=== PATIENT | female | born 1945 | race Caucasian/White ===

== ENCOUNTER 2018-01-25 19:02 | Emergency (ER) | payer MEDICARE, BC, SELFPAY ==
[2018-01-25 19:06] VITALS: BP 154/81; PULSE 98; RESP 15; TEMP 37.1; O2SAT 93; BMI 30.8
--- NOTE | 2018-01-25 19:26 | EKG12_ITS ---
Test Reason : GI BLEED Blood Pressure : / mmHG Vent. Rate : 087 BPM Atrial Rate : 087 BPM P-R Int : 118 ms QRS Dur : 076 ms QT Int : 364 ms P-R-T Axes : 056 054 042 degrees QTc Int : 438 ms Normal sinus rhythm Nonspecific ST abnormality Abnormal ECG Confirmed by BOOGIE GUNTER, DARREN ([id number]), fashion editor TARA SERRANO ([id number]) on 01/29/2018 3:16:23 PM Referred By: LIZETH Confirmed By:DARREN HYMAN MD
[2018-01-25] MEDS: 0.9% Normal Saline 1,000 ML 1000 ML IV (19:36)
--- NOTE | 2018-01-25 19:38 | ED.VISSUMM ---
- ER Visit Summary Date of Service: 01/25/18 Chief Complaint: Diarrhea History of Present Illness: The patient is a 72 F presenting with diarrhea. She states she had multiple bowel movements on . She felt improved throughout the weekend. States that today she began having diarrhea again. She states she has had black tarry stool. Her last stool was blood-tinged mucus. She has had dizziness with no syncope. She denies abdominal pain. Denies recent antibiotics, recent travel. Denies possibility of bad food exposure. She is not on blood thinners. History of previous GI bleed secondary to NSAIDs. Physical Examination: Vitals are stable. Patient is afebrile. Alert no acute distress. HEENT exam is unremarkable. Neck is supple. Lungs are clear and equal bilaterally. Heart is regular rate and rhythm. Abdomen is soft nontender nondistended. No guarding or rebound Extremities are unremarkable. Skin is warm and dry. No focal neurologic deficit. Remainder of exam is unremarkable. Emergency Department Course and Treatment: Patient is given IV fluids. EKG is normal sinus rhythm rate of 87. CBC, chemistries unremarkable. INR is 1.2. Stool is guaiac negative. Orthostatics are negative. Patient had no further diarrhea in the emergency department. She has a normal white count. Her hemoglobin is 15.2. She is comfortable with discharge home and follow-up with her primary care physician. She is advised return to ED for any worsening complaints. Disposition: Discharge home Impression: Diarrhea This note was generated with [employer] dictation software. It may contain incorrect words, spelling, and punctuation that were not noted in review of the chart prior to signing ED Disposition - Plan for ED Patient: Chief Complaint: GI Bleed Instructions: ED Diarrhea Viral Referrals: Nelia Smith DO [Primary Care Provider] -
[2018-01-25 19:39] VITALS: BP 155/71; BP 168/67; BP 170/80; PULSE 87; PULSE 90
[2018-01-25 19:50] LABS: Absolute Lymphocyte Count 1.29 X10^3/ul (0.83-4.51); Absolute Neutrophil Count 5.5 X10^3/uL (2.0-7.7); Basophil# 0.01 X10^3/uL; Basophil% 0.1 % (0-1); Eosinophil# 0.07 X10^3/uL; Hematocrit 45.7 % (37-47); Hemoglobin 15.2 g/dl (12.0-15.0); Lymphocyte # 1.29 X10^3/ul (4.0); Lymphocyte % 17.6 % (19-41); Mean Corp Hgb Conc 33.3 g/gl (32-36); Mean Corpuscular Hgb 31.6 pg (27.0-32.0); Monocyte# 0.44 X10^3/uL; Neutrophil % 75.2 % (47-70); POSITIVE COUNT NO; POSITIVE DIFFERENTIAL NO; POSITIVE MORPHOLOGY NO; Platelet Count 215 K/mm3 (150-450); RBC Distribution Width CV 13.5 % (11.6-14.6); RBC Distribution Width SD 46.9 fl (35.1-43.9); Red Blood Count 4.81 M/mm3 (4.2-5.4); White Blood Count 7.3 K/mm3 (4.4-11.0)
[2018-01-25 19:57] LABS: International Normalized Ratio 1.2; Partial Thromboplast Time 27.6 Seconds (24.1-36.2); Prothrombin Time (Protime)PT. 14.9 SECONDS (11.7-14.9)
[2018-01-25 22:00] LABS: Anion Gap 9 (5-15); BUN 13 mg/dL (7-18); BUN/Creat Ratio 16.9 RATIO (10-20); Calcium,Total 8.5 mg/dL (8.5-10.1); Chloride 107 mmol/L (98-107); Creatinine, Serum 0.77 mg/dL (0.55-1.02); EST Glomerular Filtration Rate 78 mL/min (>60); Est Glom Filt Rate - Afr Amer 94 mL/min (>60); Estimated Creatinine Clearance 44.41 ml/min; Glucose 118 mg/dL (74-106); Potassium 3.6 mmol/L (3.5-5.1); Sodium Level 140 mmol/L (136-145)
--- NOTE | 2018-01-25 22:24 | ED.DEP ---
ED Disposition - Plan for ED Patient: Chief Complaint: GI Bleed Instructions: ED Diarrhea Viral Referrals: Nelia Smith DO [Primary Care Provider] -
[2018-01-25 22:43] VITALS: BP 172/78; PULSE 82; RESP 20
== END 2018-01-25 22:50 | disposition home or self-care (01) ==
PROVIDERS: Emergency Provider Emergency Medicine; Family Provider Internal Medicine; PCP Internal Medicine
DX: R19.7 Diarrhea, unspecified (principal); R11.0 Nausea; I10 Essential (primary) hypertension; R42 Dizziness and giddiness; Z79.82 Long term (current) use of aspirin
CPT/HCPCS: 80048; 82274; 85025; 85610; 85730; 93005; 96360; 99285; J7030; A4216

== ENCOUNTER → 2018-09-10 08:32 | Outpatient (CLI) | payer MEDICARE, BC, SELFPAY ==
[2018-09-10 10:42] LABS: BUN 12 mg/dL (7-18); EST Glomerular Filtration Rate 65 mL/min (>60); Est Glom Filt Rate - Afr Amer 79 mL/min (>60)
--- OUTSIDE RECORDS SUMMARY | 2018-10-26 21:06 | XMS RPT_ITS | Continuity of Care Document ---
:1945 Author Organization [facility] Address [address] [facility] [address] [place] [address] Phone Care Team Providers Name Role Phone Nelia Smith DO Unavailable Andrei GUNTER, Dr. Yas Hurt Unavailable RIYA Sorensen Unavailable Unavailable Jennifer HARRISAlbina Unavailable Unavailable Unavailable Problems Name Dates Details Abnormal EKG (R94.31, 794.31) Status: Active Allergic rhinitis due to other allergen (J30.89, 477.8) Comments: note written forHSA for otc meds Status: Active Annual Medicare Phyiscal WITHOUT abnormal findings (Renamed from Encounter for general adult medical examination without abnormal findings) (Z00.00, V70.9) Status: Active Aortic aneurysm, abdominal (I71.4, 441.4) Comments: stable & repaired - followed by cheo ROCKWE[place], abdominla pain Status: Active Aortic dissection, thoracic (I71.01, 441.01) Comments: s/p repair 2012- stable and good Status: Active Arm DVT (deep venous thromboembolism), acute, bilateral (I82.623, 453.82) Comments: 12/20/15 presented with pain in LUEOn Xarelto since 12/20/15Repeat Dopplers:Acute superficial thromblephitis, no DVTDenies pain or sweeling in arm, deneis CP, SOBdenies bleeding, blood in stool , black st ioolHad colitis of left hemicolon with GI bleed 12/14/15(before xarelto) Status: Active Benign essential HTN (I10, 401.1) Status: Active Bladder mass (N32.89, 596.89) Comments: ? bladder air/bloodMay 24 Dr crwoley Cystoscopy Status: Active BMI 32.0-32.9,adult (Z68.32, V85.32) Status: Active Body mass index 31.0-31.9, adult (Renamed from BMI 31.0-31.9,adult) (Z68.31, V85.31) Status: Active Chronic obstructive asthma with acute exacerbation (Renamed from Chronic obstructive asthma with exacerbation) (J44.1, 493.22) Status: Active Colitis (K52.9, 558.9) Comments: no raw fruit vegatables Status: Active COPD (chronic obstructive pulmonary disease) (J44.9, 496) Comments: alpha 1-antitrypsin defic screen 07/29/16 Status: Active Cough (R05, 786.2) Status: Active Deliveries (Parity) Comments: 2 Status: Active Diastolic dysfunction (I51.9, 429.9) Comments: already on BB Status: Active Diverticulosis of colon (K57.30, 562.10) Comments: stable Status: Active Encounter for annual general medical examination with abnormal findings in adult (Z00.01, V70.0) Status: Active Encounter for annual general medical examination with abnormal findings in adult (Z00.01, V70.0) Status: Active Encounter for screening for malignant neoplasm of colon (Renamed from Special screening for malignant neoplasms, colon) (Z12.11, V76.51) Comments: pt refused stool cards a;nd cologard for this yrscope due next Status: Active Encounter for screening for malignant neoplasm of colon (Renamed from Special screening for malignant neoplasms, colon) (Z12.11, V76.51) Status: Active Encounter for screening mammogram for breast cancer (Renamed from Encounter for screening mammogram for malignant neoplasm of breast) (Z12.31, V76.12) Status: Active Family history of diabetes mellitus (Z83.3, V18.0) Status: Active Family history of malignant neoplasm of breast (Z80.3, V16.3) Status: Active Fibromyalgia (M79.7, 729.1) Comments: stable Status: Active Heart murmur (R01.1, 785.2) Status: Active Hernia, umbilical (K42.9, 553.1) Status: Active History of peptic ulcer (Z87.11, V12.71) Status: Active Insomnia (G47.00, 780.52) Status: Active Irritable bowel syndrome (K58.9, 564.1) Status: Active Need for prophylactic vaccination and inoculation against influenza (Renamed from Need for immunization against influenza) (Z23, V04.81) Status: Active Nonsmoker (Z78.9, V49.89) Status: Active Osteopenia (M85.80, 733.90) Comments: dexa 09/13 Status: Active Pain in joint, upper arm, right (M25.521, 719.42) Comments: new develpment Status: Active PFO (patent foramen ovale) (Q21.1, 745.5) Comments: negative bubble study on echo 2018 Status: Active Post-menopausal (Z78.0, V49.81) Status: Active Pregnancies () Comments: 2 Status: Active PRE-OPERATIVE EXAMINATION, UNSPECIFIED (Z01.818, V72.84) Status: Active Unspecified Diagnosis Status: Active Urine, incontinence, stress female (N39.3, 625.6) Comments: lu rx this but i refill for her Status: Active Vaginal yeast infection (B37.3, 112.1) Comments: will use otc 7 monostat and gave her coupon Status: Active Vitamin D deficiency (E55.9, 268.9) Status: Active Medications Name Dates Details Amitriptyline HCl 10 MG Oral Tablet 1 (one) Tablet daily for 0 days Quantity: 90 {Tablet} Refills: 3 Ordered:29-Jun-2018 Vinita Smith DO, DO, Kathleen Start : 29-Jun-2018 Active Baby Aspirin 81 MG Oral Tablet Chewable (81 MG) Active MELATONIN, 10MG (Oral Tablet) 1 (one) Tablet Tablet qhs for 0 days Quantity: 30 {Tablet} Refills: 0 Ordered:17-Dec-2015 Jaimee Sorensen LPN Start : 14-Dec-2015 Active Metoprolol Tartrate 50 MG Oral Tablet 1 (one) Tablet bid for 90 days Quantity: 180 {Tablet} Refills: 3 Ordered:09-Oct-2017 Vinita Smith DO, DO, Kathleen Start : 09-Oct-2017 Active Vitamin B6 250 MG Oral Tablet 1 (one) Milligram 50mg bid for 0 days Quantity: 100 {Milligram} Refills: 5 Ordered:24-Sep-2017 Vinita Smith DO, DO, Kathleen Start : 24-Sep-2017 Active VITAMIN D3, 2000UNIT (Oral Capsule) 2 (two) Capsule Capsule qd for 0 days Quantity: 60 {Capsule} Refills: 3 Ordered:30-Aug-2015 Vinita Smith DO, DO, Kathleen Start : 21-Aug-2015 Active ADVIL, 200MG (Oral Tablet) 1 QD for 0 days Refills: 0 Ordered:11-Nov-2012 CANDICE Carrillo End : 11-Nov-2012 Inactive Comments:(pt been taking 6-10 daily for neck pain) Albuterol Sulfate (2.5 MG/3ML) 0.083% Inhalation Nebulization Solution 1 (one) Nebulized Soln q 6 hrs prn for 30 days Quantity: 1 {Box} Refills: 0 Ordered:20-Oct-2016 Vinita Smith DO, DO, Kathleen Start : 20-Oct-2016 End : 19-Nov-2016 Inactive ALEVE, 220MG (Oral Capsule) 2 (two) Capsule Capsule qd for 30 days Refills: 0 Ordered:10-Apr-2015 CANDICE Carrillo Start : 05-Feb-2015 End : 10-Apr-2015 Inactive JEANNIE-D ALLERGY & CONGESTION, 60-120MG (Oral Tablet Extended Release 12 Hour) 1 Tablet ER 12HR q12hr for 0 days Quantity: 20 {Tablet_ER_12HR} Refills: 0 Ordered:16-Feb-2012 Rosy Tuttle LPN Start : 08-Jul-2011 End : 16-Feb-2012 Inactive AMBIEN, 5MG (Oral Tablet) 1 (one) Tablet qhs prn for 30 days Quantity: 10 {Tablet} Refills: 0 Ordered:14-Dec-2015 Albina Rodriguez CNP Start : 14-Dec-2015 End : 14-Dec-2015 Inactive AMITRIPTYLINE HCL, 10MG (Oral Tablet) 1 Tablet QD for 0 days Quantity: 90 {Tablet} Refills: 3 Ordered:26-Nov-2015 Jaimee Sorensen LPN Start : 04-Jul-2015 End : 26-Nov-2015 Inactive AMITRIPTYLINE HCL, 10MG (Oral Tablet) 1 Tablet QD for 0 days Quantity: 90 {Tablet} Refills: 3 Ordered:26-Nov-2015 Jaimee Sorensen LPN Start : 04-Jul-2015 End : 26-Nov-2015 Inactive BACTRIM DS, 800-160MG (Oral Tablet) 1 (one) Tablet bid for 0 days Quantity: 20 {Tablet} Refills: 0 Ordered:28-Nov-2014 CANDICE Carrillo Start : 23-Oct-2014 End : 28-Nov-2014 Inactive Biaxin XL Pac 500 MG Oral Tablet Extended Release 24 Hour 2 (two) Tablet ER 24HR daily for 10 days Quantity: 20 {Tablet} Refills: 0 Ordered:14-Oct-2016 Jennifer HARRIS Albina Rudd Start : 14-Oct-2016 End : 24-Oct-2016 Inactive BIAXIN, 500MG (Oral Tablet) 1 Tablet bid for 0 days Quantity: 20 {Tablet} Refills: 0 Ordered:01-Jul-2012 Jaimee Sorensen LPN Start : 27-Feb-2012 End : 01-Jul-2012 Inactive Comments:will call if needvoid after 30 days CALMOSEPTINE, 0.44-20.6% (External Ointment) 1 (one) Ointment bid prn for 30 days Refills: 0 Ordered:15-Jan-2016 Jennifer HARRISAlbina Start : 14-Dec-2015 End : 13-Jan-2016 Inactive CHERATUSSIN AC, 100-10MG/5ML (Oral Syrup) 1 Teaspoon(s) q hs prn cough for 0 days Quantity: 6 {Ounce(s)} Refills: 0 Ordered:01-Jul-2012 Jaimee Sorensen LPN Start : 27-Feb-2012 End : 01-Jul-2012 Inactive CIPRO, 500MG (Oral Tablet) 1 Tablet bid for 10 days Quantity: 20 {Tablet} Refills: 0 Ordered:14-Jun-2010 Vinita Smith DO, DO, Kathleen Start : 14-Jun-2010 End : 24-Jun-2010 Inactive CYCLOBENZAPRINE HCL, 10MG (Oral Tablet) 1 (one) Tablet Tablet bid as needed for 0 days Quantity: 20 {Tablet} Refills: 0 Ordered:19-Apr-2015 CANDICE Carrillo Start : 05-Feb-2015 End : 19-Apr-2015 Inactive Comments:Medication taken as needed. ELAVIL, 10MG/ML (IM Solution) 1 QHS / HS for 0 days Refills: 0 Ordered:21-Jun-2007 Jaimee Sorensen LPN End : 21-Jun-2007 Inactive EVISTA, 60MG (Oral Tablet) 1 Tablet QD for 0 days Quantity: 90 {Tablet} Refills: 3 Ordered:10-Mar-2016 Jaimee Sorensen LPN Start : 04-Jul-2015 End : 10-Mar-2016 Inactive EVISTA, 60MG (Oral Tablet) 1 Tablet QD for 0 days Quantity: 90 {Tablet} Refills: 3 Ordered:10-Mar-2016 Jaimee Sorensen LPN Start : 04-Jul-2015 End : 10-Mar-2016 Inactive FEXOFENADINE HCL, 60MG (Oral Tablet) 1 (one) Tablet Tablet bid for 0 days Quantity: 60 {Tablet} Refills: 0 Ordered:10-Oct-2014 CANDICE Carrillo Start : 03-Mar-2014 End : 10-Oct-2014 Inactive FUROSEMIDE, 20MG (Oral Tablet) 1 (one) Tablet qd for 0 days Quantity: 4 {Tablet} Refills: 0 Ordered:04-Apr-2015 Jaimee Sorensen LPN Start : 28-Mar-2015 End : 04-Apr-2015 Inactive Levaquin 500 MG Oral Tablet 1 Tablet daily for 10 days Quantity: 10 {Tablet} Refills: 0 Ordered:21-Oct-2016 Vinita Smith DO, DO, Kathleen Start : 21-Oct-2016 End : 31-Oct-2016 Inactive LEVAQUIN, 500MG (Oral Tablet) 1 (one) Tablet daily for 10 days Quantity: 10 {Tablet} Refills: 0 Ordered:10-Jul-2014 Albina Rodriguez CNP Start : 10-Jul-2014 End : 20-Jul-2014 Inactive METOPROLOL TARTRATE, 25MG (Oral Tablet) 1 (one) Tablet bid for 30 days Refills: 0 Ordered:14-Dec-2015 Albina Rodriguez CNP Start : 14-Dec-2015 End : 14-Dec-2015 Inactive METOPROLOL TARTRATE, 50MG (Oral Tablet) 1 tab bid (50 MG) Inactive Comments:per [facility] MYCELEX, 10MG (Mouth/Throat Nola) 1 Nola 5 x daily for 10 days Quantity: 50 Refills: 0 Ordered:13-Dec-2010 Rosy Tuttle LPN Start : 13-Dec-2010 End : 23-Dec-2010 Inactive MYRBETRIQ, 25MG (Oral Tablet Extended Release 24 Hour) 1 (one) Tablet ER 24HR daily (25 MG) Start : 16-Jan-2016 Inactive Comments:Dr. Leigh NASACORT AQ, 55MCG/ACT (Nasal Aerosol Solution) 2 (two) Puff(s) daily for 0 days Quantity: 1 {Aerosol_Soln} Refills: 1 Ordered:16-Feb-2012 Rosy Tuttle LPN Start : 08-Jul-2011 End : 16-Feb-2012 Inactive NASONEX, 50MCG/ACT (Nasal Suspension) 2 (two) Suspension daily for 0 days Quantity: 1 {Cartridge} Refills: 0 Ordered:09-Jun-2014 Jaimee Sorensen LPN Start : 13-Feb-2014 End : 09-Jun-2014 Inactive NASONEX, 50MCG/ACT (Nasal Suspension) 2 squirts Suspension qd for 0 days Quantity: 1 {Suspension} Refills: 0 Ordered:03-Jun-2013 Jaimee Sorensen LPN Start : 11-Nov-2012 End : 03-Jun-2013 Inactive Comments:or generic equivalent PredniSONE 20 MG Oral Tablet 1 Tablet bid for one day then qd for 4days for 5 days Quantity: 6 {Tablet} Refills: 0 Ordered:21-Oct-2016 Vinita Smith DO, DO, Kathleen Start : 21-Oct-2016 End : 26-Oct-2016 Inactive PREDNISONE, 10MG (Oral Tablet) 3 (three) Tablet pills for 3 days 2 pills for 3 days 1 pill for 3 days with food in am for 0 days Quantity: 18 {Tablet} Refills: 0 Ordered:09-Jun-2014 Jaimee Sorensen LPN Start : 03-Mar-2014 End : 09-Jun-2014 Inactive ProAir HFA 108 (90 Base) MCG/ACT Inhalation Aerosol Solution 2 (two) Aerosol Soln Aerosol Soln tid, prn for 30 days Quantity: 1 {Inhaler} Refills: 3 Ordered:24-Oct-2016 IsidraStanford proctor Start : 14-Oct-2016 End : 24-Oct-2016 Inactive PROBIOTIC & ACIDOPHILUS EX ST (Oral Capsule) Inactive PYRIDIUM, 100MG (Oral Tablet) 1 Tablet tid for 2 days Quantity: 6 {Tablet} Refills: 0 Ordered:11-Jun-2010 Arinmerced STEVENAlbina Start : 07-Jun-2010 End : 09-Jun-2010 Inactive ROBITUSSIN PEAK COLD MULTI-SYM, 6.25-2.5-160MG/5ML (Oral Liquid) 1 (one) Liquid TAD for 0 days Quantity: 6 {Ounce} Refills: 0 Ordered:09-Jun-2014 Jaimee Sorensen LPN Start : 03-Mar-2014 End : 09-Jun-2014 Inactive Symbicort 80-4.5 MCG/ACT Inhalation Aerosol 1 (one) Aerosol Aerosol bid for 0 days Quantity: 1 {Each} Refills: 0 Ordered:24-Oct-2016 Stanford Paz Start : 14-Oct-2016 End : 24-Oct-2016 Inactive SYMBICORT, 160-4.5MCG/ACT (Inhalation Aerosol) 1 (one) Aerosol Puff bid for 0 days Quantity: 1 {Inhaler} Refills: 0 Ordered:26-Nov-2015 Jaimee Sorensen LPN Start : 01-Jun-2015 End : 26-Nov-2015 Inactive Vitamin B Complex-C Oral Capsule 1 (one) Capsule daily for 30 days Refills: 0 Ordered:24-Sep-2017 Radha Rain LPN Start : 14-Dec-2015 End : 24-Sep-2017 Inactive Xarelto 20 MG Oral Tablet 1 (one) Tablet Tablet qd for 30 days Quantity: 30 {Tablet} Refills: 1 Ordered:29-Jul-2016 Stanford Paz Start : 28-Apr-2016 End : 29-Jul-2016 Inactive Comments:then will need to go to 20mg 1 qd ASPIRIN EC, 81MG (Oral Tablet Delayed Release) 1 (one) Tablet DR Tablet DR qd for 30 days Refills: 0 Ordered:16-Jan-2016 Lorraine Romero LPN Start : 05-Feb-2015 End : 16-Jan-2016 Discontinued AUGMENTIN, 875-125MG (Oral Tablet) 1 Tablet bid for 0 days Quantity: 28 {Tablet} Refills: 0 Ordered:01-Jun-2015 Lorraine Romero LPN Start : 19-Apr-2015 End : 01-Jun-2015 Discontinued CEFTIN, 500MG (Oral Tablet) 1 (one) Tablet bid for 0 days Quantity: 20 {Tablet} Refills: 0 Ordered:01-Jun-2015 Lorraine Romero LPN Start : 19-Apr-2015 End : 01-Jun-2015 Discontinued FLAGYL, 500MG (Oral Tablet) 1 (one) Tablet q 8 hrs for 6 days Quantity: 24 {Tablet} Refills: 0 Ordered:18-Dec-2015 Rosy Tuttle LPN Start : 14-Dec-2015 End : 18-Dec-2015 Discontinued MELOXICAM, 15MG (Oral Tablet) 1 tablet daily (15 MG) End : 14-Dec-2015 Discontinued MIRALAX (Oral Powder) 1 (one) Powder 1 cap full a day Start : 16-Jan-2016 End : 14-Oct-2016 Discontinued Comments:Dr Foster MULTI-DAY PLUS IRON (Oral Tablet) 8 [facility] Tablet QD for 0 days Refills: 0 Ordered:14-Dec-2015 Lorraine Romero LPN Start : 01-Feb-2007 End : 14-Dec-2015 Discontinued PROVENTIL HFA, 108 (90 Base)MCG/ACT (Inhalation Aerosol Solution) 2 (two) Aerosol Soln tid prn for 0 days Quantity: 1 {Inhaler} Refills: 1 Ordered:30-Mar-2014 Eugenia Marie Start : 03-Mar-2014 End : 30-Mar-2014 Discontinued Comments:rylee Zithromax Z-Amanuel 250 MG Oral Tablet 2 (two) Tablet today then 1 qd for 4 days for 0 days Quantity: 1 {Package} Refills: 0 Ordered:14-Oct-2016 Lorraine Romero LPN Start : 09-Sep-2016 End : 14-Oct-2016 Discontinued Allergies and Adverse Reactions Name Dates Details Amoxil (Allergy) Status: Active Comments: Vomiting Augmentin *PENICILLINS* (Allergy) Status: Active Comments: nausea and vomiting Corticosteroids Depletion *DIETARY Status: Active PRODUCTS/DIETARY MANAGEMENT PRODUCTS* (Allergy) Comments: NO STEROIDS ALLOWED egg yolk (Allergy) Status: Active Meloxicam *ANALGESICS - ANTI-INFLAMMATORY* Status: Active (Allergy) kyle (Allergy) Status: Active Percocet *ANALGESICS - OPIOID* (Allergy) Status: Active Comments: GI upset tagamet (Allergy) Status: Active Comments: severe diarhea Past Medical History Name Dates Details Abdominal Pain,LLQ (789.04) Status: Inactive as of 26-Nov-2015 Abnormal lung sounds (R09.89, 786.7) Status: Inactive as of 11-Nov-2012 Abnormal urine odor (R82.90, 791.9) Status: Inactive as of 04-Apr-2015 Acute sinusitis, unspecified (J01.90, 461.9) Status: Inactive as of 19-Apr-2015 Breast screening (Z12.39, V76.10) Status: Inactive as of 19-Apr-2015 Bronchitis (J40, 490) Status: Inactive as of 19-Apr-2015 Bronchitis (J40, 490) Status: Inactive as of 10-Aug-2017 BRONCHITIS, NOS (490.) Status: Inactive as of 11-Nov-2012 Burning Tongue (Glossodynia) (529.6) Comments: stop mouth wash Status: Inactive as of 11-Nov-2012 Calf pain (M79.669, 729.5) Status: Inactive as of 04-Apr-2015 Candidiasis, mouth (B37.0, 112.0) Comments: resolved Status: Inactive as of 11-Nov-2012 Constipation (K59.00, 564.00) Comments: will try miralax otc first if no relief will try rx amitza withknown normal scope and h/o ibs Status: Inactive as of 03-Jun-2013 Constipation, acute (K59.00, 564.00) Comments: yes will do miralax Status: Inactive as of 29-Jul-2016 Cough (R05, 786.2) Status: Inactive as of 10-Aug-2017 Diarrhea (R19.7, 787.91) Comments: stool studiesmetamucilloose stools 5 x /dayno abd pain, NV constipation Status: Inactive as of 20-Oct-2016 Dysuria (R30.0, 788.1) Status: Inactive as of 19-Apr-2015 Elevated blood-pressure reading without diagnosis of hypertension (R03.0, 796.2) Status: Resolved as of 19-Jun-2014 Encounter for Medicare annual wellness exam (Z00.00, V70.0) Status: Inactive as of 19-Apr-2015 Encounter for other screening for malignant neoplasm of breast (Z12.39, V76.19) Status: Inactive as of 19-Apr-2015 Flu-like symptoms (R68.89, 780.99) Status: Inactive as of 20-Oct-2016 Hamstring sprain (S73.199A, 843.8) Status: Inactive as of 19-Apr-2015 Hematuria (R31.9, 599.7) Status: Inactive as of 11-Nov-2012 Ingrown nail of right middle finger (L60.0, 703.0) Status: Resolved as of 24-Sep-2017 Knee pain (M25.569, 719.46) Status: Inactive as of 19-Apr-2015 Knee pain, right (M25.561, 719.46) Status: Inactive as of 04-Apr-2015 Left arm swelling (M79.89, 729.81) Status: Inactive as of 29-Jul-2016 Leg swelling (M79.89, 729.81) Comments: varicose veins wihtsudden humidity in weather ? or is knee and hamstring on that side an etiology?- will refer to orhto for that since no better in PT Status: Inactive as of 04-Apr-2015 Low back pain (M54.5, 724.2) Status: Inactive as of 19-Apr-2015 Low HDL (under 40) (E78.6, 272.5) Status: Resolved as of 03-Jun-2013 Lower GI bleed (K92.2, 578.9) Status: Resolved as of 29-Jul-2016 Neck pain (M54.2, 723.1) Status: Inactive as of 19-Apr-2015 Pain of left upper extremity (M79.602, 729.5) Status: Inactive as of 29-Jul-2016 Peptic Ulcer Status: Inactive as of 29-Jul-2016 Phlebitis of arm (I80.8, 451.84) Status: Inactive as of 29-Jul-2016 Postoperative surgical complication involving circulatory system associated with circulatory procedure, unspecified complication (I97.89, 997.1) Status: Inactive as of 29-Jul-2016 SCREENING FOR OTHER SPECIFIED ENDOCRINE, NUTRITIONAL, METABOLIC, AND IMMUNITY DISORDERS (V77.99) Status: Inactive as of 19-Apr-2015 Sinus congestion (R09.81, 478.19) Comments: hot showers, mucinex, and plenty of water Status: Inactive as of 19-Apr-2015 Sinusitis (J32.9, 473.9) Comments: use mucinex to liquify mucous Status: Inactive as of 26-Nov-2015 Swelling of joint of upper arm, right (M25.421, 719.02) Status: Inactive as of 29-Jul-2016 Unspecified bacterial pneumonia (J15.9, 482.9) Status: Resolved as of 01-Jul-2012 Unspecified Diagnosis Status: Inactive as of 19-Apr-2015 Unspecified Diagnosis Status: Inactive as of 19-Apr-2015 Vision Damage Status: Inactive as of 11-Nov-2012 Visual changes (H53.9, 368.9) Status: Inactive as of 19-Apr-2015 Well woman exam (Z00.00, V70.0) Status: Inactive as of 03-Jun-2013 Wheezing (R06.2, 786.07) Status: Inactive as of 11-Nov-2012 Wheezing (R06.2, 786.07) Status: Inactive as of 19-Apr-2015 Procedures Procedure Dates Details appendectomy 1964 Completed breast biopsy/mastectomy 2001 Completed Colonoscopy Completed Comments: 2000 hysterectomy Completed Comments: 1988 kidney/bladder polyps 1971 Completed Sigmoidoscopy Completed Comments: 1990 Skin Cancer Completed Comments: Removal [facility] tubal ligation 1971 Completed Date Value Details 29-Jan-2018 12 Lead Electrocardiogram Result: Comments: See Note; NOTES: [facility] Cardiovascular Services [address] [place] [address] 12 Lead EKG 01/25/181937 MR#: [id number] Acct: [id number] Name: LEYLA RIOJAS Rep #: [id number] : 1945 72 From: Ceasar Wagner MD Attending Dr: Status: DEP ER Ordering Dr: Laura Alves MD Date: 01/25/18 Location: ED Sex: F C Admitted: Test Reason : GI BLEED Blood Pres sure : / mmHG Vent. Rate : 087 BPM Atrial Rate : 087 BPM P-R Int : 118 ms QRS Dur : 076 ms QT Int : 364 ms P-R-T Axes : 056 054 042 degrees QTc Int : 438 ms Normal sinus rhythm Nonspecific ST abn ormality Abnormal ECG Confirmed by CEASAR WAGNER MD ([id number]), acquisition editor TARA SERRANO ([id number]) on 01/29/2018 3:16:23 PM Referred By: LIZETH Confirmed By:CEASAR WAGNER MD 01/29/18 1516 Date Ceasar Wagner MD CC: Laura Alves MD; Nelia Smith DO Signed 25-Jan-2018 Emergency Department Summary Result: Comments: See Note; NOTES: [facility] Medical Records Department [address] [place] [address] Emergency Department Summary 01/25/18 1938 MR#: [id number] Acct: [id number] Name: LEYLA RIOJAS Rep #: [id number] : 1945 72 From: Laura Alves MD PCP: Nelia Smith DO Status: REG ER - ER Visit Summary Date of Service: 01/25/18 Chief Complaint: Diarrhea History of Present Illness: The patient is a 72 F presenting with diarrhea. She states she had multiple bowel movements on . She felt improved throughout the weekend. States that today she began having diarrhea again. She states she has had black tarry stool. Her last stool was blood-tinged mucus. She has had dizziness with no syncope. She denies abdominal pain. Denies recent antibiotics, recent daryl el. Denies possibility of bad food exposure. She is not on blood thinners. History of previous GI bleed secondary to NSAIDs. Physical Examination: Vitals are stable. Patient is afebrile. Alert no acute distress. HEENT exam is unremarkable. Neck is supple. Lungs are clear and equal bilaterally. Heart is regular rate and rhythm. Abdomen is soft nontender nondistended. No guarding or rebound Extremities are unremarkable. Skin is warm and dry. No focal neurologic deficit. Remainder of exam is unremarkable. Emergency Department Course and Treatment: Patient is given IV fluids. EKG is normal sinus rhy thm rate of 87. CBC, chemistries unremarkable. INR is 1.2. Stool is guaiac negative. Orthostatics are negative. Patient had no further diarrhea in the emergency department. She has a normal white count. Her hemoglobin is 15.2. She is comfortable with discharge home and follow-up with her primary care physician. She is advised return to ED for any worsening complaints. Disposition: Discharge home Im pression: Diarrhea This note was generated with [employer] dictation software. It may contain incorrect words, spelling, and punctuation that were not noted in review of the chart prior to signing ED D isposition - Plan for ED Patient: Chief Complaint: GI Bleed Instructions: ED Diarrhea Viral Referrals: Nelia Smith DO [Primary Care Provider] - What to do if you have Problems For any increase d pain, shortness of breath, bleeding, nausea or vomiting, chest pain, or any unexpected problems, contact your Primary Care Provider. Call [facility] ([phone]) or [facility]. Call 911 if necessary. 01/25/182227 <Electronically signed by Laura Alves MD> Date Laura Alves MD Cosigner Sign ature (If Indicated): Date CC: Nelia Smith DO 25-Jan-2018 Discharge Instruction Result: Comments: See Note; NOTES: [facility] Medical Records Department [address] [address] Discharge Instruction 01/25/182223 MR#: [id number] Acct: [id number] Name: LEYLA THOMPSON Rep #: [id number] : 1945 72 From: Laura Alves MD PCP: Nelia Smith DO Status: REG ER ED Disposition - Plan for ED Patient: Chief Complaint: GI Bleed Instructions: ED Diarr hea Viral Referrals: Luis,Nelia, DO [Primary Care Provider] - What to do if you have Problems For any increased pain, shortness of breath, bleeding, nausea or vomiting, chest pain, or any unexp ected problems, contact your Primary Care Provider. Call [facility] ([phone]) or report to the closest Emergency Room. Call 911 if necessary. 01/25/18 8818 <Electronically signed by Laura Alves MD> Date Laura Alves MD Cosigner Signature (If Indicated): Date CC: Nelia Smith DO 09-Oct-2017 Echocardiogram Complete Result: Comments: See Note; NOTES: [facility] Cardiovascular Services [address] [place] [address] Echo Complete 10/08/17 1244 MR#: [id number] Acct: [id number] Name: LEYLA RIOJAS Rep #: [id number] : 1945 72 From: Zaki Dick MD Attending Dr: Nelia Smith DO Status: REG CLI Ordering Dr: Nelia Smith DO Date: 10/08/17 Location: [facility] Sex: F C Ad[facility] For Study: ABN EKG Procedure This was a 2D Doppler, Color Flow transthoracic echocardiogram. Exam performed in department. Left Ventricle Normal size and thickness. The estimated ejection fraction i s 65 %. Stage 2 diastolic dysfunction. No regional wall motion abnormalities noted. Right Ventricle Normal size and thickness. Normal systolic function. Atria Normal left atrium. Normal right atrium. Normal atrial septum. Bubble contrast study negative for right to left interatrial shunt. Possible small PFO with L to R shunt, but negative bubble study. Mitral Valve The mitral valve is structurally normal. No prolapse or stenosis seen. Tricuspid Valve Normal tricuspid valve. Trivial tricuspid valve insufficiency. Right ventricular systolic pressure estimated to be 32 mmHg. Aortic Valve Normal ao rtic valve. Trisinus/trileaflet aortic valve. Pulmonic Valve Normal pulmonic valve. Great Vessels Normal aortic root. Normal arch. Normal inferior vena cava. Inferior vena cava collapse with sniff. Pe ricardium/Pleural No pericardial effusion. Medication 22 gauge I.V. with prn adaptor inserted into right arm. Performed a rapid injection of agitated mix of 9 cc saline and 1cc air to assess for atrial septal defect. MMode/2D Measurements AND Calculations LVIDd: 4.2 cm IVSd: 1.1 cm Ao root diam: 2.7 cm LVIDs: 2.7 cm LVPWd: 1.2 cm LA dimension: 4.0 cm RVDd: 2.4 cm FS: 36.6 % LAV(MOD-bp): 57.7 ml LA A4 area: 19.9 cm2 RA A4 area: 17.7 cm2 LAV(MOD-bp) Indexed: 30.2 ml/m2 LAV(MOD-sp2): 58.4 ml LAV(MOD-sp4): 56.9 ml Time Measurements MV dec time: 0.24 sec Doppler Measurements AND Calculations MV E max jeremiah: 119.4 cm/sec Lat Peak E' Jeremiah: 9.3 cm/sec Med Peak E' Jeremiah: 8.5 cm/sec MV A max jeremiah: 72.8 cm/sec E/E' lat: 12.9 E/E' med: 14.0 MV E/A: 1.6 Ao V2 max: 129.8 cm/sec LV V1 max: 86.0 cm/sec PA V2 max: 79.3 cm/sec Ao max P.7 mmHg LV V1 m ax P.0 mmHg TR max jeremiah: 259.4 cm/sec TR max P.9 mmHg Interpretation Summary The estimated ejection fraction is 65 %. Stage 2 diastolic dysfunction. Bubble contrast study negative for right to left interatrial shunt. Possible small PFO with L to R shunt, but negative bubble study. Trivial tricuspid valve insuffic iency. Right ventricular systolic pressure estimated to be 32 mmHg. Compared to echo report dated 06/12/2014, no appreciable changes noted. Ordering Physician: Nelia Smith Referring Physician: Nelia Smith Performed By: Marcia Ruiz, GISEL, RVT 10/09/17 1136 Date Zaki Dick MD CC: Nelia Smith DO Date Dictated: 10/08/17 1244 Date Transcribed: 10/09/17 1136 Law Instructor: Signed 30-Sep-2017 Stress Report Result: Comments: See Note; NOTES: [facility] Cardiovascular Services [address] [place] [address] MR#: [id number] Acct: [id number] Name: LEYLA RIOJAS Rep #: [id number] : 1 10/25/1944 72 From: Ceasar Wagner MD Primary Care: Luis Nelia Status: REG CLI Ordering Dr: Sex: F C Stress Test Report Exercise myocardial perfusion stress test. 72-year-old lady with a hist ory of pain and abnormal EKG. Stress protocol: Resting EKG demonstrates normal sinus rhythm with a rate of 75 bpm. Resting blood pressure is 140/82 mmHg. The patient exercised according to the regular Mark protocol for total duration of 4 minutes and 20 seconds. Completing 1 minute and 20 seconds into stage II of the Mark protocol. The maximum heart rate attained was 150 bpm which was 102% of the m aximum predicted heart rate the maximum workload attained was 6.1 metabolic equivalents. The patient maintained sinus rhythm throughout the recording. At rest there were no ST or T-wave changes noted zavaleta ggest ischemia. At peak exercise upsloping ST changes only were noted with no meet the criteria for ischemia. No clinical angina was noted test was terminated due to generalized fatigue and shortness of breath. Resting blood pressure was 140/82 with a peak blood pressure 194/88. Myocardial perfusion protocol: 11.5 mCi of technetium 99m sestamibi was injected at rest. The patient exercised for 4 noel zenobia and 20 seconds. Standard Mark protocol at peak exercise 33.8 mCi of technetium 99m sestamibi was injected. Stress images were obtained. Stress and rest images were reconstructed and compared in the short axis vertical long and horizontal long axis. Gated images were also obtained. Perfusion SPECT analysis: Review of the stress images demonstrate normal uptake of tracer noted in all areas of the myocardium. The resting images similarly demonstrate normal uptake of tracer noted in all areas of the myocardium no areas of reversibility are noted no previous infarct is noted. Gated SPECT analysis: The gated ejection fraction is noted to be hyperdynamic with ejection fraction over 75%. Conclusion: Normal exercise myocardial perfusion stress test at a moderate workload. Mild functional aerobic im pairment. Preserved ejection fraction. 09/30/1744 <Electronically signed by Ceasar Wagner MD> Date Ceasar Wagner MD CC: Nelia Luis Date Dictated: 09/30/17937 Date Transcribed: 09/30/17937 Law Instructor: [place] Signed 22-Sep-2017 Dexa Bone Density Study (HP) Result: Comments: See Note; NOTES: [facility] Imaging Services [address] [place] [address] Dexa Bone Density Study (HP) MR#: [id number] Acct: [id number] Name: LEYLA RIOJAS Rep #: [id number] : 1945 F 72 From: Lazaro Abrams MD PCP: Nelia Smith DO Status: REG CLI Study: Dexa Bone Density Study (HP) Date of Exam: 09/22/17 Exam# [id number] Ordering Dr: Yojana Smith DO STUDY: DUAL ENERGY X-RAY ABSORPTIOMETRY / DXA REASON FOR EXAM: Female, 72 years old. The patient is postmenopausal. Loss of height. TECHNIQUE: Bone Mineral Density (BMD) measurements of anabel mbar spine and bilateral hips were obtained. COMPARISON: Comparison is made with prior study dated August 14, 2015. FINDINGS: Lumbar Spine (L1-L4): g/cm2 (1.171) / T-score (-0.2) / Z-score (1.5) Findings are suggestive of normal bone density with a low fracture risk. Left Femur Total: g/cm2 (1.036) / T-score (0.2) / Z- score (1.9) Left Femoral Neck: g/cm2 (0.95 1) / T-score (-0.6) / Z-score (1.2) Right Femur Total: g/cm2 (1.024) / T-score (0.1) / Z-score (1.8) Right Femoral Neck: g/cm2 (0.907) / T-score (-0.9) / Z- score (0.9) The T-Scores on the most recent p rior examination were: Lumbar Spine (L1-L4): There has been worsening of bone density since the previous examination. Left Femur Total: which represents a worsening of 1.4%. Right Femur Total: which r epresents an improvement of 3.3%. HPBD/Dexa Bone Density Study (HP) IMPRESSION: The patient is considered normal as outlined below according to [place] Organization (WHO) criteria with a low fracture risk. There has been worsening of bone density since the previous examination. Reference Information: The T-score is the number of standard deviations above or below the standard which is normal for young adults at their peak bone mineral density. The World Health Organization (WHO) interprets the T-scores as follows: Above -1 Normal bone density Between -1 and -2.5 Osteopenia Equal to / or below -2.5 Osteoporosis As a practical clinical guideline, osteopenia may be graded as follows: Mild -1 through - 1.5 Moderate -1.6 through -2.0 Severe -2.1 through -2.4 The Z-score is the number of standard deviations above or below age-matched controls. A Z-score of less than -1.5 would be considered abnormal. References: 1. NIH Osteoporosis and Related Bone Diseases http://www.osteo.org 2. International Society for Clinical Densitometry http://www.iscd.org 3. National Osteoporosis Foundation http://www.nof.o rg Electronically Signed: Lazaro Abrams MD at 14:49 EST Tel [phone], Service support , CC: Nelia Smith DO Law Instructor: Signed 22-Sep-2017 SCREENING MAMM (CAD), BILAT Result: Comments: See Note; NOTES: [facility] Imaging Services [address] [place] [address] SCREENING MAMM (CAD), BILAT MR#: [id number] Acct: [id number] Name: LEYLA RIOJAS Rep #: [id number] : 1945 F 72 From: Armen Smith MD PCP: Nelia Smith DO Status: REG CLI Study: SCREENING MAMM (CAD), BILAT Date of Exam: 09/22/17 Exam# [id number] Ordering Dr: Pattie Smith DO MAMMOGRAPHY - BILATERAL SCREENING REASON FOR EXAM: Female, 72 years old. Routine annual screening examination. PERTINENT HISTORY: Mother with breast cancer. Aunt with breast cancer. Status pos t prior bilateral excisional breast biopsies in 1998. TECHNIQUE: Digital bilateral breast tomosynthesis (3-D mammographic acquisition) in the CC and MLO projections. Synthesized 2-D images (C-View parvez nstruction from tomosynthesis acquisition) providing bilateral breast CC and MLO views. CAD: Full Field Digital Mammography with Computer Added Detection was performed. COMPARISON: August 15, 2016. _ FINDINGS: Breast Density: B - Scattered fibroglandular densities. There are no dominant masses or suspicious calcifications. There are scattered, typically benign-a ppearing calcifications. No other significant abnormalities are identified. HPBI/SCREENING MAMM (CAD), BILAT IMPRESSION: Stable bilateral screen ing mammogram. Yearly follow-up mammogram recommended. (A) ASSESSMENT CATEGORY: BIRADS Category 2: Benign. A letter regarding these results will be sent to the marco ent by the facility within 30 days. Approximately 10% of breast cancers are not detected by mammography. A normal mammogram should not delay biopsy of a clinically suspicious abnormality. [id number] Elec tronically Signed: Armen Smith MD at 12:16 EST , Service support , CC: Nelia Smith DO Law Instructor: Signed 22-Sep-2017 SCREENING MAMM (CAD), BILAT Result: Comments: See Note; NOTES: [facility] Imaging Services [address] [place] [address] SCREENING MAMM (CAD), BILAT MR#: [id number] Acct: [id number] Name: LEYLA RIOJAS Rep #: [id number] : 1945 F 72 From: Armen Smith MD PCP: Nelia Smith DO Status: REG CLI Study: SCREENING MAMM (CAD), BILAT Date of Exam: 09/22/17 Exam# [id number] Ordering Dr: Pattie Smith DO MAMMOGRAPHY - BILATERAL SCREENING REASON FOR EXAM: Female, 72 years old. Routine annual screening examination. PERTINENT HISTORY: Mother with breast cancer. Aunt with breast cancer. Status pos t prior bilateral excisional breast biopsies in 1998. TECHNIQUE: Digital bilateral breast tomosynthesis (3-D mammographic acquisition) in the CC and MLO projections. Synthesized 2-D images (C-View parvez nstruction from tomosynthesis acquisition) providing bilateral breast CC and MLO views. CAD: Full Field Digital Mammography with Computer Added Detection was performed. COMPARISON: August 15, 2016. _ FINDINGS: Breast Density: B - Scattered fibroglandular densities. There are no dominant masses or suspicious calcifications. There are scattered, typically benign-a ppearing calcifications. No other significant abnormalities are identified. HPBI/SCREENING MAMM (CAD), BILAT IMPRESSION: Stable bilateral screen ing mammogram. Yearly follow-up mammogram recommended. (A) ASSESSMENT CATEGORY: BIRADS Category 2: Benign. A letter regarding these results will be sent to the marco ent by the facility within 30 days. Approximately 10% of breast cancers are not detected by mammography. A normal mammogram should not delay biopsy of a clinically suspicious abnormality. [id number] Elec tronically Signed: Armen Smith MD at 12:16 EST , Service support , CC: Nelia Smith DO Law Instructor: Signed 24-Aug-2017 CTA Chest W/WO Contrast Result: Comments: See Note; NOTES: [facility] Imaging Services [address] [place] [address] CTA Chest W/WO Contrast MR#: [id number] Acct: [id number] Name: LEYLA RIOJAS Rep #: [id number] : 1945 F 71 From: Mario Ohara MD PCP: Nelia Smith DO Status: REG CLI Study: CTA Chest W/WO Contrast Date of Exam: 08/24/17 Exam# [id number] Ordering Dr: Nelia Smith DO UDY: CTA CHEST REASON FOR EXAM: Female, 71 years old. Thoracic aortic dissection RADIATION DOSAGE (If Supplied By Facility): CTDIvol = ( 12.62 ) mGy, DLP = ( 438.74 ) mGycm TECHNIQUE: The examination was performed with the intravenous administration of 100 ml of Isovue 300 contrast material. Post-processing of the angiographic images was performed, with multiplanar reformation and 3D reconstruction . Individualized dose optimization techniques were used for this CT. COMPARISON: 01/25/2015 FINDINGS: There is a stable calcified granuloma in the right lower lobe . There are no new or suspicious pulmonary nodules. There are no pulmonary infiltrates or pleural effusions. There are no filling defects within the pulmonary arteries to suggest pulmonary embolus. Ag ain noted is a patent stent in the descending thoracic aorta. There is no evidence of endoleak. 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 This is decreased i n size when compared with the prior exam. There are stable mural thrombus within the lumen of the aneurysm. There is no thoracic aortic dissection. The heart and pericardium are within normal limits. There are calcified mediastinal and hilar lymph nodes, consistent with prior granulomatous disease. Images through the upper abdomen demonstrate hepatic and splenic granulomata. There are no destructi ve osseous lesions. 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 No evidence of pulmonary embolus. Evidence of prior granulomatous disease. Electronically Signed: Jus Ohara, at 19:15 EST Tel , Service support , CC: FLAVIA PATEL; Nelia Smith DO Law Instructor: Signed 25-May-2017 OT D/C of Non Returning Pt Result: Comments: See Note; NOTES: [facility] Occupational Therapy [facility] [place] [id number] Fax REHABILITATION SERVICES DIS CHARGE SUMMARY MR#: [id number] Acct: [id number] Name: LEYLA RIOJAS Rep #: [id number] : 1945 71 From: Keysha nAderson Referring DrMarifer: Jb Yepez DO Status: REG RCR Eval Date: har Date: HP - Discharge Summary - Patient Information LEYLA RIOJAS was seen in my office for initial evaluation on 03/17/17. The following Plan of Care was established for this patient: Initial Frequency: 1-2x /Week Initial Duration: 2 week follow up Plan: Pt. is to schedule follow-up appointment ot ensure proper fit of brace and to ensure skin integrity. After next appointment she bandar l be d/c'd. - Anticipated Interventions Anticipated Interventions: A/AAROM/PROM, Orthoses, Joint Protection/Energy Conservation, Ergonomic Education, ADL Training, Caregiver Training, Home Program This patient was last seen in our office 03/30/17. Pertinent comments regarding their Occupational therapy will appear below: Pt. seen 2 times. She was made splint and was to schedule follow-up splint appo intment to ensure proper fit. No appointment was made for follow up and she will be d/c'd at this time. Pt. measurements taken upon last appointment including the following: benefits manager R 37, L 41, lateral R 8 , L 12, 3 jaw R 5, L 6, and tip pinch R 5, L 5. At this point I will be discontinuing this patient from occupational therapy. I would be happy to see this patient again in the future if found appropri ate by the physician. Thank you! Keysha Anderson <Electronically signed by Keysha Anderson > 05/25/17 0829 CC: Nelia Smith DO; Jb Yepez DO KMB Signed 16-Apr-2017 Emergency Department Summary Result: Comments: See Note; NOTES: [facility] Medical Records Department [address] [place] [address] Emergency Department Summary 04/16/17 0216 MR#: [id number] Acct: [id number] Name: LEYLA RIOJAS Rep #: [id number] : 1945 71 From: Eugenia Armstrong MD PCP: Nelia Smith DO Status: DEP ER - ER Visit Summary Date of Service: 04/16/17 Chief Complaint: Fall History of P resent Illness: The patient is a 71 F tripped on a sidewalk this morning and fell. She has abrasions noted to her face, bilateral hands, and left knee. She is complaining of pain along the left lateral ribs. 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 She does not take anticoagulants. She has had significant headache. Physical Examination: Vital signs are significant for a blood pressure of 161/102. Head neck examination reveals some abrasions on the left nondenominational. Pupils are equal and reactive. No C-spine tenderness is noted. Heart is regular rate and rhythm. Lungs are clear with good air movement throughout. She has reproducible tenderness in the left lateral ribs. No crepitus is noted. Abdomen is soft and nontender. Extremity examination was abrasions and ecchym osis to the bilateral hands. There is a small abrasion on the left knee. She has full range of motion throughout. Test Results: Left hand x-ray shows an acute nondisplaced fracture of the left radial s tyloid. Right hand x-ray is unremarkable. CT head shows no acute intracranial abnormalities. CT the chest shows no rib fractures. Stent graft is in good position. Emergency Department Course and Treatm ent: Patient declined pain medication here. She was given a tetanus update. Treatment Plan: Velcro wrist splint is placed on the left wrist. Patient will follow up with primary care physician. Disposi tion: Home Impression: 1. Mechanical fall 2. Nondisplaced left radial styloid fracture 3. Left rib contusion ED Disposition - Plan for ED Patient: Disposition: Home or Assisted Living Chief Complain t: Fall Instructions: ED Mechanical Fall, ED Fx Wrist General, ED Splint Care Velcro Referrals: Nelia Smith DO [Primary Care Provider] - 1 Week What to do if you have Problems For any increased pain, shortness of breath, bleeding, nausea or vomiting, chest pain, or any unexpected problems, contact your Primary Care Provider. Call [facility] ([phone]) or report to the closest Emer[facility] n[facility] Room. Call 911 if necessary. 04/16/17 0218 <Electronically signed by Eugenia Armstrong MD> Date Eugenia Armstrong MD Cosigner Signatu re (If Indicated): Date CC: Nelia Smith DO 15-Apr-2017 Discharge Instruction Result: Comments: See Note; NOTES: [facility] Medical Records Department [address] [place] [address] Discharge Instruction 04/15/172026 MR#: [id number] Acct: [id number] Name: LEYLA THOMPSON Rep #: [id number] : 1945 71 From: Eugenia Armstrong MD PCP: Nelia Smith DO Status: REG ER ED Disposition - Plan for ED Patient: Disposition: Home or Assisted Living Chief Compla int: Fall Instructions: ED Mechanical Fall, ED Fx Wrist General, ED Splint Care Velcro Referrals: Nelia Smith DO [Primary Care Provider] - 1 Week What to do if you have Problems For any increas ed pain, shortness of breath, bleeding, nausea or vomiting, chest pain, or any unexpected problems, contact your Primary Care Provider. Call [facility] ([phone]) or report to the closest [facility] Room. Call 911 if necessary. 04/15/172027 <Electronically signed by Eugenia Armstrong MD> Date Eugenia Powerignmacrina castillo (If Indicated): Date CC: Nelia Smith DO 15-Apr-2017 Brain/Head without Contrast Result: Comments: See Note; NOTES: [facility] Imaging Services [address] [place] [address] [address] 4d Brain/Head without Contrast MR#: [id number] Acct: [id number] Name: Nelly RIOJAS BERNICE Licha Rep #: [id number] : 1945 F 71 From: Eugenia Pabon MD PCP: Nelia Smith DO Status: REG ER Study: Brain/Head without Contrast Date of Exam: 04/15/17 Exam# [id number] Ordering Dr: Eugenia Armstrong MD STUDY: CT BRAIN WITHOUT CONTRAST REASON FOR EXAM: Female, 71 years old. Head injury RADIATION DOSAGE (If Supplied By Facility): CTDIvol = ( 44.99 ) mGy, DLP = ( 779.24 ) mGycm TECHNIQ UE: Transaxial CT imaging of the brain was performed without administration of intravenous contrast material. Individualized dose optimization techniques were used for this CT. COMPARISON: None. FINDINGS: Normal soft tissue structures. Normal calvarium. Normal size ventricles and extra-axial spaces for the patient's age. There are areas of decreased attenuation within the white matter tracts of the supratentorial brain. Normal basal ganglia and thalami. Normal brainstem. Normal cerebellum. There is no intracranial hemorrhage. There are no findings of an acute ischemic infarction. Normal visualized paranasal sinuses. CT/Brain/Head without Contrast IMPRESSION: No acute intracranial abnormalities. Ther e are mild age-related white matter findings. Electronically Signed: Eugenia Pabon MD at 18:55 EDT Tel [phone], Service support , CC: Eugenia darby MD; Nelia Smith DO Law Instructor: Signed 15-Apr-2017 Chest without Contrast Result: Comments: See Note; NOTES: [facility] Imaging Services [address] [place] [address] Verdana 4d Chest without Contrast MR#: [id number] Acct: [id number] Name: LEYLA RIOJAS Rep #: [id number] : 1945 F 71 From: Eugenia Pabon MD PCP: Nelia Smith DO Status: [facility] ER Study: Chest without Contrast Date of Exam: 04/15/17 Exam# [id number] Ordering Dr: Eugenia Armstrong MD STUDY: CT CHEST WITHOUT CONTRAST REASON FOR EXAM: Female, 71 years old. Pain after fall RADIATION DOSAGE (If Supplied By Facility): CTDIvol = ( 17.66 ) mGy, DLP = ( 692.78 ) mGycm TECHNIQUE: Tr ansaxial imaging was performed without the administration of intravenous contrast material. Multiplanar coronal and sagittal images were reformatted. Individualized dose optimization techniques were us ed for this CT. COMPARISON: CTA chest dated January 25, 2015 FINDINGS: There is biapical scarring. There are stable small areas of scarring in the periphery of both lungs. There is a stable calcified granuloma in the periphery of the right lower lobe. There is minimal atelectasis in both lower lobes. There is no demonstrated pleural abnormality. Normal heart and p ericardium. Normal mediastinum. There are calcified lymph nodes in the right hilum. Normal unenhanced pulmonary arteries. There is a stent graft in the distal descending thoracic aorta. There is dilata tion of the aorta above the stent graft measuring up to 3.8 cm in diameter. This previously measured up to 3.1 cm in diameter. There are moderate degenerative changes in the spine. No fractures are see n. There are calcified granulomas scattered in the liver and spleen. 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 There is a 2 mm nonobstructing stone in the lower pole of the right kidney. __ CT/Chest without Contrast IMPRESSION: No acute abnormalities are seen in the chest. There are stable chronic findings throughout the lungs. There is no pleural effusion or significant lymphadenopathy. A stent graft is present in the descending thoracic aorta. There is mild dilatation of the aorta above the stent graft which is minimally increase d from the prior study. Electronically Signed: Eugenia Pabon MD at 19:26 EDT Tel [phone], Service support , CC: Eugenia Armstrong MD; Nelia Smith DO Law Instructor: Signed 15-Apr-2017 Hand Min 3 Views Result: Comments: See Note; NOTES: [facility] Imaging Services [address] [place] [address] Verdana 4d Hand Min 3 Views MR#: [id number] Acct: [id number] Name: LEYLA RIOJAS Rep #: [id number] : 1945 F 71 From: Eugenia Pabon MD PCP: Nelia Smith DO Status: [facility] ER Study: Hand Min 3 Views Date of Exam: 04/15/17 Exam# [id number] Ordering Dr: Eugenia Armstrong MD STUDY: X-RAY - LEFT HAND REASON FOR EXAM: Female, 71 years old. Injury and pain TECHNIQUE: Three view(s) of the hand. COMPARISON: None. FINDINGS: There is a lucency in the radial styloid. Normal distal radioulnar joint. Normal visualized carpal bones. Normal carpal articulations Normal carpometacarpal articulation of the thumb. Normal second through fifth carpometac arpal joints. Normal metacarpi. Normal metacarpophalangeal joint of the thumb. 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 Normal pr oximal and distal phalanges of the thumb. Normal metacarpophalangeal joints of the second through fifth fingers. There is diffuse articular joint space narrowing of the proximal and distal interphalang eal joints of the second through fifth fingers, but without erosive changes or periarticular soft tissue swelling. Normal phalanges of the second through fifth fingers. There is mild soft tissue swelli ng. RAD/Hand Min 3 Views IMPRESSION: Acute nondisplaced fracture in the left radial styloid. Electronically Signed: Eugenia Pabon MD at 19:09 EDT Tel [phone], Service support , CC: Eugenia Armstrong MD; Nelia Smith DO Law Instructor: Signed 15-Apr-2017 Hand Min 3 Views Result: Comments: See Note; NOTES: [facility] Imaging Services [address] [place] [id number] Vershane 4d Hand Min 3 Views MR#: [id number] Acct: [id number] Name: LEYLA RIOJAS Rep #: [id number] : 1945 F 71 From: Eugenia Pabon MD PCP: Nelia Smith DO Status: REG ER Study: Hand Min 3 Views Date of Exam: 04/15/17 Exam# [id number] Ordering Dr: Eugenia Armstrong MD STUDY: X-RAY - RIGHT HAND REASON FOR EXAM: Female, 71 years old. Injury and pain TECHNIQUE: Three view(s) of the hand. COMPARISON: None. FINDINGS: Normal radiocarpal ar ticulation. Normal distal radioulnar joint. Normal visualized carpal bones. Normal carpal articulations There is degenerative arthrosis of the carpometacarpal articulation of the thumb with lateral zavaleta bluxation of the first metacarpus. Normal second through fifth carpometacarpal joints. Normal metacarpi. Normal metacarpophalangeal joint of the thumb. There is degenerative arthrosis of the interphal angeal joint of the thumb with articular joint space narrowing. Normal proximal and distal phalanges of the thumb. Normal metacarpophalangeal joints of the second through fifth fingers. There is diffus e articular joint space narrowing of the proximal and distal interphalangeal joints of the second through fifth fingers, but without erosive changes or periarticular soft tissue swelling. Normal phalang es of the second through fifth fingers. The soft tissue structures are unremarkable. RAD/Hand Min 3 Views IMPRESSION: No acute abnormalities are seen in the right hand. Electronically Signed: Eugenia Pabon MD at 19:14 EDT Tel [phone], Service support , CC: Eugenia Armstrong MD; Nelia Smith DO Law Instructor: Signed 27-Mar-2017 OT General Evaluation Result: Comments: See Note; NOTES: [facility] Occupational Therapy [facility] [address] [place] [address]. 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 Date of Evaluation: 03/17/17 Occupational Therapist: Keysha Anderson - Subjective Subjective: Pt.Leyla, noted that she has increased pain in L thumb although R hand dominant. SHe was recievin g PT at [facility] prior and noted it only aggrevated symptoms. - Pain Left Wrist 6 Pain Intensity Range: 8 - ROM ROM Comments: ROM assessment to be completed at later da te as computer crashed and values were lost. - Strength Lpn Or Medical Assistant: R L Lateral Pinch: R L Tripod Pinch: R L Tip-to-Tip Pinch: R L Strength Comments: Strength assessment to be completed at later date as comp uter crashed and values were lost. - DASH-Disabilities of Arm, Shoulder AND Hand DASH Sum: 45 - Goals Goal:: Pt. to be mod I to understand and implement Jt protection and energy conservation technique s 4/5 [id number]% of the time to increase (I) and decrease pain by time of d/c. Goal:: Pt. to demo understanding and correct don/doff cycle of L thumb spica splint to decrease pain and increase (I) for 80 % of opportunities to promote (I) in ADL/IADLS by time of d/c. - Rehabilitation General Assessment: Pt.Leyla, is s/p OA of L CMC area. Values of ROM and strength were lost secondary to computer crash ing but WFL upon evaluation. She was evalaed for CMC thumb spica and is to return in two weeks for spint check in which measurements will be retaken. Rehabilitation Potential: Good - Anticipated Interv entions Anticipated Interventions: A/AAROM/PROM, Orthoses, Joint Protection/Energy Conservation, Ergonomic Education, ADL Training, Caregiver Training, Home Program - Visit Plan Frequency: 1-2x /Week D uration: 2 week follow up General Plan: Seen for splint fabrication only. She is to return in 1-2 weeks for splint adjustment. TEXT: Thank you for the opportunity to evaluate your patient. For [facility] and Medicare HMO plans, please review the plan of care and approve it. It will need to be FAXED BACK to us at [phone] for Medicare purposes. Please let me know if there are questions or conc erns regarding this plan of care. Physician Signature: Date: <Electronically signed by Keysha Anderson > 03/27/17 1653 CC: Nelia Smith DO; Jb Yepez DO KMB Signed For Medicare only, by signing this I certify the plan of care. Physicians Signature Date 05-Feb-2017 NCS and/or EMG Patient Result: Comments: See Note; NOTES: [facility] Pulmonary Services/Neurology [address] [place] [address] NCS and/or EMG Patient MR#: [id number] Acct: [id number] Name: MADDIELEYLA Licha Rep #: [id number] : 1945 71 From: Anuel Day Referring Dr: Jb Yepez DO Status: REG CLI Ordering Dr: Jb Yepez DO Date: 02/04/17 Location: [facility] Sex: F C DATE OF SERVICE: 02/04 REFERRING BY: Dr. Yepez. HISTORY OF PRESENT ILLNESS: The patient is a 71-year-old female with pain, numbness and tingling in both hands. ELECTRODIAGNOSTIC FINDINGS: Mild slowing of the left mo re than the right ulnar sensory wrist latencies. No ulnar motor slowing or amplitude loss is noted, however. No significant median sensory or motor slowing is noted and normal radial sensory studies tod ay. The EMG did not reveal any membrane irritability or motor unit changes in areas tested, both arms. 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 This is based on th e ulnar sensory slowing at the wrist. However, the patient is not describing any significant clinical symptoms referred to the ulnar territory, so this is more of an electrical incidental finding. No ev idence today of carpal tunnel syndrome, polyneuropathy, cervical root problem or brachial plexus lesion. Consider wrist and hand degenerative changes, tendonitis, and other causes of pain and paresthes ias in the absence of significant carpal tunnel syndrome. Some individuals have early mild carpal tunnel syndrome with negative testing i.e. false negative, which occurs less than 5% of the time with te sting. She will follow up with Dr. Yepez for further review. Thank you for this referral. Anuel Day MD T: NTS JOB: [id number] 02/05/172035 <Electronically signed by Anuel Day > Date Anuel Day CC: Nelia Smith DO; ANUEL DAY; Jb Yepez DO Date Dictated: 02/04/17903 Date Transcribed: 02/04/17903 Law Instructor: Signed 31-Dec-2016 Venous Duplex Upper Extremity Result: Comments: See Note; NOTES: [facility] Cardiovascular Services [address] [place] [address] Venous Duplex US, Unilateral 12/30/16 1328 MR#: [id number] Acct: [id number] Name: Keith CURRANMARY ELLENLEYLA CAMARILLO Rep #: [id number] : 1945 71 From: Jose Pardo MD Attending Dr: Jb Yepez DO Status: REG CLI Ordering Dr: Jb Yepez DO Date: 12/30/16 Location: [facility] Sex: F C Admitte d: Reason For Study: pain Left Proximal Left jugular vein is spontaneous, widely patent, phasic, with no intraluminal echogenicity noted. Left subclavian vein is spontaneous, widely patent, phasic , with no intraluminal echogenicity noted. Left Arm Left axillary vein is spontaneous, patent, phasic, competent, compressible and demonstrates augmentation. Left brachial vein is compressible. Left cep halic vein is compressible. Left basilic vein is compressible. Left Lower Arm Left radial vein is compressible. Left ulnar vein is compressible. Prelim to Dr. Yepez. < Interpretation Summary D eep veins of the left upper extremity are patent and compressible segmentally. There is no evidence of deep vein thrombosis. The superficial veins of the left upper extremity, the basilic and cephalic v eins, are patent and compressible. There is no evidence of left upper extremity superficial thrombophlebitis involving the veins imaged. Ordering Physician: Jb Yepez Performed By: Robb Reina RVT 12/31/16 0634 Date ____ Jose Pardo MD CC: Nelia Smith DO; Jb Yepez DO Date Dictated: 12/30/16 1328 Date Transcribed: 12/31/16 0634 Law Instructor: Signed 20-Oct-2016 Chest PA and Lateral Result: Comments: See Note; NOTES: [facility] Imaging Services [address] [place] [address] Verdana 4d Chest PA and Lateral MR#: [id number] Acct: [id number] Name: LEYLA RIOJAS Rep #: [id number] : 1945 F 71 From: Zander Newell MD PCP: Nelia Smith DO Status: REG CLI Study: Chest PA and Lateral Date of Exam: 10/20/16 Exam# [id number] Ordering Dr: Angle Smith DO STUDY: X-RAY CHEST REASON FOR EXAM: Female, 71 years old. Cough and congestion x2 weeks TECHNIQUE: PA and lateral views of the chest. COMPARISON: 01/25/2015 FINDINGS: Note is made of an apparent endoluminal stent graft traversing the majority of the descending thoracic aorta, unchanged. The lungs are clear and expanded. Stability is seen on a calcified gr anuloma in the peripheral right lower lobe. There is no demonstrated pleural abnormality. Normal size heart. Normal mediastinum and cheli. Normal visualized pulmonary arteries. There is atherosclerotic calcification of the aortic arch . There is demineralization of the osseous structures. The visualized osseous structures are intact. There is no demonstrated abnormality of the visualized soft tissue structures of the upper abdomen. RAD/Chest PA and Lateral IMPRESSION: No acute cardiopulmonary disease is demonstrated, stable appearance of the chest with findings of old granulomatous disease again noted. Electronically Signed: Vazquez Newell MD at 3:52 EST Tel , Service support [phone], CC: Nelia Smith DO Law Instructor: Signed 15-Aug-2016 Bilat Scrn Digital AND CAD Result: Comments: See Note; NOTES: [facility] Imaging Services [address] [place] [address] Verdana 4d Bilat Scrn Digital AND CAD MR#: [id number] Acct: [id number] Name: PRISCA RIOJAS NOELJoselito Licha Rep #: [id number] : 1945 F 70 From: Lazaro Abrams MD PCP: Nelia Smith DO Status: REG CLI Study: Bilat Scrn Digital AND CAD Date of Exam: 08/15/16 Exam# [id number] Ordering Dr: Nelia Hernandez DO MAMMOGRAPHY - BILATERAL SCREENING REASON FOR EXAM: Female, 70 years old. Routine annual screening examination. PERTINENT HISTORY: Mother with breast cancer. Aunt with breast cancer. History of prior bilateral excisional breast biopsies. TECHNIQUE: Digital bilateral breast katelyn (3D mammographic acquisition) in the CC and MLO projections. 2-D mediolateral oblique (MLO) and cranioca udad (CC) views of both breasts were obtained. CAD: Full Field Digital Mammography with Computer Added Detection was performed. COMPARISON: Comparison is made with prior examination dated August 14, 2015 and June 22, 2014. FINDINGS: Breast Composition: There are scattered areas of fibroglandular density. There are no dominant masses or suspicious calcifica tions. No other significant abnormalities are identified. There has been no significant change since the prior study. HPBI/Bilat Scrn Digital AN D CAD IMPRESSION: Stable bilateral screening mammogram. Yearly follow-up mammogram recommended. (A) ASSESSMENT CATEGORY: BIRADS Category 1: Negative. A letter regar ding these results will be sent to the patient by the facility within 30 days. Approximately 10% of breast cancers are not detected by mammography. A normal mammogram should not delay biopsy of a clini isabel suspicious abnormality. [id number] Electronically Signed: Lazaro Abrams MD at 9:44 EST Tel [phone], Service support [phone], CC: Nelia Smith DO Law Instructor: Signed 22-Apr-2016 Venous Duplex Upper Extremity Result: Comments: See Note; NOTES: [facility] Cardiovascular Services [address] [place] [address] Venous Duplex US - Orlin Extrem 04/22/16 1401 MR#: [id number] Acct: [id number] Name: LEYLA RIOJAS Rep #: [id number] : 1945 70 From: Jose Pardo MD Attending Dr: Nelia Smith DO Status: REG CLI Ordering Dr: Nelia Smith DO Date: 04/22/16 Location: [facility] Sex: F C Admitted: Reason For Study: Hx of SVT BUE Right Proximal Left Proximal Right jugular vein is spontaneous, widely Left jugular vein is spontaneous, widely patent, phasic, with n o intraluminal patent, phasic, with no intraluminal echogenicity noted. echogenicity noted. Right subclavian vein is spontaneous, widely Left subclavian vein is spontaneous, widely patent, phasic, w ith no intraluminal patent, phasic, with no intraluminal echogenicity noted. echogenicity noted. Right Lower Arm Left Arm Right radial vein is compressible. Left axillary vein is spontaneous, patent , Right ulnar vein is compressible. phasic, competent, compressible and Right Arm demonstrates augmentation. Right axillary vein is spontaneous, patent, Left brachial vein is compressible. phasic, c ompetent, compressible and Bright intraluminal echoes consistent with demonstrates augmentation. chronic SVT (small area) and chronic vein Right brachial vein is compressible. wall thickening noted in Lt CephV. Right cephalic vein is compressible. Bright intraluminal echoes consistent with Bright intraluminal echoes consistent with chronic SVT (small area) and chronic vein chronic SVT (small area) and chronic vein wall thickening noted in Lt BasilicV. wall thickening noted in Rt BasilicV. Left Lower Arm Left radial vein is compressible. Left ulnar vein is compressible. < Pat ient Safety Prelim sent to Dr. Smith. Interpretation Summary Deep veins of the upper extremities are bilaterally patent and compressible segmentally. There is no evidence of deep vein thrombosis o n either side. Chronic superficial thrombophlebitis is noted in a short segment of the right basilic vein. The right cephalic vein is patent and compressible. Chronic superficial thrombophlebitis an d chronic vein wall thickening are noted in the left basilic and cephalic veins. Ordering Phy sician: eNlia Smith Referring Physician: Nelia Smith Performed By: Lorenza Almonte, RDCS, RVT 04/22/16 1631 Date ___ Jose Pardo MD CC: Nelia Smith DO Date Dictated: 04/22/16 1401 Date Transcribed: 04/22/16 1631 Law Instructor: Signed 10-Jan-2016 Venous Duplex Upper Extremity Result: Comments: See Note; NOTES: [facility] Cardiovascular Services [address] [place] [address] Venous Duplex - Orlin Extrem 01/10/16 1353 MR#: [id number] Acct: [id number] Name: LEYLA RIOJAS Rep #: [id number] : 1945 70 From: Jose Pardo MD Attending Dr: Nelia Smith DO Status: REG CLI Ordering Dr: Nelia Smith DO Date: 01/10/16 Location: [facility] Sex: F C Admitted: Version 2 Reason For Study: F/U BUE SVT Right Proximal Left Proximal Right jugular vein is spontaneous, widely Left jugular vein is spontaneous, widely patent, phas ic, with no intraluminal patent, phasic, with no intraluminal echogenicity noted. echogenicity noted. Right subclavian vein is spontaneous, widely Left subclavian vein is spontaneous, widely patent, phasic, with no intraluminal patent, phasic, with no intraluminal echogenicity noted. echogenicity noted. Right Lower Arm Left Arm Right radial vein is compressible. Left axillary vein is spontaneou s, patent, Right ulnar vein is compressible. phasic, competent, compressible and Right Arm demonstrates augmentation. Right axillary vein is spontaneous, patent, Left brachial vein is compressible. phasic, competent, compressible and Cephalic vein is non-compressible from wrist demonstrates augmentation. to mid upper arm. Right brachial vein is compressible. Basilic vein is non-compressible fr om Right cephalic vein is compressible. axillary/basilic junction to antecubital Basilic vein and median cubital vein are non space. Multiple thrombosed branches noted. -compressible. Does not exten d into deep Thrombus does not extend into deep system. system. Left Lower Arm Left radial vein is compressible. Left ulnar vein is compressible. < Interpretation Summary Deep veins of the upper extremities are bilaterally patent and compressible segmentally. There is no evidence of deep vein thrombosis on either side. Acute superficial thrombophlebitis is noted in the right basili c vein. Acute superficial thrombophlebitis is noted in the right median cubital vein. The right cephalic vein is patent and compressible. Acute superficial thrombophlebitis is noted in the left basi lic vein from the axillary-basilic junction to the left antecubital space. Acute superficial thrombophlebitis is noted involving multiple superficial veins of the left upper extremity. Acute superfi cial thrombophlebitis is noted in the left cephalic vein from the wrist to the mid-upper arm. There has been no significant change from recent prior studies. Ordering Physician: Nelia Smith Performed By: Ethel Calles RVT 09:1 9 PM 01/10/162119 Date Jose Pardo MD CC: Nelia Smith DO Date Dictated: 01/10/16 1353 Date Transcribed: 01/10/162117 Law Instructor: Signed 25-Dec-2015 Venous Duplex Upper Extremity Result: Comments: See Note; NOTES: [facility] Cardiovascular Services [address] [address] Venous Duplex US, Unilateral 12/25/15 0857 MR#: [id number] Acct: [id number] Name: LEYLA RIOJAS Rep #: [id number] : 1945 70 From: Jose Pardo MD Attending Dr: Nelia Smith DO Status: REG CLI Ordering Dr: eNlia Smith DO Date: 12/25/15 Location: [facility] Sex: F C Admitted: Reason For Study: pain, R60.0,I82.622 Left Proximal Left jugular vein is spontaneous, widely patent, phasic, with no intraluminal echogenicity noted. Left subcl rosemary vein is spontaneous, widely patent, phasic, with no intraluminal echogenicity noted. Left Arm Left axillary vein is spontaneous, patent, phasic, competent, compressible and demonstrat es augmentation. Left brachial vein is compressible. Cephalic V is dilated and noncompressible from the wrist to mid upper arm. Basilic V is dilated and noncompressible from the axillary/bas ilic junction to antecubital space. Does not extend into the deep system. Multiple thrombosed superficial branches. No significant change from previous study done 12/20/2015. Left Lower Arm Left radial vein is compressible. Left ulnar vein is compressible. Prelim called to [facility] nurses line voicemail. < Interpretation Summary Deep veins of the left upper extremity are pat ent and compressible segmentally. There is no evidence of deep vein thrombosis. Acute superficial thrombophlebitis is noted in the left cephalic vein from the left wrist to the mid-upper arm. Acute s uperficial thrombophlebitis is noted in the left basilic vein extending from the left antecubital space to the basilic-axillary junction, but not extending into the deep venous system. Acute superfi cial thrombophlebitis is noted in multiple superficial venous branches in the left upper extremity. There has been no significant change since a prior study on 12/20/2015. Ordering Physician: Nelia Smith Performed By: Robb Reina RVT Electronically signed by: Jose Pardo MD on 01:20 PM 12/25/15 1320 Date Jose Pardo MD CC: Nelia Smith DO Date Dictated: 12/25/15 0857 Date Transcribed: 12/25/15 1320 Law Instructor: Signed 20-Dec-2015 Venous Duplex Upper Extremity Result: Comments: See Note; NOTES: [facility] Cardiovascular Services [address] [place] [address] Venous Duplex US, Unilateral 12/20/15 1319 MR#: [id number] Acct: [id number] Name: LEYLA RIOJAS Rep #: [id number] : 1945 70 From: Jose Pardo MD Attending Dr: Nelia Smith DO Status: REG CLI Ordering Dr: Nelia Smith DO Date: 12/20/15 Location: [facility] Sex: F C Admitted: Reason For Study: RUE pain Right Proximal Right jugular vein is spontaneous, widely patent, phasic, with no intraluminal echogenicity noted. Right subclavian vein is spontaneous, widely patent, phasic, with no intraluminal echogenicity noted. Right Lower Arm Right radial vein is compressible. Right ulnar vein is compressible. Right Arm Right axillary vein is spontaneous, patent, phasic, competent, compressible and demonstrates augmentation. Right brachial vein is compressible. Right cephalic vein is compressible. Rt Basilic vein and Median cubital vei n are dilated and non-compressible. Thrombus does not extend into deep system. < Interpretation Summary Deep veins of the right upper extremity are patent and compressible segmentally. The re is no evidence of deep vein thrombosis. Acute superficial thrombophlebitis is noted in the right basilic vein, but does not extend into the deep venous system. Acute superficial thrombophlebitis i s noted in the right median cubital vein. The right cephalic vein is patent and compressible. Ordering Physician: Nelia Smith Performed By: Ethel Calles RVT 12/20/15 2259 Date Jose Pardo MD CC: Nelia Smith DO Date Dictated: 12/20/15 1319 Date Transcribed: 12/20/152258 Law Instructor: Signed 20-Dec-2015 Venous Duplex Upper Extremity Result: Comments: See Note; NOTES: [facility] Cardiovascular Services [address] [place] [address] Venous Duplex US, Unilateral 12/20/15 0901 MR#: [id number] Acct: [id number] Name: LEYLA RIOJAS Rep #: [id number] : 1945 70 From: Jose Pardo MD Attending Dr: Nelia Smith DO Status: REG CLI Ordering Dr: Nelia Smith DO Date: 12/20/15 Location: [facility] Sex: F C Admitted: Reason For Study: F/U LUE SVT Left Proximal Left jugular vein is spontaneous, widely patent, phasic, with no intraluminal echogenicity noted. Left subclavian ve in is spontaneous, widely patent, phasic, with no intraluminal echogenicity noted. Left Arm Left axillary vein is spontaneous, patent, phasic, competent, compressible and demonstrates augme ntation. Left brachial vein is compressible. Cephalic vein dilated and non- compressible from wrist to mid upper arm. Basilic vein dilated and non- compressible from level of axillary/basilic j unction to antecubital space. Does not extend into deep system. Multiple thrombosed superficial branches. Left Lower Arm Left radial vein is compressible. Left ulnar vein is compressible. No change from previous exam. < Interpretation Summary Deep veins of the left upper extremity are patent and compressible segmentally. There is no evidence of deep vein thrombosis. Acute s uperficial thrombophlebitis is noted in the left cephalic vein from the left wrist to the mid-upper arm. Acute superficial thrombophlebitis is noted in the left basilic vein extending from the left antecubital space to the basilic-axillary junction, but not extending into the deep venous system. Acute superficial thrombophlebitis is noted in multiple venous branches in the left upper extremity . There has been no significant change since a prior study on 12/18/2015. Ordering Physician: Nelia Smith Performed By: Ethel Calles RVT 12/20/152247 Date Jose Pardo MD CC: Nelia Smith DO Date Dictated: 12/20/15 0901 Date Transcribed: 12/20/152247 Law Instructor: Signed 18-Dec-2015 Venous Duplex Upper Extremity Result: Comments: See Note; NOTES: [facility] Cardiovascular Services [address] [facility] [place] [address] Venous Duplex US, Unilateral 12/18/15 0719 MR#: [id number] Acct: [id number] Name: LEYLA RIOJAS Rep #: [id number] : 1945 70 From: Jose Pardo MD Attending Dr: Nelia Smith DO Status: REG CLI Ordering Dr: Nelia Smith DO Date: 12/18/15 Location: [facility] Sex: F C Admitted: Reason For Study: LUE pain Left Proximal Left jugular vein is spontaneous, widely patent, phasic, with no intraluminal echogenicity noted. Left subclavian vein is spontaneous, widely patent, phasic, with no intraluminal echogenicity noted. Left Arm Left axillary vein is spontaneous, patent, phasic, competent, compressible and demonstrates augmenta tion. Left brachial vein is compressible. Lt Cephalic vein is dilated and non- compressible from wrist to mid upper arm Median cubital vein is dilated and non- compressible. Lt Basilic vein is dilated and non- compressible at level of but not extending into deep system. Multiple branches are dilated and non- compressible. < Interpretation Summary Deep veins of the left upper extremity are patent and compressible segmentally. There is no evidence of deep vein thrombosis. Acute superficial thrombophlebitis is noted in the left cephalic vein from the left wrist to the mid-upper arm. Acute superficial thrombophlebitis is noted in the left median cubital vein. Acute superficial thrombophlebitis is noted in the left basilic vein extending up to its junction with the deep venous system, but not extending into the deep venous system. Acute superficial thrombophlebitis is also noted in multiple venous branches in the left upper extremity. Ordering Physician: Nelia Smith Performed By: Ethel Calles RVT 12/18/152210 Date Jose Pardo MD CC: Nelia Luis REA Date Dictated: 12/18/15 0719 Date Transcribed: 12/18/152210 Law Instructor: Signed 07-Dec-2015 Abdomen/Pelvis W IV Cont ONLY Result: Comments: See Note; NOTES: [facility] Imaging Services [address] [place] [address] Verdana 4d Abdomen/Pelvis W IV Cont ONLY MR#: [id number] Acct: [id number] [facility] e: MAHOGANY RIOJASTY Licha Rep #: [id number] : 1945 F 70 From: Lazaro Abrams MD PCP: Nelia Smith DO Status: REG ER Study: Abdomen/Pelvis W IV Cont ONLY Date of Exam: 12/07/15 Exam# [id number]: Bart Denise MD STUDY: CT ABDOMEN AND PELVIS WITH CONTRAST REASON FOR EXAM: Female, 70 years old. Rectal bleeding. History of ulcerative colitis. RADIATION DOSAGE (If Supp lied By Facility): CTDIvol = ( 21.24 ) mGy, DLP = ( 1042.74 ) mGycm TECHNIQUE: Transaxial images were obtained from the dome of the diaphragm to the symphysis pubis without oral contrast. 100mL ml o f Isovue 370 contrast was administered. Sagittal and coronal images were reconstructed. COMPARISON: Comparison is made with prior study dated August 30, 2015. FINDINGS: Stable 6.6 mm calcified granuloma in the right lower lobe. Mild scarring in the posterior medial segment of the left lower lobe. The visualized portions of the heart are within normal limit s. There is decreased attenuation of the liver consistent with steatosis. Mild hepatomegaly. Normal gallbladder and extrahepatic biliary system. Normal spleen. Normal pancreas. Normal bilateral ad renal glands. Stable small right renal angiomyolipoma. Normal left kidney. There is a retroaortic left renal vein. Normal visualized stomach. Normal small intestine. There is diffuse edematous julia nges and thickening of the left hemicolon from the splenic flexure down to the rectum with increased markings in the surrounding fat. This is in keeping with colitis. The patient is status post append ectomy. Once again, there is evidence of an endoluminal stent in the distal thoracic and proximal abdominal aorta. Mural thrombus is seen. This is unchanged. Normal inferior vena cava. Normal retrop eritoneum. Small amount of air is seen within the urinary bladder. A colovesical fistula should be ruled out. There is absence of the uterus consistent with a prior hysterectomy. There is a small umbilical hernia containing fat. Normal osseous structures. IMPRESSION: Findings interval colitis of the left hemicolon with increased markings in the surroundi ng fat. Small amount of air is seen along the anterior aspect of the urinary bladder. A colovesical fistula should be ruled out if there was no [place] catheter manipulation. Electronically Signed: Lazaro Abrams MD at 9:28 EST Tel [phone], Service support [phone], CC: Nelia Smith DO; Bart Denise MD Law Instructor: Signed 30-Aug-2015 Abdomen/Pelvis WITH Contrast Result: Comments: See Note; NOTES: [facility] Imaging Services [address] [place] [address] Verdana 4d Abdomen/Pelvis WITH Contrast MR#: [id number] Acct: [id number] Name : LEYLA RIOJAS Licha Rep #: [id number] : 1945 F 70 From: Lazaro Abrams MD PCP: Nelia Smith DO Status: REG CLI Study: Abdomen/Pelvis WITH Contrast Date of Exam: 08/30/15 Exam# [id number]: Nelia Smith DO STUDY: CT ABDOMEN AND PELVIS WITH CONTRAST REASON FOR EXAM: Female, 70 years old. 3 month history of left lower quadrant pain. RADIATION DOSAGE (If Supplie d By Facility): CTDIvol = ( 18.22 ) mGy, DLP = ( 1693.44 ) mGycm TECHNIQUE: Transaxial images were obtained from the dome of the diaphragm to the symphysis pubis with oral contrast. 100ML ml of Isov ue 300 contrast was administered. Sagittal and coronal images were reconstructed. Delayed imaging was obtained as well. COMPARISON: Comparison is made with prior study dated October 09, 2014. FINDINGS: The 7 mm calcified granuloma is seen in the right lower lobe. Focal linear scarring is seen in the anterior aspect of the right pleural. The visualized port ions of the heart are within normal limits. There is decreased attenuation of the liver consistent with steatosis. Normal gallbladder and extrahepatic biliary system. There are multiple benign calci fied granulomata of the spleen. Normal pancreas. Normal bilateral adrenal glands. A 1 cm angiomyolipoma is seen along the posterior midportion of the right kidney. Normal left kidney. Normal visu alized stomach. Normal small intestine. There are multiple colonic diverticula consistent with diverticulosis. The patient is status post appendectomy. Since prior study, a covered aortic stent andrea t is seen in the distal thoracic and proximal abdominal aorta. The patient has a history of prior dissection. Small amount of thrombus is seen along the left lateral wall. Normal inferior vena cava. Normal retroperitoneum. Normal urinary bladder. There is absence of the uterus consistent with a prior hysterectomy. There is a small umbilical hernia containing fat. There are mild degenerative c hanges of the visualized lumbar spine. IMPRESSION: Status post aortic stent grafting of the distal thoracic and proximal abdominal aorta with small amount of mur al thrombus. Fatty infiltration of the liver. Sigmoid diverticulosis. Electronically Signed: Lazaro Abrams MD at 11:28 EST Tel [phone], Service support [phone], Fax CC: Nelia Smith DO Law Instructor: Signed 14-Aug-2015 Bilat Scrn Digital AND CAD Result: Comments: See Note; NOTES: [facility] Imaging Services [address] [place] [address] Verdana 4d Bilat Scrn Digital AND CAD MR#: [id number] Acct: [id number] Name: LEYLA RIOJAS Rep #: [id number] : 1945 F 69 From: Lazaro Abrams MD PCP: Nelia Smith DO Status: REG CLI Study: Bilat Scrn Digital AND CAD Date of Exam: 08/14/15 Exam# [id number] Ordering Dr: Nelia Smith DO MAMMOGRAPHY - BILATERAL SCREENING REASON FOR EXAM: Female, 69 years old. Routine annual screening examination. PERTINENT HISTORY: Mother with breast cancer. Au nt with breast cancer. TECHNIQUE: Digital examination. Mediolateral oblique (MLO) and craniocaudad (CC) views of both breasts were obtained. CAD: CAD was performed on this study. COMPARISON: Akin rison is made with prior study dated June 22, 2014 and August 10, 2013. FINDINGS: Breast Composition: There are scattered areas of fibroglandular density. There are no dominant masses or suspicious calcifications. No other significant abnormalities are identified. There has been no significant change since the prior study. IMPRESSION: Stable bilateral screening mammogram. Yearly follow- up recommended. (A) ASSESSMENT CATEGORY: BIRADS Category 1: Negative. A letter rega rding these results will be sent to the patient by the facility within 30 days. Approximately 10% of breast cancers are not detected by mammography. A normal mammogram should not delay biopsy of a c linically suspicious abnormality. Electronically Signed: Lazaro Abrams MD at 9:38 EST Tel [phone], Service support [phone], CC: Nelia Smith DO Law Instructor: Signed 14-Aug-2015 Dexa Bone Density Study (HP) Result: Comments: See Note; NOTES: [facility] Imaging Services [address] [place] [address] Verdajh 4d Dexa Bone Density Study () MR#: [id number] Acct: [id number] Name : LEYLA RIOJAS Rep #: [id number] : 1945 F 69 From: Lazaro Abrams MD PCP: Nelia Smith DO Status: REG CLI Study: Dexa Bone Density Study () Date of Exam: 08/14/15 Exam# [id number]: Nelia Smith DO STUDY: DUAL ENERGY X-RAY ABSORPTIOMETRY / DXA REASON FOR EXAM: Female, 69 years old. The patient is postmenopausal. Loss of height. TECHNIQUE: Bone Mineral Density (BMD) measurements of lumbar spine and bilateral hips were obtained. COMPARISON: Comparison is made with prior study dated August 10, 2013. FINDINGS: Lumbar Spine (L1-L4): g/cm2 (1.219) / T-score (0.2) / Z-score (1.9) Findings are suggestive of normal bone density with a low fracture risk. Left Femur Total: g/cm2 (1.051) / T-score (0.3) / Z-sco re (1.9) Left Femoral Neck: g/cm2 (0.960) / T-score (0.6) / Z-score (1.2) Right Femur Total: g/cm2 (0.991) / T-score (0.1) / Z-score (1.4) Right Femoral Neck: g/cm2 (0.908) / T-score (0.9) / Z-score (0.8) The T-Scores on the most recent prior examination were: Lumbar Spine (L1-L4): There has been improvement of bone density since the previous examination. Left Femur Total: which represents a worsening of 2.1%. Right Femur Total: which represents a worsening of 4.7%. IMPRESSION: The patient is considered normal as outlined below according to World He ath Organization (WHO) criteria with a low fracture risk. There has been worsening of bone density since the previous examination. Reference Information: The T -score is the number of standard deviations above or below the standard which is normal for young adults at their peak bone mineral density. The World Health Organization (WHO) interprets the T-scores as follows: Above -1 Normal bone density Between -1 and -2.5 Osteopenia Equal to / or below -2.5 Osteoporosis As a practical clinical guideline, osteopenia may be graded as follows: Mild -1 thr ough -1.5 Moderate -1.6 through -2.0 Severe -2.1 through -2.4 The Z-score is the number of standard deviations above or below age-matched controls. A Z- score of less than -1.5 would be considered a bnormal. References: 1. NIH Osteoporosis and Related Bone Diseases http://www.osteo.org 2. International Society for Clinical Densitometry http://www.iscd.org 3. National Osteoporosis Foundation ht tp://www.nof.org Electronically Signed: Lazaro Abrams MD at 15:21 EST Tel [phone], Service support [phone], CC: Nelia Smith DO Law Instructor: Signed 01-Jun-2015 Spirometry (41838) Result: 01-Jun-2015 ELECTROCARDIOGRAM, COMPLETE (ECG) (73101) Result: [MEASUREMENTS ANALYSIS] Date of Test: 06/01/2015 11:38:22; Heart Rate: 69; KS Interval: 126; QRS: 84; QT Interval: 388; Corrected QT Interval (QTc): 403; P Wave [place]: 43; QRS Wave [place]: 48; T Wave [place]: 38; Blood Pressure: 132/86 [ECG DIAGNOSTIC STATEMENTS] Date of Test: 06/01/2015 11:38:22; Summary: Sinus Rhythm WITHIN NORMAL LIMITS 05-Feb-2015 Knee 4 or More Views Result: Comments: See Note; NOTES: [facility] Imaging Services [address] [place] [address] Radiology Report MR#: [id number] Acct: [id number] Name: LEYLA RIOJAS Rep #: [id number] : 1945 F 69 From: Slick Byrd DO PCP: Nelia Smith DO Status: REG CLI Study: Knee 4 or More Views Date of Exam: 02/05/15 Exam# [id number] Ordering Dr: Nelia Smith DO ST UDY: X-RAY - RIGHT KNEE REASON FOR EXAM: Female, 69 years old. Lateral knee pain without trauma. TECHNIQUE: 4 view(s) of the knee. COMPARISON: None. FINDINGS : Normal visualized distal femur. Normal visualized proximal tibia and fibula. Normal proximal tibiofibular articulation. There is no acute fracture, dislocation or destructive osseous pathology. N ormal medial femorotibial compartment. Normal lateral femorotibial compartment. Normal patellofemoral articulation. There is no demonstrated joint effusion. The soft tissue structures are unremarkab le. IMPRESSION: Normal x-ray examination of the knee. Electronically Signed: Slick Byrd DO at 16:07 EDT Tel [phone], Service support [phone], RAD/Knee 4 or More Views IMPRESSION: Normal x-ray examination of the knee. Electronically Signed: Slick Byrd DO at 16:07 EDT Tel [phone], Service support [phone], CC: Nelia Smith DO Law Instructor: Signed 29-Jan-2015 12 Lead Electrocardiogram Result: Comments: See Note; NOTES: [facility] Cardiovascular Services [address] [place] [address] 12 Lead EKG 01/25/15 2309 MR#: [id number] Acct: [id number] Name: LEYLA RIOJAS Rep #: [id number] : 1945 69 From: Ceasar Wagner MD Attending Dr: Status: DEP ER Ordering Dr: Tanmay Michel MD Date: 01/25/15 Location: ED Sex: F C Admitted: Test Reason : CP Blood Pressure : / mmHG Vent. Rate : 088 BPM Atrial Rate : 088 BPM P- R Int : 134 ms QRS Dur : 064 ms QT Int : 346 ms P-R-T Axes : 083 062 056 degrees QTc Int : 418 ms Normal sinus rhythm Septal infarct , age undetermined Abnormal ECG Confirmed by BOOGIE GUNTER, CEASAR ([id number]), acquisition editor TARA SERRANO ([id number]) on 01/29/2015 1: 50:32 PM Referred By: MEHREEN Confirmed By:CEASAR WAGNER MD 01/29/15 1350 Date Ceasar Wagner MD CC: Nelia Smith DO Date Dictated: 01/25/152308 Date Transcribed: 01/25/152308 Law Instructor: Signed 26-Jan-2015 Discharge Instruction Result: Comments: See Note; NOTES: [facility] Medical Records Department [address] [place] [address] Discharge Instruction 01/26/15111 MR#: [id number] Acct: [id number] Name: LEYLA RIOJAS Rep #: [id number] : 1945 69 From: Tanmay Michel MD PCP: Nelia Smith DO Status: DEP ER ED Disposition - Plan for ED Patient: Disposition: Home Chief Complain t: Chest Pain Instructions: ED Chest Wall Strain Prescriptions: Hydrocodone Bitart/Apap 5-325 [[place] 5/325] 1 - 2 tablet PO Q4H PRN PRN #20 tablet PRN Reason: Pain Referrals: Nelia Smith DO [Primary Care Provider] - What to do if you have Problems For any increased pain, shortness of breath, bleeding, nausea or vomiting, chest pain, or any unexpected problems, contact your doctor. [facility] Doctors Registry ) or report to the closest Emergency Room. Call 911 if necessary. 01/26/15 0419 <Electronically signed by Tanmay Michel MD> Date _ Tanmay Michel MD Cosigner Signature (If Indicated): Date CC: Nelia Smith DO 26-Jan-2015 Emergency Department Summary Result: Comments: See Note; NOTES: [facility] Medical Records Department [address] [place] [address] Emergency Department Summary MR#: [id number] Acct: [id number] Name: LEYLA MENDIOLA Rep #: [id number] : 1945 69 From: Tanmay Michel MD PCP: Nelia Smith DO Status: [facility] ER DATE OF SERVICE: 01/25/2015 CHIEF COMPLAINT: Chest pain. MODE OF TRANSPORT: Private vehicle. HISTORY OF PRESENT ILLNESS: A 69-year-old female with right- sided chest wall pain for the last hour. She moved on the couch and she suddenly developed spasm in her right rib cage, is moderate severity, worse with movement of her body and bending and taking a deep breath. She has some mild shortness of breath only with deep breath. She took some Aleve. She has a history of hypertension on metoprolol. The patient has a history of thoracic aortic aneurysm status post mesh graft placed in November. She has been released ____, her followup is _ ___, that was done by Dr. Stacy mallory at [facility]. The aneurysm does extend into the lower abdominal region, but is mild in severity in that region only 3 x 2.8 cm. PHYSICAL EXAMINATION: VITAL SIGNS: Blood pressure 193/ 127, rest of vitals are within normal limits. CHEST: She has some tenderness to palpation in her right ribs laterally with range of motion; it significantly makes her pain worse. LUNGS: Clear. CARD IAC: Otherwise, normal. EMERGENCY DEPARTMENT TESTS: Chest x-ray shows nothing acute. CT of the chest shows nothing acute as well. Her mesh stent is patent. There is minimal intraluminal thrombus ou tside of the stent within the wall. There is no stent leakage. There is mild intraluminal thrombus peripheral to the stent extending for approximately 9 cm distally. No acute disease. EMERGENCY DE PARTMENT COURSE: EKG showed nothing acute. There is Q-waves in V1 and V2, unchanged from previous. CBC, chemistry normal. Troponin negative. The patient was given a dose of aspirin, given intravenou s morphine. She was given a dose of labetalol. On reevaluation, her pain is significantly better. She is resting comfortably. At this time, I think her pain is likely secondary to intercostal rib aleksandra n. I have a low suspicion for acute PE. Her CAT scan is negative. I have a low suspicion for acute coronary syndrome. She will follow up as an outpatient with her vascular surgeon, as well as her [facility] doctor. DISPOSITION: Home. IMPRESSION: Right chest pain, suspect intercostal spasms. Tanmay Michel MD T: NTS JOB: [id number] 01/26/15 0418 <Electronically signed by Anika Michel MD> Date Tanmay Michel MD CC: Nelia Smith DO Date Dictated: 01/26/15116 Date Transcribed: 01/26/15116 Law Instructor: Signed 25-Jan-2015 Chest 1 View (Portable) Result: Comments: See Note; NOTES: [facility] Imaging Services [address] [place] [address] Radiology Report MR#: [id number] Acct: [id number] Name: LEYLA RIOJAS Rep #: [id number] : 1945 F 69 From: Brown Lord PCP: Nelia Smith DO Status: DEP ER Study: Chest 1 View (Portable) Date of Exam: 01/26/15 Exam# [id number] Ordering Dr: Tanmay Michel MD STUDY: X-RAY CHEST REASON FOR EXAM: Female, 69 years old. Sudden onset chest pain. TECHNIQUE: AP portable chest. COMPARISON: October 09, 2014. CTA chest January 25, 2015. FINDINGS: The lungs are clear and expanded. There is no demonstrated pleural abnormality. Calcified right lower lobe lung nodule. No pneumothorax. Normal size heart. Normal mediastinum and cheli. Normal visualized pulmonary arteries. Aorta stent graft involving the descending thoracic aorta at a level beginning slightly inferior to the main pulmonary trunk. Normal visualized thoraci c spine. Normal visualized ribs, clavicles, and shoulders. There is no demonstrated abnormality of the visualized soft tissue structures of the upper abdomen. IMPRESSION: No acute cardiopulmonary disease. Aortic stent graft in its expected location. Old granulomatous disease. Electronically Signed: Brown Lord MD at 7:36 EDT Tel , Service support [phone], CC: Nelia Smith DO; Tanmay Michel MD Law Instructor: Signed 25-Jan-2015 CTA Chest W/WO Contrast Result: Comments: See Note; NOTES: [facility] Imaging Services [address] [place] [address] CAT Scan Report MR#: [id number] Acct: [id number] Name: LEYLA RIOJAS Rep #: [id number] : 1945 F 69 From: Brown Lord PCP: Nelia Smith DO Status: REG ER Study: CTA Chest W/WO Contrast Date of Exam: 01/25/15 Exam# [id number] Ordering Dr: Tanmay Michel MD S TUDY: CTA CHEST REASON FOR EXAM: Female, 69 years old. Sudden onset of chest pain. History of repair of aortic tear 12/01/2014.. RADIATION DOSAGE (If Supplied By Facility): CTDIvol = ( 13.08 ) mGy, D LP = ( 492.48 ) mGycm TECHNIQUE: The examination was performed with the intravenous administration of 75 ml of Isovue 370 contrast material. Post-processing of the angiographic images was performed , with multiplanar reformation and 3D reconstruction. COMPARISON: 10/09/2014. FINDINGS: Normal enhancement of the main pulmonary artery and right and left pul monary arteries. Normal enhancement of the bilateral peripheral pulmonary arteries. There is no demonstrated pulmonary embolism. Aortic stent graft involving an approximately 11 cm segment of the de scending thoracic aorta. The stent continues inferiorly involving the proximal abdominal aorta and the distal stent is only partially visualized on this study tailored for evaluation of the chest. The re is only very minimal intraluminal thrombus within the stent. No evidence of a stent leak. The distal descending thoracic aorta measures 4.6 x 4.8 cm as compared to the prior exam where it measured 4.0 x 3.8 cm. There is extensive intraluminal thrombus peripheral to the stent extending for an approximately 9 cm length within the wilton thoracic aortic aneurysm. There is no demonstrated aortic dissection. Normal heart and pericardium. 1.1 cm pretracheal lymph node unchanged. Calcified hilar lymph nodes. Normal visualized trachea and bronchi. The lungs are well expanded. Focal anterior right lower lobe subsegmental atelectasis or fibrosis. Normal pulmonary parenchyma. 1 cm densely calcified right lower lobe lung nodule. Normal pleura. No pneumothorax. Normal chest wall structu res. Normal osseous structures. Scattered punctate calcifications in the liver and spleen. IMPRESSION: No acute findings in the chest. No pulmonary embolus or thoracic aortic dissection. Stent graft involving the distal thoracic aorta without evidence of a leak. There is intraluminal thrombus within the wilton distal thoracic aortic aneurysm, with the t hrombus peripheral to the stent. The wilton thoracic aortic aneurysm measures 4.8 x 4.6 cm increased as compared to the prior exam where it measured 4.0 cm in greatest transverse dimension. 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 Stable small mediastinal lymph nodes. Electronically Signed: Brown Lord MD at 0:36 EDT , Service support [phone], C C: Nelia Smith DO; Tanmay Michel MD Law Instructor: Signed 11-Oct-2014 12 Lead Electrocardiogram Result: Comments: See Note; NOTES: [facility] Cardiovascular Services [address] [place] [address] 12 Lead EKG 10/09/142127 MR#: [id number] Acct: [id number] Name: LEYLA RIOJAS Rep #: [id number] : 1945 69 From: Benedicto Perla MD Attending Dr: Status: DEP ER Ordering Dr: Eugenia Armstrong MD Date: 10/09/14 Location: ED Sex: F C Admitted: Test Reason : CH EST PAIN Blood Pressure : / mmHG Vent. Rate : 085 BPM Atrial Rate : 085 BPM P-R Int : 132 ms QRS Dur : 074 ms QT Int : 374 ms P-R-T Axes : 075 070 060 degrees QTc Int : 445 ms Normal sin us rhythm Normal ECG Confirmed by YOU GUNTER, BENEDICTO ([id number]), acquisition editor TARA SERRANO ([id number]) on 2014 10:10:38 AM Referred By: DA/HARRY Confirmed By:BENEDICTO PERLA MD 10/11/14 1010 Date _ Benedicto Perla MD CC: Nelia Smith DO Date Dictated: 10/09/142127 Date Transcribed: 10/09/142127 Law Instructor: Signed 10-Oct-2014 Emergency Department Summary Result: Comments: See Note; NOTES: [facility] Medical Records Department [address] [place] [address] Emergency Department Summary MR#: [id number] Acct: [id number] Name: PRICILLAKrissy CAMARILLOLEYLA Hurt Rep #: [id number] : 1945 69 From: Eugenia Armstrong MD PCP: Nelia Smith DO Status: DEP ER DATE OF SERVICE: 10/09/2014 CHIEF COMPLAINT: Chest pain. SMITH HISTORY: The pat elvira is a 69-year-old female who had gradual, but rather quick onset of pain in her back between her shoulder blades as well as more mild pain in the left lower ribs. Pain onset was roughly 2 hours prior to arrival. She states she was not doing anything strenuous at that time. She tried taking an antacid without improvement. She had last eaten roughly 2 hours before symptoms started. She denies significant cardiac history. She denies diabetes, hypertension or high cholesterol. For her last surgery, she states she had an EKG and an echocardiogram that were unremarkable. PHYSICAL EXAMINAT ION: VITAL SIGNS: Blood pressure on arrival was 180/104, temperature 96.6, heart rate is 86, respiratory rate is 17, pulse oximetry is 98% on room air. GENERAL: The patient is sitting upright in bed . She appears uncomfortable. HEART: Regular. LUNGS: Clear. ABDOMEN: Soft with mild epigastric tenderness that does not recreate her pain. She has no reproducible back pain on exam. EXTREMITIES: Sh e has strong equal pulses throughout. HOSPITAL COURSE: Portable chest x-ray shows chronic changes with a tortuous aorta; this is unchanged compared to her prior study. EKG is sinus at 85 with no si gn of acute ischemia. CBC is remarkable only for white count of 11.1. Chemistry studies reveal creatinine of 1.1. Cardiac enzymes are negative. Due to concern for aortic disease, a CTA of the chest w as obtained. There is aneurysmal dilatation of the descending thoracic aorta measuring up to 3.8 x 4.0 cm. There are diffuse aneurysmal findings from the arch to the hiatus. There is no evidence of PE. There is no dissection. After speaking with the radiologist, I did see the patient back for a CT of the abdomen and pelvis without contrast to ensure that this aneurysm did not extend further i nto the abdomen. They comment on similar caliber, almost fusiform appearance of the descending thoracic aorta, which begins to taper the hiatus and then taper toward the bifurcation. The patient was given aspirin on arrival with morphine and Zofran, which did not improve her blood pressure. She was given 20 mg of labetalol and her blood pressure improved to 130-140 range. She also received 0. 5 mg of Dilaudid. At this time, her pain is a 2/10. Due to the concern with her pain being between her shoulder blades and finding of thoracic aneurysm, I do feel she should be evaluated by the vas cular or cardiothoracic. We do not have that capability here. After speaking with the patient, they would prefer to be transferred to [facility]. I spoke with the transfer line as well as the [facility] doctor and the patient will be admitted to medicine for cardiac rule out and will have a consultation to have further evaluation of her aneurysm. DISPOSITION: Transfer to [facility]. IMPRESSION: 1. Chest pain. 2. Thoracic aortic aneurysm. Eugenia Armstrong MD T: [facility] JOB: [id number] 10/10/14 2259 <Electronically signed by Eugenia Armstrong MD> Date Eugenia Armstrong MD CC: Nelia Smith DO Date Dictated: 10/10/1452 Date Transcribed: 10/10/1452 Law Instructor: Signed 09-Oct-2014 Abdomen/Pelvis without Cont Result: Comments: See Note; NOTES: [facility] Imaging Services [address] [place] [address] CAT Scan Report MR#: [id number] Acct: [id number] Name: LEYLA RIOJAS Rep #: [id number] : 1945 F 69 From: Deandra Parsons MD PCP: Nelia Smith DO Status: REG ER Study: Abdomen/Pelvis without Cont Date of Exam: 10/09/14 Exam# [id number] Ordering Dr: Eugenia Armstrong MD STUDY: CT ABDOMEN AND PELVIS WITHOUT CONTRAST REASON FOR EXAM: Female, 69 years old. Aneurysm pain RADIATION DOSAGE (If Supplied By Facility): CTDIvol = ( 14.50 ) mGy, DLP = ( 705.94 ) mGycm FIDELINA HNIQUE: Transaxial images were obtained from the dome of the diaphragm to the symphysis pubis without oral contrast, and without intravenous contrast. Sagittal and coronal images were reconstructed. COMPARISON: CT angiogram chest October 09, 2014 FINDINGS: Nonspecific minimal groundglass appearance of the lungs minimal atelectasis. Calcified granuloma right lung base. There is borderline cardiac enlargement. The liver appears borderline enlarged and fatty infiltrated. There are punctate calcifications in the liver compatible with old granulomatous di sease. Normal gallbladder and extrahepatic biliary system. There are multiple benign calcified granulomata of the spleen. Normal pancreas. Normal bilateral adrenal glands. There is a fatty appearin g mass within the right kidney measuring 3.1 mm suggestive of a lipoma or angiomyolipoma. Normal left kidney. Bilateral nephrograms appear symmetric and normal bilateral kidneys from the recent CTA c hest. There is a minimal hiatal hernia. Normal small intestine. There is abundant stool in the colon. There are a few scattered diverticula present without evidence of diverticulitis. There is non-v isualization of the appendix. There is aneurysmal dilatation of the descending thoracic aorta as it enters the abdomen measuring up to 3.8 x 3.2 cm. At the level of the celiac axis it measures appr oximately 3 x 2.8 cm. At the takeoff of the renal arteries aorta measures 2.5 x 2.6 cm. There is calcification of the takeoff of the renal arteries. The aorta is minimally tortuous. The bifurcation t he aorta measures 2.0 x 2.1 cm. Normal inferior vena cava. Normal retroperitoneum. The bladder is distended and full of IV contrast from the previous procedure. There is absence of the uterus consis tent with a prior hysterectomy. Normal abdominal wall. There are diffuse degenerative changes of the visualized lumbar spine. This is most significant at the level of L4-L5 where there is severe ne ural foramina narrowing and severe central stenosis. There is a central disc bulge at the level of L5-S1. There is moderate central stenosis and mild bilateral neural foramina narrowing. IMPRESSION: There is a similar caliber almost fusiform appearance of the descending thoracic aorta which begins to taper at the hiatus as detailed above measuring 3 x 2.8 cm and then tapers towards the bifurcation. Enlarged fatty infiltrated liver. 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 Degene rative change thoracolumbar spine. Electronically Signed: Deandra Parsons MD at 23:55 EST Tel , Service support [phone], CC: Eugenia Armstrong MD; Yojana Smith DO Law Instructor: Signed 09-Oct-2014 CTA Chest W/WO Contrast Result: Comments: See Note; NOTES: [facility] Imaging Services [address] [address] CAT Scan Report MR#: [id number] Acct: [id number] Name: LEYLA RIOJAS Rep #: [id number] : 1945 F 69 From: Deandra Parsons MD PCP: Nelia Smith DO Status: REG ER Study: CTA Chest W/WO Contrast Date of Exam: 10/09/14 Exam# [id number] Ordering Dr: Eugenia Armstrong MD [facility] DY: CTA CHEST REASON FOR EXAM: Female, 69 years old. Chest pain RADIATION DOSAGE (If Supplied By Facility): CTDIvol = ( 14.65 ) mGy, DLP = ( 711.43 ) mGycm TECHNIQUE: The examination was performe d with the intravenous administration of 75ML ml of Isovue 370 contrast material. Post-processing of the angiographic images was performed, with multiplanar reformation and 3D reconstruction. AKIN RISON: Chest x-ray June 09, 2014 FINDINGS: Normal enhancement of the main pulmonary artery and right and left pulmonary arteries. Normal enhancement of the bilateral peripheral pulmonary arteries. There is no demonstrated pulmonary embolism. There is prominence of the main pulmonary arteries without peripheral pulmonary vascular congestion, suggesting pulmonary hypertension. The ascending thoracic aorta has a normal caliber however after the takeoff of the subclavian there is aneurysmal dilatation of the descending thoracic aorta expands to a max imal diameter of 3.8 x 4.0 cm with some peripheral thrombus. The aorta at the level of the celiac measures 2.9 x 2.9 cm. There is no demonstrated aortic dissection. There is mild cardiomegaly. Th ere is an inhomogeneous appearance of the thyroid gland with a low attenuating lesion in the left thyroid gland measuring 6.3 mm. In the inferior aspect of the right thyroid lobe there is a 7.6 mm cys tic nodule. There are a few nonspecific mediastinal lymph nodes. There is a pretracheal lymph node measuring 1.2 cm. There are a few calcified subcarinal lymph nodes. There are calcified right hilar lymph nodes. Normal visualized trachea and bronchi. The lungs are well expanded. There are a few scattered areas of groundglass opacity demonstrated. There is minimal fibrotic change in the upper f ar apices. There is a calcified granuloma in the right lower lobe measuring 9.3 mm. Normal pleura. Normal chest wall structures. There are degenerative changes of thoracic spine. The liver is e nlarged and fatty infiltrated there are calcified granulomas in the spleen. IMPRESSION: There is aneurysmal dilatation of the descending thoracic aorta measuring up to 3.8 x 4.0 cm. It is diffusely aneurysmal from the arch to the hiatus. There is mild aneurysmal dilatation of the visualized abdominal aorta. Inhomogeneous thyroid gland. Recommend considerat ion for followup thyroid ultrasound when clinically appropriate. Old granulomatous disease Borderline cardiac enlargement No evidence of pulmonary embolism. Electronically Signed: Deandra Parsons MD at 22:59 EST Tel , Service support [phone], CC: Eugenia Armstrong MD; Nelia Smith DO Law Instructor: Signed 09-Oct-2014 Chest 1 View (Portable) Result: Comments: See Note; NOTES: [facility] Imaging Services [address] [place] [address] Radiology Report MR#: [id number] Acct: [id number] Name: LEYLA RIOJAS Rep #: [id number] : 1945 F 69 From: Lazaro Abrams MD PCP: Nelia Smith DO Status: DEP ER Study: Chest 1 View (Portable) Date of Exam: 10/09/14 Exam# [id number] Ordering Dr: Eugenia Armstrong MD STUDY: X-RAY CHEST REASON FOR EXAM: Female, 69 years old. Chest pain. TECHNIQUE: Single AP portable view of the chest. COMPARISON: Comparison is made with prior study dated June 09, 2014 . FINDINGS: EKG electrodes are seen. Calcified old granulomatous disease. Hyperinflation. There is no demonstrated pleural abnormality. Normal size heart. No rmal mediastinum and cheli. Normal visualized pulmonary arteries. There is atherosclerotic tortuosity of the aortic arch and descending thoracic aorta. Normal visualized thoracic spine. Normal visual ized ribs, clavicles, and shoulders. There is no demonstrated abnormality of the visualized soft tissue structures of the upper abdomen. IMPRESSION: Hyperinfl ation. Calcified old granulomatous disease. Electronically Signed: Lazaro Abrams MD at 11:07 EST Tel [phone], Service support [phone], CC: Eugenia Armstrong MD; Nelia Smith DO Law Instructor: Signed 22-Jun-2014 Bilat Scrsebastian Digital & CAD Result: Comments: See Note; NOTES: [facility] Imaging Services [address] [place] [address] Breast Imaging Report MR#: [id number] Acct: [id number] Name: LEYLA RIOJAS Rep #: [id number] : 1945 F 68 From: Lazaro Abrams MD PCP: Nelia Smith DO Status: [facility] Exam# [id number] Ordering Dr: Nelia Smith DO MAMMOGRAPHY - BILATERAL SCREENING REASON FOR EXAM: Female, 68 years old. Routine annual screening examination. PERTINENT HISTORY: Prior bilateral excisional biopsies. TECHNIQUE: Digital examination. Mediolateral oblique (MLO) and cranio caudad (CC) views of both breasts were obtained. CAD: CAD was performed on this study. COMPARISON: Comparison is made with prior study dated August 10, 2013 and August 06, 2012. FINDINGS: Breast Composition: There are scattered areas of fibroglandular density. There are no dominant masses or suspicious calcifications. No other significant abnormalitie s are identified. There has been no significant change since the prior study. IMPRESSION: Stable bilateral screening mammogram. Yearly follow-up recommended. (A) ASSESSMENT CATEGORY: BIRADS Category 2: Benign finding(s). A letter regarding these results will be sent to the patient by the facility within 30 days. Approx imately 10% of breast cancers are not detected by mammography. A normal mammogram should not delay biopsy of a clinically suspicious abnormality. Electronically Signed: Lazaro Abrams MD 2013 at 9:25 EDT Tel [phone], Service support [phone], CC: Nelia Smith DO Law Instructor: Signed 12-Jun-2014 Echocardiogram Complete Result: Comments: See Note; NOTES: [facility] Cardiovascular Services [address] [place] [address] Echo Complete 06/12/14 0956 MR#: [id number] Acct: [id number] Name: LEYLA NEUMANN Rep #: [id number] : 1945 68 From: Ceasar Wagner MD Attending Dr: Nelia Smith DO Status: REG CLI Ordering Dr: Nelia Smith DO Date: 06/12/14 Location: [facility] Sex: F C Admitted: Procedure This was a 2D Doppler, Color Flow transthoracic echocardiogram. Exam performed in department. Left Ventricle Normal LV size. Left ventricular systolic function is normal. The estimat ed ejection fraction is 70 %. No regional wall motion abnormalities noted. Right Ventricle Normal RV size. Normal systolic function. Atria Normal left atrium. Normal right atrium. Mitral Valve Normal mitral valve. Tricuspid Valve Normal tricuspid valve. Mild (1+) tricuspid valve insufficiency. Pulmonary artery systolic pressure is 22 mmHg. Aortic Valve Normal aortic valve. Pulmoni c Valve Normal pulmonic valve. Great Vessels Normal aortic root. The pulmonary artery is normal size. Normal inferior vena cava. Pericardium/Pleural No pericardial effusion. LVIDd: 4.1 cm IVS d: 1.0 cm Ao root diam: 2.5 cm LAV(MOD-bp): 36.4 ml LVIDs: 1.9 cm LVPWd: 0.91 cm Ao root area: 4.8 cm2 LAV(MOD-bp) Indexed: 20.1 ml/m2 RVDd: 2.7 cm FS: 52.2 % LA dimension: 4.0 cm LAV(MOD-sp2): 39.3 ml LAV(MOD-sp4): 34.3 ml LA A4 area: 14.7 cm2 RA A4 area: 12.4 cm2 MV E max jeremiah: 98.5 cm/secLat Peak E' Jeremiah: Me d Peak E' Jeremiah: Ao V2 max: MV A max jeremiah: 9.8 cm/sec 6.6 cm/sec 156.2 cm/sec 114.7 cm/sec Ao max P.8 mmHg MV E/A: 0.86 ___ LV V1 max: 122.3 cm/sec PA V2 max: 75.1 cm/sec TR max jeremiah: 211.1 cm/sec E /E' lat: 10.1 LV V1 max P.0 mmHg PA max P.3 mmHg TR max P.8 mmHg E/E' med: 14.9 Interpretation Summary Normal LV size. Left ventricular systolic function is normal. The estimated ejection fraction is 70 %. Mild (1 +) tricuspid valve insufficiency. Ordering Physician: Nelia Smith Performed By: Chastity Camejo RDCS 06/12/14 1430 Date Ceasar Wagner MD CC: Nelia Smith DO Yasmani e Dictated: 06/12/14 0956 Date Transcribed: 06/12/14 1430 Law Instructor: Signed 09-Jun-2014 Chest PA and Lateral Result: Comments: See Note; NOTES: [facility] Imaging Services [address] [place] [address] Radiology Report MR#: [id number] Acct: [id number] Name: LEYLA RIOJAS Rep #: [id number] : 1945 F 68 From: Zaki Farooq DO PCP: Nelia Smith DO Status: REG CLI Study: Chest PA and Lateral Date of Exam: 06/09/14 Exam# [id number] Ordering Dr: Nelia Smith TUDY: X-RAY CHEST REASON FOR EXAM: Female, 68 years old. Abnormal pulmonary function test results. History of bilateral breast lumpectomies. TECHNIQUE: PA and lateral views of the chest. COMPARIS ON: August 01, 2008 FINDINGS: The lungs are hyperinflated. Interstitial prominence is demonstrated bilaterally. There is no focal pneumonia, large pleural effu flor or pneumothorax demonstrated. Calcification in the right lung base laterally is stable. Normal size heart. There are calcified mediastinal lymph nodes. Normal visualized pulmonary arteries. Th ere is atherosclerotic tortuosity of the aortic arch and descending thoracic aorta. There are mild degenerative changes of the visualized thoracic spine. Normal visualized ribs, clavicles, and shoul ders. There is no demonstrated abnormality of the visualized soft tissue structures of the upper abdomen. IMPRESSION: COPD. No acute airspace opacities are d emonstrated. Calcification right lung base laterally is stable. Electronically Signed: Jasbir Rothman DO at 13:47 EDT , Service support [phone], RAD/Chest PA and Lateral IMPRESSION: COPD. No acute airspace opacities are demonstrated. Calcification right lung base laterally is stable. Electronically Signed: Jasbir witt DO at 13:47 EDT , Service support [phone], CC: Nelia Smith DO Law Instructor: Signed 09-Jun-2014 Spirometry ([id number]) Result: 10-Aug-2013 Bilat Scrn Digital & CAD Result: Comments: See Note; NOTES: [facility] Imaging Services [address] [place] [address] Breast Imaging Report MR#: [id number] Acct: [id number] Name: LEYLA RIOJAS Rep #: [id number] : 1945 F 67 From: Lazaro Abrams MD PCP: Nelia Smith DO Status: REG CLI Exam# [id number] Ordering Dr: Nelia Smith DO MAMMOGRAPHY - BILATERAL SCREENING REASON FOR EXAM: Female, 67 years old. Routine annual screening examination. PERTINENT HISTORY: Mother with breast cancer. Aunt with breast cancer. TECHNIQUE: Digital examination. Mediolateral oblique (M LO) and craniocaudad (CC) views of both breasts were obtained. CAD: CAD was performed on this study. COMPARISON: Comparison is made with prior study dated August 06, 2012 and August 05, 2011. __ FINDINGS: The breast composition is composed of scattered fibroglandular tissues ranging from 25% to 50% of the breast. There are no dominant masses or suspicious calcifications. No other significant abnormalities are identified. There has been no significant change since the prior study. IMPRESSION: Stable bilateral sc reening mammogram. Yearly follow-up recommended. (A) ASSESSMENT CATEGORY: BIRADS Category 2: Benign finding(s). A letter regarding these results will be sent to the patient by the facility within 30 days. Approximately 10% of breast cancers are not detected by mammography. A normal mammogram should not delay biopsy of a clinically suspicious abnormality. Signed: Lazaro Abrams M.D. August 10, 2013 at 9:02:54 AM EST [phone] Electronically Signed GP/GP If you are the referring physician and would like to consult with the radiologist w ho provided this interpretation, please contact Lazaro Abrams M.D. at [phone]. If this radiologist is unavailable, you will be directed to another radiologist to assist. If you are a marco ent with a question regarding this report, please contact your referring physician directly. Professional Interpretation Provided By: [employer], Phone , These docum ents contain legally protected and confidential health information intended only for the use of the individual or entity named above. If you are not the intended recipient, you are hereby notified angela t any disclosure, copying, distribution, or other use of these documents is strictly prohibited. If you have received this information in error, please notify the sender immediately and arrange for t he return or destruction of these documents. CC: Nelia Smith DO Law Instructor: Signed 10-Aug-2013 Dexa Bone Density Study (HP) Result: Comments: See Note; NOTES: [facility] Imaging Services [address] [place] [address] Bone Density Report MR#: [id number] Acct: [id number] Name: LEYLA RIOJAS Rep #: [id number] : 1945 F 67 From: Lazaro Abrams MD PCP: Nelia Smith DO Status: [facility] CLI Study: Dexa Bone Density Study (HP) Date of Exam: 08/10/13 Exam# [id number] Ordering Dr: May Smith DO STUDY: DUAL ENERGY X-RAY ABSORPTIOMETRY / DXA REASON FOR EXAM: Female, 67 years old. The patient is postmenopausal. TECHNIQUE: Bone Mineral Density (BMD) measurements of lumbar spine and bilateral hips were obtained. COMPARISON: Comparison is made with prior examination dated August 05, 2011. FINDINGS: Lumbar Spine (L1-L4): g/cm2 (1.222) / T-score (0.4) / Z-score (2.0) Findings are suggestive of normal bone density with a low fracture risk. Left Femur Total: g/cm2 (1.073) / T-score (0.5) / Z-score (2.0) Left Femoral Neck: g/cm2 (0. 974) / T-score (-0.5) / Z-score (1.2) Right Femur Total: g/cm2 (1.040) / T-score (0.3) / Z-score (1.7) Right Femoral Neck: g/cm2 (0.926) / T-score (-0.8) / Z- score (0.9) The T-Scores on the most rec ent prior examination were: Lumbar Spine (L1-L4): There has been improvement of bone density since the previous examination. Left Femur Total: which represents an improvement of 0.7%. Right Femur Total: which represents a worsening of 0.5%. IMPRESSION: The patient is considered normal as outlined below according to World Kian Organization (WHO) criteria with a low fracture risk. There has been improvement of bone density since the previous examination. Reference Information: The T-score is the number of standar d deviations above or below the standard which is normal for young adults at their peak bone mineral density. The World Health Organization (WHO) interprets the T-scores as follows: Above -1 Normal bone density Between -1 and -2.5 Osteopenia Equal to / or below -2.5 Osteoporosis As a practical clinical guideline, osteopenia may be graded as follows: Mild -1 through -1.5 Moderate -1.6 throug h -2.0 Severe -2.1 through -2.4 The Z-score is the number of standard deviations above or below age-matched controls. A Z-score of less than -1.5 would be considered abnormal. References: 1. NIH Osteoporosis and Related Bone Diseases http://www.osteo.org 2. International Society for Clinical Densitometry http://www.iscd.org 3. National Osteoporosis Foundation http://www.nof.org Signed: Hayder Abrams M.D. August 10, 2013 at 2:57:37 PM EST [phone] Electronically Signed GP/GP If you are the referring physician and would like to consult with the radiologist who provided this interpretation, please contact Lazaro Abrams M.D. at [phone]. If this radiologist is unavailable, you will be directed to another radiologist to assist. If you are a patient with a q uestion regarding this report, please contact your referring physician directly. Professional Interpretation Provided By: [employer], Phone , These documents contain legally protected and confidential health information intended only for the use of the individual or entity named above. If you are not the intended recipient, you are hereby notified that any discl osure, copying, distribution, or other use of these documents is strictly prohibited. If you have received this information in error, please notify the sender immediately and arrange for the return or destruction of these documents. CC: Nelia Smith DO Law Instructor: Signed Family History Unknown Family Member Name Dates Details Alcohol Abuse Status: Active Cancer Status: Active Diabetes Mellitus Status: Active Father Comments: ETOH Status: Active Mother Comments: Cancer Status: Active Sister 1 Comments: Diabetes Status: Active Social History Name Dates Details Alcohol Use Comments: 2 Weekly Status: Active Caffeine Use Comments: 3 glasses coffee,tea,cola Status: Active Housing Status: Active Living Situation Comments: Status: Active Tobacco use: Former smoker. Comments: Quit 2014 Status: Active Tobacco Use Comments: 09/29 38 Status: Inactive Smoking Status Name Dates Details Former smoker Smoker. current status unknown Vital Signs Date Test Result Details [id number] Pulse 62 /min Comments: Pattern: Regular Respiration Rate 18 /min Comments: Pattern: Unlabored O2 SAT 97 % Comments: Room air BP Systolic 142 mm[Hg] Comments: Patient Position: Sitting; Cuff Location: Left Arm; Cuff Size: Large BP Diastolic 80 mm[Hg] Comments: Patient Position: Sitting; Cuff Location: Left Arm; Cuff Size: Large Weight 182.25 lb Height 64 in Body Mass Index Calculated 31.28 kg/m2 Body Surface Area Calculated 1.88 m2 [id number] Comments: after - coltete scale 12 Temperature 97.2 f Pulse 70 /min Comments: Pattern: Regular Respiration Rate 17 /min Comments: Pattern: Unlabored O2 SAT 98 % Comments: Room air BP Systolic 138 mm[Hg] Comments: Patient Position: Sitting; Cuff Location: Left Arm; Cuff Size: Standard BP Diastolic 80 mm[Hg] Comments: Patient Position: Sitting; Cuff Location: Left Arm; Cuff Size: Standard Weight 188.5 lb Height 64 in Body Mass Index Calculated 32.36 kg/m2 Body Surface Area Calculated 1.91 m2 :28 Comments: BEFORE -- 8 on colette scale Temperature 96.9 f Comments: Method: Temporal Pulse 50 /min Comments: Pattern: Regular Respiration Rate 16 /min Comments: Pattern: Unlabored O2 SAT 97 % Comments: Room air BP Systolic 132 mm[Hg] Comments: Patient Position: Sitting; Cuff Location: Left Arm; Cuff Size: Standard BP Diastolic 74 mm[Hg] Comments: Patient Position: Sitting; Cuff Location: Left Arm; Cuff Size: Standard Weight 188.5 lb Height 64 in Body Mass Index Calculated 32.36 kg/m2 Body Surface Area Calculated 1.91 m2 :07 Pulse 64 /min Comments: Pattern: Regular Respiration Rate 18 /min Comments: Pattern: Unlabored O2 SAT 97 % Comments: Room air BP Systolic 138 mm[Hg] Comments: Patient Position: Sitting; Cuff Location: Left Arm; Cuff Size: Large BP Diastolic 78 mm[Hg] Comments: Patient Position: Sitting; Cuff Location: Left Arm; Cuff Size: Large Weight 188.5 lb Height 64 in Body Mass Index Calculated 32.36 kg/m2 Body Surface Area Calculated 1.91 m2 [id number] Comments: 133/79 this am at home Temperature 98.2 f Comments: Method: Temporal Pulse 65 /min Comments: Pattern: Regular Respiration Rate 16 /min Comments: Pattern: Unlabored O2 SAT 95 % Comments: Room air BP Systolic 144 mm[Hg] Comments: Patient Position: Sitting; Cuff Location: Left Arm; Cuff Size: Standard BP Diastolic 78 mm[Hg] Comments: Patient Position: Sitting; Cuff Location: Left Arm; Cuff Size: Standard Weight 186 lb Height 64 in Body Mass Index Calculated 31.93 kg/m2 Body Surface Area Calculated 1.9 m2 :08 Comments: hearing [email or web address] and had a glaucoma test done Pulse 64 /min Comments: Pattern: Regular Respiration Rate 18 /min Comments: Pattern: Unlabored O2 SAT 96 % Comments: Room air BP Systolic 162 mm[Hg] Comments: Patient Position: Sitting; Cuff Location: Left Arm; Cuff Size: Large BP Diastolic 70 mm[Hg] Comments: Patient Position: Sitting; Cuff Location: Left Arm; Cuff Size: Large Weight 186.25 lb Height 64 in Body Mass Index Calculated 31.97 kg/m2 Body Surface Area Calculated 1.9 m2 :29 Pulse 67 /min Comments: Pattern: Regular Respiration Rate 18 /min Comments: Pattern: Unlabored O2 SAT 97 % Comments: Room air BP Systolic 122 mm[Hg] Comments: Patient Position: Sitting; Cuff Location: Left Arm; Cuff Size: Large BP Diastolic 82 mm[Hg] Comments: Patient Position: Sitting; Cuff Location: Left Arm; Cuff Size: Large Weight 186.25 lb Height 64 in Body Mass Index Calculated 31.97 kg/m2 Body Surface Area Calculated 1.9 m2 :26 Temperature 98 f Pulse 66 /min Comments: Pattern: Regular Respiration Rate 16 /min Comments: Pattern: Unlabored O2 SAT 97 % Comments: Room air BP Systolic 118 mm[Hg] Comments: Patient Position: Sitting; Cuff Location: Left Arm; Cuff Size: Standard BP Diastolic 72 mm[Hg] Comments: Patient Position: Sitting; Cuff Location: Left Arm; Cuff Size: Standard Weight 187 lb Height 64 in Body Mass Index Calculated 32.1 kg/m2 Body Surface Area Calculated 1.9 m2 :08 Pulse 76 /min Comments: Pattern: Regular Respiration Rate 18 /min Comments: Pattern: Unlabored O2 SAT 94 % Comments: Room air BP Systolic 152 mm[Hg] Comments: Patient Position: Sitting; Cuff Location: Left Arm; Cuff Size: Large BP Diastolic 82 mm[Hg] Comments: Patient Position: Sitting; Cuff Location: Left Arm; Cuff Size: Large Weight 187 lb Height 64 in Body Mass Index Calculated 32.1 kg/m2 Body Surface Area Calculated 1.9 m2 :09 Temperature 98.7 f Pulse 83 /min Comments: Pattern: Regular Respiration Rate 16 /min Comments: Pattern: Unlabored O2 SAT 93 % Comments: Room air BP Systolic 124 mm[Hg] Comments: Patient Position: Sitting; Cuff Location: Left Arm; Cuff Size: Standard BP Diastolic 82 mm[Hg] Comments: Patient Position: Sitting; Cuff Location: Left Arm; Cuff Size: Standard Weight 187 lb Height 64 in Body Mass Index Calculated 32.1 kg/m2 Body Surface Area Calculated 1.9 m2 :07 Temperature 98 f Pulse 76 /min Comments: Pattern: Regular Respiration Rate 16 /min Comments: Pattern: Unlabored O2 SAT 93 % Comments: Room air BP Systolic 118 mm[Hg] Comments: Patient Position: Sitting; Cuff Location: Left Arm; Cuff Size: Standard BP Diastolic 68 mm[Hg] Comments: Patient Position: Sitting; Cuff Location: Left Arm; Cuff Size: Standard Weight 187.25 lb Height 64 in Body Mass Index Calculated 32.14 kg/m2 Body Surface Area Calculated 1.9 m2 :12 Temperature 98 f Pulse 63 /min Comments: Pattern: Regular Respiration Rate 15 /min Comments: Pattern: Unlabored O2 SAT 96 % Comments: Room air BP Systolic 130 mm[Hg] Comments: Patient Position: Sitting; Cuff Location: Left Arm; Cuff Size: Standard BP Diastolic 68 mm[Hg] Comments: Patient Position: Sitting; Cuff Location: Left Arm; Cuff Size: Standard Weight 187.25 lb Height 64 in Body Mass Index Calculated 32.14 kg/m2 Body Surface Area Calculated 1.9 m2 :59 Temperature 97 f Pulse 81 /min Comments: Pattern: Regular Respiration Rate 16 /min Comments: Pattern: Unlabored O2 SAT 95 % Comments: Room air Weight 178.25 lb Height 64 in Body Mass Index Calculated 30.6 kg/m2 Body Surface Area Calculated 1.86 m2 :14 Pulse 79 /min Comments: Pattern: Regular Respiration Rate 20 /min Comments: Pattern: Unlabored O2 SAT 97 % Comments: Room air Weight 178.125 lb Height 64 in Body Mass Index Calculated 30.57 kg/m2 Body Surface Area Calculated 1.86 m2 :24 Comments: 04/06- with mvt Temperature 98 f Comments: Method: Oral Pulse 72 /min Comments: Pattern: Regular Respiration Rate 17 /min O2 SAT 97 % Comments: Room air BP Systolic 126 mm[Hg] Comments: Patient Position: Sitting; Cuff Location: Left Arm; Cuff Size: Standard BP Diastolic 74 mm[Hg] Comments: Patient Position: Sitting; Cuff Location: Left Arm; Cuff Size: Standard Weight 177.125 lb Height 64 in Body Mass Index Calculated 30.4 kg/m2 Body Surface Area Calculated 1.86 m2 :06 Pulse 94 /min Comments: Pattern: Regular Respiration Rate 18 /min Comments: Pattern: Unlabored O2 SAT 94 % Comments: Room air BP Systolic 118 mm[Hg] Comments: Patient Position: Sitting; Cuff Location: Right Arm; Cuff Size: Standard BP Diastolic 60 mm[Hg] Comments: Patient Position: Sitting; Cuff Location: Right Arm; Cuff Size: Standard Weight 177.25 lb Height 64 in Body Mass Index Calculated 30.42 kg/m2 Body Surface Area Calculated 1.86 m2 :32 Temperature 97.6 f Pulse 68 /min Comments: Pattern: Regular Respiration Rate 16 /min Comments: Pattern: Unlabored O2 SAT 95 % Comments: Room air BP Systolic 112 mm[Hg] Comments: Patient Position: Sitting; Cuff Location: Left Arm; Cuff Size: Standard BP Diastolic 78 mm[Hg] Comments: Patient Position: Sitting; Cuff Location: Left Arm; Cuff Size: Standard :18 Pulse 70 /min Comments: Pattern: Regular Respiration Rate 18 /min Comments: Pattern: Unlabored O2 SAT 98 % Comments: Room air BP Systolic 122 mm[Hg] Comments: Patient Position: Sitting; Cuff Location: Left Arm; Cuff Size: Large BP Diastolic 78 mm[Hg] Comments: Patient Position: Sitting; Cuff Location: Left Arm; Cuff Size: Large Weight 191.125 lb Height 64 in Body Mass Index Calculated 32.81 kg/m2 Body Surface Area Calculated 1.92 m2 :11 Temperature 98.6 f Comments: Method: Temporal Pulse 70 /min Comments: Pattern: Regular Respiration Rate 16 /min Comments: Pattern: Unlabored O2 SAT 97 % Comments: Room air BP Systolic 148 mm[Hg] Comments: Patient Position: Sitting; Cuff Location: Left Arm; Cuff Size: Large BP Diastolic 82 mm[Hg] Comments: Patient Position: Sitting; Cuff Location: Left Arm; Cuff Size: Large Weight 186.3125 lb Height 64 in Body Mass Index Calculated 31.98 kg/m2 Body Surface Area Calculated 1.9 m2 :15 Comments: not [facility] [place] - has had eye exam ijn march 2015 months including glaucoma screen Temperature 97.6 f Comments: Method: Temporal Pulse 65 /min Comments: Pattern: Regular Respiration Rate 16 /min Comments: Pattern: Unlabored O2 SAT 98 % Comments: Room air BP Systolic 130 mm[Hg] Comments: Patient Position: Sitting; Cuff Location: Left Arm; Cuff Size: Standard BP Diastolic 74 mm[Hg] Comments: Patient Position: Sitting; Cuff Location: Left Arm; Cuff Size: Standard Weight 183 lb Height 64 in Body Mass Index Calculated 31.41 kg/m2 Body Surface Area Calculated 1.88 m2 :51 Temperature 97.4 f Pulse 69 /min Comments: Pattern: Regular Respiration Rate 16 /min Comments: Pattern: Unlabored O2 SAT 97 % Comments: Room air BP Systolic 132 mm[Hg] Comments: Patient Position: Sitting; Cuff Location: Left Arm; Cuff Size: Standard BP Diastolic 86 mm[Hg] Comments: Patient Position: Sitting; Cuff Location: Left Arm; Cuff Size: Standard Weight 183.375 lb Height 64 in Body Mass Index Calculated 31.48 kg/m2 Body Surface Area Calculated 1.89 m2 :34 Temperature 98.1 f Comments: Method: Temporal Pulse 76 /min Comments: Pattern: Regular Respiration Rate 18 /min Comments: Pattern: Unlabored O2 SAT 97 % Comments: Room air BP Systolic 120 mm[Hg] Comments: Patient Position: Sitting; Cuff Location: Left Arm; Cuff Size: Standard BP Diastolic 80 mm[Hg] Comments: Patient Position: Sitting; Cuff Location: Left Arm; Cuff Size: Standard Weight 178 lb Height 64 in Body Mass Index Calculated 30.55 kg/m2 Body Surface Area Calculated 1.86 m2 :38 Pulse 68 /min Comments: Pattern: Regular Respiration Rate 18 /min Comments: Pattern: Unlabored O2 SAT 99 % Comments: Room air BP Systolic 118 mm[Hg] Comments: Patient Position: Sitting; Cuff Location: Left Arm; Cuff Size: Large BP Diastolic 64 mm[Hg] Comments: Patient Position: Sitting; Cuff Location: Left Arm; Cuff Size: Large Weight 178.375 lb Height 64 in Body Mass Index Calculated 30.62 kg/m2 Body Surface Area Calculated 1.86 m2 :59 Pulse 80 /min Comments: Pattern: Regular Respiration Rate 20 /min Comments: Pattern: Unlabored O2 SAT 98 % Comments: Room air BP Systolic 162 mm[Hg] Comments: Patient Position: Sitting; Cuff Location: Left Arm; Cuff Size: Standard BP Diastolic 90 mm[Hg] Comments: Patient Position: Sitting; Cuff Location: Left Arm; Cuff Size: Standard Weight 179 lb Height 64 in Body Mass Index Calculated 30.72 kg/m2 Body Surface Area Calculated 1.87 m2 :57 Pulse 75 /min Comments: Pattern: Regular Respiration Rate 18 /min Comments: Pattern: Unlabored O2 SAT 98 % Comments: Room air BP Systolic 122 mm[Hg] Comments: Patient Position: Sitting; Cuff Location: Left Arm; Cuff Size: Large BP Diastolic 82 mm[Hg] Comments: Patient Position: Sitting; Cuff Location: Left Arm; Cuff Size: Large Weight 176.5 lb Height 64 in Body Mass Index Calculated 30.3 kg/m2 Body Surface Area Calculated 1.85 m2 [id number] Pulse 72 /min Comments: Pattern: Regular Respiration Rate 20 /min Comments: Pattern: Unlabored O2 SAT 97 % Comments: Room air BP Systolic 128 mm[Hg] Comments: Patient Position: Sitting; Cuff Location: Left Arm; Cuff Size: Large BP Diastolic 78 mm[Hg] Comments: Patient Position: Sitting; Cuff Location: Left Arm; Cuff Size: Large Weight 172.125 lb Height 64 in Body Mass Index Calculated 29.54 kg/m2 Body Surface Area Calculated 1.84 m2 [id number] Pulse 68 /min Comments: Pattern: Regular Respiration Rate 18 /min Comments: Pattern: Unlabored O2 SAT 98 % Comments: Room air BP Systolic 128 mm[Hg] Comments: Patient Position: Sitting; Cuff Location: Left Arm; Cuff Size: Large BP Diastolic 82 mm[Hg] Comments: Patient Position: Sitting; Cuff Location: Left Arm; Cuff Size: Large Weight 168.3125 lb Height 64 in Body Mass Index Calculated 28.89 kg/m2 Body Surface Area Calculated 1.82 m2 :03 Temperature 98.6 f Comments: Method: Oral Pulse 88 /min Comments: Pattern: Regular Respiration Rate 18 /min O2 SAT 95 % Comments: Room air BP Systolic 130 mm[Hg] Comments: Patient Position: Sitting; Cuff Location: Left Arm; Cuff Size: Standard BP Diastolic 80 mm[Hg] Comments: Patient Position: Sitting; Cuff Location: Left Arm; Cuff Size: Standard Weight 161.375 lb Height 64 in Body Mass Index Calculated 27.7 kg/m2 Body Surface Area Calculated 1.79 m2 :01 Comments: eye doc Dr. Benjie lowery Pulse 96 /min Comments: Pattern: Regular Respiration Rate 18 /min Comments: Pattern: Unlabored O2 SAT 98 % Comments: Room air BP Systolic 118 mm[Hg] Comments: Patient Position: Sitting; Cuff Location: Left Arm; Cuff Size: Standard BP Diastolic 72 mm[Hg] Comments: Patient Position: Sitting; Cuff Location: Left Arm; Cuff Size: Standard Weight 161.375 lb Height 64 in Body Mass Index Calculated 27.7 kg/m2 Body Surface Area Calculated 1.79 m2 :09 BP Systolic 152 mm[Hg] Comments: Patient Position: Sitting; Cuff Location: Right Arm; Cuff Size: Standard BP Diastolic 82 mm[Hg] Comments: Patient Position: Sitting; Cuff Location: Right Arm; Cuff Size: Standard :57 Temperature 97.7 f Comments: Method: Oral Pulse 81 /min Comments: Pattern: Regular Respiration Rate 18 /min Comments: Pattern: Unlabored O2 SAT 97 % Comments: Room air BP Systolic 158 mm[Hg] Comments: Patient Position: Sitting; Cuff Location: Left Arm; Cuff Size: Large BP Diastolic 80 mm[Hg] Comments: Patient Position: Sitting; Cuff Location: Left Arm; Cuff Size: Large Weight 162 lb Height 64 in Body Mass Index Calculated 27.81 kg/m2 Body Surface Area Calculated 1.79 m2 :58 Temperature 98.4 f Comments: Method: Oral Pulse 84 /min Comments: Pattern: Regular Respiration Rate 18 /min O2 SAT 97 % Comments: Room air BP Systolic 126 mm[Hg] Comments: Patient Position: Sitting; Cuff Location: Left Arm; Cuff Size: Standard BP Diastolic 72 mm[Hg] Comments: Patient Position: Sitting; Cuff Location: Left Arm; Cuff Size: Standard Weight 161.375 lb Height 64 in Body Mass Index Calculated 27.7 kg/m2 Body Surface Area Calculated 1.79 m2 :12 Temperature 98.9 f Comments: Method: Oral Pulse 84 /min Comments: Pattern: Regular Respiration Rate 16 /min Comments: Pattern: Unlabored O2 SAT 96 % Comments: Room air BP Systolic 130 mm[Hg] Comments: Patient Position: Sitting; Cuff Location: Left Arm; Cuff Size: Standard BP Diastolic 76 mm[Hg] Comments: Patient Position: Sitting; Cuff Location: Left Arm; Cuff Size: Standard Weight 161.375 lb Height 64 in Body Mass Index Calculated 27.7 kg/m2 Body Surface Area Calculated 1.79 m2 :53 Temperature 97.6 f Comments: Method: Oral Pulse 90 /min Comments: Pattern: Regular Respiration Rate 16 /min Comments: Pattern: Unlabored O2 SAT 96 % Comments: Room air BP Systolic 122 mm[Hg] Comments: Patient Position: Sitting; Cuff Location: Left Arm; Cuff Size: Large BP Diastolic 70 mm[Hg] Comments: Patient Position: Sitting; Cuff Location: Left Arm; Cuff Size: Large Weight 163 lb Height 64 in Body Mass Index Calculated 27.98 kg/m2 Body Surface Area Calculated 1.79 m2 :16 Temperature 97.6 f Comments: Method: Oral Pulse 80 /min Comments: Pattern: Regular Respiration Rate 18 /min Comments: Pattern: Unlabored BP Systolic 142 mm[Hg] Comments: Patient Position: Sitting; Cuff Location: Left Arm; Cuff Size: Standard BP Diastolic 82 mm[Hg] Comments: Patient Position: Sitting; Cuff Location: Left Arm; Cuff Size: Standard Weight 163 lb Height 64 in Body Mass Index Calculated 27.98 kg/m2 Body Surface Area Calculated 1.79 m2 :14 Temperature 98.4 f Comments: Method: Oral Pulse 77 /min Comments: Pattern: Regular Respiration Rate 16 /min Comments: Pattern: Unlabored O2 SAT 98 % Comments: Room air BP Systolic 140 mm[Hg] Comments: Patient Position: Sitting; Cuff Location: Left Arm; Cuff Size: Standard BP Diastolic 80 mm[Hg] Comments: Patient Position: Sitting; Cuff Location: Left Arm; Cuff Size: Standard Weight 162 lb Height 64 in Body Mass Index Calculated 27.81 kg/m2 Body Surface Area Calculated 1.79 m2 :10 Temperature 98.9 f Comments: Method: Oral Pulse 76 /min Comments: Pattern: Regular Respiration Rate 20 /min Comments: Pattern: Unlabored BP Systolic 126 mm[Hg] Comments: Patient Position: Sitting; Cuff Location: Left Arm; Cuff Size: Standard BP Diastolic 84 mm[Hg] Comments: Patient Position: Sitting; Cuff Location: Left Arm; Cuff Size: Standard Weight 162 lb Height 64 in Body Mass Index Calculated 27.81 kg/m2 Body Surface Area Calculated 1.79 m2 :10 Temperature 97.2 f Comments: Method: Oral Pulse 76 /min Comments: Pattern: Regular Respiration Rate 20 /min Comments: Pattern: Unlabored BP Systolic 142 mm[Hg] Comments: Patient Position: Sitting; Cuff Location: Left Arm; Cuff Size: Standard BP Diastolic 80 mm[Hg] Comments: Patient Position: Sitting; Cuff Location: Left Arm; Cuff Size: Standard Weight 162.25 lb Height 64 in Body Mass Index Calculated 27.85 kg/m2 Body Surface Area Calculated 1.79 m2 :44 Temperature 97.2 f Comments: Method: Oral Pulse 84 /min Comments: Pattern: Regular Respiration Rate 20 /min Comments: Pattern: Unlabored BP Systolic 142 mm[Hg] Comments: Patient Position: Sitting; Cuff Location: Right Arm; Cuff Size: Standard BP Diastolic 84 mm[Hg] Comments: Patient Position: Sitting; Cuff Location: Right Arm; Cuff Size: Standard Weight 162.125 lb Height 64 in Body Mass Index Calculated 27.83 kg/m2 Body Surface Area Calculated 1.79 m2 :57 Temperature 98.7 f Comments: Method: Oral Pulse 84 /min Comments: Pattern: Regular Respiration Rate 16 /min Comments: Pattern: Unlabored BP Systolic 130 mm[Hg] Comments: Patient Position: Sitting; Cuff Location: Left Arm; Cuff Size: Large BP Diastolic 82 mm[Hg] Comments: Patient Position: Sitting; Cuff Location: Left Arm; Cuff Size: Large Weight 163 lb Height 64 in Body Mass Index Calculated 27.98 kg/m2 Body Surface Area Calculated 1.79 m2 :02 Temperature 99.2 f Comments: Method: Oral Pulse 84 /min Comments: Pattern: Regular Respiration Rate 18 /min O2 SAT 94 % Comments: Room air BP Systolic 130 mm[Hg] Comments: Patient Position: Sitting; Cuff Location: Left Arm; Cuff Size: Standard BP Diastolic 86 mm[Hg] Comments: Patient Position: Sitting; Cuff Location: Left Arm; Cuff Size: Standard Weight 161 lb Height 64 in Body Mass Index Calculated 27.64 kg/m2 Body Surface Area Calculated 1.78 m2 :21 Temperature 97.8 f Pulse 72 /min Comments: Pattern: Regular Respiration Rate 18 /min BP Systolic 120 mm[Hg] Comments: Patient Position: Supine; Cuff Location: Right Arm; Cuff Size: Large BP Diastolic 84 mm[Hg] Comments: Patient Position: Supine; Cuff Location: Right Arm; Cuff Size: Large Weight 161 lb Height 64 in Body Mass Index Calculated 27.64 kg/m2 Body Surface Area Calculated 1.78 m2 :04 Temperature 98.4 f Comments: Method: Oral Pulse 60 /min Comments: Pattern: Regular Respiration Rate 16 /min Comments: Pattern: Unlabored BP Systolic 122 mm[Hg] Comments: Patient Position: Sitting; Cuff Location: Left Arm; Cuff Size: Standard BP Diastolic 70 mm[Hg] Comments: Patient Position: Sitting; Cuff Location: Left Arm; Cuff Size: Standard Weight 161.375 lb Height 64 in Body Mass Index Calculated 27.7 kg/m2 Body Surface Area Calculated 1.79 m2 :24 Temperature 98.5 f Comments: Method: Oral Pulse 68 /min Comments: Pattern: Regular Respiration Rate 20 /min Comments: Pattern: Unlabored BP Systolic 138 mm[Hg] Comments: Patient Position: Sitting; Cuff Location: Left Arm; Cuff Size: Standard BP Diastolic 82 mm[Hg] Comments: Patient Position: Sitting; Cuff Location: Left Arm; Cuff Size: Standard Weight 159.3125 lb Height 64 in Body Mass Index Calculated 27.35 kg/m2 Body Surface Area Calculated 1.78 m2 :48 Temperature 97.5 f Comments: Method: Oral Pulse 80 /min Comments: Pattern: Regular Respiration Rate 16 /min Comments: Pattern: Unlabored BP Systolic 120 mm[Hg] Comments: Patient Position: Sitting; Cuff Location: Left Arm; Cuff Size: Standard BP Diastolic 78 mm[Hg] Comments: Patient Position: Sitting; Cuff Location: Left Arm; Cuff Size: Standard Weight 162.5 lb Height 64 in Body Mass Index Calculated 27.89 kg/m2 Body Surface Area Calculated 1.79 m2 :41 Temperature 97.3 f Comments: Method: Oral Pulse 82 /min Comments: Pattern: Regular Respiration Rate 17 /min Comments: Pattern: Unlabored O2 SAT 95 % Comments: Room air BP Systolic 130 mm[Hg] Comments: Patient Position: Sitting; Cuff Location: Left Arm; Cuff Size: Standard BP Diastolic 74 mm[Hg] Comments: Patient Position: Sitting; Cuff Location: Left Arm; Cuff Size: Standard Weight 162.5 lb Height 64 in Body Mass Index Calculated 27.89 kg/m2 Body Surface Area Calculated 1.79 m2 :01 O2 SAT 95 % Comments: Room air :58 Temperature 97.3 f Comments: Method: Oral Pulse 64 /min Comments: Pattern: Regular Respiration Rate 16 /min Comments: Pattern: Unlabored BP Systolic 142 mm[Hg] Comments: Patient Position: Sitting; Cuff Location: Left Arm; Cuff Size: Standard BP Diastolic 78 mm[Hg] Comments: Patient Position: Sitting; Cuff Location: Left Arm; Cuff Size: Standard Weight 162.5 lb Height 64 in Body Mass Index Calculated 27.89 kg/m2 Body Surface Area Calculated 1.79 m2 :37 Temperature 98.1 f Comments: Method: Oral Pulse 94 /min Comments: Pattern: Regular Respiration Rate 16 /min Comments: Pattern: Unlabored O2 SAT 95 % Comments: Room air BP Systolic 118 mm[Hg] Comments: Patient Position: Sitting; Cuff Location: Left Arm; Cuff Size: Standard BP Diastolic 84 mm[Hg] Comments: Patient Position: Sitting; Cuff Location: Left Arm; Cuff Size: Standard :14 Pulse 72 /min Comments: Pattern: Regular Respiration Rate 20 /min Comments: Pattern: Unlabored BP Systolic 136 mm[Hg] Comments: Patient Position: Sitting; Cuff Location: Left Arm; Cuff Size: Standard BP Diastolic 80 mm[Hg] Comments: Patient Position: Sitting; Cuff Location: Left Arm; Cuff Size: Standard Weight 164.5 lb Height 64 in Body Mass Index Calculated 28.24 kg/m2 Body Surface Area Calculated 1.8 m2 :59 Pulse 80 /min Comments: Pattern: Regular Respiration Rate 20 /min Comments: Pattern: Unlabored BP Systolic 142 mm[Hg] Comments: Patient Position: Sitting; Cuff Location: Left Arm; Cuff Size: Large BP Diastolic 82 mm[Hg] Comments: Patient Position: Sitting; Cuff Location: Left Arm; Cuff Size: Large Weight 164.4375 lb Height 64 in Body Mass Index Calculated 28.23 kg/m2 Body Surface Area Calculated 1.8 m2 :44 Pulse 60 /min Comments: Pattern: Regular Respiration Rate 20 /min Comments: Pattern: Unlabored BP Systolic 128 mm[Hg] Comments: Patient Position: Sitting; Cuff Location: Left Arm; Cuff Size: Standard BP Diastolic 80 mm[Hg] Comments: Patient Position: Sitting; Cuff Location: Left Arm; Cuff Size: Standard Weight 164.4375 lb Height 64 in Body Mass Index Calculated 28.23 kg/m2 Body Surface Area Calculated 1.8 m2 :57 Temperature 97.1 f Comments: Method: Oral Pulse 80 /min Comments: Pattern: Regular Respiration Rate 20 /min Comments: Pattern: Unlabored BP Systolic 128 mm[Hg] Comments: Patient Position: Sitting; Cuff Location: Left Arm; Cuff Size: Large BP Diastolic 80 mm[Hg] Comments: Patient Position: Sitting; Cuff Location: Left Arm; Cuff Size: Large Weight 159.125 lb Height 64 in Body Mass Index Calculated 27.31 kg/m2 Body Surface Area Calculated 1.78 m2 :59 Pulse 72 /min Comments: Pattern: Regular Respiration Rate 20 /min Comments: Pattern: Unlabored BP Systolic 122 mm[Hg] Comments: Patient Position: Sitting; Cuff Location: Left Arm; Cuff Size: Large BP Diastolic 70 mm[Hg] Comments: Patient Position: Sitting; Cuff Location: Left Arm; Cuff Size: Large Weight 159.125 lb Height 64 in Body Mass Index Calculated 27.31 kg/m2 Body Surface Area Calculated 1.78 m2 Head Circumference 0.00 cm :14 Temperature 98.1 f Comments: Method: Oral Pulse 74 /min Comments: Pattern: Regular Respiration Rate 16 /min Comments: Pattern: Unlabored BP Systolic 122 mm[Hg] Comments: Patient Position: Sitting; Cuff Location: Left Arm; Cuff Size: Standard BP Diastolic 84 mm[Hg] Comments: Patient Position: Sitting; Cuff Location: Left Arm; Cuff Size: Standard Weight 159 lb Height 0 in Head Circumference 0.00 cm :10 Temperature 98.3 f Comments: Method: Oral Pulse 87 /min Comments: Pattern: Regular Respiration Rate 18 /min Comments: Pattern: Unlabored O2 SAT 97 % Comments: Room air BP Systolic 116 mm[Hg] Comments: Patient Position: Sitting; Cuff Location: Left Arm; Cuff Size: Standard BP Diastolic 76 mm[Hg] Comments: Patient Position: Sitting; Cuff Location: Left Arm; Cuff Size: Standard Weight 159.5 lb Height 0 in Head Circumference 0.00 cm :07 Temperature 98.3 f Comments: Method: Oral Pulse 72 /min Comments: Pattern: Regular Respiration Rate 16 /min Comments: Pattern: Unlabored BP Systolic 118 mm[Hg] Comments: Patient Position: Sitting; Cuff Location: Left Arm; Cuff Size: Large BP Diastolic 70 mm[Hg] Comments: Patient Position: Sitting; Cuff Location: Left Arm; Cuff Size: Large Weight 165.0625 lb Height 64 in Body Mass Index Calculated 28.33 kg/m2 Body Surface Area Calculated 1.8 m2 Head Circumference 0.00 cm :59 Pulse 60 /min Comments: Pattern: Regular Respiration Rate 16 /min Comments: Pattern: Unlabored BP Systolic 124 mm[Hg] Comments: Patient Position: Sitting; Cuff Location: Left Arm; Cuff Size: Standard BP Diastolic 68 mm[Hg] Comments: Patient Position: Sitting; Cuff Location: Left Arm; Cuff Size: Standard Weight 165.0625 lb Height 64 in Body Mass Index Calculated 28.33 kg/m2 Body Surface Area Calculated 1.8 m2 Head Circumference 0.00 cm :27 Pulse 88 /min Comments: Pattern: Regular Respiration Rate 16 /min Comments: Pattern: Unlabored BP Systolic 138 mm[Hg] Comments: Patient Position: Sitting; Cuff Location: Right Arm; Cuff Size: Standard BP Diastolic 80 mm[Hg] Comments: Patient Position: Sitting; Cuff Location: Right Arm; Cuff Size: Standard Weight 158.375 lb Height 64 in Body Mass Index Calculated 27.18 kg/m2 Body Surface Area Calculated 1.77 m2 Head Circumference 0.00 cm :18 Pulse 88 /min Comments: Pattern: Regular Respiration Rate 20 /min Comments: Pattern: Unlabored BP Systolic 124 mm[Hg] Comments: Patient Position: Sitting; Cuff Location: Left Arm; Cuff Size: Standard BP Diastolic 82 mm[Hg] Comments: Patient Position: Sitting; Cuff Location: Left Arm; Cuff Size: Standard Weight 160.375 lb Height 64 in Body Mass Index Calculated 27.53 kg/m2 Body Surface Area Calculated 1.78 m2 Head Circumference 0.00 cm :40 Temperature 97.8 f Comments: Method: Oral Pulse 74 /min Comments: Pattern: Regular Respiration Rate 17 /min Comments: Pattern: Unlabored BP Systolic 124 mm[Hg] Comments: Patient Position: Sitting; Cuff Location: Left Arm; Cuff Size: Standard BP Diastolic 62 mm[Hg] Comments: Patient Position: Sitting; Cuff Location: Left Arm; Cuff Size: Standard Weight 164.5625 lb Height 64 in Body Mass Index Calculated 28.25 kg/m2 Body Surface Area Calculated 1.8 m2 Head Circumference 0.00 cm :02 Temperature 98.8 f Comments: Method: Undefined Pulse 72 /min Comments: Pattern: Regular Respiration Rate 16 /min Comments: Pattern: Undefined BP Systolic 128 mm[Hg] Comments: Patient Position: Undefined; Cuff Location: Undefined; Cuff Size: Undefined BP Diastolic 64 mm[Hg] Comments: Patient Position: Undefined; Cuff Location: Undefined; Cuff Size: Undefined Weight 164.5625 lb Height 64 in Body Mass Index Calculated 28.25 kg/m2 Body Surface Area Calculated 1.8 m2 Head Circumference 0.00 cm Results Date Description Value Details [id number]-Hmu-[id number]:11 Microscopic Examination Comments: PATIENT WAS FASTINGPERFORMED BY: Tekmi Oonmwo4222 [facility] [id number] Bacteria Few (Normal) Mucus Threads Present (Normal) Cast Type Hyaline casts (Normal) Casts Present {/lpf} (Abnormal) Epithelial Cells (non renal) 0-10 {/hpf} (Normal) Range: 0 - 10 RBC 3-10 {/hpf} (Abnormal) Range: 0 - 2 WBC 0-5 {/hpf} (Normal) Range: 0 - 5 46-Zmc-292130:11 MICROALBUMIN: CREATININE RATIO Comments: PATIENT WAS FASTINGPERFORMED BY: [facility]miEast Mountain HospitalRkptwv6775 [facility] [id number] (75312) AND (42474) Alb/Creat Ratio 6.7 {mg/g_creat} (Normal) Range: 0.0-30.0 Albumin, Urine 10.2 ug/mL (Normal) Creatinine, Urine 151.2 mg/dL (Normal) 57-Ehx-610556:11 CALCIFEDIOL (02480) Comments: PATIENT WAS FASTINGPERFORMED BY: Tekmi Cdupdt1817 [facility] [id number] Vitamin D, 25-Hydroxy 64.0 ng/mL (Normal) Range: 30.0-100.0 Comments: Vitamin D deficiency has been defined by the [place] [facility] and an Endocrine Society practice guideline as alevel of serum 25-OH vitamin D less than 20 ng/mL (1,2).The Endocrine Society went on to further define vitamin Dinsufficiency as a level between 21 and 29 ng/mL (2).1. IOM ([place] of [employer]). 2010. Dietary reference intakes for calcium and D. [place]: The National Academies Press.2. Maria De Jesus MF, Walter REDDY, Patrick SENIOR, et al. Evaluation, treatment, and prevention of vitamin D deficiency: an Endocrine Society clinical practice guideline. JCEM. 2010; 96(7):1911-30. 29-Qjk-[id number]:11 URINALYSIS (70022) Comments: PATIENT WAS FASTINGPERFORMED BY: dooyooUNM Cancer CenterZtoxyr7280 [facility] [id number] Microscopic Examination See below: (Normal) Comments: Microscopic was indicated and was performed. Nitrite, Urine Negative (Normal) Urobilinogen,Semi-Qn 0.2 mg/dL (Normal) Range: 0.2-1.0 Bilirubin Negative (Normal) Occult Blood Trace (Abnormal) Ketones Negative (Normal) Glucose Negative (Normal) Protein Negative (Normal) WBC Esterase Trace (Abnormal) Appearance Clear (Normal) Urine-Color Yellow (Normal) pH 6.5 (Normal) Range: 5.0-7.5 Specific [place] 1.018 (Normal) Range: 1.005-1.030 21-Jug-[id number]:11 TSH (THYROID STIMULATING Comments: PATIENT WAS FASTINGPERFORMED BY: [employer] [place] [employer] [facility] [id number] HORMONE) (44665) TSH 2.600 {uIU/mL} (Normal) Range: 0.450-4.500 93-Lbz-617629:11 CBC & PLATELETS (AUTO) Comments: PATIENT WAS FASTINGPERFORMED BY: [employer] [place] [employer] [facility] [id number] (42393) Platelets 251 {x10E3/uL} (Normal) Range: 150-379 RDW 14.3 % (Normal) Range: 12.3-15.4 MCHC 34.3 g/dL (Normal) Range: 31.5-35.7 MCH 31.5 pg (Normal) Range: 26.6-33.0 MCV 92 fL (Normal) Range: 79-97 Hematocrit 44.6 % (Normal) Range: 34.0-46.6 Hemoglobin 15.3 g/dL (Normal) Range: 11.1-15.9 RBC 4.85 {x10E6/uL} (Normal) Range: 3.77-5.28 WBC 6.9 {x10E3/uL} (Normal) Range: 3.4-10.8 71-Gwm-524301:11 METABOLIC PANEL, Comments: PATIENT WAS FASTINGPERFORMED BY: [facility]6370 [facility] [id number] Information: [id number] [facility] (41267) ALT (SGPT) 21 [iU]/L (Normal) Range: 0-32 AST (SGOT) 23 [iU]/L (Normal) Range: 0-40 Alkaline Phosphatase 63 [iU]/L (Normal) Range: 39-117 Bilirubin, Total 0.8 mg/dL (Normal) Range: 0.0-1.2 A/G Ratio 1.5 (Normal) Range: 1.2-2.2 Globulin, Total 2.7 g/dL (Normal) Range: 1.5-4.5 Albumin 4.1 g/dL (Normal) Range: 3.5-4.8 Protein, Total 6.8 g/dL (Normal) Range: 6.0-8.5 Calcium 9.5 mg/dL (Normal) Range: 8.7-10.3 Carbon Dioxide, Total 26 mmol/L (Normal) Range: 20-29 Chloride 103 mmol/L (Normal) Range: 96-106 Potassium 4.5 mmol/L (Normal) Range: 3.5-5.2 Sodium 145 mmol/L (Abnormal) Range: 134-144 BUN/Creatinine Ratio 15 (Normal) Range: 12-28 eGFR If Africn Am 76 mL/min/1.73 (Normal) eGFR If NonAfricn Am 66 mL/min/1.73 (Normal) Creatinine 0.87 mg/dL (Normal) Range: 0.57-1.00 BUN 13 mg/dL (Normal) Range: 8-27 Glucose 98 mg/dL (Normal) Range: 65-99 63-Smw-099620:11 LIPID PANEL (54950) Comments: PATIENT WAS FASTINGPERFORMED BY: LabCoEast Mountain HospitalUzysef6309 [facility] [id number] LDL/HDL Ratio 3.2 {ratio} (Normal) Range: 0.0-3.2 Comments: LDL/HDL Ratio Men Women 1/2 Avg.Risk 1.0 1.5 Av g.Risk 3.6 3.2 2X Avg.Risk 6.2 5.0 3X Avg.Risk 8.0 6.1 LDL Cholesterol Calc 129 mg/dL (Abnormal) Range: 0-99 VLDL Cholesterol Juan Manuel 26 mg/dL (Normal) Range: 5-40 HDL Cholesterol 40 mg/dL (Normal) Triglycerides 132 mg/dL (Normal) Range: 0-149 Cholesterol, Total 195 mg/dL (Normal) Range: 100-199 46-Ndh-084300:35 Basic Metabolic Profile (BMP) Comments: [facility] [address] [place], [place], [id number] GAP 9 (Normal) Range: 5-15 CO2 24.0 mmol/L (Normal) Range: 21.0-32.0 CL 107 mmol/L (Normal) Range: 98-107 K 3.6 mmol/L (Normal) Range: 3.5-5.1 NA 140 mmol/L (Normal) Range: 136-145 CA 8.5 mg/dL (Normal) Range: 8.5-10.1 BUN/CRE 16.9 {RATIO} (Normal) Range: 10-20 Estimated CRCL 44.41 ml/min (Normal) EST GFR - AA 94 mL/min (Normal) Comments: GFR Calc EST GFR 78 mL/min (Normal) Comments: Non- GFR Calc CREAT,SERUM 0.77 mg/dL (Normal) Range: 0.55-1.02 Comments: The validity of the calculated GFR AND GFRAA in patients over70 years has not been determined. Clinical correlation isessential. BUN 13 mg/dL (Normal) Range: 7-18 GLU 118 mg/dL (Abnormal) Range: 74-106 Comments: Fasting Glucose result from 100 to 125 mg/dLsuggests IMPAIRED HOMEOSTASIS per A.D.A. criteria.Please note revised GLUCOSE reference range /02/2018. 50-Qzv-901035:35 CBC W/Diff, Automated Comments: [facility] [address] [place], [place], [address] Absolute Lymph 1.29 {X10_3/ul} (Normal) Range: 0.83-4.51 Absolute Neut 5.5 {X10_3/uL} (Normal) Range: 2.0-7.7 IM GRAN % 0.100 % (Normal) Range: 0.0-0.9 Comments: IG% - Immature Granulocytes (promyelocytes, myelocytes andmetamyelocytes) > 1% indicates that a LEFT SHIFT is Present. BASO% 0.1 % (Normal) Range: 0-1 EO% 1.0 % (Normal) Range: 0-5 MONO% 6.0 % (Normal) Range: 0-10 LY% 17.6 % (Abnormal) Range: 19-41 NEUT% 75.2 % (Abnormal) Range: 47-70 MPV 10.0 fL (Normal) Range: 6.2-12.0 PLT 215 K/mm3 (Normal) Range: 150-450 RDW SD 46.9 fL (Abnormal) Range: 35.1-43.9 RDW CV 13.5 % (Normal) Range: 11.6-14.6 MCHC 33.3 {g/gl} (Normal) Range: 32-36 MCH 31.6 pg (Normal) Range: 27.0-32.0 MCV 95.0 fL (Normal) Range: 81-99 HCT 45.7 % (Normal) Range: 37-47 HGB 15.2 g/dL (Abnormal) Range: 12.0-15.0 RBC 4.81 {M/mm3} (Normal) Range: 4.2-5.4 WBC 7.3 K/mm3 (Normal) Range: 4.4-11.0 22-Mor-887663:35 Partial Thromboplast Time Comments: [facility] [address]xef[address] [place], [place], [id number] PTT 27.6 s (Normal) Range: 24.1-36.2 :35 Prothrombin Time w/INR Comments: [facility] [address] [place], [place], [id number] INR 1.2 (Normal) PROTIME 14.9 s (Normal) Range: 11.7-14.9 93-Kpp-880503:40 Microscopic Examination Comments: PATIENT WAS FASTINGPERFORMED BY: MARIA DEL ROSARIO LabCoEast Mountain HospitalBqfiry2361 [facility] [id number] Bacteria Few (Normal) Mucus Threads Present (Normal) Epithelial Cells (non renal) 0-10 {/hpf} (Normal) Range: 0 - 10 RBC 3-10 {/hpf} (Abnormal) Range: 0 - 2 WBC 11-30 {/hpf} (Abnormal) Range: 0 - 5 :40 CALCIFIDIOL (71477) VIT D 25 Comments: PATIENT WAS FASTINGPERFORMED BY: Tekmi Wrqlcd8859 [facility] [id number] Vitamin D, 25-Hydroxy 107.0 ng/mL (Abnormal) Range: 30.0-100.0 Comments: Vitamin D deficiency has been defined by the [facility] and an Endocrine Society practice guideline as alevel of serum 25-OH vitamin D less than 20 ng/mL (1,2).The Endocrine Society went on to further define vitamin Dinsufficiency as a level between 21 and 29 ng/mL (2).1. IOM ([place] of [employer]). 2010. Dietary reference intakes for calcium and D. [place]: The National Academies Press.2. Maria De Jesus MF, Walter [place], Patrick SENIOR, et al. Evaluation, treatment, and prevention of vitamin D deficiency: an Endocrine Society clinical practice guideline. JCEM. 2010; 96(7):1911-30. :40 URINALYSIS, W/ MICRO (57369) Comments: PATIENT WAS FASTINGPERFORMED BY: [employer]6370 [facility] [id number] Microscopic Examination See below: (Normal) Comments: Microscopic was indicated and was performed. Nitrite, Urine Negative (Normal) Urobilinogen,Semi-Qn 0.2 mg/dL (Normal) Range: 0.2-1.0 Bilirubin Negative (Normal) Occult Blood Trace (Abnormal) Ketones Negative (Normal) Glucose Negative (Normal) Protein Negative (Normal) WBC Esterase 2+ (Abnormal) Appearance Clear (Normal) Urine-Color Yellow (Normal) pH 6.5 (Normal) Range: 5.0-7.5 Specific [place] 1.019 (Normal) Range: 1.005-1.030 :40 MICROALBUMIN: CREATININE RATIO Comments: PATIENT WAS FASTINGPERFORMED BY: Tekmi Hmbxdl6037 [facility] [id number] ([id number]) AND (50881) Microalb/Creat Ratio 15.4 {mg/g_creat} (Normal) Range: 0.0-30.0 Microalbumin, Urine 17.1 ug/mL (Normal) Creatinine, Urine 111.4 mg/dL (Normal) 44-Fhr-984227:40 LIPID PANEL (25180) Comments: PATIENT WAS FASTINGPERFORMED BY: [facility] Wwmslj5573 [facility] [id number] LDL/HDL Ratio 2.9 {ratio_units} (Normal) Range: 0.0-3.2 Comments: LDL/HDL Ratio Men Women 1/2 Avg.Risk 1.0 1.5 Av g.Risk 3.6 3.2 2X Avg.Risk 6.2 5.0 3X Avg.Risk 8.0 6.1 LDL Cholesterol Calc 123 mg/dL (Abnormal) Range: 0-99 VLDL Cholesterol Juan Manuel 23 mg/dL (Normal) Range: 5-40 HDL Cholesterol 42 mg/dL (Normal) Triglycerides 115 mg/dL (Normal) Range: 0-149 Cholesterol, Total 188 mg/dL (Normal) Range: 100-199 55-Bxw-781136:43 CBC W/Diff, Automated Comments: [facility] [address] [facility] [place], [place], [id number] Absolute Lymph 2.29 {X10_3/ul} (Normal) Range: 0.83-4.51 Absolute Neut 3.0 {X10_3/uL} (Normal) Range: 2.0-7.7 IM GRAN % 0.200 % (Normal) Range: 0.0-0.9 Comments: IG% - Immature Granulocytes (promyelocytes, myelocytes andmetamyelocytes) > 1% indicates that a LEFT SHIFT is Present. BASO% 0.9 % (Normal) Range: 0-1 EO% 3.9 % (Normal) Range: 0-5 MONO% 11.8 % (Abnormal) Range: 0-10 LY% 36.2 % (Normal) Range: 19-41 NEUT% 47.0 % (Normal) Range: 47-70 MPV 11.0 fL (Normal) Range: 6.2-12.0 PLT 252 K/mm3 (Normal) Range: 150-450 RDW SD 45.7 fL (Abnormal) Range: 35.1-43.9 RDW CV 13.4 % (Normal) Range: 11.6-14.6 MCHC 33.5 {g/gl} (Normal) Range: 32-36 MCH 32.0 pg (Normal) Range: 27.0-32.0 MCV 95.6 fL (Normal) Range: 81-99 HCT 45.7 % (Normal) Range: 37-47 HGB 15.3 g/dL (Abnormal) Range: 12.0-15.0 RBC 4.78 {M/mm3} (Normal) Range: 4.2-5.4 WBC 6.3 K/mm3 (Normal) Range: 4.4-11.0 47-Dfl-016970:43 Comprehensive Metabolic Profil Comments: [facility] [address] [place], [address] GAP 7 (Normal) Range: 5-15 CO2 28.0 mmol/L (Normal) Range: 21.0-32.0 CL 107 mmol/L (Normal) Range: 98-107 K 3.8 mmol/L (Normal) Range: 3.5-5.1 NA 142 mmol/L (Normal) Range: 136-145 T BILI 0.80 mg/dL (Normal) Range: 0.20-1.00 ALT 25 U/L (Normal) Range: 12-78 ALK P 51 U/L (Normal) Range: 45-117 AST 22 U/L (Normal) Range: 15-37 CA 8.8 mg/dL (Normal) Range: 8.5-10.1 A/G 1.0 {RATIO} (Normal) Range: 0.9-2.4 GLOB 3.5 g/dL (Normal) Range: 2.2-4.2 ALB 3.6 g/dL (Normal) Range: 3.4-5.0 Comments: Please note revised Albumin AND Globulin reference rangeeffective 2017. T PROT 7.1 g/dL (Normal) Range: 6.4-8.2 BUN/CRE 20.2 {RATIO} (Abnormal) Range: 10-20 EST GFR - AA 91 mL/min (Normal) Comments: GFR Calc EST GFR 76 mL/min (Normal) Comments: Non- GFR Calc CREAT,SERUM 0.79 mg/dL (Normal) Range: 0.55-1.02 Comments: The validity of the calculated GFR AND GFRAA in patients over70 years has not been determined. Clinical correlation isessential. BUN 16 mg/dL (Normal) Range: 7-18 GLU 87 mg/dL (Normal) Range: 70-110 77-Vna-292559:34 CREATININE FINGERSTICK Comments: [facility] LaboratoryPoint of [address] [place] [address] EGFR WB Test not performed mL/min (Normal) CREATININE WB 1.0 mg/dL (Normal) Range: 0.55-1.02 49-Nvh-57289:28 Rapid Flu (21815 x 2) Comments: neg Influenza A Ag neg a/b (Normal) :32 CBC W/Diff, Automated Comments: [facility] [address] [place], [address] Absolute Lymph 2.39 {X10_3/ul} (Normal) Range: 0.83-4.51 Absolute Neut 3.9 {X10_3/uL} (Normal) Range: 2.0-7.7 IM GRAN % 0.400 % (Normal) Range: 0.0-0.9 Comments: IG% - Immature Granulocytes (promyelocytes, myelocytes andmetamyelocytes) > 1% indicates that a LEFT SHIFT is Present. BASO% 0.7 % (Normal) Range: 0-1 EO% 3.1 % (Normal) Range: 0-5 MONO% 9.9 % (Normal) Range: 0-10 LY% 32.6 % (Normal) Range: 19-41 NEUT% 53.3 % (Normal) Range: 47-70 MPV 10.8 fL (Normal) Range: 6.2-12.0 PLT 219 K/mm3 (Normal) Range: 150-450 RDW SD 46.0 fL (Abnormal) Range: 35.1-43.9 RDW CV 13.8 % (Normal) Range: 11.6-14.6 MCHC 33.1 {g/gl} (Normal) Range: 32-36 MCH 31.3 pg (Normal) Range: 27.0-32.0 MCV 94.5 fL (Normal) Range: 81-99 HCT 44.7 % (Normal) Range: 37-47 HGB 14.8 g/dL (Normal) Range: 12.0-15.0 RBC 4.73 {M/mm3} (Normal) Range: 4.2-5.4 WBC 7.3 K/mm3 (Normal) Range: 4.4-11.0 :32 Comprehensive Metabolic Profil Comments: DR BRITO ONLY ORDERED [facility] [address] [place], [place], [id number] GAP 8 (Normal) Range: 5-15 CO2 27.0 mmol/L (Normal) Range: 21.0-32.0 CL 105 mmol/L (Normal) Range: 98-107 K 3.7 mmol/L (Normal) Range: 3.5-5.1 NA 140 mmol/L (Normal) Range: 136-145 T BILI 1.00 mg/dL (Normal) Range: 0.20-1.00 ALT 25 U/L (Normal) Range: 12-78 ALK P 55 U/L (Normal) Range: 45-117 AST 19 U/L (Normal) Range: 15-37 CA 8.6 mg/dL (Normal) Range: 8.5-10.1 A/G 0.9 {RATIO} (Normal) Range: 0.9-2.4 GLOB 3.6 g/dL (Abnormal) Range: 2.3-3.5 ALB 3.4 g/dL (Normal) Range: 3.4-5.0 T PROT 7.0 g/dL (Normal) Range: 6.4-8.2 BUN/CRE 14.1 {RATIO} (Normal) Range: 10-20 EST GFR - AA 84 mL/min (Normal) Comments: GFR Calc EST GFR 69 mL/min (Normal) Comments: Non- GFR Calc CREAT,SERUM 0.85 mg/dL (Normal) Range: 0.55-1.02 Comments: The validity of the calculated GFR AND GFRAA in patients over70 years has not been determined. Clinical correlation isessential. BUN 12 mg/dL (Normal) Range: 7-18 GLU 91 mg/dL (Normal) Range: 70-110 :32 Lipid Profile Comments: DR ALISHA ANAYA ORDERED [facility] [address] [place], [place], [address] VLDL 17 mg/dL (Normal) Range: 5-40 LDL 111 mg/dL (Normal) Range: 0-130 HDL 44 mg/dL (Normal) Comments: The drugs N-Acetylcysteine and Metamizole may falsely deressthis assay. Reference Range HDL <40 mg/dL Low HDL Cholesterol HDL >or= 60 mg/dL High HDL Cholesterol TRIG 85 mg/dL (Normal) Comments: The drugs N-Acetylcysteine and Metamizole may falsely deressthis assay.Serum Triglycerides Reference Interval Normal <150 mg/dL Borderline high 150 - 199 mg/dL High 200 - 499 mg/dL Very High > or = 500 mg/dL CHOL 172 mg/dL (Normal) Comments: <200 mg/dL Desirable 200-240 mg/dL Borderline >240 mg/dL High Risk :32 Microalb:Creat Ratio,Random UR Comments: [facility] [address] [facility] [address] [place], [place], [id number] MALB:CREAT 8.9 {mg/g_CRE} (Normal) MICROALBUMIN,UR 6.6 mg/L (Normal) UR CREAT 74.00 mg/dL (Normal) :32 Urinalysis, Complete Comments: How was Urine Obtained? CLEAN [facility] [address] [facility] [place], [place], [id number] MUCUS, URINE 0 SEEN {/hpf} (Normal) BACTERIA 0 SEEN {/hpf} (Normal) SQUAM EPI 0-5 SEEN {/hpf} (Normal) Range: 5-10 RBC-UA 0-5 SEEN {/hpf} (Normal) Range: 0-5 WBC 0-5 SEEN {/hpf} (Normal) Range: 0-5 LEUK ESTERASE 25 /ul (Abnormal) OCCULT BLOOD-UR 25 /ul (Abnormal) NITRITE UR Negative (Normal) UROBILI Normal mg/dL (Normal) PROT DIPSTX Negative mg/dL (Normal) pH UR 6.0 (Normal) Range: 5.0 - 8.0 SP.GR. DIPSTX 1.015 (Normal) Range: 1.002-1.030 KETONE UR Negative mg/dL (Normal) BILIRUBIN URINE Negative mg/dL (Normal) GLUCOSE, UR Normal mg/dL (Normal) CLARITY Sl. Cloudy (Normal) COLOR Yellow (Normal) :32 Vitamin D,25 Hydroxy Comments: [facility] [address] [place], [address] Vitamin D 25-OH 51.0 ng/mL (Normal) Comments: Vitamin D 25(OH) Status Range Deficiency <20 ng/mL (50nmol/L) Insuffciency 20 - 30 ng/mL (50 - 75 nmol/L) Sufficiency 30 - 100 ng/mL (75 - 250 nmol/L) Toxicity >100 ng/mL (>250 nmol/L) 0-Rpl-529023:59 Cytology, Body Fluid / CSF Comments: Specimen Source: [facility] [address] [place], [address] CYTOLOGY,BF/CSF SEE PATHOLOGY REPORT Comments: Specimen submitted to Anatomical Pathology Department [facility]. (Normal) 89-Ync-94325:00 CYTOSPIN ON FLUID See Note (Normal) Comments: [facility] [address] [place], [address] Comments: Patient: LEYLA RIOJAS : 1945 (70/F) Acct Num: [id number] Phys: Lu GUNTER,Benedicto Unit Num: [id number] Loc: LAB Specimen: [id number] Received: 02/27/16 - 1202 Spec Type: C YSPIN FL TISSUES TISSUES: COMMENT Clinical correlation and appropriate follow up are necessary. CULTURE RESULTS No results available. CYTOLOGY GROSS Received is 15 ml of bright yellow cloudy fluid labeled with the patient's name and and designated per the requisition as urine. Submitted for cytology preparation. / Jose Antonio 02/27/16 TC:2 CPT: 58021 CYTOLOGY S TUDY Slides are reviewed. The specimen consists of benign squamous cells, squamous metaplastic cells, urothelial cells and neutrophils. DIAGNOSIS CYTOLOGY Urine for cytology (cytospin): Negative for malignant cells. Acute inflammation. JOHANNE:aleshia 02/28/16 HEADER OPERATION: Not noted PRE-OP DIAGNOSIS: Hematuria TISSUE SUBMITTED: Urine cytology Signed Samuel Griffith 02/28/16 <signature on file> 55-Owz-87923:13 Basic Metabolic Profile (BMP) Comments: [facility] [address] [place], [address] GAP 4 (Abnormal) Range: 5-15 CO2 29.0 mmol/L (Normal) Range: 21.0-32.0 CL 110 mmol/L (Abnormal) Range: 98-107 K 3.3 mmol/L (Abnormal) Range: 3.5-5.1 NA 143 mmol/L (Normal) Range: 136-145 CA 8.1 mg/dL (Abnormal) Range: 8.5-10.1 BUN/CRE 12.6 {RATIO} (Normal) Range: 10-20 Estimated CRCL 48.17 ml/min (Normal) EST GFR - AA 74 mL/min (Normal) Comments: GFR Calc EST GFR 61 mL/min (Normal) Comments: Non- GFR Calc CREAT,SERUM 0.95 mg/dL (Normal) Range: 0.55-1.20 Comments: The validity of the calculated GFR AND GFRAA in patients over70 years has not been determined. Clinical correlation isessential. BUN 12 mg/dL (Normal) Range: 7-18 GLU 126 mg/dL (Abnormal) Range: 70-110 Comments: Fasting Glucose result greater than or equal to 126 mg/dLsuggests DIABETES MELLITUS per A.D.A. criteria. :13 CBC W/Diff, Automated Comments: [facility] [address] [place], [place], [phone] Absolute Lymph 1.27 {X10_3/ul} (Normal) Range: 0.83-4.51 Absolute Neut 4.4 {X10_3/uL} (Normal) Range: 2.0-7.7 IM GRAN % 0.200 % (Normal) Range: 0.0-0.9 Comments: IG% - Immature Granulocytes (promyelocytes, myelocytes andmetamyelocytes) > 1% indicates that a LEFT SHIFT is Present. BASO% 0.3 % (Normal) Range: 0-1 EO% 0.3 % (Normal) Range: 0-5 MONO% 9.1 % (Normal) Range: 0-10 LY% 20.0 % (Normal) Range: 19-41 NEUT% 70.1 % (Abnormal) Range: 47-70 MPV 10.5 fL (Normal) Range: 6.2-12.0 PLT 188 K/mm3 (Normal) Range: 150-450 RDW SD 48.4 fL (Abnormal) Range: 35.1-43.9 RDW CV 14.2 % (Normal) Range: 11.6-14.6 MCHC 33.4 {g/gl} (Normal) Range: 32-36 MCH 32.0 pg (Normal) Range: 27.0-32.0 MCV 95.9 fL (Normal) Range: 81-99 HCT 47.0 % (Normal) Range: 37-47 HGB 15.7 g/dL (Abnormal) Range: 12.0-15.0 RBC 4.90 {M/mm3} (Normal) Range: 4.2-5.4 WBC 6.3 K/mm3 (Normal) Range: 4.4-11.0 :36 CBC-Complete Blood Cnt No Diff Comments: [facility] [address] [facility] [place], [place], [id number] MPV 10.9 fL (Normal) Range: 6.2-12.0 PLT 245 K/mm3 (Normal) Range: 150-450 RDW SD 48.4 fL (Abnormal) Range: 35.1-43.9 RDW CV 13.7 % (Normal) Range: 11.6-14.6 MCHC 32.0 {g/gl} (Normal) Range: 32-36 MCH 30.9 pg (Normal) Range: 27.0-32.0 MCV 96.5 fL (Normal) Range: 81-99 HCT 47.2 % (Abnormal) Range: 37-47 HGB 15.1 g/dL (Abnormal) Range: 12.0-15.0 RBC 4.89 {M/mm3} (Normal) Range: 4.2-5.4 WBC 8.6 K/mm3 (Normal) Range: 4.4-11.0 :36 Comprehensive Metabolic Profil Comments: [facility] [address] [facility] [address] [place], [place], [phone]) GAP 5 (Normal) Range: 5-15 CO2 30.0 mmol/L (Normal) Range: 21.0-32.0 CL 109 mmol/L (Abnormal) Range: 98-107 K 3.9 mmol/L (Normal) Range: 3.5-5.1 NA 144 mmol/L (Normal) Range: 136-145 T BILI 0.50 mg/dL (Normal) Range: 0.20-1.00 ALT 26 U/L (Normal) Range: 12-78 ALK P 49 U/L (Abnormal) Range: 50-136 AST 21 U/L (Normal) Range: 15-37 CA 8.6 mg/dL (Normal) Range: 8.5-10.1 A/G 0.9 {RATIO} (Normal) Range: 0.9-2.4 GLOB 3.7 g/dL (Abnormal) Range: 2.3-3.5 ALB 3.5 g/dL (Normal) Range: 3.4-5.0 T PROT 7.2 g/dL (Normal) Range: 6.4-8.2 BUN/CRE 15.3 {RATIO} (Normal) Range: 10-20 EST GFR - AA 84 mL/min (Normal) Comments: GFR Calc EST GFR 70 mL/min (Normal) Comments: Non- GFR Calc CREAT,SERUM 0.85 mg/dL (Normal) Range: 0.55-1.20 Comments: The validity of the calculated GFR AND GFRAA in patients over70 years has not been determined. Clinical correlation isessential. BUN 13 mg/dL (Normal) Range: 7-18 GLU 105 mg/dL (Normal) Range: 70-110 :36 CRP Comments: [facility] [address] [place], [place], [id number] C-REACTIVE PROT 4.00 mg/L (Abnormal) Range: 0.0-3.0 Comments: C-Reactive Protein (CRP) provides useful information for thediagnosis, therapy and monitoring of inflammatory processesand associated diseases. For the evaluation of Relative Riskfor Cardiovascular Dise ase, a High Sensitivity CRP (HSCRP)should be ordered. :36 Erythrocyte Sed Rate Comments: [facility] [id number] [place], [address] SED RATE 4 mm/h (Normal) Range: 0-30 13-Raw-877242:09 CALCIFEDIOL (57388) Comments: PATIENT NOT FASTINGPERFORMED BY: [facility] [facility] [id number] Information: [id number] Vitamin D, 25-Hydroxy 25.9 ng/mL (Abnormal) Range: 30.0-100.0 Comments: Vitamin D deficiency has been defined by the [place] [employer] and an Endocrine Society practice guideline as alevel of serum 25-OH vitamin D less than 20 ng/mL (1,2).The Endocrine Society went on to further define vitamin Dinsufficiency as a level between 21 and 29 ng/mL (2).1. IOM ([place] [employer]). 2010. Dietary reference intakes for calcium and D. [place]: The National Academies Press.2. Maria De Jesus MF, Walter REDDY, Patrick SENIOR, et al. Evaluation, treatment, and prevention of vitamin D deficiency: an Endocrine Society clinical practice guideline. JCEM. 2010; 96(7):1911-30. :04 Microscopic Examination Comments: PATIENT WAS FASTINGPERFORMED BY: [facility] [id number] [facility] [id number] Bacteria Few (Normal) Mucus Threads Present (Normal) Crystal Type Amorphous Sediment (Normal) Comments: Calcium Oxalate Crystals Present (Abnormal) Epithelial Cells (non renal) 0-10 {/hpf} (Normal) Range: 0 - 10 RBC None seen {/hpf} (Normal) Range: 0 - 2 WBC 0-5 {/hpf} (Normal) Range: 0 - 5 :47 Urinalysis, Office ([id number]) UA - LEUKOCYTE ESTERASE Trace (Normal) UA - NITRITE Negative (Normal) URINE UROBILINGN CONCHA TIMED Normal mg/dL (Normal) UA - PROTEIN Negative mg/dL (Normal) UA - PH 6.5 (Normal) UA - BLOOD Hemolyzed Trace (Normal) UA - SPECIFIC GRAVITY 1.005 (Normal) UA - KETONES Negative mg/dL (Normal) UA - BILIRUBIN Negative (Normal) UA - GLUCOSE Negative (Normal) :56 Basic Metabolic Profile (BMP) Comments: Test performed at:[facility] [address] [place] [address] GAP 7 (Normal) Range: 5-15 CO2 26.0 mmol/L (Normal) Range: 21.0-32.0 CL 108 mmol/L (Abnormal) Range: 98-107 K 3.8 mmol/L (Normal) Range: 3.5-5.1 NA 141 mmol/L (Normal) Range: 136-145 CA 8.8 mg/dL (Normal) Range: 8.5-10.1 BUN/CRE 16.3 {RATIO} (Normal) Range: 10-20 CREAT,SERUM 0.86 mg/dL (Normal) Range: 0.55-1.20 Comments: Please note revised CREATININE reference range jqheupmks35/22/2015. BUN 14 mg/dL (Normal) Range: 7-18 GLU 88 mg/dL (Normal) Range: 70-110 :56 CBC-Complete Blood Cnt No Diff Comments: Test performed at:[facility] [address] [place] [address] [id number] MPV 12.1 fL (Abnormal) Range: 6.2-12.0 PLT 190 K/mm3 (Normal) Range: 150-450 RDW SD 49.1 fL (Abnormal) Range: 35.1-43.9 RDW CV 14.2 % (Normal) Range: 11.6-14.6 MCHC 31.6 {g/gl} (Abnormal) Range: 32-36 MCH 30.2 pg (Normal) Range: 27.0-32.0 MCV 95.4 fL (Normal) Range: 81-99 HCT 44.0 % (Normal) Range: 37-47 HGB 13.9 g/dL (Normal) Range: 12.0-15.0 RBC 4.61 {M/mm3} (Normal) Range: 4.2-5.4 WBC 7.6 K/mm3 (Normal) Range: 4.4-11.0 :04 TSH ([id number]) Comments: PATIENT WAS FASTINGPERFORMED BY: [facility] Aeyezc4481 [facility] [id number] TSH 2.500 {uIU/mL} (Normal) Range: 0.450-4.500 :04 URINALYSIS, W/ MICRO ([id number]) Comments: PATIENT WAS FASTINGPERFORMED BY: Wylio70 [facility] [id number] Microscopic Examination See below: (Normal) Comments: Microscopic was indicated and was performed. Microscopic Examination MICRON (Normal) Comments: Microscopic follows if indicated. Nitrite, Urine Negative (Normal) Urobilinogen,Semi-Qn 0.2 mg/dL (Normal) Range: 0.0-1.9 Bilirubin Negative (Normal) Occult Blood Negative (Normal) Ketones Negative (Normal) Glucose Negative (Normal) Protein Negative (Normal) WBC Esterase Negative (Normal) Appearance Cloudy (Abnormal) Urine-Color Yellow (Normal) pH 6.0 (Normal) Range: 5.0-7.5 Specific [place] 1.020 (Normal) Range: 1.005-1.030 :04 MICROALBUMIN: CREATININE RATIO Comments: PATIENT WAS FASTINGPERFORMED BY: Wylio70 [facility] [id number] ([id number]) AND ([id number]) Microalb/Creat Ratio 7.1 {mg/g_creat} (Normal) Range: 0.0-30.0 Microalbumin, Urine 8.7 ug/mL (Normal) Range: 0.0-17.0 Creatinine, Urine 123.2 mg/dL (Normal) Range: 15.0-278.0 :04 METABOLIC PANEL, COMPREHENSIVE Comments: PATIENT WAS FASTINGPERFORMED BY: dooyoo [id number] [facility] [id number] ([id number]) ALT (SGPT) 22 [iU]/L (Normal) Range: 0-32 AST (SGOT) 19 [iU]/L (Normal) Range: 0-40 Alkaline Phosphatase, S 40 [iU]/L (Normal) Range: 39-117 Bilirubin, Total 0.5 mg/dL (Normal) Range: 0.0-1.2 A/G Ratio 1.7 (Normal) Range: 1.1-2.5 Globulin, Total 2.2 g/dL (Normal) Range: 1.5-4.5 Albumin, Serum 3.8 g/dL (Normal) Range: 3.5-4.8 Protein, Total, Serum 6.0 g/dL (Normal) Range: 6.0-8.5 Calcium, Serum 9.2 mg/dL (Normal) Range: 8.7-10.3 Carbon Dioxide, Total 24 mmol/L (Normal) Range: 18-29 Chloride, Serum 106 mmol/L (Normal) Range: 97-108 Potassium, Serum 4.4 mmol/L (Normal) Range: 3.5-5.2 Sodium, Serum 146 mmol/L (Abnormal) Range: 134-144 BUN/Creatinine Ratio 24 (Normal) Range: 11-26 eGFR If Africn Am 86 mL/min/1.73 (Normal) eGFR If NonAfricn Am 74 mL/min/1.73 (Normal) Creatinine, Serum 0.80 mg/dL (Normal) Range: 0.57-1.00 BUN 19 mg/dL (Normal) Range: 8-27 Glucose, Serum 99 mg/dL (Normal) Range: 65-99 :04 LIPID PANEL ([id number]) Comments: PATIENT WAS FASTINGPERFORMED BY: [facility] [id number] LDL/HDL Ratio 2.1 {ratio_units} (Normal) Range: 0.0-3.2 Comments: LDL/HDL Ratio Men Women 1/2 Avg.Risk 1.0 1.5 Av g.Risk 3.6 3.2 2X Avg.Risk 6.2 5.0 3X Avg.Risk 8.0 6.1 LDL Cholesterol Calc 82 mg/dL (Normal) Range: 0-99 VLDL Cholesterol Juan Manuel 23 mg/dL (Normal) Range: 5-40 HDL Cholesterol 40 mg/dL (Normal) Comments: According to ATP-III Guidelines, HDL-C >59 mg/dL is considered anegative risk factor for CHD. Triglycerides 115 mg/dL (Normal) Range: 0-149 Cholesterol, Total 145 mg/dL (Normal) Range: 100-199 :04 CBC W/AUTO DIFF WBC Comments: PATIENT WAS FASTINGPERFORMED BY: Simplee70 [facility] [id number] Information: [id number] ([id number]) Immature Grans (Abs) 0.0 {x10E3/uL} (Normal) Range: 0.0-0.1 Immature Granulocytes 0 % (Normal) Baso (Absolute) 0.1 {x10E3/uL} (Normal) Range: 0.0-0.2 Eos (Absolute) 0.3 {x10E3/uL} (Normal) Range: 0.0-0.4 Monocytes(Absolute) 0.5 {x10E3/uL} (Normal) Range: 0.1-0.9 Lymphs (Absolute) 2.5 {x10E3/uL} (Normal) Range: 0.7-3.1 Neutrophils (Absolute) 3.7 {x10E3/uL} (Normal) Range: 1.4-7.0 Basos 1 % (Normal) Eos 4 % (Normal) Monocytes 7 % (Normal) Lymphs 36 % (Normal) Neutrophils 52 % (Normal) Platelets 279 {x10E3/uL} (Normal) Range: 150-379 RDW 14.8 % (Normal) Range: 12.3-15.4 MCHC 33.3 g/dL (Normal) Range: 31.5-35.7 MCH 30.6 pg (Normal) Range: 26.6-33.0 MCV 92 fL (Normal) Range: 79-97 Hematocrit 40.6 % (Normal) Range: 34.0-46.6 Hemoglobin 13.5 g/dL (Normal) Range: 11.1-15.9 RBC 4.41 {x10E6/uL} (Normal) Range: 3.77-5.28 WBC 7.2 {x10E3/uL} (Normal) Range: 3.4-10.8 31-Gtp-298342:32 Basic Metabolic Profile (BMP) Comments: 'TROP' Serial specimen #1, #2, #3, or #4: 1Test performed at:[facility] [address] [place] [place], [place] [address] GAP 5 (Normal) Range: 5-15 CO2 29.0 mmol/L (Normal) Range: 21.0-32.0 CL 106 mmol/L (Normal) Range: 98-107 K 3.9 mmol/L (Normal) Range: 3.5-5.1 NA 140 mmol/L (Normal) Range: 136-145 CA 8.5 mg/dL (Normal) Range: 8.5-10.1 BUN/CRE 17.5 {RATIO} (Normal) Range: 10-20 Estimated CRCL 60.38 ml/min (Normal) CREAT,SERUM 0.8 mg/dL (Normal) Range: 0.6-1.0 BUN 14 mg/dL (Normal) Range: 7-18 GLU 102 mg/dL (Normal) Range: 70-110 14-Ygp-[id number]:32 CBC W/Diff, Automated Comments: Test performed at:[facility] [address] [place] [address] Absolute Lymph 3.62 {X10_3/ul} (Normal) Range: 0.83-4.51 Absolute Neut 4.9 {X10_3/uL} (Normal) Range: 2.0-7.7 IM GRAN % 0.400 % (Normal) Range: 0.0-0.9 Comments: IG% - Immature Granulocytes (promyelocytes, myelocytes andmetamyelocytes) > 1% indicates that a LEFT SHIFT is Present. BASO% 0.7 % (Normal) Range: 0-1 EO% 4.8 % (Normal) Range: 0-5 MONO% 12.0 % (Abnormal) Range: 0-10 LY% 35.0 % (Normal) Range: 19-41 NEUT% 47.1 % (Normal) Range: 47-70 MPV 9.9 fL (Normal) Range: 6.2-12.0 PLT 248 K/mm3 (Normal) Range: 150-450 RDW SD 49.1 fL (Abnormal) Range: 35.1-43.9 RDW CV 14.1 % (Normal) Range: 11.6-14.6 MCHC 31.9 {g/gl} (Abnormal) Range: 32-36 MCH 30.5 pg (Normal) Range: 27.0-32.0 MCV 95.6 fL (Normal) Range: 81-99 HCT 43.2 % (Normal) Range: 37-47 HGB 13.8 g/dL (Normal) Range: 12.0-15.0 RBC 4.52 {M/mm3} (Normal) Range: 4.2-5.4 WBC 10.3 K/mm3 (Normal) Range: 4.4-11.0 87-Xlz-072927:32 Troponin-I Comments: 'TROP' Serial specimen #1, #2, #3, or #4: 1Test performed at:[facility] [address] [place] [address] TROPONIN-I < 0.02 ng/mL (Normal) Comments: TROPONIN-I EXPECTED VALUES <0.05 NEGATIVE 0.06 - 0.59 AT RISK OF AL > OR = 0.60 SUGGEST AL 97-Ulz-[id number]:49 URINE DIANA CULTURE-CONCHA COL Comments: PATIENT NOT FASTINGPERFORMED BY: [facility] [id number] [facility] [id number] Information: SRC:[facility] [id number] COUNT ([id number]) Result 1 CNSNSS (Abnormal) Comments: Coagulase negative Staphylococcus species, not Staphylococcussaprophyticus.10,000-25,000 colony forming units per mLBased on resistance to oxacillin this isolate would be resistant toall currently avail able beta-lactam antimicrobial agents, with theexception of the newer cephalosporins with anti-MRSA activity, such asCeftaroline S = Susceptible; I = Intermediate; R = Resistant P = Positive; N = Negative MICS are expressed in micrograms per mL Antibiotic RSLT#1 RSLT#2 RSLT#3 RSLT#4Ciprofloxacin RGentamicin SLevofloxacin RNitrofurantoin SOxacillin RPenicillin RRifampin STetracycline STrimethoprim/Sulfa SVancomycin S Urine Final report Culture,Compreh (Abnormal) ensive 84-Pau-[id number]:53 Urinalysis, Office ([id number]) UA - LEUKOCYTE ESTERASE Trace (Normal) UA - NITRITE Negative (Normal) URINE UROBILINGN CONCHA TIMED Normal mg/dL (Normal) UA - PROTEIN Negative mg/dL (Normal) UA - PH 7 (Normal) UA - BLOOD Non Hemolyzed Trace (Normal) UA - SPECIFIC GRAVITY 1.015 (Normal) UA - KETONES Negative mg/dL (Normal) UA - BILIRUBIN Negative (Normal) UA - GLUCOSE Negative (Normal) 35-Gvh-458891:30 Basic Metabolic Profile (BMP) Comments: Serial Specimen #1, #2 or #3? 1'TROP' Serial specimen #1, #2, #3, or #4: 1Test performed at:[facility] [address] [facility] [place], [place] [address] GAP 4 (Abnormal) Range: 5-15 CO2 28.0 mmol/L (Normal) Range: 21.0-32.0 CL 110 mmol/L (Abnormal) Range: 98-107 K 3.5 mmol/L (Normal) Range: 3.5-5.1 NA 142 mmol/L (Normal) Range: 136-145 CA 8.3 mg/dL (Abnormal) Range: 8.5-10.1 BUN/CRE 12.7 {RATIO} (Normal) Range: 10-20 Estimated CRCL 42.21 ml/min (Normal) CREAT,SERUM 1.1 mg/dL (Abnormal) Range: 0.6-1.0 BUN 14 mg/dL (Normal) Range: 7-18 GLU 106 mg/dL (Normal) Range: 70-110 13-Ziz-543340:30 CBC W/Diff, Automated Comments: Test performed at:[facility] [address] [place] [address] Absolute Lymph 4.15 {X10_3/ul} (Normal) Range: 0.83-4.51 Absolute Neut 5.6 {X10_3/uL} (Normal) Range: 2.0-7.7 IM GRAN % 0.200 % (Normal) Range: 0.0-0.9 Comments: IG% - Immature Granulocytes (promyelocytes, myelocytes andmetamyelocytes) > 1% indicates that a LEFT SHIFT is Present. BASO% 0.7 % (Normal) Range: 0-1 EO% 2.7 % (Normal) Range: 0-5 MONO% 8.4 % (Normal) Range: 0-10 LY% 37.4 % (Normal) Range: 19-41 NEUT% 50.6 % (Normal) Range: 47-70 MPV 10.5 fL (Normal) Range: 6.2-12.0 PLT 273 K/mm3 (Normal) Range: 150-450 RDW SD 47.5 fL (Abnormal) Range: 35.1-43.9 RDW CV 13.3 % (Normal) Range: 11.6-14.6 MCHC 33.2 {g/gl} (Normal) Range: 32-36 MCH 32.5 pg (Abnormal) Range: 27.0-32.0 MCV 97.8 fL (Normal) Range: 81-99 HCT 44.9 % (Normal) Range: 37-47 HGB 14.9 g/dL (Normal) Range: 12.0-15.0 RBC 4.59 {M/mm3} (Normal) Range: 4.2-5.4 WBC 11.1 K/mm3 (Abnormal) Range: 4.4-11.0 :30 CK-MB Quantitative and Index Comments: Serial Specimen #1, #2 or #3? 1'TROP' Serial specimen #1, #2, #3, or #4: 1Test performed at:[facility] [address] [place], [place] [address] CPKMB 1.5 ng/mL (Normal) Range: 0.0-5.0 Comments: CK-MB and RI Interpretation MB Relative Index Non-AMI <or= 5 NA Indeterminate > 5 <or= 4 AMI > 5 > 4 CPK TOTAL 119 U/L (Normal) Range: 26-192 31-Yus-930901:30 Troponin-I Comments: Serial Specimen #1, #2 or #3? 1'TROP' Serial specimen #1, #2, #3, or #4: 1Test performed at:[facility] [address] [place] [address] TROPONIN-I < 0.02 ng/mL (Normal) Comments: TROPONIN-I EXPECTED VALUES <0.05 NEGATIVE 0.06 - 0.59 AT RISK OF AL > OR = 0.60 SUGGEST AL :06 BMP GAP 7 (Normal) Range: 5-15 CL 106 mmol/L (Normal) Range: 98-107 CO2 30.0 mmol/L (Normal) Range: 21.0-32.0 K 3.6 mmol/L (Normal) Range: 3.5-5.1 CA 9.2 mg/dL (Normal) Range: 8.5-10.1 NA 143 mmol/L (Normal) Range: 136-145 BC 16.3 {RATIO} (Normal) Range: 10-20 GFRAA 91 mL/min (Normal) CREAT 0.8 mg/dL (Normal) Range: 0.6-1.0 GFR 75 mL/min (Normal) BUN 13 mg/dL (Normal) Range: 7-18 GLU 101 mg/dL (Normal) Range: 70-110 98-Lrl-19781:06 CBCD ALC 2.65 {X10_3/ul} (Normal) Range: 0.83-4.51 ANC 3.7 {X10_3/uL} (Normal) Range: 2.0-7.7 IG% 0.300 % (Normal) Range: 0.0-0.9 Comments: IG% - Immature Granulocytes (promyelocytes, myelocytes andmetamyelocytes) > 1% indicates that a LEFT SHIFT is Present. B% 1.5 % (Abnormal) Range: 0-1 E% 3.6 % (Normal) Range: 0-5 M% 9.2 % (Normal) Range: 0-10 L% 35.8 % (Normal) Range: 19-41 N% 49.6 % (Normal) Range: 47-70 MPV 11.5 fL (Normal) Range: 6.2-12.0 PLT 261 K/mm3 (Normal) Range: 150-450 RDWSD 47.4 fL (Abnormal) Range: 35.1-43.9 RDWCV 13.6 % (Normal) Range: 11.6-14.6 MCHC 34.1 {g/gl} (Normal) Range: 32-36 MCH 33.1 pg (Abnormal) Range: 27.0-32.0 MCV 96.9 fL (Normal) Range: 81-99 HCT 47.2 % (Abnormal) Range: 37-47 HGB 16.1 g/dL (Abnormal) Range: 12.0-15.0 RBC 4.87 {M/mm3} (Normal) Range: 4.2-5.4 WBC 7.4 K/mm3 (Normal) Range: 4.4-11.0 :53 BILAT SCRN DIGITAL & CAD Radiology Report See Note (Normal) Comments: MAMMOGRAPHY - BILATERAL SCREENING REASON FOR EXAM: Female, 66 years old. Routine annual screeningexamination. PERTINENT HISTORY: Mother with breast cancer. Aunt with breast cancer. BAMBI PIRES: Keith igital examination. Mediolateral oblique (MLO) andcraniocaudad (CC) views of both breasts were obtained. CAD: CAD wasperformed on this study. COMPARISON: Comparison is made with prior studies dated N August 02 2010. FINDINGS:The breast composition is heterogeneously dense. There are no dominant masses or suspicious calcifications. No other significant abnormalities are identified. There has been nosignificant change since the prior study. IMPRESSION:Stable bilateral screening mammogram. Yearly follow-up recommended. (A) ASSESSMENT CATEGORY:BIRADS Category 2: Benign finding( s). A letter regarding these resultswill be sent to the patient by the facility within 30 days. Approximately 10% of breast cancers are not detected by mammography. Anormal mammogram should not delay biopsy of a clinically suspiciousabnormality. Signed:Lazaro Abrams M.D.August 06, 2012 at 8:30:02 AM [phone] Signed GP/GP If you are the referring physician and would like t o consult with theradiologist who provided this interpretation, please contact Tg Watkins at [phone]. If this radiologist is unavailable, youwill be directed to another radiologist to assist. If you are a patient with a question regarding this report, pleasecontactyour referring physician directly. Professional Interpretation Provided By: [employer], Phone ,Fax These documents contain legally protected and confidential healthinformation intended only for the use of the individual or entity namedabove. If you are not the intended recipient, you are hereby notifiedthatany disclosure, copying, distribution, or other use of these documents isstrictly prohibited. If you have received this information in error,pleasenotify the sender immediately and arrange for the return or destructionofthese documents. Dictated on 08/06/12 0753 by Iliana Abrams MDribed on 08/06/12 1324 by ITS IMPORTSign by Lazaro Abrams MD on 08/06/12 1325 Sign by: Lazaro Abrams MD 3-Vsp-280677:37 BILAT SCRN DIGITAL & CAD Radiology Report See Note (Normal) Comments: MAMMOGRAPHY - BILATERAL SCREENING REASON FOR EXAM: Female, 65 years old. Routine annual screeningexamination. PERTINENT HISTORY: Mother with breast cancer. TECHNIQUE: Digital examinat ion. Mediol ateral oblique (MLO) andcraniocaudad (CC) views of both breasts were obtained. CAD: CAD wasperformed on this study. COMPARISON: Comparison is made with prior study dated August 02, 2010. FINDINGS:The breast composition is composed of scattered fibroglandular densities. There are no masses or suspicious microcalcifications. No other significant abnormalities are identified. There has been nosignifi cant change since the prior study. IMPRESSION:Normal bilateral screening mammogram. One year follow-up recommended. (A) ASSESSMENT CATEGORY:BIRADS Category 2: Benign finding(s). A letter regarding th urszula resultswill be sent to the patient by the facility within 30 days. Approximately 10% of breast cancers are not detected by mammography. Anormal mammogram should not delay biopsy of a clinically prince piciousabnormality. Dictated on 08/05/11 1611 by Ashlee Abrams MDranscribed on 08/06/11 1207 by ITS IMPORTSign by Lazaro Abrams MD on 08/06/11 1208 Sign by: Lazaro Abrams MD 6-Ygn-412352:37 DEXA BONE DENSITY STUDY (HP) Radiology Report See Note (Normal) Comments: PROCEDURE: DUAL ENERGY X-RAY ABSORPTIOMETRY / DEXA. REASON FOR EXAM: Female, 65 years old. The patient is post menopausal. TECHNIQUE: Bone Mineral Density (BMD) measurements of lumbar spine andbil ateral hips were obtained. COMPARISON: Comparison is made with prior study dated July 04, 2009 FINDINGS: Lumbar Spine (L1-L4): g/cm2 (1.197) / T- score (0.1) / Z-score (1.8)Left Femur Total: g/ cm2 (1.066) / T-score (0.5) / Z-score (1.8)Right Femur Total: g/cm2 (1.045) / T-score (0.3) / Z-score (1.6) Since prior study, there has been a bone loss of 3%. IMPRESSION:The patient is consid ered normal, as outlined below according to WorldHealth Organization (WHO) criteria. Fracture risk is low. Reference Information:The T-score is the number of standard deviations above or below thestand rufina which is normal for young adults at their peak bone mineraldensity. The World Health Organization (WHO) interprets the T-scores asfollows: Above -1 Normal bone densityBetween -1 and -2.5 OsteopeniaEqual to / or below -2.5 Osteoporosis As a practical clinical guideline, osteopenia may be graded as follows:Mild -1 through -1.5Moderate - 1.6 through -2.0Severe -2.1 through -2.4 The Z- score is the number of standard deviations above or below age-matchedcontrols. A Z-score of less than -1.5 would be considered abnormal. References:1. NIH Osteoporosis and Related Bone Diseases http:// www.osteo.org2. International Society for Clinical Densitometry http://www.iscd.org3. National Osteoporosis Foundation http://www.nof.org Dictated on 08/05/11 1541 by Benito Abrams MD, ed on 08/06/11 1117 by ITS IMPORTSign by Lazaro Abrams MD on 08/06/11 1118 Sign by: Lazaro Abrams MD 02-Aug-20109:57 BILAT SCRN DIGITAL & CAD Radiology Report See Note (Normal) Comments: Exam Number: [id number] AMMOGRAPHY - BILATERAL SCREENING INDICATION:Routine annual screening examination. PERTINENT HISTORY:Non-contributory. Mother with breast cancer. TECHNIQUE:Digital examination. M ediolateral oblique (MLO) and craniocaudad (CC) views of both breasts were obtained. CAD was performed on this study. COMPARISON:June 09, 2008 and June 11, 2009 FINDINGS:The breast compositio n is composed of scattered fibroglandular densities. There are no masses or suspicious microcalcifications. There are scattered calcifications present . These are benign in appearance No other signifi cant abnormalities are identified. IMPRESSION:Normal bilateral screening mammogram. Yearly follow-up recommended. ASSESSMENT CATEGORY:Category 2: Benign finding(s) Approximately 10% of breast cancers are not detected by mammography. A normal mammogram should not delay biopsy of a clinically suspicious abnormality. Reported By: MARLON KNOWLES M.D. 03-Jul-20109:15 Urinalysis, Office ([id number]) UA - LEUKOCYTE ESTERASE Negative (Normal) UA - NITRITE Negative (Normal) URINE UROBILINGN CONCHA TIMED Normal mg/dL (Normal) UA - PROTEIN Negative mg/dL (Normal) UA - PH 7.0 (Normal) UA - BLOOD Hemolyzed Small (Normal) UA - SPECIFIC GRAVITY 1.010 (Normal) UA - KETONES Negative mg/dL (Normal) UA - BILIRUBIN Negative (Normal) UA - GLUCOSE Negative (Normal) 16-Heo-711039:21 URINE DIANA CULTURE-IDENTIFICATN Comments: PATIENT NOT FASTINGPERFORMED BY: [facility] [id number] Information: [id number] ([id number]) Result 1 NG36 (Normal) Comments: No growth in 36 - 48 hours. Urine Culture,Comprehensive Final report (Normal) 63-Cff-946189:56 Urinalysis, Office ([id number]) UA - LEUKOCYTE ESTERASE Negative (Normal) UA - NITRITE Negative (Normal) URINE UROBILINGN CONCHA TIMED Normal mg/dL (Normal) UA - PROTEIN Negative mg/dL (Normal) UA - PH 7.0 (Normal) UA - BLOOD Hemolyzed Moderate (Normal) UA - SPECIFIC GRAVITY 1.015 (Normal) UA - KETONES Negative mg/dL (Normal) UA - BILIRUBIN Negative (Normal) UA - GLUCOSE Negative (Normal) 66-Ihu-629221:31 URINE DIANA CULTURE-CONCHA COL Comments: PATIENT NOT FASTINGPERFORMED BY: [employer] [facility] [id number] Information: SRC: [id number] COUNT ([id number]) Antimicrobial MIHEAD (Normal) Comments: S = Susceptible; I = Intermediate; R = Resistant P = Positive; N = NegativeMICS are expressed in micrograms per mLAntibiotic RSLT#1 RSLT#2 RSLT#3 RSLT#4Am oxicillin/Cl Susceptibility avulanic Acid SAmpicillin SCefepime SCeftriaxone SCefuroxime SCephalothin SCiprofloxacin SESBL NGentamicin SImipenem SLevofloxacin SNitrofurantoin SPiperacillin/Tazobactam Jus tracycline STobramycin STrimethoprim/Sulfa S Result 1 Escherichia coli Comments: 4,000 Colonies/mL (Normal) Urine Final report (Normal) Culture,Comprehensive 37-Ryu-57835:41 Urinalysis, Office ([id number]) Comments: done km UA - LEUKOCYTE ESTERASE Large (Normal) UA - NITRITE Negative (Normal) URINE UROBILINGN CONCHA TIMED Normal mg/dL (Normal) UA - PROTEIN Trace mg/dL (Normal) UA - PH 7.0 (Normal) UA - BLOOD Hemolyzed Large (Normal) UA - SPECIFIC GRAVITY 1.020 (Normal) UA - KETONES Negative mg/dL (Normal) UA - BILIRUBIN Negative (Normal) UA - GLUCOSE Negative (Normal) 04-Jul-20098:08 DEXA BONE DENSITY STUDY (HP) Radiology Report See Note (Normal) Comments: Exam Number: [id number] BONE DENSITOMETRY HISTORYPostmenopausal. TECHNIQUE Bone densitometry of the lumbar spine and both hips is now beingperformed. The best criteria for evaluation of osteoporosis is theT-value, which represents the comparison of the patient's bone mass [place] expected peak bone mass. For most patients, the mean T-value of V6jkdqupm L4 is used to evaluate the lumbar spine. To ev aluate the hip,the lower T-value of the femoral neck or total hip is used. FINDINGSIn this patient, the mean T-value of L1 through L4 is 0.5, which iswithin normal limits. Bone mineral density is measu red at 5.5%greater than in 2003 and 6.3% greater than in 2007. Digital lateral view for evaluation of vertebral deformity only demonstrates no compression fractures. T-value of the right femoralneck i s -0.1, which is normal. T-value of the total hip is 0.7, whichis normal. Bone mineral density is measured at 0.3% less than in 2003and 1% more than in 2007.The T-value of the right femoral neck is -0 .5, which is within normallimits.The T-value of the total right hip is 0.5, which is normal. IMPRESSIONBone densitometry of the lumbar spine and both hips is within normallimits. Reported By: MARLON KNOWLES M.D. :51 CA 125 ([id number]) Comments: PATIENT NOT FASTINGClinical Information: ADD [id number] PERFORMED BY: [facility]Epdpod0711 [facility] [id number] Cancer Antigen (CA) 125 6.3 U/mL (Normal) Range: 0.0-35.0 Comments: Pito ICMA methodology .Effective June 18, 2009, CA-125 will be changing to the Desirae ECLIA methodology. The reference inter nancy will be changing to: 0.0 - 34.0 Rebaselining will be offered for 90 days using panel [id number]. Available from 06/11/09 - 09/10/09. The second result, provided by the [employer] methodology will be provided at no charge. 99-Yrl-677533:55 BILAT SCRN DIGITAL & CAD Radiology Report See Note (Normal) Comments: Exam Number: [id number] MAMMOGRAM, BILATERAL SCREENING DIGITAL AND CAD HISTORYRoutine screening. TECHNIQUE Full field digital images were obtained in mediolateral oblique andcraniocaudal proj ections. CA D images were reviewed. The current study is compared to the examinations of May, and June 09, 2008. FINDINGSThere is moderately dense fibroglandular parenchyma present. There isno skin thickening or retraction, architectural distortion, or clusterof suspicious microcalcifications. There are scattered benigncalcifications present. If there is no suspicious palpableabnormality, followup mammogram in 1 year is recommended. IMPRESSIONThere is no radiographic evidence of malignancy identified. FINAL ASSESSMENTBenign findings. BIRADS Category 2. A letter regarding these results has been sent to the patient. This interpretation was rendered by a radiologist certified under theMammography Quality Standards Act of 1992 (MQSA). The mammograms werealso examined with computer-aid ed detection software ([employer], [employer] Reported By: MARLON KNOWLES M.D. :18 CERV SPINE,MIN 4 VIEWS Radiology Report See Note (Normal) Comments: Exam Number: [id number] CLINICAL DATANeck pain on the left side. Lifted something in August. EXAMINATIONCervical spine. 6 views of the cervical spine show normal alignment. There iscervical spond ylosis at C5-6 and C6-7, with associated degenerative orhypertrophic spurs. Prevertebral soft tissue appears unremarkable. There is loss of normal cervical lordosis, probably secondary tomuscle spasm. There is yrxu-xs-laabkejl encroachment on the rightneural foramina at C5- 6. There is mild encroachment on the bilateralneural foramina at C6-7. Odontoid process unremarkable. IMPRESSION Cervical sp ondylosis at C5-6 and C6-7, with bpbe-jh-zukdfqkwkxuwczdhetpm on the right neural foramina at C5-6. Mild encroachmenton the bilateral neural foramina at C6-7. Reported By: DIANA KENNEDY [id number]-Fha-[id number]:43 CHEST, PA AND LATERAL ([place]) Radiology Report See Note (Normal) Comments: Exam Number: [id number] PA AND LATERAL CHEST CLINICAL INFORMATIONAbnormal lung sounds. Frontal and lateral images of the chest were obtained withoutcomparison studies available. Heart size is within nor mal limits asis the pulmonary vasculature. Lungs demonstrate no areas ofconsolidation and no effusions. There appears to be minimal scarringor atelectasis at the left base. There is a calcified gran uloma nearthe right lateral costophrenic sulcus. Interstitium appears minimallyprominent. Hilar structures are not enlarged. IMPRESSIONNo areas of lung consolidation are seen and no effusions are evid ent. Interstitium appears minimally prominent. Reported By: JENARO ESTRADA M.D. :18 GLU 84 mg/dL (Normal) Range: 70-110 :18 LIPID HDL 40 mg/dL (Normal) Comments: Reference Range HDL <40 mg/dL Low HDL Cholesterol HDL >or= 60 mg/dL High HDL Cholesterol LDL 114 mg/dL (Normal) Range: 0-130 TRIG 111 mg/dL (Normal) Comments: Serum Triglycerides Reference Interval Normal <150 mg/dL Borderline high 150 - 199 mg/dL High 200 - 499 mg/dL Very High > or = 500 mg/dL VLDL 22 mg/dL (Normal) Range: 5-40 CHOL 176 mg/dL (Normal) Comments: <200 mg/dL Desirable 200-240 mg/dL Borderline >240 mg/dL High Risk [id number]-Ekv-[id number]:46 BILAT SCRN DIGITAL & CAD Radiology Report See Note (Normal) Comments: Exam Number: [id number] BILATERAL SCREENING DIGITAL MAMMOGRAPHY WITH COMPUTED ASSISTEDDETECTION COMPARISONSept2007 and also June 02, 2006. MLO and CC views were acquired bilaterally. The b reasts are comprisedof heterogeneously dense parenchyma. There are bilateral scatteredbenign calcifications. No clusters of suspicious microcalcifications.No skin thickening, masses, architectural dis tortion. Overallappearance is unchanged from previous studies. IMPRESSION1. No mammographic evidence of malignancy. No change from previous studies.2. BIRADS Category 2. Benign findings. Screenin g study in 1 year. A letter regarding these results has been sent to the patient. This interpretation was rendered by a radiologist certified underthe Mammography Quality Standards Act of 1992 (MQSA). The mammogramswere also examined with computer-aided detection software([employer] Reported By: ANUEL WILSON M.D. :2 GLUP 89 mg/dL (Normal) Comments: GLU,2HPPG 75gm GLUC PPG GLUP from 1024:X54490B. 5 :0 CA125 2303 5.2 U/mL (Normal) Range: 0.0-35.0 9 Comments: [facility] methodologyPerformed At: [facility] [id number] [place], [place] [id number] :09 LIPID CHOL 172 mg/dL (Normal) Comments: <200 mg/dL Desirable 200-240 mg/dL Borderline >240 mg/dL High Risk HDL 39 mg/dL (Normal) Comments: Reference Range HDL <40 mg/dL Low HDL Cholesterol HDL >or= 60 mg/dL High HDL Cholesterol LDL 114 mg/dL (Normal) Range: 0-130 TRIG 93 mg/dL (Normal) Comments: Serum Triglycerides Reference Interval Normal <150 mg/dL Borderline high 150 - 199 mg/dL High 200 - 499 mg/dL Very High > or = 500 mg/dL VLDL 19 mg/dL (Normal) Range: 5-40 30-Mpe-38034:28 BILAT SCRN DIGITAL & CAD Radiology Report See Note (Normal) Comments: Exam Number: [id number] BILATERAL SCREENING MAMMOGRAPHY HISTORYRoutine screening. COMPARISONComparison is made to prior studies of June 02, 2006 and April. TECHNIQUERoutine MLO and CC views w ere acquired. FINDINGSThe breast parenchyma is heterogeneously dense. Scattered benigncalcifications are shown bilaterally. No suspicious cluster ofmicrocalcifications, area of architectural distortio n, orthree-dimensional spiculated masses are shown. There has been nosignificant interval change. IMPRESSION1. No mammographic evidence for malignancy.2. BIRADS code 2, benign findings. 3. Followup in l year. A letter regarding these results has been sent to the patient. This interpretation was rendered by a radiologist certified underthe Mammography Quality Standards Act of 1992 (MQSA). The ma mmogramswere also examined with computer-aided detection software([employer] Reported By: JENARO HERNANDEZ M.D. [id number]-[id number]:27 DEXA BONE DENSITY STUDY () Radiology Report See Note (Normal) Comments: Exam Number: [id number] BONE DENSITOMETRY HISTORYOsteopenia. TECHNIQUE Bone densitometry of the lumbar spine and left hip was performed. Thebest criteria for evaluation of osteoporosis is the T-valu e whichrepresents the comparison of the patient's bone mass to an expectedpeak bone mass. For most patients, the mean T-value of L1 through L4and the T-value of the total left hip are most useful. FI NDINGSIn this patient, the mean T-value of L1 through L4 is -0.1 which isnormal. Bone mineral density is measured at 0.8% less than in 2003. Digital lateral view for evaluation of vertebral deformity o nlydemonstrates no obvious compression fractures. The T-value of theleft femoral neck is -0.2 which is normal. The T-value of the totalleft hip is 0.6 which is normal. Bone mineral density of the to talleft hip is measured at 1.3% less than in 2003. IMPRESSIONBone densitometry of the lumbar spine and total left hip are in thenormal range. Reported By: MARLON KNOWLES M.D. Plan of Care Name Dates Details Instructions Benign essential HTN : Follow up in 6 months Indication: Benign essential HTN Benign essential HTN : Reviewed Lab Indication: Benign essential HTN Benign essential HTN : Diet, Exercise, and Wt loss Indication: Benign essential HTN Benign essential HTN : HTN/CAD Red Flags Indication: Benign essential HTN COPD (chronic obstructive pulmonary disease) : Reviewed Diagnostic Tests Indication: COPD (chronic obstructive pulmonary disease) Diastolic dysfunction : Continue Current Prescription(s) Indication: Diastolic dysfunction Abnormal EKG : Reviewed Diagnostic Tests Indication: Abnormal EKG Benign essential HTN : Follow up in 6 months Indication: Benign essential HTN Aortic dissection, thoracic : Reviewed Diagnostic Tests Indication: Aortic dissection, thoracic Benign essential HTN : Eprescribed prescriptions (G8553) Indication: Benign essential HTN Benign essential HTN : Follow up in 3 weeks Indication: Benign essential HTN Benign essential HTN : BP MONITORING - SELF Indication: Benign essential HTN Encounter for annual general medical examination with abnormal findings in adult : fall reduction handout Indication: Encounter for annual general medical examination with abnormal findings in adult Encounter for annual general medical examination with abnormal findings in adult : elderly packet given Indication: Encounter for annual general medical examination with abnormal findings in adult Encounter for annual general medical examination with abnormal findings in adult : advance planning information Indication: Encounter for annual general medical examination with abnormal findings in adult Encounter for annual general medical examination with abnormal findings in adult : Self breast exam Indication: Encounter for annual general medical examination with abnormal findings in adult Encounter for screening for malignant neoplasm of colon (Renamed from Special screening for malignant neoplasms, colon) : *Colon Cancer Screening Indication: Encounter for screening for malignant neoplasm of colon (Renamed from Special screening for malignant neoplasms, colon) Nonsmoker : Eprescribed prescriptions (G8553) Indication: Nonsmoker Nonsmoker : Eprescribed prescriptions (G8553) Indication: Nonsmoker Bronchitis : *URI Treatment Indication: Bronchitis Bronchitis : *URI Symptoms Indication: Bronchitis Bronchitis : *Antibiotic Usage Education - Female Indication: Bronchitis Flu-like symptoms : Eprescribed prescriptions (G8553) Indication: Flu-like symptoms Nonsmoker : Eprescribed prescriptions (G8553) Indication: Nonsmoker Benign essential HTN : Follow up in 6 months Indication: Benign essential HTN Encounter for annual general medical examination with abnormal findings in adult : *Weight Loss Discussion Indication: Encounter for annual general medical examination with abnormal findings in adult Encounter for annual general medical examination with abnormal findings in adult : fall reduction handout Indication: Encounter for annual general medical examination with abnormal findings in adult Encounter for annual general medical examination with abnormal findings in adult : elderly packet given Indication: Encounter for annual general medical examination with abnormal findings in adult Encounter for annual general medical examination with abnormal findings in adult : advance planning information Indication: Encounter for annual general medical examination with abnormal findings in adult Encounter for screening for malignant neoplasm of colon (Renamed from Special screening for malignant neoplasms, colon) : *Colon Cancer Screening Indication: Encounter for screening for malignant neoplasm of colon (Renamed from Special screening for malignant neoplasms, colon) Benign essential HTN : Eprescribed prescriptions (G8553) Indication: Benign essential HTN Diarrhea : *Abd Pain Red Flags Indication: Diarrhea Diarrhea : Diarrhea instructions Indication: Diarrhea Phlebitis of arm : Superficial Thrombophlebitis *: phlebitis Indication: Phlebitis of arm Pain of left upper extremity : Follow up in 3-4 days- quick jorge l Indication: Pain of left upper extremity Insomnia : Follow up in 1 month KF Indication: Insomnia Lower GI bleed : Eprescribed prescriptions (G8553) Indication: Lower GI bleed Benign essential HTN : Follow up in 3 months-- last week of january Indication: Benign essential HTN Osteopenia : Continue Current Prescription(s) Indication: Osteopenia Benign essential HTN : HTN/CAD Red Flags Indication: Benign essential HTN Benign essential HTN : Diet, Exercise, and Wt loss Indication: Benign essential HTN Benign essential HTN : Continue Current Prescription(s) Indication: Benign essential HTN Benign essential HTN : Reviewed Lab Indication: Benign essential HTN Annual Medicare Phyiscal WITHOUT abnormal findings (Renamed from Encounter for general adult medical examination without abnormal findings) : fall reduction handout Indication: Annual Medicare Phyiscal WITHOUT abnormal findings (Renamed from Encounter for general adult medical examination without abnormal findings) Annual Medicare Phyiscal WITHOUT abnormal findings (Renamed from Encounter for general adult medical examination without abnormal findings) : elderly packet given Indication: Annual Medicare Phyiscal WITHOUT abnormal findings (Renamed from Encounter for general adult medical examination without abnormal findings) Annual Medicare Phyiscal WITHOUT abnormal findings (Renamed from Encounter for general adult medical examination without abnormal findings) : advance planning information Indication: Annual Medicare Phyiscal WITHOUT abnormal findings (Renamed from Encounter for general adult medical examination without abnormal findings) Annual Medicare Phyiscal WITHOUT abnormal findings (Renamed from Encounter for general adult medical examination without abnormal findings) : *Weight Loss Discussion Indication: Annual Medicare Phyiscal WITHOUT abnormal findings (Renamed from Encounter for general adult medical examination without abnormal findings) Annual Medicare Phyiscal WITHOUT abnormal findings (Renamed from Encounter for general adult medical examination without abnormal findings) : Self breast exam Indication: Annual Medicare Phyiscal WITHOUT abnormal findings (Renamed from Encounter for general adult medical examination without abnormal findings) Encounter for screening for malignant neoplasm of colon (Renamed from Special screening for malignant neoplasms, colon) : *Colon Cancer Screening Indication: Encounter for screening for malignant neoplasm of colon (Renamed from Special screening for malignant neoplasms, colon) Annual Medicare Phyiscal WITHOUT abnormal findings (Renamed from Encounter for general adult medical examination without abnormal findings) : Eprescribed prescriptions (G8553) Indication: Annual Medicare Phyiscal WITHOUT abnormal findings (Renamed from Encounter for general adult medical examination without abnormal findings) Sinusitis : Eprescribed prescriptions (G8553) Indication: Sinusitis Benign essential HTN : Follow up in 2 months- medicare physcial Indication: Benign essential HTN Benign essential HTN : Follow up in 6 months- gen med Indication: Benign essential HTN Benign essential HTN : Continue Current Prescription(s) Indication: Benign essential HTN Knee pain : Reviewed Diagnostic Tests Indication: Knee pain Leg swelling : Follow up march for general medical visit Indication: Leg swelling Leg swelling : Eprescribed prescriptions (G8553) Indication: Leg swelling Leg swelling : Eprescribed prescriptions (G8553) Indication: Leg swelling Leg swelling : Lymphedema: edema Indication: Leg swelling Knee pain, right : Eprescribed prescriptions (G8553) Indication: Knee pain, right Abnormal urine odor : Follow up in 2 months-- update on gen med Indication: Abnormal urine odor Aortic aneurysm, abdominal : Continue Current Prescription(s): Beta Slime Indication: Aortic aneurysm, abdominal Benign essential HTN : HTN/CAD Red Flags Indication: Benign essential HTN Aortic aneurysm, abdominal : Reviewed Diagnostic Tests Indication: Aortic aneurysm, abdominal Aortic aneurysm, abdominal : Reviewed Surgical Physician Assistant Letter Indication: Aortic aneurysm, abdominal Cough : Follow up if no improvement or if symptoms worsen Indication: Cough Bronchitis : *URI Treatment Indication: Bronchitis Bronchitis : *URI Symptoms Indication: Bronchitis Bronchitis : *Antibiotic Usage Education - Female Indication: Bronchitis Elevated blood-pressure reading without diagnosis of hypertension : BP MONITORING - SELF Indication: Elevated blood-pressure reading without diagnosis of hypertension Heart murmur : Reviewed Diagnostic Tests Indication: Heart murmur Encounter for Medicare annual wellness exam : *Colon Cancer Screening Indication: Encounter for Medicare annual wellness exam Encounter for Medicare annual wellness exam : fall reduction handout Indication: Encounter for Medicare annual wellness exam Encounter for Medicare annual wellness exam : elderly packet given Indication: Encounter for Medicare annual wellness exam Encounter for Medicare annual wellness exam : advance planning information Indication: Encounter for Medicare annual wellness exam PRE-OPERATIVE EXAMINATION, UNSPECIFIED : Reviewed Lab Indication: PRE-OPERATIVE EXAMINATION, UNSPECIFIED Cough : Follow up if no improvement or if symptoms worsen Indication: Cough Cough : Follow up if no improvement or if symptoms worsen Indication: Cough Acute sinusitis, unspecified : *Antibiotic Usage Education - Female Indication: Acute sinusitis, unspecified Fibromyalgia : Follow up in 1 year Indication: Fibromyalgia Diverticulosis of colon : Diverticulosis Indication: Diverticulosis of colon Fibromyalgia : Fibromyalgia *: fibromyalgia Indication: Fibromyalgia Wheezing : *Antibiotic Usage Education - Female Indication: Wheezing Cough : Allergies: Controlling Your Environment: allergen Indication: Cough Acute sinusitis, unspecified : Sinusitis *: sinus infection Indication: Acute sinusitis, unspecified Well woman exam : Mammogram *: gynecological health Indication: Well woman exam Family history of malignant neoplasm of breast : Self breast exam Indication: Family history of malignant neoplasm of breast Well woman exam : *Colon Cancer Screening: HAD SCOPE SEP 2011 Indication: Well woman exam Well woman exam : *Well Female Maintenance (KF) Indication: Well woman exam Well woman exam : Pelvic/Bimanual/Rectal/Breast Exam Indication: Well woman exam Diverticulosis of colon : Diverticulosis Indication: Diverticulosis of colon Encounter for other screening for malignant neoplasm of breast : Mammogram *: gynecological health Indication: Encounter for other screening for malignant neoplasm of breast Wheezing : Follow up if no improvement or if symptoms worsen Indication: Wheezing Bronchitis : *URI Treatment Indication: Bronchitis Bronchitis : *URI Symptoms Indication: Bronchitis Bronchitis : *Antibiotic Usage Education - Female Indication: Bronchitis Cough : Follow up if no improvement or if symptoms worsen Indication: Cough Cough : Follow up if no improvement or if symptoms worsen Indication: Cough Bronchitis : *URI Treatment Indication: Bronchitis Bronchitis : *URI Symptoms Indication: Bronchitis Bronchitis : *Antibiotic Usage Education - Female Indication: Bronchitis Cough : Follow up as needed Indication: Cough Well woman exam : Self breast exam Indication: Well woman exam Well woman exam : *Colon Cancer Screening Indication: Well woman exam Well woman exam : *Well Female Maintenance (KF) Indication: Well woman exam Well woman exam : Pelvic/Bimanual/Rectal/Breast Exam Indication: Well woman exam Acute sinusitis, unspecified : *URI Treatment Indication: Acute sinusitis, unspecified Acute sinusitis, unspecified : *URI Symptoms Indication: Acute sinusitis, unspecified Acute sinusitis, unspecified : *Antibiotic Usage Education - Female Indication: Acute sinusitis, unspecified Wheezing : FOLLOW UP IN 10 days Indication: Wheezing Acute sinusitis, unspecified : *URI Treatment Indication: Acute sinusitis, unspecified Acute sinusitis, unspecified : *URI Symptoms Indication: Acute sinusitis, unspecified Acute sinusitis, unspecified : *Antibiotic Usage Education - Female Indication: Acute sinusitis, unspecified Well woman exam : Shingles Vaccine Education 2005 Indication: Well woman exam Well woman exam : *Colon Cancer Screening Indication: Well woman exam Well woman exam : SELF BREAST EXAM Indication: Well woman exam Dysuria : follow up for recheck urine 1 week after complete antibiotic Indication: Dysuria Hematuria : follow up for recheck urine 1 week after complete antibiotic Indication: Hematuria Acute sinusitis, unspecified : *URI Treatment Indication: Acute sinusitis, unspecified Acute sinusitis, unspecified : *URI Symptoms Indication: Acute sinusitis, unspecified Acute sinusitis, unspecified : *Antibiotic Usage Education - Female Indication: Acute sinusitis, unspecified Well woman exam : Colon Cancer Screening Indication: Well woman exam Well woman exam : Self Breast Exam Education Indication: Well woman exam Well woman exam : Shingles Vaccine Education 2005 Indication: Well woman exam Allergic rhinitis due to other allergen : ALLERGY CONTROL Indication: Allergic rhinitis due to other allergen Allergic rhinitis due to other allergen : ALLERGY PROOFING Indication: Allergic rhinitis due to other allergen Allergic rhinitis due to other allergen : URI Symptoms Indication: Allergic rhinitis due to other allergen Acute sinusitis, unspecified : *Antibiotic Usage Education - Female Indication: Acute sinusitis, unspecified Acute sinusitis, unspecified : *URI Treatment Indication: Acute sinusitis, unspecified Acute sinusitis, unspecified : URI Symptoms Indication: Acute sinusitis, unspecified Abnormal lung sounds : Solu Medrol Injection/ Education Indication: Abnormal lung sounds Abnormal lung sounds : MDI Education Indication: Abnormal lung sounds Well woman exam : Self Breast Exam Education Indication: Well woman exam Well woman exam : Colon Cancer Screening Indication: Well woman exam Well woman exam : Pelvic/Bimanual/Rectal/Breast Exam Indication: Well woman exam Well woman exam : Well Female Maintenance (KF) Indication: Well woman exam Osteopenia : FOLLOW UP IN 3 MONTHS Indication: Osteopenia Osteopenia : Reviewed Diagnostic Tests Indication: Osteopenia SCREENING FOR OTHER SPECIFIED ENDOCRINE, NUTRITIONAL, METABOLIC, AND IMMUNITY DISORDERS : Reviewed Lab Indication: SCREENING FOR OTHER SPECIFIED ENDOCRINE, NUTRITIONAL, METABOLIC, AND IMMUNITY DISORDERS Osteopenia : Reviewed Lab Indication: Osteopenia Family history of diabetes mellitus : Reviewed Lab Indication: Family history of diabetes mellitus Well woman exam : Self Breast Exam Education Indication: Well woman exam Well woman exam : Colon Cancer Screening Indication: Well woman exam Well woman exam : Well Female Maintenance (KF) Indication: Well woman exam Well woman exam : /Pelvic/Bimanual/Rectal/Breast Exam was done. Indication: Well woman exam Fibromyalgia : Diet and Exercise Indication: Fibromyalgia Fibromyalgia : Continue Current Prescription(s) Indication: Fibromyalgia Planned Observations FECAL OCCULT- Tubes sent home ([id number])Indication: Encounter for screening for malignant neoplasm of colon (Renamed from Special screening for malignant neoplasms, colon) On: :38 Request CALCIFIDIOL (80035) VIT D 25Indication: Vitamin D deficiency On: :32 Request URINALYSIS, W/ MICRO (52758)Indication: Benign essential HTN On: :32 Request MICROALBUMIN: CREATININE RATIO (92720) AND ([id number])Indication: Benign essential HTN On: :32 Request METABOLIC PANEL, COMPREHENSIVE (18075)Indication: Benign essential HTN On: :32 Request LIPID PANEL (73353)Indication: Benign essential HTN On: :32 Request CBC W/AUTO DIFF WBC (30610)Indication: Benign essential HTN On: :32 Request OVA & PARASITE DIR SMEAR (35284)Indication: Diarrhea On: :30 Request OCCULT BLOOD FECES SCREEN (84887)Indication: Diarrhea On: :30 Request LEUKOCYTE COUNT, FECAL (87088)Indication: Diarrhea On: :29 Request C-DIFFICILE, STOOL (76207)Indication: Diarrhea On: :29 Request DIANA CULTURE-STOOL (58913)Indication: Diarrhea On: :29 Request CBC, PLATELETS & MANUAL DIFF (99773)Indication: Phlebitis of arm On: :30 Request MAGNESIUM (20860)Indication: Diarrhea On: :00 Request Renal function Panel ([id number])Indication: Benign essential HTN On: :00 Request CBC, Platelets & Auto Diff ([id number])Indication: Lower GI bleed On: :00 Request CALCIFIDIOL (44291) VIT D 25Indication: Vitamin D deficiency On: 12-Uxx-491713:18 Request METABOLIC PANEL, COMPREHENSIVE (01219)Indication: Hernia, umbilical On: : Request CBC (AUTO) (83847)Indication: Hernia, umbilical On: :01 Request SED RATE ERYTHROCYTE (35581)Indication: Hernia, umbilical On: :01 Request C-REACTIVE PROTEIN (25439)Indication: Hernia, umbilical On: : Request CALCIFEDIOL (17653)Indication: Vitamin D deficiency On: 54-Sgx-479123:16 Request FECAL OCCULT- Tubes sent home (21375)Indication: Encounter for screening for malignant neoplasm of colon (Renamed from Special screening for malignant neoplasms, colon) On: 3-Xsr-281449:44 Request FECAL OCCULT HGB ASSAY- tubes sent home ([id number])Indication: Encounter for Medicare annual wellness exam On: 36-Ldu-80198:30 Request URINE DIANA CULTURE-CONCHA COL COUNT ([id number])Indication: Dysuria On: 03-Jul-20109:49 Request FECAL OCCULT HGB ASSAY- tubes sent home (80801)Indication: Well woman exam On: :49 Request LIPOPROTEIN, BLD, BY NMR ([id number])Indication: Well woman exam On: :30 Request LIPID PANEL (80936)Indication: Well woman exam On: :30 Request FECAL OCCULT HGB ASSAY- tubes sent home ([id number])Indication: Well woman exam On: :24 Request FECAL OCCULT HGB ASSAY- tubes sent home ([id number])Indication: Well woman exam On: :52 Request OCCULT BLOOD FECES SCREEN- card done in office ([id number])Indication: Well woman exam On: [id number] Request Glucose, PP/2 Hour ([id number])Indication: Family history of diabetes mellitus On: 5-Zdw-[id number]:16 Request Planned Procedures SIX MINUTE WALK TEST ([id number])By: On: 19-May-2018 Intent Visit, Nurse Nuclear Stress Test/Stress On: 24-Sep-2017 Intent SPECT/TreadmillBy: Nelia Smith DO, DO, Kathleen Echo CompleteBy: Nelia Smith DO On: 24-Sep-2017 Intent Nelia Smith DO ELECTROCARDIOGRAM, COMPLETE (ECG) On: 24-Sep-2017 Intent ([id number])By: Nelia Smith DO Comments: nsr poor r wave progression there is new , T wave inversionin ant septal precordial leads Nelia Smith DO Spirometry ([id number])By: Luis REA, On: 24-Sep-2017 Intent Nelia Robles DO Comments: restricition but poor curve Flu Vaccine (Quadrivalent) 68156Fv: On: 10-Aug-2017 Intent Nelia Smith DO, DO, Comments: lot: [id number]: 03/15/18ite/route: R lux, IMamt: 0.5mlVIS and ABN signed when applicableChelsMOON medina COMPUTED TOMOGRAPHY ANGIOGRAPHY OF On: 10-Aug-2017 Intent THORACIC AORTA ([id number])By: Luis REA, Comments: CTA thoracic aorta aneurysm with contrast results & images to [facility] surgery fax : [phone] Nelia Robles DO DEXA SCAN AXIAL SKELETON ([id number])By: On: 10-Aug-2017 Intent Nelia Smith DO, DO, Kathleen SCREENING DIGITAL TOMOSYNTHESIS OF On: 10-Aug-2017 Intent BREAST ([id number])By: Nelia Smith DO, DO, Kathleen Radiology - Chest- PA and LatBy: On: 20-Oct-2016 Intent Nelia Smith DO, DO, Kathleen Aerosol Treatment ([id number])By: Luis On: 20-Oct-2016 Nelia Escudero DO, DO, Kathleen Comments: more a/e and softer noise Aerosol Treatment ([id number])By: Jennifer On: 14-Oct-2016 Intent [employer], Josseline Aerosol Treatment ([id number])By: Lorenzo On: 04-Sep-2016 Intent Shane G[facility]TER [id number] BEHAVIORAL COUNSELING On: 29-Jul-2016 Intent FOR OBESITY, 15 MINUTES ([id number])By: Nelia Smith DO, DO, Kathleen MAMMOGRAM, SCREENING, BOTH BREAST On: 29-Jul-2016 Intent ([id number])By: Nelia Smith DO, DO, Kathleen Spirometry ([id number])By: Luis REA, On: 29-Jul-2016 Intent Nelia Robles DO Comments: mild restriciton but i think some techniq related chg ELECTROCARDIOGRAM, COMPLETE (ECG) On: 29-Jul-2016 Intent ([id number])By: Nelia Smith DO Comments: nsr no acute chg Nelia Smith DO Flu Vaccine (Quadrivalent) [id number]: On: 29-Jul-2016 Nelai Diaz DO, DO, Comments: FLUlot: [id number]:02/11site:Lt deltoidroute:IMdose:.5mlDELEVARKRAHEEM Venous Doppler - UpperBy: Arsen REA, On: 16-Apr-2016 Intent Amrita A Comments: bliateral arms VENOUS DUPLEX SCAN OF BILATERAL On: 01-Jan-2016 Intent UPPER EXTREMITIES ([id number])By: Luis Comments: Nelia Jackson DO, DO, Kathleen DOPPLER ULTRASOUND OF RIGHT UPPER On: 20-Dec-2015 Intent EXTREMITY FOR VENOUS THROMBOEMBOLISM ([id number])By: Nelia Smith DO, DO, Kathleen Doppler Ultrasound OtherBy: Luis On: 20-Dec-2015 Nelia Escudero DO, DO, Kathleen Comments: Left upper extremity -- to be sched next week Doppler Ultrasound OtherBy: Luis On: 20-Dec-2015 Nelia Escudero DO, DO, Kathleen Comments: STAT RU extremity-- call [phone] with results Venous Doppler - LeftBy: Luis REA, On: 18-Dec-2015 Intent Nelia Robles DO Comments: Pt needs to have done on either 12/19 or 12/20. Please call [facility] to [phone]. If after hours, please call to DR[facility] DOCTOR Doppler Ultrasound OtherBy: Lius On: 17-Dec-2015 Nelia Escudero DO, DO, Kathleen Comments: left upper extremity -post op redness swelling and pain after IV attempt CT - Abdomen & Pelvis (IV Contrast On: 30-Aug-2015 Intent Needed)By: Nelia Smith DO Comments: GFR 06/12 74 Nelia Smith DO IGEB-MD-[facility] BEHAVIORAL COUNSELING On: 29-Jun-2015 Intent FOR OBESITY, 15 MINUTES ([id number])By: Nelia Smith DO, DO, Kathleen DEXA SCAN AXIAL SKELETON ([id number])By: On: 29-Jun-2015 Intent Nelia Smith DO, DO, Kathleen MAMMOGRAM, SCREENING, BOTH BREAST On: 29-Jun-2015 Intent ([id number])By: Nelia Smith DO, DO, Kathleen ELECTROCARDIOGRAM, COMPLETE (ECG) On: 01-Jun-2015 Intent ([id number])By: Lorraine Romero LPN EKG ([id number])By: Nelia Smith DO On: 04-Apr-2015 Intent Nelia Smith DO Comments: nsr- no acute chg Doppler Ultrasound OtherBy: Luis On: 12-Mar-2015 Intent Nelia REA DO, Kathleen Radiology - Knee - RightBy: Luis On: 05-Feb-2015 Intent Nelia REA DO, Kathleen Aerosol Treatment ([id number])By: Jennifer On: 10-Jul-2014 Intent [employer], Josseline MAMMOGRAM, SCREENING, BOTH BREAST On: 19-Jun-2014 Intent ([id number])By: Nelia Smith DO, DO, Kathleen Echo CompleteBy: Nelia Smith DO On: 09-Jun-2014 Intent Nelia Smith DO Radiology - Chest- PA and LatBy: On: 09-Jun-2014 Intent Nelia Smith DO, DO, Kathleen EKG ([id number])By: Nelia Smith DO On: 09-Jun-2014 Intent Nelia Smith DO Comments: nsr no acute chg Aerosol Treatment ([id number])By: Luis On: 07-Dec-2013 Intent Nelia REA DO, Kathleen Comments: more a/e and more noise in RLL - Spirometry ([id number])By: Luis REA, On: 07-Dec-2013 Intent Nelia Robles DO Comments: mild obstruction Bone Density StudyBy: Luis REA, On: 15-Jun-2013 Intent Nelia Robles DO Breast Screening - BilateralBy: On: 15-Jun-2013 Intent Nelia Smith DO, DO, Kathleen MAMMOGRAM, SCREENING, BOTH BREASTS On: 03-Jun-2013 Intent ([id number])By: Nelia Smith DO Comments: dx screening Nelia Smith DO DXA, BONE DENSITY, AXIAL SKELETON On: 03-Jun-2013 Intent ([id number])By: Nelia Smith DO, DO, Kathleen Eprescribed prescriptions ([id number])By: On: 03-Jun-2013 Intent Jaimee Sorensen LPN Pulse Oximetry ([id number])By: Arsen ERA, On: 23-Mar-2013 Intent Amrita Hernandez Comments: 96 Spirometry ([id number])By: Arsen REA, On: 23-Mar-2013 Intent Amrita A Comments: good attempt but flat curve mod obst Aerosol Treatment ([id number])By: Arsen On: 23-Mar-2013 Intent Amrita REA Eprescribed prescriptions ([id number])By: On: 23-Mar-2013 Intent Micki Curtis PNEUM VAC ADLT/IMUMNOSPR, SBC/INTRM On: 01-Jul-2012 Intent ([id number])By: Nelia Smith DO Comments: 0.5 cc given im lt arm lot [id number] exp 11/28/13 Nelia Smith DO IMMUNIZ ADMNIN, 1 VAC, SNGL/COMBO On: 01-Jul-2012 Intent ([id number])By: Nelia Smith DO, DO, Kathleen MAMMOGRAM, SCREENING, BOTH BREASTS On: 01-Jul-2012 Intent ([id number])By: Jaimee Sorensen LPN Aerosol Treatment ([id number])By: Jennifer On: 16-Feb-2012 Intent Albina HARRIS Aerosol Treatment ([id number])By: Jennifer On: 08-Jul-2011 Intent Albina HARRIS TDAP VACCINE >7 IM ([id number])By: Luis On: 01-Jul-2011 Intent Nelia REA DO, Kathleen Comments: Lot #[id number]-right deltoidgiven by: [place] LPN DXA, BONE DENSITY, AXIAL SKELETON On: 01-Jul-2011 Intent ([id number])By: Jaimee Sorensen LPN MAMMOGRAM, SCREENING, BOTH BREASTS On: 01-Jul-2011 Intent ([id number])By: Jaimee Sorensen LPN Pulse Oximetry ([id number])By: Luis REA, On: 23-Jun-2011 Intent Nelia Robles DO Comments: 97% Aerosol Treatment ([id number])By: Luis On: 23-Jun-2011 Intent Nelia REA DO, Kathleen Comments: more a/e less noise but rhonchious persitns Pulse Oximetry ([id number])By: Jennifer HARRIS, On: 09-Dec-2010 Intent Josseline Aerosol Treatment ([id number])By: Jennifer On: 09-Dec-2010 Intent Albina HARRIS Pulse Oximetry ([id number])By: Jb RN, On: 12-Nov-2010 Intent Deanne MAMMOGRAM, SCREENING, BOTH BREASTS On: 03-Jul-2010 Intent ([id number])By: Jaimee Sorensen LPN Clinical Breast Examination On: 03-Jul-2010 Intent ([id number])By: Jaimee Sorensen LPN DXA, BONE DENSITY, AXIAL SKELETON On: 15-Jun-2009 Intent ([id number])By: Nelia Smith DO, DO, Kathleen Clinical Breast Examination On: 15-Jun-2009 Intent ([id number])By: Nelia Smith DO, DO, Kathleen PHYSICAL THERAPY EVALUATION On: 05-Mar-2009 Intent ([id number])By: Albina Rodriguez CNP Radiology - Cervical SpineBy: Jennifer On: 05-Mar-2009 Intent Albina HARRIS Inhaler Demonstration ([id number])By: On: 05-Mar-2009 Intent Albina Rodriguez CNP Aerosol Treatment ([id number])By: Jennifer On: 05-Mar-2009 Intent Albina HARRIS Pulse Oximetry ([id number])By: Jennifer HARRIS, On: 05-Mar-2009 Intent Albina Rudd Solu- Medrol Injection, 125mg On: 31-Jul-2008 Intent ([id number])By: Nelia Smith DO Comments: Lot #[id number] 2011Site-right [id number]/2mlgiven by Nelia Escamilla LPN, DO Radiology - Chest- PA and LatBy: On: 31-Jul-2008 Intent Nelia Smith DO, DO, Kathleen Spirometry ([id number])By: Luis REA, On: 31-Jul-2008 Intent Nelia Robles DO Comments: done before and after aerosol tx.-AWnot much improvement after inhaler Inhaler Demo ([id number])By: Luis REA, On: 31-Jul-2008 Intent Nelia Robles DO Comments: done-aw Pulse Oximetry ([id number])By: Luis REA, On: 31-Jul-2008 Intent Nelia Robles DO Comments: 96% Aerosol Treatment ([id number])By: Luis On: 31-Jul-2008 Nelia Escudero DO, DO, Kathleen Comments: done-[place] [employer] actually opened up and more noise Instructions Name Dates Details Nonsmoker : How to access health information online Indication: Nonsmoker Nonsmoker : How to access health information online - Detail Indication: Nonsmoker Nonsmoker : Patient Instructions Indication: Nonsmoker Nonsmoker : How to access health information online Indication: Nonsmoker Nonsmoker : How to access health information online - Detail Indication: Nonsmoker Nonsmoker : Patient Instructions Indication: Nonsmoker Benign essential HTN : How to access health information online Indication: Benign essential HTN Benign essential HTN : How to access health information online - Detail Indication: Benign essential HTN Benign essential HTN : Patient Instructions Indication: Benign essential HTN Nonsmoker : How to access health information online Indication: Nonsmoker Nonsmoker : How to access health information online - Detail Indication: Nonsmoker Nonsmoker : Patient Instructions Indication: Nonsmoker Body mass index 31.0-31.9, adult (Renamed from BMI 31.0-31.9,adult) : How to access health information online Indication: Body mass index 31.0-31.9, adult (Renamed from BMI 31.0-31.9,adult) Body mass index 31.0-31.9, adult (Renamed from BMI 31.0-31.9,adult) : How to access health information online - Detail Indication: Body mass index 31.0-31.9, adult (Renamed from BMI 31.0-31.9,adult) Body mass index 31.0-31.9, adult (Renamed from BMI 31.0-31.9,adult) : Patient Instructions Indication: Body mass index 31.0-31.9, adult (Renamed from BMI 31.0-31.9,adult) Nonsmoker : How to access health information online Indication: Nonsmoker Nonsmoker : How to access health information online - Detail Indication: Nonsmoker Nonsmoker : Patient Instructions Indication: Nonsmoker Nonsmoker : How to access health information online Indication: Nonsmoker Nonsmoker : How to access health information online - Detail Indication: Nonsmoker Nonsmoker : Patient Instructions Indication: Nonsmoker Flu-like symptoms : How to access health information online Indication: Flu-like symptoms Flu-like symptoms : How to access health information online - Detail Indication: Flu-like symptoms Flu-like symptoms : Patient Instructions Indication: Flu-like symptoms Nonsmoker : How to access health information online Indication: Nonsmoker Nonsmoker : How to access health information online - Detail Indication: Nonsmoker Nonsmoker : Patient Instructions Indication: Nonsmoker Benign essential HTN : obesity counseling Indication: Benign essential HTN Benign essential HTN : How to access health information online Indication: Benign essential HTN Benign essential HTN : How to access health information online - Detail Indication: Benign essential HTN Benign essential HTN : Patient Instructions Indication: Benign essential HTN Phlebitis of arm : How to access health information online Indication: Phlebitis of arm Phlebitis of arm : How to access health information online - Detail Indication: Phlebitis of arm Phlebitis of arm : Patient Instructions Indication: Phlebitis of arm Left arm swelling : How to access health information online Indication: Left arm swelling Left arm swelling : How to access health information online - Detail Indication: Left arm swelling Left arm swelling : Patient Instructions Indication: Left arm swelling Lower GI bleed : How to access health information online Indication: Lower GI bleed Lower GI bleed : How to access health information online - Detail Indication: Lower GI bleed Lower GI bleed : instruction Indication: Lower GI bleed Vitamin D deficiency : How to access health information online Indication: Vitamin D deficiency Vitamin D deficiency : How to access health information online - Detail Indication: Vitamin D deficiency Vitamin D deficiency : Patient Instructions Indication: Vitamin D deficiency Hernia, umbilical : How to access health information online Indication: Hernia, umbilical Hernia, umbilical : How to access health information online - Detail Indication: Hernia, umbilical Hernia, umbilical : Patient Instructions Indication: Hernia, umbilical Benign essential HTN : obesity counseling Indication: Benign essential HTN Annual Medicare Phyiscal WITHOUT abnormal findings (Renamed from Encounter for general adult medical examination without abnormal findings) : How to access health information online Indication: Annual Medicare Phyiscal WITHOUT abnormal findings (Renamed from Encounter for general adult medical examination without abnormal findings) Annual Medicare Phyiscal WITHOUT abnormal findings (Renamed from Encounter for general adult medical examination without abnormal findings) : How to access health information online - Detail Indication: Annual Medicare Phyiscal WITHOUT abnormal findings (Renamed from Encounter for general adult medical examination without abnormal findings) Annual Medicare Phyiscal WITHOUT abnormal findings (Renamed from Encounter for general adult medical examination without abnormal findings) : Patient Instructions Indication: Annual Medicare Phyiscal WITHOUT abnormal findings (Renamed from Encounter for general adult medical examination without abnormal findings) Sinusitis : How to access health information online - Detail Indication: Sinusitis Sinusitis : Patient Instructions Indication: Sinusitis Benign essential HTN : How to access health information online Indication: Benign essential HTN Benign essential HTN : How to access health information online - Detail Indication: Benign essential HTN Benign essential HTN : Patient Instructions Indication: Benign essential HTN Leg swelling : How to access health information online Indication: Leg swelling Leg swelling : How to access health information online - Detail Indication: Leg swelling Leg swelling : Patient Instructions Indication: Leg swelling Leg swelling : How to access health information online Indication: Leg swelling Leg swelling : How to access health information online - Detail Indication: Leg swelling Leg swelling : Patient Instructions Indication: Leg swelling Knee pain, right : Patient Instructions Indication: Knee pain, right Abnormal urine odor : How to access health information online Indication: Abnormal urine odor Abnormal urine odor : How to access health information online - Detail Indication: Abnormal urine odor Abnormal urine odor : Patient Instructions-- Indication: Abnormal urine odor COPD (chronic obstructive pulmonary disease) : How to access health information online Indication: COPD (chronic obstructive pulmonary disease) COPD (chronic obstructive pulmonary disease) : How to access health information online - Detail Indication: COPD (chronic obstructive pulmonary disease) COPD (chronic obstructive pulmonary disease) : Patient Instructions Indication: COPD (chronic obstructive pulmonary disease) Fibromyalgia : Patient Instructions Indication: Fibromyalgia Cough : Patient Instructions Indication: Cough Acute sinusitis, unspecified : Patient Instructions Indication: Acute sinusitis, unspecified Well woman exam : Patient Instructions Indication: Well woman exam Encounter for other screening for malignant neoplasm of breast : Patient Instructions Indication: Encounter for other screening for malignant neoplasm of breast Encounters Office Visit On: 26-May-2018 10:21 Encounter Reason: Follow up tests - Date: (05/19/18 labs)., [ADDITIONAL REASON] Follow up for chronic medical issues - The patient feels well with minor complai End: 26-May-2018 11:12 nts, has good energy level and is sleeping well. Patient has been compliant with instructions. Current medication use: no side effects. Patient sleeps 7 hours per night. Nutrition: balanced diet and sup plemental vitamins. The medical issues the patient is following up for include All identified problems below, high blood pressure and high cholesterol. blood pressure range :. Encounter Diagnosis: Body mass index 31.0-31.9, adult (Renamed from BMI 31.0-31.9,adult), Nonsmoker, Vitamin D deficiency, Benign essential HTN, Aortic dissection, thoracic, Fibromyalgia (729.1), COPD (chronic obstructive pulmonary disease) [facility] Office Visit On: 19-May-2018 9:27 Encounter Reason: Nurse procedure visit - The symptoms have been associated with other.Encounter Diagnosis: COPD (chronic obstructive pulmonary disease) End: 20-May-2018 14:50 [facility] Lab Order On: 10-May-2018 16:47 Encounter Diagnosis: Benign essential HTN, Vitamin D deficiency, Family history of diabetes mellitus (V18.0) End: 10-May-2018 17:12 [facility] Office Visit On: 15-Oct-2017 8:48 Encounter Reason: Follow up tests - Date: (10/09/17 and 09/30/17 stress and echo).Encounter Diagnosis: BMI 32.0-32.9,adult, Nonsmoker, Abnormal EKG, Diastolic dysfunction, PFO (patent foramen ovale) End: 15-Oct-2017 9:55 [facility] Office Visit On: 24-Sep-2017 9:54 Encounter Reason: Follow up for chronic medical issues - The patient feels well with minor complaints, has good energy level and is sleeping well. Current medication use: no side effects. Patient sleeps 7 hours per night End: 24-Sep-2017 11:58 . The medical issues the patient is following up for include All identified problems below. blood pressure range : (mostly 120-160s/70-80s).Encounter Diagnosis: Benign essential HTN, Body mass index 31.0-31.9, adult (Renamed from BMI 31.0-31.9,adult) , Nonsmoker, Aortic dissection, thoracic, COPD (chronic obstructive pulmonary disease), Vitamin D deficiency, Fibromyalgia (729.1), Osteopenia (733.90), Abnormal EKG [facility] Office Visit On: 10-Aug-2017 9:01 Encounter Reason: Annual Medicare Exam - The patient had reviewed and updated the family history, medication/s, past medical history and social history. Yes the patient did have a mini mental status exam done today. The End: 10-Aug-2017 11:41 activities of daily living the patient needs help with are none. The patient has driven in past 6 months, fallen in the past 6 months and put area rugs through house, but the patient has not had fecal i ncontinence, had urinary incontinence, missed or ran out of medications to soon, gotten lost, has a medalert necklace or bracelet or put handrails in bathroom. The patient has completed the following pr eventative measures: PAP smear (yrs), mammography (08/15/17) and colonoscopy (due in 2018). The patient does have durable power of safety officer and living will. The patient has noticed nothing from the [facility] depression scale. Other providers contributing to the patient's care are surgeon, urologist and other:.Encounter Diagnosis: Body mass index 31.0-31.9, adult (Renamed from BMI 31.0-31.9,adult), Nonsmoker, Encounter for screening mammogram for breast cancer (Renamed from Encounter for screening mammogram for malignant neoplasm of breast), Post-menopausal, Encounter for screening for malignant neoplasm of colon (Renamed from Special screening for malignant neoplasms, colon), Aortic dissection, thoracic, Need for prophylactic vaccination and inoculation against influenza (Renamed from Need for immunization against influenza), Benign essential HTN, Encounter for annual general medical examination with abnormal findings in adult [facility] Office Visit On: 18-May-2017 13:22 Encounter Reason: Nail Problems - No changes in management were made at the last visit.Encounter Diagnosis: Nonsmoker, Body mass index 31.0-31.9, adult (Renamed from BMI 31.0-31.9,adult), Ingrown nail of right middle finger End: 18-May-2017 14:19 [facility] Office Visit On: 24-Oct-2016 9:19 Encounter Reason: Follow up acute care visit - The patient feeling better since last seen. Patient has been compliant with instructions. Current medication use: compliant with dosing regimen. Patient sleeps 6 hours per n End: 24-Oct-2016 10:03 ight. Nutrition: balanced diet.Encounter Diagnosis: BMI 32.0-32.9,adult, Nonsmoker, Chronic obstructive asthma with acute exacerbation (Renamed from Chronic obstructive asthma with exacerbation), Cough, Bronchitis [facility] Office Visit On: 20-Oct-2016 12:59 Encounter Reason: Follow up acute care visit - The patient does not feel well. Patient has been compliant with instructions. Current medication use: no side effects and compliant with dosing regimen. Nutrition: balanced diet.Encounter Diagnosis: End: 20-Oct-2016 14:45 BMI 32.0-32.9,adult, Nonsmoker, Bronchitis, Chronic obstructive asthma with acute exacerbation (Renamed from Chronic obstructive asthma with exacerbation), Cough [facility] Office Visit On: 14-Oct-2016 8:05 Encounter Reason: Cold Symptoms - Symptoms include nasal congestion, runny nose, postnasal drainage, sore throat, productive cough (was green), facial pressure, facial pain and headache. Onset was sudden 1 week(s) ago. T End: 14-Oct-2016 8:38 he patient describes this as worsening. Symptoms are exacerbated by lying down. Associated symptoms include shortness of breath, fatigue and chills. Current treatment includes topical decongestants and cough suppressants. By report there is good compliance with treatment and poor symptom control. Previous presentation included nasal congestion, runny nose, postnasal drainage, sore throat, productive cough and chills.Encounter Diagnosis: BMI 32.0-32.9,adult, Nonsmoker, Flu-like symptoms, Cough (786.2), Bronchitis, Chronic obstructive asthma with acute exacerbation (Renamed from Chronic obstructive asthma with exacerbation) [facility] Office Visit On: 04-Sep-2016 10:00 Encounter Reason: Cough - The last clinic visit was 1 week(s) ago. Symptoms include cough, wheezing, fever (over weekend 100.3 for 2 days), runny nose, stuffy nose and sore throat. The cough is described as christy montero End: 04-Sep-2016 10:34 g, tight, dry and non-productive. Cough onset was sudden. Symptoms are described as severe and worsening. Symptoms are exacerbated by lying down. Associated symptoms include mouth breathing (at nignt) a nd headache. Note for Cough: nasal congestion. deep in chest. hx of pneumonia in past. some COPD. former smoker. taking cordicin HBP no others sick. fever gone.Encounter Diagnosis: BMI 32.0-32.9,adult, Nonsmoker, Chronic obstructive asthma with acute exacerbation (Renamed from Chronic obstructive asthma with exacerbation) [facility] Office Visit On: 29-Jul-2016 8:00 Encounter Reason: Annual Medicare Exam - Yes the patient did have () a mini mental status exam done today. The activities of daily living the patient needs help with are none. The patient has driven in past 6 months End: 29-Jul-2016 10:22 and put area rugs through house, but the patient has not had fecal incontinence, had urinary incontinence, missed or ran out of medications to soon, fallen in the past 6 months, gotten lost, has a michel lert necklace or bracelet or put handrails in bathroom. The patient has completed the following preventative measures: mammography (2014). The patient does have durable power of safety officer and living will . The patient has noticed nothing from the [facility] depression scale. Other providers contributing to the patient's care are plastics design engineer (Dr. Forbes), gastrologist (Dr. Foster) and other: (Dr. Leigh, urologist)., [ADDITIONAL REASON] Follow up for chronic medical issues - The patient feels well with no complaints, has good energy level and is sleeping poorly. Patient has been compliant with instructions. Current medication use: no side effects and compliant with dosing regimen. Patient sleeps 5 hours per night. Nutrition: balanced diet. Encounter Diagnosis: BMI 32.0- 32.9,adult, Nonsmoker, Need for prophylactic vaccination and inoculation against influenza (Renamed from Need for immunization against influenza), Benign essential HTN, Irritable bowel syndrome (564.1), COPD (chronic obstructive pulmonary disease), Vitamin D deficiency, Aortic aneurysm, abdominal, Arm DVT (deep venous thromboembolism), acute, bilateral, Lower GI bleed, History of peptic ulcer, Encounter for annual general medical examination with abnormal findings in adult, Encounter for screening mammogram for breast cancer (Renamed from Encounter for screening mammogram for malignant neoplasm of breast), Encounter for screening for malignant neoplasm of colon (Renamed from Special screening for malignant neoplasms, colon), Urine, incontinence, stress female [facility] Phone Encounter On: 16-Apr-2016 13:32 Encounter Diagnosis: Arm DVT (deep venous thromboembolism), acute, bilateral End: 16-Apr-2016 13:39 [facility] Office Visit On: 16-Jan-2016 8:52 Encounter Reason: Follow up hospital - Reason for ER visit: note: (lower GI bleed). The patient does not feel well (still has soft bm's), has decreased energy level and gradually improving. Patient has been compliant wit End: 16-Jan-2016 17:03 h instructions. Current medication use: no side effects. Nutrition: poor nutrition (on liquid and puree diet). Hospital procedures performed were other (CT abd and pelvis-colitis of left hemicolon).Encounter Diagnosis: Diarrhea, Arm DVT (deep venous thromboembolism), acute, bilateral, Phlebitis of arm, Lower GI bleed, Benign essential HTN, Aortic aneurysm, abdominal, Bladder mass [facility] Historical Summary On: 16-Jan-2016 7:45 [facility] End: 16-Jan-2016 8:52 Lab Order On: 01-Jan-2016 13:44 Encounter Diagnosis: Arm DVT (deep venous thromboembolism), acute, bilateral End: 01-Jan-2016 13:57 [facility] Lab Order On: 24-Dec-2015 9:26 Encounter Diagnosis: Phlebitis of arm End: 24-Dec-2015 9:30 [facility] Phone Encounter On: 20-Dec-2015 14:38 Encounter Diagnosis: Swelling of joint of upper arm, right End: 20-Dec-2015 14:47 [facility] Office Visit On: 20-Dec-2015 13:08 Encounter Reason: Yeast infection, [ADDITIONAL REASON] Arm pain - The onset of the pain has been sudden and has been occurring in a persistent pattern for 2 days. The course has been constant. The pain is described as severe. The pain End: 20-Dec-2015 13:41 is described as being located in the left forearm. The pain is relieved by nothing. , [ADDITIONAL REASON] Follow up tests - Date: (3/24/16 scanned in wet read.). Encounter Diagnosis: Phlebitis of arm, Pain of left upper extremity, Pain in joint, upper arm, right, Vaginal yeast infection, Constipation, acute [facility] Office Visit On: 18-Dec-2015 9:13 Encounter Reason: Follow up tests - Diagnostic tests include other (doppler). Date: (12/18/15).Encounter Diagnosis: Phlebitis of arm, Left arm swelling, Pain of left upper extremity End: 19-Dec-2015 10:11 [facility] Office Visit On: 17-Dec-2015 16:06 Encounter Reason: Arm pain - The onset of the pain has been sudden and has been occurring in a persistent pattern for 2 days. The course has been constant. The pain is described as severe. The pain is described as being End: 17-Dec-2015 16:21 located in the left forearm. The pain is relieved by nothing.Encounter Diagnosis: Pain of left upper extremity, Left arm swelling, Postoperative surgical complication involving circulatory system associated with circulatory procedur e, unspecified complication [facility] Office Visit On: 14-Dec-2015 6:52 Encounter Reason: Transition into care - The patient is transitioning into care from a hospital and a summary of care was reviewed . Note for Transition into care: To [place] [facility] on 12-06diarhea and red blood per rectome End: 14-Dec-2015 9:16 with abd painCT of abd and pelvis showing colitis of left hemicolong splenic flexture to rectum. ??treated with Cipro and flagyl. Kristin took her off of cipro. Also air in bladder. Saw Adria for that . Follow in January 14. Colovesical fistula to be ruled out. To See Kristin December 25 Metoproolol was increased to 75 because of hypertension. Was given potassium for low K. , [ADDITIONAL REASON] Follow up hospital - Reason for ER visit: note: (lower GI bleed). The patient does not feel well (still has soft bm's), has decreased energy level and gradually improving. Patient h as been compliant with instructions. Current medication use: no side effects. Nutrition: poor nutrition (on liquid and puree diet). Hospital procedures performed were other (CT abd and pelvis-colitis of left hemicolon). Encounter Diagnosis: Lower GI bleed, Colitis, Benign essential HTN, Diarrhea, Insomnia [facility] Office Visit On: 26-Nov-2015 10:14 Encounter Reason: Follow up for chronic medical issues - The patient feels well with minor complaints, has decreased energy level and is sleeping poorly. Patient has been compliant with instructions. Current medication u End: 26-Nov-2015 11:29 se: no side effects and compliant with dosing regimen. Patient sleeps 6 (broken) hours per night. Nutrition: balanced diet and supplemental vitamins. The medical issues the patient is following up for i nclude All identified problems below, COPD, fibromyalgia and other (IBS). blood pressure range :.Encounter Diagnosis: COPD (chronic obstructive pulmonary disease), Benign essential HTN, Vitamin D deficiency, Osteopenia (733.90), Fibromyalgia (729.1) , Aortic aneurysm, abdominal [facility] Office Visit On: 30-Aug-2015 7:11 Encounter Reason: Hernia, Umbilical - The last clinic visit was month(s) ago. No changes in management were made at the last visit. Symptoms include bulge at the umbilicus. There is no radiation. There is no known event End: 30-Aug-2015 8:03 that preceded symptom onset. The symptoms occur constantly. The patient describes this as moderate in severity.Encounter Diagnosis: Hernia, umbilical, Abdominal Pain,LLQ (789.04) [facility] Phone Encounter On: 21-Aug-2015 15:14 Encounter Diagnosis: Vitamin D deficiency End: 21-Aug-2015 15:17 [facility] Phone Encounter On: 16-Aug-2015 14:56 Encounter Diagnosis: Osteopenia (733.90) End: 16-Aug-2015 14:57 [facility] Office Visit On: 29-Jun-2015 11:15 Encounter Reason: Annual Medicare Exam - The patient had reviewed and updated the family history, medication/s, past medical history and social history. Yes the patient did have a mini mental status exam done today. The End: 29-Jun-2015 11:53 activities of daily living the patient needs help with are none. The patient has driven in past 6 months and put area rugs through house, but the patient has not had fecal incontinence, had urinary inco ntinence, missed or ran out of medications to soon, fallen in the past 6 months, gotten lost, has a medalert necklace or bracelet or put handrails in bathroom. The patient has completed the following pr eventative measures: mammography (2013) and colonoscopy (due in 2019, done in 2009 - ). The patient does have durable power of safety officer and living will. The patient has noticed nothing from the ge riatic depression scale. Other providers contributing to the patient's care are surgeon (vascular - Angel, Katia Yepez) and other: (eye doc - [facility], [facility] [place] )., [ADDITIONAL REASON] Well Women Exam - The patient feels well with minor complaints, has good energy level and is sleeping well. Pap smear: date of last pap: (2011). Contraceptive history: The patient i s not using any method of contraception at this time. The patient reports that she performs monthly self breast exam. Calcium intake includes 1200 mg daily supplment. The patient denies the use of oral contraceptives or hormone replacement therapy. Encounter Diagnosis: Annual Medicare Phyiscal WITHOUT abnormal findings (Renamed from Encounter for general adult medical examination without abnormal findings), Osteopenia (733.90), Encounter for screening mammogram for breast cancer (Renamed from Encounter for screening mammogram for malignant neoplasm of breast), Encounter for screening for malignant neoplasm of colon (Renamed from Special screening for malignant neoplasms, colon), Body mass index 31.0-31.9, adult (Renamed from BMI 31.0-31.9,adult), Benign essential HTN [facility] Office Visit On: 01-Jun-2015 9:31 Encounter Reason: Pre-Op Visit - The procedure scheduled is a right knee arthroscopy on 06/08/15. The surgeon for the procedure will be Dr. Yepez. Recent symptoms do not include fever, chills, fatigue, chest pain, cough, End: 01-Jun-2015 14:46 dyspnea, dysuria, urinary frequency, nausea, vomiting, diarrhea, abdominal pain, easy bruising, lower extremity swelling or poor exercise tolerance. Pertinent medical history includes prior anesthesia, cardiovascular disease (thoracic abd aorta rip) and frequent aspirin use, while pertinent medical history does not include previous anesthesia reaction, diabetes, pulmonary disease, renal disease, carol rointestinal disease, sleep apnea, thromboembolic problems, clotting disorder, bleeding disorder, transfusion reaction, impaired immunity or corticosteroid use in the last six months. Pertinent family h istory does not include anesthesia reaction, myocardial infarction, stroke, aneurysm, sudden , clotting disorder or bleeding disorder. Pertinent social history includes aspirin use. After surgery the patient plans to recover at home with family. Encounter Diagnosis: PRE-OPERATIVE EXAMINATION, UNSPECIFIED (V72.84), Aortic aneurysm, abdominal, Benign essential HTN, Osteopenia (733.90), COPD (chronic obstructive pulmonary disease) [facility] Refill Request On: 19-Apr-2015 15:59 Encounter Diagnosis: Sinusitis End: 19-Apr-2015 16:01 [facility] Office Visit On: 19-Apr-2015 7:34 Encounter Reason: Sinusitis/ - The duration of the symptoms are 1 week The course has been constant. The sinusitis/ has no relieving factors. Associated features include The symptoms have been associated with cough, ear End: 19-Apr-2015 8:02 pain, nasal discharge/stuffy nose and sinus pain. Note for Sinusitis/: been week now with green drainage and thickEncounter Diagnosis: Sinusitis [facility] Office Visit On: 04-Apr-2015 9:11 Encounter Reason: Follow up for chronic medical issues - The patient feels well with minor complaints, has decreased energy level and is sleeping poorly. Patient has been compliant with instructions. Current medication u End: 04-Apr-2015 12:17 se: no side effects and compliant with dosing regimen. Patient sleeps 5 hours per night. Nutrition: balanced diet and supplemental vitamins. The medical issues the patient is following up for include Al l identified problems below, fibromyalgia, high blood pressure and osteoporosis/osteopenia. blood pressure range : and weight :.Encounter Diagnosis: Benign essential HTN, Aortic aneurysm, abdominal, COPD (chronic obstructive pulmonary disease), Diverticulosis (562.10), Fibromyalgia (729.1), Knee pain [facility] Office Visit On: 28-Mar-2015 13:59 Encounter Reason: Edema - The last clinic visit was 1 month(s) ago. No changes in management were made at the last visit. Symptoms include edema. The edema involves both lower extremities. Onset was sudden. There is no k End: 28-Mar-2015 14:18 nown event that preceded symptom onset. The symptoms occur constantly. The patient describes this as severe and worsening. Current treatment includes elevation of the legs.Encounter Diagnosis: Leg swelling, Knee pain, right, Hamstring sprain, Aortic aneurysm, abdominal [facility] Office Visit On: 12-Mar-2015 15:43 Encounter Reason: Edema - The last clinic visit was 1 month(s) ago. No changes in management were made at the last visit. Symptoms include edema. The edema involves both lower extremities. Onset was sudden. There is no k End: 12-Mar-2015 16:27 nown event that preceded symptom onset. The symptoms occur constantly. The patient describes this as severe and worsening. Current treatment includes elevation of the legs.Encounter Diagnosis: Leg swelling, Calf pain [facility] Office Visit On: 05-Feb-2015 13:06 Encounter Reason: Knee Pain - The injury involved the right knee. This occurred 5 month(s) ago. Symptoms include knee pain.Encounter Diagnosis: Knee pain, right End: 05-Feb-2015 13:53 [facility] Phone Encounter On: 23-Oct-2014 15:50 Encounter Diagnosis: Unspecified Diagnosis End: 23-Oct-2014 15:54 [facility] Office Visit On: 18-Oct-2014 10:39 Encounter Reason: Transition into care - The patient is transitioning into care from a hospital (abdominal aortic aneurysm was in last thu till ) and a summary of care was not provided .Encounter Diagnosis: Aortic aneurysm, abdominal, End: 18-Oct-2014 12:01 Abnormal urine odor, Low back pain, Benign essential HTN [facility] Phone Encounter On: 16-Oct-2014 10:04 [facility] End: 16-Oct-2014 10:09 Office Visit On: 10-Jul-2014 8:58 Encounter Reason: Cough - The onset of the cough has been sudden. The cough is characterized as productive of mucoid sputum. The cough occurs all the time. The symptoms are aggravated by supine posture. The symptoms hav End: 10-Jul-2014 9:17 e been associated with wheezing, while the symptoms have not been associated with fever (broke last night ), headache or hoarseness. the color of the sputum is clear.Encounter Diagnosis: BRONCHITIS, NOT SPECIFIED ACUTE OR CHRONIC (490.), Wheezing (786.07), Cough (786.2) [facility] Office Visit On: 19-Jun-2014 8:59 Encounter Reason: Annual Medicare Exam - The patient had reviewed and updated the family history, medication/s, past medical history and social history. Yes the patient did have a mini mental status exam done today. The End: 19-Jun-2014 9:36 activities of daily living the patient needs help with are none. The patient has missed or ran out of medications to soon, driven in past 6 months and put area rugs through house, but the patient has no t had fecal incontinence, had urinary incontinence, fallen in the past 6 months, gotten lost, has a medalert necklace or bracelet or put handrails in bathroom. The patient has completed the following pr eventative measures: PAP smear (yrs), mammography (due) and colonoscopy (due in 6 yrs). The patient does have durable power of safety officer and living will. The patient has noticed nothing from the geriatic depression scale. Other providers contributing to the patient's care are other: (eye doc DR. Manley foot doc).Encounter Diagnosis: Annual Medicare Physical (V70.0), Breast screening (V76.10), Heart murmur, Elevated Blood Pressure without diagnosis of Hypertension (796.2) [facility] Office Visit On: 09-Jun-2014 9:51 Encounter Reason: Pre-Op Visit - The procedure scheduled is a Rt foot sx on 06/28/14. The surgeon for the procedure will be Dr. Manley.Encounter Diagnosis: PRE- OPERATIVE EXAMINATION, UNSPECIFIED (V72.84), COPD (chronic obstructive pulmonary disease), End: 09-Jun-2014 17:36 Heart murmur [facility] Phone Encounter On: 30-Mar-2014 15:01 Encounter Diagnosis: Unspecified Diagnosis End: 30-Mar-2014 15:03 [facility] Office Visit On: 03-Mar-2014 13:52 Encounter Reason: Follow up acute care visit - The patient feels the same and has decreased energy level. Patient has been compliant with instructions. Current medication use: no side effects, compliant with dosing regim End: 03-Mar-2014 14:11 en and not considered effective by patient. Patient sleeps 4 (broken ) hours per night. The medical issues the patient is following up for include All identified problems below and other (cough, sinusitis ).Encounter Diagnosis: Sinus congestion (478.19), Cough (786.2) [facility] Office Visit On: 13-Feb-2014 9:04 Encounter Reason: Sinusitis/ - The duration of the symptoms are 5 days The course has been worsening. The sinusitis/ has no relieving factors. Associated features include The symptoms have been associated with cough (unp End: 13-Feb-2014 9:23 roductive), ear pain (AD), nasal discharge/stuffy nose, sinus pain and teeth pain. No previous evaluations were reported.Encounter Diagnosis: Allergic rhinitis due to other allergen (477.8), Acute sinusitis, unspecified (461.9), Wheezing (786.07), Cough (786.2) [facility] Office Visit On: 07-Dec-2013 10:50 Encounter Reason: Sinusitis - The last clinic visit was 8 day(s) ago. No changes in management were made at the last visit. Symptoms include nasal congestion, forehead pain, forehead pressure, cough, ear fullness, ear pa End: 07-Dec-2013 12:34 in, ear pressure and headache. Onset was sudden. The patient describes this as severe and worsening. Associated symptoms do not include chills.Encounter Diagnosis: Acute sinusitis, unspecified (461.9), Wheezing (786.07), Cough (786.2) [facility] Phone Encounter On: 15-Jun-2013 11:17 Encounter Diagnosis: Post-menopausal (V49.81), Breast screening (V76.10) End: 15-Jun-2013 11:20 [facility] Office Visit On: 03-Jun-2013 13:06 Encounter Reason: Follow up for chronic medical issues - The patient feels well with minor complaints, has good energy level and is sleeping poorly. Patient has been compliant with instructions. Current medication use: n End: 03-Jun-2013 13:56 o side effects and compliant with dosing regimen. Patient sleeps 5 hours per night. Nutrition: balanced diet and supplemental vitamins. The medical issues the patient is following up for include All freddy ntified problems below, fibromyalgia and osteoporosis/osteopenia.Encounter Diagnosis: Fibromyalgia (729.1), Low HDL (272.5), Diverticulosis (562.10), Allergic rhinitis due to other allergen (477.8), Irritable bowel syndrome (564.1), Osteopenia (733.90), Post-menopausal (V49.81) [facility] Office Visit On: 23-Mar-2013 13:12 Encounter Reason: Cough - Symptoms include cough, wheezing and stuffy nose, while symptoms do not include chills, fever, sore throat or chest pain. The cough is described as non-productive. Cough onset was 2 week(s) ago. End: 24-Mar-2013 11:53 Symptoms are described as worsening. Associated symptoms include postnasal drainage and headache. The patient is not currently being treated for this problem. Note for Cough: she is a smoker- she had dry cough and tight in chest- she is using nasonex- not taking antihistamine- no sneexing or itchy water eyes - wheezing and sob- tight in chest -no feverEncounter Diagnosis: Cough (786.2), Wheezing (786.07) [facility] Office Visit On: 11-Nov-2012 9:10 Encounter Reason: Sinusitis/ - The duration of the symptoms are 1 week The course has been constant. The sinusitis/ has no relieving factors. Associated features include The symptoms have been associated with cough, ear End: 11-Nov-2012 9:48 pain, nasal discharge/stuffy nose and sinus pain. Note for Sinusitis/: so congested not able to get out. tried otc mucinex, jeannie cough syrupEncounter Diagnosis: Acute sinusitis, unspecified (461.9) [facility] Office Visit On: 12-Jul-2012 11:10 Encounter Reason: Well Women Exam - The patient feels well with minor complaints, has good energy level and is sleeping well. Pap smear: date of last pap: (07/08). Contraceptive history: The patient is not using any meth End: 12-Jul-2012 13:57 od of contraception at this time. Patient exercises every other day. The patient reports that she performs monthly self breast exam. Calcium intake includes 1200 mg daily supplment. The patient denies t he use of oral contraceptives or hormone replacement therapy.Encounter Diagnosis: Well Woman Exam (V72.31) (Pap,Mammo,Routine Female) (Renamed from Well Woman V72.31 (p,m)), Family history of malignant neoplasm of breast (V16.3) [facility] Office Visit On: 01-Jul-2012 8:43 Encounter Reason: Follow up for chronic medical issues - The patient feels well with minor complaints, has decreased energy level and is sleeping poorly. Patient has been compliant with instructions. Current medication u End: 01-Jul-2012 10:50 se: no side effects and compliant with dosing regimen. Patient sleeps 5 hours per night. Nutrition: balanced diet and supplemental vitamins. The medical issues the patient is following up for include All identified problems below. Encounter Diagnosis: SCREENING, MLIG NEOP, OTHER BREAST EXM (V76.19), Cough (786.2), BRONCHITIS, NOT SPECIFIED ACUTE OR CHRONIC (490.), Wheezing (786.07), Bacterial pneumonia, unspecified (482.9), Diverticulosis (562.10), Fibromyalgia (729.1), Constipation(564.00), Irritable bowel syndrome (564.1) [facility] Office Visit On: 27-Feb-2012 8:55 Encounter Reason: Follow up acute care visit - The patient feels the same. Patient has been compliant with instructions. Current medication use: no side effects, compliant with dosing regimen and not considered effective End: 27-Feb-2012 9:42 by patient. Patient sleeps 5 hours per night. Impact of disease: emotional impact- mild. Nutrition: balanced diet. The medical issues the patient is following up for include URI.Encounter Diagnosis: Wheezing (786.07), Cough (786.2), BRONCHITIS, NOT SPECIFIED ACUTE OR CHRONIC (490.) [facility] Office Visit On: 16-Feb-2012 13:54 Encounter Reason: Cough - The onset of the cough has been sudden. The cough is characterized as productive of mucoid sputum. The amount of sputum produced is less than a half a cup per day. The cough occurs all the time End: 16-Feb-2012 14:27 . The symptoms are aggravated by supine posture. The symptoms have been associated with hoarseness, runny nose and sore throat, while the symptoms have not been associated with fever, headache or wheezing. the color of the sputum is greenish. Encounter Diagnosis: Cough (786.2), Wheezing (786.07), BRONCHITIS, NOT SPECIFIED ACUTE OR CHRONIC (490.) [facility] Office Visit On: 08-Jul-2011 12:08 Encounter Reason: CoughEncounter Diagnosis: Allergic rhinitis due to other allergen (477.8), Cough (786.2) End: 08-Jul-2011 12:59 [facility] Office Visit On: 01-Jul-2011 9:02 Encounter Reason: Well Women Exam - The patient does not feel well, has decreased energy level and is sleeping poorly. Pap smear: date of last pap:. Contraceptive history: The patient is not using any method of contracep End: 01-Jul-2011 10:35 tion at this time. Patient does not exercise. The patient reports that she performs monthly self breast exam. Previous evaluations: hysterectomy. The patient denies the use of oral contraceptives or hormone replacement therapy.Encounter Diagnosis: Well Woman Exam (V72.31) (Pap,Mammo,Routine Female) (Renamed from Well Woman V72.31 (p,m)) [facility] Office Visit On: 23-Jun-2011 11:10 Encounter Reason: Cough - The last clinic visit was 2 week(s) ago. No changes in management were made at the last visit. Symptoms include cough, wheezing and runny nose, while symptoms do not include fever, stuffy nose, End: 23-Jun-2011 13:06 sore throat or vomiting. The cough is described as hacking, wheezy, moist and productive. Cough onset was sudden week(s) ago. There is no known event that preceded symptom onset. The cough occurs consta ntly. Symptoms are described as severe and worsening. Symptoms are exacerbated by lying down, while symptoms are not exacerbated by smoke exposure, pollen exposure or animal exposure. Symptoms are not r elieved by air conditioning, resting, lying down or sitting up. Associated symptoms include postnasal drainage, mouth breathing, hoarseness and headache, while associated symptoms do not include painful swallowing, eye itching or nose itching. Current treatment includes nonsteroidal anti-inflammatory drugs, antihistamines and decongestants.Encounter Diagnosis: Acute sinusitis, unspecified (461.9), Bacterial pneumonia, unspecified (482.9), Abnormal Lung Sounds/Rales (786.7) [facility] Office Visit On: 18-Dec-2010 13:42 Encounter Reason: Follow up acute care visit - The patient feeling better since last seen and improving. Patient has been compliant with instructions. Current medication use: no side effects, compliant with dosing regime End: 18-Dec-2010 13:55 n and considered effective by patient. Patient sleeps 5 hours per night. The medical issues the patient is following up for include All identified problems below and other (candidiasis, cough).Encounter Diagnosis: Acute sinusitis, unspecified (461.9) , CANDIDIASIS, MOUTH (THRUSH) (112.0) [facility] Office Visit On: 13-Dec-2010 10:35 Encounter Reason: Tongue pain - The onset of the pain has been sudden and has been occurring in a persistent pattern for 1 day. The course has been constant. The pain is described as moderate.Encounter Diagnosis: CANDIDIASIS, MOUTH (THRUSH) (112.0), End: 13-Dec-2010 10:59 Burning Tongue (Glossodynia) (529.6), Cough (786.2) [facility] Office Visit On: 09-Dec-2010 11:52 Encounter Reason: Sinus pain - The pain has been occurring in a persistent pattern for 6 weeks. The course has been constant.Encounter Diagnosis: WHEEZING, NOS (786.09), Acute sinusitis, unspecified (461.9) End: 09-Dec-2010 12:40 [facility] Office Visit On: 12-Nov-2010 14:32 Encounter Reason: Sinus pain - The onset of the pain has been acute and has been occurring in a persistent pattern for 4 days. The course has been constant and increasing in severity. The pain is characterized as tightne End: 12-Nov-2010 15:09 ss and a pressure sensation. The pain is described as being located in the frontal area. The symptoms have been associated with sinusitis in the past, sore throat and tenderness over sinuses.Encounter Diagnosis: Acute sinusitis, unspecified (461.9) [facility] Office Visit On: 03-Jul-2010 10:09 [facility] End: 03-Jul-2010 10:44 Office Visit On: 03-Jul-2010 8:48 Encounter Reason: Well Women Exam - The patient feels well with minor complaints ,has decreased energy level and is sleeping poorly. Pap smear: date of last pap: (?). Contraceptive history: The patient is not using any m End: 03-Jul-2010 9:51 ethod of contraception at this time. Patient does not exercise. The patient reports that she performs monthly self breast exam. Previous evaluations: hysterectomy. The patient denies the use of oral contraceptives. Encounter Diagnosis: Well Woman Exam (V72.31) (Pap,Mammo,Routine Female) (Renamed from Well Woman V72.31 (p,m)), SYMPTOM, DYSURIA (788.1) [facility] Office Visit On: 14-Jun-2010 13:50 Encounter Reason: UTI - The urinary symptoms are described as painful urination ,frequency and burning. The symptoms have been occurring for 1 weeks and have been constant. The urine is described as clear. There has been End: 14-Jun-2010 14:38 no associated abdominal pain or low back pain. There is no medical history of kidney stones or recurrent urinary tract infections. The patient denies the use of oral contraceptives ,antibiotics ,hormone replacement therapy or pyridium/uristat. Encounter Diagnosis: SYMPTOM, DYSURIA (788.1), Hematuria (599.7) [facility] Office Visit On: 07-Jun-2010 9:40 Encounter Reason: UTI - The urinary symptoms are described as painful urination ,frequency ,urgency and burning. The symptoms have been occurring for 1 days and have been constant. The urine is described as clear. There End: 07-Jun-2010 10:12 has been no associated abdominal pain ,nausea or low back pain. There is no medical history of kidney stones or recurrent urinary tract infections. The patient denies the use of oral contraceptives ,ant ibiotics ,hormone replacement therapy or pyridium/uristat. Note for UTI: hx of blood in urine and polyps and had vaginal discharge x 1 moEncounter Diagnosis: SYMPTOM, DYSURIA (788.1), Hematuria (599.7) [facility] Office Visit On: 08-Nov-2009 11:57 Encounter Reason: Sinusitis/ - The duration of the symptoms are 4 days The course has been worsening. The sinusitis/ has no relieving factors. Associated features include The symptoms have been associated with cough ,sebastián End: 08-Nov-2009 12:38 al discharge/stuffy nose ,sinus pain and teeth pain, while the symptoms have not been associated with ear pain. No previous evaluations were reported. Encounter Diagnosis: Acute sinusitis, unspecified (461.9) [facility] Office Visit On: 15-Jun-2009 7:58 Encounter Reason: Well Women Exam - The patient feels well with minor complaints ,has good energy level and is sleeping poorly. Pap smear: date of last pap: (3 yrs). Contraceptive history: The patient is not using any me End: 15-Jun-2009 8:31 thod of contraception at this time. Patient does not exercise. The patient reports that she performs monthly self breast exam. Calcium intake includes 1200 mg daily supplment. Previous evaluations: hyst erectomy. The patient denies the use of oral contraceptives or hormone replacement therapy. Encounter Diagnosis: Well Woman Exam (V72.31) (Pap,Mammo,Routine Female) (Renamed from Well Woman V72.31 (p,m)), Family history of malignant neoplasm of breast (V16.3), Allergic rhinitis due to other allergen (477.8) [facility] Office Visit On: 15-Mar-2009 14:38 Encounter Reason: Follow up acute care visit - The patient feeling better since last seen. Patient has been compliant with instructions. Current medication use: no side effects and compliant with dosing regimen. Patient End: 15-Mar-2009 15:57 sleeps 6 hours per night. Nutrition: balanced diet. The medical issues the patient is following up for include other (neck pain, allergies). Encounter Diagnosis: Neck pain (723.1), Allergic rhinitis due to other allergen (477.8) [facility] Office Visit On: 08-Mar-2009 16:25 Encounter Diagnosis: Unspecified Diagnosis End: 08-Mar-2009 16:26 [facility] Annotation/Addendum On: 06-Mar-2009 11:59 Encounter Diagnosis: Acute sinusitis, unspecified (461.9) End: 06-Mar-2009 12:02 [facility] Office Visit On: 05-Mar-2009 15:04 Encounter Reason: Sinus pain - The onset of the pain has been acute and has been occurring in an intermittent pattern for months. The course has been recurrent (fighting it since August). The pain is characterized as a End: 05-Mar-2009 15:57 pressure sensation. The pain is experienced any time of the day (no diurnal variation). The pain is described as being located in the frontal area. The symptoms have been associated with nasal discharg e/stuffy nose ,neck pain (d/t injury) ,sinusitis in the past and tenderness over sinuses. , [ADDITIONAL REASON] Neck pain - The onset of the neck pain has been sudden following an incident not at work (carrying something heavy, felt a pop) and has been occurring in a persistent pattern for 6 months. The course has been constant. The neck pain is described as a moderate sharp stabbing. The neck pain is described as being located in the below ear (LEFT side). The back pain does not radiate There have been no aggravating factors. The back pain is relieved by medication. Encounter Diagnosis: Acute sinusitis, unspecified (461.9), Allergic rhinitis due to other allergen (477.8), Cough (786.2), Wheezing (786.07), Neck pain (723.1) [facility] Office Visit On: 31-Jul-2008 14:58 Encounter Reason: Cough - The onset of the cough has been sudden and 2 weeks ago. The cough is characterized as productive of mucoid sputum. The amount of sputum produced is scanty. The cough occurs all the time. The sym End: 31-Jul-2008 16:03 ptoms are aggravated by supine posture and particular position, but not by meals. The symptoms have been associated with headache ,hoarseness ,sore throat and wheezing, while the symptoms have not been associated with fever. the color of the sputum is purulent and yellowish. Encounter Diagnosis: BRONCHITIS, NOS (490.), Abnormal Lung Sounds/Rales (786.7) [facility] Office Visit On: 23-Jun-2008 7:51 Encounter Reason: Well Women Exam - The patient feels well with minor complaints ,has good energy level and is sleeping well. Pap smear: date of last pap: (?). Contraceptive history: The patient is not using any method o End: 23-Jun-2008 8:36 f contraception at this time. Patient exercises a weekly. The patient reports that she performs monthly self breast exam. Calcium intake includes 1 serving milk daily. Previous evaluations: hysterectomy . The patient denies the use of oral contraceptives or hormone replacement therapy. Menstruation: Last menstrual period date: (hyster 20 years ago). , [ADDITIONAL REASON] Follow up, Diagnostic Procedure Results - Diagnostic tests include mammography. Date: (06/09/08). Encounter Diagnosis: Well Woman Exam (V72.31) (Pap,Mammo,Routine Female) (Renamed from Well Woman V72.31 (p,m)), Fibromyalgia (729.1), Low HDL (272.5) [facility] Office Visit On: 16-Aug-2007 8:34 Encounter Reason: Follow up, Laboratory Test Results - Date: (07-21-07 on face sheet). Encounter Diagnosis: Osteopenia (733.90), Fibromyalgia (729.1), Family history of diabetes mellitus (V18.0), End: 16-Aug-2007 11:07 SCREENING FOR OTHER SPECIFIED ENDOCRINE, NUTRITIONAL, METABOLIC, AND IMMUNITY DISORDERS (V77.99), Visual Change (443.9) [facility] Office Visit On: 21-Jun-2007 15:19 Encounter Reason: Well Women Exam - The patient feels well with minor complaints ,has decreased energy level and is sleeping poorly. Pap smear: date of last pap: (2 years ago). Contraceptive history: The patient is not u End: 21-Jun-2007 15:47 sing any method of contraception at this time. Patient exercises 3 - 4 times per week. The patient's libido is absent. The patient reports that she performs monthly self breast exam. Previous evaluation s: hysterectomy/bilateral salpingotomy. The patient denies the use of oral contraceptives or hormone replacement therapy. Encounter Diagnosis: Well Woman Exam (V72.31) (Pap,Mammo,Routine Female) (Renamed from Well Woman V72.31 (p,m)) [facility] Office Visit On: 01-Feb-2007 16:35 Encounter Reason: Follow up for chronic medical issues - The patient feels well with no complaints ,has good energy level and is sleeping well. Patient has been compliant with instructions. Current medication use: no maría elena End: 01-Feb-2007 17:22 e effects ,compliant with dosing regimen and considered effective by patient. Patient sleeps 6 (with elavil) hours per night. Impact of disease: no overall impact. Nutrition: balanced diet. The medical issues the patient is following up for include All identified problems below and fibromyalgia. Encounter Diagnosis: Fibromyalgia (729.1), Peptic Ulcer, Osteopenia (733.90), Family history of diabetes mellitus (V18.0) [facility] Historical Summary On: 19-Nov-2006 7:16 [facility] End: 19-Nov-2006 7:21 Office Visit On: 18-Nov-2006 15:02 Encounter Reason: new patient female physical - Last seen less than 1 month ago. General health: feels well with minor complaints (cold and congestion started yesterday am) ,has decreased energy level and is sleeping poo End: 18-Nov-2006 16:15 rly. The patient's appetite is normal. Nutrition: normal/adequate. Exercises 0 (going to be working out on a treadmill they just bought it yesterday) days per week. Normal bowel and bladder habits. There are no current emotional problems. Encounter Diagnosis: Fibromyalgia (729.1), Sinus congestion (478.19) [facility] Payers MedicareAnthem/SupplementLeyla hernandez guarantor
--- OUTSIDE RECORDS SUMMARY | 2018-10-26 21:07 | XMS RPT_ITS | Continuity of Care Document ---
:1945 Author Organization [facility] Address [address] [facility] [address] [place] [address] Phone Care Team Providers Name Role Phone Nelia Smith DO Unavailable Andrei GUNTER, Dr. Yas Hurt Unavailable Dr. Yves Foster Unavailable RIYA Sorensen Unavailable Unavailable Monik Salas Unavailable Unavailable Albina Rodriguez CNP Unavailable Unavailable Unavailable Problems Name Dates Details Abnormal EKG (R94.31, 794.31) Status: Active Allergic rhinitis due to other allergen (J30.89, 477.8) Comments: note written forHSA for otc meds Status: Active Annual Medicare Phyiscal WITHOUT abnormal findings (Renamed from Encounter for general adult medical examination without abnormal findings) (Z00.00, V70.9) Status: Active Aortic aneurysm, abdominal (I71.4, 441.4) Comments: stable & repaired - followed by surgeonrasta CP, abdominla pain Status: Active Aortic dissection, thoracic [...] 24 Dr crwoley Cystoscopy Status: Active BMI 31.0-31.9,adult (Z68.31, V85.31) Status: Active BMI 32.0-32.9,adult (Z68.32, V85.32) Status: Active Body mass index 31.0-31.9, adult (Renamed from BMI 31.0-31.9,adult) (Z68.31, V85.31) Status: Active Carotid occlusion, bilateral (I65.23, 433.10) Status: Active Chronic obstructive asthma with acute [...] for malignant neoplasms, colon) (Z12.11, V76.51) Comments: scope due next -2018 Status: Active Encounter for screening for malignant [...] immunization against influenza) (Z23, V04.81) Status: Active Need for prophylactic vaccination and inoculation against influenza (Renamed from Need for immunization against influenza) (Z23, V04.81) Status: Active Nonsmoker (Z78.9, V49.89) Status: Active Non-smoker (Z78.9, V49.89) Status: Active Osteopenia (M85.80, 733.90) Comments: dexa 09/13 Status: Active Pain in joint, upper arm, right (M25.521, 719.42) Comments: new develpment Status: Active PFO (patent foramen ovale) (Q21.1, 745.5) Comments: negative bubble study on echo 2018 Status: Active Post-menopausal (Z78.0, V49.81) Comments: last dexa 2017 Status: Active Pregnancies () Comments: 2 Status: [...] Start : 05-Feb-2015 End : 10-Apr-2015 Inactive JEANNIE-Ke[facility]ERGY [facility] CONGESTION, 60-120MG (Oral Tablet Extended Release 12 Hour) 1 Tablet ER 12HR q12hr for 0 days Quantity: 20 {Tablet_ER_12HR} Refills: 0 Ordered:16-Feb-2012 Rosy Tuttle LPN Start : 08-Jul-2011 End : 16-Feb-2012 Inactive AMBIEN, 5MG (Oral Tablet) 1 (one) Tablet qhs prn for 30 days Quantity: 10 {Tablet} Refills: 0 Ordered:14-Dec-2015 Jennifer HARRIS Josseline Start : 14-Dec-2015 End : 14-Dec-2015 Inactive [...] days Quantity: 20 {Tablet} Refills: 0 Ordered:14-Oct-2016 Albina Rodriguez CNP Start : 14-Oct-2016 End : 24-Oct-2016 Inactive BIAXIN, 500MG (Oral Tablet) 1 Tablet bid for 0 days Quantity: 20 {Tablet} Refills: 0 Ordered:01-Jul-2012 Jaimee Sorensen LPN Start : 27-Feb-2012 End : 01-Jul-2012 Inactive Comments:will call if needvoid after 30 days CALMOSEPTINE, 0.44-20.6% (External Ointment) 1 (one) Ointment bid prn for 30 days Refills: 0 Ordered:15-Jan-2016 Albina Rodriguez CNP Start : 14-Dec-2015 End : 13-Jan-2016 Inactive CHERATUSSIN AC, 100-10MG/5ML (Oral Syrup) 1 Teaspoon(s) q hs prn cough for 0 days Quantity: 6 {Ounce(s)} Refills: 0 Ordered:01-Jul-2012 Jaimee Sorensen LPN Start : 27-Feb-2012 End : 01-Jul-2012 Inactive CIPRO, 500MG (Oral Tablet) 1 Tablet bid for 10 days Quantity: 20 {Tablet} Refills: 0 Ordered:14-Jun-2010 Luis REA NeliaLuis Nelia Start : 14-Jun-2010 End : 24-Jun-2010 Inactive [...] 1 tab bid (50 MG) Inactive Comments:per [facility] MYCELEX, 10MG (Mouth/Throat Nola) 1 Nola 5 x daily for 10 days Quantity: 50 Refills: 0 Ordered:13-Dec-2010 Rosy Tuttle LPN Start : 13-Dec-2010 End : 23-Dec-2010 Inactive MYRBETRIQ, 25MG (Oral Tablet Extended Release 24 Hour) 1 (one) Tablet ER 24HR daily (25 MG) Start : 16-Jan-2016 Inactive Comments:Dr. Lu BOWENACORT AQ, 55MCG/ACT (Nasal Aerosol Solution) 2 (two) [...] days Quantity: 6 {Tablet} Refills: 0 Ordered:21-Oct-2016 Luis REA NeliaLaurenlilly REA Nelia Start : 21-Oct-2016 End : 26-Oct-2016 Inactive [...] days Quantity: 1 {Inhaler} Refills: 3 Ordered:24-Oct-2016 Stanford Paz Start : 14-Oct-2016 End : 24-Oct-2016 Inactive PROBIOTIC & ACIDOPHILUS EX ST (Oral Capsule) Inactive PYRIDIUM, 100MG (Oral Tablet) 1 Tablet tid for 2 days Quantity: 6 {Tablet} Refills: 0 Ordered:11-Jun-2010 Jennifer HARRISAlbina Start : 07-Jun-2010 End : 09-Jun-2010 Inactive [...] Tablet Delayed Release) 1 (one) Tablet DR Shawn DR qd for 30 days Refills: 0 [...] Foster MULTI-DAY PLUS IRON (Oral Tablet) [facility] Tablet QD for 0 days Refills: [...] of 19-Apr-2015 Procedures Procedure Dates Details appendectomy 1965 Completed breast biopsy/mastectomy 2001 Completed Colonoscopy Completed Comments: 2000 hysterectomy Completed Comments: 1988 kidney/bladder polyps 1971 Completed Sigmoidoscopy Completed Comments: 1990 Skin Cancer Completed Comments: Removal [facility] tubal ligation 1971 Completed Date Value Details 29-Jan-2018 12 Lead Electrocardiogram Result: Comments: See Note; NOTES: [facility] Cardiovascular Services [address] [place] [address] 12 Lead EKG 01/25/181937 MR#: [id number] Acct: [id number] Name: LEYLA RIOJAS Rep #: [id number] : 1945 72 From: Ceasar Wagner MD [...] ECG Confirmed by CEASAR WAGNER MD ([id number]), editorial director TARA SERRANO ([id number]) on 01/29/2018 3:16:23 PM Referred By: LIZETH Confirmed By:CEASAR WAGNER MD 01/29/18 1516 Date Ceasar Wagner MD CC: Laura Alves MD; Nelia Smith DO Signed 25-Jan-2018 Emergency Department Summary Result: Comments: See Note; NOTES: [facility] Medical Records Department [address] [place] [address] Emergency Department Summary 01/25/181937 MR#: [id number] Acct: [id number] Name: LEYLA RIOJAS Rep #: [id number] : 1945 72 From: Laura Alves MD [...] pression: Diarrhea This note was generated with [employer] dictation software. It may contain incorrect words, spelling, and punctuation that were not noted in review of the chart prior to signing ED D isposition - Plan for ED Patient: Chief Complaint: GI Bleed Instructions: ED Diarrhea Viral Referrals: Nelia Smith, [Primary Care Provider] - What to do if you have Problems For any increase d pain, shortness of breath, bleeding, nausea or vomiting, chest pain, or any unexpected problems, contact your Primary Care Provider. Call Doctors Registry ([phone]) or [facility]. Call 911 if necessary. 01/25/188 <Electronically signed by Laura Alves MD> Date Laura Alves MD Cosigner Sign ature (If Indicated): Date CC: Nelia Smith DO 25-Jan-2018 Discharge Instruction Result: Comments: See Note; NOTES: [facility] Medical Records Department [address] [address] Discharge Instruction 01/25/182223 MR#: [id number] Acct: [id number] Name: LEYLA THOMPSON Rep #: [id number] : 1945 72 From: Laura Alves MD PCP: Nelia Smith DO Status: REG ER ED Disposition - Plan for ED Patient: Chief Complaint: GI Bleed Instructions: ED Diarr hea Viral Referrals: Nelia Smith DO [Primary Care Provider] - What to do if you have Problems For any increased pain, shortness of breath, bleeding, nausea or vomiting, chest pain, or any unexp ected problems, contact your Primary Care Provider. Call [employer] [facility] ([phone]) or report to the closest Emergency Room. Call 911 if necessary. 01/25/182224 <Electronically signed by Laura Alves MD> Date Laura Alves MD Cosigner Signature (If Indicated): Date CC: Nelia Smith DO 09-Oct-2017 Echocardiogram Complete Result: Comments: See Note; NOTES: [facility] Cardiovascular Services [address] [place] [address] Echo Complete 10/08/17 1244 MR#: [id number] Acct: [id number] Name: LEYLA RIOJAS Rep #: [id number] : 1945 72 From: Zaki Dick MD Attending Dr: Nelia Smith DO Status: REG CLI Ordering Dr: Nelia Smith DO Date: 10/08/17 Location: [facility] Sex: F C Admitted: [facility] For Study: ABN EKG Procedure This [...] Referring Physician: Nelia Smith Performed By: Marcia Ruiz RDCS, RVT 10/09/17 1136 Date Zaki Dick MD CC: Nelia Smith DO Date Dictated: 10/08/17 1244 Date Transcribed: 10/09/17 1136 Sports Teacher: Signed 30-Sep-2017 Stress Report Result: Comments: See Note; NOTES: [facility] Cardiovascular Services [address] [place] [address] MR#: [id number] Acct: [id number] Name: LEYLA RIOJAS Rep #: [id number] : 1 10/25/1944 72 From: Ceasar Wagner MD Primary Care: Nelia Smith DO Status: REG CLI Ordering Dr: Sex: F [...] functional aerobic im pairment. Preserved ejection fraction. 09/30/17943 <Electronically signed by Ceasar Wagner MD> Date Ceasar Wagner MD CC: Nelia Smith DO Date Dictated: 09/30/17937 Date Transcribed: 09/30/17937 Sports Teacher: [place] Signed 22-Sep-2017 Dexa Bone Density Study (HP) Result: Comments: See Note; NOTES: [facility] Imaging Services [address] [place] [address] Dexa Bone Density Study (HP) MR#: [id number] Acct: [id number] Name: LEYLA RIOJAS Rep #: [id number] : 1945 F 72 From: Lazaro Abrams MD PCP: Nelia Smith DO Status: [facility] CLI Study: Dexa Bone Density Study (HP) Date of Exam: 09/22/17 Exam# [id number] Ordering Dr: Yojana Smith DO STUDY: DUAL [...] Lazaro Abrams MD at 14:49 EST Tel [phone], Service support , CC: Nelia Smith DO Sports Teacher: Signed 22-Sep-2017 SCREENING MAMM (CAD), BILAT Result: Comments: See Note; NOTES: [facility] Imaging Services [address] [place] [address] SCREENING MAMM (CAD), BILAT MR#: [id number] Acct: [id number] Name: LEYLA RIOJAS Rep #: [id number] : 1945 F 72 From: Armen Smith MD PCP: Nelia Smith DO Status: REG CLI Study: SCREENING MAMM (CAD), BILAT Date of Exam: 09/22/17 Exam# [id number] Ordering Dr: Pattie Smith DO MAMMOGRAPHY - [...] delay biopsy of a clinically suspicious abnormality. [id number] Elec tronically Signed: Armen Smith MD at 12:16 EST , Service support , CC: Nelia Smith DO Sports Teacher: Signed 22-Sep-2017 SCREENING MAMM (CAD), BILAT Result: Comments: See Note; NOTES: [facility] Imaging Services [address] [place] [address] SCREENING MAMM (CAD), BILAT MR#: [id number] Acct: [id number] Name: LEYLA RIOJAS Rep #: [id number] : 1945 F 72 From: Armen Smith MD PCP: Nelia Smith DO Status: REG CLI Study: SCREENING MAMM (CAD), BILAT Date of Exam: 09/22/17 Exam# [id number] Ordering Dr: Pattie Smith DO MAMMOGRAPHY - [...] delay biopsy of a clinically suspicious abnormality. [id number] Elec tronically Signed: Armen Smith MD at 12:16 EST , Service support , CC: Nelia Smith DO Sports Teacher: Signed 24-Aug-2017 CTA Chest W/WO Contrast Result: Comments: See Note; NOTES: [facility] Imaging Services [address] [place] [address] CTA Chest W/WO Contrast MR#: [id number] Acct: [id number] Name: LEYLA RIOJAS Rep #: [id number] : 1945 F 71 From: Mario Ohara MD PCP: Nelia Smith DO Status: [facility] CLI Study: CTA Chest W/WO Contrast Date of Exam: 08/24/17 Exam# [id number] Ordering Dr: Nelia Smith DO [facility] CTA CHEST REASON FOR EXAM: Female, 71 [...] Tel , Service support , CC: FLAVIA Smith DO Sports Teacher: Signed 25-May-2017 OT D/C of Non Returning Pt Result: Comments: See Note; NOTES: [facility] Occupational Therapy Health[address] [place] [address] Fax REHABILITATION SERVICES DIS CHARGE SUMMARY MR#: [id number] Acct: [id number] Name: LEYLA RIOJAS Rep #: [id number] : 1945 71 From: Keysha Anderson Referring : Jb Yepez DO Status: REG RCR Eval Date: harge Date: HP - Discharge Summary - Patient [...] taken upon last appointment including the following: environment artist R 37, L 41, lateral R 8 [...] CC: Nelia Smith DO; Jb Yepez DO VERONICA Signed 16-Apr-2017 Emergency Department Summary Result: Comments: See Note; NOTES: [facility] Medical Records Department [address] [place] [address] Emergency Department Summary 04/16/17 0216 MR#: [id number] Acct: [id number] Name: LEYLA RIOJAS Rep #: [id number] : 1945 71 From: Eugenia Armstrong MD [...] examination reveals some abrasions on the left buddhist. Pupils are equal and reactive. No C-spine [...] General, ED Splint Care Velcro Referrals: Nelia Smith, DO [Primary Care Provider] - 1 Week What to do if you have Problems For any increased pain, shortness of breath, bleeding, nausea or vomiting, chest pain, or any unexpected problems, contact your Primary Care Provider. Call [facility] Registry ([phone]) or report to the closest Emerge ncy Room. Call 911 if necessary. 04/16/17 0218 <Electronically signed by Eugenia Armstrong MD> Date Eugenia Armstrong MD Cosigner Signatu re (If Indicated): Date CC: Nelia Husseinon 15-Apr-2017 Discharge Instruction Result: Comments: See Note; NOTES: [facility] Medical Records Department [address] [place] [address] Discharge Instruction 04/15/172026 MR#: [id number] Acct: [id number] Name: LEYLA THOMPSON Rep #: [id number] : 1945 71 From: Eugenia Armstrong MD [...] your Primary Care Provider. Call [facility] Registry ([phone]) or report to the closest [facility] Room. Call 911 if necessary. 04/15/172027 <Electronically signed by Eugenia Armstrong MD> Date Eugenia castillo (If Indicated): Date CC: Nelia Smith DO 15-Apr-2017 Brain/Head without Contrast Result: Comments: See Note; NOTES: [facility] Imaging Services [address] [place] [address] Verdana 4d Brain/Head without Contrast MR#: [id number] Acct: [id number] Name: Nelly RIOJAS Rep #: [id number] : 1945 F 71 From: Eugenia Pabon MD PCP: Nelia Smith DO Status: REG ER Study: Brain/Head without Contrast Date of Exam: 04/15/17 Exam# [id number] Ordering Dr: Eugenia Armstrong MD STUDY: CT [...] Eugenia Pabon MD at 18:55 EDT Tel [phone], Service support , CC: Eugenia darby MD; Nelia Smith DO Sports Teacher: Signed 15-Apr-2017 Chest without Contrast Result: Comments: See Note; NOTES: [facility] Imaging Services [address] [place] [address] Verdana 4d Chest without Contrast MR#: [id number] Acct: [id number] Name: LEYLA RIOJAS Rep #: [id number] : 1945 F 71 From: Eugenia Pabon MD PCP: Nelia Smith DO Status: REG ER Study: Chest without Contrast Date of Exam: 04/15/17 Exam# [id number] Ordering Dr: Eugenia Armstrong MD STUDY: CT [...] Eugenia Pabon MD at 19:26 EDT Tel [phone], Service support , CC: Eugenia Armstrong MD; Nelia Smith DO Sports Teacher: Signed 15-Apr-2017 Hand Min 3 Views Result: Comments: See Note; NOTES: [facility] Imaging Services [address] [place] [address] Verdana 4d Hand Min 3 Views MR#: [id number] Acct: [id number] Name: LEYLA RIOJAS Rep #: [id number] : 1945 F 71 From: Eugenia Pabon MD PCP: Nelia Smith DO Status: REG ER Study: Hand Min 3 Views Date of Exam: 04/15/17 Exam# [id number] Ordering Dr: Eugenia Armstrong MD STUDY: X-RAY [...] Eugenia Pabon MD at 19:09 EDT Tel [phone], Service support , CC: Eugenia Armstrong MD; Nelia Smith DO Sports Teacher: Signed 15-Apr-2017 Hand Min 3 Views Result: Comments: See Note; NOTES: [facility] Imaging Services [address] [place] [address] Rickdajh 4d Hand Min 3 Views MR#: [id number] Acct: [id number] Name: LEYLA RIOJAS Rep #: [id number] : 1945 F 71 From: Eugenia Pabon MD PCP: Nelia Smith DO Status: REG ER Study: Hand Min 3 Views Date of Exam: 04/15/17 Exam# [id number] Ordering Dr: Eugenia Armstrong MD STUDY: X-RAY [...] Eugenia Pabon MD at 19:14 EDT Tel [phone], Service support , CC: Eugenia Armstrong MD; Nelia Smith DO Sports Teacher: Signed 27-Mar-2017 OT General Evaluation Result: Comments: See Note; NOTES: [facility] 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 Date of Evaluation: 03/17/17 Occupational Therapist: Keysha Anderson - Subjective Subjective: Pt., Leyla, noted that she has increased pain in L thumb although R hand dominant. SHe was recievin g PT at [facility] prior and noted it only aggrevated symptoms. - Pain Left Wrist 6 Pain Intensity Range: 8 - ROM ROM Comments: ROM assessment to be completed at later da te as computer crashed and values were lost. - Strength Transportation Technician: R L Lateral Pinch: R L Tripod Pinch: R L Tip-to-Tip Pinch: R L Strength Comments: Strength assessment to be completed at later date as comp uter crashed and values were lost. - DASH-Disabilities of Arm, Shoulder AND Hand DASH Sum: 45 - Goals Goal:: Pt. to be mod I to understand and implement Jt protection and energy conservation technique s 4/5 % of the time to increase (I) and decrease pain by time of d/c. Goal:: Pt. to demo understanding and correct don/doff cycle of L thumb spica splint to decrease pain and increase (I) for 80 % of opportunities to promote (I) in ADL/IADLS by time of d/c. - Rehabilitation General Assessment: Pt., Leyla, is s/p OA of L CMC area. [...] the opportunity to evaluate your patient. For [facility] and Medicare HMO plans, please review the plan of care and approve it. It will need to be FAXED BACK to us at [phone] for Medicare purposes. Please let me know if there are questions or conc erns regarding this plan of care. Physician Signature: Date: <Electronically signed by Keysha Anderson > 03/27/17 1653 CC: Nelia Smith DOBaljinder Yepez DO KMB Signed For Medicare only, by signing this I certify the plan of care. Physicians Signature Date 05-Feb-2017 NCS and/or EMG Patient Result: Comments: See Note; NOTES: [facility] Pulmonary Services/Neurology [address] [place] [address] NCS and/or EMG Patient MR#: [id number] Acct: [id number] Name: LEYLA RIOJAS Rep #: [id number] : 1945 71 From: Anuel Day Referring Dr: Jb Yepez DO Status: REG CLI Ordering Dr: Jb Yepez DO Date: 02/04/17 Location: [facility] Sex: F C DATE OF SERVICE: 02/04 [...] referral. Anuel Day MD T: NTS JOB: [id number] 02/05/176 <Electronically signed by Anuel Day > Date Anuel Day CC: Nelia Smith DO; ANUEL DAY; Jb Yepez DO Date Dictated: 02/04/17903 Date Transcribed: 02/04/17903 Sports Teacher: Signed 31-Dec-2016 Venous Duplex Upper Extremity Result: Comments: See Note; NOTES: [facility] Cardiovascular Services [address] [place] [address] [place] [address] Venous Duplex US, Unilateral 12/30/16 1328 MR#: [id number] Acct: [id number] Name: LEYLA BARRETO Rep #: [id number] : 1945 71 From: Jose Pardo MD Attending Dr: Jb Yepez DO Status: REG CLI Ordering Dr: Jb Yepez DO Date: 12/30/16 Location: [facility] Sex: F C Admitte d: Reason For [...] Dictated: 12/30/16 1328 Date Transcribed: 12/31/16 0634 Sports Teacher: Signed 20-Oct-2016 Chest PA and Lateral Result: Comments: See Note; NOTES: [facility] Imaging Services [address] [place] [address] Rickdana 4d Chest PA and Lateral MR#: [id number] Acct: [id number] Name: LEYLA RIOJAS Rep #: [id number] : 1945 F 71 From: Zander Newell MD PCP: Nelia Smith DO Status: REG CLI Study: Chest PA and Lateral Date of Exam: 10/20/16 Exam# [id number] Ordering Dr: Angle Smith DO STUDY: X-RAY [...] at 3:52 EST Tel , Service support [phone], CC: Nelia Smith DO Sports Teacher: Signed 15-Aug-2016 Bilat Scrn Digital AND CAD Result: Comments: See Note; NOTES: [facility] Imaging Services [address] [place] [address] Verdana 4d Bilat Scrn Digital AND CAD MR#: [id number] Acct: [id number] Name: PRISCA RIOJAS Rep #: [id number] : 1945 F 70 From: Lazaro Abrams MD PCP: Nelia Smith DO Status: REG CLI Study: Bilat Scrn Digital AND CAD Date of Exam: 08/15/16 Exam# [id number] Ordering Dr: Nelia Hernandez DO MAMMOGRAPHY - [...] biopsy of a clini isabel suspicious abnormality. [id number] Electronically Signed: Lazaro Abrams MD at 9:44 EST Tel [phone], Service support [phone], CC: Nelia Smith DO Sports Teacher: Signed 22-Apr-2016 Venous Duplex Upper Extremity Result: Comments: See Note; NOTES: [facility] Cardiovascular Services [address] [place] [address] Venous Duplex US - Orlin Extrem 04/22/16 1401 MR#: [id number] Acct: [id number] Name: LEYLA RIOJAS Rep #: [id number] : 1945 70 From: Jose Pardo MD [...] basilic and cephalic veins. Ordering Phy sician: Nelia Smith Referring Physician: Nelia Smith Performed By: Lorenza Almonte, RDCS, RVT 04/22/16 1631 Date ___ Jose Pardo MD CC: Nelia Smith DO Date Dictated: 04/22/16 1401 Date Transcribed: 04/22/16 1631 Sports Teacher: Signed 10-Jan-2016 Venous Duplex Upper Extremity Result: Comments: See Note; NOTES: [facility] Cardiovascular Services [address] [place] [address] Venous Duplex - Orlin Extrem 01/10/16 1353 MR#: [id number] Acct: [id number] Name: LEYLA RIOJAS Rep #: [id number] : 1945 70 From: Jose Pardo MD [...] Date Dictated: 01/10/16 1353 Date Transcribed: 01/10/162117 Sports Teacher: Signed 25-Dec-2015 Venous Duplex Upper Extremity Result: Comments: See Note; NOTES: [facility] Cardiovascular Services [address] [place] [address] Venous Duplex US, Unilateral 12/25/15 0857 MR#: [id number] Acct: [id number] Name: LEYLA RIOJAS Rep #: [id number] : 1945 70 From: Jose Pardo MD Attending Dr: Nelia Smith DO Status: REG CLI Ordering Dr: Nelia Smith DO Date: 12/25/15 Location: [facility] Sex: [...] ulnar vein is compressible. Prelim called to [facility] nurses line voicemail. < Interpretation Summary [...] Ordering Physician: Nelia Smith Performed By: Robb Reina, RVT Electronically signed by: Jose Pardo MD on 01:20 PM 12/25/15 1320 Date Jose Pardo MD CC: Nelia Smith DO Date Dictated: 12/25/15 0857 Date Transcribed: 12/25/15 1320 Sports Teacher: Signed 20-Dec-2015 Venous Duplex Upper Extremity Result: Comments: See Note; NOTES: [facility] Cardiovascular Services [address] [place] [address] Venous Duplex US, Unilateral 12/20/15 1319 MR#: [id number] Acct: [id number] Name: LEYLA RIOJAS Rep #: [id number] : 1945 70 From: Jose Pardo MD [...] Date Dictated: 12/20/15 1319 Date Transcribed: 12/20/152258 Sports Teacher: Signed 20-Dec-2015 Venous Duplex Upper Extremity Result: Comments: See Note; NOTES: [facility] Cardiovascular Services [address] [facility] [place] [address] Venous Duplex US, Unilateral 12/20/15 0901 MR#: [id number] Acct: [id number] Name: LEYLA RIOJAS Rep #: [id number] : 1945 70 From: Jose Pardo MD [...] Smith Performed By: Ethel Calles RVT 12/20/15 224 Date Jose Pardo MD CC: Nelia Smith DO Date Dictated: 12/20/15900 Date Transcribed: 12/20/152247 Sports Teacher: Signed 18-Dec-2015 Venous Duplex Upper Extremity Result: Comments: See Note; NOTES: [facility] Cardiovascular Services [address] [place] [address] Venous Duplex US, Unilateral 12/18/15 0719 MR#: [id number] Acct: [id number] Name: LEYLA RIOJAS Rep #: [id number] : 1945 70 From: Jose Pardo MD [...] 12/18/152210 Date Jose Pardo MD CC: Nelia Smith DO Date Dictated: 12/18/15 0719 Date Transcribed: 12/18/152210 Sports Teacher: Signed 07-Dec-2015 Abdomen/Pelvis W IV Cont ONLY Result: Comments: See Note; NOTES: [facility] Imaging Services [address] [place] [address] Verdana 4d Abdomen/Pelvis W IV Cont ONLY MR#: [id number] Acct: [id number] Iam e: LEYLA RIOJAS Rep #: [id number] : 1945 F 70 From: Lazaro Abrams MD PCP: Nelia Smith DO Status: [facility] ER Study: Abdomen/Pelvis W IV Cont ONLY Date of Exam: 12/07/15 Exam# [id number]: Bart Denise MD STUDY: CT [...] Lazaro Abrams MD at 9:28 EST Tel [phone], Service support [phone], CC: Nelia Smith DO; Bart Denise MD Sports Teacher: Signed 30-Aug-2015 Abdomen/Pelvis WITH Contrast Result: Comments: See Note; NOTES: [facility] Imaging Services [address] [place] [address] Verdana 4d Abdomen/Pelvis WITH Contrast MR#: [id number] Acct: [id number] Name : LEYLA RIOJAS Rep #: [id number] : 1945 F 70 From: Lazaro Abrams MD PCP: Nelia Smith DO Status: REG CLI Study: Abdomen/Pelvis WITH Contrast Date of Exam: 08/30/15 Exam# [id number]: Nelia Smith DO STUDY: [...] Lazaro Abrams MD at 11:28 EST Tel [phone], Service support [phone], Fax CC: Nelia Smith DO Sports Teacher: Signed 14-Aug-2015 Bilat Scrn Digital AND CAD Result: Comments: See Note; NOTES: [facility] Imaging Services [address] [place] [address] Verdana 4d Bilat Scrn Digital AND CAD MR#: [id number] Acct: [id number] Name: LEYLA RIOJAS Rep #: [id number] : 1945 F 69 From: Lazaro Abrams MD PCP: Nelia Smith DO Status: REG CLI Study: Bilat Scrn Digital AND CAD Date of Exam: 08/14/15 Exam# [id number] Ordering Dr: Nelia Smith DO MAMMOGRAPHY - [...] Lazaro Abrams MD at 9:38 EST Tel [phone], Service support [phone], CC: Nelia Smith DO Sports Teacher: Signed 14-Aug-2015 Dexa Bone Density Study (HP) Result: Comments: See Note; NOTES: [facility] Imaging Services [address] [place] [address] Verdana 4d Dexa Bone Density Study (HP) MR#: [id number] Acct: [id number] Name : LEYLA RIOJAS Rep #: [id number] : 1945 F 69 From: Lazaro Abrams MD PCP: Nelia Smith DO Status: REG CLI Study: Dexa Bone Density Study (HP) Date of Exam: 08/14/15 Exam# [id number]: Nelia Smith DO STUDY: [...] Lazaro Abrams MD at 15:21 EST Tel [phone], Service support [phone], CC: Nelia Smith DO Sports Teacher: Signed 01-Jun-2015 Spirometry (51390) Result: 01-Jun-2015 ELECTROCARDIOGRAM, COMPLETE (ECG) (02620) Result: [MEASUREMENTS ANALYSIS] Date of Test: 06/01/2015 11:38:22; Heart Rate: 69; HI Interval: 126; QRS: 84; QT Interval: 388; Corrected QT Interval (QTc): 403; P Wave [place]: 43; QRS Wave [place]: 48; T Wave [place]: 38; Blood Pressure: 132/86 [ECG DIAGNOSTIC STATEMENTS] Date of Test: 06/01/2015 11:38:22; Summary: Sinus Rhythm WITHIN NORMAL LIMITS 05-Feb-2015 Knee 4 or More Views Result: Comments: See Note; NOTES: [facility] Imaging Services [address] [place] [address] Radiology Report MR#: [id number] Acct: [id number] Name: LEYLA IROJAS Rep #: [id number] : 1945 F 69 From: Slick Byrd DO PCP: Nelia Smith DO Status: REG CLI Study: Knee 4 or More Views Date of Exam: 02/05/15 Exam# [id number] Ordering Dr: Nelia Smith DO UDY: X-RAY - RIGHT KNEE REASON FOR [...] Slick Byrd DO at 16:07 EDT Tel [phone], Service support [phone], RAD/Knee 4 or More Views IMPRESSION: Normal x-ray examination of the knee. Electronically Signed: Slick Byrd DO at 16:07 EDT Tel [phone], Service support [phone], CC: Nelia Smith DO Sports Teacher: Signed 29-Jan-2015 12 Lead Electrocardiogram Result: Comments: See Note; NOTES: [facility] Cardiovascular Services [address] [place] [address] 12 Lead EKG 01/25/152308 MR#: [id number] Acct: [id number] Name: LEYLA RIOJAS Rep #: [id number] : 1945 69 From: Ceasar Wagner MD [...] , age undetermined Abnormal ECG Confirmed by CEASAR WAGNER MD ([id number]), editorial director TARA SERRANO (56) on 01/29/2015 1: 50:32 PM Referred By: MEHREEN Confirmed By:CEASAR WAGNER MD 01/29/15 1350 Date Ceasar Wagner MD CC: Nelia Smith DO Date Dictated: 01/25/152308 Date Transcribed: 01/25/152308 Sports Teacher: Signed 26-Jan-2015 Discharge Instruction Result: Comments: See Note; NOTES: [facility] Medical Records Department [address] [place] [address] Discharge Instruction 01/26/15 0112 MR#: [id number] Acct: [id number] Name: LEYLA RIOJAS Rep #: [id number] : 1945 69 From: Tanmay Michel MD PCP: Nelia Smith DO Status: [facility] ER ED Disposition - Plan for ED Patient: Disposition: Home Chief Complain t: Chest Pain Instructions: ED Chest Wall Strain Prescriptions: Hydrocodone Bitart/Apap 5-325 [[place] 5/325] 1 - 2 tablet PO Q4H PRN PRN #20 tablet PRN Reason: Pain Referrals: Nelia Smith DO [Primary Care Provider] - What to do if you have Problems For any increased pain, shortness of breath, bleeding, nausea or vomiting, chest pain, or any unexpected problems, contact your doctor. [facility] Doctors Registry ) or report to the closest Emergency Room. Call 911 if necessary. 01/26/15 0419 <Electronically signed by Tanmay Michel MD> Date _ Tanmay Michel MD Cosigner Signature (If Indicated): Date CC: Nelia Smith DO 26-Jan-2015 Emergency Department Summary Result: Comments: See Note; NOTES: [facility] Medical Records Department [address] [place] [address] Emergency Department Summary MR#: [id number] Acct: [id number] Name: LEYLA MENDIOLA Rep #: [id number] : 1945 69 From: Tanmay Michel MD PCP: Nelia Smith DO Status: [facility] ER DATE OF SERVICE: 01/25/2015 CHIEF COMPLAINT: [...] was done by Dr. Stacy mallory at [facility]. The aneurysm does extend into the lower [...] her vascular surgeon, as well as her [facility] doctor. DISPOSITION: Home. IMPRESSION: Right chest pain, suspect intercostal spasms. Tanmay Michel MD T: LUCHO JOB: [id number] 01/26/15 0418 <Electronically signed by Anika Michel MD> Date Tanmay Michel MD CC: Nelia Smith DO Date Dictated: 01/26/15116 Date Transcribed: 01/26/15116 Sports Teacher: Signed 25-Jan-2015 Chest 1 View (Portable) Result: Comments: See Note; NOTES: [facility] Imaging Services [address] [place] [address] Radiology Report MR#: [id number] Acct: [id number] Name: LEYLA RIOJAS Rep #: [id number] : 1945 F 69 From: Brown Lord PCP: Nelia Smith DO Status: DEP ER Study: Chest 1 View (Portable) Date of Exam: 01/26/15 Exam# [id number] Ordering Dr: Tanmay Michel MD STUDY: X-RAY [...] at 7:36 EDT Tel , Service support [phone], CC: Nelia Smith DO; Tanmay Mihcel MD Sports Teacher: Signed 25-Jan-2015 CTA Chest W/WO Contrast Result: Comments: See Note; NOTES: [facility] Imaging Services [address] [place] [address] CAT Scan Report MR#: [id number] Acct: [id number] Name: LEYLA RIOJAS Rep #: [id number] : 1945 F 69 From: Brown Lord PCP: Nelia Smith DO Status: REG ER Study: CTA Chest W/WO Contrast Date of Exam: 01/25/15 Exam# [id number] Ordering Dr: Tanmay Michel MDDY: CTA CHEST REASON FOR EXAM: Female, 69 [...] an approximately 9 cm length within the northway thoracic aortic aneurysm. There is no demonstrated [...] leak. There is intraluminal thrombus within the northway distal thoracic aortic aneurysm, with the t hrombus peripheral to the stent. The northway thoracic aortic aneurysm measures 4.8 x 4.6 cm increased as compared to the prior exam where it measured 4.0 cm in greatest transverse dimension. 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 Stable small mediastinal lymph nodes. Electronically Signed: Brown Lord MD at 0:36 EDT , Service support [phone], C C: Nelia Smith DO; Tanmay Michel MD Sports Teacher: Signed 11-Oct-2014 12 Lead Electrocardiogram Result: Comments: See Note; NOTES: [facility] Cardiovascular Services [address] [place] [address] 12 Lead EKG 10/09/142127 MR#: [id number] Acct: [id number] Name: LEYLA RIOJAS Rep #: [id number] : 1945 69 From: Benedicto Perla MD [...] Normal ECG Confirmed by YOU GUNTER, BENEDICTO ([id number]), editorial director TARA SERRANO (56) on 2014 10:10:38 AM Referred By: DA/HARRY Confirmed By:BENEDICTO PERLA MD 10/11/14 1010 Date _ Benedicto Perla MD CC: Nelia Smith DO Date Dictated: 10/09/142127 Date Transcribed: 10/09/142127 Sports Teacher: Signed 10-Oct-2014 Emergency Department Summary Result: Comments: See Note; NOTES: [facility] Medical Records Department [address] [place] [address] Emergency Department Summary MR#: [id number] Acct: [id number] Name: LEYLA MENDIOLA Rep #: [id number] : 1945 69 From: Eugenia Armstrong MD [...] they would prefer to be transferred to [facility]. I spoke with the transfer line as well as the [facility] doctor and the patient will be admitted to medicine for cardiac rule out and will have a consultation to have further evaluation of her aneurysm. DISPOSITION: Transfer to [facility]. IMPRESSION: 1. Chest pain. 2. Thoracic aortic aneurysm. Eugenia Armstrong MD T: NTS JOB: [id number] 10/10/14 2259 <Electronically signed by Eugenia Armstrong MD> Date Eugenia Armstrong MD CC: Nelia Smith DO Date Dictated: 10/10/1452 Date Transcribed: 10/10/1452 Sports Teacher: Signed 09-Oct-2014 Abdomen/Pelvis without Cont Result: Comments: See Note; NOTES: [facility] Imaging Services [address] [place] [address] CAT Scan Report MR#: [id number] Acct: [id number] Name: LEYLA RIOJAS Rep #: [id number] : 1945 F 69 From: Deandra Parsons MD PCP: Nelia Smith DO Status: REG ER Study: Abdomen/Pelvis without Cont Date of Exam: 10/09/14 Exam# [id number] Ordering Dr: Eugenia Armstrong MD STUDY: CT [...] at 23:55 EST Tel , Service support [phone], CC: Eugenia Armstrong MD; Yojana Smith DO Sports Teacher: Signed 09-Oct-2014 CTA Chest W/WO Contrast Result: Comments: See Note; NOTES: [facility] Imaging Services [address] [place] [address] CAT Scan Report MR#: [id number] Acct: [id number] Name: LEYLA RIOJAS Rep #: [id number] : 1945 F 69 From: Deandra Parsons MD PCP: Nelia Smith DO Status: [facility] ER Study: CTA Chest W/WO Contrast Date of Exam: 10/09/14 Exam# [id number] Ordering Dr: Eugenia Armstrong MD RUST DY: CTA CHEST REASON FOR EXAM: Female, [...] at 22:59 EST Tel , Service support [phone], CC: Eugenia Armstrong MD; Nelia Smith DO Sports Teacher: Signed 09-Oct-2014 Chest 1 View (Portable) Result: Comments: See Note; NOTES: [facility] Imaging Services [address] [place] [address] Radiology Report MR#: [id number] Acct: [id number] Name: LEYLA RIOJAS Rep #: [id number] : 1945 F 69 From: Lazaro Abrams MD PCP: Nelia Smith DO Status: DEP ER Study: Chest 1 View (Portable) Date of Exam: 10/09/14 Exam# [id number] Ordering Dr: Eugenia Armstrong MD STUDY: X-RAY [...] Lazaro Abrams MD at 11:07 EST Tel [phone], Service support [phone], CC: Eugenia Armstrong MD; Nelia Smith DO Sports Teacher: Signed 22-Jun-2014 Bilat Scrn Digital & CAD Result: Comments: See Note; NOTES: [facility] Imaging Services [address] [place] [address] Breast Imaging Report MR#: [id number] Acct: [id number] Name: LEYAL RIOJAS Rep #: [id number] : 1945 F 68 From: Lazaro Abrams MD PCP: Nelia Smith DO Status: REG [facility] Exam# [id number] Ordering Dr: Nelia Smith DO MAMMOGRAPHY - [...] Abrams MD 2013 at 9:25 EDT Tel [phone], Service support [phone], CC: Nelia Smith DO Sports Teacher: Signed 12-Jun-2014 Echocardiogram Complete Result: Comments: See Note; NOTES: [facility] Cardiovascular Services [address] [place] [address] Echo Complete 06/12/14 0956 MR#: [id number] Acct: [id number] Name: LEYLA NEUMANN Rep #: [id number] : 1945 68 From: Ceasar Wagner MD Attending Dr: Nelia Smith DO Status: REG CLI Ordering Dr: Nelia Smith DO Date: 06/12/14 Location: [facility] Sex: F C Admitted: Procedure This [...] Dictated: 06/12/14 0956 Date Transcribed: 06/12/14 1430 Sports Teacher: Signed 09-Jun-2014 Chest PA and Lateral Result: Comments: See Note; NOTES: [facility] Imaging Services [address] [place] [address] Radiology Report MR#: [id number] Acct: [id number] Name: LEYLA RIOJAS Rep #: [id number] : 1945 F 68 From: Zaki Farooq DO PCP: Nelia Smith DO Status: REG CLI Study: Chest PA and Lateral Date of Exam: 06/09/14 Exam# [id number] Ordering Dr: Nelia Smith TUDY: X-RAY CHEST [...] DO at 13:47 EDT , Service support [phone], RAD/Chest PA and Lateral IMPRESSION: COPD. No acute airspace opacities are demonstrated. Calcification right lung base laterally is stable. Electronically Signed: Jasbir iwtt DO at 13:47 EDT , Service support [phone], CC: Nelia Smith DO Sports Teacher: Signed 09-Jun-2014 Spirometry (52157) Result: 10-Aug-2013 Bilat Scrn Digital & CAD Result: Comments: See Note; NOTES: [facility] Imaging Services [address] [facility] [place] [address] Breast Imaging Report MR#: [id number] Acct: [id number] Name: LEYLA RIOJAS Rep #: [id number] : 1945 F 67 From: Lazaro Abrams MD PCP: Nelia Smith DO Status: REG CLI Exam# [id number] Ordering Dr: Nelia Smith DO MAMMOGRAPHY - [...] August 10, 2013 at 9:02:54 AM EST [phone] Electronically Signed GP/GP If you are the referring physician and would like to consult with the radiologist w ho provided this interpretation, please contact Lazaro Abrams M.D. at [phone]. If this radiologist is unavailable, you will be directed to another radiologist to assist. If you are a marco ent with a question regarding this report, please contact your referring physician directly. Professional Interpretation Provided By: [employer], Phone , These docum ents contain legally [...] of these documents. CC: Nelia Smith DO Sports Teacher: Signed 10-Aug-2013 Dexa Bone Density Study (HP) Result: Comments: See Note; NOTES: [facility] Imaging Services [address] [place] [address] Bone Density Report MR#: [id number] Acct: [id number] Name: LEYLA RIOJAS Rep #: [id number] : 1945 F 67 From: Lazaro Abrams MD PCP: Nelia Smith DO Status: [facility] CLI Study: Dexa Bone Density Study (HP) Date of Exam: 08/10/13 Exam# [id number] Ordering Dr: May Smith DO STUDY: DUAL [...] August 10, 2013 at 2:57:37 PM EST [phone] Electronically Signed GP/GP If you are the referring physician and would like to consult with the radiologist who provided this interpretation, please contact Lazaro Abrams M.D. at [phone]. If this radiologist is unavailable, you will be directed to another radiologist to assist. If you are a patient with a q uestion regarding this report, please contact your referring physician directly. Professional Interpretation Provided By: [employer], Phone , These documents contain legally protected [...] of these documents. CC: Nelia Smith DO Sports Teacher: Signed Family History Unknown Family Member Name [...] unknown Vital Signs Date Test Result Details 0-Vro-809694:42 Temperature 96.7 f Comments: Method: Temporal Pulse 64 /min Comments: Pattern: Regular Respiration Rate 16 /min Comments: Pattern: Unlabored O2 SAT 96 % Comments: Room air BP Systolic 142 mm[Hg] Comments: Patient Position: Sitting; Cuff Location: Left Arm; Cuff Size: Standard BP Diastolic 82 mm[Hg] Comments: Patient Position: Sitting; Cuff Location: Left Arm; Cuff Size: Standard Weight 186.25 lb Height 64 in Body Mass Index Calculated 31.97 kg/m2 Body Surface Area Calculated 1.9 m2 62-Dtu-862583:25 Pulse 62 /min Comments: Pattern: Regular Respiration [...] kg/m2 Body Surface Area Calculated 1.88 m2 :33 Comments: after - colette scale 12 Temperature 97.2 f Pulse 70 [...] kg/m2 Body Surface Area Calculated 1.91 m2 76-Gpt-025528:00 Comments: 133/79 this am at home Temperature [...] kg/m2 Body Surface Area Calculated 1.9 m2 57-Hiz-903844:29 Pulse 67 /min Comments: Pattern: Regular Respiration [...] kg/m2 Body Surface Area Calculated 1.9 m2 75-Jui-329550:08 Pulse 76 /min Comments: Pattern: Regular Respiration [...] Area Calculated 1.9 m2 :15 Comments: not CHALKYITSIK - has had eye exam ijn march [...] kg/m2 Body Surface Area Calculated 1.85 m2 :17 Pulse 72 /min Comments: Pattern: Regular Respiration [...] kg/m2 Body Surface Area Calculated 1.84 m2 :15 Pulse 68 /min Comments: Pattern: Regular Respiration [...] 1.79 m2 :01 Comments: eye doc Dr. Waldrop wnmorris Pulse 96 /min Comments: Pattern: Regular Respiration [...] Height 0 in Head Circumference 0.00 cm 5-Qof-664304:10 Temperature 98.3 f Comments: Method: Oral Pulse [...] 0.00 cm Results Date Description Value Details 00-Cvg-671524:11 Microscopic Examination Comments: PATIENT WAS FASTINGPERFORMED BY: MARIA DEL ROSARIO [employer] Hshoqi3741 [facility] [id number] Bacteria Few (Normal) Mucus Threads Present (Normal) Cast Type Hyaline casts (Normal) Casts Present {/lpf} (Abnormal) Epithelial Cells (non renal) 0-10 {/hpf} (Normal) Range: 0 - 10 RBC 3-10 {/hpf} (Abnormal) Range: 0 - 2 WBC 0-5 {/hpf} (Normal) Range: 0 - 5 42-Nzw-457587:11 MICROALBUMIN: CREATININE RATIO Comments: PATIENT WAS FASTINGPERFORMED BY: MARIA DEL ROSARIO [facility]OvationHoly [facility] Medical CenterYpthfm7961 [facility] [id number] ([id number]) AND (18441) Alb/Creat Ratio 6.7 {mg/g_creat} (Normal) Range: 0.0-30.0 Albumin, Urine 10.2 ug/mL (Normal) Creatinine, Urine 151.2 mg/dL (Normal) 16-Ple-853252:11 CALCIFEDIOL (78403) Comments: PATIENT WAS FASTINGPERFORMED BY: [employer] Ddsxic0636 [facility] [id number] Vitamin D, 25-Hydroxy 64.0 ng/mL (Normal) Range: 30.0-100.0 Comments: Vitamin D deficiency has been defined by the [place] of[facility] and an Endocrine Society practice guideline as alevel of serum 25-OH vitamin D less than 20 ng/mL (1,2).The Endocrine Society went on to further define vitamin Dinsufficiency as a level between 21 and 29 ng/mL (2).1. IOM ([place] of Medicine). 2010. Dietary reference intakes for calcium and D. [place]: The National Academies Press.2. Maria De Jesus MF, Walter REDDY, Patrick SENIOR, et al. Evaluation, treatment, and prevention of vitamin D deficiency: an Endocrine Society clinical practice guideline. JCEM. 2010; 96(7):1911-30. 28-Lzw-283985:11 URINALYSIS (42564) Comments: PATIENT WAS FASTINGPERFORMED BY: [employer]6370 [facility] [id number] Microscopic Examination See below: (Normal) Comments: Microscopic was indicated and was performed. Nitrite, Urine Negative (Normal) Urobilinogen,Semi-Qn 0.2 mg/dL (Normal) Range: 0.2-1.0 Bilirubin Negative (Normal) Occult Blood Trace (Abnormal) Ketones Negative (Normal) Glucose Negative (Normal) Protein Negative (Normal) WBC Esterase Trace (Abnormal) Appearance Clear (Normal) Urine-Color Yellow (Normal) pH 6.5 (Normal) Range: 5.0-7.5 Specific [place] 1.018 (Normal) Range: 1.005-1.030 39-Btv-285409:11 TSH (THYROID STIMULATING Comments: PATIENT WAS FASTINGPERFORMED BY: [employer] Xwpfhg7595 [facility] [id number] HORMONE) (36825) TSH 2.600 {uIU/mL} (Normal) Range: 0.450-4.500 91-Imf-832028:11 CBC & PLATELETS (AUTO) Comments: PATIENT WAS FASTINGPERFORMED BY: [facility] [id number] (96847) Platelets 251 {x10E3/uL} (Normal) Range: 150-379 RDW 14.3 % (Normal) Range: 12.3-15.4 MCHC 34.3 g/dL (Normal) Range: 31.5-35.7 MCH 31.5 pg (Normal) Range: 26.6-33.0 MCV 92 fL (Normal) Range: 79-97 Hematocrit 44.6 % (Normal) Range: 34.0-46.6 Hemoglobin 15.3 g/dL (Normal) Range: 11.1-15.9 RBC 4.85 {x10E6/uL} (Normal) Range: 3.77-5.28 WBC 6.9 {x10E3/uL} (Normal) Range: 3.4-10.8 59-Jud-303373:11 METABOLIC PANEL, Comments: PATIENT WAS FASTINGPERFORMED BY: [facility]6370 [facility] [id number] Information: [id number] COMPREHENSIVE (17224) ALT (SGPT) 21 [iU]/L (Normal) Range: 0-32 [...] 8-27 Glucose 98 mg/dL (Normal) Range: 65-99 28-Taq-806766:11 LIPID PANEL (03361) Comments: PATIENT WAS FASTINGPERFORMED BY: [facility] Znugdy3159 [facility] [id number] LDL/HDL Ratio 3.2 {ratio} (Normal) Range: 0.0-3.2 Comments: LDL/HDL Ratio Men Women 1/2 Avg.Risk 1.0 1.5 Av g.Risk 3.6 3.2 2X Avg.Risk 6.2 5.0 3X Avg.Risk 8.0 6.1 LDL Cholesterol Calc 129 mg/dL (Abnormal) Range: 0-99 VLDL Cholesterol Juan Manuel 26 mg/dL (Normal) Range: 5-40 HDL Cholesterol 40 mg/dL (Normal) Triglycerides 132 mg/dL (Normal) Range: 0-149 Cholesterol, Total 195 mg/dL (Normal) Range: 100-199 12-Ebe-314317:35 Basic Metabolic Profile (BMP) Comments: [facility] [address] [place], [address] GAP 9 (Normal) Range: 5-15 CO2 24.0 [...] A.D.A. criteria.Please note revised GLUCOSE reference range mrqchgyoc32/02/2018. 24-Xst-224733:35 CBC W/Diff, Automated Comments: [facility] [address] [place] [place], [address] Absolute Lymph 1.29 {X10_3/ul} (Normal) Range: 0.83-4.51 [...] 4.2-5.4 WBC 7.3 K/mm3 (Normal) Range: 4.4-11.0 58-Rmn-498562:35 Partial Thromboplast Time Comments: [facility] [address] [place], [id number] PTT 27.6 s (Normal) Range: 24.1-36.2 :35 Prothrombin Time w/INR Comments: [facility] [address] [place], [id number] INR 1.2 (Normal) PROTIME 14.9 s (Normal) Range: 11.7-14.9 33-Eys-056308:40 Microscopic Examination Comments: PATIENT WAS FASTINGPERFORMED BY: [employer] [place] [id number] Bacteria Few (Normal) Mucus Threads Present (Normal) Epithelial Cells (non renal) 0-10 {/hpf} (Normal) Range: 0 - 10 RBC 3-10 {/hpf} (Abnormal) Range: 0 - 2 WBC 11-30 {/hpf} (Abnormal) Range: 0 - 5 :40 CALCIFIDIOL (35432) VIT D 25 Comments: PATIENT WAS FASTINGPERFORMED BY: [employer] [place] [id number] Vitamin D, 25-Hydroxy 107.0 ng/mL (Abnormal) Range: 30.0-100.0 Comments: Vitamin D deficiency has been defined by the [place] of[place]icine and an Endocrine Society practice guideline as alevel of serum 25-OH vitamin D less than 20 ng/mL (1,2).The Endocrine Society went on to further define vitamin Dinsufficiency as a level between 21 and 29 ng/mL (2).1. IOM ([place] of Medicine). 2010. Dietary reference intakes for calcium and D. [place]: The National Academies Press.2. Maria De Jesus MF, Walter [place], Patrick SENIOR, et al. Evaluation, treatment, and prevention of vitamin D deficiency: an Endocrine Society clinical practice guideline. JCEM. 2010; 96(7):1911-30. 41-Ldz-800788:40 URINALYSIS, W/ MICRO (25108) Comments: PATIENT WAS FASTINGPERFORMED BY: [facility]ela Tmfcrr9488 [facility] [id number] Microscopic Examination See below: (Normal) Comments: Microscopic was indicated and was performed. Nitrite, Urine Negative (Normal) Urobilinogen,Semi-Qn 0.2 mg/dL (Normal) Range: 0.2-1.0 Bilirubin Negative (Normal) Occult Blood Trace (Abnormal) Ketones Negative (Normal) Glucose Negative (Normal) Protein Negative (Normal) WBC Esterase 2+ (Abnormal) Appearance Clear (Normal) Urine-Color Yellow (Normal) pH 6.5 (Normal) Range: 5.0-7.5 Specific [place] 1.019 (Normal) Range: 1.005-1.030 :40 MICROALBUMIN: CREATININE RATIO Comments: PATIENT WAS FASTINGPERFORMED BY: [employer] [facility] [id number] ([id number]) AND (22806) Microalb/Creat Ratio 15.4 {mg/g_creat} (Normal) Range: 0.0-30.0 Microalbumin, Urine 17.1 ug/mL (Normal) Creatinine, Urine 111.4 mg/dL (Normal) :40 LIPID PANEL (63447) Comments: PATIENT WAS FASTINGPERFORMED BY: [employer] [facility] [id number] LDL/HDL Ratio 2.9 {ratio_units} (Normal) Range: 0.0-3.2 Comments: LDL/HDL Ratio Men Women 1/2 Avg.Risk 1.0 1.5 Av g.Risk 3.6 3.2 2X Avg.Risk 6.2 5.0 3X Avg.Risk 8.0 6.1 LDL Cholesterol Calc 123 mg/dL (Abnormal) Range: 0-99 VLDL Cholesterol Juan Manuel 23 mg/dL (Normal) Range: 5-40 HDL Cholesterol 42 mg/dL (Normal) Triglycerides 115 mg/dL (Normal) Range: 0-149 Cholesterol, Total 188 mg/dL (Normal) Range: 100-199 73-Nat-187372:43 CBC W/Diff, Automated Comments: [facility] [address] [place], [address] Absolute Lymph 2.29 {X10_3/ul} (Normal) Range: 0.83-4.51 [...] 4.2-5.4 WBC 6.3 K/mm3 (Normal) Range: 4.4-11.0 79-Thu-630651:43 Comprehensive Metabolic Profil Comments: [facility] [address] [place], [address] GAP 7 (Normal) Range: 5-15 CO2 28.0 [...] 7-18 GLU 87 mg/dL (Normal) Range: 70-110 38-Jwo-443373:34 CREATININE FINGERSTICK Comments: [facility] LaboratoryPoint of [address] [place] [address] EGFR WB Test not performed mL/min (Normal) CREATININE WB 1.0 mg/dL (Normal) Range: 0.55-1.02 07-Qxx-04987:28 Rapid Flu (69958 x 2) Comments: neg Influenza A Ag neg a/b (Normal) :32 CBC W/Diff, Automated Comments: [facility] [address] [place], [address] Absolute Lymph 2.39 {X10_3/ul} (Normal) [...] Metabolic Profil Comments: DR BRITO ONLY ORDERED [facility] [address] [place], [place], [id number] GAP 8 (Normal) Range: 5-15 CO2 27.0 [...] Range: 70-110 :32 Lipid Profile Comments: DR BRITO ONLY ORDERED [facility] [address] [place] [place], [address] VLDL 17 mg/dL (Normal) Range: 5-40 LDL [...] High Risk :32 Microalb:Creat Ratio,Random UR Comments: [facility] [address] [place], [address] MALB:CREAT 8.9 {mg/g_CRE} (Normal) MICROALBUMIN,UR 6.6 mg/L (Normal) UR CREAT 74.00 mg/dL (Normal) :32 Urinalysis, Complete Comments: How was Urine Obtained? CLEAN [facility] [address] [place], [place], [id number] MUCUS, URINE 0 SEEN {/hpf} (Normal) BACTERIA [...] CLARITY Sl. Cloudy (Normal) COLOR Yellow (Normal) 21-Pxf-46579:32 Vitamin D,25 Hydroxy Comments: [facility] [address] [place], [address] Vitamin D 25-OH 51.0 ng/mL (Normal) Comments: Vitamin D 25(OH) Status Range Deficiency <20 ng/mL (50nmol/L) Insuffciency 20 - 30 ng/mL (50 - 75 nmol/L) Sufficiency 30 - 100 ng/mL (75 - 250 nmol/L) Toxicity >100 ng/mL (>250 nmol/L) 8-Duh-501122:59 Cytology, Body Fluid / CSF Comments: Specimen Source: [facility] [address] [place], [address] CYTOLOGY,BF/CSF SEE PATHOLOGY REPORT Comments: Specimen submitted to Anatomical Pathology Department fortesting. (Normal) 78-Efv-53462:00 CYTOSPIN ON FLUID See Note (Normal) Comments: [facility] [address] [place], [address] Comments: Patient: LEYLA RIOJAS : 1945 (70/F) Acct Num: [id number] Phys: Benedicto Leigh MD Unit Num: [id number] Loc: LAB Specimen: [id number] Received: 02/27/16 - 1202 Spec Type: C YSPIN FL TISSUES TISSUES: COMMENT Clinical correlation and appropriate follow up are necessary. CULTURE RESULTS No results available. CYTOLOGY GROSS Received is 15 ml of bright yellow cloudy fluid labeled with the patient's name and and designated per the requisition as urine. Submitted for cytology preparation. / JOHANNE:vick 02/27/16 TC:2 CPT: 00955 CYTOLOGY S TUDY Slides are reviewed. The specimen consists of benign squamous cells, squamous metaplastic cells, urothelial cells and neutrophils. DIAGNOSIS CYTOLOGY Urine for cytology (cytospin): Negative for malignant cells. Acute inflammation. SJ:aleshia 02/28/16 HEADER OPERATION: Not noted PRE-OP DIAGNOSIS: Hematuria TISSUE SUBMITTED: Urine cytology Signed Samuel Griffith 02/28/16 <signature on file> 03-Jfy-73608:13 Basic Metabolic Profile (BMP) Comments: [facility] [address] [facility] [place], [address] GAP 4 (Abnormal) Range: 5-15 CO2 29.0 [...] A.D.A. criteria. :13 CBC W/Diff, Automated Comments: [facility] [address] [place], [address] Absolute Lymph 1.27 {X10_3/ul} (Normal) Range: 0.83-4.51 [...] :36 CBC-Complete Blood Cnt No Diff Comments: [facility] [address] [place], [place], [id number] MPV 10.9 fL (Normal) Range: 6.2-12.0 PLT [...] 4.2-5.4 WBC 8.6 K/mm3 (Normal) Range: 4.4-11.0 30-Aug-20158:36 Comprehensive Metabolic Profil Comments: [facility] [address] [place], [place], [id number] GAP 5 (Normal) Range: 5-15 CO2 30.0 [...] mg/dL (Normal) Range: 70-110 :36 CRP Comments: [facility] [address] [place], [place], [address] C-REACTIVE PROT 4.00 mg/L (Abnormal) Range: 0.0-3.0 Comments: C-Reactive Protein (CRP) provides useful information for thediagnosis, therapy and monitoring of inflammatory processesand associated diseases. For the evaluation of Relative Riskfor Cardiovascular Dise ase, a High Sensitivity CRP (HSCRP)should be ordered. :36 Erythrocyte Sed Rate Comments: [facility] [address] [place], [address] SED RATE 4 mm/h (Normal) Range: 0-30 20-Yyn-959753:09 CALCIFEDIOL (88283) Comments: PATIENT NOT FASTINGPERFORMED BY: [facility] CenterVojvov6304 [facility] [id number] Information: [id number] Vitamin D, 25-Hydroxy 25.9 ng/mL (Abnormal) Range: 30.0-100.0 Comments: Vitamin D deficiency has been defined by the [place] of[facility] and an Endocrine Society practice guideline as alevel of serum 25-OH vitamin D less than 20 ng/mL (1,2).The Endocrine Society went on to further define vitamin Dinsufficiency as a level between 21 and 29 ng/mL (2).1. IOM ([place] of Medicine). 2010. Dietary reference intakes for calcium and D. [place]: The National Academies Press.2. Maria De eJsus MF, Walter REDDY, Patrick SENIOR, et al. Evaluation, treatment, and prevention of vitamin D deficiency: an Endocrine Society clinical practice guideline. JCEM. 2010; 96(7):1911-30. :04 Microscopic Examination Comments: PATIENT WAS FASTINGPERFORMED BY: [facility] Hgfivc9245 [facility] [id number] Bacteria Few (Normal) Mucus Threads Present (Normal) Crystal Type Amorphous Sediment (Normal) Comments: Calcium Oxalate Crystals Present (Abnormal) Epithelial Cells (non renal) 0-10 {/hpf} (Normal) Range: 0 - 10 RBC None seen {/hpf} (Normal) Range: 0 - 2 WBC 0-5 {/hpf} (Normal) Range: 0 - 5 :47 Urinalysis, Office (41266) UA - LEUKOCYTE ESTERASE Trace (Normal) UA [...] Basic Metabolic Profile (BMP) Comments: Test performed at:[facility] [address] [facility] [address] GAP 7 (Normal) Range: 5-15 CO2 26.0 mmol/L (Normal) Range: 21.0-32.0 CL 108 mmol/L (Abnormal) Range: 98-107 K 3.8 mmol/L (Normal) Range: 3.5-5.1 NA 141 mmol/L (Normal) Range: 136-145 CA 8.8 mg/dL (Normal) Range: 8.5-10.1 BUN/CRE 16.3 {RATIO} (Normal) Range: 10-20 CREAT,SERUM 0.86 mg/dL (Normal) Range: 0.55-1.20 Comments: Please note revised CREATININE reference range ilameaopo08/22/2015. BUN 14 mg/dL (Normal) Range: 7-18 GLU 88 mg/dL (Normal) Range: 70-110 :56 CBC-Complete Blood Cnt No Diff Comments: Test performed at:[facility] [address] [facility] [address] MPV 12.1 fL (Abnormal) Range: 6.2-12.0 PLT [...] 4.2-5.4 WBC 7.6 K/mm3 (Normal) Range: 4.4-11.0 : TSH (01953) Comments: PATIENT WAS FASTINGPERFORMED BY: [facility] [id number] TSH 2.500 {uIU/mL} (Normal) Range: 0.450-4.500 :04 URINALYSIS, W/ MICRO (99068) Comments: PATIENT WAS FASTINGPERFORMED BY: [facility] [id number] Microscopic Examination See below: (Normal) Comments: Microscopic was indicated and was performed. Microscopic Examination MICRON (Normal) Comments: Microscopic follows if indicated. Nitrite, Urine Negative (Normal) Urobilinogen,Semi-Qn 0.2 mg/dL (Normal) Range: 0.0-1.9 Bilirubin Negative (Normal) Occult Blood Negative (Normal) Ketones Negative (Normal) Glucose Negative (Normal) Protein Negative (Normal) WBC Esterase Negative (Normal) Appearance Cloudy (Abnormal) Urine-Color Yellow (Normal) pH 6.0 (Normal) Range: 5.0-7.5 Specific [place] 1.020 (Normal) Range: 1.005-1.030 :04 MICROALBUMIN: CREATININE RATIO Comments: PATIENT WAS FASTINGPERFORMED BY: [facility] [id number] ([id number]) AND (13759) Microalb/Creat Ratio 7.1 {mg/g_creat} (Normal) Range: 0.0-30.0 Microalbumin, Urine 8.7 ug/mL (Normal) Range: 0.0-17.0 Creatinine, Urine 123.2 mg/dL (Normal) Range: 15.0-278.0 :04 METABOLIC PANEL, COMPREHENSIVE Comments: PATIENT WAS FASTINGPERFORMED BY: [employer] [id number] (82087) ALT (SGPT) 22 [iU]/L (Normal) Range: 0-32 [...] mg/dL (Normal) Range: 65-99 :04 LIPID PANEL (02474) Comments: PATIENT WAS FASTINGPERFORMED BY: Solexant6370 [facility] [id number] LDL/HDL Ratio 2.1 {ratio_units} (Normal) Range: 0.0-3.2 [...] Cholesterol, Total 145 mg/dL (Normal) Range: 100-199 14-Lhf-02329:04 CBC W/AUTO DIFF WBC Comments: PATIENT WAS FASTINGPERFORMED BY: [facility] Qwtwcc7706 [facility] [id number] Information: [id number] (19276) Immature Grans (Abs) 0.0 {x10E3/uL} (Normal) Range: [...] 3.77-5.28 WBC 7.2 {x10E3/uL} (Normal) Range: 3.4-10.8 23-Xug-768082:32 Basic Metabolic Profile (BMP) Comments: 'TROP' Serial specimen #1, #2, #3, or #4: 1Test performed at:[facility] [address] [place] [address] GAP 5 (Normal) Range: 5-15 CO2 29.0 [...] 7-18 GLU 102 mg/dL (Normal) Range: 70-110 :32 CBC W/Diff, Automated Comments: Test performed at:[facility] [address] [facility]. [place], [place] [address] Absolute Lymph 3.62 {X10_3/ul} (Normal) Range: 0.83-4.51 [...] 4.2-5.4 WBC 10.3 K/mm3 (Normal) Range: 4.4-11.0 14-Ugg-259553:32 Troponin-I Comments: 'TROP' Serial specimen #1, #2, #3, or #4: 1Test performed at:[facility] [address] [place], [place] [address] TROPONIN-I < 0.02 ng/mL (Normal) Comments: TROPONIN-I EXPECTED VALUES <0.05 NEGATIVE 0.06 - 0.59 AT RISK OF [place] > OR = 0.60 SUGGEST [place] 76-Kit-860514:49 URINE DIANA CULTURE-CONCHA COL Comments: PATIENT NOT FASTINGPERFORMED BY: [facility] Clvapn0766 [facility] [id number] Information: [place] [id number] [place] (84253) Result 1 CNSNSS (Abnormal) Comments: Coagulase negative [...] S Urine Final report Culture,Compreh (Abnormal) ensive 12-Jny-284545:53 Urinalysis, Office (83413) UA - LEUKOCYTE ESTERASE Trace (Normal) UA - NITRITE Negative (Normal) URINE UROBILINGN CONCHA TIMED Normal mg/dL (Normal) UA - PROTEIN Negative mg/dL (Normal) UA - PH 7 (Normal) UA - BLOOD Non Hemolyzed Trace (Normal) UA - SPECIFIC GRAVITY 1.015 (Normal) UA - KETONES Negative mg/dL (Normal) UA - BILIRUBIN Negative (Normal) UA - GLUCOSE Negative (Normal) 80-Fvn-570795:30 Basic Metabolic Profile (BMP) Comments: Serial Specimen #1, #2 or #3? 1'TROP' Serial specimen #1, #2, #3, or #4: 1Test performed at:[facility] [address] [place], [place] [address] GAP 4 (Abnormal) Range: 5-15 CO2 28.0 [...] 7-18 GLU 106 mg/dL (Normal) Range: 70-110 95-Nsu-026217:30 CBC W/Diff, Automated Comments: Test performed at:[facility] [address] [place] [address] Absolute Lymph 4.15 {X10_3/ul} (Normal) [...] 4.2-5.4 WBC 11.1 K/mm3 (Abnormal) Range: 4.4-11.0 56-Ccg-694722:30 CK-MB Quantitative and Index Comments: Serial Specimen #1, #2 or #3? 1'TROP' Serial specimen #1, #2, #3, or #4: 1Test performed at:[facility] [address] [place] [address] CPKMB 1.5 ng/mL (Normal) Range: 0.0-5.0 Comments: CK-MB and RI Interpretation MB Relative Index Non-AMI <or= 5 NA Indeterminate > 5 <or= 4 AMI > 5 > 4 CPK TOTAL 119 U/L (Normal) Range: 26-192 09-Rsc-679798:30 Troponin-I Comments: Serial Specimen #1, #2 or #3? 1'TROP' Serial specimen #1, #2, #3, or #4: 1Test performed at:[facility] [address] [place] [address] TROPONIN-I < 0.02 ng/mL (Normal) Comments: TROPONIN-I EXPECTED VALUES <0.05 NEGATIVE 0.06 - 0.59 AT RISK OF [place] > OR = 0.60 SUGGEST [place] :06 BMP GAP 7 (Normal) Range: 5-15 [...] 7-18 GLU 101 mg/dL (Normal) Range: 70-110 :06 CBCD ALC 2.65 {X10_3/ul} (Normal) Range: 0.83-4.51 [...] 4.2-5.4 WBC 7.4 K/mm3 (Normal) Range: 4.4-11.0 06-Aug-20127:53 BILAT SCRN DIGITAL & CAD Radiology Report See Note (Normal) Comments: MAMMOGRAPHY - BILATERAL SCREENING REASON FOR EXAM: Female, 66 years old. Routine annual screeningexamination. PERTINENT HISTORY: Mother with breast cancer. Aunt with breast cancer. BAMBI PIRES: D igital examination. Mediolateral oblique (MLO) andcraniocaudad (CC) views of both breasts were obtained. CAD: CAD wasperformed on this study. COMPARISON: Comparison is made with prior studies dated N nd August 02 2010. FINDINGS:The breast composition is [...] Abrams M.D.August 06, 2012 at 8:30:02 AM [id number] Signed GP/GP If you are the referring physician and would like t o consult with theradiologist who provided this interpretation, please contact Tg Watkins at [phone]. If this radiologist is unavailable, youwill be directed to another radiologist to assist. If you are a patient with a question regarding this report, pleasecontactyour referring physician directly. Professional Interpretation Provided By: [employer], Phone ,Fax These documents contain legally protected [...] return or destructionofthese documents. Dictated on 08/06/12 4683 by Ashlee Abrams MDranscribed on 08/06/12 1324 by ITS IMPORTSign by Lazaro Abrams MD on 08/06/12 1325 Sign by: Lazaro Abrams MD 8-Tib-318934:37 BILAT SCRN DIGITAL & CAD Radiology Report [...] 08/06/11 1208 Sign by: Lazaro Abrams MD 9-Tjq-156072:37 DEXA BONE DENSITY STUDY (HP) Radiology Report [...] Dictated on 08/05/11 1541 by Benito Abrams MD ed on 08/06/11 1117 by ITS IMPORTSign by Lazaro Abrams MD on 08/06/11 1118 Sign by: Lazaro Abrams MD 02-Aug-20109:57 BILAT SCRN DIGITAL & CAD Radiology Report See Note (Normal) Comments: Exam Number: [id number] AMMOGRAPHY - BILATERAL SCREENING INDICATION:Routine annual screening [...] By: MARLON KNOWLES M.D. 03-Jul-20109:15 Urinalysis, Office (84360) UA - LEUKOCYTE ESTERASE Negative (Normal) UA - NITRITE Negative (Normal) URINE UROBILINGN CONCHA TIMED Normal mg/dL (Normal) UA - PROTEIN Negative mg/dL (Normal) UA - PH 7.0 (Normal) UA - BLOOD Hemolyzed Small (Normal) UA - SPECIFIC GRAVITY 1.010 (Normal) UA - KETONES Negative mg/dL (Normal) UA - BILIRUBIN Negative (Normal) UA - GLUCOSE Negative (Normal) 37-Zgo-555243:21 URINE DIANA CULTURE-IDENTIFICATN Comments: PATIENT NOT FASTINGPERFORMED BY: [facility] Qtnefw7389 [facility] [id number] Information: [id number] (73312) Result 1 NG36 (Normal) Comments: No growth in 36 - 48 hours. Urine Culture,Comprehensive Final report (Normal) 36-Qur-864883:56 Urinalysis, Office (76012) UA - LEUKOCYTE ESTERASE Negative (Normal) UA - NITRITE Negative (Normal) URINE UROBILINGN CONCHA TIMED Normal mg/dL (Normal) UA - PROTEIN Negative mg/dL (Normal) UA - PH 7.0 (Normal) UA - BLOOD Hemolyzed Moderate (Normal) UA - SPECIFIC GRAVITY 1.015 (Normal) UA - KETONES Negative mg/dL (Normal) UA - BILIRUBIN Negative (Normal) UA - GLUCOSE Negative (Normal) 91-Hjk-455717:31 URINE DIANA CULTURE-CONCHA COL Comments: PATIENT NOT FASTINGPERFORMED BY: [facility] Lwrpen6670 [facility] [id number] Information: SRC:UR [id number] COUNT (34207) Antimicrobial MIHEAD (Normal) Comments: S = Susceptible; I = Intermediate; R = Resistant P = Positive; N = NegativeMICS are expressed in micrograms per mLAntibiotic RSLT#1 RSLT#2 RSLT#3 RSLT#4Am oxicillin/Cl Susceptibility avulanic Acid SAmpicillin SCefepime SCeftriaxone SCefuroxime SCephalothin SCiprofloxacin SESBL NGentamicin SImipenem SLevofloxacin SNitrofurantoin SPiperacillin/Tazobactam Jus tracycline STobramycin STrimethoprim/Sulfa S Result 1 Escherichia coli Comments: 4,000 Colonies/mL (Normal) Urine Final report (Normal) Culture,Comprehensive 89-Nnn-27540:41 Urinalysis, Office (81612) Comments: done km UA - LEUKOCYTE ESTERASE [...] Report See Note (Normal) Comments: Exam Number: [id number] BONE DENSITOMETRY HISTORYPostmenopausal. TECHNIQUE Bone densitometry of the lumbar spine and both hips is now beingperformed. The best criteria for evaluation of osteoporosis is theT-value, which represents the comparison of the patient's bone mass [place] expected peak bone mass. For most patients, the mean T-value of O6cdgrhfw L4 is used to evaluate the lumbar [...] is measured at 0.3% less than in 2002and 1% more than in 2006.The T-value of the right femoral neck is -0 .5, which is within normallimits.The T-value of the total right hip is 0.5, which is normal. IMPRESSIONBone densitometry of the lumbar spine and both hips is within normallimits. Reported By: MARLON KNOWLES M.D. 08-Vuc-51318:51 CA 125 (34671) Comments: PATIENT NOT FASTINGClinical Information: ADD [id number] PERFORMED BY: [facility]6370 [facility] [id number] Cancer Antigen (CA) 125 6.3 U/mL (Normal) Range: 0.0-35.0 Comments: CelnyxA methodology .Effective June 18, 2009, CA-125 will be changing to the Desirae ECLIA methodology. The reference inter nancy will be changing to: 0.0 - 34.0 Rebaselining will be offered for 90 days using panel [id number]. Available from 06/11/09 - 09/10/09. The second result, provided by the CelnyxA methodology will be provided at no charge. 42-Mro-368026:55 BILAT SCRN DIGITAL & CAD Radiology Report See Note (Normal) Comments: Exam Number: [id number] MAMMOGRAM, BILATERAL SCREENING DIGITAL AND CAD HISTORYRoutine [...] werealso examined with computer-aid ed detection software (Promosome, myeasydocs.). Reported By: MARLON KNOWLES M.D. 09-Bsp-94684:18 CERV SPINE,MIN 4 VIEWS Radiology Report See Note (Normal) Comments: Exam Number: [id number] CLINICAL DATANeck pain on the left side. Lifted something in August. EXAMINATIONCervical spine. 6 views of the cervical spine show normal alignment. There iscervical spond ylosis at C5-6 and C6-7, with associated degenerative orhypertrophic spurs. Prevertebral soft tissue appears unremarkable. There is loss of normal cervical lordosis, probably secondary tomuscle spasm. There is mzxl-tx-fgjdqnhx encroachment on the rightneural foramina at C5- 6. There is mild encroachment on the bilateralneural foramina at C6-7. Odontoid process unremarkable. IMPRESSION Cervical sp ondylosis at C5-6 and C6-7, with ubzq-nd-okhzdgbowygnbntavoqo on the right neural foramina at C5-6. Mild encroachmenton the bilateral neural foramina at C6-7. Reported By: DIANA KENNEDY 9-Qvr-887985:43 CHEST, PA AND LATERAL (MT) Radiology Report See Note (Normal) Comments: Exam Number: [id number] PA AND LATERAL CHEST CLINICAL INFORMATIONAbnormal lung [...] 200-240 mg/dL Borderline >240 mg/dL High Risk 06-Fqx-057701:46 BILAT SCRN DIGITAL & CAD Radiology Report See Note (Normal) Comments: Exam Number: [id number] BILATERAL SCREENING DIGITAL MAMMOGRAPHY WITH COMPUTED ASSISTEDDETECTION [...] The mammogramswere also examined with computer-aided detection software([employer] Reported By: ANUEL WILSON M.D. :2 GLUP 89 mg/dL (Normal) Comments: GLU,2HPPG 75gm GLUC PPG GLUP from 1024:E00035Q. 5 :0 CA125 2303 5.2 U/mL (Normal) Range: 0.0-35.0 9 Comments: Pito ICMA methodologyPerformed At: [facility] [address] [place], [place] [id number] :09 LIPID CHOL 172 mg/dL (Normal) Comments: [...] mg/dL VLDL 19 mg/dL (Normal) Range: 5-40 :28 BILAT SCRN DIGITAL & CAD Radiology Report See Note (Normal) Comments: Exam Number: [id number] BILATERAL SCREENING MAMMOGRAPHY HISTORYRoutine screening. COMPARISONComparison is [...] ma mmogramswere also examined with computer-aided detection software([employer] Reported By: JENARO HERNANDEZ M.D. :27 DEXA BONE DENSITY STUDY (HP) Radiology Report See Note (Normal) Comments: Exam Number: [id number] BONE DENSITOMETRY HISTORYOsteopenia. TECHNIQUE Bone densitometry of [...] Plan of Care Name Dates Details Instructions Encounter for annual general medical examination with [...] medical examination with abnormal findings in adult BMI 31.0-31.9,adult : Eprescribed prescriptions (G8553) Indication: BMI 31.0-31.9,adult Benign essential HTN : Follow up in [...] aneurysm, abdominal Aortic aneurysm, abdominal : Reviewed [employer] Analyst Letter Indication: Aortic aneurysm, abdominal Cough : [...] Planned Observations FECAL OCCULT- Tubes sent home (50672)Indication: Encounter for screening for malignant neoplasm of colon (Renamed from Special screening for malignant neoplasms, colon) On: :38 Request CALCIFIDIOL (60202) VIT D 25Indication: Vitamin D deficiency On: :32 Request URINALYSIS, W/ MICRO (03935)Indication: Benign essential HTN On: :32 Request MICROALBUMIN: CREATININE RATIO (08963) AND (44744)Indication: Benign essential HTN On: : Request METABOLIC PANEL, COMPREHENSIVE (90618)Indication: Benign essential HTN On: : Request LIPID PANEL (73351)Indication: Benign essential HTN On: : Request CBC W/AUTO DIFF WBC (01966)Indication: Benign essential HTN On: :32 Request OVA & PARASITE DIR SMEAR (87239)Indication: Diarrhea On: :30 Request OCCULT BLOOD FECES SCREEN (11870)Indication: Diarrhea On: :30 Request LEUKOCYTE COUNT, FECAL (81417)Indication: Diarrhea On: :29 Request C-DIFFICILE, STOOL (10264)Indication: Diarrhea On: :29 Request DIANA CULTURE-STOOL (69661)Indication: Diarrhea On: :29 Request CBC, PLATELETS & MANUAL DIFF (72821)Indication: Phlebitis of arm On: :30 Request MAGNESIUM (91763)Indication: Diarrhea On: :00 Request Renal function Panel (53908)Indication: Benign essential HTN On: :00 Request CBC, Platelets & Auto Diff (07730)Indication: Lower GI bleed On: :00 Request CALCIFIDIOL (25396) VIT D 25Indication: Vitamin D deficiency On: :18 Request METABOLIC PANEL, COMPREHENSIVE (63201)Indication: Hernia, umbilical On: :01 Request CBC (AUTO) (21274)Indication: Hernia, umbilical On: :01 Request SED RATE ERYTHROCYTE (45605)Indication: Hernia, umbilical On: :01 Request C-REACTIVE PROTEIN (59190)Indication: Hernia, umbilical On: :01 Request CALCIFEDIOL (25106)Indication: Vitamin D deficiency On: 28-Hay-786838:16 Request FECAL OCCULT- Tubes sent home (66245)Indication: Encounter for screening for malignant neoplasm of colon (Renamed from Special screening for malignant neoplasms, colon) On: 2-Fgk-682210:44 Request FECAL OCCULT HGB ASSAY- tubes sent home (26659)Indication: Encounter for Medicare annual wellness exam On: :30 Request URINE DIANA CULTURE-CONCHA COL COUNT (42595)Indication: Dysuria On: :49 Request FECAL OCCULT HGB ASSAY- tubes sent home (04834)Indication: Well woman exam On: :49 Request LIPOPROTEIN, BLD, BY NMR (70393)Indication: Well woman exam On: :30 Request LIPID PANEL (17314)Indication: Well woman exam On: :30 Request FECAL OCCULT HGB ASSAY- tubes sent home (62500)Indication: Well woman exam On: :24 Request FECAL OCCULT HGB ASSAY- tubes sent home (54576)Indication: Well woman exam On: :52 Request OCCULT BLOOD FECES SCREEN- card done in office (29194)Indication: Well woman exam On: 45-Txo-476607:42 Request Glucose, PP/2 Hour (67885)Indication: Family history of diabetes mellitus On: 5-Wdw-340449:16 Request Planned Procedures ULTRASOUND (CAROTID) (78838)By: On: 03-Sep-2018 Intent Nelia Smith DO, DO, Kathleen INTENSIVE BEHAVIORAL THERAPY TO On: 03-Sep-2018 Intent REDUCE CARDIOVASCULAR DISEASE RISK, INDIVIDUAL, DYFW-MO-XQIV, ANNUAL, 15 MINUTES (G0446)By: Nelia Smith DO, DO, Kathleen SCREENING DIGITAL TOMOSYNTHESIS OF On: 03-Sep-2018 Intent BREAST (83810)By: Nelia Smith DO, DO, Kathleen Flu Vaccine (Quadrivalent) 41409Vs: On: 03-Sep-2018 Intent Monik Salas Comments: Lot #[id number]-R dltd, IMAmount: 0.5mlVIS reviewed and ABN signedgiven by:Monik Salas CCMAVIS reviewed and ABN signed SIX MINUTE WALK TEST ([id number])By: On: 19-May-2018 Intent Visit, Nurse Nuclear Stress Test/Stress On: 24-Sep-2017 Intent SPECT/TreadmillBy: Nelia Smith DO, DO, Kathleen Echo CompleteBy: Nelia Smith DO On: 24-Sep-2017 Intent Nelia Smith DO ELECTROCARDIOGRAM, COMPLETE (ECG) On: 24-Sep-2017 Intent ([id number])By: Nelia Smith DO Comments: nsr poor r wave progression there is new , T wave inversionin ant septal precordial leads Nelia Smith DO Spirometry ([id number])By: Luis REA, On: 24-Sep-2017 Intent Nelia Robles DO Comments: restricition but poor curve Flu Vaccine (Quadrivalent) 40011Ip: On: 10-Aug-2017 Intent Nelia Smith DO, DO, Comments: lot: [id number]: 03/15/18ite/route: R lux, IMamt: 0.5mlVIS and ABN signed when applicableCheMOON menendez COMPUTED TOMOGRAPHY ANGIOGRAPHY OF On: 10-Aug-2017 Intent THORACIC AORTA ([id number])By: Luis REA, Comments: CTA thoracic aorta aneurysm with contrast results & images to [facility] vascular surgery fax : [phone] Nelia Robles DO DEXA SCAN AXIAL SKELETON ([id number])By: On: 10-Aug-2017 Nelia Diaz DO, DO, Kathleen SCREENING DIGITAL TOMOSYNTHESIS OF On: 10-Aug-2017 Intent BREAST ([id number])By: Nelia Smith DO, DO, Kathleen Radiology - Chest- PA and LatBy: On: 20-Oct-2016 Intent Nelia Smith DO, DO, Kathleen Aerosol Treatment ([id number])By: Luis On: 20-Oct-2016 Intent Nelia REA DO, Kathleen Comments: more a/e and softer noise Aerosol Treatment ([id number])By: Jennifer On: 14-Oct-2016 Intent SCOOTER MECHANIC, Josseline Aerosol Treatment ([id number])By: Lorenzo On: 04-Sep-2016 Intent Doris GUNTER [id number] BEHAVIORAL COUNSELING On: 29-Jul-2016 Intent FOR OBESITY, 15 MINUTES ([id number])By: Nelia Smith DO, DO, Kathleen MAMMOGRAM, SCREENING, BOTH BREAST On: 29-Jul-2016 Intent ([id number])By: Nelia Smith DO, DO, Kathleen Spirometry ([id number])By: Luis REA, On: 29-Jul-2016 Intent Nelia Robles DO Comments: mild restriciton but i think some techniq related chg ELECTROCARDIOGRAM, COMPLETE (ECG) On: 29-Jul-2016 Intent ([id number])By: Nelia Smith DO Comments: nsr no acute chg Nelia Smith DO Flu Vaccine (Quadrivalent) [id number]: On: 29-Jul-2016 Nelia Diaz DO, DO, Comments: FLUlot: [id number]:02/11site:Lt deltoidroute:IMdose:.5mlDERAHEEM CAMPOVERDE Venous Doppler - UpperBy: Arsen REA, On: 16-Apr-2016 Intent Amrita A Comments: bliateral arms VENOUS DUPLEX SCAN OF BILATERAL On: 01-Jan-2016 Intent UPPER EXTREMITIES ([id number])By: Luis Comments: Standing order Nelia REA DO, Kathleen DOPPLER ULTRASOUND OF RIGHT UPPER On: 20-Dec-2015 Intent EXTREMITY FOR VENOUS THROMBOEMBOLISM ([id number])By: Nelia Smith DO, DO, Kathleen Doppler Ultrasound OtherBy: Luis On: 20-Dec-2015 Nelia Escudero DO, DO, Kathleen Comments: Left upper extremity -- to be sched next week Doppler Ultrasound OtherBy: Luis On: 20-Dec-2015 Nelia Escudero DO, DO, Kathleen Comments: STAT RU extremity-- call [phone] with results Venous Doppler - LeftBy: Luis REA, On: 18-Dec-2015 Intent Nelia Robles DO Comments: Pt needs to have done on either 12/19 or 12/20. Please call [facility] to [phone]. If after hours, please call to BAIT DIGGER DOCTOR Doppler Ultrasound OtherBy: Luis On: 17-Dec-2015 Intent Nelia REA DO, Kathleen Comments: left upper extremity -post op redness swelling and pain after IV attempt CT - Abdomen & Pelvis (IV Contrast On: 30-Aug-2015 Intent Needed)By: Nelia Smith DO Comments: GFR 06/12 74 Nelia Smith DO ZZRI-YN-QLON BEHAVIORAL COUNSELING On: 29-Jun-2015 Intent FOR OBESITY, 15 MINUTES ([id number])By: Nelia Smith DO, DO, Kathleen DEXA SCAN AXIAL SKELETON ([id number])By: On: 29-Jun-2015 Intent Nelia Smith DO, DO, Kathleen MAMMOGRAM, SCREENING, BOTH BREAST On: 29-Jun-2015 Intent ([id number])By: Nelia Smith DO, DO, Kathleen ELECTROCARDIOGRAM, COMPLETE (ECG) On: 01-Jun-2015 Intent ([id number])By: Lorraine Romero LPN EKG ([id number])By: Nelia Smith DO On: 04-Apr-2015 Intent Nelia Smith DO Comments: nsr- no acute chg Doppler Ultrasound OtherBy: Luis On: 12-Mar-2015 Intent Nelia REA DO, Kathleen Radiology - Knee - RightBy: Luis On: 05-Feb-2015 Intent Nelia REA DO, Kathleen Aerosol Treatment ([id number])By: Ciesa On: 10-Jul-2014 Intent Albina HARRIS MAMMOGRAM, SCREENING, BOTH BREAST On: 19-Jun-2014 Intent ([id number])By: Nelia Smith DO, DO, Kathleen Echo CompleteBy: Nelia Smith DO On: 09-Jun-2014 Intent Nelia Smtih DO Radiology - Chest- PA and LatBy: On: 09-Jun-2014 Intent Nelia Smith DO, DO, Kathleen EKG ([id number])By: Nelia Smith DO On: 09-Jun-2014 Intent Nelia Smith DO Comments: nsr no acute chg Aerosol Treatment ([id number])By: Luis On: 07-Dec-2013 Nelia Escudero DO, DO, Kathleen Comments: more a/e and more noise in RLL - Spirometry ([id number])By: Luis REA, On: 07-Dec-2013 Intent Nelia Robles DO Comments: mild obstruction Bone Density StudyBy: Luis REA, On: 15-Jun-2013 Intent Nelia Robles DO Breast Screening - BilateralBy: On: 15-Jun-2013 Intent Nelia Smith DO, DO, Kathleen MAMMOGRAM, SCREENING, BOTH BREASTS On: 03-Jun-2013 Intent ([id number])By: Nelia Smith DO Comments: dx screening Nelia Smith DO DXA, BONE DENSITY, AXIAL SKELETON On: 03-Jun-2013 Intent ([id number])By: Nelia Smith DO, DO, Kathleen Eprescribed prescriptions ([id number])By: On: 03-Jun-2013 Intent Jaimee Sorensen LPN Pulse Oximetry ([id number])By: Arsen REA, On: 23-Mar-2013 Intent Amrita A Comments: 96 Spirometry ([id number])By: Arsen REA, On: 23-Mar-2013 Intent Amrita A Comments: good attempt but flat curve mod obst Aerosol Treatment ([id number])By: Arsen On: 23-Mar-2013 Amrita Escudero DO Eprescribed prescriptions ([id number])By: On: 23-Mar-2013 Intent ManchakLaverneMicki PNEUM VAC ADLT/IMUMNOSPR, SBC/INTRM On: 01-Jul-2012 Intent ([id number])By: Nelia Smith DO Comments: 0.5 cc given im lt arm lot [id number] exp 11/28/13 Nelia Smith DO IMMUNIZ ADMNIN, 1 VAC, SNGL/COMBO On: 01-Jul-2012 Intent ([id number])By: Nelia Smith DO, DO, Kathleen MAMMOGRAM, SCREENING, BOTH BREASTS On: 01-Jul-2012 Intent ([id number])By: Jaimee Sorensen LPN Aerosol Treatment ([id number])By: Jennifer On: 16-Feb-2012 Intent STEVEN Josseline Aerosol Treatment ([id number])By: Jennifer On: 08-Jul-2011 Intent Albina HARRIS TDAP VACCINE >7 IM ([id number])By: Luis On: 01-Jul-2011 Intent Nelia REA DO, Kathleen Comments: Lot #[id number]-19/20/13Site-right deltoidgiven by: [place] LPN DXA, BONE DENSITY, AXIAL SKELETON On: 01-Jul-2011 Intent ([id number])By: Jaimee Sorensen LPN MAMMOGRAM, SCREENING, BOTH BREASTS On: 01-Jul-2011 Intent ([id number])By: Jaimee Sorensen LPN Pulse Oximetry ([id number])By: Luis REA, On: 23-Jun-2011 Intent Nelia Robles DO Comments: 97% Aerosol Treatment ([id number])By: Luis On: 23-Jun-2011 Intent Nelia REA DO, Kathleen Comments: more a/e less noise but rhonchious persitns Pulse Oximetry ([id number])By: Jennifer HARRIS, On: 09-Dec-2010 Intent Alibna Rudd Aerosol Treatment ([id number])By: Jennifer On: 09-Dec-2010 Intent Albina HARRIS Pulse Oximetry ([id number])By: Jb RN, On: 12-Nov-2010 Intent Deanne MAMMOGRAM, SCREENING, BOTH BREASTS On: 03-Jul-2010 Intent ([id number])By: Jaimee Sorensen LPN Clinical Breast Examination On: 03-Jul-2010 Intent ([id number])By: Jaimee Sorensen LPN DXA, BONE DENSITY, AXIAL SKELETON On: 15-Jun-2009 Intent ([id number])By: Nelia Smith DO, DO, Kathleen Clinical Breast Examination On: 15-Jun-2009 Intent ([id number])By: Nelia Smith DO, DO, Kathleen PHYSICAL THERAPY EVALUATION On: 05-Mar-2009 Intent ([id number])By: Albina Rodriguez CNP Radiology - Cervical SpineBy: Jennifer On: 05-Mar-2009 Intent Albina HARRIS Inhaler Demonstration ([id number])By: On: 05-Mar-2009 Intent Jennifer Albina HARRIS Aerosol Treatment ([id number])By: Jennifer On: 05-Mar-2009 Intent Albina HARRIS Pulse Oximetry ([id number])By: Jennifer HARRIS, On: 05-Mar-2009 Intent Albina Rudd Solu- Medrol Injection, 125mg On: 31-Jul-2008 Intent ([id number])By: Nelia Smith DO Comments: Lot #[id number] 2011Site-right xciVwim887kh/2mlgiven by Nelia Escamilla LPN, DO Radiology - Chest- PA and LatBy: On: 31-Jul-2008 Nelia Diaz DO, DO, Kathleen Spirometry ([id number])By: Luis REA, On: 31-Jul-2008 Intent Nelia Robles DO Comments: done before and after aerosol tx.-AWnot much improvement after inhaler Inhaler Demo ([id number])By: Luis REA, On: 31-Jul-2008 Intent Nelia Robles DO Comments: done-aw Pulse Oximetry ([id number])By: Luis REA, On: 31-Jul-2008 Intent Nelia Robles DO Comments: 96% Aerosol Treatment ([id number])By: Luis On: 31-Jul-2008 Nelia Escudero DO, DO, Kathleen Comments: done-[place] air exchange actually opened up and more noise Instructions Name Dates Details Benign essential HTN : cardiovascular counseling Indication: Benign essential HTN BMI 31.0-31.9,adult : How to access health information online Indication: BMI 31.0-31.9,adult BMI 31.0-31.9,adult : How to access health information online - Detail Indication: BMI 31.0-31.9,adult BMI 31.0-31.9,adult : Patient Instructions Indication: BMI 31.0-31.9,adult Nonsmoker : How to access health information [...] neoplasm of breast Encounters Office Visit On: 03-Sep-2018 10:37 Encounter Reason: Annual Medicare Exam - The patient had reviewed and updated the family history, medication/s, past medical history and social history. Yes the patient did have () a mini mental status exam done tod End: 03-Sep-2018 11:37 ay. The patient would like education and information on weight loss, meals and exercise programs. The activities of daily living the patient needs help with are none. The patient has driven in past 6 mo nths and put area rugs through house, but the patient has not had fecal incontinence, had urinary incontinence, missed or ran out of medications to soon, fallen in the past 6 months, gotten lost, has a medalert necklace or bracelet or put handrails in bathroom. The patient has completed the following preventative measures: PAP smear (unknown), mammography (need order last done 09/22/17), PSA testing a nd colonoscopy (9 yrs ago due back in 2019). The patient does have durable power of deputy prosecuting attorney and living will. The patient has noticed nothing from the geriatic depression scale. Other provider s contributing to the patient's care are radiation physicist () and urologist ().Encounter Diagnosis: Need for prophylactic vaccination and inoculation against influenza (Renamed from Need for immunization against influenza), Non-smoker, BMI 31.0-31.9,adult, Encounter for screening mammogram for breast cancer (Renamed from Encounter for screening mammogram for malignant neoplasm of breast), Encounter for annual general medical examination with abnormal findings in adult, Benign essential HTN, Post-menopausal, Encounter for screening for malignant neoplasm of colon (Renamed from Special screening for malignant neoplasms, colon), Carotid occlusion, bilateral [facility] Office Visit On: 26-May-2018 10:21 Encounter Reason: [...] The patient does have durable power of deputy prosecuting attorney and living will. The patient has noticed nothing from the [facility] depression scale. Other providers contributing to [...] sore throat. The cough is described as barkyhonakash End: 04-Sep-2016 10:34 g, tight, dry and [...] The patient does have durable power of deputy prosecuting attorney and living will . The patient has noticed nothing from the geriatic depression scale. Other providers contributing to the patient's care are radiation physicist (Dr. Forbes), gastrologist (Dr. Foster) and other: [...] [ADDITIONAL REASON] Follow up tests - Date: (12/20/15 scanned in wet read.). Encounter Diagnosis: Phlebitis [...] . Note for Transition into care: To [facility] on 12-06diarhea and red blood per [...] The patient does have durable power of deputy prosecuting attorney and living will. The patient has noticed nothing from the ge riatic depression scale. Other providers contributing to the patient's care are surgeon (vascular - Angel, Katia - Marleni) and other: (eye doc - [facility], [facility] )., [ADDITIONAL REASON] Well Women Exam - [...] hospital (abdominal aortic aneurysm was in last thu) and a summary of care was not [...] The patient does have durable power of deputy prosecuting attorney and living will. The patient has noticed [...]
--- OUTSIDE RECORDS SUMMARY | 2018-10-26 21:08 | XMS RPT_ITS ---
:1945 Author Organization OHIP Care Team Providers Name Role Phone Luis DO, Nelia Attending Unavailable Luis DO, Nelia Referring Unavailable Luis DO, Nelia Consulting Unavailable TEENA CURRY Attending Unavailable TEENA CURRY Referring Unavailable Luis, Nelia Primary Care Unavailable TEENA CURRY Referring Unavailable Luis, Nelia Primary Care Unavailable Luis, Nelia Attending Unavailable TEENA CURRY Consulting Unavailable Luis, Nelia Primary Care Unavailable Laura Alves Attending Unavailable Luis, Nelia Attending Unavailable Luis, Nelia Primary Care Unavailable PROBLEMS PROBLEMS DATE TYPE CONDITION / CODE ATTENDING STATUS SOURCE 09/10/2018 Unknown 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 Community / I72.2(ICD-10) Hospital Repository PROCEDURES PROCEDURES No Procedure Records FoundRESULTS RESULTS SCREENING MAMM (CAD), Observed: 10/06/2018 Status: F Source: [facility] BILAT 12:28 PM [facility] REPOSITORY [facility] Imaging Services [address] [place] [address] SCREENING MAMM (CAD), BILAT MR#: [id number] Acct: [id number] Name: LEYLA PERKINS Rep #: [id number] : 1945 F 73 From: Lazaro Abrams MD PCP: Nelia Smith DO Status: REG CLI Study: SCREENING MAMM (CAD), BILAT Date of Exam: 10/06/18 Exam# [id number] Ordering Dr: Nelia Smith DO MAMMOGRAPHY - BILATERAL SCREENING REASON FOR EXAM: Female, 73 years old. Routine annual screening examination. PERTINENT HISTORY: Mother with breast cancer. Aunt with breast cancer. Prior bilateral excisional breast biopsies. TECHNIQUE: Digital bilateral breast katelyn (3D mammographic acquisition) in the CC and MLO projections. 2-D mediolateral oblique (MLO) and craniocaudad (CC) views of both breasts were obtained. CAD: Full Field Digital Mammography with Computer Added Detection was performed. COMPARISON: Comparison is made with prior study dated September 22, 2017 and August 15, 2016. FINDINGS: Breast Composition: There are scattered areas of fibroglandular density. There are no dominant masses or suspicious calcifications. No other significant abnormalities are identified. There has been no significant change since the prior study. BI/SCREENING MAMM (CAD), BILAT IMPRESSION: Stable bilateral screening mammogram. Yearly follow-up mammogram recommended. (A) ASSESSMENT CATEGORY: BIRADS Category 1: Negative. A letter regarding these results will be sent to the patient by the facility within 30 days. Approximately 10% of breast cancers are not detected by mammography. A normal mammogram should not delay biopsy of a clinically suspicious abnormality. [id number] Electronically Signed: Lazaro Abrams MD at 14:09 EST Tel [phone], Service support , CC: Nelia Smith DO Locomotive Crane Operator Helper: Signed CAROTID DUPLEX Observed: 09/21/2018 Status: F Source: [facility] ULTRASOUND 6:02 AM [facility] REPOSITORY [facility] Cardiovascular [place] [address] Carotid Duplex Ultrasound 09/20/18 1245 MR#: [id number] Acct: [id number] Name: LEYLA PERKINS Rep #: [id number] : 1945 73 From: Darrell Falcon MD Attending Dr: Nelia Smith DO Status: REG CLI Ordering Dr: Nelia Smith DO Date: 09/20/18 Location: CVS Sex: F C Admitted: Reason For Study: Carotid Occlusion Rt. Velocities/BP Lt. Velocities/BP Prox CCA 73/18 cm/sec. Prox CCA 77/17 cm/sec. Mid CCA 41/9 cm/sec. Mid CCA 65/12 cm/sec. Dist CCA 57/11 cm/sec. Dist CCA 49/12 cm/sec. Prox ICA 57/15 cm/sec. Prox ICA 57/11 cm/sec. Mid ICA 43/11 cm/sec. Mid ICA 68/19 cm/sec. Dist ICA 48/14 cm/sec. Dist ICA 66/18 cm/sec. Rt. ICA/CCA = 1.39. Lt. ICA/CCA = 1.05. Prox ECA 102/16 cm/sec. Prox ECA 105/14 cm/sec. Rt. Vert. 48/13 cm/sec. Lt. Vert. 45/10 cm/sec. Right Extracranial There is intimal thickening but no significant atherosclerotic plaque noted in the right common carotid artery. There is intimal thickening but no significant atherosclerotic plaque noted in the right internal carotid artery. There is intimal thickening but no significant atherosclerotic plaque noted in the right external carotid artery. Antegrade flow is noted in the right vertebral artery. Left Extracranial There is intimal thickening but no significant atherosclerotic plaque noted in the left common carotid artery. There is intimal thickening but no significant atherosclerotic plaque noted in the left internal carotid artery. There is heterogeneous, irregular atherosclerotic plaque noted in the left external carotid artery. Antegrade flow is noted in the left vertebral artery. Procedure Carotid Duplex 72246. Exam performed in department. Interpretation Summary No hemodynamically significant plague or stenosis bilateral extracranial internal carotids with <50% stenosis bilaterally. Normal flow bilateral external carotids with minimal plague on the left Patent and antegrade vertebral arteries bilaterally Ordering Physician: Nelia Smith Referring Physician: Nelia Smith Performed By: Lorenza Almonte, GISEL, RVT 09/21/18 0601 Date Darrell Falcon MD CC: DEL BRITO; Nelia Smith DO Date Dictated: 09/20/18 1245 Date Transcribed: 09/21/18600 Locomotive Crane Operator Helper: Signed CTA CHEST W/WO Observed: 09/20/2018 Status: F Source: [facility] CONTRAST 1:13 PM [facility] REPOSITORY [facility] Imaging Services [address] [place] [address] CTA Chest W/WO Contrast MR#: [id number] Acct: [id number] Name: LEYLA PERKINS Rep #: [id number] : 1945 F 73 From: Mario Ohara MD PCP: Nelia Smith DO Status: REG CLI Study: CTA Chest W/WO Contrast Date of Exam: 09/20/18 Exam# [id number] Ordering Dr: Nelia Smith DO STUDY: CTA CHEST REASON FOR EXAM: Female, 73 years old. Follow up thoracic aortic aneurysm. RADIATION DOSAGE (If Supplied By Facility): CTDIvol = ( 15.08 ) mGy, DLP = ( 387.92 ) mGycm TECHNIQUE: The examination was performed with the intravenous administration of 75 ml of Isovue 370 contrast material. Post-processing of the angiographic images was performed, with multiplanar reformation and 3D reconstruction. Individualized dose optimization techniques were used for this CT. COMPARISON: 08/24/2017 FINDINGS: There is a stable calcified granuloma in the right lower lobe. There are no new or suspicious pulmonary nodules. There are no pulmonary infiltrates or pleural effusions. There is no pneumothorax. There is no pulmonary embolus. Again noted is a patent endograft in the descending thoracic aorta. There is no evidence of endoleak. There is stable aneurysmal dilatation of the descending aorta, measuring up to 4.1 x 3.8 cm. There is stable mural thrombus within the lumen of the aneurysm. There is no evidence of thoracic aortic dissection. The great vessels are patent and normal in caliber. The heart is normal in size. There is no pericardial effusion. There are calcified mediastinal and hilar lymph nodes, consistent with prior granulomatous disease. Images through the upper abdomen demonstrate hepatic and splenic granulomata. There are no destructive osseous lesions. 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 No evidence of pulmonary embolus. Evidence of prior granulomatous disease. Electronically Signed: Mario Ohara, at 14:50 EST Tel , Service support , CC: Nelia Smith DO Locomotive Crane Operator Helper: Signed BUN Collected: 09/10/2018 Status: F Source: [facility] 8:41 AM [facility] REPOSITORY TYPE CODE TESTS RESULT OUT OF RANGE REFERENCE UNITS LAB L501.1000 7-18 mg/dL Normal BUN 12 Performed By: #### L501.1000, L501.1105 #### Laboratory [address] [place], [address] SERUM CREATININE AND Collected: 09/10/2018 Status: F Source: [facility] GFR 8:41 AM [facility] REPOSITORY TYPE CODE TESTS RESULT OUT OF RANGE REFERENCE UNITS LAB L501.1100 0.55-1.02 mg/dL Normal 0.90 CREAT,SERUM Result Comment: The validity of the calculated GFR AND GFRAA in patients over 70 years has not been determined. Clinical correlation is essential. LAB L501.1110 >60 mL/min Normal EST GFR 65 Result Comment: Non- GFR Calc LAB L501.1115 >60 mL/min Normal EST GFR - AA 79 Result Comment: GFR Calc Performed By: #### L501.1000, L501.1105 #### Laboratory [address] [place], [address] 12 LEAD ELECTROCARDIOGRAM Observed: 01/29/2018 Status: F Source: [facility] 3:17 PM [facility] REPOSITORY [facility] Cardiovascular Services [address] [place] [address] 12 Lead EKG 01/25/188 MR#: [id number] Acct: [id number] Name: LEYLA PERKINS Rep #: [id number] : 1945 72 From: Ceasar Hyman MD Attending Dr: Status: DEP ER Ordering Dr: Laura Alves MD Date: 01/25/18 Location: ED Sex: F C Admitted: Test Reason : GI BLEED Blood Pressure : / mmHG Vent. Rate : 087 BPM Atrial Rate : 087 BPM P-R Int : 118 ms QRS Dur : 076 ms QT Int : 364 ms P-R-T Axes : 056 054 042 degrees QTc Int : 438 ms Normal sinus rhythm Nonspecific ST abnormality Abnormal ECG Confirmed by CEASAR HYMAN MD ([id number]), visual effects editor TARA SERRANO ([id number]) on 01/29/2018 3:16:23 PM Referred By: LIZETH Confirmed By:CEASAR HYMAN MD 01/29/18 1516 Date Ceasar Hyman MD CC: Laura Alves MD; Nelia Camarena EMERGENCY DEPARTMENT Observed: 01/25/2018 Status: F Source: [facility] SUMMARY 10:28 PM [facility] REPOSITORY [facility] Medical Records Department [address] [place] [address] Emergency Department Summary 01/25/181937 MR#: [id number] Acct: [id number] Name: LEYLA PERKINS Rep #: [id number] : 1945 72 From: Laura Alves MD [...] denies abdominal pain. Denies recent antibiotics, recent travel. Denies possibility of bad food exposure. She [...] given IV fluids. EKG is normal sinus rhythm rate of 87. CBC, chemistries unremarkable. INR is 1.2. Stool is guaiac negative. Orthostatics are negative. Patient had no further diarrhea in the emergency department. She has a normal white count. Her hemoglobin is 15.2. She is comfortable with discharge home and follow-up with her primary care physician. She is advised return to ED for any worsening complaints. Disposition: Discharge home Impression: Diarrhea This note was generated with 2Peer (Qlipso) dictation software. It may contain incorrect words, spelling, and punctuation that were not noted in review of the chart prior to signing ED Disposition - Plan for ED Patient: Chief Complaint: GI Bleed Instructions: ED Diarrhea Viral Referrals: Nelia Smith DO [Primary Care Provider] - What to do if you have Problems For any increased pain, shortness of breath, bleeding, nausea or vomiting, chest pain, or any unexpected problems, contact your Primary Care Provider. Call [facility] ([phone]) or report to the closest Emergency Room. Call 911 if necessary. 01/25/182227 <Electronically signed by Laura Alves MD> Date Laura Alves MD Cosigner Signature (If Indicated): Date CC: Nelia Smith DO DISCHARGE INSTRUCTION Observed: 01/25/2018 Status: F Source: [facility] 10:25 PM [facility] REPOSITORY [facility] Medical Records Department [address] [place] [address] Discharge Instruction 01/25/182223 MR#: [id number] Acct: [id number] Name: LEYLA PERKINS Rep #: [id number] : 1945 72 From: Laura Alves MD [...] your Primary Care Provider. Call [facility] ([phone]) or report to the closest Emergency Room. Call 911 if necessary. 01/25/182224 <Electronically signed by Laura Alves MD> Date Laura Alves MD Cosigner Signature (If Indicated): Date CC: Nelia Smith DO Observed: 01/25/2018 Status: F Source: [facility] STOOL OCCULT BLOOD 8:15 PM [facility]OB REPOSITORY Order Date: 01/25/18 STOB iFOB Occult Blood Negative Performed By: #### M100.7900 #### [place], [address] CBC W/DIFF, AUTOMATED Collected: 01/25/2018 Status: F Source: [facility] 7:35 PM [facility] REPOSITORY TYPE CODE TESTS RESULT OUT OF RANGE REFERENCE UNITS LAB L100.1000 4.4-11.0 K/mm3 Normal WBC 7.3 LAB L100.1200 4.2-5.4 M/mm3 Normal RBC 4.81 LAB L100.1300 12.0-15.0 g/dl High HGB 15.2 LAB L100.1400 37-47 % Normal HCT 45.7 LAB L100.1500 81-99 fL Normal MCV 95.0 LAB L100.1600 27.0-32.0 pg Normal MCH 31.6 LAB L100.1700 32-36 g/gl Normal MCHC 33.3 LAB L100.1810 11.6-14.6 % Normal RDW CV 13.5 LAB L100.1820 35.1-43.9 fl High RDW SD 46.9 LAB L100.1900 150-450 K/mm3 Normal PLT 215 LAB L100.2000 6.2-12.0 fl Normal MPV 10.0 LAB L100.2100 47-70 % High NEUT% 75.2 LAB L100.2200 19-41 % Low LY% 17.6 LAB L100.2300 0-10 % Normal MONO% 6.0 LAB L100.2400 0-5 % Normal EO% 1.0 LAB L100.2500 0-1 % Normal BASO% 0.1 LAB L100.2550 0.0-0.9 % Normal IM GRAN % 0.100 Result Comment: IG% - Immature Granulocytes (promyelocytes, myelocytes and metamyelocytes) > 1% indicates that a LEFT SHIFT is Present. LAB L100.2620 2.0-7.7 X10 3/uL Normal Absolute Neut 5.5 LAB L100.2720 0.83-4.51 X10 3/ul Normal Absolute Lymph 1.29 Performed By: #### L100.0100 #### Laboratory [address] [place], [place], [address] PROTHROMBIN TIME W/INR Collected: 01/25/2018 Status: F Source: [facility] 7:35 PM [facility] REPOSITORY TYPE CODE TESTS RESULT OUT OF RANGE REFERENCE UNITS LAB L300.4150 11.7-14.9 SECONDS Normal PROTIME 14.9 LAB L300.4200 Normal INR 1.2 Performed By: #### L300.3900, L300.4310 #### Laboratory [address] [place], [place], [address] PARTIAL THROMBOPLAST Collected: 01/25/2018 Status: F Source: [facility] TIME 7:35 PM [facility] REPOSITORY TYPE CODE TESTS RESULT OUT OF RANGE REFERENCE UNITS LAB L300.4310 24.1-36.2 Seconds Normal PTT 27.6 Performed By: #### L300.3900, L300.4310 #### Laboratory [address] [place], [place], [address] BASIC METABOLIC Collected: 01/25/2018 Status: F Source: [facility] PROFILE (BMP) 7:35 PM [facility] REPOSITORY TYPE CODE TESTS RESULT OUT OF RANGE REFERENCE UNITS LAB L501.0100 74-106 mg/dL High GLU 118 Result Comment: Fasting Glucose result from 100 to 125 mg/dL suggests IMPAIRED HOMEOSTASIS per A.D.A. criteria. Please note revised GLUCOSE reference range effective 2017. LAB L501.1000 7-18 mg/dL Normal BUN 13 LAB L501.1100 0.55-1.02 mg/dL Normal CREAT,SERUM 0.77 Result Comment: The validity of the calculated GFR AND GFRAA in patients over 70 years has not been determined. Clinical correlation is essential. LAB L501.1110 >60 mL/min Normal EST GFR 78 Result Comment: Non- GFR Calc LAB L501.1115 >60 mL/min Normal EST GFR - AA 94 Result Comment: GFR Calc LAB L501.1255 ml/min Normal Estimated CRCL 44.41 LAB L501.1300 10-20 RATIO Normal BUN/CRE 16.9 LAB L501.2200 8.5-10 mg/dL Normal .1 CA 8.5 LAB L501.5300 136-14 mmol/L Normal 5 NA 140 LAB L501.5600 3.5-5. mmol/L Normal 1 K 3.6 LAB L501.5900 98-107 mmol/L Normal CL 107 LAB L501.6100 21.0-3 mmol/L Normal 2.0 CO2 24.0 LAB L501.6200 5-15 Normal GAP 9 Performed By: #### L500.2500 #### Laboratory [address] [place], [place], [address] ALLERGIES ALLERGIES DATE TYPE / CODE NAME / CODE REACTION SEVERITY SOURCE 01/25/2018 Drug oxycodone Nausea Unknown [place] Allergy/242136412(S HCl/Q791165168( [facility] NOMED CT) RXNORM) Hospital Repository 01/25/2018 Drug cimetidine Diarrhea Unknown [place] Allergy/313443902(S HCl/X443649631( [facility] NOM CT) RXNORM) Hospital Repository 01/25/2018 Drug acetaminophen/F Nausea Unknown [place] Allergy/870608534(S 003780380(RXNOR [facility] CT) M) Hospital Repository 01/25/2018 Drug cimetidine/F006 Diarrhea Unknown [place] Allergy/656428153(S 465014(RXNORM) [facility]) Hospital Repository 01/25/2018 Drug amoxicillin/F00 Vomiting Unknown [place] Allergy/836424408(S 0225059(RXNORM) [facility]) Hospital Repository 01/25/2018 Drug nickel/S7729843 Hives Unknown [place] Allergy/113786617(S 08(RXNORM) [facility]) Hospital Repository 01/25/2018 Miscellaneous STEROIDS Other Unknown [place] Allergy/081627469(S [facility]) Hospital Repository ENCOUNTERS ENCOUNTERS ADMIT/DISCHARGE ACCOUNT ADMITTING ENCOUNTER LOCATION SOURCE NUMBER CLASS 10/06/2018 [id number] Ambulatory [place] 2 [facility] ing:OPBI Repository 09/20/2018 [id number] Ambulatory [place] 1 [facility] ing:[facility]S Repository 09/10/2018 [id number] Ambulatory [place] 0 [facility] ing:MTLAB Repository 09/03/2018 28552 Ambulatory Building:[facility] Repository 01/25/2018/ [id number] Emergency [place] 8 8 [facility] ing:ED Repository PAYERS PAYERS ENCOUNTER GUARANTOR PAYER SUBSCRIBER SOURCE 10/06/2018 LEYLA Hurt Primary LEYLA Hurt [place] [id number] Insurance:MEDICARE DAVIDHIZARDOB: [facility] [id number] Number: Repository [address]Cat: 330 [id number] [phone] () Date:2018-09-03 10/06/2018 Secondary LEYLA Hurt [place] Insurance:ANTHEMPolic DAVIDHIZARDOB: Community y Number: [id number] Hospital [id number] Repository Date:1226-51-96LG [address] [place] [address]YV: 10/06/2018 Tertiary NOT GIVENUNK [place] Insurance:SELF PAY [facility] Number: Effective Repository Date:2018-09-03 09/20/2018 LEYLA Hurt Primary LEYLA Hurt [place] [id number] Insurance:MEDICARE DAVIDHIZARDOB: [facility] [id number] Number: Repository [address]Eua: 330 [id number] [phone] () Date:2018-09-09 09/20/2018 Secondary LEYLA Licha [place] Insurance:ANTHEMPolic DAVIDHIZARDOB: Community y Number: [id number] Hospital [id number] Repository Date:8925-89-88SI [id number] [place] [address]AF: 09/20/2018 Tertiary NOT GIVENUNK [place] Insurance:SELF PAY [facility] Number: Effective Repository Date:2018-09-09 09/10/2018 LEYLA Hurt Primary LEYLA Hurt [place] [id number] Insurance:MEDICARE DAVIDHIZARDOB: Community [place] PART A [facility] [id number] Number: Repository [address]Hav: [phone] [id number] [phone] (HP) Date:2018-09-10 09/10/2018 Secondary LEYLA M [place] Insurance:ANTHEMPolic DAVIDHIZARDOB: Community y Number: [id number] Hospital [id number] Repository Date:3822-54-75HR [address] [place] [address]AZ: 09/10/2018 Tertiary NOT GIVENUNK [place] Insurance:SELF PAY [facility] Number: Effective Repository Date:2018-09-10 09/03/2018 Leyla M Primary Leyla M OHIP Practices DavidhizarDOB: Insurance:MedicarePol DavidhizarDOB: Repository [id number] icy Number: [id number] [place] [id number] 0 [place], [place] Date:Plan Name:[place], [place] [address]Wxo: (085) [address], [address]Eq[address]: [place] [address]VE: (HP) (HP) [phone] () 09/03/2018 Secondary Leyla M OHIP Practices Insurance:[place]/Supp DavidhizarDOB: Repository [facility] Number: [id number] 0 [place] Date:0774-77-29[place], [place] Name:[facility] [address] [address]Imq: [phone], [place] [phone] (HP) [id number]: 01/25/2018 Leyla M Primary Leyla M [place] [id number] Insurance:MEDICARE DavidhizarDOB: [facility] PART A [facility] [id number], [place] Number: Repository [id number]: [phone] [id number] [phone] (HP) Date:2018-01-25 01/25/2018 Secondary Leyla Licha Baez Insurance:ANTHEMPolic [place]OB: Community y Number: [id number] Hospital [id number] Repository Date:8456-28-89[address], [place] [address]TR: 01/25/2018 Tertiary NOT GIVENUNK [place] Insurance:SELF PAY [facility]: Effective Repository Date:2018-01-25
== END ==
PROVIDERS: Family Provider Internal Medicine; PCP Internal Medicine
DX: I72.2 Aneurysm of renal artery (principal)
CPT/HCPCS: 36415; 82565; 84520

== ENCOUNTER → 2018-09-20 12:39 | Outpatient (CLI) | payer MEDICARE, BC, SELFPAY ==
--- NOTE | 2018-09-20 12:41 | CDU_ITS ---
Reason For Study: Carotid Occlusion Rt. Velocities/BP Lt. Velocities/BP Prox CCA 73/18 cm/sec. Prox CCA 77/17 cm/sec. Mid CCA 41/9 cm/sec. Mid CCA 65/12 cm/sec. Dist CCA 57/11 cm/sec. Dist CCA 49/12 cm/sec. Prox ICA 57/15 cm/sec. Prox ICA 57/11 cm/sec. Mid ICA 43/11 cm/sec. Mid ICA 68/19 cm/sec. Dist ICA 48/14 cm/sec. Dist ICA 66/18 cm/sec. Rt. ICA/CCA = 1.39. Lt. ICA/CCA = 1.05. Prox ECA 102/16 cm/sec. Prox ECA 105/14 cm/sec. Rt. Vert. 48/13 cm/sec. Lt. Vert. 45/10 cm/sec. Right Extracranial There is intimal thickening but no significant atherosclerotic plaque noted in the right common carotid artery. There is intimal thickening but no significant atherosclerotic plaque noted in the right internal carotid artery. There is intimal thickening but no significant atherosclerotic plaque noted in the right external carotid artery. Antegrade flow is noted in the right vertebral artery. Left Extracranial There is intimal thickening but no significant atherosclerotic plaque noted in the left common carotid artery. There is intimal thickening but no significant atherosclerotic plaque noted in the left internal carotid artery. There is heterogeneous, irregular atherosclerotic plaque noted in the left external carotid artery. Antegrade flow is noted in the left vertebral artery. Procedure Carotid Duplex [id number]. Exam performed in department. Interpretation Summary No hemodynamically significant plague or stenosis bilateral extracranial internal carotids with <50% stenosis bilaterally. Normal flow bilateral external carotids with minimal plague on the left Patent and antegrade vertebral arteries bilaterally Ordering Physician: Nelia Smith Referring Physician: Nelia Smith Performed By: Lorenza Almonte, RDCS, RVT
--- NOTE | 2018-09-20 13:13 | CT_ITS ---
STUDY: CTA CHEST REASON FOR EXAM: Female, 73 years old. Follow up thoracic aortic aneurysm. RADIATION DOSAGE (If Supplied By Facility): CTDIvol = ( 15.08 ) mGy, DLP = ( 387.92 ) mGycm TECHNIQUE: The examination was performed with the intravenous administration of 75 ml of Isovue 370 contrast material. Post-processing of the angiographic images was performed, with multiplanar reformation and 3D reconstruction. Individualized dose optimization techniques were used for this CT. COMPARISON: 08/24/2017 FINDINGS: There is a stable calcified granuloma in the right lower lobe. There are no new or suspicious pulmonary nodules. There are no pulmonary infiltrates or pleural effusions. There is no pneumothorax. There is no pulmonary embolus. Again noted is a patent endograft in the descending thoracic aorta. There is no evidence of endoleak. There is stable aneurysmal dilatation of the descending aorta, measuring up to 4.1 x 3.8 cm. There is stable mural thrombus within the lumen of the aneurysm. There is no evidence of thoracic aortic dissection. The great vessels are patent and normal in caliber. The heart is normal in size. There is no pericardial effusion. There are calcified mediastinal and hilar lymph nodes, consistent with prior granulomatous disease. Images through the upper abdomen demonstrate hepatic and splenic granulomata. There are no destructive osseous lesions. 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 No evidence of pulmonary embolus. Evidence of prior granulomatous disease. Electronically Signed: Mario Ohara, at 14:50 EST Tel , Service support ,
== END ==
PROVIDERS: Family Provider Internal Medicine; PCP Internal Medicine; Visit Provider Internal Medicine
DX: I65.23 Occlusion and stenosis of bilateral carotid arteries (principal); I71.2 Thoracic aortic aneurysm, without rupture
CPT/HCPCS: 71275; 93880; Q9967

== ENCOUNTER → 2018-10-06 12:18 | Outpatient (CLI) | payer MEDICARE, BC, SELFPAY ==
--- NOTE | 2018-10-06 12:28 | BI_ITS ---
MAMMOGRAPHY - BILATERAL SCREENING REASON FOR EXAM: Female, 73 years old. Routine annual screening examination. PERTINENT HISTORY: Mother with breast cancer. Aunt with breast cancer. Prior bilateral excisional breast biopsies. TECHNIQUE: Digital bilateral breast katelyn (3D mammographic acquisition) in the CC and MLO projections. 2-D mediolateral oblique (MLO) and craniocaudad (CC) views of both breasts were obtained. CAD: Full Field Digital Mammography with Computer Added Detection was performed. COMPARISON: Comparison is made with prior study dated September 22, 2017 and August 15, 2016. FINDINGS: Breast Composition: There are scattered areas of fibroglandular density. There are no dominant masses or suspicious calcifications. No other significant abnormalities are identified. There has been no significant change since the prior study. BI/SCREENING MAMM (CAD), BILAT IMPRESSION: Stable bilateral screening mammogram. Yearly follow-up mammogram recommended. (A) ASSESSMENT CATEGORY: BIRADS Category 1: Negative. A letter regarding these results will be sent to the patient by the facility within 30 days. Approximately 10% of breast cancers are not detected by mammography. A normal mammogram should not delay biopsy of a clinically suspicious abnormality. [id number] Electronically Signed: Lazaro Abrams MD at 14:09 EST Tel [phone], Service support ,
== END ==
PROVIDERS: Family Provider Internal Medicine; PCP Internal Medicine; Visit Provider Internal Medicine
DX: Z12.31 Encounter for screening mammogram for malignant neoplasm of breast (principal)
CPT/HCPCS: 77063; 77067

== ENCOUNTER → 2019-10-12 08:13 | Outpatient (CLI) | payer MEDICARE, BC, SELFPAY ==
--- NOTE | 2019-10-12 08:15 | BI_ITS ---
MAMMOGRAPHY - BILATERAL SCREENING REASON FOR EXAM: 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 Routine annual screening examination. PERTINENT HISTORY: Aunt with breast cancer. History of remote bilateral excisional breast biopsies. TECHNIQUE: Digital bilateral breast claudia (3D mammographic acquisition) in the CC and MLO projections. 2-D mediolateral oblique (MLO) and craniocaudad (CC) views of both breasts were obtained. CAD: Full Field Digital Mammography with Computer Added Detection was performed. COMPARISON: Comparison is made with prior examination dated October 06, 2018 and September 22, 2017. FINDINGS: Breast Composition: There are scattered areas of fibroglandular density. There are no dominant masses or suspicious calcifications. No other significant abnormalities are identified. There has been no significant change since the prior study. BI/SCREEN MAMM (CAD) W/CLAUDIA BILAT IMPRESSION: Stable bilateral screening mammogram. Yearly follow-up mammogram recommended. (A) ASSESSMENT CATEGORY: BIRADS Category 1: Negative. A letter regarding these results will be sent to the patient by the facility within 30 days. Approximately 10% of breast cancers are not detected by mammography. A normal mammogram should not delay biopsy of a clinically suspicious abnormality. [id number] Electronically Signed: Lazaro Abrams, at 9:41 EST , Service support ,
--- NOTE | 2019-10-12 08:51 | BD_ITS ---
STUDY: DUAL ENERGY X-RAY ABSORPTIOMETRY / DXA REASON FOR EXAM: 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 COMPARISON: Comparison is made with prior study dated September 22, 2017. FINDINGS: Lumbar Spine (L1-L4): g/cm2 (1.255) / T-score (0.5) / Z-score (2.2) Findings are suggestive of normal bone density with a low fracture risk. Left Femur Total: g/cm2 (1.042) / T-score (0.3) / Z-score (2.1) Left Femoral Neck: g/cm2 (0.954) / T-score (-0.6) / Z-score (1.4) Right Femur Total: g/cm2 (0.962) / T-score (-0.4) / Z-score (1.4) Right Femoral Neck: g/cm2 (0.886) / T-score (-1.1) / Z-score (0.9) The T-Scores on the most recent prior examination were: Lumbar Spine (L1-L4): There has been improvement of bone density since the previous examination. Left Femur Total: which represents an improvement of 0.6%. Right Femur Total: which represents a worsening of 6.1%. BD/Dexa Bone Density Study IMPRESSION: The patient is considered osteopenic as outlined below according to World Kian Organization (WHO) criteria with a low fracture risk. There has been worsening of bone density since the previous examination. Reference Information: The T-score is the number of standard deviations above or below the standard which is normal for young adults at their peak bone mineral density. The World Health Organization (WHO) interprets the T-scores as follows: Above -1 Normal bone density Between -1 and -2.5 Osteopenia Equal to / or below -2.5 Osteoporosis As a practical clinical guideline, osteopenia may be graded as follows: Mild -1 through -1.5 Moderate -1.6 through -2.0 Severe -2.1 through -2.4 The Z-score is the number of standard deviations above or below age-matched controls. A Z-score of less than -1.5 would be considered abnormal. References: 1. NIH Osteoporosis and Related Bone Diseases http://www.osteo.org 2. International Society for Clinical Densitometry http://www.iscd.org 3. National Osteoporosis Foundation http://www.nof.org Electronically Signed: Lazaro Abrams, at 12:31 EST , Service support ,
== END ==
PROVIDERS: Family Provider Internal Medicine; PCP Internal Medicine; Referring Provider Internal Medicine; Visit Provider Internal Medicine
DX: Z12.31 Encounter for screening mammogram for malignant neoplasm of breast (principal); Z78.0 Asymptomatic menopausal state
CPT/HCPCS: 77063; 77067; 77080

== ENCOUNTER → 2019-10-26 13:02 | Outpatient (CLI) | payer MEDICARE, BC, SELFPAY ==
[2019-10-19 09:30] LABS: Creatinine, Serum 0.92 mg/dL (0.55-1.02); EST Glomerular Filtration Rate 63 mL/min (>60); Est Glom Filt Rate - Afr Amer 76 mL/min (>60)
--- NOTE | 2019-10-26 13:08 | CT_ITS ---
STUDY: CTA CHEST REASON FOR EXAM: 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 ANEURYSM REPAIR F/U RADIATION DOSAGE (If Supplied By Facility): CTDIvol = ( 11.71 ) mGy, DLP = ( 537.09 ) mGycm TECHNIQUE: The examination was performed with the intravenous administration of 100ml isovue 370. Post-processing of the angiographic images was performed, with multiplanar reformation and 3D reconstruction. Individualized dose optimization techniques were used for this CT. COMPARISON: Comparison is made with prior examination of September 20, 2018. FINDINGS: Inhomogeneous appearance of the thyroid with several hypodense nodules more prominent in the right lobe. 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 This is unchanged. Stable small benign-appearing bilateral axillary lymph nodes. Normal enhancement of the main pulmonary artery and right and left pulmonary arteries. Normal enhancement of the bilateral peripheral pulmonary arteries. There is no demonstrated pulmonary embolism. The patient is status post covered stent placement in the proximal thoracic aorta. Persistent dilatation of the aorta measuring 3.9 cm in transverse dimension. Mural thrombus is seen along its posterior part. This extends into the upper abdominal aorta just distal to the diaphragmatic hiatus. There has been no change. There is no demonstrated aortic dissection. Normal heart and pericardium. Normal mediastinum. There are calcified right hilar lymph nodes. Normal visualized trachea and bronchi. The lungs are well expanded. Normal pulmonary parenchyma. Normal pleura. Normal chest wall structures. There are degenerative changes of thoracic spine. Stable hepatic and splenic calcified granulomas. CT/CTA Chest W/WO Contrast IMPRESSION: Stable examination of the endograft in the descending thoracic aorta. Stable size of the aneurysmal dilatation of the descending thoracic aorta. Electronically Signed: Lazaro Abrams, at 15:04 EST , Service support ,
== END ==
LOC: CT 13:02
PROVIDERS: PCP Internal Medicine
DX: I71.2 Thoracic aortic aneurysm, without rupture (principal)
CPT/HCPCS: 36415; 71275; 82565; Q9967

== ENCOUNTER → 2020-05-17 | Outpatient (CLI) | payer MEDICARE, BC, SELFPAY ==
[2020-05-17 12:40] LABS: Absolute Lymphocyte Count 2.49 X10^3/uL (0.83-4.51); Absolute Neutrophil Count 3.4 X10^3/uL (2.0-7.7); Basophil% 1.5 % (0-1); Eosinophils% 4.4 % (0-5); Hematocrit 44.9 % (37-47); Hemoglobin 14.8 g/dL (12.0-15.0); Lymphocyte # 2.49 X10^3/ul (4.0); Lymphocyte % 36.6 % (19-41); Mean Corpuscular Hgb 31.6 pg (27.0-32.0); Mean Corpuscular Volume 95.9 fL (81-99); Mean Platelet Vol. 10.8 fl (6.2-12.0); Monocyte# 0.53 X10^3/uL; Monocyte% 7.8 % (0-10); NRBC Flagged by Analyzer 0 % (0-5); Neutrophil # 3.35 X10^3/uL (2.7-7.7); Neutrophil % 49.3 % (47-70); Platelet Count 288 K/mm3 (150-450); RBC Distribution Width CV 13.4 % (11.6-14.6); RBC Distribution Width SD 47.4 fl (35.1-43.9); Red Blood Count 4.68 M/mm3 (4.2-5.4); White Blood Count 6.8 K/mm3 (4.4-11.0)
[2020-05-17 12:55] LABS: PTHIN 91.9 pg/mL (18.4-80.1)
[2020-05-17 12:59] LABS: T3 Total - Triiodothyronine 1.34 ng/mL (0.6-1.81)
[2020-05-17 13:09] LABS: AST(SGOT) 12 U/L (15-37); Alanine Aminotransfer ALT/SGPT 19 U/L (13-56); Albumin, Serum 3.6 g/dL (3.2-5.0); Alkaline Phosphatase 57 U/L (45-117); Anion Gap 4 (5-15); BUN 13 mg/dL (7-18); Chloride 109 mmol/L (98-107); Creatinine, Serum 0.76 mg/dL (0.55-1.02); EST Glomerular Filtration Rate 78 mL/min (>60); Est Glom Filt Rate - Afr Amer 95 mL/min (>60); Ferritin 106 ng/mL (8-252); Globulin 3.7 g/dL (2.2-4.2); Glucose 100 mg/dL (74-106); Potassium 3.8 mmol/L (3.5-5.1); Protein, Total 7.3 g/dL (6.4-8.2); Sodium Level 142 mmol/L (136-145); T4 Free Direct 1.08 ng/dL (0.76-1.46); Thyroid Stim Hormone (TSH) 2.24 uIU/mL (0.358-3.74)
[2020-05-18 13:54] LABS: Thyroid Peroxidase AB < 9 IU/mL (0-34)
== END | disposition home or self-care (01) ==
LOC: MTLAB 09:26
PROVIDERS: PCP Internal Medicine; Referring Provider Dermatology Pediatric Dermatology; Visit Provider Dermatology Pediatric Dermatology
DX: D64.9 Anemia, unspecified (principal)
CPT/HCPCS: 36415; 80053; 82728; 83970; 84439; 84443; 84480; 85025; 86038; 86376

== ENCOUNTER 2020-11-15 11:44 | Outpatient (RCR) | payer MEDICARE, BC, SELFPAY | END 2020-11-15 23:59 | LOC: IMMUN 11:44 | PROVIDERS: PCP Internal Medicine; Visit Provider Family Medicine | DX: Z23 Encounter for immunization (principal) | CPT/HCPCS: 0011A; 0012A; 91301 ==

== ENCOUNTER → 2021-04-12 10:10 | Outpatient (CLI) | payer MEDICARE, BC, SELFPAY ==
--- NOTE | 2021-04-12 10:13 | BI_ITS ---
MAMMOGRAPHY - BILATERAL SCREENING REASON FOR EXAM: Female, 75 years old. Routine annual screening examination. PERTINENT HISTORY: Mother with breast cancer. Aunt with breast cancer. History of bilateral excisional breast biopsies. TECHNIQUE: Digital bilateral breast claudia (3D mammographic acquisition) in the CC and MLO projections. 2-D mediolateral oblique (MLO) and craniocaudad (CC) views of both breasts were obtained. CAD: Full Field Digital Mammography with Computer Added Detection was performed. COMPARISON: Comparison is made with prior study dated 10/12/2019 and 10/06/2018. FINDINGS: Breast Composition: There are scattered areas of fibroglandular density. There are no dominant masses or suspicious calcifications. Stable benign-appearing bilateral axillary lymph nodes. No other significant abnormalities are identified. There has been no significant change since the prior study. BI/SCRN MAMM (CAD)W/CLAUDIA BILAT IMPRESSION: Stable bilateral screening mammogram. Yearly follow-up mammogram recommended. (A) ASSESSMENT CATEGORY: BIRADS Category 2: Benign. A letter regarding these results will be sent to the patient by the facility within 30 days. Approximately 10% of breast cancers are not detected by mammography. A normal mammogram should not delay biopsy of a clinically suspicious abnormality. [id number] Electronically Signed: Lazaro Abrams MD at 11:50 EDT , Service support ,
== END ==
PROVIDERS: PCP Internal Medicine; Referring Provider Internal Medicine; Visit Provider Internal Medicine
DX: Z12.31 Encounter for screening mammogram for malignant neoplasm of breast (principal)
CPT/HCPCS: 77063; 77067

== ENCOUNTER → 2021-08-01 08:58 | Outpatient (CLI) | payer MEDICARE, BC, SELFPAY ==
[2021-08-01 12:13] LABS: PTHIN 84.4 pg/mL (18.4-80.1)
== END ==
PROVIDERS: PCP Internal Medicine; Referring Provider Dermatology Pediatric Dermatology; Visit Provider Dermatology Pediatric Dermatology
DX: D64.9 Anemia, unspecified (principal)
CPT/HCPCS: 36415; 82330; 83970

== ENCOUNTER → 2022-01-17 | Outpatient (CLI) | payer MEDICARE, BC, SELFPAY ==
[2022-01-17 12:48] LABS: Phosphorus 3.6 mg/dL (2.5-4.9)
== END | disposition home or self-care (01) ==
LOC: BIMLAB 10:57
PROVIDERS: PCP Internal Medicine; Referring Provider Internal Medicine Endocrinology, Diabetes & Metabolism; Visit Provider Internal Medicine Endocrinology, Diabetes & Metabolism
DX: E21.3 Hyperparathyroidism, unspecified (principal); E55.9 Vitamin D deficiency, unspecified
CPT/HCPCS: 36415; 82306; 84100

== ENCOUNTER → 2022-02-03 | Outpatient (CLI) | payer MEDICARE, BC, SELFPAY ==
[2022-02-03 07:49] LABS: Mucous, Urine 0 SEEN /hpf (<or=2+); Red Blood Cells-Urine 0 SEEN /hpf (0-5)
[2022-02-03 10:26] LABS: Absolute Lymphocyte Count 2.05 X10^3/uL (0.83-4.51); Absolute Neutrophil Count 3.3 X10^3/uL (2.0-7.7); Basophil# 0.08 X10^3/uL; Basophil% 1.3 % (0-1); Eosinophil# 0.21 X10^3/uL; Eosinophils% 3.4 % (0-5); Hematocrit 43.4 % (37-47); Hemoglobin 13.9 g/dL (12.0-15.0); Lymphocyte # 2.05 X10^3/ul (0.83-4.51); Lymphocyte % 33.3 % (19-41); Mean Corpuscular Hgb 30.8 pg (27.0-32.0); Mean Corpuscular Volume 96.2 fL (81-99); Mean Platelet Vol. 12.8 fl (6.2-12.0); Monocyte% 8.1 % (0-10); NRBC Flagged by Analyzer 0 % (0-5); Neutrophil # 3.31 X10^3/uL (2.7-7.7); Neutrophil % 53.7 % (47-70); Platelet Count 149 K/mm3 (150-450); RBC Distribution Width CV 13.2 % (11.6-14.6); RBC Distribution Width SD 47.2 fl (35.1-43.9); Red Blood Count 4.51 M/mm3 (4.2-5.4); White Blood Count 6.2 K/mm3 (4.4-11.0)
[2022-02-03 10:39] LABS: AST(SGOT) 16 U/L (15-37); Alanine Aminotransfer ALT/SGPT 25 U/L (13-56); Albumin, Serum 3.5 g/dL (3.2-5.0); Alkaline Phosphatase 51 U/L (45-117); Anion Gap 8 (5-15); BUN 13 mg/dL (7-18); BUN/Creat Ratio 17.5 RATIO (10-20); Calcium,Total 8.8 mg/dL (8.5-10.1); Chloride 107 mmol/L (98-107); Cholesterol 161 mg/dL (200); Creatinine, Serum 0.74 mg/dL (0.55-1.02); EST Glomerular Filtration Rate 80 mL/min (>60); Est Glom Filt Rate - Afr Amer 97 mL/min (>60); Globulin 3.6 g/dL (2.2-4.2); Glucose 101 mg/dL (74-106); High Density Lipoprotein 47 mg/dL; Potassium 3.7 mmol/L (3.5-5.1); Protein, Total 7.1 g/dL (6.4-8.2); Sodium Level 142 mmol/L (136-145); Triglycerides 96 mg/dL; Very Low Density Lipoprotein 19 mg/dL (5-40)
[2022-02-03 10:45] LABS: Color, Urine Yellow (Yellow); Glucose, Dipstick Normal (Normal); Ketone-Dipstick Negative (Negative); Leukocyte Esterase-Dipstick 100 /ul (Negative); Nitrite-Dipstick Negative (Negative); Occult Blood-Urine 50 /ul (Negative); Protein-Dipstick Negative (Negative); Urine Bilirubin Dipstick Negative (Negative); Urine Clarity Clear (Clear); Urine Urobilinogen Normal (Normal)
[2022-02-03 10:51] LABS: Microalbumin,Random Urine 20.1 mg/L (NO RANGE EST.); Microalbumin:Creatinine Ratio 41.3 mg/g CRE (<30 mg/g CRE)
[2022-02-03 10:52] LABS: Bacteria 1+ /hpf (None Seen); Squamous Epithelial Cells - UA 0-5 SEEN /hpf (5-10); White Blood Cells 0-5 SEEN /hpf (0-5)
== END | disposition home or self-care (01) ==
LOC: MTLAB 07:45
PROVIDERS: PCP Internal Medicine; Referring Provider Internal Medicine; Visit Provider Internal Medicine
DX: I10 Essential (primary) hypertension (principal); E55.9 Vitamin D deficiency, unspecified
CPT/HCPCS: 36415; 80053; 80061; 81001; 82043; 82306; 82570; 85025

== ENCOUNTER → 2022-03-03 | Outpatient (CLI) | payer MEDICARE, BC, SELFPAY ==
[2022-03-03 16:04] LABS: Calcium,Total 9.2 mg/dL (8.5-10.1)
[2022-03-03 16:18] LABS: PTHIN 81.8 pg/mL (18.4-80.1)
[2022-03-03 16:39] LABS: Vitamin D,25 Hydroxy 65.3 ng/mL
== END | disposition home or self-care (01) ==
LOC: MTLAB 13:33
PROVIDERS: PCP Internal Medicine; Referring Provider Internal Medicine Endocrinology, Diabetes & Metabolism; Visit Provider Internal Medicine Endocrinology, Diabetes & Metabolism
DX: E55.9 Vitamin D deficiency, unspecified (principal); E21.3 Hyperparathyroidism, unspecified
CPT/HCPCS: 36415; 82306; 82310; 83970

== ENCOUNTER → 2022-03-27 | Outpatient (CLI) | payer MEDICARE, BC, SELFPAY ==
--- NOTE | 2022-03-27 15:38 | CT_ITS ---
STUDY: CT ABDOMEN AND PELVIS WITH AND WITHOUT CONTRAST REASON FOR EXAM: Female, 76 years old. Microscopic hematuria. RADIATION DOSAGE (If Supplied By Facility): CTDIvol = ( 14.96 ) mGy, DLP = ( 1837.33 ) mGycm TECHNIQUE: Transaxial images were obtained from the dome of the diaphragm to the symphysis pubis with oral contrast. 100 mL of ISOVUE-300. was administered. Sagittal and coronal images were reconstructed. Individualized dose optimization techniques were used for this CT. COMPARISON: 12/06/2014. FINDINGS: Calcified granuloma in the right lung base. There is no acute infiltrate or mass. The visualized portions of the heart are within normal limits. There is a stent within prominent distal thoracic aorta. Normal liver. Normal gallbladder and extrahepatic biliary system. There are multiple benign calcified granulomata of the spleen. Normal pancreas. Normal bilateral adrenal glands. The cyst in the upper pole of an otherwise normal right kidney. Normal left kidney. Normal visualized ureters. There is poor distention of the stomach with evidence of wall thickening. Normal small intestine. Normal colon. There is non-visualization of the appendix. Atherosclerotic changes and ectasia of the abdominal aorta without aneurysm. Normal inferior vena cava. Normal retroperitoneum. Normal urinary bladder. Unremarkable vaginal cuff. No pelvic lymphadenopathy. No free air or free fluid is seen within the peritoneal cavity Normal abdominal wall. Stable degenerative changes. CT/CT Abd/Pelvis W/WO Contrast IMPRESSION: 1. Question gastritis. 2. Resolution of the colitis seen on the previous study. 3. No other major interval change. Electronically Signed: Slick Byrd DO at 22:57 EDT ,
[2022-03-27 16:06] LABS: CREATININE FINGERSTICK < 0.9 mg/dL (0.55-1.02); EGFR FINGERSTICK > 60.0000 mL/min (>60)
== END | disposition home or self-care (01) ==
LOC: CT 15:35
PROVIDERS: PCP Internal Medicine; Visit Provider Internal Medicine
DX: N28.1 Cyst of kidney, acquired (principal); I77.811 Abdominal aortic ectasia; R14.0 Abdominal distension (gaseous); R31.29 Other microscopic hematuria
CPT/HCPCS: 74178; Q9967

== ENCOUNTER → 2022-04-10 | Outpatient (CLI) | payer MEDICARE, BC, SELFPAY ==
--- NOTE | 2022-04-10 12:07 | BI_ITS ---
MAMMOGRAPHY - BILATERAL SCREENING REASON FOR EXAM: Female, 76 years old. Routine annual screening examination. PERTINENT HISTORY: Mother with breast cancer. Aunt with breast cancer. Remote bilateral excisional breast biopsies. TECHNIQUE: Digital bilateral breast claudia (3D mammographic acquisition) in the CC and MLO projections. 2-D mediolateral oblique (MLO) and craniocaudad (CC) views of both breasts were obtained. CAD: Full Field Digital Mammography with Computer Added Detection was performed. COMPARISON: Comparison is made with prior study dated 04/12/2021 and 10/12/2019. FINDINGS: Breast Composition: There are scattered areas of fibroglandular density. There are no dominant masses or suspicious calcifications. Stable bilateral microcalcifications. Stable small benign-appearing bilateral axillary lymph nodes. No other significant abnormalities are identified. There has been no significant change since the prior study. BI/SCRN MAMM (CAD)W/CLAUDIA BILAT IMPRESSION: Stable bilateral screening mammogram. Yearly follow-up mammogram recommended. (A) ASSESSMENT CATEGORY: BIRADS Category 2: Benign. A letter regarding these results will be sent to the patient by the facility within 30 days. Approximately 10% of breast cancers are not detected by mammography. A normal mammogram should not delay biopsy of a clinically suspicious abnormality. [id number] Electronically Signed: Lazaro Abrams MD at 13:18 EDT ,
--- NOTE | 2022-04-10 12:14 | BD_ITS ---
STUDY: DUAL ENERGY X-RAY ABSORPTIOMETRY / DXA REASON FOR EXAM: Female, 76 years old. Z780. Patient is postmenopausal. TECHNIQUE: Bone Mineral Density (BMD) measurements of lumbar spine and bilateral hips were obtained. COMPARISON: Comparison is made with prior study dated 10/12/2019. FINDINGS: Lumbar Spine (L1-L4): g/cm2 (1.015) / T-score (-0.6) / Z-score (2.1) Findings are suggestive of normal bone density with a low fracture risk. Left Femur Total: g/cm2 (0.928) / T-score (-0.1) / Z-score (1.9) Left Femoral Neck: g/cm2 (0.807) / T-score (-0.4) / Z-score (1.9) Right Femur Total: g/cm2 (0.919) / T-score (-0.2) / Z-score (1.8) Right Femoral Neck: g/cm2 (0.785) / T-score (-0.6) / Z-score (1.7) The T-Scores on the most recent prior examination were: Lumbar Spine (L1-L4): There has been worsening of bone density since the previous examination. Left Femur Total: which represents a worsening of 4.8%. Right Femur Total: which represents an improvement of 2.4%. BD/Dexa Bone Density Study IMPRESSION: The patient is considered normal as outlined below according to World K[employer] Organization (WHO) criteria with a low fracture risk. There has been worsening of bone density since the previous examination. Reference Information: The T-score is the number of standard deviations above or below the standard which is normal for young adults at their peak bone mineral density. The World Health Organization (WHO) interprets the T-scores as follows: Above -1 Normal bone density Between -1 and -2.5 Osteopenia Equal to / or below -2.5 Osteoporosis As a practical clinical guideline, osteopenia may be graded as follows: Mild -1 through -1.5 Moderate -1.6 through -2.0 Severe -2.1 through -2.4 The Z-score is the number of standard deviations above or below age-matched controls. A Z-score of less than -1.5 would be considered abnormal. References: 1. NIH Osteoporosis and Related Bone Diseases www osteo.org 2. International Society for Clinical Densitometry www iscd.org 3. National Osteoporosis Foundation www nof.org Electronically Signed: Lazaro Abrams MD at 8:12 EDT ,
== END | disposition home or self-care (01) ==
LOC: OPBD 12:05
PROVIDERS: PCP Internal Medicine; Visit Provider Internal Medicine
DX: Z12.31 Encounter for screening mammogram for malignant neoplasm of breast (principal); M85.80 Other specified disorders of bone density and structure, unspecified site; Z80.3 Family history of malignant neoplasm of breast; Z78.0 Asymptomatic menopausal state
CPT/HCPCS: 77063; 77067; 77080

== ENCOUNTER → 2023-04-07 | Outpatient (CLI) | payer MEDICARE, BC, SELFPAY ==
[2023-04-07 07:39] LABS: Mucous, Urine 0 SEEN /hpf (<or=2+)
[2023-04-07 10:36] LABS: Color, Urine Yellow (Yellow); Glucose, Dipstick Normal (Normal); Ketone-Dipstick Negative (Negative); Leukocyte Esterase-Dipstick 100 /ul (Negative); Nitrite-Dipstick Negative (Negative); Occult Blood-Urine 150 /ul (Negative); Protein-Dipstick Negative (Negative); Specific Gravity, Urine 1.015 (1.002-1.030); Urine Bilirubin Dipstick Negative (Negative); Urine Clarity Clear (Clear); Urine Urobilinogen Normal (Normal)
[2023-04-07 10:43] LABS: Bacteria RARE /hpf (None Seen); Red Blood Cells-Urine 0-5 SEEN /hpf (0-5); Squamous Epithelial Cells - UA 0-5 SEEN /hpf (5-10); White Blood Cells 0-5 SEEN /hpf (0-5)
[2023-04-07 10:50] LABS: Absolute Lymphocyte Count 1.77 X10^3/uL (0.83-4.51); Absolute Neutrophil Count 2.9 X10^3/uL (2.0-7.7); Basophil# 0.06 X10^3/uL; Basophil% 1.1 % (0-1); Eosinophils% 3.7 % (0-5); Hematocrit 42.6 % (37-47); Hemoglobin 13.5 g/dL (12.0-15.0); Lymphocyte # 1.77 X10^3/ul (0.83-4.51); Mean Corp Hgb Conc 31.7 g/dL (32-36); Mean Corpuscular Hgb 29.5 pg (27.0-32.0); Monocyte# 0.47 X10^3/uL; Monocyte% 8.8 % (0-10); NRBC Flagged by Analyzer 0 % (0-5); Neutrophil # 2.86 X10^3/uL (2.7-7.7); Neutrophil % 53.2 % (47-70); POSITIVE COUNT YES; Red Blood Count 4.58 M/mm3 (4.2-5.4); White Blood Count 5.4 K/mm3 (4.4-11.0)
[2023-04-07 11:09] LABS: ALB/GLOB Ratio 0.8 RATIO (0.9-2.4); AST(SGOT) 14 U/L (15-37); Alanine Aminotransfer ALT/SGPT 17 U/L (13-56); Albumin, Serum 3.2 g/dL (3.2-5.0); Alkaline Phosphatase 61 U/L (45-117); Anion Gap 5 (5-15); BUN 16 mg/dL (7-18); BUN/Creat Ratio 22.8 RATIO (10-20); Calcium,Total 8.9 mg/dL (8.5-10.1); Chloride 107 mmol/L (98-107); Cholesterol 156 mg/dL (200); EST Glomerular Filtration Rate 85 mL/min (>60); Est Glom Filt Rate - Afr Amer 103 mL/min (>60); Globulin 3.8 g/dL (2.2-4.2); Glucose 91 mg/dL (74-106); High Density Lipoprotein 44 mg/dL; Potassium 3.5 mmol/L (3.5-5.1); Sodium Level 141 mmol/L (136-145); Thyroid Stim Hormone (TSH) 2.47 uIU/mL (0.358-3.74); Triglycerides 72 mg/dL; Very Low Density Lipoprotein 14 mg/dL (5-40)
[2023-04-07 11:10] LABS: Differential Comment SCANNED; Differential Indicated SCAN CRITERIA MET; Platelet Estimate ADEQUATE (ADEQ)
[2023-04-07 11:29] LABS: Hepatitis C Antibody Non-Reactive (Nonreactive); Vitamin D,25 Hydroxy 62.7 ng/mL
[2023-04-07 16:52] LABS: Microalbumin,Random Urine 18.5 mg/L (NO RANGE EST.); Microalbumin:Creatinine Ratio 19.9 mg/g CRE (<30 mg/g CRE)
== END | disposition home or self-care (01) ==
LOC: MTLAB 07:32
PROVIDERS: PCP Internal Medicine; Referring Provider Internal Medicine; Visit Provider Internal Medicine
DX: Z11.59 Encounter for screening for other viral diseases (principal); I10 Essential (primary) hypertension; E55.9 Vitamin D deficiency, unspecified; R41.3 Other amnesia
CPT/HCPCS: 36415; 80053; 80061; 81001; 82043; 82306; 82570; 84443; 85025; 86803

== ENCOUNTER → 2023-04-13 | Outpatient (CLI) | payer MEDICARE, BC, SELFPAY ==
--- NOTE | 2023-04-13 10:06 | BI_ITS ---
MAMMOGRAPHY - BILATERAL SCREENING 3-D TOMOSYNTHESIS REASON FOR EXAM: Female, 77 years old. Routine screening PERTINENT HISTORY: Mother and aunt with breast cancer.. TECHNIQUE: 2-D mammograms and 3-D Tomosynthesis of the breast (s) were performed. CAD was performed. COMPARISON: 04/12/2021 FINDINGS: The breast composition is composed of scattered fibroglandular density. Scattered benign punctate calcifications are seen. No dense spiculated masses or suspicious microcalcifications are identified. No architectural distortion is identified. There is no skin thickening or retraction. There has been no significant change since the prior study. BI/SCRN MAMM (CAD)W/CLAUDIA BILAT IMPRESSION: No mammographic signs of malignancy. Routine yearly mammograms recommended. ASSESSMENT CATEGORY: BIRADS Category 2: Benign. A letter regarding these results will be sent to the patient by the facility within 30 days. FOLLOW UP RECOMMENDATION: Yearly follow up mammogram recommended. (A) Approximately 10% of breast cancers are not detected by mammography. A normal mammogram should not delay biopsy of a clinically suspicious abnormality. Electronically Signed: Tobias Beverly MD at 11:13 EDT ,
--- NOTE | 2023-04-13 10:32 | CDU_ITS ---
Reason For Study: Carotid occlusion, bilateral Rt. Velocities/BP Lt. Velocities/BP Prox CCA 76.8/16.3 cm/sec. Prox CCA 75.1/14.6 cm/sec. Mid CCA 74.9/13.5 cm/sec. Mid CCA 52/11.3 cm/sec. Dist CCA 71.1/15.4 cm/sec. Dist CCA 47.6/11.3 cm/sec. Prox ICA 63/12.4 cm/sec. Prox ICA 50.9/12.4 cm/sec. Mid ICA 63/15.7 cm/sec. Mid ICA 46.5/13.5 cm/sec. Dist ICA 69.6/16.8 cm/sec. Dist ICA 54.2/15.7 cm/sec. Rt. ICA/CCA = 0.93. Lt. ICA/CCA = 1.04. Prox ECA 101.1/6.5 cm/sec. Prox ECA 83.9/8 cm/sec. Rt. Vert. 60.8/12.4 cm/sec. Lt. Vert. 49.8/12.4 cm/sec. Right Extracranial There is homogeneous, smooth atherosclerotic plaque noted in the right common carotid artery. There is intimal thickening but no significant atherosclerotic plaque noted in the right internal carotid artery. There is intimal thickening but no significant atherosclerotic plaque noted in the right external carotid artery. Antegrade flow is noted in the right vertebral artery. Vascularized structure noted within thyroid that measures 1.42 x 1.57 x 2.25 cm. Left Extracranial There is homogeneous, smooth atherosclerotic plaque noted in the left common carotid artery. There is intimal thickening but no significant atherosclerotic plaque noted in the left internal carotid artery. There is heterogeneous, irregular atherosclerotic plaque noted in the left external carotid artery. Antegrade flow is noted in the left vertebral artery. VL/Carotid Duplex Ultrasound Interpretation Summary Right thyroid solid cystic 2.25 by 1.42 x 1.57 cm nodule Intimal thickening of the proximal right internal carotid artery with less than 50% stenosis Less than 50% stenosis right external carotid artery Intimal thickening at the proximal left internal carotid artery with less than 50% stenosis Less than 50% stenosis left external carotid artery Patent antegrade vertebral arteries bilaterally No change in the carotid arteries bilaterally from the previous examination of September 20, 2018 Ordering Physician: Nelia Smith Referring Physician: Nelia Smith Performed By: Larissa Lew RVT
== END | disposition home or self-care (01) ==
LOC: OPBI 10:05
PROVIDERS: PCP Internal Medicine; Referring Provider Internal Medicine; Visit Provider Internal Medicine
DX: Z12.31 Encounter for screening mammogram for malignant neoplasm of breast (principal); Z80.3 Family history of malignant neoplasm of breast; I65.23 Occlusion and stenosis of bilateral carotid arteries
CPT/HCPCS: 77063; 77067; 93880

== ENCOUNTER → 2023-05-01 | Outpatient (CLI) | payer MEDICARE, BC, SELFPAY ==
--- NOTE | 2023-05-01 15:13 | US_ITS ---
STUDY: THYROID ULTRASOUND REASON FOR EXAM: Female, 77 years old. thyroid nodule TECHNIQUE: Ultrasound evaluation of the thyroid was performed with real-time and static ferreira-scale imaging. COMPARISON: None. FINDINGS: RIGHT LOBE: The right lobe of the thyroid gland measures 2.5 x 5.2 x 2.8 cm. There is a homogeneous echotexture. Nodule 1:22 x 13 x 16 mm solid isoechoic wider than tall smoothly marginated nodule with no echogenic foci (TR 3) in the lateral right lobe and follow-up ultrasound is recommended in one year. Nodule 2:25 x 22 x 15 mm solid isoechoic wider than tall smoothly marginated nodule with no echogenic foci (TR 3) in the posterior right lobe for which ultrasound-guided biopsy is recommended. LEFT LOBE: The left lobe of the thyroid gland measures 1.8 x 4.4 x 1.6 cm. There is a heterogeneous echotexture. Nodule 3:9 x 7 x 7 mm solid isoechoic wider than tall ill-defined margin nodule with no echogenic foci (TR 3) in the posterior left lobe consistent with an adenoma. Nodule 4:13 x 9 x 10 mm solid isoechoic wider than tall smoothly marginated nodule with no echogenic foci (TR 3) in the lateral left lobe consistent with an adenoma. ISTHMUS: The isthmus measures . The regional lymph nodes are normal. US/Thyroid IMPRESSION: Multinodular thyroid gland with a dominant nodule right lobe for which ultrasound-guided biopsy is recommended. Follow-up ultrasound is recommended in one year. Electronically Signed: Anil Hartman MD at 21:33 EDT ,
== END | disposition home or self-care (01) ==
PROVIDERS: PCP Internal Medicine; Referring Provider Internal Medicine; Visit Provider Internal Medicine
DX: E04.9 Nontoxic goiter, unspecified (principal)
CPT/HCPCS: 76536

== ENCOUNTER → 2023-08-17 | Outpatient (CLI) | payer MEDICARE, BC, SELFPAY ==
--- NOTE | 2023-08-17 | ASPIG_PTH ---
PATIENT: SHAHEED PERKINS [facility] U#:[id number] AGE/SX: 77/F ROOM: RE08/17/[address]: Dr. Tamar Douglas MD : 1945 BED: DIS: 08/17/2023 SPEC #: [id number] RECD: 08/18/23 08:18 STATUS: FORD REQ #: [id number] ROHAN: 08/17/23 00:[address]: Tamar Douglas DEPT: CYTOLOGY RECD BY: Matilde Koo ENTERED: 08/18/23 08:24 SP TYPE: ASP OUT OTHR DR: Dr. Nelia Smith, DO Tissues: Thyroid gland, NOS Procedures: FNA Specimen Adequacy Special Stain Group II Surgery Specimen Level IV Cytology Other HEADER OPERATION: Fine needle aspiration, right thyroid PRE-OP DIAGNOSIS: Abnormal thyroid ultrasound TISSUE SUBMITTED: A - Right thyroid fluid, B - Right thyroid x8 slides DIAGNOSIS CYTOLOGY A. Fine needle aspiration, right thyroid nodule (cytospin and cell block): Macrophages consistent with benign cyst contents. See comment. B. Fine needle aspiration, right thyroid nodule (smears): Consistent with benign follicular nodule, Leander Category II. See comment. AM:aleshia 08/19/2023 COMMENT A. Rare benign follicular cells are present. B. The Leander System for thyroid diagnostic categorization was used in the evaluation of this case. The specimen is adequate for evaluation. CYTOLOGY STUDY Slides are reviewed. CYTOLOGY GROSS A - Received is 30 ml of brownish red fluid labeled with the patient's name and and designated per the requisition as right thyroid. Submitted for cytology preparation including cell block. B - Received are eight smears labeled with the patient's name and designated per the requisition as right thyroid. Submitted for staining. / aleshia 08/18/2023 TC:5 CPT: 82392 x2, [id number]
== END | disposition home or self-care (01) ==
PROVIDERS: PCP Internal Medicine; Visit Provider Surgery
DX: R93.89 Abnormal findings on diagnostic imaging of other specified body structures (principal)
CPT/HCPCS: 88161; 88172; 88305; 88313

== ENCOUNTER → 2023-09-09 | Outpatient (CLI) | payer MEDICARE, BC, SELFPAY ==
--- NOTE | 2023-09-09 13:38 | EKG12_ITS ---
Test Reason : PRE OP Blood Pressure : / mmHG Vent. Rate : 063 BPM Atrial Rate : 063 BPM P-R Int : 160 ms QRS Dur : 074 ms QT Int : 388 ms P-R-T Axes : 078 058 055 degrees QTc Int : 397 ms Normal sinus rhythm Septal infarct , age undetermined Abnormal ECG Confirmed by ELIEL GUNTER, PAL ([id number]), editor in chief JERMAIN REYNOLDS ([id number]) on 09/14/2023 8:37:42 AM Referred By: Jb Yepez Confirmed By:ERIS JULIAN MD
--- NOTE | 2023-09-09 13:40 | CT_ITS ---
EXAM: CT RIGHT LOWER EXTREMITY WITHOUT INTRAVENOUS CONTRAST CLINICAL INDICATION: KNEE TRAUMA TECHNIQUE: Helically acquired images were obtained of the right lower extremity without intravenous contrast. 2-D reformats were performed by the technologist. CTDIvol = ( 18.76 ) mGy, DLP = ( 1178.54 ) mGycm This CT exam was performed using one or more of the following dose reduction techniques: automated exposure control, adjustment of the mA and/or kV according to patient size, and/or use of iterative reconstruction technique. COMPARISON: February 05, 2015 FINDINGS: BONES/JOINTS: Diffuse disuse osteopenia. Yesx-[id number] joint space narrowing at the medial femorotibial compartment. Prominent suprapatellar enthesophyte. At least small amount of suprapatellar joint fluid. Moderate hip osteoarthrosis. Mild enthesopathy along the right greater trochanter. Mild degenerative changes of the pubic symphysis. Prominent posterior calcaneal enthesophyte. Ankle mortise intact. Bone island at the anterior aspect of the right femoral neck. No acute or healing fracture or malalignment. No other unusual lytic or sclerotic lesions of bone. No significant ankle joint effusion. No significant arthritic changes of the ankle. SOFT TISSUES: Unremarkable. No soft tissue swelling or gas. No radiopaque foreign body. OTHER FINDINGS: No free fluid in the pelvis. CT/Extremity Lower without Contra IMPRESSION: No acute or healing fracture or malalignment. Electronically Signed: Jai Juarez MD at 0:05 EST ,
== END | disposition home or self-care (01) ==
LOC: CT 13:38
PROVIDERS: PCP Internal Medicine; Referring Provider Orthopaedic Surgery; Visit Provider Orthopaedic Surgery
DX: Z01.818 Encounter for other preprocedural examination (principal); Z01.810 Encounter for preprocedural cardiovascular examination
CPT/HCPCS: 73700; 93005

== ENCOUNTER 2023-09-17 11:31 | Emergency (ER) | payer MEDICARE, BC, SELFPAY ==
[2023-09-17 11:31] VITALS: BP 172/66; PULSE 78; RESP 14; TEMP 36.2; O2SAT 100; BMI 26.1
--- NOTE | 2023-09-17 12:15 | EX.ED.DYSGE1 ---
HPI History of Present Illness Chief Complaint: Hypertension Detail of Chief Complaint: URI symptoms with a severe headache. Informant: patient and family Onset/Context/Timing Onset: Today Context: Sudden Onset Timing: Continuous Current Severity: Moderate Maximum Severity: Severe Narrative Narrative: 78-year-old female history of hypertension. Complaining of URI symptoms the last several days with a severe headache that began early this morning. She states she wakes up several times during the night normally and woke up last night and noticed she had a significant headache. Denies any falls or trauma. She is on no blood thinner other than aspirin. She has had a recent URI with a cough. Denies vomiting or diarrhea. Prior similar symptoms: No Recent Illness/Hospitalization: No PFSH PFS Medical History Arthritis Blood clot in vein Bone fracture Bone spur of finger IP joint Carpal tunnel syndrome Cataract COPD (chronic obstructive pulmonary disease) Deficient knowledge of hysterectomy High blood pressure Hyperparathyroidism IBS (irritable bowel syndrome) Osteoarthritis Osteopenia Parathyroid hormone deficiency Pneumonia Skin cancer UTI (urinary tract infection) Vascular disease Home Medications vitamin B comp and C no.3 15 mg-10 mg-50 mg-5 mg-300 mg capsule (B Complex Plus Vitamin C) 1 ea PO DAILY 10/09/14 [History Last Taken 12/05/15] Cholecalciferol (Vitamin D3) [Vitamin D3] 4,000 unit PO DAILY 12/07/15 [History Last Taken 12/05/15] aspirin 81 mg tablet,delayed release 81 mg PO DAILY@0800 ##30 12/10/15 [Rx Last Taken Unknown] menthol 0.44 %-zinc oxide 20.6 % topical ointment (Calmoseptine) 1 applic topical BID PRN irritated buttocks ##1 12/10/15 [Rx Last Taken Unknown] amitriptyline 10 mg tablet 10 mg PO DAILY 01/25/18 [History Last Taken Unknown] melatonin 5 mg tablet 5 mg PO DAILY 01/25/18 [History Last Taken Unknown] acetaminophen 500 mg tablet (Tylenol Extra Strength) 500 mg PO Q6H PRN 01/17/22 [History Last Taken Unknown] biotin 5,000 mcg disintegrating tablet 10,000 mcg PO DAILY 01/17/22 [History Last Taken Unknown] metoprolol tartrate 50 mg tablet 100 mg PO BID@0600,1800 01/17/22 [History Last Taken Unknown] multivitamin (Daily Multi-Vitamin tablet) 1 tab PO DAILY 01/17/22 [History Last Taken Unknown] vitamins A,C,[id number] 4,296 mcg-226 mg-90 mg capsule (PreserVision AREDS) 1 cap PO BID 01/17/22 [History Last Taken Unknown] ondansetron 4 mg disintegrating tablet 4 mg PO Q6H PRN nausea and vomiting #10 tabs 09/17/23 [Rx Last Taken Unknown] Allergy/AdvReac Type Severity Reaction Status Date / Time Corticosteroids Allergy NEEDS Verified 09/17/23 11:33 (Glucocorticoids) FOLLOW-UP nickel Allergy Hives Verified 09/17/23 11:33 meloxicam AdvReac Severe G.I. Bleed Verified 09/17/23 11:33 acetaminophen [From Percocet] AdvReac Nausea Verified 09/17/23 11:33 amoxicillin AdvReac Vomiting Verified 09/17/23 11:33 cimetidine [From Tagamet] AdvReac Diarrhea Verified 09/17/23 11:33 cimetidine HCl [From Tagamet] AdvReac Diarrhea Verified 09/17/23 11:33 oxycodone HCl [From Percocet] AdvReac Nausea Verified 09/17/23 11:33 Family History Other Alcohol abuse Bowel disease Breast cancer Diabetes Myocardial infarction Surgical History H/O bladder repair surgery H/O lateral meniscus repair of right knee H/O mastectomy H/O thoracic aortic aneurysm repair Hx of appendectomy Social History Smoking Status: Never smoker alcohol intake: current alcohol intake frequency: a few times a month Alcohol type: wine and hard liquor substance use type: does not use what type of physical activity do you participate in: other ROS ROS ED ROS Narrative Cough. Headache. Review of Systems ROS Unobtainable: Denies due to encephalopathy Constitutional Constitutional ED: Denies chills or fever(s) Eyes Eyes: Denies blurry vision ENT ENT ED: Denies ear pain Cardiovascular Cardiovascular: Denies chest pain Respiratory/Chest Respiratory/Chest: Reports cough; Denies dyspnea Gastrointestinal Gastrointestinal: Denies abdominal pain, constipation, diarrhea, melena, nausea or vomiting Genitourinary Genitourinary ED: Denies dysuria or hematuria Musculoskeletal Musculoskeletal: Denies arthralgias Integumentary Denies abscess Neurologic Neurologic: Reports headache(s); Denies paresthesias or weakness Psychiatric Psychiatric: Denies anxiety Endocrine Endocrinology: Denies cold intolerance Hematologic/Lymphatic Hematologic/Lymphatic: Reports none Allergic/Immunologic Allergic/Immunologic ED: Denies mouth swelling, tongue swelling or urticaria EXAM Physical Exam Narrative Exam Narrative: 78-year-old female no acute distress. Vital signs stable afebrile. Blood pressure 172/66. H EENT exam unremarkable. No trauma. No tenderness. Pupils round react light. No facial droop. Normal speech. Neck nontender. No meningismus. No lymphadenopathy. Lungs clear to auscultation bilateral. Heart regular rhythm rate about 80 no murmur. Chest wall and ribs nontender. Abdomen soft nontender. Moving all 4 extremities. 5 out of 5 medical information specialist strength bilaterally. Dorsi plantarflexion intact. No drift. Fingertip to nose within normal limits. NIH score 0. Const Vital Signs: 09/17/23 11:31 09/17/23 11:31 09/17/23 13:31 Temperature 97.2 F L Temperature Source Temporal Pulse Rate 78 Respiratory Rate 14 16 Respiratory Effort Normal Non-Labored Respiratory Pattern Normal Blood Pressure 172/66 H Blood Pressure Mean 101 Pulse Ox 100 Oxygen Delivery Method Room Air 09/17/23 14:21 Temperature Temperature Source Pulse Rate Respiratory Rate Respiratory Effort Respiratory Pattern Blood Pressure 149/67 H Blood Pressure Mean 94 Pulse Ox Oxygen Delivery Method Positive well nourished and well developed; Negative for obese, cachectic, contractures or unkempt General Appearance ED: well developed and NAD; Negative for unkempt, cachectic, contractures, cyanotic, diaphoretic or pallor Nutritional Appearance: Negative for cachectic or obese HEENT Reports moist mucous membranes; Denies TM's clear or dry mucous membranes Negative for trauma or tenderness Tympanic Membrane ED: Negative for TM's clear Mouth ED: No dry mucous membranes Mouth: No dry mucous membranes Eyes PERRL and EOMs intact bilaterally General Eye ED: Negative for pale conjunctiva, scleral icterus or other Neck no lymphadenopathy, supple and no JVD General: Negative for tenderness Lymph Lymphatic: Negative for other Chest Wall inspection of chest normal and palpation of chest normal Chest: Negative for other Resp normal respiratory effort and clear to auscultation bilaterally Effort and Inspection: Negative for retractions Auscultation: Negative for rales, rhonchi or wheezes Cardio regular rate, regular rhythm, S1 normal heart sound, S2 normal heart sound and no murmurs Palpation: Negative for palpable S3 or palpable S4 Rate: Negative for bradycardia or tachycardic Rhythm: Negative for abnormal rhythm GI normal to inspection, nondistended, normoactive bowel sounds, non-tender, non-distended and no masses Inspection: Negative for abdominal distention Auscultation: normoactive bowel sounds Palpation: soft; Negative for tender, guarding or splenomegaly Bladder / Kidney Exam: No other Back/Spine no CVA tenderness General Back: Negative for CVA tenderness Cervical Spine: Negative for cervical spine tenderness Thoracic Spine / Upper Back: Negative for thoracic spinal tenderness Lumbar Spine / Lower Back: Negative for lumbar spinal tenderness Extremity normal to inspection General Extremety ED: Negative for edema or tenderness General Extremity: Negative for edema Neuro oriented x3 and CN's II-XII intact bilaterally Sensorium / Orientation: alert; Negative for orientation impaired, lethargic or stuporous Motor Exam: strength 5/5 throughout; Negative for general weakness or strength abnormal Psych mental status grossly normal Appearance: Negative for unkempt Attitude: No agitated Mood & Affect: Negative for depressed, anxious or tearful Skin no rashes or lesions noted, no wounds and skin turgor normal General Skin Exam: elasticity normal; Negative for jaundice or pallor Lesions: No lesion noted Rashes: No rashes noted Trauma: Negative for abrasion Wounds: Negative for wounds noted MDM MDM MDM Narrative Medical decision making narrative: 78-year-old with a headache and URI symptoms. CAT scan of her brain. Because she typically does not get headaches. COVID and flu test. Screening labs. Zofran for nausea. Tylenol for pain. Neurologic exam at this time is normal. Repeat exam at 3:10 PM. Patient still has headache initially was improved by the Tylenol. Also some nausea. She will be given IV Zofran IV morphine and reassessed. We went over all of her test results including her lab work and CAT scan with her and family in the room. History & Record Review Discussion w/independent historian: Patient and Family Additional record(s) reviewed:: Prior inpatient record, Prior outpatient record, Prior ED visit and Prior labs Lab Data Attestation: I reviewed the patient's lab results. Lab results narrative: CBC normal. White count 6. H&H 14 and 46. Electrolytes normal. Gap is 6. Normal BUN of 10 creatinine 0.7. Glucose 120. COVID and flu both negative. Labs: Laboratory Results - last 24 hr 09/17/23 12:26 WBC 6.4 RBC 4.99 Hgb 14.7 Hct 46.2 MCV 92.6 MCH 29.5 MCHC 31.8 L RDW Std Deviation 45.8 H RDW Coeff of [place] 13.6 Plt Count 163 MPV 10.7 Immature Gran % (Auto) 0.500 Neut % (Auto) 78.8 H Lymph % (Auto) 8.7 L [place] % (Auto) 10.4 H Eos % (Auto) 0.8 Baso % (Auto) 0.8 Absolute Neuts (auto) 5.1 Absolute Lymphs (auto) 0.56 L Nucleated RBC % 0 Differential Comment SCANNED Sodium 138 Potassium 4.3 Chloride 104 Carbon Dioxide 28.0 Anion Gap 6 BUN 10 Creatinine 0.71 Estim Creat Clear Calc 40.38 Est GFR (MDRD) Af Amer 101 Est GFR (MDRD) Non-Af 84 BUN/Creatinine Ratio 14.0 Glucose 120 H Calcium 9.4 Radiography Chest X-Ray - ED: 1 View, Read by ED Physician, Read by Radiologist, Heart, Lungs, Mediastinum, Bony Structures, No Acute Disease and Chronic Changes Diagnostic Testing: Clinical Impression(s) from Imaging Studies Chest X-Ray 09/17/23 13:05 IMPRESSION: No acute abnormality is seen. Electronically Signed: Lazaro Abrams MD at 13:24 EST , Brain CT 09/17/23 13:08 IMPRESSION: Chronic involutional changes of the brain. Electronically Signed: Lazaro Abrams MD at 13:29 EST , Chest x-ray, portable, single view shows no acute abnormality. Very large aortic stent previously placed. No infiltrate. Interpreted both by myself and radiologist. CAT scan of the brain showed chronic changes. Discharge Plan Triage Chief Complaint: Hypertension ED Provider: Elliott Guerrero Dx/Rx/DC Orders Clinical Impression: History of aortic dissection, Headache, Viral syndrome Instructions: ED Viral Syndrome (Adult) Prescriptions: New ondansetron 4 mg tablet,disintegrating 4 mg PO Q6H PRN (Reason: nausea and vomiting) Qty: 10 0RF No Action PreserVision AREDS [id number] [id number] capsule 1 cap PO BID biotin 5,000 mcg tablet,disintegrating 10,000 mcg PO DAILY multivitamin [Daily Multi-Vitamin] Tablet 1 tab PO DAILY acetaminophen [Tylenol Extra Strength] 500 mg tablet 500 mg PO Q6H PRN vitamin B comp and C no.3 [B Complex Plus Vitamin C] 1 EACH capsule 1 ea PO DAILY Patient Comments: supplement Cholecalciferol (Vitamin D3) [Vitamin D3] 5,000 UNIT capsule 4,000 unit PO DAILY Patient Comments: supplement menthol-zinc oxide [Calmoseptine] 1 APPLIC ointment 1 applic topical BID PRN (Reason: irritated buttocks) Qty: 1 0RF aspirin 81 MG tablet 81 mg PO DAILY@0800 Qty: 30 0RF melatonin 5 MG tablet 5 mg PO DAILY amitriptyline 10 MG tablet 10 mg PO DAILY metoprolol tartrate 50 mg tablet 100 mg PO BID@0600,1800 Primary Care Provider: Nelia Smith Referrals: Nelia Smith, [Primary Care Provider] - 3-5 Days if not improving Activity Restrictions/Additional Instructions: Plenty of fluids and rest. Tylenol and/or Motrin for your headache. Zofran for your nausea. Open your doctor if not improving or return if worse. Disposition Disposition: Home, Self Care
[2023-09-17 12:34] LABS: Absolute Lymphocyte Count 0.56 X10^3/uL (0.83-4.51); Absolute Neutrophil Count 5.1 X10^3/uL (2.0-7.7); Basophil# 0.05 X10^3/uL; Basophil% 0.8 % (0-1); Eosinophil# 0.05 X10^3/uL; Eosinophils% 0.8 % (0-5); Hematocrit 46.2 % (37-47); Hemoglobin 14.7 g/dL (12.0-15.0); Lymphocyte # 0.56 X10^3/ul (0.83-4.51); Lymphocyte % 8.7 % (19-41); Mean Corp Hgb Conc 31.8 g/dL (32-36); Mean Corpuscular Hgb 29.5 pg (27.0-32.0); Mean Corpuscular Volume 92.6 fL (81-99); Mean Platelet Vol. 10.7 fl (6.2-12.0); Monocyte# 0.67 X10^3/uL; Monocyte% 10.4 % (0-10); NRBC Flagged by Analyzer 0 % (0-5); Neutrophil # 5.08 X10^3/uL (2.7-7.7); Neutrophil % 78.8 % (47-70); POSITIVE DIFFERENTIAL YES; Platelet Count 163 K/mm3 (150-450); RBC Distribution Width CV 13.6 % (11.6-14.6); RBC Distribution Width SD 45.8 fl (35.1-43.9); Red Blood Count 4.99 M/mm3 (4.2-5.4); White Blood Count 6.4 K/mm3 (4.4-11.0)
[2023-09-17] MEDS: Acetaminophen 500 MG Tablet 1000 MG PO (12:34)
[2023-09-17] MEDS: Ondansetron 4 MG/2 ML Vial IV ×2 (12:34→15:18)
[2023-09-17 12:37] LABS: Differential Indicated SCAN CRITERIA MET
[2023-09-17 12:48] LABS: Differential Comment SCANNED
[2023-09-17 12:51] LABS: Anion Gap 6 (5-15); BUN 10 mg/dL (7-18); Calcium,Total 9.4 mg/dL (8.5-10.1); Chloride 104 mmol/L (98-107); Creatinine, Serum 0.71 mg/dL (0.55-1.02); EST Glomerular Filtration Rate 84 mL/min (>60); Est Glom Filt Rate - Afr Amer 101 mL/min (>60); Estimated Creatinine Clearance 40.38 ml/min; Glucose 120 mg/dL (74-106); Potassium 4.3 mmol/L (3.5-5.1); Sodium Level 138 mmol/L (136-145)
--- NOTE | 2023-09-17 13:05 | RAD_ITS ---
STUDY: X-RAY CHEST REASON FOR EXAM: Female, 78 years old. Cough TECHNIQUE: Single AP portable view of the chest. COMPARISON: None. FINDINGS: Hyperinflation. Calcified granuloma in the right lower lobe. There is no demonstrated pleural abnormality. Normal size heart. Normal mediastinum and cheli. Normal visualized pulmonary arteries. There is atherosclerotic calcification of the aortic arch with tortuosity. Endoluminal stent graft is seen in the mid to distal portion of the descending thoracic aorta. Normal visualized thoracic spine. Normal visualized ribs, clavicles, and shoulders. There is no demonstrated abnormality of the visualized soft tissue structures of the upper abdomen. RAD/Chest 1 View (Portable) IMPRESSION: No acute abnormality is seen. Electronically Signed: Lazaro Abrams MD at 13:24 EST ,
--- NOTE | 2023-09-17 13:08 | CT_ITS ---
STUDY: CT BRAIN WITHOUT CONTRAST REASON FOR EXAM: Female, 78 years old. Headache RADIATION DOSAGE (If Supplied By Facility): CTDIvol = ( 47.06 ) mGy, DLP = ( 890.33 ) mGycm TECHNIQUE: Transaxial CT imaging of the brain was performed without administration of intravenous contrast material. Individualized dose optimization techniques were used for this CT. COMPARISON: Comparison is made with prior study dated April 15, 2017. FINDINGS: Normal soft tissue structures. There is hyperostosis frontalis internus. Normal size ventricles and extra-axial spaces for the patient''s age. Normal white matter tracts of the cerebral hemispheres. Normal basal ganglia and thalami. Normal brainstem. Normal cerebellum. There is no intracranial hemorrhage. There are no findings of an acute ischemic infarction. Atherosclerotic plaque formation of the cavernous portions of the internal carotid arteries bilaterally. Normal visualized paranasal sinuses. CT/Brain/Head without Contrast IMPRESSION: Chronic involutional changes of the brain. Electronically Signed: Lazaro Abrams MD at 13:29 EST ,
[2023-09-17 13:31] VITALS: RESP 16
[2023-09-17 14:21] VITALS: BP 149/67
[2023-09-17] MEDS: Morphine 4 MG/ML Syringe IV (15:18)
[2023-09-17 16:00] VITALS: RESP 16
== END 2023-09-17 16:13 | disposition home or self-care (01) ==
PROVIDERS: Emergency Provider Emergency Medicine; PCP Internal Medicine; Visit Provider Emergency Medicine
DX: B34.9 Viral infection, unspecified (principal); J44.9 Chronic obstructive pulmonary disease, unspecified; R11.0 Nausea; I10 Essential (primary) hypertension; R51.9 Headache, unspecified
CPT/HCPCS: 70450; 71045; 80048; 85025; 87428; 96374; 96375; 99283; A4216; J2405

== ENCOUNTER 2023-09-27 20:41 | Emergency (ER) | payer MEDICARE, BC, SELFPAY ==
[2023-09-27 20:44] VITALS: BP 162/82; PULSE 76; RESP 15; TEMP 36.3; O2SAT 97; BMI 25.7
[2023-09-27 22:51] VITALS: BP 178/68; PULSE 71; RESP 16; O2SAT 98
--- NOTE | 2023-09-27 23:00 | CT_ITS ---
STUDY: CTA CHEST REASON FOR EXAM: Female, 78 years old. hypertension / SP abdominal aortic aneurysm RADIATION DOSAGE (If Supplied By Facility): CTDIvol = ( 13.88 ) mGy, DLP = ( 412.15 ) mGycm TECHNIQUE: The examination was performed with the intravenous administration of IV 75mL [id number]. Post-processing of the angiographic images was performed, with multiplanar reformation and 3D reconstruction. Individualized dose optimization techniques were used for this CT. COMPARISON: Chest radiograph June 18, 2023.. CT September 20, 2018 March 26, 2020 FINDINGS: Thyroid nodules up to 2.1 cm on the right, not significantly changed from September 20, 2018 consistent with a benign process. Pulmonary outflow track well opacified. No pulmonary embolus. Aortic atherosclerosis with aneurysmal dilatation of the distal arch to 4.3 cm just prior to the descending thoracic aortic stent graft, slightly increased from 4.0 cm October 26, 2019. Normal heart and pericardium. Mild multivessel coronary atherosclerosis. Scattered calcified mediastinal and hilar lymph nodes are present. No endobronchial lesion. Mild bilateral peribronchial thickening. No airspace consolidation, effusion, pneumothorax. Right basilar calcified granuloma. Mild apical scarring. 2 mm posterior right upper lobe nodule axial image 180 Normal osseous structures. Hepatic and splenic calcified sequela of prior granulomatous disease. CT/CTA Chest W/WO Contrast IMPRESSION: No pulmonary embolism or evidence of acute airspace disease. Mild peribronchial thickening as can be seen with bronchitis/bronchiolitis. Mild aneurysmal dilatation of the aorta 4.3 cm just prior to the descending thoracic aortic stent graft, slightly increased from 4.0 cm October 26, 2019 Thoracic and abdominal sequela of prior granulomatous disease. Electronically Signed: Moses De León MD at 0:38 EST ,
[2023-09-27] MEDS: hydrALAZINE 20 MG/ML Vial 10 MG IV (23:28)
[2023-09-27] MEDS: 0.9% Normal Saline (500mL Bag) 500 ML 999 ML IV (23:28)
[2023-09-27] MEDS: cloNIDine HCl 0.1 MG Tablet 0.100000000000000006 MG PO (23:28)
[2023-09-27 23:34] VITALS: BP 171/76; PULSE 75; RESP 22; O2SAT 95
[2023-09-27 23:38] LABS: Absolute Neutrophil Count 5.5 X10^3/uL (2.0-7.7); Basophil# 0.05 X10^3/uL; Basophil% 0.6 % (0-1); Eosinophil# 0.12 X10^3/uL; Eosinophils% 1.5 % (0-5); Hematocrit 45.5 % (37-47); Hemoglobin 14.6 g/dL (12.0-15.0); Lymphocyte % 20.9 % (19-41); Mean Corp Hgb Conc 32.1 g/dL (32-36); Mean Corpuscular Hgb 29.3 pg (27.0-32.0); Mean Corpuscular Volume 91.4 fL (81-99); Mean Platelet Vol. 10.6 fl (6.2-12.0); Monocyte# 0.68 X10^3/uL; Monocyte% 8.4 % (0-10); NRBC Flagged by Analyzer 0 % (0-5); Neutrophil # 5.54 X10^3/uL (2.7-7.7); Neutrophil % 68.1 % (47-70); Platelet Count 231 K/mm3 (150-450); RBC Distribution Width CV 13.2 % (11.6-14.6); RBC Distribution Width SD 44.6 fl (35.1-43.9); Red Blood Count 4.98 M/mm3 (4.2-5.4); White Blood Count 8.1 K/mm3 (4.4-11.0)
[2023-09-27 23:57] LABS: Anion Gap 4 (5-15); BUN 10 mg/dL (7-18); BUN/Creat Ratio 15.2 RATIO (10-20); Calcium,Total 9.8 mg/dL (8.5-10.1); Chloride 108 mmol/L (98-107); Creatinine, Serum 0.66 mg/dL (0.55-1.02); EST Glomerular Filtration Rate 92 mL/min (>60); Est Glom Filt Rate - Afr Amer 111 mL/min (>60); Estimated Creatinine Clearance 40.38 ml/min; Glucose 113 mg/dL (74-106); Potassium 3.7 mmol/L (3.5-5.1); Sodium Level 141 mmol/L (136-145); Troponin-I HS 9 pg/mL (3.0-54.0)
--- NOTE | 2023-09-28 00:44 | EX.ED.DYSGE1 ---
HPI History of Present Illness Chief Complaint: Hypertension Informant: patient and family Narrative Narrative: Patient is an 78-year-old female with past medical history of hypertension COPD and thoracic aortic aneurysm status post grafting. She states has been taking her medication as directed but her blood pressure has been spiking . She states she was seen last week because she did not feel well and her blood pressure was elevated at that time. She states she was worked up and everything was reportedly normal. She states she got better from the illness but her blood pressure still spiking and secondary to this she comes in for evaluation. Patient states that there has been no change to her medication she reports she is taking it appropriately or as directed and denies any excessive stimulant use or illicit drug use [facility] Medical History Arthritis Blood clot in vein Bone fracture Bone spur of finger IP joint Carpal tunnel syndrome Cataract COPD (chronic obstructive pulmonary disease) Deficient knowledge of hysterectomy High blood pressure Hyperparathyroidism IBS (irritable bowel syndrome) Osteoarthritis Osteopenia Parathyroid hormone deficiency Pneumonia Skin cancer UTI (urinary tract infection) Vascular disease Home Medications vitamin B comp and C no.3 15 mg-10 mg-50 mg-5 mg-300 mg capsule (B Complex Plus Vitamin C) 1 ea PO DAILY 10/09/14 [History Last Taken 12/05/15] Cholecalciferol (Vitamin D3) [Vitamin D3] 4,000 unit PO DAILY 12/07/15 [History Last Taken 12/05/15] aspirin 81 mg tablet,delayed release 81 mg PO DAILY@0800 ##30 12/10/15 [Rx Last Taken Unknown] menthol 0.44 %-zinc oxide 20.6 % topical ointment (Calmoseptine) 1 applic topical BID PRN irritated buttocks ##1 12/10/15 [Rx Last Taken Unknown] amitriptyline 10 mg tablet 10 mg PO DAILY 01/25/18 [History Last Taken Unknown] melatonin 5 mg tablet 5 mg PO DAILY 01/25/18 [History Last Taken Unknown] acetaminophen 500 mg tablet (Tylenol Extra Strength) 500 mg PO Q6H PRN 01/17/22 [History Last Taken Unknown] biotin 5,000 mcg disintegrating tablet 10,000 mcg PO DAILY 01/17/22 [History Last Taken Unknown] metoprolol tartrate 50 mg tablet 100 mg PO BID@0600,1800 01/17/22 [History Last Taken Unknown] multivitamin (Daily Multi-Vitamin tablet) 1 tab PO DAILY 01/17/22 [History Last Taken Unknown] vitamins A,C,A-gghl-obwbsk 4,296 mcg-226 mg-90 mg capsule (PreserVision AREDS) 1 cap PO BID 01/17/22 [History Last Taken Unknown] ondansetron 4 mg disintegrating tablet 4 mg PO Q6H PRN nausea and vomiting #10 tabs 09/17/23 [Rx Last Taken Unknown] Allergy/AdvReac Type Severity Reaction Status Date / Time Corticosteroids Allergy NEEDS Verified 09/27/23 20:49 (Glucocorticoids) FOLLOW-UP nickel Allergy Hives Verified 09/27/23 20:49 meloxicam AdvReac Severe G.I. Bleed Verified 09/27/23 20:49 acetaminophen [From Percocet] AdvReac Nausea Verified 09/27/23 20:49 amoxicillin AdvReac Vomiting Verified 09/27/23 20:49 cimetidine [From Tagamet] AdvReac Diarrhea Verified 09/27/23 20:49 cimetidine HCl [From Tagamet] AdvReac Diarrhea Verified 09/27/23 20:49 oxycodone HCl [From Percocet] AdvReac Nausea Verified 09/27/23 20:49 Family History Other Alcohol abuse Bowel disease Breast cancer Diabetes Myocardial infarction Surgical History H/O bladder repair surgery H/O lateral meniscus repair of right knee H/O mastectomy H/O thoracic aortic aneurysm repair Hx of appendectomy Social History Smoking Status: Never smoker alcohol intake: current alcohol intake frequency: a few times a month Alcohol type: wine and hard liquor substance use type: does not use what type of physical activity do you participate in: other ROS ROS ED Constitutional Constitutional ED: Denies chills or fever(s) Eyes Eyes: Denies change in vision ENT ENT ED: Denies sore throat Cardiovascular Cardiovascular: Denies chest pain, palpitations or racing heartbeat Respiratory/Chest Respiratory/Chest: Denies cough or dyspnea Gastrointestinal Gastrointestinal: Denies abdominal pain, diarrhea, nausea or vomiting Genitourinary Genitourinary ED: Denies dysuria Musculoskeletal Musculoskeletal: Denies back pain or myalgias Integumentary Denies rash Neurologic Neurologic: Denies headache(s) Hematologic/Lymphatic Hematologic/Lymphatic: Denies easy bleeding or easy bruising EXAM Physical Exam Const Vital Signs: 09/27/23 20:44 09/27/23 22:51 09/27/23 22:52 Temperature 97.3 F L Temperature Source Temporal Pulse Rate 76 71 Respiratory Rate 15 16 Respiratory Pattern Normal Blood Pressure 162/82 H 178/68 H Blood Pressure Mean 108 104 Pulse Ox 97 98 Oxygen Delivery Method Room Air Room Air 09/27/23 23:34 Temperature Temperature Source Pulse Rate 75 Respiratory Rate 22 H Respiratory Pattern Blood Pressure 171/76 H Blood Pressure Mean 107 Pulse Ox 95 Oxygen Delivery Method Room Air Positive well nourished and well developed General Appearance ED: well developed HEENT HEENT Narrative: Normocephalic atraumatic Eyes PERRL and EOMs intact bilaterally Neck supple and no JVD Chest Wall palpation of chest normal Resp normal respiratory effort and clear to auscultation bilaterally Cardio regular rate and regular rhythm Rate: other Other Details: Radial and carotid pulses are equal and symmetric GI normal to inspection, nondistended, normoactive bowel sounds, non-tender, non-distended and no masses GI Narrative: No pulsatile mass or fluid wave noted Auscultation: normoactive bowel sounds Palpation: soft Extremity normal to inspection Extremity Narrative: No asymmetric edema no pitting edema negative Homans' sign bilaterally Neuro oriented x3, CN's II-XII intact bilaterally and no sensory deficits noted Neuro Narrative: Cranial nerves II through XII are grossly intact there are no focal neurologic deficits. No pronator drift no dysmetria no truncal ataxia. NIH stroke scale score of 0 Sensorium / Orientation: alert Motor Exam: strength 5/5 throughout Psych mental status grossly normal Skin no rashes or lesions noted General Skin Exam: Negative for jaundice MDM MDM MDM Narrative Medical decision making narrative: Patient presented to the ER hypertensive but otherwise had no signs of endorgan damage. With differential diagnosis being accelerated hypertension versus acute kidney injury versus acute coronary syndrome versus leaking thoracic aortic aneurysm patient blood work EKG and a CTA were obtained. Labs revealed no signs of acute kidney injury or signs of acute coronary syndrome. EKG was sinus rhythm without ischemic or dysrhythmia changes and CTA revealed a patent graft without leak. Patient was medicated with hydralazine and clonidine and her blood pressure did reduce by approximately 25%. Therefore at this time with no signs of endorgan damage and resolution of her hypertension there is no need for further evaluation in the ER and patient is otherwise safe for discharge History & Record Review Discussion w/independent historian: Patient and Family Lab Data Attestation: I reviewed the patient's lab results. Labs: Laboratory Results - last 24 hr 09/27/23 09/28/23 23:25 00:24 WBC 8.1 RBC 4.98 Hgb 14.6 Hct 45.5 MCV 91.4 MCH 29.3 MCHC 32.1 RDW Std Deviation 44.6 H RDW Coeff of Augustine 13.2 Plt Count 231 MPV 10.6 Immature Gran % (Auto) 0.500 Neut % (Auto) 68.1 Lymph % (Auto) 20.9 Carson % (Auto) 8.4 Eos % (Auto) 1.5 Baso % (Auto) 0.6 Absolute Neuts (auto) 5.5 Absolute Lymphs (auto) 1.70 Nucleated RBC % 0 PT Cancelled 15.2 H INR Cancelled 1.2 APTT Cancelled 26.4 Sodium 141 Potassium 3.7 Chloride 108 H Carbon Dioxide 29.0 Anion Gap 4 L BUN 10 Creatinine 0.66 Estim Creat Clear Calc 40.38 Est GFR (MDRD) Af Amer 111 Est GFR (MDRD) Non-Af 92 BUN/Creatinine Ratio 15.2 Glucose 113 H Calcium 9.8 Troponin I High Sens 9 Radiography Diagnostic Testing: Clinical Impression(s) from Imaging Studies Chest CTA 09/27/23 23:00 IMPRESSION: No pulmonary embolism or evidence of acute airspace disease. Mild peribronchial thickening as can be seen with bronchitis/bronchiolitis. Mild aneurysmal dilatation of the aorta 4.3 cm just prior to the descending thoracic aortic stent graft, slightly increased from 4.0 cm October 26, 2019 Thoracic and abdominal sequela of prior granulomatous disease. Electronically Signed: Moses De León MD at 0:38 EST , Discharge Plan Triage Chief Complaint: Hypertension ED Provider: Jai Henderson Dx/Rx/DC Orders Clinical Impression: Accelerated hypertension, Hyperparathyroidism, History of thoracic aortic aneurysm repair Instructions: ED Hypertension, Established Prescriptions: No Action PreserVision AREDS [id number] capsule 1 cap PO BID biotin 5,000 mcg tablet,disintegrating 10,000 mcg PO DAILY multivitamin [Daily Multi-Vitamin] Tablet 1 tab PO DAILY acetaminophen [Tylenol Extra Strength] 500 mg tablet 500 mg PO Q6H PRN vitamin B comp and C no.3 [B Complex Plus Vitamin C] 1 EACH capsule 1 ea PO DAILY Patient Comments: supplement Cholecalciferol (Vitamin D3) [Vitamin D3] 5,000 UNIT capsule 4,000 unit PO DAILY Patient Comments: supplement menthol-zinc oxide [Calmoseptine] 1 APPLIC ointment 1 applic topical BID PRN (Reason: irritated buttocks) Qty: 1 0RF aspirin 81 MG tablet 81 mg PO DAILY@0800 Qty: 30 0RF melatonin 5 MG tablet 5 mg PO DAILY amitriptyline 10 MG tablet 10 mg PO DAILY metoprolol tartrate 50 mg tablet 100 mg PO BID@0600,1800 ondansetron 4 mg tablet,disintegrating 4 mg PO Q6H PRN (Reason: nausea and vomiting) Qty: 10 0RF Primary Care Provider: Nelia Smith Referrals: Nelia Smith DO [Primary Care Provider] - Activity Restrictions/Additional Instructions: Your workup today showed no signs of heart damage or kidney damage or leakage of your thoracic aneurysm. Please continue all of your home medications as directed by your doctor and follow-up with them to discuss potential change or addition of medication for further blood pressure control. Return to the ER should you have any further concerns Disposition Disposition: Home, Self Care Discharge Date/Time: 09/28/23 01:20
[2023-09-28 00:48] LABS: International Normalized Ratio 1.2; Partial Thromboplast Time 26.4 Seconds (24.1-36.2); Prothrombin Time (Protime)PT. 15.2 SECONDS (11.7-14.9)
== END 2023-09-28 01:20 | disposition home or self-care (01) ==
PROVIDERS: Emergency Provider Emergency Medicine; PCP Internal Medicine; Visit Provider Emergency Medicine
DX: E21.3 Hyperparathyroidism, unspecified (principal); J44.9 Chronic obstructive pulmonary disease, unspecified; I10 Essential (primary) hypertension; Z79.899 Other long term (current) drug therapy; Z98.890 Other specified postprocedural states
CPT/HCPCS: 71275; 80048; 84484; 85025; 85610; 85730; 93005; 96374; 99283; J7030; Q9967; A4216

== ENCOUNTER → 2023-10-09 | Outpatient (CLI) | payer MEDICARE, BC, SELFPAY ==
--- NOTE | 2023-10-10 07:35 | PFT ---
INTRODUCTION: The patient is an 78-year-old female who presents for pulmonary function studies secondary to a diagnosis of dyspnea. Respiratory therapy reported good patient effort. Bronchodilators were used during testing. INTERPRETATION: Forced expiration spirometry demonstrates the presence of a moderate large airways obstructive ventilatory defect. There was a partial response to aerosolized bronchodilators. Body plethysmography was performed and revealed an elevated RV to 135% of predicted, indicative of underlying air trapping. Diffusing capacity by single breath CO was within normal limits. IMPRESSION: Irreversible moderate large airways obstructive ventilatory defect with associated air trapping.
== END | disposition home or self-care (01) ==
LOC: PSN 10:12
PROVIDERS: PCP Internal Medicine; Referring Provider Internal Medicine; Visit Provider Internal Medicine
DX: I45.10 Unspecified right bundle-branch block (principal); J44.9 Chronic obstructive pulmonary disease, unspecified
CPT/HCPCS: 94060; 94726; 94729

== ENCOUNTER → 2023-10-29 | Outpatient (CLI) | payer MEDICARE, BC, SELFPAY ==
--- NOTE | 2023-10-29 07:33 | ECHOD_ITS ---
Reason For Study: RBBB Procedure This was a 2D Doppler, Color Flow transthoracic echocardiogram. Exam performed in department. Left Ventricle Normal LV size. The estimated ejection fraction is 65 %. Left ventricular systolic function is normal. Stage 3 diastolic dysfunction. No regional wall motion abnormalities noted. Right Ventricle Normal RV size. Normal systolic function. Atria The left atrium is moderately enlarged. The right atrium is mildly enlarged. Previous negative bubble study for right to left shunt. However, color doppler suggestive of PFO/ASD with left to right shunt. This is unchanged from previous echo. Mitral Valve The mitral valve is structurally normal. No prolapse or stenosis seen. Mild (1+) mitral valve insufficiency. Tricuspid Valve Normal tricuspid valve. Mild to moderate (1-2+) tricuspid valve insufficiency. Right ventricular systolic pressure estimated to be 36 mmHg. Aortic Valve Trisinus/trileaflet aortic valve. Mild focal aortic valve calcification. Aortic sclerosis, no stenosis. Pulmonic Valve The pulmonic valve is not well visualized. Great Vessels Normal aortic root. Pericardium/Pleural No pericardial effusion. MMode/2D Measurements & Calculations LVIDd: 4.2 cm IVSd: 0.71 cm Ao root diam: 2.5 cm LVIDs: 2.6 cm LVPWd: 0.78 cm LA dimension: 3.8 cm RVDd: 3.1 cm FS: 38.0 % LAV(MOD-bp): 79.8 ml LVAd ap4: 19.4 cm2 SV(MOD-sp4): 32.2 ml LAV(MOD-bp) Indexed: 44.4 ml/m2 LVLd ap4: 6.2 cm LAV(MOD-sp2): 80.7 ml EDV(MOD-sp4): 48.5 ml LAV(MOD-sp4): 75.7 ml EDV(sp4-el): 51.3 ml LVAs ap4: 10.4 cm2 LVLs ap4: 5.6 cm ESV(MOD-sp4): 16.2 ml ESV(sp4-el): 16.6 ml EF(MOD-sp4): 66.5 % EF(sp4-el): 67.6 % SV(sp4-el): 34.7 ml LA A4 area: 24.0 cm2 RA A4 area: 18.9 cm2 TAPSE: 1.8 cm Time Measurements MV dec time: 0.19 sec Doppler Measurements & Calculations MV E max yunior: 134.7 cm/sec Lat Peak E' Yunior: 9.4 cm/sec Med Peak E' Yunior: 9.5 cm/sec MV A max yunior: 56.9 cm/sec E/E' lat: 14.3 E/E' med: 14.2 MV E/A: 2.4 MV V2 max: 181.1 cm/sec MV P1/2t max yunior: 181.6 cm/sec Ao V2 max: 148.4 cm/sec MV max P.1 mmHg MV P1/2t: 71.3 msec Ao max P.8 mmHg MV V2 mean: 70.6 cm/sec MV dec slope: 746.2 cm/sec2 Ao V2 mean: 100.1 cm/sec MV mean P.8 mmHg Ao mean P.7 mmHg MV V2 VTI: 39.3 cm MVA(P1/2t): 3.1 cm2 Ao V2 VTI: 35.0 cm AV (velocity ratio): 0.71 LV V1 max: 102.0 cm/sec PA V2 max: 72.9 cm/sec TR max yunior: 287.4 cm/sec LV V1 max P.2 mmHg TR max P.1 mmHg LV V1 mean P.3 mmHg LV V1 mean: 72.4 cm/sec LV V1 VTI: 25.0 cm ECHO/Echo Complete Interpretation Summary The estimated ejection fraction is 65 %. Stage 3 diastolic dysfunction. The left atrium is moderately enlarged. The right atrium is mildly enlarged. Mild (1+) mitral valve insufficiency. Mild to moderate (1-2+) tricuspid valve insufficiency. Previous negative bubble study for right to left shunt. However, color doppler suggestive of PFO/ASD with left to right shunt. This is unchanged from previous echo. Ordering Physician: Nelia Smith Referring Physician: Nelia Smith Performed By: Sumeet Chapman RCS
--- OUTSIDE RECORDS SUMMARY | 2023-10-29 07:48 | XMS RPT_ITS | CCD ---
Author Name Unknown Address [address] [place] [address] Organization [facility] Care Team Providers Care Nicker And Breaker Name Role Phone Nelia Smith Unavailable Yas Forbes Unavailable Yves Foster Unavailable Jaimee Sorensen Unavailable Unavailable Gravius, Monik Unavailable Unavailable Ciesa, Jsoseline Unavailable Unavailable Unavailable Zoraida, Nelia Unavailable Unavailable Zoraida, Nelia Unavailable Unavailable Zoraida, Nelia Unavailable Unavailable Zoraida, Nelia Unavailable Yas Forbes Unavailable Yves Foster Unavailable Jaimee Sorensen Unavailable Unavailable Gravius, Monik Unavailable Unavailable Ciesa, Josseline Unavailable Unavailable Unavailable Radha Rain Unavailable Unavailable Gravius, Monik Unavailable Unavailable Jaimee Sorensen Unavailable Unavailable Zoraida DO, Nelia Unavailable [phone] Yas Forbes MD Unavailable [phone] Dr. Yves Foster Unavailable Gravius EXERCISE RIDER, Monik Unavailable Unavailable Jose Carroll LPN Unavailable Unavailable Messenger Jaimee LAUREN Unavailable Unavailable Ciesa AGENCY MANAGER, Josseline Unavailable Unavailable Unavailable Zoraida DO, Nelia Unavailable [phone] Kishana Albina Unavailable Lorraine Romero LPN Unavailable Unavailable Ciesa, Albina Unavailable Анна RITTERJono Unavailable Unavailable Zaki Neil MD Unavailable [phone] Kirsten MOONMicki Unavailable Unavailable Zoraida REA, Nelia Wilson Primary Care Provider SAE MARIE Attending Unavailable ZORAIDA, NELIA WILSON Primary Care Unavailab ZAKI Salas Attending Unavailable ZORAIDA, NELIA WILSON Primary Care Unavailab le ZORAIDA, NELIA WILSON Primary Care Unavailab le ZORAIDA, NELIA WILSON Referring Unavailab ZAKI Salas Attending Unavailable TAMAR DOUGLAS Attending Unavailable ZORAIDA, NELIA WILSON Primary Care Unavailab TAMAR Leija Attending Unavailable ZORAIDA, NELIA WILSON Primary Care Unavailab le LACAVASAE Attending Unavailable ZORAIDA, NELIA WILSON Primary Care Unavailab le Allergies Allergy Classification Reported Allergen(s) Allergy Type Date of Onset Reaction(s) Facility Acetaminophen / oxyCODONE (2 sources) Acetaminophen / oxyCODONE; Translations: [Percocet *ANALGESICS - OPIOID*] Drug [facility] Work Phone: Amoxicillin / Clavulanate (2 sources) Amoxicillin / Clavulanate; Translations: [Augmentin *PENICILLINS*] Drug Allergy [facility] Work Phone: NSAIDs (2 sources) meloxicam; Translations: [Meloxicam *ANALGESICS - ANTI-INFLAMMATORY *] Drug Allergy [facility] Work Phone: Unclassified (1 source) Allergy to substance (finding) [facility] Work Phone: Unclassified (1 source) Allergy to substance (finding) [facility] Work Phone: Unclassified (1 source) Allergy to substance (finding) [facility] Work Phone: Unclassified (1 source) Allergy to substance (finding) [facility] Work Phone: Unclassified (1 source) Allergy to substance (finding) [facility] Work Phone: Unclassified (1 source) Allergy to substance (finding) [facility] Work Phone: Unclassified (1 source) Allergy to substance (finding) [facility] Work Phone: Unclassified (1 source) Allergy to substance (finding) [facility] Work Phone: (20 sources) Acetaminophen / oxyCODONE; Translations: [Percocet *ANALGESICS - OPIOID*] Drug Allergy 5 Rash [facility] Work Phone: Medications Completed/Discontinued Medications Medication Drug Class(es) Dates Sig (Normalized) Sig (Original) acetaminophen 32 mg/ml / diphenhydrAMINE hydrochloride 1.25 mg/ml / phenylephrine hydrochloride 0.5 mg/ml oral solution (20 sources) Histamine-1 Receptor Antagonist, alpha-1 Adrenergic Agonist Start: 03-03-2014 End: 06-09-2014 ADVIL 200MG CAPLET (5 sources) Start: 04-26-2003 End: 07-06-2023 ADVIL 200MG CAPLET 2-3 tabs qid 0 04/26/2003 07/06/2023 Discontinued (Course of therapy completed) Problems Active Problems Problem Classification Problem Date Documented Da te Episodic/Chronic Abdominal hernia (20 sources) Umbilical hernia; Translations: [Hernia, umbilical] 05-26-2018 Episodic Abdominal pain (20 sources) Abdominal pain, left lower quadrant; Translations: [Abdominal Pain,LLQ] Resolved: 11-26-2015 11-26-2015 Episodic Anxiety disorders (20 sources) Acute stress disorder; Translations: [Stress reaction] 10-22-2020 Chronic Aortic; peripheral; and visceral artery aneurysms (20 sources) Dissection of thoracic aorta; Translations: [Abdominal aortic aneurysm] 05-26-2018 Chronic Past or Other Problems Problem Classification Problem Date Documented Date Episodic/Chronic Administrative/social admission (20 sources) Medical examinations/reports status; Translations: [Pneumococcal vaccination given] Resolved: 04-19-2015 08-10-2015 Episodic Diabetes mellitus without complication (17 sources) Diabetes mellitus without complication Diverticulosis and diverticulitis (15 sources) Diverticulosis of large intestine; Translations: [Diverticulosis of colon] 05-26-2018 Results Test Name Value Interpretation Reference Range Facil ity Vital Signs Date Time Vital Sign Value Performing Clinician Facility 08-24-2023 08:56-0500 Body height 165.1 cm Tamar Douglas MD Work Phone: [facility] 08-24-2023 08:56-0500 Body temperature 97.3 [degF] Tamar Douglas MD Work Phone: [facility] 08-24-2023 08:56-0500 Body weight 73.48 kg Tamar Douglas MD Work Phone: [facility] 08-24-2023 08:56-0500 Diastolic blood pressure 70 mm[Hg] Tamar Douglas MD Work Phone: [facility] 08-24-2023 08:56-0500 Heart rate 86 /min Tamar Douglas MD Work Phone: [facility] 08-24-2023 08:56-0500 SaO2% (BldA) [Mass fraction] 93 % Tamar Douglas MD Work Phone: [facility] 08-24-2023 08:56-0500 Systolic blood pressure 152 mm[Hg] Tamar Douglas MD Work Phone: [facility] 08-10-2023 12:52-0500 Diastolic blood pressure 72 mm[Hg] Sae Marie MD Work Phone: [facility] 08-10-2023 12:52-0500 Heart rate 72 /min Sae Marie MD Work Phone: [facility] 08-10-2023 12:52-0500 SaO2% (BldA) [Mass fraction] 97 % Sae Marie MD Work Phone: [facility] 08-10-2023 12:52-0500 Systolic blood pressure 164 mm[Hg] Sae Marie MD Work Phone: [facility] 07-06-2023 13:06-0400 Body weight 73.48 kg Sae Marie MD Work Phone: [facility] 07-06-2023 13:06-0400 Diastolic blood pressure 73 mm[Hg] Sae Marie MD Work Phone: [facility] 07-06-2023 13:06-0400 Heart rate 66 /min Sae Marie MD Work Phone: [facility] 07-06-2023 13:06-0400 SaO2% (BldA) [Mass fraction] 97 % Sae Marie MD Work Phone: [facility] 07-06-2023 13:06-0400 Systolic blood pressure 161 mm[Hg] Sae Marie MD Work Phone: [facility] 05-19-2023 09:29-0400 Body height 165.1 cm Zaki Garay MD Work Phone: [facility] 05-19-2023 09:29-0400 Body temperature 97.2 [degF] Zaki Garay MD Work Phone: [facility] 05-19-2023 09:29-0400 Body weight 74.21 kg Zaki Garay MD Work Phone: [facility] 05-19-2023 09:29-0400 Diastolic blood pressure 80 mm[Hg] Zaki Garay MD Work Phone: [facility] 05-19-2023 09:29-0400 Heart rate 75 /min Zaki Garay MD Work Phone: [facility] 05-19-2023 09:29-0400 SaO2% (BldA) [Mass fraction] 99 % Zaki Garay MD Work Phone: [facility] 05-19-2023 09:29-0400 Systolic blood pressure 132 mm[Hg] Zaki Garay MD Work Phone: [facility] 04-23-2023 10:49-0400 Body height 162.56 cm Nelia Smith DO Work Phone: [facility] Work Phone: 04-23-2023 10:49-0400 Body mass index (BMI) [Ratio] 28 kg/m2 Nelia Zoraida DO Work Phone: [facility] Work Phone: 04-23-2023 10:49-0400 Body surface area Derived from formula 1.79 m2 Nelia Zoraida DO Work Phone: [facility] Work Phone: 04-23-2023 10:49-0400 Body weight 73.99 kg Nelia Zoraida DO Work Phone: [facility] Work Phone: 04-23-2023 10:49-0400 Diastolic blood pressure 70 mm[Hg] Nelia Zoraida DO Work Phone: [facility] Work Phone: 04-23-2023 10:49-0400 Heart rate 60 /min Nelia Zoraida DO Work Phone: [facility] Work Phone: 04-23-2023 10:49-0400 Systolic blood pressure 130 mm[Hg] Nelia Zoraida DO Work Phone: [facility] Work Phone: 03-23-2023 12:00-0400 Body height 162.56 cm [facility] Work Phone: 03-23-2023 12:00-0400 Body mass index (BMI) [Ratio] 28 kg/m2 [facility] Work Phone: 03-23-2023 12:00-0400 Body surface area Derived from formula 1.79 m2 [facility] Work Phone: 03-23-2023 12:00-0400 Body temperature 97 [degF] [facility] Work Phone: 03-23-2023 12:00-0400 Body weight 73.99 kg [facility] Work Phone: 03-23-2023 12:00-0400 Diastolic blood pressure 70 mm[Hg] [facility] Work Phone: 03-23-2023 12:00-0400 Heart rate 63 /min [facility] Work Phone: 03-23-2023 12:00-0400 Respiratory rate 18 /min [facility] Work Phone: 03-23-2023 12:00-0400 SaO2% (BldA) [Mass fraction] 97 % [facility] Work Phone: 03-23-2023 12:00-0400 Systolic blood pressure 134 mm[Hg] [facility] Work Phone: 03-21-2022 09:47-0400 Body height 162.56 cm Lorraine Slarb [facility] Work Phone: 03-21-2022 09:47-0400 Body mass index (BMI) [Ratio] 27.68 kg/m2 Lorraine Slarb [facility] Work Phone: 03-21-2022 09:47-0400 Body surface area Derived from formula 1.79 m2 Lorraine Slarb [facility] Work Phone: 03-21-2022 09:47-0400 Body temperature 97.2 [degF] Lorraine Slarb [facility] Work Phone: 03-21-2022 09:47-0400 Body weight 73.14 kg Lorraine Slarb [facility] Work Phone: 03-21-2022 09:47-0400 Diastolic blood pressure 82 mm[Hg] Lorraine Slarb ER RN [facility] Work Phone: 03-21-2022 09:47-0400 Heart rate 61 /min Lorraine Slarb ER RN [facility] Work Phone: 03-21-2022 09:47-0400 Respiratory rate 16 /min Lorraine Slarb ER RN [facility] Work Phone: 03-21-2022 09:47-0400 SaO2% (BldA) [Mass fraction] 96 % Lorraine Slarb ER RN [facility] Work Phone: 03-21-2022 09:47-0400 Systolic blood pressure 140 mm[Hg] Lorraine Slarb ER RN [facility] Work Phone: 01-24-2022 09:55-0400 Body height 162.56 cm Monik Salas [facility] Work Phone: 01-24-2022 09:55-0400 Body mass index (BMI) [Ratio] 28.33 kg/m2 Monik Puckettius [facility] Work Phone: 01-24-2022 09:55-0400 Body surface area Derived from formula 1.8 m2 Monik Salas [facility] Work Phone: 01-24-2022 09:55-0400 Body temperature 97.3 [degF] Monik Salas [facility] Work Phone: 01-24-2022 09:55-0400 Body weight 74.87 kg Monik Salas [facility] Work Phone: 01-24-2022 09:55-0400 Diastolic blood pressure 80 mm[Hg] Monik Puckettius [facility] Work Phone: 01-24-2022 09:55-0400 Heart rate 87 /min Monik Puckettius [facility] Work Phone: 01-24-2022 09:55-0400 Respiratory rate 16 /min Monik Salas [facility] Work Phone: 01-24-2022 09:55-0400 SaO2% (BldA) [Mass fraction] 97 % Monik Salas [facility] Work Phone: 01-24-2022 09:55-0400 Systolic blood pressure 120 mm[Hg] Monik Salas [facility] Work Phone: 03-20-2021 13:40-0400 Body height 162.56 cm Jose Carroll LPN [facility] Work Phone: 03-20-2021 13:40-0400 Body mass index (BMI) [Ratio] 28.16 kg/m2 Jose Carroll LPN [facility] Work Phone: 03-20-2021 13:40-0400 Body surface area Derived from formula 1.8 m2 Jose Carroll LPN [facility] Work Phone: 03-20-2021 13:40-0400 Body temperature 97.3 [degF] Jose Carroll LPN [facility] Work Phone: 03-20-2021 13:40-0400 Body weight 74.41 kg Jose Carroll LPN [facility] Work Phone: 03-20-2021 13:40-0400 Diastolic blood pressure 84 mm[Hg] Jose Carroll LPN [facility] Work Phone: 03-20-2021 13:40-0400 Heart rate 65 /min Jose Carroll LPN [facility] Work Phone: 03-20-2021 13:40-0400 Respiratory rate 16 /min Jose Carroll LPN [facility] Work Phone: 03-20-2021 13:40-0400 SaO2% (BldA) [Mass fraction] 95 % Jose Carroll LPN [facility] Work Phone: 03-20-2021 13:40-0400 Systolic blood pressure 120 mm[Hg] Jose Carroll LPN [facility] Work Phone: 07-25-2020 08:21-0400 BMI (Body Mass Index) 30.9 kg/m2 Monik Salas [facility] Work Phone: Encounters Encounter Date Encounter Type Care Provider Facility Start: 08-24-2023 End: 08-24-2023 ambulatory TAMAR DOUGLAS Facility:[facility] Start: 08-24-2023 End: 08-24-2023 Patient encounter procedure Tamar Douglas MD Work Phone: General Surgery Procedures Date Procedure Procedure Detail Performing Clinician Start: 05-01-2023 End: 05-02-2023 Procedure Note: See Note; NOTES: [facility] Imaging Services [address] [place] [address] Thyroid MR#: [id number] Acct: [id number] Name: LEYLA RIOJAS Rep #: [id number] : 1945 F 77 From: Anil Hartman MD PCP: Dr. Nelia Smith, Status: REG CLI Study: Thyroid Date of Exam: 05/01/23 Exam# [id number] Ordering Dr: Nelia Smith DO STUDY: THYROID ULTRASOUND REASON FOR EXAM: Female, 77 years old. thyroid nodule TECHNIQUE: Ultrasound evaluation of the thyroid was performed with real-time and static ferreira-scale imaging. COMPARISON: None. FINDINGS: RIGHT LOBE: The right lobe of the thyroid gland measures 2.5 x 5.2 x 2.8 cm. There is a homogeneous echotexture. Nodule 1:22 x 13 x 16 mm solid isoechoic wider than tall smoothly marginated nodule with no echogenic foci (TR 3) in the lateral right lobe and follow-up ultrasound is recommended in one year. Nodule 2:25 x 22 x 15 mm solid isoechoic wider than tall smoothly marginated nodule with no echogenic foci (TR 3) in the posterior right lobe for which ultrasound-guided biopsy is recommended. LEFT LOBE: The left lobe of the thyroid gland measures 1.8 x 4.4 x 1.6 cm. There is a heterogeneous echotexture. Nodule 3:9 x 7 x 7 mm solid isoechoic wider than tall ill-defined margin nodule with no echogenic foci (TR 3) in the posterior left lobe consistent with an adenoma. Nodule 4:13 x 9 x 10 mm solid isoechoic wider than tall smoothly marginated nodule with no echogenic foci (TR 3) in the lateral left lobe consistent with an adenoma. ISTHMUS: The isthmus measures . The regional lymph nodes are normal. US/Thyroid IMPRESSION: Multinodular thyroid gland with a dominant nodule right lobe for which ultrasound-guided biopsy is recommended. Follow-up ultrasound is recommended in one year. Electronically Signed: Anil Hartman MD at 21:33 EDT , CC: Dr. Nelia Smith DO Public Information Director: Signed Nelia Smith DO Work Phone: Start: 04-13-2023 End: 04-13-2023 Procedure Note: See Note; NOTES: [facility] Cardiovascular Services [address] [place] [address] Carotid Duplex Ultrasound 04/13/23 1033 MR#: [id number] Acct: [id number] Name: LEYLA RIOJAS Rep #: [id number] : 1945 77 From: Darrell Falcon MD Attending Dr: Dr. Nelia Smith DO Status: R EG CLI Ordering Dr: Nelia Smith DO Date: 04/13/23 Location: [facility] Sex: F C Admitted: Reason For Study: Carotid occlusion, bilateral Rt. Velocities/BP Lt. Velocities/BP Prox CCA 76.8/16.3 cm/sec. Prox CCA 75.1/14.6 cm/sec. Mid CCA 74.9/13.5 cm/sec. Mid CCA 52/11.3 cm/sec. Dist CCA 71.1/15.4 cm/sec. Dist CCA 47.6/11.3 cm/sec. Prox ICA 63/12.4 cm/sec. Prox ICA 50.9/12.4 cm/sec. Mid ICA 63/15.7 cm/sec. Mid ICA 46.5/13.5 cm/sec. Dist ICA 69.6/16.8 cm/sec. Dist ICA 54.2/15.7 cm/sec. Rt. ICA/CCA = 0.93. Lt. ICA/CCA = 1.04. Prox ECA 101.1/6.5 cm/sec. Prox ECA 83.9/8 cm/sec. Rt. Vert. 60.8/12.4 cm/sec. Lt. Vert. 49.8/12.4 cm/sec. Right Extracranial There is homogeneous, smooth atherosclerotic plaque noted in the right common carotid artery. There is intimal thickening but no significant atherosclerotic plaque noted in the right internal carotid artery. There is intimal thickening but no significant atherosclerotic plaque noted in the right external carotid artery. Antegrade flow is noted in the right vertebral artery. Vascularized structure noted within thyroid that measures 1.42 x 1.57 x 2.25 cm. Left Extracranial There is homogeneous, smooth atherosclerotic plaque noted in the left common carotid artery. There is intimal thickening but no significant atherosclerotic plaque noted in the left internal carotid artery. There is heterogeneous, irregular atherosclerotic plaque noted in the left external carotid artery. Antegrade flow is noted in the left vertebral artery. VL/Carotid Duplex Ultrasound Interpretation Summary Right thyroid solid cystic 2.25 by 1.42 x 1.57 cm nodule Intimal thickening of the proximal right internal carotid artery with less than 50% stenosis Less than 50% stenosis right external carotid artery Intimal thickening at the proximal left internal carotid artery with less than 50% stenosis Less than 50% stenosis left external carotid artery Patent antegrade vertebral arteries bilaterally No change in the carotid arteries bilaterally from the previous examination of September 20, 2018 Ordering Physician: Nelia Smith Referring Physician: Nelia Smith Performed By: Larissa Lew RVT 04/13/23 1238 Date Darrell Falcon MD CC: Dr. Nelia Smith DO Date Dictated: 04/13/23 1033 Date Transcribed: 04/13/23 1238 Public Information Director: Santa Smith DO Work Phone: Start: 04-13-2023 End: 04-13-2023 Procedure Note: See Note; NOTES: [facility] Imaging Services [address] [place] [id number] SCRN MAMM (CAD)W/CLAUDIA BILAT MR#: [id number] Acct: [id number] Name: LEYLA RIOJAS Rep #: [id number] : 1945 F 77 From: Vazquez Beverly MD PCP: Dr. Nelia Smith DO Status: REG CLI Study: SCRN MAMM (CAD)W/CLAUDIA BILAT Date of Exam: 03/28 04/19 Exam# [id number] Ordering Dr: Nelia Smith DO MAMMOGRAPHY - BILATERAL SCREENING 3-D TOMOSYNTHESIS REASON FOR EXAM: Female, 77 years old. Routine screening PERTINENT HISTORY: Mother and aunt with breast cancer.. TECHNIQUE: 2-D mammograms and 3-D Tomosynthesis of the breast (s) were performed. CAD was performed. COMPARISON: 04/12/2021 FINDINGS: The breast composition is composed of scattered fibroglandular density. Scattered benign punctate calcifications are seen. No dense spiculated masses or suspicious microcalcifications are identified. No architectural distortion is identified. There is no skin thickening or retraction. There has been no significant change since the prior study. BI/SCRN MAMM (CAD)W/CLAUDIA BILAT IMPRESSION: No mammographic signs of malignancy. Routine yearly mammograms recommended. ASSESSMENT CATEGORY: BIRADS Category 2: Benign. A letter regarding these results will be sent to the patient by the facility within 30 days. FOLLOW UP RECOMMENDATION: Yearly follow up mammogram recommended. (A) Approximately 10% of breast cancers are not detected by mammography. A normal mammogram should not delay biopsy of a clinically suspicious abnormality. Electronically Signed: Tobias Beverly MD at 11:13 EDT Reading Location ID and State: [facility] / [place] , Service support , CC: Dr. Nelia Smith DO Public Information Director: Signed Nelia Smith DO Work Phone: Start: 04-10-2022 End: 04-11-2022 Comments: See Note; NOTES: [facility] Imaging Services [address] [place] [address] Dexa Bone Density Study MR#: [id number] Acct: [id number] Name: LEYLA RIOJAS Rep #: [id number] : 1945 F 76 From: Lazaro smith MD PCP: Dr. Nelia Smith DO Status: [facility] Study: Dexa Bone Density Study Date of Exam: 04/10/22 Exam# [id number] Ordering Dr: Nelia Smith DO STUDY: DUAL ENERGY X-RAY ABSORPTIOMETRY / DXA REASON FOR EXAM: Female, 76 years old. [id number]. Patient is postmenopausal. TECHNIQUE: Bone Mineral Density (BMD) measurements of lumbar spine and bilateral hips were obtained. COMPARISON: Comparison is made with prior study dated 10/12/2019. FINDINGS: Lumbar Spine (L1-L4): g/cm2 (1.015) / T-score (-0.6) / Z-score (2.1) Findings are suggestive of normal bone density with a low fracture risk. Left Femur Total: g/cm2 (0.928) / T-score (-0.1) / Z-score (1.9) Left Femoral Neck: g/cm2 (0.807) / T-score (-0.4) / Z-score (1.9) Right Femur Total: g/cm2 (0.919) / T-score (-0.2) / Z-score (1.8) Right Femoral Neck: g/cm2 (0.785) / T-score (-0.6) / Z-score (1.7) The T-Scores on the most recent prior examination were: Lumbar Spine (L1-L4): There has been worsening of bone density since the previous examination. Left Femur Total: which represents a worsening of 4.8%. Right Femur Total: which represents an improvement of 2.4%. BD/Dexa Bone Density Study IMPRESSION: The patient is considered normal as [...] follows: Mild -1 through -1.5 Moderate -1.6 through -2.0 Severe -2.1 through -2.4 The Z-score is the number of standard deviations above or below age-matched controls. A Z-score of less than -1.5 would be considered abnormal. References: 1. NIH Osteoporosis and Related Bone Diseases www osteo.org 2. International Society for Clinical Densitometry www iscd.org 3. National Osteoporosis Foundation www nof.org Electronically Signed: Lazaro Abrams MD at 8:12 EDT , CC: Dr. Nelia Smith DO Public Information Director: Signed Nelia Smith DO Work Phone: Start: 04-10-2022 End: 04-10-2022 Comments: See Note; NOTES: [facility] Imaging Services [address] [place] [address] SCRN MAMM (CAD)W/CLAUDIA BILAT MR#: [id number] Acct: [id number] Name: LEYLA RIOJAS Rep #: [id number] : 1945 F 76 From: Lazaro smith MD PCP: Dr. Nelia Smith DO Status: REG CLI Study: SCRN MAMM (CAD)W/CLAUDIA BILAT Date of Exam: 03/28 01/17 Exam# [id number] Ordering Dr: Nelia Smith DO MAMMOGRAPHY - BILATERAL SCREENING REASON FOR EXAM: Female, 76 years old. Routine annual screening examination. PERTINENT HISTORY: Mother with breast cancer. Aunt with breast cancer. Remote bilateral excisional breast biopsies. TECHNIQUE: Digital bilateral breast claudia (3D mammographic acquisition) in the CC and MLO projections. 2-D mediolateral oblique (MLO) and craniocaudad (CC) views of both breasts were obtained. CAD: Full Field Digital Mammography with Computer Added Detection was performed. COMPARISON: Comparison is made with prior study dated 04/12/2021 and 10/12/2019. FINDINGS: Breast Composition: There are scattered areas of fibroglandular density. There are no dominant masses or suspicious calcifications. Stable bilateral microcalcifications. Stable small benign-appearing bilateral axillary lymph nodes. No other significant abnormalities are identified. There has been no significant change since the prior study. BI/SCRN MAMM (CAD)W/CLAUDIA BILAT IMPRESSION: Stable bilateral screening mammogram. Yearly follow-up mammogram recommended. (A) ASSESSMENT CATEGORY: BIRADS Category 2: Benign. A letter regarding these results will be sent to the patient by the facility within 30 days. Approximately 10% of breast cancers are not detected by mammography. A normal mammogram should not delay biopsy of a clinically suspicious abnormality. [id number] Electronically Signed: Lazaro Abrams MD at 13:18 EDT Reading Location ID and State: [address] [place] [address] , Service support , CC: Dr. Nelia Smith DO Public Information Director: Signed eNlia Smith DO Work Phone: Start: 03-27-2022 End: 03-27-2022 Comments: See Note; NOTES: [facility] Imaging Services [address] [place] [address] CT Abd/Pelvis W/WO Contrast MR#: [id number] Acct: [id number] Name: LEYLA RIOJAS Rep #: [id number] : 1945 F 76 From: Slick Byrd DO PCP: Dr. Nelia Smith DO Status: REG CLI Study: CT Abd/Pelvis W/WO Contrast Date of Exam: 02/28 Exam# [id number] Ordering Dr: Nelia Smith DO STUDY: CT ABDOMEN AND PELVIS WITH AND WITHOUT CONTRAST REASON FOR EXAM: Female, 76 years old. Microscopic hematuria. RADIATION DOSAGE (If Supplied By Facility): CTDIvol = ( 14.96 ) mGy, DLP = ( 1837.33 ) mGycm TECHNIQUE: Transaxial images were obtained from the dome of the diaphragm to the symphysis pubis with oral contrast. 100 mL of ISOVUE-300. was administered. Sagittal and coronal images were reconstructed. Individualized dose optimization techniques were used for this CT. COMPARISON: 12/06/2014. FINDINGS: Calcified granuloma in the right lung base. There is no acute infiltrate or mass. The visualized portions of the heart are within normal limits. There is a stent within prominent distal thoracic aorta. Normal liver. Normal gallbladder and extrahepatic biliary system. There are multiple benign calcified granulomata of the spleen. Normal pancreas. Normal bilateral adrenal glands. The cyst in the upper pole of an otherwise normal right kidney. Normal left kidney. Normal visualized ureters. There is poor distention of the stomach with evidence of wall thickening. Normal small intestine. Normal colon. There is non-visualization of the appendix. Atherosclerotic changes and ectasia of the abdominal aorta without aneurysm. Normal inferior vena cava. Normal retroperitoneum. Normal urinary bladder. Unremarkable vaginal cuff. No pelvic lymphadenopathy. No free air or free fluid is seen within the peritoneal cavity Normal abdominal wall. Stable degenerative changes. CT/CT Abd/Pelvis W/WO Contrast IMPRESSION: 1. Question gastritis. 2. Resolution of the colitis seen on the previous study. 3. No other major interval change. Electronically Signed: Slick Byrd DO at 22:57 EDT Reading Location ID and State: [address] [place] [address] Tel [phone], Service support , CC: Dr. Nelia Smith DO Public Information Director: Signed Nelia Smith DO Work Phone: Start: 01-17-2022 End: 01-20-2022 Comments: See Note; NOTES: [facility] 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 Bleed acetaminophen [From Percocet] Adverse Reaction (Verified 01/17/22 10:14) Nausea amoxicillin Adverse Reaction (Verified 01/17/22 10:14) Vomiting cimetidine [From Tagamet] Adverse Reaction (Verified 01/17/22 10:14) Diarrhea cimetidine HCl [From Tagamet] Adverse Reaction (Verified 01/17/22 10:14) Diarrhea oxycodone HCl [From Percocet] Adverse Reaction (Verified 01/17/22 10:14) Nausea STEROIDS Adverse Reaction (Uncoded 01/17/22 10:14) Other [facility] Medical History (Updated 01/17/22 @ 10:[address] Ciro Duckworth MD) Arthritis Blood clot in vein Bone fracture Bone spur of finger IP joint Carpal tunnel syndrome Cataract COPD (chronic obstructive pulmonary disease) Deficient knowledge of hysterectomy High blood pressure Hyperparathyroidism IBS (irritable bowel syndrome) Osteoarthritis Osteopenia Parathyroid hormone deficiency Pneumonia Skin cancer UTI (urinary tract infection) Vascular disease Surgical History (Updated 01/17/22 @ 10:23 by Maggie Murillo) H/O bladder repair surgery H/O lateral meniscus repair of right knee H/O mastectomy H/O thoracic aortic aneurysm repair Hx of appendectomy Family History (Updated 01/17/22 @ 10:24 by Maggie Murillo) Other Alcohol abuse Bowel disease Breast cancer Diabetes Myocardial infarction Social History (Updated 01/17/22 @ 10:23 by Maggie Murillo) Smoking Status: Never smoker alcohol intake: current alcohol intake frequency: a few times a month Alcohol type: wine and hard liquor substance use type: does not use what type of physical activity do you participate in: other HPI HPI Chief Complaint: GI BLEED Details: LEYLA RIOJAS, is a 76 F who presents to the office today for hyperparathyroidism, referred by Dr. Forbes. She has complicated past medical history including AAA, arthritis, basal cell and squamous cell carcinoma, COPD, HTN and PVD. Lab show calcium levels range from 8.5 to 9.0, PTH levels of 84.4 and 91.9. She is taking biotin. She takes a multivitamin, but no extra vitamin D or calcium. Exam Const General: cooperative, healthy appearing, comfortable, no acute distress, well developed and not cushingoid Nutritional Appearance: well nourished Orientation: alert, awake and oriented x3 HENMT Head: normal to inspection Ears: hearing grossly normal bilaterally Nose: external nose normal Mouth: oral mucosae normal Eyes General: appearance normal, both eyes and all related structures Alignment and Position: alignment normal Periorbital: periorbital findings normal Eyelids: eyelids normal Conjunctivae: conjunctivae normal Neck Neck: normal visual inspection Neck mass: No Thyroid: thyroid normal Carotids: no bruits Lymphatic: no lymphadenopathy noted Chest Chest palpation inspection: normal inspection of the chest Resp Effort Inspection: normal respiratory effort, able to speak in complete sentences, symmetric chest movement, no audible wheezes and no cough Auscultation: Bilateral: Clear to Auscultation Cardio Rate: regular rate Rhythm: regular rhythm GI Inspection: normal to inspection Palpation: soft Skin General: no rashes or lesions noted Neuro General: patient alert, patient awake and patient oriented x3 Cranial Nerves: CN's II-XI intact bilaterally Cognition: normal cognition Speech: speech normal Gait: normal gait Motor: muscle tone normal throughout Extrem General: no edema Psych Appearance: grossly normal Mental Status: mental status grossly normal Mood: congruent mood Affect: normal affect Speech and Movement: speech and movement normal Attitude: cooperative Thought Process: normal Thought Content: normal Judgment: judgment good Coding Level of Care Code Off vis,new,level 4 Diagnoses Hyperparathyroidism E21.3 Assessment and Plan Assessment and Plan (1) Hyperparathyroidism: Status: Acute Orders: Orders: Phosphorus 01/17/22 Plan - Dr. Ciro Duckworth MD: She has 2 elevated PTH levels, although they may be falsely elevated due to her being on biotin. There is no hypercalcemia, therefore she does not have primary hyperparathyroidism. She may have vitamin D deficiency, so will check that. ADD: vitamin D levels are normal at 81, therefore PTH is likely falsely elevated. She could also have calcium deficiency. I will ask her to start a calcium supplent, then repeat labs in 6 weeks with stopping biotin prior to lab draw. I have spent [50] minutes today reviewing labs, records and history. Time includes coordinating care, interpretation of tests, discussion with patient's other health care providers via telephone. This also includes time I spent with the patient for exam, treatment plan and education as well as documenting clinical information. Plan Details Other Orders: Orders: Vitamin D,25 Hydroxy 01/17/22 E55.9 01/20/22 0746 <Electronically signed by Ciro Duckworth MD> Date Ciro Duckworth MD Cosigner Signature: Date (if applicable) CC: Dr. Yas Forbes MD; DO Nelia Ramirez DO Work Phone: Start: 04-12-2021 End: 04-12-2021 Comments: See Note; NOTES: [facility] Imaging Services [address] [place] [address] SCRN MAMM (CAD)W/CLAUDIA BILSWATI MR#: [id number] Acct: [id number] Name: LEYLA RIOJAS Rep #: [id number] : 1945 F 75 From: Lazaro smith MD PCP: Dr. Nelia Smith DO Status: [facility] Study: SCRN MAMM (CAD)W/CLAUDIA BILAT Date of Exam: 03/28 03/18 Exam# [id number] Ordering Dr: Nelia Smith DO MAMMOGRAPHY - BILATERAL SCREENING REASON FOR EXAM: Female, 75 years old. Routine annual screening examination. PERTINENT HISTORY: Mother with breast cancer. Aunt with breast cancer. History of bilateral excisional breast biopsies. TECHNIQUE: Digital bilateral breast claudia (3D mammographic acquisition) in the CC and MLO projections. 2-D mediolateral oblique (MLO) and craniocaudad (CC) views of both breasts were obtained. CAD: Full Field Digital Mammography with Computer Added Detection was performed. COMPARISON: Comparison is made with prior study dated 10/12/2019 and 10/06/2018. FINDINGS: Breast Composition: There are scattered areas of fibroglandular density. There are no dominant masses or suspicious calcifications. Stable benign-appearing bilateral axillary lymph nodes. No other significant abnormalities are identified. There has been no significant change since the prior study. BI/SCRN MAMM (CAD)W/CLAUDIA BILAT IMPRESSION: Stable bilateral screening mammogram. Yearly follow-up mammogram recommended. (A) ASSESSMENT CATEGORY: BIRADS Category 2: Benign. A letter regarding these results will be sent to the patient by the facility within 30 days. Approximately 10% of breast cancers are not detected by mammography. A normal mammogram should not delay biopsy of a clinically suspicious abnormality. [id number] Electronically Signed: Lazaro Abrams MD at 11:50 EDT , Service support , CC: Dr. Nelia Smith DO Public Information Director: Signed Nelia Smith DO Work Phone: Start: 10-12-2019 End: 10-13-2019 Dexa Bone Density Study Comments: See Note; NOTES: [facility] Imaging Services [address] [place] [address] Dexa Bone Density Study MR#: [id number] Acct: [id number] Name: LEYLA RIOJAS Rep #: [id number] : 1945 F 74 From: Lazaro Abrams MD PCP: Nelia Smith DO Status: [facility] CLI Study: Dexa Bone Density Study Date of Exam: 10/12/19 Exam# [id number] Ordering Dr: Nelia Smith DO STUDY: DUAL ENERGY X-RAY ABSORPTIOMETRY / DXA REASON FOR EXAM: 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 COMPARISON: Comparison is made with prior study dated September 22, 2017. FINDINGS: Lumbar Spine (L1-L4): g/cm2 (1.255) / T-score (0.5) / Z-score (2.2) Findings are suggestive of normal bone density with a low fracture risk. Left Femur Total: g/cm2 (1.042) / T-score (0.3) / Z-score (2.1) Left Femoral Neck: g/cm2 (0.954) / T-score (-0.6) / Z-score (1.4) Right Femur Total: g/cm2 (0.962) / T-score (-0.4) / Z-score (1.4) Right Femoral Neck: g/cm2 (0.886) / T-score (-1.1) / Z-score (0.9) The T-Scores on the most recent prior examination were: Lumbar Spine (L1-L4): There has been improvement of bone density since the previous examination. Left Femur Total: which represents an improvement of 0.6%. Right Femur Total: which represents a worsening of 6.1%. BD/Dexa Bone Density Study IMPRESSION: The patient is considered osteopenic as outlined below according to [employer] [...] follows: Mild -1 through -1.5 Moderate -1.6 through -2.0 Severe -2.1 through -2.4 The Z-score is the number of standard deviations above or below age-matched controls. A Z-score of less than -1.5 would be considered abnormal. References: 1. NIH Osteoporosis and Related Bone Diseases http://www.osteo.org 2. International Society for Clinical Densitometry http://www.iscd.org 3. National Osteoporosis Foundation http://www.nof.org Electronically Signed: Lazaro Abrams, at 12:31 EST , Service support , CC: Nelia Smith DO Public Information Director: Signed Nelia Smith Work Phone: Start: 10-12-2019 End: 10-12-2019 SCREEN MAMM (CAD) W/CLAUDIA BILAT Comments: See Note; NOTES: [facility] Imaging Services [address] [place] [address] SCREEN MAMM (CAD) W/CLAUDIA BILAT MR#: [id number] Acct: [id number] Name: LEYLA RIOJAS Rep #: [id number] : 1945 F 74 From: Lazaro Abrams MD PCP: Nelia Smith DO Status: REG CLI Study: SCREEN MAMM (CAD) W/CLAUDIA BILAT Date of Exam: 10/12/19 Exam# [id number] Ordering Dr: Nelia Smith DO MAMMOGRAPHY - BILATERAL SCREENING REASON FOR EXAM: 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 Routine annual screening examination. PERTINENT HISTORY: Aunt with breast cancer. History of remote bilateral excisional breast biopsies. TECHNIQUE: Digital bilateral breast claudia (3D mammographic acquisition) in the CC and MLO projections. 2-D mediolateral oblique (MLO) and craniocaudad (CC) views of both breasts were obtained. CAD: Full Field Digital Mammography with Computer Added Detection was performed. COMPARISON: Comparison is made with prior examination dated October 06, 2018 and September 22, 2017. FINDINGS: Breast Composition: There are scattered areas of fibroglandular density. There are no dominant masses or suspicious calcifications. No other significant abnormalities are identified. There has been no significant change since the prior study. BI/SCREEN MAMM (CAD) W/CLAUDIA BILAT IMPRESSION: Stable bilateral screening mammogram. Yearly follow-up mammogram recommended. (A) ASSESSMENT CATEGORY: BIRADS Category 1: Negative. A letter regarding these results will be sent to the patient by the facility within 30 days. Approximately 10% of breast cancers are not detected by mammography. A normal mammogram should not delay biopsy of a clinically suspicious abnormality. [id number] Electronically Signed: Lazaro Abrams, at 9:41 EST , Service support , CC: Nelia Smith DO Public Information Director: Signed Nelia Smith Work Phone: Start: 10-06-2018 End: 10-06-2018 SCREENING MAMM (CAD), BILAT Comments: See Note; NOTES: [facility] Imaging Services [address] [place] [address] SCREENING MAMM (CAD), BILAT MR#: [id number] Acct: [id number] Name: LEYLA RIOJAS Rep #: [id number] : 1945 F 73 From: Lazaro Abrams MD PCP: Nelia Smith DO Status: REG CLI Study: SCREENING MAMM (CAD), BILAT Date of Exam: 10/06/18 Exam# [id number] Ordering Dr: Nelia Smith DO MAMMOGRAPHY - BILATERAL SCREENING REASON FOR EXAM: Female, 73 years old. Routine annual screening examination. PERTINENT HISTORY: Mother with breast cancer. Aunt with breast cancer. Prior bilateral excisional breast biopsies. TECHNIQUE: Digital bilateral breast claudia (3D mammographic acquisition) in the CC and [...] delay biopsy of a clinically suspicious abnormality. [id number] Electronically Signed: Lazaro Abrams MD at 14:09 EST Tel [phone], Service support , CC: Nelia Smith DO Public Information Director: Signed Nelia Smith Work Phone: Start: 09-21-2018 End: 09-21-2018 Carotid Duplex Ultrasound Comments: See Note; NOTES: [facility] Cardiovascular Services [address] [place] [address] Carotid Duplex Ultrasound 09/20/18 1245 MR#: [id number] Acct: [id number] Name: LEYLA RIOJAS Rep #: [id number] : 1945 73 From: Darrell Falcon MD [...] the left vertebral artery. Procedure Carotid Duplex 52166. Exam performed in department. Interpretation Summary No [...] Date Dictated: 09/20/18 1245 Date Transcribed: 09/21/18600 Public Information Director: Signed Nelia Smith Work Phone: Start: 09-20-2018 End: 09-22-2018 CTA Chest W/WO Contrast Comments: See Note; NOTES: [facility] Imaging Services [address] [place] [address] CTA Chest W/WO Contrast MR#: [id number] Acct: [id number] Name: LEYLA RIOJAS Rep #: [id number] : 1945 F 73 From: Mario Ohara MD PCP: Nelia Smith DO Status: [facility] CLI Study: CTA Chest W/WO Contrast Date of Exam: 09/20/18 Exam# [id number] Ordering Dr: Nelia Smith DO STUDY: CTA [...] Service support , CC: Nelia Smith DO Public Information Director: Signed Nelia Smith Work Phone: Start: 01-29-2018 End: 01-29-2018 12 lead ECG Comments: See Note; NOTES: [facility] Cardiovascular Services [address] [place] [address] 12 Lead EKG 01/25/181937 MR#: [id number] Acct: [id number] Name: LEYLA RIOJAS Rep #: [id number] : 1945 72 From: Ceasar Wagner MD [...] ST abnormality Abnormal ECG Confirmed by CEASAR WAGNER MD ([id number]), scientific publications editor TARA SERRANO ([id number]) on 01/29/2018 3:16:23 PM Referred By: LIZETH Confirmed By:CEASAR WAGNER MD 01/29/18 1516 Date Ceasar Wagner MD CC: Laura Alves MD; Nelia Pink Start: 01-25-2018 End: 01-25-2018 Emergency Department Summary Comments: See Note; NOTES: [facility] Medical Records Department [address] [place] [address] Emergency Department Summary 01/25/181937 MR#: [id number] Acct: [id number] Name: LEYLA RIOJAS Rep #: [id number] : 1945 72 From: Laura Alves MD PCP: Nelia Smith DO Status: [facility] ER - ER Visit Summary Date of [...] Impression: Diarrhea This note was generated with [employer] dictation software. It may contain incorrect words, spelling, and punctuation that were not noted in review of the chart prior to signing ED Disposition - Plan for ED Patient: Chief Complaint: GI Bleed Instructions: ED Diarrhea Viral Referrals: Nelia Smith, DO [Primary Care Provider] - What to do if you have Problems For any increased pain, shortness of breath, bleeding, nausea or vomiting, chest pain, or any unexpected problems, contact your Primary Care Provider. Call [facility] ([phone]) or report to the closest Emergency Room. Call 911 if necessary. 01/25/18 2228 <Electronically signed by Laura Alves MD> Date Laura Alves MD Cosigner Signature (If Indicated): Date CC: Nelia Brown Start: 01-25-2018 End: 01-25-2018 Discharge Instruction Comments: See Note; NOTES: [facility] Medical Records Department [address] [place] [address] Discharge Instruction 01/25/182223 MR#: [id number] Acct: [id number] Name: BEULAHLEYLA Hurt Rep #: [id number] : 1945 72 From: Laura Alves MD [...] your Primary Care Provider. Call [facility] ([phone]) or report to the closest Emergency Room. Call 911 if necessary. 01/25/182224 <Electronically signed by Laura Alves MD> Date Laura Alves MD Cosigner Signature (If Indicated): Date CC: Nelia Brown Start: 10-09-2017 End: 10-09-2017 Echocardiogram Complete Comments: See Note; NOTES: [facility] Cardiovascular Services [address] [place] [address] Echo Complete 10/08/17 1244 MR#: [id number] Acct: [id number] Name: LEYLA RIOJAS Rep #: [id number] : 1945 72 From: Zaki Dick MD Attending Dr: Nelia Smith DO Status: REG CLI Ordering Dr: Nelia Smith DO Date: 10/08/17 Location: [facility] Sex: F C Admitted: Reason For Study: ABN EKG Procedure This was a 2D Doppler, Color Flow transthoracic echocardiogram. Exam performed in department. Left Ventricle Normal size and thickness. The estimated ejection fraction is 65 %. Stage 2 diastolic dysfunction. No [...] to be 32 mmHg. Aortic Valve Normal aortic valve. Trisinus/trileaflet aortic valve. Pulmonic Valve Normal pulmonic valve. Great Vessels Normal aortic root. Normal arch. Normal inferior vena cava. Inferior vena cava collapse with sniff. Pericardium/Pleural No pericardial effusion. Medication 22 gauge I.V. [...] cm/sec Ao max P.7 mmHg LV V1 max P.0 mmHg TR max jeremiah: 259.4 cm/sec TR max P.9 mmHg Interpretation Summary The estimated ejection fraction is 65 %. Stage 2 diastolic dysfunction. Bubble contrast study negative for right to left interatrial shunt. Possible small PFO with L to R shunt, but negative bubble study. Trivial tricuspid valve insufficiency. Right ventricular systolic pressure estimated to be 32 mmHg. Compared to echo report dated 06/12/2014, no appreciable changes noted. Ordering Physician: Nelia Smith Referring Physician: Nelia Smith Performed By: Marcia Ruiz, GISEL, RVT 10/09/17 1136 Date Zaki Dick MD CC: Nelia Smith DO Date Dictated: 10/08/17 1244 Date Transcribed: 10/09/17 1136 Public Information Director: Signed Nelia Smith Work Phone: Start: 09-30-2017 End: 09-30-2017 Stress Report Comments: See Note; NOTES: [facility] Cardiovascular Services [address] [place] [address] MR#: [id number] Acct: [id number] Name: LEYLA RIOJAS Rep #: [id number] : 1945 72 From: Ceasar Wagner MD Primary Care: Zoraida REANelia Status: REG CLI Ordering Dr: Sex: F C Stress Test Report Exercise myocardial perfusion stress test. 72-year-old lady with a history of pain and abnormal EKG. Stress protocol: [...] 150 bpm which was 102% of the maximum predicted heart rate the maximum workload attained was 6.1 metabolic equivalents. The patient maintained sinus rhythm throughout the recording. At rest there were no ST or T-wave changes noted suggest ischemia. At peak exercise upsloping ST changes only were noted with no meet the criteria for ischemia. No clinical angina was noted test was terminated due to generalized fatigue and shortness of breath. Resting blood pressure was 140/82 with a peak blood pressure 194/88. Myocardial perfusion protocol: 11.5 mCi of technetium 99m sestamibi was injected at rest. The patient exercised for 4 minutes and 20 seconds. Standard Amrk protocol at peak exercise 33.8 mCi of [...] at a moderate workload. Mild functional aerobic impairment. Preserved ejection fraction. 09/30/1744 <Electronically signed by Ceasar Wagner MD> Date Ceasar Wagner MD CC: Nelia Smith DO Date Dictated: 09/30/17937 Date Transcribed: 09/30/17937 Public Information Director: [place] Signed Nelia Smith Start: 09-22-2017 End: 09-29-2017 Dexa Bone Density Study () Comments: See Note; NOTES: [facility] Imaging Services [address] [place] [address] Dexa Bone Density Study () MR#: [id number] Acct: [id number] Name: BEULAHLEYLA Licha Rep #: [id number] : 1945 F 72 From: Lazaro Abrams MD PCP: Nelia Smith DO Status: [facility] Study: Dexa Bone Density Study () Date of Exam: 09/22/17 Exam# [id number] Ordering Dr: Nelia Smith DO STUDY: DUAL [...] Total: g/cm2 (1.036) / T-score (0.2) / Z-score (1.9) Left Femoral Neck: g/cm2 (0.951) / T-score (-0.6) / Z-score (1.2) Right Femur Total: g/cm2 (1.024) / T-score (0.1) / Z-score (1.8) Right Femoral Neck: g/cm2 (0.907) / T-score (-0.9) / Z-score (0.9) The T-Scores on the most recent prior examination were: Lumbar Spine (L1-L4): There has been worsening of bone density since the previous examination. Left Femur Total: which represents a worsening of 1.4%. Right Femur Total: which represents an improvement of 3.3%. HPBD/Dexa Bone Density [...] follows: Mild -1 through -1.5 Moderate -1.6 through -2.0 Severe -2.1 through -2.4 The Z-score is the number of standard deviations above or below age-matched controls. A Z-score of less than -1.5 would be considered abnormal. References: 1. NIH Osteoporosis and Related Bone Diseases http://www.osteo.org 2. International Society for Clinical Densitometry http://www.iscd.org 3. National Osteoporosis Foundation http://www.nof.org Electronically Signed: Lazaro Abrams MD at 14:49 EST Tel [phone], Service support , CC: Nelia Smith DO Public Information Director: Signed Nelia Smith Work Phone: Start: 09-22-2017 End: 09-24-2017 SCREENING MAMM (CAD), BILAT Comments: See Note; NOTES: [facility] Imaging Services [address] [place] [address] SCREENING MAMM (CAD), BILAT MR#: [id number] Acct: [id number] Name: LEYLA RIOJAS Rep #: [id number] : 1945 F 72 From: Armen Smith MD PCP: Nelia Smith DO Status: REG CLI Study: SCREENING MAMM (CAD), BILAT Date of Exam: 09/22/17 Exam# [id number] Ordering Dr: Nelia Smith DO MAMMOGRAPHY - BILATERAL SCREENING REASON FOR EXAM: Female, 72 years old. Routine annual screening examination. PERTINENT HISTORY: Mother with breast cancer. Aunt with breast cancer. Status post prior bilateral excisional breast biopsies in 1998. TECHNIQUE: Digital bilateral breast tomosynthesis (3-D mammographic acquisition) in the CC and MLO projections. Synthesized 2-D images (C-View reconstruction from tomosynthesis acquisition) providing bilateral breast CC and MLO views. CAD: Full Field Digital Mammography with Computer Added Detection was performed. COMPARISON: August 15, 2016. FINDINGS: Breast Density: B - Scattered fibroglandular densities. There are no dominant masses or suspicious calcifications. There are scattered, typically benign-appearing calcifications. No other significant abnormalities are identified. HPBI/SCREENING MAMM (CAD), BILAT IMPRESSION: Stable bilateral screening mammogram. Yearly follow-up mammogram recommended. (A) ASSESSMENT CATEGORY: BIRADS Category 2: Benign. A letter regarding these results will be sent to the patient by the facility within 30 days. Approximately 10% of breast cancers are not detected by mammography. A normal mammogram should not delay biopsy of a clinically suspicious abnormality. [id number] Electronically Signed: Armen Smith MD at 12:16 EST , Service support , CC: Nelia Smith DO Public Information Director: Signed Nelia Smith Work Phone: Start: 08-24-2017 End: 2017 CTA Chest W/WO Contrast Comments: See Note; NOTES: [facility] Imaging Services [address] [place] [address] CTA Chest W/WO Contrast MR#: [id number] Acct: [id number] Name: LEYLA RIOJAS Rep #: [id number] : 1945 F 71 From: Mario Ohara MD PCP: Nelia Smith DO Status: [facility] CLI Study: CTA Chest W/WO Contrast Date of Exam: 08/24/17 Exam# [id number] Ordering Dr: Nelia Smith DO STUDY: CTA CHEST REASON FOR EXAM: Female, 71 [...] the pulmonary arteries to suggest pulmonary embolus. Again noted is a patent stent in the descending thoracic aorta. There is no evidence of endoleak. 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 This is decreased in size when compared with [...] granulomatous disease. Electronically Signed: Mario Ohara, at 19:15 EST Tel , Service support , CC: FLAVIA PATEL; Nelia Smith DO Public Information Director: Signed Nelia Smith Work Phone: Start: 05-25-2017 End: 05-25-2017 OT D/C of Non Returning Pt Comments: See Note; NOTES: [facility] Occupational Therapy [address] [place] [address] Fax REHABILITATION SERVICES DISCHARGE SUMMARY MR#: [id number] Acct: [id number] Name: LEYLA RIOJAS Rep #: [id number] : 1945 71 From: Keysha Anderson Referring : Jb Yepez DO Status: REG RCR Eval Date: Discharge Date: HP - Discharge Summary - Patient Information LEYLA RIOJAS was seen in my office for initial evaluation on 03/17/17. The following Plan of Care was established for this patient: Initial Frequency: 1-2x /Week Initial Duration: 2 week follow up Plan: Pt. is to schedule follow-up appointment ot ensure proper fit of brace and to ensure skin integrity. After next appointment she will be d/c'd. - Anticipated Interventions Anticipated Interventions: A/AAROM/PROM, Orthoses, Joint Protection/Energy Conservation, Ergonomic Education, ADL Training, Caregiver Training, Home Program This patient was last seen in our office 03/30/17. Pertinent comments regarding their Occupational therapy will appear below: Pt. seen 2 times. She was made splint and was to schedule follow-up splint appointment to ensure proper fit. No appointment was made for follow up and she will be d/c'd at this time. Pt. measurements taken upon last appointment including the following: rampman R 37, L 41, lateral R 8, L 12, 3 jaw R 5, L 6, and tip pinch R 5, L 5. At this point I will be discontinuing this patient from occupational therapy. I would be happy to see this patient again in the future if found appropriate by the physician. Thank you! Keysha Anderson <Electronically signed by Keysha Anderson > 05/25/17 0829 CC: Nelia Smith DO; Jb Yepez DO KMB Signed Nelia Smith Start: 04-16-2017 End: 04-16-2017 Emergency Department Summary Comments: See Note; NOTES: [facility] Medical Records Department [address] [place] [address] Emergency Department Summary 04/16/17 0216 MR#: [id number] Acct: [id number] Name: LEYLA RIOJAS Rep #: [id number] : 1945 71 From: Eugenia Armstrong MD PCP: Nelia Smith DO Status: DEP ER - ER Visit Summary Date of Service: 04/16/17 Chief Complaint: Fall History of Present Illness: The patient is a 71 F [...] examination reveals some abrasions on the left buddhism. Pupils are equal and reactive. No C-spine tenderness is noted. Heart is regular rate and rhythm. Lungs are clear with good air movement throughout. She has reproducible tenderness in the left lateral ribs. No crepitus is noted. Abdomen is soft and nontender. Extremity examination was abrasions and ecchymosis to the bilateral hands. There is a small abrasion on the left knee. She has full range of motion throughout. Test Results: Left hand x-ray shows an acute nondisplaced fracture of the left radial styloid. Right hand x-ray is unremarkable. CT head shows no acute intracranial abnormalities. CT the chest shows no rib fractures. Stent graft is in good position. Emergency Department Course and Treatment: Patient declined pain medication here. She was given a tetanus update. Treatment Plan: Velcro wrist splint is placed on the left wrist. Patient will follow up with primary care physician. Disposition: Home Impression: 1. Mechanical fall 2. Nondisplaced left radial styloid fracture 3. Left rib contusion ED Disposition - Plan for ED Patient: Disposition: Home or Assisted Living Chief Complaint: Fall Instructions: ED Mechanical Fall, ED Fx Wrist General, ED Splint Care Velcro Referrals: Nelia Smith DO [Primary Care Provider] - 1 Week What to do if you have Problems For any increased pain, shortness of breath, bleeding, nausea or vomiting, chest pain, or any unexpected problems, contact your Primary Care Provider. Call [facility] ([phone]) or report to the closest Emergency Room. Call 911 if necessary. 04/16/17 0218 <Electronically signed by Eugenia Armstrong MD> Date Eugenia Armstrong MD Cosigner Signature (If Indicated): Date CC: Nelia Brown Start: 04-15-2017 End: 04-15-2017 Discharge Instruction Comments: See Note; NOTES: [facility] Medical Records Department [address] [place] [address] Discharge Instruction 04/15/172026 MR#: [id number] Acct: [id number] Name: LEYLA RIOJAS Rep #: [id number] : 1945 71 From: Eugenia Armstrong MD PCP: Nelia Smith DO Status: REG ER ED Disposition - Plan for ED Patient: Disposition: Home or Assisted Living Chief Complaint: Fall Instructions: ED Mechanical Fall, ED Fx Wrist General, ED Splint Care Velcro Referrals: Nelia Smith DO [Primary Care Provider] - 1 Week What to do if you have Problems For any increased pain, shortness of breath, bleeding, nausea or vomiting, chest pain, or any unexpected problems, contact your Primary Care Provider. Call [facility] ([phone]) or report to the closest Emergency Room. Call 911 if necessary. 04/15/172027 <Electronically signed by Eugenia Armstrong MD> Date Eugenia Armstrong MD Cosigner Signature (If Indicated): Date CC: Nelia Brown Start: 04-15-2017 End: 04-15-2017 Brain/Head without Contrast Comments: See Note; NOTES: [facility] Imaging Services [address] [place] [address] Verdana 4d Brain/Head without Contrast MR#: [id number] Acct: [id number] Name: LEYLA RIOJAS Rep #: [id number] : 1945 F 71 From: Eugenia Pabon MD PCP: Zoraida DO,Nelia Status: REG ER Study: Brain/Head without Contrast Date of Exam: 04/15/17 Exam# [id number] Ordering Dr: Eugenia Armstrong MD STUDY: CT BRAIN WITHOUT CONTRAST REASON FOR EXAM: Female, 71 years old. Head injury RADIATION DOSAGE (If Supplied By Facility): CTDIvol = ( 44.99 ) mGy, DLP = ( 779.24 ) mGycm TECHNIQUE: Transaxial CT imaging of the brain was [...] without Contrast IMPRESSION: No acute intracranial abnormalities. There are mild age-related white matter findings. Electronically Signed: Eugenia Pabon MD at 18:55 EDT Tel [phone], Service support , CC: Eugenia Armstrong MD; Nelia Smith DO Public Information Director: Signed Nelia Smith Start: 04-15-2017 End: 04-15-2017 Chest without Contrast Comments: See Note; NOTES: [facility] Imaging Services [address] [place] [address] Verdana 4d Chest without Contrast MR#: [id number] Acct: [id number] Name: LEYLA RIOJAS Rep #: [id number] : 1945 F 71 From: Eugenia Pabon MD PCP: Nelia Smith DO Status: REG ER Study: Chest without Contrast Date of Exam: 04/15/17 Exam# [id number] Ordering Dr: Eugenia Armstrong MD STUDY: CT CHEST WITHOUT CONTRAST REASON FOR EXAM: Female, 71 years old. Pain after fall RADIATION DOSAGE (If Supplied By Facility): CTDIvol = ( 17.66 ) mGy, DLP = ( 692.78 ) mGycm TECHNIQUE: Transaxial imaging was performed without the administration of intravenous contrast material. Multiplanar coronal and sagittal images were reformatted. Individualized dose optimization techniques were used for this CT. COMPARISON: CTA chest dated January 25, 2015 FINDINGS: There is biapical scarring. There are stable small areas of scarring in the periphery of both lungs. There is a stable calcified granuloma in the periphery of the right lower lobe. There is minimal atelectasis in both lower lobes. There is no demonstrated pleural abnormality. Normal heart and pericardium. Normal mediastinum. There are calcified lymph nodes in the right hilum. Normal unenhanced pulmonary arteries. There is a stent graft in the distal descending thoracic aorta. There is dilatation of the aorta above the stent graft measuring up to 3.8 cm in diameter. This previously measured up to 3.1 cm in diameter. There are moderate degenerative changes in the spine. No fractures are seen. There are calcified granulomas scattered in the liver and spleen. 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 There is a 2 mm nonobstructing stone in the lower pole of the right kidney. CT/Chest without Contrast IMPRESSION: No acute abnormalities are seen in the chest. There are stable chronic findings throughout the lungs. There is no pleural effusion or significant lymphadenopathy. A stent graft is present in the descending thoracic aorta. There is mild dilatation of the aorta above the stent graft which is minimally increased from the prior study. Electronically Signed: Eugenia Pabon MD at 19:26 EDT Tel [phone], Service support , CC: Eugenia Armstrong MD; Nelia Smith DO Public Information Director: Signed Nelia Smith Start: 04-15-2017 End: 04-15-2017 Hand Min 3 Views Comments: See Note; NOTES: [facility] Imaging Services [address] [place] [address] Rickdajh 4d Hand Min 3 Views MR#: [id number] Acct: [id number] Name: LEYLA RIOJAS Rep #: [id number] : 1945 F 71 From: Eugenia Pabon MD PCP: Nelia Smith DO Status: REG ER Study: Hand Min 3 Views Date of Exam: 04/15/17 Exam# [id number] Ordering Dr: Eugenia Armstrong MD STUDY: X-RAY - LEFT HAND REASON FOR EXAM: Female, 71 years old. Injury and pain TECHNIQUE: Three view(s) of the hand. COMPARISON: None. FINDINGS: There is a lucency in the radial styloid. Normal distal radioulnar joint. Normal visualized carpal bones. Normal carpal articulations Normal carpometacarpal articulation of the thumb. Normal second through fifth carpometacarpal joints. Normal [...] fifth fingers. There is mild soft tissue swelling. RAD/Hand Min 3 Views IMPRESSION: Acute nondisplaced fracture in the left radial styloid. Electronically Signed: Eugenia Pabon MD at 19:09 EDT Tel [phone], Service support , CC: Eugenia Armstrong MD; Nelia Smith DO Public Information Director: Signed Nelia Smith Start: 03-27-2017 End: 03-27-2017 OT General Evaluation Comments: See Note; NOTES: [facility] Occupational Therapy [facility] [address] [place], [place] [address] Fax REHABILITATION SERVICES INITIAL EVALUATION MR#: [id number] Acct: [id number] Name: LEYLA RIOJAS Rep #: [id number] : 1945 71 From: Keysha Anderson Referring Dr.: Jb Yepez DO Status: REG RCR Insurance: MEDICARE PART A B Eval Date: ANTHEM Patient's Visit Information LEYLA RIOJAS is a 71 year old F, referred to Occupational Therapy by Jb Yepez,, with a diagnosis of Primary OA of CMC of L hand. Date of Evaluation: 03/17/17 Occupational Therapist: Keysha Anderson - Subjective Subjective: Pt. Leyla, noted that she has increased pain in L thumb although R hand dominant. SHe was recieving PT at [facility] prior and noted it only aggrevated symptoms . - Pain Left Wrist 6 Pain Intensity Range: 8 - ROM ROM Comments: ROM assessment to be completed at later date as computer crashed and values were lost. - Strength Forensics Team Director: R L Lateral Pinch: R L Tripod Pinch: R L Tip-to-Tip Pinch: R L Strength Comments: Strength assessment to be completed at later date as computer crashed and values were lost. - DASH-Disabilities of Arm, Shoulder AND Hand DASH Sum: 45 - Goals Goal:: Pt. to be mod I to understand and implement Jt protection and energy conservation techniques 4/5 [id number]% of the time to increase (I) and decrease pain by time of d/c. Goal:: Pt. to demo understanding and correct don/doff cycle of L thumb spica splint to decrease pain and increase (I) for 80% of opportunities to promote (I) in ADL/IADLS by time of d/c. - Rehabilitation General Assessment: Pt.Leyla, is s/p OA of L CMC area. Values of ROM and strength were lost secondary to computer crashing but WFL upon evaluation. She was evalaed for CMC thumb spica and is to return in two weeks for spint check in which measurements will be retaken. Rehabilitation Potential: Good - Anticipated Interventions Anticipated Interventions: A/AAROM/PROM, Orthoses, Joint Protection/Energy Conservation, Ergonomic Education, ADL Training, Caregiver Training, Home Program - Visit Plan Frequency: 1-2x /Week Duration: 2 week follow up General Plan: Seen for splint fabrication only. She is to return in 1-2 weeks for splint adjustment. TEXT: Thank you for the opportunity to evaluate your patient. For Medicare and Medicare HMO plans, please review the plan of care and approve it. It will need to be FAXED BACK to us at [phone] for Medicare purposes. Please let me know if there are questions or concerns regarding this plan of care. Physician Signature: ___Date: <Electronically signed by Keyhsa Anderson > 03/27/17 165 CC: Nelia Smith DO; Jb Yepez DO KMB Signed For Medicare only, by signing this I certify the plan of care. Physicians Signature Date Nelia Smith Start: 02-05-2017 End: 02-05-2017 NCS and/or EMG Patient Comments: See Note; NOTES: [facility] Pulmonary Services/Neurology [address] [place] [address] NCS and/or EMG Patient MR#: [id number] Acct: [id number] Name: LEYLA RIOJAS Licha Rep #: [id number] : 1945 71 From: Anuel Day Referring Dr: Jb Yepez DO Status: REG CLI Ordering Dr: Jb Yepez DO Date: 02/04/17 Location: PSN Sex: F C DATE OF SERVICE: 02/04/2017 REFERRING BY: Dr. Yepez. HISTORY OF PRESENT ILLNESS: The patient is a 71-year-old female with pain, numbness and tingling in both hands. ELECTRODIAGNOSTIC FINDINGS: Mild slowing of the left more than the right ulnar sensory wrist latencies. No ulnar motor slowing or amplitude loss is noted, however. No significant median sensory or motor slowing is noted and normal radial sensory studies today. The EMG did not reveal any membrane irritability or motor unit changes in areas tested, both arms. 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 This is based on the ulnar sensory slowing at the wrist. However, the patient is not describing any significant clinical symptoms referred to the ulnar territory, so this is more of an electrical incidental finding. No evidence today of carpal tunnel syndrome, polyneuropathy, cervical root problem or brachial plexus lesion. Consider wrist and hand degenerative changes, tendonitis, and other causes of pain and paresthesias in the absence of significant carpal tunnel syndrome. Some individuals have early mild carpal tunnel syndrome with negative testing i.e. false negative, which occurs less than 5% of the time with testing. She will follow up with Dr. Yepez for further review. Thank you for this referral. Anuel Day MD T: NTS JOB: [id number] 02/05/[birth year] <Electronically signed by Anuel Day > Date Anuel Day CC: Nelia Smith DO; ANUEL DAY; Jb Yepez DO Date Dictated: 02/04/1704 Date Transcribed: 02/04/17903 Public Information Director: Signed Nelia Smith Start: 12-31-2016 End: 12-31-2016 Venous Duplex Upper Extremity Comments: See Note; NOTES: [facility] Cardiovascular Services [address] [place] [address] Venous Duplex US, Unilateral 12/30/16 1328 MR#: [id number] Acct: [id number] Name: LEYLA RIOJAS Rep #: [id number] : 1945 71 From: Jose Pardo MD Attending Dr: Jb Yepez DO Status: REG CLI Ordering Dr: Jb Yepez DO Date: 12/30/16 Location: [facility] Sex: F C Admitted: Reason For Study: pain Left Proximal Left jugular vein is spontaneous, widely patent, phasic, with no intraluminal echogenicity noted. Left subclavian vein is spontaneous, widely patent, phasic, with no intraluminal echogenicity noted. Left Arm Left axillary vein is spontaneous, patent, phasic, competent, compressible and demonstrates augmentation. Left brachial vein is compressible. Left cephalic vein is compressible. Left basilic vein is compressible. Left Lower Arm Left radial vein is compressible. Left ulnar vein is compressible. Prelim to Dr. Yepez. < Interpretation Summary Deep veins of the left upper extremity are patent and compressible segmentally. There is no evidence of deep vein thrombosis. The superficial veins of the left upper extremity, the basilic and cephalic veins, are patent and compressible. There is no evidence of left upper extremity superficial thrombophlebitis involving the veins imaged. Ordering Physician: Jb Yepez Performed By: Robb Reina, RVT 12/31/16 0634 Date Jose Pardo MD CC: Nelia Smith DO; Jb Yepez DO Date Dictated: 12/30/16 1328 Date Transcribed: 12/31/16633 Public Information Director: Signed Nelia Smith Start: 10-20-2016 End: 10-21-2016 Chest PA and Lateral Comments: See Note; NOTES: [facility] Imaging Services [address] [place] [address] Rickdana 4d Chest PA and Lateral MR#: [id number] Acct: [id number] Name: LEYLA RIOJAS Rep #: [id number] : 1945 F 71 From: Zander Newell MD PCP: Nelia Smith DO Status: REG CLI Study: Chest PA and Lateral Date of Exam: 10/20/16 Exam# [id number] Ordering Dr: Nelia Smith DO STUDY: X-RAY CHEST REASON FOR EXAM: Female, 71 years old. Cough and congestion x2 weeks TECHNIQUE: PA and lateral views of the chest. COMPARISON: 01/25/2015 FINDINGS: Note is made of an apparent endoluminal stent graft traversing the majority of the descending thoracic aorta, unchanged. The lungs are clear and expanded. Stability is seen on a calcified granuloma in the peripheral right lower lobe. There [...] at 3:52 EST Tel , Service support [phone], CC: Nelia Smith DO Public Information Director: Signed Nelia Smith Work Phone: Start: 08-15-2016 End: 08-15-2016 Bilat Scrn Digital AND CAD Comments: See Note; NOTES: [facility] Imaging Services [address] [place] [address] Rickdajh 4d Bilat Scrn Digital AND CAD MR#: [id number] Acct: [id number] Name: LEYLA RIOJAS Rep #: [id number] : 1945 F 70 From: Lazaro Abrams MD PCP: Nelia Smith DO Status: REG CLI Study: Bilat Scrn Digital AND CAD Date of Exam: 08/15/16 Exam# [id number] Ordering Dr: Nelia Smith DO MAMMOGRAPHY - BILATERAL SCREENING REASON FOR EXAM: Female, 70 years old. Routine annual screening examination. PERTINENT HISTORY: Mother with breast cancer. Aunt with breast cancer. History of prior bilateral excisional breast biopsies. TECHNIQUE: Digital bilateral breast claudia (3D mammographic acquisition) in the CC and [...] no significant change since the prior study. BI/Bilat Scrn Digital AND CAD IMPRESSION: Stable bilateral screening mammogram. Yearly follow-up mammogram recommended. (A) ASSESSMENT CATEGORY: BIRADS Category 1: Negative. A letter regarding these results will be sent to the patient by the facility within 30 days. Approximately 10% of breast cancers are not detected by mammography. A normal mammogram should not delay biopsy of a clinically suspicious abnormality. [id number] Electronically Signed: Lazaro Abrams MD at 9:44 EST Tel [phone], Service support [phone], CC: Nelia Smith DO Public Information Director: Signed Nelia Smith Work Phone: Start: 04-22-2016 End: 04-22-2016 Venous Duplex Upper Extremity Comments: See Note; NOTES: [facility] Cardiovascular Services [address] [place] [address] Venous Duplex US - Orlin Extrem 04/22/16 1401 MR#: [id number] Acct: [id number] Name: LEYLA RIOJAS Rep #: [id number] : 1945 70 From: Jose Pardo MD [...] is compressible. Left axillary vein is spontaneous, patent, Right ulnar vein is compressible. phasic, competent, compressible and Right Arm demonstrates augmentation. Right axillary vein is spontaneous, patent, Left brachial vein is compressible. phasic, competent, compressible and Bright intraluminal echoes consistent with [...] compressible. Left ulnar vein is compressible. < Patient Safety Prelim sent to Dr. Smith. Interpretation Summary Deep veins of the upper extremities are bilaterally patent and compressible segmentally. There is no evidence of deep vein thrombosis on either side. Chronic superficial thrombophlebitis is noted in a short segment of the right basilic vein. The right cephalic vein is patent and compressible. Chronic superficial thrombophlebitis and chronic vein wall thickening are noted in the left basilic and cephalic veins. Ordering Physician: Nelia Smith Referring Physician: Nelia Smith Performed By: Lorenza Almonte, GISEL, RVT 04/22/16 1631 Date Jose Pardo MD CC: Nelia Smith DO Date Dictated: 04/22/16 1401 Date Transcribed: 04/22/16 1631 Public Information Director: Signed Nelia Smith Work Phone: Start: 01-10-2016 End: 01-10-2016 Venous Duplex Upper Extremity Comments: See Note; NOTES: [facility] Cardiovascular Services [address] [place] [address] Venous Duplex US - Orlin Extrem 01/10/16 1353 MR#: [id number] Acct: [id number] Name: LEYLA RIOJAS Rep #: [id number] : 1945 70 From: Jose Pardo MD Attending Dr: Nelia Smith DO Status: REG I Ordering Dr: Nelia Smith DO Date: 01/10/16 [...] is compressible. Left axillary vein is spontaneous, patent, Right ulnar vein is compressible. phasic, competent, compressible and Right Arm demonstrates augmentation. Right axillary vein is spontaneous, patent, Left brachial vein is compressible. phasic, competent, compressible and Cephalic vein is non-compressible from wrist demonstrates augmentation. to mid upper arm. Right brachial vein is compressible. Basilic vein is non-compressible from Right cephalic vein is compressible. axillary/basilic junction to antecubital Basilic vein and median cubital vein are non space. Multiple thrombosed branches noted. -compressible. Does not extend into deep Thrombus does not extend into deep system. system. Left Lower Arm Left radial vein is compressible. Left ulnar vein is compressible. < Interpretation Summary Deep veins of the upper extremities are bilaterally patent and compressible segmentally. There is no evidence of deep vein thrombosis on either side. Acute superficial thrombophlebitis is noted in the right basilic vein. Acute superficial thrombophlebitis is noted in the right median cubital vein. The right cephalic vein is patent and compressible. Acute superficial thrombophlebitis is noted in the left basilic vein from the axillary-basilic junction to the left antecubital space. Acute superficial thrombophlebitis is noted involving multiple superficial veins of the left upper extremity. Acute superficial thrombophlebitis is noted in the left cephalic vein from the wrist to the mid-upper arm. There has been no significant change from recent prior studies. Ordering Physician: Nelia Smith Performed By: Ethel Calles RVT 01/10/162119 Date Jose Pardo MD CC: Nelia Smith DO Date Dictated: 01/10/16 1353 Date Transcribed: 01/10/162117 Public Information Director: Signed Nelia Smith Work Phone: Start: 12-25-2015 End: 12-25-2015 Venous Duplex Upper Extremity Comments: See Note; NOTES: [facility] Cardiovascular Services [address] [place] [address] Venous Duplex US, Unilateral 12/25/15 0857 MR#: [id number] Acct: [id number] Name: LEYLA RIOJAS Rep #: [id number] : 1945 70 From: Jose Pardo MD Attending Dr: Nelia Smith DO Status: REG CLI Ordering Dr: Nelia Smith DO Date: 12/25/15 Location: [facility] Sex: F C Admitted: Reason For Study: pain, R60.0,I82.622 Left Proximal Left jugular vein is spontaneous, widely patent, phasic, with no intraluminal echogenicity noted. Left subclavian vein is spontaneous, widely patent, phasic, with no intraluminal echogenicity noted. Left Arm Left axillary vein is spontaneous, patent, phasic, competent, compressible and demonstrates augmentation. Left brachial vein is compressible. Cephalic V is dilated and noncompressible from the wrist to mid upper arm. Basilic V is dilated and noncompressible from the axillary/basilic junction to antecubital space. Does not extend into the deep system. Multiple thrombosed superficial branches. No significant change from previous study done 12/20/2015. Left Lower Arm Left radial vein is compressible. Left ulnar vein is compressible. Prelim called to [facility] nurses line voicemail. < Interpretation Summary [...] Acute superficial thrombophlebitis is noted in multiple superficial venous branches in the left upper extremity. There has been no significant change since a prior study on 12/20/2015. Ordering Physician: Nelia Smith Performed By: Robb Reina RVRuss 12/25/15 1320 Date Jose Pardo MD CC: Nelia Smith DO Date Dictated: 12/25/15 0857 Date Transcribed: 12/25/15 1320 Public Information Director: Signed Nelia Smith Work Phone: Start: 12-20-2015 End: 12-20-2015 Venous Duplex Upper Extremity Comments: See Note; NOTES: [facility] Cardiovascular Services [address] [place] [address] Venous Duplex US, Unilateral 12/20/15 1319 MR#: [id number] Acct: [id number] Name: LEYLA RIOJAS Rep #: [id number] : 1945 70 From: Jose Pardo MD [...] compressible. Rt Basilic vein and Median cubital vein are dilated and non-compressible. Thrombus does not extend into deep system. < Interpretation Summary Deep veins of the right upper extremity are patent and compressible segmentally. There is no evidence of deep vein thrombosis. Acute superficial thrombophlebitis is noted in the right basilic vein, but does not extend into the deep venous system. Acute superficial thrombophlebitis is noted in the right median cubital vein. The right cephalic vein is patent and compressible. Ordering Physician: Nelia Smith Performed By: Ethel Calles RVT 12/20/15 2634 Date Jose Pardo MD CC: Nelia Smith DO Date Dictated: 12/20/15 1319 Date Transcribed: 12/20/152258 Public Information Director: Signed Nelia Smith Work Phone: Start: 12-18-2015 End: 12-18-2015 Venous Duplex Upper Extremity Comments: See Note; NOTES: [facility] Cardiovascular Services [address] [place] [address] Venous Duplex US, Unilateral 12/18/15 0719 MR#: [id number] Acct: [id number] Name: LEYLA RIOJAS Rep #: [id number] : 1945 70 From: Jose Pardo MD Attending Dr: Nelia Smith DO Status: REG CLI Ordering Dr: Nelia mSith DO Date: 12/18/15 Location: [facility] Sex: F C Admitted: Reason For Study: LUE pain Left Proximal Left jugular vein is spontaneous, widely patent, phasic, with no intraluminal echogenicity noted. Left subclavian vein is spontaneous, widely patent, phasic, with no intraluminal echogenicity noted. Left Arm Left axillary vein is spontaneous, patent, phasic, competent, compressible and demonstrates augmentation. Left brachial vein is compressible. Lt Cephalic [...] MD CC: Nelia Smith DO Date Dictated: 12/18/15718 Date Transcribed: 12/18/152210 Public Information Director: Signed Nelia Zoraida Work Phone: Start: 12-07-2015 End: 12-07-2015 Abdomen/Pelvis W IV Cont ONLY Comments: See Note; NOTES: [facility] Imaging Services [address] [place] [address] Verdana 4d Abdomen/Pelvis W IV Cont ONLY MR#: [id number] Acct: [id number] Name: BEULAHLEYLA Licha Rep #: [id number] : 1945 F 70 From: Lazaro Abrams MD PCP: Nelia Smith DO Status: REG ER Study: Abdomen/Pelvis W IV Cont ONLY Date of Exam: 12/07/15 Exam# [id number] Ordering Dr: Bart Denise MD STUDY: CT ABDOMEN AND PELVIS WITH CONTRAST REASON FOR EXAM: Female, 70 years old. Rectal bleeding. History of ulcerative colitis. RADIATION DOSAGE (If Supplied By Facility): CTDIvol = ( 21.24 ) mGy, DLP = ( 1042.74 ) mGycm TECHNIQUE: Transaxial images were obtained from the dome of the diaphragm to the symphysis pubis without oral contrast. 100mL ml of Isovue 370 contrast was administered. Sagittal and coronal images were reconstructed. COMPARISON: Comparison is made with prior study dated August 30, 2015. FINDINGS: Stable 6.6 mm calcified granuloma in the right lower lobe. Mild scarring in the posterior medial segment of the left lower lobe. The visualized portions of the heart are within normal limits. There is decreased attenuation of the liver consistent with steatosis. Mild hepatomegaly. Normal gallbladder and extrahepatic biliary system. Normal spleen. Normal pancreas. Normal bilateral adrenal glands. Stable small right renal angiomyolipoma. Normal left kidney. There is a retroaortic left renal vein. Normal visualized stomach. Normal small intestine. There is diffuse edematous changes and thickening of the left hemicolon from the splenic flexure down to the rectum with increased markings in the surrounding fat. This is in keeping with colitis. The patient is status post appendectomy. Once again, there is evidence of an endoluminal stent in the distal thoracic and proximal abdominal aorta. Mural thrombus is seen. This is unchanged. Normal inferior vena cava. Normal retroperitoneum. Small amount of air is seen within the urinary bladder. A colovesical fistula should be ruled out. There is absence of the uterus consistent with a prior hysterectomy. There is a small umbilical hernia containing fat. Normal osseous structures. IMPRESSION: Findings interval colitis of the left hemicolon with increased markings in the surrounding fat. Small amount of air is seen along the anterior aspect of the urinary bladder. A colovesical fistula should be ruled out if there was no [place] catheter manipulation. Electronically Signed: Lazaro Abrams MD at 9:28 EST Tel [phone], Service support [phone], CC: Nelia Smith DO; Bart Denise MD Public Information Director: Signed Nelia Smith Start: 08-30-2015 End: 08-30-2015 Abdomen/Pelvis WITH Contrast Comments: See Note; NOTES: [facility] Imaging Services [address] [place] [address] Verdana 4d Abdomen/Pelvis WITH Contrast MR#: [id number] Acct: [id number] Name: LEYLA RIOJAS Rep #: [id number] : 1945 F 70 From: Lazaro Abrams MD PCP: Nelia Smith DO Status: REG CLI Study: Abdomen/Pelvis WITH Contrast Date of Exam: 08/30/15 Exam# [id number] Ordering Dr: Nelia Smith DO STUDY: CT ABDOMEN AND PELVIS WITH CONTRAST REASON FOR EXAM: Female, 70 years old. 3 month history of left lower quadrant pain. RADIATION DOSAGE (If Supplied By Facility): CTDIvol = ( 18.22 ) mGy, DLP = ( 1693.44 ) mGycm TECHNIQUE: Transaxial images were obtained from the dome of the diaphragm to the symphysis pubis with oral contrast. 100ML ml of Isovue 300 contrast was administered. Sagittal and coronal images were reconstructed. Delayed imaging was obtained as well. COMPARISON: Comparison is made with prior study dated October 09, 2014. FINDINGS: The 7 mm calcified granuloma is seen in the right lower lobe. Focal linear scarring is seen in the anterior aspect of the right pleural. The visualized portions of the heart are within normal limits. There is decreased attenuation of the liver consistent with steatosis. Normal gallbladder and extrahepatic biliary system. There are multiple benign calcified granulomata of the spleen. Normal pancreas. Normal bilateral adrenal glands. A 1 cm angiomyolipoma is seen along the posterior midportion of the right kidney. Normal left kidney. Normal visualized stomach. Normal small intestine. There are multiple colonic diverticula consistent with diverticulosis. The patient is status post appendectomy. Since prior study, a covered aortic stent graft is seen in the distal thoracic and proximal abdominal aorta. The patient has a history of prior dissection. Small amount of thrombus is seen along the left lateral wall. Normal inferior vena cava. Normal retroperitoneum. Normal urinary bladder. There is absence of the uterus consistent with a prior hysterectomy. There is a small umbilical hernia containing fat. There are mild degenerative changes of the visualized lumbar spine. IMPRESSION: Status post aortic stent grafting of the distal thoracic and proximal abdominal aorta with small amount of mural thrombus. Fatty infiltration of the liver. Sigmoid diverticulosis. Electronically Signed: Lazaro Abrams MD at 11:28 EST Tel [phone], Service support [phone], CC: Nelia Smith DO Public Information Director: Signed Nelia Smith Work Phone: Start: 08-14-2015 End: 08-14-2015 Bilat Scrn Digital AND CAD Comments: See Note; NOTES: [facility] Imaging Services [address] [place] [address] Verdana 4d Bilat Scrn Digital AND CAD MR#: [id number] Acct: [id number] Name: LEYLA RIOJAS Rep #: [id number] : 1945 F 69 From: Lazaro Abrams MD PCP: Nelia Smith DO Status: REG CLI Study: Bilat Scrn Digital AND CAD Date of Exam: 08/14/15 Exam# [id number] Ordering Dr: Nelia Smith DO MAMMOGRAPHY - [...] follow-up recommended. (A) ASSESSMENT CATEGORY: BIRADS Category 1: Negative. A letter regarding these results will be sent to the patient by the facility within 30 days. Approximately 10% of breast cancers are not detected by mammography. A normal mammogram should not delay biopsy of a clinically suspicious abnormality. Electronically Signed: Lazaro Abrams MD at 9:38 EST Tel [phone], Service support [phone], CC: Nelia Smith DO Public Information Director: Signed Nelia Smith Work Phone: Start: 08-14-2015 End: 08-14-2015 Dexa Bone Density Study (HP) Comments: See Note; NOTES: [facility] Imaging Services [address] [place] [address] Verdana 4d Dexa Bone Density Study (HP) MR#: [id number] Acct: [id number] Name: LEYLA RIOJAS Rep #: [id number] : 1945 F 69 From: Lazaro Abrams MD PCP: Nelia Smith DO Status: REG CLI Study: Dexa Bone Density Study (HP) Date of Exam: 08/14/15 Exam# [id number] Ordering Dr: Nelia Smith DO STUDY: DUAL [...] Total: g/cm2 (1.051) / T-score (0.3) / Z-score (1.9) Left Femoral Neck: g/cm2 (0.960) / [...] follows: Mild -1 through -1.5 Moderate -1.6 through -2.0 Severe -2.1 through -2.4 The Z-score is the number of standard deviations above or below age-matched controls. A Z-score of less than -1.5 would be considered abnormal. References: 1. NIH Osteoporosis and Related Bone Diseases http://www.osteo.org 2. International Society for Clinical Densitometry http://www.iscd.org 3. National Osteoporosis Foundation http://www.nof.org Electronically Signed: Lazaro Abrams MD at 15:21 EST Tel [phone], Service support [phone], CC: Nelia Smith DO Public Information Director: Signed Nelia Smith Work Phone: Start: 06-01-2015 End: 06-01-2015 Spmtry w/vc expiratory nita w/wo mxml vol vntj _ Albina Rodriguez Work Phone: Start: 06-01-2015 End: 06-01-2015 Ecg routine ecg w/least 12 lds w/i&r [MEASUREMENTS ANALYSIS] Date of Test: 06/01/2015 11:38:22; Heart Rate: 69; [place] Interval: 126; QRS: 84; QT Interval: 388; Corrected QT Interval (QTc): 403; P Wave [place]: 43; QRS Wave [place]: 48; T Wave [place]: 38; Blood Pressure: 132/86 [ECG DIAGNOSTIC STATEMENTS] Date of Test: 06/01/2015 11:38:22; Summary: Sinus Rhythm WITHIN NORMAL LIMITS Albina Rodriguez Work Phone: Start: 02-05-2015 End: 02-05-2015 Knee 4 or More Views Comments: See Note; NOTES: [facility] Imaging Services [address] [place] [address] Radiology Report MR#: [id number] Acct: [id number] Name: LEYLA RIOJAS Rep #: [id number] : 1945 F 69 From: Slick Byrd DO PCP: Nelia Smith DO Status: REG CLI Study: Knee 4 or More Views Date of Exam: 02/05/15 Exam# [id number] Ordering Dr: Nelia Smith DO STUDY: X-RAY - RIGHT KNEE REASON FOR EXAM: Female, 69 years old. Lateral knee pain without trauma. TECHNIQUE: 4 view(s) of the knee. COMPARISON: None. FINDINGS: Normal visualized distal femur. Normal visualized proximal tibia and fibula. Normal proximal tibiofibular articulation. There is no acute fracture, dislocation or destructive osseous pathology. Normal medial femorotibial compartment. Normal lateral femorotibial compartment. Normal patellofemoral articulation. There is no demonstrated joint effusion. The soft tissue structures are unremarkable. IMPRESSION: Normal x-ray examination of the knee. Electronically Signed: Slick Byrd DO at 16:07 EDT Tel [phone], Service support [phone], RAD/Knee 4 or More Views IMPRESSION: Normal x-ray examination of the knee. Electronically Signed: Slick Byrd DO at 16:07 EDT Tel [phone], Service support [phone], CC: Nelia Smith DO Public Information Director: Signed Nelia Smith Work Phone: Start: 01-29-2015 End: 01-29-2015 12 lead ECG Comments: See Note; NOTES: [facility] Cardiovascular Services [address] [place] [address] 12 Lead EKG 01/25/152308 MR#: [id number] Acct: [id number] Name: LEYLA RIOJAS Rep #: [id number] : 1945 69 From: Ceasar Wagner MD Attending Dr: Status: DEP ER Ordering Dr: Tanmay Michel MD Date: 01/25/15 Location: ED Sex: F C Admitted: Test Reason : CP Blood Pressure : / mmHG Vent. Rate : 088 BPM Atrial Rate : 088 BPM P-R Int : 134 ms QRS Dur : 064 ms QT Int : 346 ms P-R-T Axes : 083 062 056 degrees QTc Int : 418 ms Normal sinus rhythm Septal infarct , age undetermined Abnormal ECG Confirmed by BOOGIE GUNTER, CEASAR ([id number]), scientific publications editor TARA SERRANO ([id number]) on 01/29/2015 1: 50:32 PM Referred By: MEHREEN Confirmed By:CEASAR WAGNER MD 01/29/15 1350 Date Ceasar Wagner MD CC: Nelia Smith DO Date Dictated: 01/25/152308 Date Transcribed: 01/25/152308 Public Information Director: Signed Nelia Smith Start: 01-26-2015 End: 01-26-2015 Discharge Instruction Comments: See Note; NOTES: [facility] Medical Records Department [address] [place] [address] Discharge Instruction 01/26/15 0112 MR#: [id number] Acct: [id number] Name: LEYLA RIOJAS Rep #: [id number] : 1945 69 From: Tanmay Michel MD PCP: Nelia Smith DO Status: DEP ER ED Disposition - Plan for ED Patient: Disposition: Home Chief Complaint: Chest Pain Instructions: ED Chest Wall Strain Prescriptions: Hydrocodone Bitart/Apap 5-325 [Bosler 5/325] 1 - 2 tablet PO Q4H PRN PRN #20 tablet PRN Reason: Pain Referrals: Nelia Smith DO [Primary Care Provider] - What to do if you have Problems For any increased pain, shortness of breath, bleeding, nausea or vomiting, chest pain, or any unexpected problems, contact your doctor. Call [facility] ) or report to the closest Emergency Room. Call 911 if necessary. 01/26/15 0419 <Electronically signed by Tanmay Michel MD> Date Tanmay Michel MD Cosigner Signature (If Indicated): Date CC: Nelia Brown Start: 01-26-2015 End: 01-26-2015 Emergency Department Summary Comments: See Note; NOTES: [facility] Medical Records Department [address] [place] [address] Emergency Department Summary MR#: [id number] Acct: [id number] Name: LEYLA RIOJAS Rep #: [id number] : 1945 69 From: Tanmay Michel MD PCP: Nelia Smith DO Status: DEP ER DATE OF SERVICE: 01/25/2015 CHIEF COMPLAINT: Chest pain. MODE OF TRANSPORT: Private vehicle. HISTORY OF PRESENT ILLNESS: A 69-year-old female with right-sided chest wall pain for the last hour. [...] _ ___, that was done by Dr. Brito at [facility]. The aneurysm does extend into the lower abdominal region, but is mild in severity in that region only 3 x 2.8 cm. PHYSICAL EXAMINATION: VITAL SIGNS: Blood pressure 193/127, rest of vitals are within normal limits. CHEST: She has some tenderness to palpation in her right ribs laterally with range of motion; it significantly makes her pain worse. LUNGS: Clear. CARDIAC: Otherwise, normal. EMERGENCY DEPARTMENT TESTS: Chest x-ray shows nothing acute. CT of the chest shows nothing acute as well. Her mesh stent is patent. There is minimal intraluminal thrombus outside of the stent within the wall. There is no stent leakage. There is mild intraluminal thrombus peripheral to the stent extending for approximately 9 cm distally. No acute disease. EMERGENCY DEPARTMENT COURSE: EKG showed nothing acute. There is Q-waves in V1 and V2, unchanged from previous. CBC, chemistry normal. Troponin negative. The patient was given a dose of aspirin, given intravenous morphine. She was given a dose of labetalol. On reevaluation, her pain is significantly better. She is resting comfortably. At this time, I think her pain is likely secondary to intercostal rib pain. I have a low suspicion for acute PE. Her CAT scan is negative. I have a low suspicion for acute coronary syndrome. She will follow up as an outpatient with her vascular surgeon, as well as her family doctor. DISPOSITION: Home. IMPRESSION: Right chest pain, suspect intercostal spasms. Tanmay Michel MD T: NTS JOB: [id number] 01/26/15 0418 <Electronically signed by Tanmay Michel MD> Date Tanmay Michel MD CC: Nelia Smith DO Date Dictated: 01/26/15116 Date Transcribed: 01/26/15116 Public Information Director: Signed Nelia Smith Start: 01-25-2015 End: 01-26-2015 Chest 1 View (Portable) Comments: See Note; NOTES: [facility] Imaging Services [address] [place] [address] Radiology Report MR#: [id number] Acct: [id number] Name: LEYLA RIOJAS Rep #: [id number] : 1945 F 69 From: Brown Lord PCP: Nelia Smith DO Status: DEP Study: Chest 1 View (Portable) Date of Exam: 01/26/15 Exam# [id number] Ordering Dr: Tanmay Michel MD STUDY: X-RAY [...] to the main pulmonary trunk. Normal visualized thoracic spine. Normal visualized ribs, clavicles, and shoulders. There is no demonstrated abnormality of the visualized soft tissue structures of the upper abdomen. IMPRESSION: No acute cardiopulmonary disease. Aortic stent graft in its expected location. Old granulomatous disease. Electronically Signed: Brown Lord MD at 7:36 EDT , Service support [phone], CC: Nelia Smith DO; Tanmay Michel MD Public Information Director: Signed Nelia Smith Start: 01-25-2015 End: 01-26-2015 CTA Chest W/WO Contrast Comments: See Note; NOTES: [facility] Imaging Services [address] [place] [address] CAT Scan Report MR#: [id number] Acct: [id number] Name: LEYLA RIOJAS Rep #: [id number] : 1945 F 69 From: Brown Lord PCP: Nelia Smith DO Status: REG ER Study: CTA Chest W/WO Contrast Date of Exam: 01/25/15 Exam# [id number] Ordering Dr: Tanmay Michel MD STUDY: CTA CHEST REASON FOR EXAM: Female, 69 years old. Sudden onset of chest pain. History of repair of aortic tear 12/01/2014.. RADIATION DOSAGE (If Supplied By Facility): CTDIvol = ( 13.08 ) mGy, DLP = ( 492.48 ) mGycm TECHNIQUE: The examination was performed with the intravenous administration of 75 ml of Isovue 370 contrast material. Post-processing of the angiographic images was performed, with multiplanar reformation and 3D reconstruction. COMPARISON: 10/09/2014. FINDINGS: Normal enhancement of the main pulmonary artery and right and left pulmonary arteries. Normal enhancement of the bilateral peripheral pulmonary arteries. There is no demonstrated pulmonary embolism. Aortic stent graft involving an approximately 11 cm segment of the descending thoracic aorta. The stent continues inferiorly involving the proximal abdominal aorta and the distal stent is only partially visualized on this study tailored for evaluation of the chest. There is only very minimal intraluminal thrombus within the stent. No evidence of a stent leak. The distal descending thoracic aorta measures 4.6 x 4.8 cm as compared to the prior exam where it measured 4.0 x 3.8 cm. There is extensive intraluminal thrombus peripheral to the stent extending for an approximately 9 cm length within the false pass thoracic aortic aneurysm. There is no demonstrated aortic dissection. Normal heart and pericardium. 1.1 cm pretracheal lymph node unchanged. Calcified hilar lymph nodes. Normal visualized trachea and bronchi. The lungs are well expanded. Focal anterior right lower lobe subsegmental atelectasis or fibrosis. Normal pulmonary parenchyma. 1 cm densely calcified right lower lobe lung nodule. Normal pleura. No pneumothorax. Normal chest wall structures. Normal osseous structures. Scattered punctate calcifications in the liver and spleen. IMPRESSION: No acute findings in the chest. No pulmonary embolus or thoracic aortic dissection. Stent graft involving the distal thoracic aorta without evidence of a leak. There is intraluminal thrombus within the false pass distal thoracic aortic aneurysm, with the thrombus peripheral to the stent. The false pass thoracic aortic aneurysm measures 4.8 x 4.6 cm increased as compared to the prior exam where it measured 4.0 cm in greatest transverse dimension. Old granulomatous disease. Stable small mediastinal lymph nodes. Electronically Signed: Brown Lord MD at 0:36 EDT , Service support [phone], CC: Nelia Smith DO; Tanmay Michel MD Public Information Director: Signed Nelia Smith Start: 10-11-2014 End: 10-11-2014 12 lead ECG Comments: See Note; NOTES: [facility] Cardiovascular Services [address] [place] [address] 12 Lead EKG 10/09/142127 MR#: [id number] Acct: [id number] Name: LEYLA RIOJAS Rep #: [id number] : 1945 69 From: Benedicto Perla MD Attending Dr: Status: DEP ER Ordering Dr: Eugenia Armstrong MD Date: 10/09/14 Location: ED Sex: F C Admitted: Test Reason : CHEST PAIN Blood Pressure : / mmHG Vent. Rate : 085 BPM Atrial Rate : 085 BPM P-R Int : 132 ms QRS Dur : 074 ms QT Int : 374 ms P-R-T Axes : 075 070 060 degrees QTc Int : 445 ms Normal sinus rhythm Normal ECG Confirmed by YOU GUNTER, BENEDICTO ([id number]), scientific publications editor TARA SERRANO ([id number]) on 2014 10:10:38 AM Referred By: DA/HARRY Confirmed By:BENEDICTO PERLA MD 10/11/14 1010 Date Benedicto Perla MD CC: Nelia Smith DO Date Dictated: 10/09/142127 Date Transcribed: 10/09/142127 Public Information Director: Signed Nelia Smith Start: 10-10-2014 End: 10-10-2014 Emergency Department Summary Comments: See Note; NOTES: [facility] Medical Records Department [address] [place] [address] Emergency Department Summary MR#: [id number] Acct: [id number] Name: LEYLA RIOJAS Rep #: [id number] : 1945 69 From: Eugenia Armstrong MD PCP: Nelia Smith DO Status: [facility] ER DATE OF SERVICE: 10/09/2014 CHIEF COMPLAINT: Chest pain. SMITH HISTORY: The patient is a 69-year-old female who had gradual, [...] and an echocardiogram that were unremarkable. PHYSICAL EXAMINATION: VITAL SIGNS: Blood pressure on arrival was 180/104, temperature 96.6, heart rate is 86, respiratory rate is 17, pulse oximetry is 98% on room air. GENERAL: The patient is sitting upright in bed. She appears uncomfortable. HEART: Regular. LUNGS: Clear. ABDOMEN: Soft with mild epigastric tenderness that does not recreate her pain. She has no reproducible back pain on exam. EXTREMITIES: She has strong equal pulses throughout. HOSPITAL COURSE: Portable chest x-ray shows chronic changes with a tortuous aorta; this is unchanged compared to her prior study. EKG is sinus at 85 with no sign of acute ischemia. CBC is remarkable only for white count of 11.1. Chemistry studies reveal creatinine of 1.1. Cardiac enzymes are negative. Due to concern for aortic disease, a CTA of the chest was obtained. There is aneurysmal dilatation of the [...] that this aneurysm did not extend further into the abdomen. They comment on similar caliber, almost fusiform appearance of the descending thoracic aorta, which begins to taper the hiatus and then taper toward the bifurcation. The patient was given aspirin on arrival with morphine and Zofran, which did not improve her blood pressure. She was given 20 mg of labetalol and her blood pressure improved to 130-140 range. She also received 0.5 mg of Dilaudid. At this time, her pain is a 2/10. Due to the concern with her pain being between her shoulder blades and finding of thoracic aneurysm, I do feel she should be evaluated by the vascular or cardiothoracic. We do not have that capability here. After speaking with the patient, they would prefer to be transferred to [facility]. I spoke with the transfer line as well as the medicine doctor and the patient will be admitted to medicine for cardiac rule out and will have a consultation to have further evaluation of her aneurysm. DISPOSITION: Transfer to [facility]. IMPRESSION: 1. Chest pain. 2. Thoracic aortic aneurysm. Eugenia Armstrong MD T: NTS JOB: [id number] 10/10/14 2259 <Electronically signed by Eugenia Armstrong MD> Date Eugenia Armstrong MD CC: Nelia Smith DO Date Dictated: 10/10/1452 Date Transcribed: 10/10/1452 Public Information Director: Signed Nelia Smith Start: 10-09-2014 End: 10-10-2014 Abdomen/Pelvis without Cont Comments: See Note; NOTES: [facility] Imaging Services [address] [id number] CAT Scan Report MR#: [id number] Acct: [id number] Name: LEYLA RIOJAS Rep #: [id number] : 1945 F 69 From: Deandra Parsons MD PCP: Nelia Smith DO Status: REG ER Study: Abdomen/Pelvis without Cont Date of Exam: 10/09/14 Exam# [id number] Ordering Dr: Eugenia Armstrong MD STUDY: CT ABDOMEN AND PELVIS WITHOUT CONTRAST REASON FOR EXAM: Female, 69 years old. Aneurysm pain RADIATION DOSAGE (If Supplied By Facility): CTDIvol = ( 14.50 ) mGy, DLP = ( 705.94 ) mGycm TECHNIQUE: Transaxial images were obtained [...] in the liver compatible with old granulomatous disease. Normal gallbladder and extrahepatic biliary system. There are multiple benign calcified granulomata of the spleen. Normal pancreas. Normal bilateral adrenal glands. There is a fatty appearing mass within the right kidney measuring 3.1 mm suggestive of a lipoma or angiomyolipoma. Normal left kidney. Bilateral nephrograms appear symmetric and normal bilateral kidneys from the recent CTA chest. There is a minimal hiatal hernia. Normal small intestine. There is abundant stool in the colon. There are a few scattered diverticula present without evidence of diverticulitis. There is non-visualization of the appendix. There is aneurysmal dilatation of the descending thoracic aorta as it enters the abdomen measuring up to 3.8 x 3.2 cm. At the level of the celiac axis it measures approximately 3 x 2.8 cm. At the takeoff of the renal arteries aorta measures 2.5 x 2.6 cm. There is calcification of the takeoff of the renal arteries. The aorta is minimally tortuous. The bifurcation the aorta measures 2.0 x 2.1 cm. Normal inferior vena cava. Normal retroperitoneum. The bladder is distended and full of IV contrast from the previous procedure. There is absence of the uterus consistent with a prior hysterectomy. Normal abdominal wall. There are diffuse degenerative changes of the visualized lumbar spine. This is most significant at the level of L4-L5 where there is severe neural foramina narrowing and severe central stenosis. There [...] kidney Diverticulosis without evidence of diverticulitis constipation. Degenerative change thoracolumbar spine. Electronically Signed: Deandra Parsons MD at 23:55 EST Tel , Service support [phone], CC: Eugenia Armstrong MD; Nelia Smith DO Public Information Director: Signed Nelia Smith Start: 10-09-2014 End: 10-09-2014 CTA Chest W/WO Contrast Comments: See Note; NOTES: [facility] Imaging Services [address] [place] [address] CAT Scan Report MR#: [id number] Acct: [id number] Name: LEYLA RIOJAS Rep #: [id number] : 1945 F 69 From: Deandra Parsons MD PCP: Nelia Smith DO Status: [facility] ER Study: CTA Chest W/WO Contrast Date of Exam: 10/09/14 Exam# [id number] Ordering Dr: Eugenia Armstrong MD STUDY: CTA CHEST REASON FOR EXAM: Female, 69 years old. Chest pain RADIATION DOSAGE (If Supplied By Facility): CTDIvol = ( 14.65 ) mGy, DLP = ( 711.43 ) mGycm TECHNIQUE: The examination was performed with the intravenous administration of 75ML ml of Isovue 370 contrast material. Post-processing of the angiographic images was performed, with multiplanar reformation and 3D reconstruction. COMPARISON: Chest x-ray June 09, 2014 FINDINGS: Normal [...] the descending thoracic aorta expands to a maximal diameter of 3.8 x 4.0 cm with some peripheral thrombus. The aorta at the level of the celiac measures 2.9 x 2.9 cm. There is no demonstrated aortic dissection. There is mild cardiomegaly. There is an inhomogeneous appearance of the thyroid gland with a low attenuating lesion in the left thyroid gland measuring 6.3 mm. In the inferior aspect of the right thyroid lobe there is a 7.6 mm cystic nodule. There are a few nonspecific mediastinal lymph nodes. There is a pretracheal lymph node measuring 1.2 cm. There are a few calcified subcarinal lymph nodes. There are calcified right hilar lymph nodes. Normal visualized trachea and bronchi. The lungs are well expanded. There are a few scattered areas of groundglass opacity demonstrated. There is minimal fibrotic change in the upper far apices. There is a calcified granuloma in the right lower lobe measuring 9.3 mm. Normal pleura. Normal chest wall structures. There are degenerative changes of thoracic spine. The liver is enlarged and fatty infiltrated there are calcified granulomas in the spleen. IMPRESSION: There is aneurysmal dilatation of the descending thoracic aorta measuring up to 3.8 x 4.0 cm. It is diffusely aneurysmal from the arch to the hiatus. There is mild aneurysmal dilatation of the visualized abdominal aorta. Inhomogeneous thyroid gland. Recommend consideration for followup thyroid ultrasound when clinically appropriate. Old granulomatous disease Borderline cardiac enlargement No evidence of pulmonary embolism. Electronically Signed: Deandra Parsons MD at 22:59 EST Tel , Service support [phone], CC: Eugenia Armstrong MD; Nelia Smith DO Public Information Director: Signed Nelia Smith Start: 10-09-2014 End: 10-10-2014 Chest 1 View (Portable) Comments: See Note; NOTES: [facility] Imaging Services [address] [place] [address] Radiology Report MR#: [id number] Acct: [id number] Name: LEYLA RIOJAS Rep #: [id number] : 1945 F 69 From: Lazaro Abrams MD PCP: Nelia Smith DO Status: DEP ER Study: Chest 1 View (Portable) Date of Exam: 10/09/14 Exam# [id number] Ordering Dr: Eugenia Armstrong MD STUDY: X-RAY CHEST REASON FOR EXAM: Female, 69 years old. Chest pain. TECHNIQUE: Single AP portable view of the chest. COMPARISON: Comparison is made with prior study dated June 09, 2014. FINDINGS: EKG electrodes are seen. Calcified old granulomatous disease. Hyperinflation. There is no demonstrated pleural abnormality. Normal size heart. Normal mediastinum and cheli. Normal visualized pulmonary arteries. There is atherosclerotic tortuosity of the aortic arch and descending thoracic aorta. Normal visualized thoracic spine. Normal visualized ribs, clavicles, and shoulders. There is no demonstrated abnormality of the visualized soft tissue structures of the upper abdomen. IMPRESSION: Hyperinflation. Calcified old granulomatous disease. Electronically Signed: Lazaro Abrams MD at 11:07 EST Tel [phone], Service support [phone], CC: Eugenia Armstrong MD; Nelia Smith DO Public Information Director: Signed Nelia Zoraida Start: 06-22-2014 End: 06-22-2014 Bilat Scrn Digital & CAD Comments: See Note; NOTES: [facility] Imaging Services [address] [place] [address] Breast Imaging Report MR#: [id number] Acct: [id number] Name: LEYLA RIOJAS Rep #: [id number] : 1945 F 68 From: Lazaro Abrams MD PCP: Nelia Smith DO Status: REG CLI Exam# [id number] Ordering Dr: Nelia Smith DO MAMMOGRAPHY - [...] abnormality. Electronically Signed: Lazaro Abrams MD at 9:25 EDT Tel [phone], Service support [phone], CC: Nelia Smith DO Public Information Director: Signed Nelia Smith Work Phone: Start: 06-12-2014 End: 06-12-2014 Echocardiogram Complete Comments: See Note; NOTES: [facility] Cardiovascular Services [address] [place] [address] Echo Complete 06/12/14 0956 MR#: [id number] Acct: [id number] Name: LEYLA RIOJAS Rep #: [id number] : 1945 68 From: Ceasar Wagner MD Attending Dr: Nelia Smith DO Status: REG CLI Ordering Dr: Nelia Smith DO Date: 06/12/14 Location: [facility] Sex: F C Admitted: Procedure This was a 2D Doppler, Color Flow transthoracic echocardiogram. Exam performed in department. Left Ventricle Normal LV size. Left ventricular systolic function is normal. The estimated ejection fraction is 70 %. No regional wall motion abnormalities noted. Right Ventricle Normal RV size. Normal systolic function. Atria Normal left atrium. Normal right atrium. Mitral Valve Normal mitral valve. Tricuspid Valve Normal tricuspid valve. Mild (1+) tricuspid valve insufficiency. Pulmonary artery systolic pressure is 22 mmHg. Aortic Valve Normal aortic valve. Pulmonic Valve Normal pulmonic valve. Great Vessels Normal aortic root. The pulmonary artery is normal size. Normal inferior vena cava. Pericardium/Pleural No pericardial effusion. LVIDd: 4.1 cm IVSd: 1.0 cm Ao root diam: 2.5 cm LAV(MOD-bp): 36.4 ml LVIDs: 1.9 cm LVPWd: 0.91 cm Ao root area: 4.8 cm2 LAV(MOD-bp) Indexed: 20.1 ml/m2 RVDd: 2.7 cm FS: 52.2 % LA dimension: 4.0 cm LAV(MOD-sp2): 39.3 ml LAV(MOD-sp4): 34.3 ml LA A4 area: 14.7 cm2 RA A4 area: 12.4 cm2 MV E max jeremiah: 98.5 cm/secLat Peak E' Jeremiah: Med Peak E' Jeremiah: Ao V2 max: MV A max jeremiah: 9.8 cm/sec 6.6 cm/sec 156.2 cm/sec 114.7 cm/sec Ao max P.8 mmHg MV E/A: 0.86 LV V1 max: 122.3 cm/sec PA V2 max: 75.1 cm/sec TR max jeremiah: 211.1 cm/sec E /E' lat: 10.1 LV V1 max P.0 mmHg PA max P.3 mmHg TR max P.8 mmHg E/E' med: 14.9 Interpretation Summary Normal LV size. Left ventricular systolic function is normal. The estimated ejection fraction is 70 %. Mild (1+) tricuspid valve insufficiency. Ordering Physician: Nelia Smith Performed By: Chsatity Santos RDCS 09/15/14 1430 Date Ceasar Wagner MD CC: Nelia Smith DO Date Dictated: 06/12/14 0956 Date Transcribed: 06/12/14 1430 Public Information Director: Signed Nelia Smith Start: 06-09-2014 End: 06-10-2014 Chest PA and Lateral Comments: See Note; NOTES: [facility] Imaging Services [address] [place] [address] Radiology Report MR#: [id number] Acct: [id number] Name: LEYLA RIOJAS Rep #: [id number] : 1945 F 68 From: Zaki Farooq DO PCP: Nelia Smith DO Status: REG CLI Study: Chest PA and Lateral Date of Exam: 06/09/14 Exam# [id number] Ordering Dr: Nelia Smith DO STUDY: X-RAY CHEST REASON FOR EXAM: Female, 68 years old. Abnormal pulmonary function test results. History of bilateral breast lumpectomies. TECHNIQUE: PA and lateral views of the chest. COMPARISON: August 01, 2008 FINDINGS: The lungs are hyperinflated. Interstitial prominence is demonstrated bilaterally. There is no focal pneumonia, large pleural effusion or pneumothorax demonstrated. Calcification in the right lung base laterally is stable. Normal size heart. There are calcified mediastinal lymph nodes. Normal visualized pulmonary arteries. There is atherosclerotic tortuosity of the aortic arch and descending thoracic aorta. There are mild degenerative changes of the visualized thoracic spine. Normal visualized ribs, clavicles, and shoulders. There is no demonstrated abnormality of the visualized soft tissue structures of the upper abdomen. IMPRESSION: COPD. No acute airspace opacities are demonstrated. Calcification right lung base laterally is stable. Electronically Signed: Jasbir Rothman DO at 13:47 EDT , Service support [phone], RAD/Chest PA and Lateral IMPRESSION: COPD. No acute airspace opacities are demonstrated. Calcification right lung base laterally is stable. Electronically Signed: Jasbir Rothman DO at 13:47 EDT , Service support [phone], CC: Nelia Smith DO Public Information Director: Signed Nelia Zoraida Work Phone: Start: 06-09-2014 End: 06-09-2014 Spmtry w/vc expiratory nita w/wo mxml vol vntj _ Nelia Smith Work Phone: Start: 08-10-2013 End: 08-10-2013 Bilat Scrn Digital & CAD Comments: See Note; NOTES: [facility] Imaging Services [address] [place] [address] Breast Imaging Report MR#: [id number] Acct: [id number] Name: LEYLA RIOJAS Rep #: [id number] : 1945 F 67 From: Lazaro Abrams MD PCP: Nelia Smith DO Status: REG CLI Exam# [id number] Ordering Dr: Nelia Smith DO MAMMOGRAPHY - [...] August 06, 2012 and August 05, 2011. FINDINGS: The breast composition is composed of [...] August 10, 2013 at 9:02:54 AM EST [phone] Electronically Signed GP/GP If you are the referring physician and would like to consult with the radiologist who provided this interpretation, please contact Lazaro Abrams M.D. at [phone]. If this radiologist is unavailable, you will be directed to another radiologist to assist. If you are a patient with a question regarding this report, please contact your referring physician directly. Professional Interpretation Provided By: [employer], Phone , These documents contain legally protected and confidential health information intended only for the use of the individual or entity named above. If you are not the intended recipient, you are hereby notified that any disclosure, copying, distribution, or other use of these documents is strictly prohibited. If you have received this information in error, please notify the sender immediately and arrange for the return or destruction of these documents. CC: Nelia Smith DO Public Information Director: Signed Nelia Smith Work Phone: Start: 08-10-2013 End: 08-10-2013 Dexa Bone Density Study (HP) Comments: See Note; NOTES: [facility] Imaging Services [address] [place] [address] Bone Density Report MR#: [id number] Acct: [id number] Name: LEYLA RIOJAS Rep #: [id number] : 1945 F 67 From: Lazaro Abrams MD PCP: Nelia Smith DO Status: REG CLI Study: Dexa Bone Density Study () Date of Exam: 08/10/13 Exam# [id number] Ordering Dr: Nelia Smith DO STUDY: DUAL [...] / Z-score (2.0) Left Femoral Neck: g/cm2 (0.974) / T-score (-0.5) / Z-score (1.2) Right Femur Total: g/cm2 (1.040) / T-score (0.3) / Z-score (1.7) Right Femoral Neck: g/cm2 (0.926) / T-score (-0.8) / Z-score (0.9) The T-Scores on the most recent prior [...] follows: Mild -1 through -1.5 Moderate -1.6 through -2.0 Severe -2.1 through -2.4 The Z-score is the number of standard deviations above or below age-matched controls. A Z-score of less than -1.5 would be considered abnormal. References: 1. NIH Osteoporosis and Related Bone Diseases http://www.osteo.org 2. International Society for Clinical Densitometry http://www.iscd.org 3. National Osteoporosis Foundation http://www.nof.org Signed: Lazaro Abrams M.D. August 10, 2013 at 2:57:37 PM EST [phone] Electronically Signed GP/GP If you are the referring physician and would like to consult with the radiologist who provided this interpretation, please contact Lazaro Abrams M.D. at [phone]. If this radiologist is unavailable, you will be directed to another radiologist to assist. If you are a patient with a question regarding this report, please contact your referring physician directly. Professional Interpretation Provided By: [employer], Phone , These documents contain legally protected and confidential health information intended only for the use of the individual or entity named above. If you are not the intended recipient, you are hereby notified that any disclosure, copying, distribution, or other use of these documents is strictly prohibited. If you have received this information in error, please notify the sender immediately and arrange for the return or destruction of these documents. CC: Nelia Smith DO Public Information Director: Signed Nelia Smith Work Phone: appendectomy 1964 Jaimee livingston appendectomy 1964 Radha doherty appendectomy 1964 Monik Gra vius appendectomy 1964 Monik Gra vius breast biopsy/mastec josef 2001 Jaimee Sorensen breast biopsy/mastec josef 2002 Radha Rain breast biopsy/mastec josef 2002 Monik Gravius breast biopsy/mastec josef 2002 Monik Gravius Colonoscopy Jaimee Sorensen Plan of Treatment Date Care Activity Detail Author Start: 04-15-2027 Urine microalbumin profile DTaP,Tdap,Td Vaccine (2 - Td or Tdap) [facility] Start: 07-10-2023 Hepatic function panel [facility] Work Phone: Start: 07-10-2023 Lipid panel [facility] Work Phone: Start: 05-29-2023 Covid-19 Vaccine () Covid-19 Vaccine () [facility] Start: 05-29-2023 Influenza vaccination [facility] Start: 04-23-2023 Procedure Education [facility]; [facility] Work Phone: Start: 04-23-2023 Provider Instructions for Treatment [facility]; [facility] Work Phone: Start: 04-23-2023 Hepatic function panel [facility] Work Phone: Start: 04-23-2023 Lipid panel [facility]; [facility] Work Phone: Start: 03-23-2023 Procedure Education [facility]; [facility] Work Phone: Start: 03-23-2023 Provider Instructions for Treatment [facility]; [facility] Work Phone: Start: 03-23-2023 Assay of thyroid stimulating hormone tsh [facility]; [facility] Work Phone: Start: 03-23-2023 25 hydroxy includes fractions if performed [facility]; [facility] Work Phone: Start: 03-23-2023 Urnls dip stick/tablet reagent auto microscopy [facility]; [facility] Work Phone: Start: 03-23-2023 Urine albumin quantitative [facility]; [facility] Work Phone: Start: 03-23-2023 Comprehensive metabolic panel [facility]; [facility] Work Phone: Start: 03-23-2023 Lipid panel [facility]; [facility] Work Phone: Start: 03-23-2023 Blood count complete auto&auto difrntl wbc [facility]; [facility] Work Phone: Start: 03-23-2023 Hepatitis c antibody [facility] Work Phone: Start: 09-28-2022 ADVANCE DIRECTIVE DISCUSSION ADVANCE DIRECTIVE DISCUSSION [facility] Start: 09-28-2022 DEPRESSION ASSESSMENT DEPRESSION ASSESSMENT [facility] Start: 04-23-2022 COVID-19 VACCINE (5 - Moderna series) COVID-19 VACCINE (5 - Moderna series) [facility] Start: 03-21-2022 Procedure Education [facility]; [facility] Work Phone: Start: 03-21-2022 Provider Instructions for Treatment [facility]; [facility] Work Phone: Start: 03-21-2022 Oncology colorectal screening yumi 10 dna markrs [facility]; [facility] Work Phone: Start: 03-21-2022 Culture bacterial quanttative colony count urine [facility]; [facility] Work Phone: Start: 01-24-2022 Procedure Education [facility]; [facility] Work Phone: Start: 01-24-2022 Provider Instructions for Treatment [facility]; [facility] Work Phone: Start: 01-24-2022 25 hydroxy includes fractions if performed [facility]; [facility] Work Phone: Start: 01-24-2022 Urnls dip stick/tablet reagent auto microscopy [facility]; [facility] Work Phone: Start: 01-24-2022 Urine albumin quantitative [facility]; [facility] Work Phone: Start: 01-24-2022 [facility] metabolic panel [facility]; [facility] Work Phone: Start: 01-24-2022 Lipid panel [facility] Work Phone: Start: 01-24-2022 Blood count complete auto&auto difrntl wbc [facility]; [facility] Work Phone: Start: 03-20-2021 Procedure Education [facility]; [facility] Work Phone: Start: 03-20-2021 Provider Instructions for Treatment [facility]; [facility] Work Phone: Start: 09-11-2020 Shingrix Vaccine (3 of 3) Shingrix Vaccine (3 of 3) [facility] Start: 07-25-2020 Procedure Education [facility] Work Phone: Start: 07-25-2020 Provider Instructions for Treatment [facility] Work Phone: Start: 07-25-2020 Assay of thyroid stimulating hormone tsh [facility]; [facility] Work Phone: Start: 07-25-2020 TSH Qn TSH (45611) [facility] Work Phone: Start: 07-25-2020 Urnls dip stick/tablet reagent auto microscopy [facility] Work Phone: Start: 07-25-2020 Urine albumin quantitative [facility] Work Phone: Start: 07-25-2020 Comprehensive metabolic panel [facility] Work Phone: Start: 07-25-2020 Lipid panel [facility] Work Phone: Start: 07-25-2020 Blood count complete auto&auto difrntl wbc [facility] Work Phone: Start: 07-25-2020 25 hydroxy includes fractions if performed [facility] Work Phone: Start: 09-05-2019 Procedure Education [facility] Work Phone: Start: 09-05-2019 Provider Instructions for Treatment [facility] Work Phone: Start: 07-11-2019 25 hydroxy includes fractions if performed CALCIFIDIOL (04989) VIT D 25 [facility] Work Phone: Start: 07-11-2019 Urnls dip stick/tablet reagent auto microscopy [facility] Work Phone: Start: 07-11-2019 Urine albumin quantitative [facility] Work Phone: Start: 07-11-2019 Comprehensive metabolic panel METABOLIC PANEL, COMPREHENSIVE (97884) [facility] Work Phone: Start: 07-11-2019 Blood count complete auto&auto difrntl wbc CBC W/AUTO DIFF WBC (76409) [facility] Work Phone: Start: 07-11-2019 Procedure Education [facility] Work Phone: Start: 07-11-2019 Provider Instructions for Treatment [facility] Work Phone: Start: 09-03-2018 Procedure Education [facility] Work Phone: Start: 09-03-2018 Provider Instructions for Treatment [facility] Work Phone: Start: 05-26-2018 Provider Instructions for Treatment [facility] Work Phone: Start: 05-19-2018 Provider Instructions for Treatment [facility] Work Phone: Start: 10-15-2017 Provider Instructions for Treatment [facility] Work Phone: Start: 09-24-2017 Procedure Education [facility] Work Phone: Start: 09-24-2017 Provider Instructions for Treatment [facility] Work Phone: Start: 08-10-2017 Provider Instructions for Treatment [facility] Work Phone: Start: 10-24-2016 Procedure Education [facility] Work Phone: Start: 10-20-2016 Procedure Education [facility] Work Phone: Start: 10-14-2016 Procedure Education [facility] Work Phone: Start: 10-14-2016 Provider Instructions for Treatment [facility] Work Phone: Start: 09-04-2016 Procedure Education [facility] Work Phone: Start: 07-29-2016 Procedure Education [facility] Work Phone: Start: 07-29-2016 Provider Instructions for Treatment [facility] Work Phone: Start: 07-29-2016 Blood occult fecal hgb deter ia qual feces 1-3 [facility] Work Phone: Start: 07-29-2016 25 hydroxy includes fractions if performed [facility] Work Phone: Start: 07-29-2016 Urnls dip stick/tablet reagent auto microscopy [facility] Work Phone: Start: 07-29-2016 Urine albumin quantitative [facility] Work Phone: Start: 07-29-2016 Comprehensive metabolic panel [facility] Work Phone: Start: 07-29-2016 Lipid panel [facility] Work Phone: Start: 07-29-2016 Blood count complete auto&auto difrntl wbc [facility] Work Phone: Start: 01-16-2016 Provider Instructions for Treatment [facility] Work Phone: Start: 01-16-2016 Ova&parasites direct smears concentration & id [facility] Work Phone: Start: 01-16-2016 Blood occult peroxidase actv qual feces 1 deter [facility] Work Phone: Start: 01-16-2016 Leukocyte assmt fecal qual/semiquantitative [facility] Work Phone: Start: 01-16-2016 Culture bacterial any source anaerobic iso&id [facility] Work Phone: Start: 01-16-2016 Cul bact stool aerobic isol salmonella&shigell [facility] Work Phone: Start: 12-24-2015 CBC, PLATELETS & MANUAL DIFF ([id number]) [facility] Work Phone: Start: 12-18-2015 Patient Education [facility] Work Phone: Start: 12-17-2015 Provider Instructions for Treatment [facility] Work Phone: Start: 12-14-2015 Procedure Education [facility] Work Phone: Start: 12-14-2015 Provider Instructions for Treatment [facility] Work Phone: Start: 12-14-2015 Assay of magnesium [facility]; [facility] Work Phone: Start: 12-14-2015 Magnesium mass conc MAGNESIUM ([id number]) [facility] Work Phone: Start: 12-14-2015 Renal function panel [facility] Work Phone: Start: 12-14-2015 Blood count complete auto&auto difrntl wbc [facility] Work Phone: Start: 11-26-2015 Provider Instructions for Treatment [facility] Work Phone: Start: 11-26-2015 25 hydroxy includes fractions if performed [facility] Work Phone: Start: 08-30-2015 Comprehensive metabolic panel [facility] Work Phone: Start: 08-30-2015 Blood count complete automated [facility] Work Phone: Start: 08-30-2015 Sedimentation rate rbc non-automated [facility] Work Phone: Start: 08-30-2015 C-reactive protein [facility]; [facility] Work Phone: Start: 08-30-2015 CRP mass conc C-REACTIVE PROTEIN (44025) [facility] Work Phone: Start: 08-21-2015 25 hydroxy includes fractions if performed [facility] Work Phone: Start: 06-29-2015 Procedure Education [facility] Work Phone: Start: 06-29-2015 Provider Instructions for Treatment [facility] Work Phone: Start: 06-29-2015 Blood occult fecal hgb deter ia qual feces 1-3 [facility] Work Phone: Start: 04-19-2015 Procedure Education [facility] Work Phone: Start: 04-04-2015 Provider Instructions for Treatment [facility] Work Phone: Start: 03-28-2015 Procedure Education [facility] Work Phone: Start: 03-28-2015 Provider Instructions for Treatment [facility] Work Phone: Start: 03-12-2015 Patient Education [facility] Work Phone: Start: 03-12-2015 Procedure Education [facility] Work Phone: Start: 02-05-2015 Procedure Education [facility] Work Phone: Start: 10-18-2014 Provider Instructions for Treatment [facility] Work Phone: Start: 07-10-2014 Provider Instructions for Treatment [facility] Work Phone: Start: 06-19-2014 Provider Instructions for Treatment [facility] Work Phone: Start: 06-19-2014 Blood occult fecal hgb deter ia qual feces 1-3 [facility] Work Phone: Start: 06-09-2014 Provider Instructions for Treatment [facility] Work Phone: Start: 03-03-2014 Provider Instructions for Treatment [facility] Work Phone: Start: 02-13-2014 Provider Instructions for Treatment [facility] Work Phone: Start: 12-07-2013 Provider Instructions for Treatment [facility] Work Phone: Start: 06-03-2013 Patient Education [facility] Work Phone: Start: 06-03-2013 Provider Instructions for Treatment [facility] Work Phone: Start: 03-23-2013 Patient Education [facility] Work Phone: Start: 03-23-2013 Provider Instructions for Treatment [facility] Work Phone: Start: 11-11-2012 Patient Education [facility] Work Phone: Start: 07-12-2012 Patient Education [facility] Work Phone: Start: 07-12-2012 Provider Instructions for Treatment [facility] Work Phone: Start: 07-01-2012 Patient Education [facility] Work Phone: Start: 07-01-2012 Provider Instructions for Treatment [facility] Work Phone: Start: 02-27-2012 Provider Instructions for Treatment [facility] Work Phone: Start: 02-16-2012 Provider Instructions for Treatment [facility] Work Phone: Start: 07-08-2011 Provider Instructions for Treatment [facility] Work Phone: Start: 07-01-2011 Provider Instructions for Treatment [facility] Work Phone: Start: 06-23-2011 Provider Instructions for Treatment [facility] Work Phone: Start: 12-09-2010 Provider Instructions for Treatment [facility] Work Phone: Start: 11-12-2010 Provider Instructions for Treatment [facility] Work Phone: Start: 07-03-2010 Provider Instructions for Treatment [facility] Work Phone: Start: 07-03-2010 Culture bacterial quanttative colony count urine [facility] Work Phone: Start: 07-03-2010 Blood occult fecal hgb deter ia qual feces 1-3 [facility] Work Phone: Start: 06-14-2010 Provider Instructions for Treatment [facility] Work Phone: Start: 06-07-2010 Provider Instructions for Treatment [facility] Work Phone: Start: 11-08-2009 Provider Instructions for Treatment [facility] Work Phone: Start: 06-15-2009 Provider Instructions for Treatment [facility] Work Phone: Start: 06-15-2009 Lipoprotein blood yumi numbers & subclasses [facility]; [facility] Work Phone: Start: 06-15-2009 Protein mass conc LIPOPROTEIN, BLD, BY NMR (68367) [facility] Work Phone: Start: 06-15-2009 Lipid panel [facility] Work Phone: Start: 06-15-2009 Blood occult fecal hgb deter ia qual feces 1-3 [facility] Work Phone: Start: 03-05-2009 Provider Instructions for Treatment [facility] Work Phone: Start: 2008 BONE DENSITY BONE DENSITY [facility] Start: 2008 Bone Density Screening Bone Density Screening [facility] Start: 2008 Pneumococcal Vaccine: 65+ (1 - PCV) Pneumococcal Vaccine: 65+ (1 - PCV) [facility] Start: 07-31-2008 Provider Instructions for Treatment [facility] Work Phone: Start: 06-23-2008 Provider Instructions for Treatment [facility] Work Phone: Start: 06-23-2008 Blood occult fecal hgb deter ia qual feces 1-3 [facility] Work Phone: Start: 08-16-2007 Provider Instructions for Treatment [facility] Work Phone: Start: 06-21-2007 Blood occult peroxidase actv qual feces 1 deter [facility] Work Phone: Start: 06-21-2007 Provider Instructions for Treatment [facility] Work Phone: Start: 02-01-2007 Glucose mass conc Glucose, PP/2 Hour (70003) [facility] Work Phone: Start: 02-01-2007 Glucose quantitative blood xcpt reagent strip [facility] Work Phone: Start: 11-18-2006 Provider Instructions for Treatment [facility] Work Phone: Start: 09-14-2005 DIABETES SCREEN DIABETES SCREEN [facility] Start: 09-14-2005 Diabetes Screening Diabetes Screening [facility] Start: 2003 RSV Vaccine (1 - 1-dose 60+ series) RSV Vaccine (1 - 1-dose 60+ series) [facility] Start: 1993 SHINGRIX VACCINE (1 of 2) SHINGRIX VACCINE (1 of 2) [facility] Start: 1962 Urine microalbumin profile [facility] Start: 1949 Pneumococcal Vaccine: 65+ (1 - PCV) Pneumococcal Vaccine: 65+ (1 - PCV) [facility] Start: 1949 PNEUMOCOCCAL: 65+ (1 - PCV) PNEUMOCOCCAL: 65+ (1 - PCV) [facility] ALLERGEN SKIN TEST-LATEX ALLERGE N SKIN TEST-LATEX Procedures Routine Adverse drug reaction, initial encounter Ordered: 07/06/2023 [facility] Work Phone: Immunizations Immunization Date Immunization Notes Care Provider Elroy villa 09-04-2022 influenza virus vaccine, unspecified formulation Zaki Garay MD Work Phone: [facility] 03-06-2022 COVID-Moderna (50 MCG/0.25 ML) Nelia Zoraida DO Work Phone: [facility]; [facility] Work Phone: 12-12-2020 COVID-19 (Moderna) Nelia Zoraida DO Work Phone: [facility]; [facility] Work Phone: 06-28-2020 zoster vaccine, live Nelia Zoraida [facility] Work Phone: 04-04-2020 zoster vaccine, live Nelia Zoraida [facility] Work Phone: 06-20-2019 influenza, seasonal, injectable Nelia Zoraida [facility] Work Phone: 09-28-2018 influenza, seasonal, injectable Nelia Zoraida [facility] Work Phone: Payers Date Payer Category Payer Unknown 2016 Unknown [id number] 2012 Private Health Insurance [id number] 2010 Medicare [id number] 2008 Medicare MEDICARE MEDICAR E A AND B [id number] 2008-Present [phone] [place] [address] Medicare [id number] 2008 Medicare [id number] 1943 Unknown [id number] Medicare [id number] Unknown SC Unknown [id number] Social History Date Type Detail Facility Start: 05-19-2023 End: 08-24-2023 Alcohol Use Former smoker [facility] Work Phone: Clinical Notes 05-19-2023 to 08-24-2023 Tamar Douglas MD - 08/24/2023 9:10 AM Sae Sanchez MD - 08/10/2023 1:00 PM Vanessa Herman RN - 08/10/2023 12:51 PM ESTPatient Sae Ortiz MD - 07/06/2023 1:00 PM EDT Note Date & Type Note Facility 08-24-2023 Note HNO ID: [id number] Author: Tamar Douglas MD Service: ? Author Type: Physician Type: Progress Notes Filed: 08/24/2023 10:11 AM Note Text: Leyla Riojas 1945 REFERRING PHYSICIAN: No ref. provider found CHIEF COMPLAINT: Follow Up (FNA Thyroid 08/24) HPI: The patient is a 77 year old female presents for discussion s/p US guided FNA of right thyroid nodule on 08/17/23. Pathology reveal benign follicular nodule Patient notes no problems from biopsy PAST MEDICAL HISTORY Diagnosis Date Bacterial pneumonia, unspecified Cardiac murmur Cervicalgia Cough Disorder of bone and cartilage, unspecified osteopenia Diverticulosis of colon (without mention of hemorrhage) Family history of malignant neoplasm of breast Fibromyalgia Lipoprotein deficiencies Myalgia and myositis, unspecified Peptic ulcer, unspecified site, unspecified as acute or chronic, without mention of hemorrhage or perforation Peripheral vascular disease, unspecified (HCC) PAST SURGICAL HISTORY Procedure Laterality Date ABD AORTA ANEURYSM REPAIR 11/2014 APPENDECTOMY 09/28/1964 ARTHROTOMY W/MENISCUS REPAIR KNEE Right 05/2015 BUNIONECTOMY, LAPIDUS-TYPE 06/2014 BX BREAST NEEDLE CORE W/O IMAGING GUIDANCE SPX 09/28/1998 lt breast- benign COLONOSCOPY FLX DX W/COLLJ SPEC WHEN PFRMD 09/07/2002 Colonoscopy COLONOSCOPY FLX DX W/COLLJ SPEC WHEN PFRMD 10/23/2011 Colonoscopy LIG/TRNSXJ FLP TUBE ABDL/VAG APPR UNI/BI 09/28/1971 Tubal ligation PAST SURGICAL HISTORY OF 09/28/1971 kidney and bladder polyps PAST SURGICAL HISTORY OF 09/28/2001 breast bx and mastectomy PAST SURGICAL HISTORY OF 12/01/2014 throacic abd aorta tear Ak Gen REMV CATARACT EXTRACAP,INSERT LENS Bilateral 2018 REVISE MEDIAN N/CARPAL TUNNEL SURG Left 08/2017 SIGMOIDOSCOPY FLX DX W/COLLJ SPEC BR/WA IF PFRMD 1990. Sigmoidoscopy, flexible SKIN BX, 1 LESION Left 08/2016 removal squamous cell- left check THYROID FINE NEEDLE ASPIRATION 08/17/2023 right thyroid nodule TOTAL ABDOMINAL HYSTERECT W/WO RMVL TUBE OVARY 09/28/1988 Hysterectomy, DANIELA Current Outpatient Medications Medication Sig Biotin 10,000 mcg cap Take 5,000 mcg by mouth once daily. calcium carbonate (CALCIUM 600) 600 mg calcium (1,500 mg) tab Take 600 mg by mouth once daily. gabapentin (NEURONTIN) 100 mg capsule Take 100 mg by mouth three times daily. vitamin D3/vitamin K2, MK4, (K2 PLUS D3 ORAL) Take 100 mcg by mouth once daily. melatonin 10 mg cap Take 5 mg by mouth once daily. polyethylene glycol 3350 (MIRALAX) 17 gram/dose powder Take 17 g by mouth as needed for constipation. Dissolve dose in 4 - 8 ounces of liquid and take as directed. vit C,I-Fd-oqyqm-lutein-zeaxan (PRESERVISION AREDS-2) 250-90-40-1 mg Take 1 capsule by mouth twice daily with meals. Omeprazole Magnesium (PRILOSEC OTC) 20 mg tablet Take 20 mg by mouth once daily. rosuvastatin (CRESTOR) 5 mg tablet Take 5 mg by mouth once daily. metoprolol succinate ER (TOPROL XL) 50 mg 24 hr tablet Take 100 mg by mouth once daily. aspirin, enteric coated (ASPIRIN, ENTERIC COATED) 81 mg EC tablet Take 81 mg by mouth once daily. D3/RED WINE/RESVERATROL/MALT (SUPER-D3+ ORAL) Take 4,000 Units by mouth once daily. VITAMIN B COMPLEX (B COMPLEX 1 ORAL) Take 1 tablet by mouth once daily. raloxifene (EVISTA) 60 mg ORAL tablet Take 60 mg by mouth once daily. amitriptyline 10 mg ORAL tablet Take 1 tablet by mouth daily at bedtime. No current facility-administered medications for this visit. ALLERGIES: Amoxil [Amoxicillin], Augmentin [Amoxicillin-Pot Clavulanate], Benzocaine, Cimetidine, Meloxicam, Joe [Other], Percocet [Oxycodone-Acetaminophen], and Steroids [Corticosteroids (Glucocorticoids)] REVIEW OF SYSTEMS: Denies pain Denies fevers PHYSICAL EXAMINATION: General: The patient is 77 year old female, well nourished, well hydrated in no acute distress. The patient is oriented to time, place, and person. VITALS: Blood pressure 152/70, pulse 86, temperature 36.3 ?C (97.3 ?F), height 165.1 cm (5' 5 ), weight 73.5 kg (162 lb), SpO2 93 %. Body mass index is 26.96 kg/m?. Head: Normal cephalic, atraumatic Eyes: pupils are equally round, sclera are clear/anicteric Neck is supple with no tracheal deviation, no masses noted Respiratory: Normal respiratory excursion and pattern. Abdominal exam benign Extremities: no clubbing, cyanosis or edema. Neuro: non focal Psych: normal mood Assessment IMPRESSION: benign follicular right thyroid nodule PLAN: I have discussed the above with the patient. I have reassured patient that at this point in time, she has no clinical evidence of thyroid cancer. Patient to return to her PCP for medical care and follow up US of thyroid in one year. Patient to return to clinic if any worsening signs/symptoms,. Patient acknowledges the above. I have answered all questions to the patient?s satisfaction and the patient has no further qu (more content not included)... [facility] 08-24-2023 History of Presen t illness Narrative Leyla Riojas 1945 REFERRING PHYSICIAN: No ref. provider found CHIEF COMPLAINT: Follow Up (FNA Thyroid 08/24) HPI: The patient is a 77 year old female presents for discussion s/p US guided FNA of right thyroid nodule on 08/17/23. Pathology reveal benign follicular nodule Patient notes no problems from biopsy PAST MEDICAL HISTORY Diagnosis Date Bacterial pneumonia, unspecified Cardiac murmur Cervicalgia Cough Disorder of bone and cartilage, unspecified osteopenia Diverticulosis of colon (without mention of hemorrhage) Family history of malignant neoplasm of breast Fibromyalgia Lipoprotein deficiencies Myalgia and myositis, unspecified Peptic ulcer, unspecified site, unspecified as acute or chronic, without mention of hemorrhage or perforation Peripheral vascular disease, unspecified (HCC) PAST SURGICAL HISTORY Procedure Laterality Date ABD AORTA ANEURYSM REPAIR 11/2014 APPENDECTOMY 09/28/1964 ARTHROTOMY W/MENISCUS REPAIR KNEE Right 05/2015 BUNIONECTOMY, LAPIDUS-TYPE 06/2014 BX BREAST NEEDLE CORE W/O IMAGING GUIDANCE SPX 09/28/1998 lt breast- benign COLONOSCOPY FLX DX W/COLLJ SPEC WHEN PFRMD 09/07/2002 Colonoscopy COLONOSCOPY FLX DX W/COLLJ SPEC WHEN PFRMD 10/23/2011 Colonoscopy LIG/TRNSXJ FLP TUBE ABDL/VAG APPR UNI/BI 09/28/1971 Tubal ligation PAST SURGICAL HISTORY OF 09/28/1971 kidney and bladder polyps PAST SURGICAL HISTORY OF 09/28/2001 breast bx and mastectomy PAST SURGICAL HISTORY OF 12/01/2014 throacic abd aorta tear Ak Gen REMV CATARACT EXTRACAP,INSERT LENS Bilateral 2018 REVISE MEDIAN N/CARPAL TUNNEL SURG Left 08/2017 SIGMOIDOSCOPY FLX DX W/COLLJ SPEC BR/WA IF PFRMD 1990. Sigmoidoscopy, flexible SKIN BX, 1 LESION Left 08/2016 removal squamous cell- left check THYROID FINE NEEDLE ASPIRATION 08/17/2023 right thyroid nodule TOTAL ABDOMINAL HYSTERECT W/WO RMVL TUBE OVARY 09/28/1988 Hysterectomy, DANIELA Current Outpatient Medications Medication Sig Biotin 10,000 mcg cap Take 5,000 mcg by mouth once daily. calcium carbonate (CALCIUM 600) 600 mg calcium (1,500 mg) tab Take 600 mg by mouth once daily. gabapentin (NEURONTIN) 100 mg capsule Take 100 mg by mouth three times daily. vitamin D3/vitamin K2, MK4, (K2 PLUS D3 ORAL) Take 100 mcg by mouth once daily. melatonin 10 mg cap Take 5 mg by mouth once daily. polyethylene glycol 3350 (MIRALAX) 17 gram/dose powder Take 17 g by mouth as needed for constipation. Dissolve dose in 4 - 8 ounces of liquid and take as directed. vit C,Q-Dw-skpiz-lutein-zeaxan (PRESERVISION AREDS-2) 250-90-40-1 mg Take 1 capsule by mouth twice daily with meals. Omeprazole Magnesium (PRILOSEC OTC) 20 mg tablet Take 20 mg by mouth once daily. rosuvastatin (CRESTOR) 5 mg tablet Take 5 mg by mouth once daily. metoprolol succinate ER (TOPROL XL) 50 mg 24 hr tablet Take 100 mg by mouth once daily. aspirin, enteric coated (ASPIRIN, ENTERIC COATED) 81 mg EC tablet Take 81 mg by mouth once daily. D3/RED WINE/RESVERATROL/MALT (SUPER-D3+ ORAL) Take 4,000 Units by mouth once daily. VITAMIN B COMPLEX (B COMPLEX 1 ORAL) Take 1 tablet by mouth once daily. raloxifene (EVISTA) 60 mg ORAL tablet Take 60 mg by mouth once daily. amitriptyline 10 mg ORAL tablet Take 1 tablet by mouth daily at bedtime. No current facility-administered medications for this visit. ALLERGIES: Amoxil [Amoxicillin], Augmentin [Amoxicillin-Pot Clavulanate], Benzocaine, Cimetidine, Meloxicam, Joe [Other], Percocet [Oxycodone-Acetaminophen], and Steroids [Corticosteroids (Glucocorticoids)] REVIEW OF SYSTEMS: Denies pain Denies fevers PHYSICAL EXAMINATION: General: The patient is 77 year old female, well nourished, well hydrated in no acute distress. The patient is oriented to time, place, and person. VITALS: Blood pressure 152/70, pulse 86, temperature 36.3 C (97.3 F), height 165.1 cm (5' 5 ), weight 73.5 kg (162 lb), SpO2 93 %. Body mass index is 26.96 kg/m . Head: Normal cephalic, atraumatic Eyes: pupils are equally round, sclera are clear/anicteric Neck is supple with no tracheal deviation, no masses noted Respiratory: Normal respiratory excursion and pattern. Abdominal exam benign Extremities: no clubbing, cyanosis or edema. Neuro: non focal Psych: normal mood Assessment IMPRESSION: benign follicular right thyroid nodule PLAN: I have discussed the above with the patient. I have reassured patient that at this point in time, she has no clinical evidence of thyroid cancer. Patient to return to her PCP for medical care and follow up US of thyroid in one year. Patient to return to clinic if any worsening signs/symptoms,. Patient acknowledges the above. I have answered all questions to the patient s satisfaction and the patient has no further questions. I have confirmed and edited as necessary, the PFSH and ROS obtained by others. . Diagnoses: (E04.1) Thyroid nodule (primary encounter diagnosis) I spent a total of 11 minutes on the date of the service which included preparing to see the patient with review of any pertinent laboratory studies/radiological imaging/medical records, [id number] patient care, obtaining oral medical history from the patient in this encounter, counseling and educating the patient/family/caregiver, and completing appropriate medical documentation. Tamar Douglas MD documented in this encounter [facility] 08-17-2023 Note HNO ID: [id number] Author: Tamar Douglas MD Service: ? Author Type: Physician Type: Progress Notes Filed: 08/18/2023 7:50 PM Note Text: Leyla presents for US guided FNA of right thyroid nodule PROCEDURE NOTE: After informed consent was given and patient gives permission for the procedure, the patient was in the supine position with neck in slight extension. Appropriate time out protocol was followed. The ultrasound machine was used for real time imaging. The anterior neck skin was cleansed with a sterile surgical skin preparation. The skin and subcutaneous tissues were infiltrated with 1% xylocaine with epinephrine. The ultrasound transducer probe was brought up to localize the thyroid nodule. The right thyroid nodule was identified using the US transducer. It was in the mid right thyroid lobe. It was about 2.3 cm. A 22 G needle attached to a 10 cc syringe was inserted into the nodule under US guidance. Several passes were made to ensure obtaining enough material. The needle was withdrawn. Smear slides were made and also the specimen was placed in a formalin solution and forwarded to pathology. The above was repeated with a new 22 G needle attached to a 10 cc syringe. This was done to ensure adequate sampling. This process was again repeated until adequate sampling was deemed to be achieved. The specimens were then forwarded to pathology. Hemostasis was achieved by pressure. A small bandaid was applied and patient told that she could remove it tomorrow. No evidence of bleeding noted. Patient tolerated procedure well. Complications - none EBL - minimal PLAN: Patient given wound care instructions by clinic staff. Patient will follow up next week for discussion of results. Patient acknowledges the above. [facility] 08-10-2023 Note HNO ID: [id number] Author: Sae Marie MD Service: ? Author Type: Physician Type: Progress Notes Filed: 08/10/2023 6:43 PM Note Text: [facility] ALLERGY AND IMMUNOLOGY ESTABLISHED VISIT Patient Name: Leyla Riojas CHIEF COMPLAINT: Patient presents with: Established Patient: Local anesthetic testing INTERVAL HISTORY: Leyla Riojas is a 77 year old female with a history of hyperparathyroidism, multinodular goiter who presents for local anesthetic testing. LUCY 07/06/2023. She presents for allergy skin testing to local anesthetics today. She has no new complaints or issues. INITIAL HPI 07/06/2023: She was referred by Dr. Zaki Garay for local anesthetic allergy evaluation. In September 2021, she was getting dental fillings for cavities at Dr. Kasper's office. He had applied a benzocaine viscous solution to her gums and immediately she developed throat tightness and shortness of breath. She was given a glass of water and she felt better. There were no medications given. There was no visible angioedema, hives, or hypotension. That same day, she was given novocaine which she tolerated and the procedure was completed uneventfully. She is not sure if latex gloves were used, but there were no other medications given prior to the episode (including NSAIDs or opiates). Dr. Garay stated that he would like to use lidocaine for a thyroid biopsy to further evaluate her multinodular goiter. PAST MEDICAL HISTORY Diagnosis Date Bacterial pneumonia, unspecified Cardiac murmur Cervicalgia Cough Disorder of bone and cartilage, unspecified osteopenia Diverticulosis of colon (without mention of hemorrhage) Family history of malignant neoplasm of breast Fibromyalgia Lipoprotein deficiencies Myalgia and myositis, unspecified Peptic ulcer, unspecified site, unspecified as acute or chronic, without mention of hemorrhage or perforation Peripheral vascular disease, unspecified (HCC) ACTIVE PROBLEM LIST Nonspecific Abnormal Findings On Radiological Or Other Examinations of The Breast FAMILY HX-BREAST MALIG Cough Lipoprotein Deficiencies Disorder of Bone and Cartilage, Unspecified Myalgia and Myositis, Unspecified Cervicalgia Fibromyalgia Hyperparathyroidism (Hcc) PAST SURGICAL HISTORY Procedure Laterality Date ABD AORTA ANEURYSM REPAIR 11/2014 APPENDECTOMY 09/28/1964 ARTHROTOMY W/MENISCUS REPAIR KNEE Right 05/2015 BUNIONECTOMY, LAPIDUS-TYPE 06/2014 BX BREAST NEEDLE CORE W/O IMAGING GUIDANCE SPX 09/28/1998 lt breast- benign COLONOSCOPY FLX DX W/COLLJ SPEC WHEN PFRMD 09/07/2002 Colonoscopy COLONOSCOPY FLX DX W/COLLJ SPEC WHEN PFRMD 10/23/2011 Colonoscopy LIG/TRNSXJ FLP TUBE ABDL/VAG APPR UNI/BI 09/28/1971 Tubal ligation PAST SURGICAL HISTORY OF 09/28/1971 kidney and bladder polyps PAST SURGICAL HISTORY OF 09/28/2001 breast bx and mastectomy PAST SURGICAL HISTORY OF 12/01/2014 throacic abd aorta tear Ak Gen REMV CATARACT EXTRACAP,INSERT LENS Bilateral 2018 REVISE MEDIAN N/CARPAL TUNNEL SURG Left 08/2017 SIGMOIDOSCOPY FLX DX W/COLLJ SPEC BR/WA IF PFRMD 1990. Sigmoidoscopy, flexible SKIN BX, 1 LESION Left 08/2016 removal squamous cell- left check TOTAL ABDOMINAL HYSTERECT W/WO RMVL TUBE OVARY 09/28/1988 Hysterectomy, DANIELA FAMILY HISTORY Problem Relation Age of Onset Breast Cancer Mother 67 Alcohol/Drug Father Cancer Sister Diabetes Sister Cancer Brother bone Breast Cancer Maternal Aunt 50's Allergic rhinitis:yes: son. Asthma: no. Eczema: no. Cystic fibrosis: no. Immunodeficiency: no. 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 calcium carbonate (CALCIUM 600) 600 mg calcium (1,500 mg) tab Take 600 mg by mouth once daily. gabapentin (NEURONTIN) 100 mg capsule Take 100 mg by mouth three times daily. vitamin D3/vitamin K2, MK4, (K2 PLUS D3 ORAL) Take 100 mcg by mouth once daily. melatonin 10 mg cap Take 5 mg by mouth once daily. polyethylene glycol 3350 (MIRALAX) 17 gram/dose powder Take 17 g by mouth as needed for constipation. Dissolve dose in 4 - 8 ounces of liquid and take as directed. vit C,V-Vf-mccmh-lutein-zeaxan (PRESERVISION AREDS-2) 250-90-40-1 (more content not included)... [facility] 08-10-2023 History of Presen t illness Narrative [facility] ALLERGY & IMMUNOLOGY ESTABLISHED VISIT Patient Name: Leyla Riojas CHIEF COMPLAINT: Patient presents with: Established Patient: Local anesthetic testing INTERVAL HISTORY: Leyla Riojas is a 77 year old female with a history of hyperparathyroidism, multinodular goiter who presents for local anesthetic testing. LUCY 07/06/2023. She presents for allergy skin testing to local anesthetics today. She has no new complaints or issues. INITIAL HPI 07/06/2023: She was referred by Dr. Zaki Garay for local anesthetic allergy evaluation. In September 2021, she was getting dental fillings for cavities at Dr. Kasper's office. He had applied a benzocaine viscous solution to her gums and immediately she developed throat tightness and shortness of breath. She was given a glass of water and she felt better. There were no medications given. There was no visible angioedema, hives, or hypotension. That same day, she was given novocaine which she tolerated and the procedure was completed uneventfully. She is not sure if latex gloves were used, but there were no other medications given prior to the episode (including NSAIDs or opiates). Dr. Garay stated that he would like to use lidocaine for a thyroid biopsy to further evaluate her multinodular goiter. PAST MEDICAL HISTORY Diagnosis Date Bacterial pneumonia, unspecified Cardiac murmur Cervicalgia Cough Disorder of bone and cartilage, unspecified osteopenia Diverticulosis of colon (without mention of hemorrhage) Family history of malignant neoplasm of breast Fibromyalgia Lipoprotein deficiencies Myalgia and myositis, unspecified Peptic ulcer, unspecified site, unspecified as acute or chronic, without mention of hemorrhage or perforation Peripheral vascular disease, unspecified (HCC) ACTIVE PROBLEM LIST Nonspecific Abnormal Findings On Radiological Or Other Examinations of The Breast FAMILY HX-BREAST MALIG Cough Lipoprotein Deficiencies Disorder of Bone and Cartilage, Unspecified Myalgia and Myositis, Unspecified Cervicalgia Fibromyalgia Hyperparathyroidism (Hcc) PAST SURGICAL HISTORY Procedure Laterality Date ABD AORTA ANEURYSM REPAIR 11/2014 APPENDECTOMY 09/28/1964 ARTHROTOMY W/MENISCUS REPAIR KNEE Right 05/2015 BUNIONECTOMY, LAPIDUS-TYPE 06/2014 BX BREAST NEEDLE CORE W/O IMAGING GUIDANCE SPX 09/28/1998 lt breast- benign COLONOSCOPY FLX DX W/COLLJ SPEC WHEN PFRMD 09/07/2002 Colonoscopy COLONOSCOPY FLX DX W/COLLJ SPEC WHEN PFRMD 10/23/2011 Colonoscopy LIG/TRNSXJ FLP TUBE ABDL/VAG APPR UNI/BI 09/28/1971 Tubal ligation PAST SURGICAL HISTORY OF 09/28/1971 kidney and bladder polyps PAST SURGICAL HISTORY OF 09/28/2001 breast bx and mastectomy PAST SURGICAL HISTORY OF 12/01/2014 throacic abd aorta tear Ak Gen REMV CATARACT EXTRACAP,INSERT LENS Bilateral 2018 REVISE MEDIAN N/CARPAL TUNNEL SURG Left 08/2017 SIGMOIDOSCOPY FLX DX W/COLLJ SPEC BR/WA IF PFRMD 1990. Sigmoidoscopy, flexible SKIN BX, 1 LESION Left 08/2016 removal squamous cell- left check TOTAL ABDOMINAL HYSTERECT W/WO RMVL TUBE OVARY 09/28/1988 Hysterectomy, DANIELA FAMILY HISTORY Problem Relation Age of Onset Breast Cancer Mother 67 Alcohol/Drug Father Cancer Sister Diabetes Sister Cancer Brother bone Breast Cancer Maternal Aunt 50's Allergic rhinitis:yes: son. Asthma: no. Eczema: no. Cystic fibrosis: no. Immunodeficiency: no. 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 calcium carbonate (CALCIUM 600) 600 mg calcium (1,500 mg) tab Take 600 mg by mouth once daily. gabapentin (NEURONTIN) 100 mg capsule Take 100 mg by mouth three times daily. vitamin D3/vitamin K2, MK4, (K2 PLUS D3 ORAL) Take 100 mcg by mouth once daily. melatonin 10 mg cap Take 5 mg by mouth once daily. polyethylene glycol 3350 (MIRALAX) 17 gram/dose powder Take 17 g by mouth as needed for constipation. Dissolve dose in 4 - 8 ounces of liquid and take as directed. vit C,E-So-jneoa-lutein-zeaxan (PRESERVISION AREDS-2) 250-90-40-1 mg Take 1 capsule by mouth twice daily with meals. Omeprazole Magnesium (PRILOSEC OTC) 20 mg tablet Take 20 mg by mouth once daily. rosuvastatin (CRESTOR) 5 mg tablet Take 5 mg by mouth once daily. metoprolol succinate ER (TOPROL XL) 50 mg 24 hr tablet Take 100 mg by mouth once daily. aspirin, enteric coated (ASPIRIN, ENTERIC COATED) 81 mg EC tablet Take 81 mg by mouth once daily. D3/RED WINE/RESVERATROL/MALT (SUPER-D3+ ORAL) Take 4,000 Units by mouth once daily. VITAMIN B COMPLEX (B COMPLEX 1 ORAL) Take 1 tablet by mouth once daily. amitriptyline 10 mg ORAL tablet Take 1 tablet by mouth daily at bedtime. raloxifene (EVISTA) 60 mg ORAL tablet Take 1 tablet by mouth once daily. (Patient not taking: Reported on 05/19/2023) REVIEW OF SYSTEMS: HEENT: negative RESPIRATORY: No cough, hemoptysis, recent chest infection, wheezing CONSTITUTIONAL: No acute distress. No weight loss or gain, no fevers or chills CARDIOVASCULAR: negative for chest pain, leg swelling or palpitations. GASTROINTESTINAL: Negative for abdominal discomfort, No blood in stools or black stools MUSCULOSKELETAL: negative for joint pain or swelling, back pain or muscle pain. NEUROLOGIC:Negative for focal numbness or weakness, headaches and dizziness or syncope. DERM/SKIN: no new rashes, hives, or skin eruptions. PSYCHIATRIC: Negative for sleep disturbance, mood disorder and recent psychosocial stressors HEMATOLOGIC/LYMPHATIC/IMMUNOLOGI C:Negative for cold or heat intolerance, polyuria, polydipsia and goiter. PHYSICAL EXAM: BP 164/72 Pulse 72 SpO2 97% General: Awake, alert, cooperative, NAD Head: Normocephalic, atraumatic Eyes: PERRL, EOMI, no exudates, no hemorrhage, no scleral injection, no icterus, no allergic shiners Ears: Ear canals clear, TM's clear bilaterally with normal light reflex Nose: No external lesions, nasal turbinates normal, no traverse nasal crease, no polyps noted, sinuses non tender on palpation Oropharynx: MMM, no cobblestoning of mucosa, no tonsillar hypertrophy or erythema, uvula midline, no tongue swelling, no ulcerations Neck: Supple, no lymphadenopathy Lung: Breathing comfortably, good air exchange, symmetric expansion, CTAB, no wheezes, no crackles Cardiovascular: RRR, normal S1 and S2, no murmur Abdomen: Soft, non-tender, nondistended Extremities: Warm and well perfused Skin: Normal turgor, no rashes Neuropsych: Alert, oriented x3, normal gait DATA: CBC Latest Ref Rng & Units 09/14/2002 WBC 4.0 - 11.0 k/uL 8.90 RBC 4.2 - 5.4 M/uL 4.91 HEMOGLOBIN 12.0 - 16.0 g/dL 16.0 HEMATOCRIT 37 - 47 % 47.1(A) MCV 80 - 100 fL 95.9 MCH 27 - 34 pG 32.6 MCHC 32 - 36 % 34.0 RDW-CV 11.7 - 15.0 % 13.1 PLATELETS 150 - 400 K/uL 311 MPV 7.3 - 11.1 fL 11.3(A) CBC Latest Ref Rng & Units 09/14/2002 WBC 4.0 - 11.0 k/uL 8.90 RBC 4.2 - 5.4 M/uL 4.91 HEMOGLOBIN 12.0 - 16.0 g/dL 16.0 HEMATOCRIT 37 - 47 % 47.1(A) MCV 80 - 100 fL 95.9 MCH 27 - 34 pG 32.6 MCHC 32 - 36 % 34.0 RDW-CV 11.7 - 15.0 % 13.1 PLATELETS 150 - 400 K/uL 311 MPV 7.3 - 11.1 fL 11.3(A) Allergy Skin Testin08/10/2023 Skin testing negative to latex, bupivacaine, and lidocaine. Assessment/Recommendations: 1. Adverse drug reaction, subsequent encounter Comment: She had immediate throat tightness and shortness of breath after exposure to a benzocaine viscous solution at dental office during cavity repair. Skin testing today was negative to latex, bupivacaine, and lidocaine. She tolerated a subcutaneous challenge to lidocaine in the office without an immediate hypersensitivity reaction. -Patient may receive lidocaine in the future without precautions -No evidence of latex allergy -Allergy tab updated -Consult A&I if other local anesthetics are needed in the future Follow-up as needed - patient will return sooner should new symptoms or problems arise. I spent a total of 21 minutes on the date of the service which included preparing to see the patient, [id number] patient care, completing clinical documentation, obtaining and/or reviewing separately obtained history, performing a medically appropriate examination, counseling and educating the patient/family/caregiver, ordering medications, tests, or procedures, communicating with other HCPs (not separately reported), independently interpreting results (not separately reported), communicating results to the patient/family/caregiver, and care coordination (not separately reported). Sae Marie M.D. Allergy and Clinical Immunology [facility] documented in this encounter [facility] 08-10-2023 Nurse Note Patient returning for local anesthetic skin testing. Denies antihistamine use in past 5 days. Has been off amitriptyline for 2 weeks. documented in this encounter [facility] 07-06-2023 Note HNO ID: [id number] Author: Sae Marie MD Service: ? Author Type: Physician Type: Progress Notes Filed: 07/14/2023 8:32 AM Note Text: [facility] ALLERGY AND IMMUNOLOGY CONSULT Patient Name: Leyla Riojas PRIMARY CARE PHYSICIAN: Nelia Smith, , DO REASON FOR CONSULT: drug allergy REQUESTING PHYSICIAN: Dr. Zaki Garay My final recommendations will be communicated to the requesting health care provider by way of the shared medical record for internal providers or letter via the [employer] for external providers. CHIEF COMPLAINT: Patient presents with: New Patient: Testing for lidocaine HISTORY OF PRESENT ILLNESS: Leyla Riojas is a 77 year old female with a history of hyperparathyroidism, multinodular goiter who presents for drug allergy evaluation: She was referred by Dr. Zaki Garay for local anesthetic allergy evaluation. In September 2021, she was getting dental fillings for cavities at Dr. Kasper's office. He had applied a benzocaine viscous solution to her gums and immediately she developed throat tightness and shortness of breath. She was given a glass of water and she felt better. There were no medications given. There was no visible angioedema, hives, or hypotension. That same day, she was given novocaine which she tolerated and the procedure was completed uneventfully. She is not sure if latex gloves were used, but there were no other medications given prior to the episode (including NSAIDs or opiates). Dr. Garay stated that he would like to use lidocaine for a thyroid biopsy to further evaluate her multinodular goiter. PAST MEDICAL HISTORY Diagnosis Date Bacterial pneumonia, unspecified Cardiac murmur Cervicalgia Cough Disorder of bone and cartilage, unspecified osteopenia Diverticulosis of colon (without mention of hemorrhage) Family history of malignant neoplasm of breast Fibromyalgia Lipoprotein deficiencies Myalgia and myositis, unspecified Peptic ulcer, unspecified site, unspecified as acute or chronic, without mention of hemorrhage or perforation Peripheral vascular disease, unspecified (HCC) ACTIVE PROBLEM LIST Nonspecific Abnormal Findings On Radiological Or Other Examinations of The Breast FAMILY HX-BREAST MALIG Cough Lipoprotein Deficiencies Disorder of Bone and Cartilage, Unspecified Myalgia and Myositis, Unspecified Cervicalgia Fibromyalgia Hyperparathyroidism (Hcc) PAST SURGICAL HISTORY Procedure Laterality Date ABD AORTA ANEURYSM REPAIR 11/2014 APPENDECTOMY 09/28/1964 ARTHROTOMY W/MENISCUS REPAIR KNEE Right 05/2015 BUNIONECTOMY, LAPIDUS-TYPE 06/2014 BX BREAST NEEDLE CORE W/O IMAGING GUIDANCE SPX 09/28/1998 lt breast- benign COLONOSCOPY FLX DX W/COLLJ SPEC WHEN PFRMD 09/07/2002 Colonoscopy COLONOSCOPY FLX DX W/COLLJ SPEC WHEN PFRMD 10/23/2011 Colonoscopy LIG/TRNSXJ FLP TUBE ABDL/VAG APPR UNI/BI 09/28/1971 Tubal ligation PAST SURGICAL HISTORY OF 09/28/1971 kidney and bladder polyps PAST SURGICAL HISTORY OF 09/28/2001 breast bx and mastectomy PAST SURGICAL HISTORY OF 12/01/2014 throacic abd aorta tear Ak Gen REMV CATARACT EXTRACAP,INSERT LENS Bilateral 2018 REVISE MEDIAN N/CARPAL TUNNEL SURG Left 08/2017 SIGMOIDOSCOPY FLX DX W/COLLJ SPEC BR/WA IF PFRMD 1990. Sigmoidoscopy, flexible SKIN BX, 1 LESION Left 08/2016 removal squamous cell- left check TOTAL ABDOMINAL HYSTERECT W/WO RMVL TUBE OVARY 09/28/1988 Hysterectomy, DANIELA FAMILY HISTORY Problem Relation Age of Onset Breast Cancer Mother 67 Alcohol/Drug Father Cancer Sister Diabetes Sister Cancer Brother bone Breast Cancer Maternal Aunt 50's Allergic rhinitis:yes: son. Asthma: no. Eczema: no. Cystic fibrosis: no. Immunodeficiency: no. 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 calcium carbonate (CALCIUM 600) 600 mg calcium (1,500 mg) tab Take 600 mg by mouth once daily. gabapentin (NEURONTIN) 100 mg capsule Take 100 mg by mouth three times daily. vitamin D3/vitamin K2, MK4, (K2 PLUS D3 ORAL) Take 100 mcg by mouth once daily. melatonin 10 mg cap Take 5 mg by mouth once daily. polyethylene glycol 3350 (MIRALAX) 17 gram/dose powder Take 17 g by mouth as needed for constipation. Dissolve dose in 4 - 8 ounces of liquid and take as d (more content not included)... [facility] 07-06-2023 Instructions Sae Marie MD - 07/06/2023 1:44 PM EDT 1) Please speak with your PCP about coming off of the Amitriptyline before your skin testing appointment. 2) What medications to stop before allergy testing (skin testing, medication or food oral challenges) in order to be able to do this test: You should STOP the following medications for 3-4 days before testing: -Diphenhydramine (Benadryl) You should STOP the following medications for 5-7 days before testing: -Fexofenadine (Brittanie, including Brittanie-D) -Cetirizine (Zyrtec, including Zyrtec-D) -Levocetirizine (Xyzal) -Loratadine (Claritin, including Claritin-D) -Desloratidine (Clarinex) -Famotidine (Pepcid) -Ranitidine (Zantac) -Cimetidine (Tagamet) -Nizatidine (Axid) -Tylenol Allergy -Tylenol Sinus -All [id number] cold, sinus and cough medicines -Hydroxyzine (Atarax) -Ketotifen (Zatiden) -Meclizine (Bonine/Antivert) -Promethazine (Phenergan) -Buproprion (Wellbutrin) -Eszopiclone (Lunesta) -Trazadone (Oleptro) -Zolpidem (Ambien) -Mirtazapine (Remeron) -Quetiapine (Seroquel) -Azelastine (Astelin/Astepro) nose spray -Olapatadine (Patanase) nose spray -Atrovent (Ipratropium) nose spray -Cromolyn (Nasalcrom) nose spray -Azelastine (Optivar) eye drops -Olapatadine (Pataday, Patanol, Pazeo) eye drops -Clonazepam (Klonopin)* -Diazepam (Valium)* -Lorazepam (Ativan)* -Midazolam (Versed)* If any of those marked with * are taken daily (for instance seizures or spasticity) you MUST FIRST CLEAR THIS WITH PROVIDER PRESCRIBING THIS MEDICATION BEFORE STOPPING) Herbal supplements: -Licorice -Green tea -Saw palmetto -Anthony's wort -Feverfew -Milk thistle -Astragalus You should STOP the following topical medications to your forearms & back if you are adult OR to back if you are a child for ~21 days before testing (especially if the steroid cream is a more potent cream): Topical corticosteroid creams, lotions and ointments such as: -Hydrocortisone -Triamcinolone -Clobetasol -Halobetasol -Betmethasone -Fluocinonide -Halcinonide -Mometasone -Halometasone -Fluocinolone -Desonide You should STOP the following medications for ~7-14 days before testing (YOU MUST FIRST CONFIRM THIS IS OK WITH PRESCRIBING PROVIDER OR PSYCHIATRIST BEFORE STOPPING): Tricyclic anti-depressants -Amitriptyline/Elavil -Amoxapine -Clomipramine/Anafranil -Desipramine/Norpramin -Doxepin/Sinequan -Imipramine/Tofranil -Nortriptyline/Pamelor -Protriptyline/Vivactil -Imipramine/Surmontil -Cyproheptadine (Periactin) You do NOT stop the following medications: -All asthma inhalers -Leukotriene receptor antagonists -Montelukast/Singulair -Zafirlukast/Accolate -Zyflo/Zileuton -Antibiotics -Guaifenesin (Mucinex) -Dextromethorphanphenylephrine, pseudoephedrine (Sudafed) - control pills -CARRIE inhibitors (the -prils ) -Cyclosporine (Neoral/Sandimmune/Gengraf) -Corticosteroid nose sprays: -Budesonide (Rhinocort), -Beclomethasone (Qnasl/Beconase/Vancenase) -Fluticasone (Veramyst/Ticanase/Xhance/Flonas e/Flonase Sensimist) -Mometasone (Nasonex) -Triamcinolone (Nasacort/Allernaze) -Ciclesonide (Zetonna/Omnaris) -Azelastine&fluticasone (Dymista) -Flunisolide (Nasarel) -Oxymetazoline (Afrin) nose spray -Proton pump inhibitors (PPIs): -Esomeprazole (Nexium) -Lansoprazole (Prevacid) -Omeprazole (Prilosec/Zegerid) -Pantoprazole (Protonix) -Rabeprazole (Aciphex) -Dexlansoprazole (Kapidex) -SNRI anti-depressants: -Duloxetine (Cymbalta) -Venlafaxine (Effexor) -Desvenlafaxine (Pristiq) -SSRI anti-depressants: -Escitalopram (Lexapro) -Citalopram (Celexaa) -Fluoxetine (Prozac) -Paroxetine (Paxil) -Sertraline (Zoloft) Note: Short oral steroid courses should not affect testing Consider stopping the following medications for 24 hours prior to oral challenge or desensitization (as they can blunt efforts of resuscitation should they be required): -Beta blockers (the -olols ) -CARRIE inhibitors (the -prils ) documented in this encounter [facility] 07-06-2023 History of Presen t illness Narrative [facility] ALLERGY & IMMUNOLOGY CONSULT Patient Name: Leyla Riojas PRIMARY CARE PHYSICIAN: Nelia Smith DO, DO REASON FOR CONSULT: drug allergy REQUESTING PHYSICIAN: Self My final recommendations will be communicated to the requesting health care provider by way of the shared medical record for internal providers or letter via the [employer] for external providers. CHIEF COMPLAINT: Patient presents with: New Patient: Testing for lidocaine HISTORY OF PRESENT ILLNESS: Leyla Riojas is a 77 year old female with a history of hyperparathyroidism, multinodular goiter who presents for drug allergy evaluation: She was referred by Dr. Garay for local anesthetic allergy evaluation. In September 2021, she was getting dental fillings for cavities at Dr. Kasper's office. He had applied a benzocaine viscous solution to her gums and immediately she developed throat tightness and shortness of breath. She was given a glass of water and she felt better. There were no medications given. There was no visible angioedema, hives, or hypotension. That same day, she was given novocaine which she tolerated and the procedure was completed uneventfully. She is not sure if latex gloves were used, but there were no other medications given prior to the episode (including NSAIDs or opiates). Dr. Garay stated that he would like to use lidocaine for a thyroid biopsy to further evaluate her multinodular goiter. PAST MEDICAL HISTORY Diagnosis Date Bacterial pneumonia, unspecified Cardiac murmur Cervicalgia Cough Disorder of bone and cartilage, unspecified osteopenia Diverticulosis of colon (without mention of hemorrhage) Family history of malignant neoplasm of breast Fibromyalgia Lipoprotein deficiencies Myalgia and myositis, unspecified Peptic ulcer, unspecified site, unspecified as acute or chronic, without mention of hemorrhage or perforation Peripheral vascular disease, unspecified (HCC) ACTIVE PROBLEM LIST Nonspecific Abnormal Findings On Radiological Or Other Examinations of The Breast FAMILY HX-BREAST MALIG Cough Lipoprotein Deficiencies Disorder of Bone and Cartilage, Unspecified Myalgia and Myositis, Unspecified Cervicalgia Fibromyalgia Hyperparathyroidism (Hcc) PAST SURGICAL HISTORY Procedure Laterality Date ABD AORTA ANEURYSM REPAIR 11/2014 APPENDECTOMY 09/28/1964 ARTHROTOMY W/MENISCUS REPAIR KNEE Right 05/2015 BUNIONECTOMY, LAPIDUS-TYPE 06/2014 BX BREAST NEEDLE CORE W/O IMAGING GUIDANCE SPX 09/28/1998 lt breast- benign COLONOSCOPY FLX DX W/COLLJ SPEC WHEN PFRMD 09/07/2002 Colonoscopy COLONOSCOPY FLX DX W/COLLJ SPEC WHEN PFRMD 10/23/2011 Colonoscopy LIG/TRNSXJ FLP TUBE ABDL/VAG APPR UNI/BI 09/28/1971 Tubal ligation PAST SURGICAL HISTORY OF 09/28/1971 kidney and bladder polyps PAST SURGICAL HISTORY OF 09/28/2001 breast bx and mastectomy PAST SURGICAL HISTORY OF 12/01/2014 throacic abd aorta tear Ak Gen REMV CATARACT EXTRACAP,INSERT LENS Bilateral 2018 REVISE MEDIAN N/CARPAL TUNNEL SURG Left 08/2017 SIGMOIDOSCOPY FLX DX W/COLLJ SPEC BR/WA IF PFRMD 1990. Sigmoidoscopy, flexible SKIN BX, 1 LESION Left 08/2016 removal squamous cell- left check TOTAL ABDOMINAL HYSTERECT W/WO RMVL TUBE OVARY 09/28/1988 Hysterectomy, DANIELA FAMILY HISTORY Problem Relation Age of Onset Breast Cancer Mother 67 Alcohol/Drug Father Cancer Sister Diabetes Sister Cancer Brother bone Breast Cancer Maternal Aunt 50's Allergic rhinitis:yes: son. Asthma: no. Eczema: no. Cystic fibrosis: no. Immunodeficiency: no. 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 calcium carbonate (CALCIUM 600) 600 mg calcium (1,500 mg) tab Take 600 mg by mouth once daily. gabapentin (NEURONTIN) 100 mg capsule Take 100 mg by mouth three times daily. vitamin D3/vitamin K2, MK4, (K2 PLUS D3 ORAL) Take 100 mcg by mouth once daily. melatonin 10 mg cap Take 5 mg by mouth once daily. polyethylene glycol 3350 (MIRALAX) 17 gram/dose powder Take 17 g by mouth as needed for constipation. Dissolve dose in 4 - 8 ounces of liquid and take as directed. vit C,F-Io-lmwps-lutein-zeaxan (PRESERVISION AREDS-2) 250-90-40-1 mg Take 1 capsule by mouth twice daily with meals. Omeprazole Magnesium (PRILOSEC OTC) 20 mg tablet Take 20 mg by mouth once daily. rosuvastatin (CRESTOR) 5 mg tablet Take 5 mg by mouth once daily. metoprolol succinate ER (TOPROL XL) 50 mg 24 hr tablet Take 100 mg by mouth once daily. aspirin, enteric coated (ASPIRIN, ENTERIC COATED) 81 mg EC tablet Take 81 mg by mouth once daily. meloxicam (MOBIC) 15 mg tablet Take 15 mg by mouth once daily. (Patient not taking: Reported on 05/19/2023) D3/RED WINE/RESVERATROL/MALT (SUPER-D3+ ORAL) Take 4,000 Units by mouth once daily. VITAMIN B COMPLEX (B COMPLEX 1 ORAL) Take 1 tablet by mouth once daily. lansoprazole (PREVACID) 15 mg ORAL capsule Take 1 capsule by mouth once daily. Only taking as needed. (Patient not taking: Reported on 05/19/2023) amitriptyline 10 mg ORAL tablet Take 1 tablet by mouth daily at bedtime. raloxifene (EVISTA) 60 mg ORAL tablet Take 1 tablet by mouth once daily. (Patient not taking: Reported on 05/19/2023) Lacto gasseri-B bifid-B longum (GemPhones) 1.5 billion cell ORAL Cap Take by mouth. as directed. (Patient not taking: Reported on 05/19/2023) ADVIL 200MG CAPLET 2-3 tabs qid (Patient not taking: Reported on 05/19/2023) MULTIVITAMIN TABLET Take one(1) tablet daily. (Patient not taking: Reported on 05/19/2023) MULTIVITAMIN TABLET Take one(1) tablet daily. (Patient not taking: Reported on 05/19/2023) REVIEW OF SYSTEMS: HEENT: negative RESPIRATORY: No cough, hemoptysis, recent chest infection, wheezing CONSTITUTIONAL: No acute distress. No weight loss or gain, no fevers or chills CARDIOVASCULAR: negative for chest pain, leg swelling or palpitations. GASTROINTESTINAL: Negative for abdominal discomfort, No blood in stools or black stools MUSCULOSKELETAL: negative for joint pain or swelling, back pain or muscle pain. NEUROLOGIC:Negative for focal numbness or weakness, headaches and dizziness or syncope. DERM/SKIN: no new rashes, hives, or skin eruptions. PSYCHIATRIC: Negative for sleep disturbance, mood disorder and recent psychosocial stressors HEMATOLOGIC/LYMPHATIC/IMMUNOLOGI C:Negative for cold or heat intolerance, polyuria, polydipsia and goiter. PHYSICAL EXAM: BP 161/73 Pulse 66 Wt 162 lb (73.5kg) SpO2 97% General: Awake, alert, cooperative, NAD Head: Normocephalic, atraumatic Eyes: PERRL, EOMI, no exudates, no hemorrhage, no scleral injection, no icterus, no allergic shiners Ears: Ear canals clear, TM's clear bilaterally with normal light reflex Nose: No external lesions, nasal turbinates normal, no traverse nasal crease, no polyps noted, sinuses non tender on palpation Oropharynx: MMM, no cobblestoning of mucosa, no tonsillar hypertrophy or erythema, uvula midline, no tongue swelling, no ulcerations Neck: Supple, no lymphadenopathy Lung: Breathing comfortably, good air exchange, symmetric expansion, CTAB, no wheezes, no crackles Cardiovascular: RRR, normal S1 and S2, no murmur Abdomen: Soft, non-tender, nondistended Extremities: Warm and well perfused Skin: Normal turgor, no rashes Neuropsych: Alert, oriented x3, normal gait DATA: CBC Latest Ref Rng & Units 09/14/2002 WBC 4.0 - 11.0 k/uL 8.90 RBC 4.2 - 5.4 M/uL 4.91 HEMOGLOBIN 12.0 - 16.0 g/dL 16.0 HEMATOCRIT 37 - 47 % 47.1(A) MCV 80 - 100 fL 95.9 MCH 27 - 34 pG 32.6 MCHC 32 - 36 % 34.0 RDW-CV 11.7 - 15.0 % 13.1 PLATELETS 150 - 400 K/uL 311 MPV 7.3 - 11.1 fL 11.3(A) CBC Latest Ref Rng & Units 09/14/2002 WBC 4.0 - 11.0 k/uL 8.90 RBC 4.2 - 5.4 M/uL 4.91 HEMOGLOBIN 12.0 - 16.0 g/dL 16.0 HEMATOCRIT 37 - 47 % 47.1(A) MCV 80 - 100 fL 95.9 MCH 27 - 34 pG 32.6 MCHC 32 - 36 % 34.0 RDW-CV 11.7 - 15.0 % 13.1 PLATELETS 150 - 400 K/uL 311 MPV 7.3 - 11.1 fL 11.3(A) Assessment/Recommendations: 1. Adverse drug reaction, initial encounter 2. Thyroid nodule Comment: She was referred for anesthetic testing prior to upcoming thyroid biopsy. She had immediate throat tightness and shortness of breath after exposure to a benzocaine viscous solution at dental office. Episode may have been anxiety related given that symptoms subsided without medical intervention. -Return for skin testing to local anesthetics. Will need to come off Amitriptyline for at least 7 days prior to testing and patient was agreeable. -Will perform [id number] testing to benzocaine. In addition, will perform prick and intradermal testing to lidocaine and bupivacaine. -Skin testing to latex at next office visit Follow-up for skin testing in 2-3 weeks- patient will return sooner should new symptoms or problems arise. I spent a total of 41 minutes on the date of the service which included preparing to see the patient, [id number] patient care, completing clinical documentation, obtaining and/or reviewing separately obtained history, performing a medically appropriate examination, counseling and educating the patient/family/caregiver, ordering medications, tests, or procedures, and care coordination (not separately reported). Sae Marie M.D. Allergy and Clinical Immunology [facility] documented in this encounter [facility] 07-06-2023 Nurse Note Here for possible lidocaine reaction. She needs a thyroid biopsy referred by surgeon documented in this encounter [facility] 06-11-2023 Miscellaneous Notes Patient call reporting trouble scheduling with chartered financial analyst regarding testing for medication allergy as noted in office visit on 05/26/2023. Transferred patient to [facility] and provided her with information for Nini Thomas MD. Eugenia Qureshi MA documented in this encounter [facility] 05-28-2023 Miscellaneous Notes handle this Received a call from Jada at [facility] about referral for allergy to Lidocaine. She states that they do not deal with medication allergies, they only can deal with airborne/environmental allergies. She has spoke with the patient. Please contact the patient with a new referral. documented in this encounter [facility] 05-26-2023 Note HNO ID: [id number] Author: Zaki Garay MD Service: ? Author Type: Physician Type: Progress Notes Filed: 05/26/2023 10:11 AM Note Text: Prior to the procedure today patient stated that she went into anaphylactic shock after she had a dental procedure a local was injected into her mouth. Luckily she told us this prior to us performing a fine-needle aspiration and I am going to send her to an chartered financial analyst so that we can get an accurate identification of truly what her allergies are. There will be no charge for today's visit [facility] 05-26-2023 Nurse Note Pt stated to Dr. Garay an Nurse prior to start of procedure, that she had an anaphylactic reaction to lidocaine gel used prior to dental procedure. Dr. Garay is referring her to chartered financial analyst. Pt prefers Dr. Duenas's office in [place]. Office note and fax sent over by this Nurse to get appointment scheduled.Omaira Hernandez RN documented in this encounter [facility] 05-26-2023 History of Presen t illness Narrative Prior to the procedure today patient stated that she went into anaphylactic shock after she had a dental procedure a local was injected into her mouth. Luckily she told us this prior to us performing a fine-needle aspiration and I am going to send her to an chartered financial analyst so that we can get an accurate identification of truly what her allergies are. There will be no charge for today's visit documented in this encounter [facility] 05-19-2023 Note HNO ID: [id number] Author: Zaki Garay MD Service: ? Author Type: Physician Type: Progress Notes Filed: 05/19/2023 10:03 AM Note Text: HISTORY AND PHYSICAL Leyla Hurt [place] 1945 REFERRING PHYSICIAN: Nelia Smith,* CHIEF COMPLAINT: Consult (Thyroid nodule) HPI: The patient is a 77 year old female with a complaint of a right thyroid nodule. This thyroid nodule was found on Ultrasound by [facility]. The patient denies pain, denies difficulty swallowing, deniesrapid enlargement of the neck, deniesdysphagia, denies a change in the voice, denies hot or cold intolerence. The patient has not a prior history of neck radiation treatment. The patient is being seen by me today at the request of Dr. Nelia Smith DO, for my opinion and advice regarding Multinodular goiter (primary encounter diagnosis). PAST MEDICAL HISTORY Diagnosis Date Bacterial pneumonia, unspecified Cardiac murmur Cervicalgia Cough Disorder of bone and cartilage, unspecified osteopenia Diverticulosis of colon (without mention of hemorrhage) Family history of malignant neoplasm of breast Fibromyalgia Lipoprotein deficiencies Myalgia and myositis, unspecified Peptic ulcer, unspecified site, unspecified as acute or chronic, without mention of hemorrhage or perforation Peripheral vascular disease, unspecified (HCC) PAST SURGICAL HISTORY Procedure Laterality Date ABD AORTA ANEURYSM REPAIR 11/2014 APPENDECTOMY 09/28/1964 ARTHROTOMY W/MENISCUS REPAIR KNEE Right 05/2015 BUNIONECTOMY, LAPIDUS-TYPE 06/2014 BX BREAST NEEDLE CORE W/O IMAGING GUIDANCE SPX 09/28/1998 lt breast- benign COLONOSCOPY FLX DX W/COLLJ SPEC WHEN PFRMD 09/07/2002 Colonoscopy COLONOSCOPY FLX DX W/COLLJ SPEC WHEN PFRMD 10/23/2011 Colonoscopy LIG/TRNSXJ FLP TUBE ABDL/VAG APPR UNI/BI 09/28/1971 Tubal ligation PAST SURGICAL HISTORY OF 09/28/1971 kidney and bladder polyps PAST SURGICAL HISTORY OF 09/28/2001 breast bx and mastectomy PAST SURGICAL HISTORY OF 12/01/2014 throacic abd aorta tear Ak Gen REMV CATARACT EXTRACAP,INSERT LENS Bilateral 2018 REVISE MEDIAN N/CARPAL TUNNEL SURG Left 08/2017 SIGMOIDOSCOPY FLX DX W/COLLJ SPEC BR/WA IF PFRMD 1990. Sigmoidoscopy, flexible SKIN BX, 1 LESION Left 08/2016 removal squamous cell- left check TOTAL ABDOMINAL HYSTERECT W/WO RMVL TUBE OVARY 09/28/1988 Hysterectomy, DANIELA Current Outpatient Medications Medication Sig Dispense Refill Biotin 10,000 mcg cap Take 5,000 mcg by mouth once daily. calcium carbonate (CALCIUM 600) 600 mg calcium (1,500 mg) tab Take 600 mg by mouth once daily. gabapentin (NEURONTIN) 100 mg capsule Take 100 mg by mouth three times daily. vitamin D3/vitamin K2, MK4, (K2 PLUS D3 ORAL) Take 100 mcg by mouth once daily. melatonin 10 mg cap Take 5 mg by mouth once daily. polyethylene glycol 3350 (MIRALAX) 17 gram/dose powder Take 17 g by mouth as needed for constipation. Dissolve dose in 4 - 8 ounces of liquid and take as directed. vit C,A-Ra-emytv-lutein-zeaxan (PRESERVISION AREDS-2) 250-90-40-1 mg Take 1 capsule by mouth twice daily with meals. Omeprazole Magnesium (PRILOSEC OTC) 20 mg tablet Take 20 mg by mouth once daily. rosuvastatin (CRESTOR) 5 mg tablet Take 5 mg by mouth once daily. metoprolol succinate ER (TOPROL XL) 50 mg 24 hr tablet Take 100 mg by mouth once daily. aspirin, enteric coated (ASPIRIN, ENTERIC COATED) 81 mg EC tablet Take 81 mg by mouth once daily. D3/RED WINE/RESVERATROL/MALT (SUPER-D3+ ORAL) Take 4,000 Units by mouth once daily. VITAMIN B COMPLEX (B COMPLEX 1 ORAL) Take 1 tablet by mouth once daily. amitriptyline 10 mg ORAL tablet Take 1 tablet by mouth daily at bedtime. 0 meloxicam (MOBIC) 15 mg tablet Take 15 mg by mouth once daily. (Patient not taking: Reported on 05/19/2023) lansoprazole (PREVACID) 15 mg ORAL capsule Take 1 capsule by mouth once daily. Only taking as needed. (Patient not taking: Reported on 05/19/2023) 0 raloxifene (EVISTA) 60 mg ORAL tablet Take 1 tablet by mouth once daily. (Patient not taking: Reported on 05/19/2023) 0 Lacto gasseri-B bifid-B longum (GemPhones) 1.5 billion cell ORAL Cap Take by mouth. as directed. (Patient not taking: Reported on 05/19/2023) 0 ADVIL 200MG CAPLET 2-3 tabs qid (Patient not taking: Reported on 05/19/2023) 0 MULTIVITAMIN TABLET Take one(1) tablet daily. (Patient not taking: Reported on 05/19/2023) 0 MULTIVITAMIN TABLET Take one(1) tablet daily. (Patient not taking: Reported on 05/19/2023) 0 No current facility-administered medications for this visit. ALLERGIES: Amoxil [Amoxicillin], Augmentin [Amoxicillin-Pot Clavulanate], Cimetidine, Egg Yolk, Joe [Other], Percocet [Oxycodone-Acetaminophen], and Steroids [Corticosteroids (Glucocorticoids)] PERSONAL HISTORY: Social History Tobacco Use Smoking status: Every Day Packs/day: .5 Types: Cigarettes Vaping Use Vaping Use: Never used Substance Use To (more content not included)... [facility] 05-19-2023 History of Presen t illness Narrative HISTORY AND PHYSICAL Leyla Riojas 1945 REFERRING PHYSICIAN: Nelia Smith,* CHIEF COMPLAINT: Consult (Thyroid nodule) HPI: The patient is a 77 year old female with a complaint of a right thyroid nodule. This thyroid nodule was found on Ultrasound by [facility]. The patient denies pain, denies difficulty swallowing, deniesrapid enlargement of the neck, deniesdysphagia, denies a change in the voice, denies hot or cold intolerence. The patient has not a prior history of neck radiation treatment. The patient is being seen by me today at the request of Dr. Nelia Smith, DO, DO for my opinion and advice regarding Multinodular goiter (primary encounter diagnosis). PAST MEDICAL HISTORY Diagnosis Date Bacterial pneumonia, unspecified Cardiac murmur Cervicalgia Cough Disorder of bone and cartilage, unspecified osteopenia Diverticulosis of colon (without mention of hemorrhage) Family history of malignant neoplasm of breast Fibromyalgia Lipoprotein deficiencies Myalgia and myositis, unspecified Peptic ulcer, unspecified site, unspecified as acute or chronic, without mention of hemorrhage or perforation Peripheral vascular disease, unspecified (HCC) PAST SURGICAL HISTORY Procedure Laterality Date ABD AORTA ANEURYSM REPAIR 11/2014 APPENDECTOMY 09/28/1964 ARTHROTOMY W/MENISCUS REPAIR KNEE Right 05/2015 BUNIONECTOMY, LAPIDUS-TYPE 06/2014 BX BREAST NEEDLE CORE W/O IMAGING GUIDANCE SPX 09/28/1998 lt breast- benign COLONOSCOPY FLX DX W/COLLJ SPEC WHEN PFRMD 09/07/2002 Colonoscopy COLONOSCOPY FLX DX W/COLLJ SPEC WHEN PFRMD 10/23/2011 Colonoscopy LIG/TRNSXJ FLP TUBE ABDL/VAG APPR UNI/BI 09/28/1971 Tubal ligation PAST SURGICAL HISTORY OF 09/28/1971 kidney and bladder polyps PAST SURGICAL HISTORY OF 09/28/2001 breast bx and mastectomy PAST SURGICAL HISTORY OF 12/01/2014 throacic abd aorta tear Ak Gen REMV CATARACT EXTRACAP,INSERT LENS Bilateral 2018 REVISE MEDIAN N/CARPAL TUNNEL SURG Left 08/2017 SIGMOIDOSCOPY FLX DX W/COLLJ SPEC BR/WA IF PFRMD 1990. Sigmoidoscopy, flexible SKIN BX, 1 LESION Left 08/2016 removal squamous cell- left check TOTAL ABDOMINAL HYSTERECT W/WO RMVL TUBE OVARY 09/28/1988 Hysterectomy, [facility] Current Outpatient Medications Medication Sig Dispense Refill Biotin 10,000 mcg cap Take 5,000 mcg by mouth once daily. calcium carbonate (CALCIUM 600) 600 mg calcium (1,500 mg) tab Take 600 mg by mouth once daily. gabapentin (NEURONTIN) 100 mg capsule Take 100 mg by mouth three times daily. vitamin D3/vitamin K2, MK4, (K2 PLUS D3 ORAL) Take 100 mcg by mouth once daily. melatonin 10 mg cap Take 5 mg by mouth once daily. polyethylene glycol 3350 (MIRALAX) 17 gram/dose powder Take 17 g by mouth as needed for constipation. Dissolve dose in 4 - 8 ounces of liquid and take as directed. vit C,O-Ob-ugscq-lutein-zeaxan (PRESERVISION AREDS-2) 250-90-40-1 mg Take 1 capsule by mouth twice daily with meals. Omeprazole Magnesium (PRILOSEC OTC) 20 mg tablet Take 20 mg by mouth once daily. rosuvastatin (CRESTOR) 5 mg tablet Take 5 mg by mouth once daily. metoprolol succinate ER (TOPROL XL) 50 mg 24 hr tablet Take 100 mg by mouth once daily. aspirin, enteric coated (ASPIRIN, ENTERIC COATED) 81 mg EC tablet Take 81 mg by mouth once daily. D3/RED WINE/RESVERATROL/MALT (SUPER-D3+ ORAL) Take 4,000 Units by mouth once daily. VITAMIN B COMPLEX (B COMPLEX 1 ORAL) Take 1 tablet by mouth once daily. amitriptyline 10 mg ORAL tablet Take 1 tablet by mouth daily at bedtime. 0 meloxicam (MOBIC) 15 mg tablet Take 15 mg by mouth once daily. (Patient not taking: Reported on 05/19/2023) lansoprazole (PREVACID) 15 mg ORAL capsule Take 1 capsule by mouth once daily. Only taking as needed. (Patient not taking: Reported on 05/19/2023) 0 raloxifene (EVISTA) 60 mg ORAL tablet Take 1 tablet by mouth once daily. (Patient not taking: Reported on 05/19/2023) 0 Lacto gasseri-B bifid-B longum (GemPhones) 1.5 billion cell ORAL Cap Take by mouth. as directed. (Patient not taking: Reported on 05/19/2023) 0 ADVIL 200MG CAPLET 2-3 tabs qid (Patient not taking: Reported on 05/19/2023) 0 MULTIVITAMIN TABLET Take one(1) tablet daily. (Patient not taking: Reported on 05/19/2023) 0 MULTIVITAMIN TABLET Take one(1) tablet daily. (Patient not taking: Reported on 05/19/2023) 0 No current facility-administered medications for this visit. ALLERGIES: Amoxil [Amoxicillin], Augmentin [Amoxicillin-Pot Clavulanate], Cimetidine, Egg Yolk, Joe [Other], Percocet [Oxycodone-Acetaminophen], and Steroids [Corticosteroids (Glucocorticoids)] PERSONAL HISTORY: Social History Tobacco Use Smoking status: Every Day Packs/day: .5 Types: Cigarettes Vaping Use Vaping Use: Never used Substance Use Topics Alcohol use: Yes Comment: rarely Drug use: Never FAMILY HISTORY: FAMILY HISTORY Problem Relation Age of Onset Breast Cancer Mother 67 Alcohol/Drug Father Cancer Sister Diabetes Sister Cancer Brother bone Breast Cancer Maternal Aunt 50's REVIEW OF SYMPTOMS: The review of systems data was entered by the nurse and reviewed by de Nursing Notes: Julissa Faust LPN 05/19/2023 9:35 AM Signed REVIEW OF SYSTEMS: General: The patient denies fatigue, denies weight loss, denies weight gain, denies feeling hot, and denies feelings of cold. Eyes: The patient denies glaucoma, denies eye injury/surgery, wears glasses or contacts. Ear/Nose/Throat: The patient denies allergies, denies hayfever, denies ear infections, and denies bloody noses. Cardiovascular: The patient denies chest pain, denies heart disease, NOTES high blood pressure,denies cardiac stent, denies prior heart attack, denies irregular heart beat, denies high cholesterol, denies poor circulation, denies heart failure, other cardiac issues, denies claudication, denies cold feet, denies peripheral arterial stent. Respiratory: The patient denies tuberculosis, denies pneumonia, NOTES frequent cough, denies pulmonary embolism, NOTES shortness of breath, and denies coughing up blood. Gastrointestinal: The patient denies difficulty swallowing, denies acid reflux, denies ulcers, denies vomiting, denies jaundice/hepatitis, denies gallbladder problems, denies black or tarry stools, denies hemorrhoids, denies bleeding from rectum, denies diverticulitis, NOTES constipation, denies diarrhea, denies loss of stool control, and denies hernias. Kidney/Bladder: The patient NOTES kidney stones, denies urine infections, and denies bloody urine. Skin: The patient NOTES a history of skin cancer, denies bleeding/changing moles, and denies a history of skin rash. Neurologic: The patient denies a history of epilepsy/convulsions, denies headaches, denies head/spinal injuries, and denies stroke/TIA. Psychiatric: The patient denies psychiatric medications, denies depression, and denies voices, denies substance abuse. Endocrine: The patient NOTES thyroid disorders, denies diabetes, and denies hormonal problems. Hematologic: The patient denies a history of bruising, denies bleeding, and denies anemia, denies blood clots. Infections: The patient denies a history of measles and mumps, denies rheumatic fever, and denies sexually transmitted diseases. Musculoskeletal: The patient denies back pain/injury, denies back problems, denies sciatica, NOTES knee/foot trouble, denies arthritis, or denies gout. When was patient's last Mammogram screening? 2022 Last Colonoscopy: 2011 Julissa Faust LPN PHYSICAL EXAMINATION: General: The patient is 77 year old female, well nourished, well hydrated in no acute distress. The patient is oriented to time, place, and person. VITALS: Blood pressure 132/80, pulse 75, temperature 36.2 C (97.2 F), height 165.1 cm (5' 5 ), weight 74.2 kg (163 lb 9.6 oz), SpO2 99 %. Body mass index is 27.22 kg/m . HEENT: Normal cephalic, ataumatic, pupils are equally round, sclera are anicteric, mucous membranes are moist, oropharynx is clear. Neck has no masses, asymmetry or lymphadenopathy. Thyroid exam no hard palpable nodules are identified. No neck tenderness.. Respiratory: Clear to auscultation and percussion. Normal respiratory excursion and pattern. Cardiac: Examination is regular rate and rhythm. Abdominal exam: Soft, nontender, with no palpable masses. No hepatosplenomegaly. No palpable hernias. Rectal exam: exam deferred Extremities: no clubbing, cyanosis or edema. No adenopathy. Other: LABORATORY VALUES: As Noted RADIOLOGIC STUDIES: As Noted Assessment IMPRESSION: Multinodular goiter (primary encounter diagnosis) PLAN: I plan to perform an FNAC of the right Thyroid. Diagnoses: (E04.2) Multinodular goiter (primary encounter diagnosis) A letter was sent to Dr. Nelia Smith, , DO indicating the above finding for this patient. Return to Clinic: The patient is instructed to follow-up with me 1 week post operatively. Zaki Garay III, MD documented in this encounter [facility] 05-19-2023 Nurse Note REVIEW OF SYSTEMS: General: The patient denies fatigue, denies weight loss, denies weight gain, denies feeling hot, and denies feelings of cold. Eyes: The patient denies glaucoma, denies eye injury/surgery, wears glasses or contacts. Ear/Nose/Throat: The patient denies allergies, denies hayfever, denies ear infections, and denies bloody noses. Cardiovascular: The patient denies chest pain, denies heart disease, NOTES high blood pressure,denies cardiac stent, denies prior heart attack, denies irregular heart beat, denies high cholesterol, denies poor circulation, denies heart failure, other cardiac issues, denies claudication, denies cold feet, denies peripheral arterial stent. Respiratory: The patient denies tuberculosis, denies pneumonia, NOTES frequent cough, denies pulmonary embolism, NOTES shortness of breath, and denies coughing up blood. Gastrointestinal: The patient denies difficulty swallowing, denies acid reflux, denies ulcers, denies vomiting, denies jaundice/hepatitis, denies gallbladder problems, denies black or tarry stools, denies hemorrhoids, denies bleeding from rectum, denies diverticulitis, NOTES constipation, denies diarrhea, denies loss of stool control, and denies hernias. Kidney/Bladder: The patient NOTES kidney stones, denies urine infections, and denies bloody urine. Skin: The patient NOTES a history of skin cancer, denies bleeding/changing moles, and denies a history of skin rash. Neurologic: The patient denies a history of epilepsy/convulsions, denies headaches, denies head/spinal injuries, and denies stroke/TIA. Psychiatric: The patient denies psychiatric medications, denies depression, and denies voices, denies substance abuse. Endocrine: The patient NOTES thyroid disorders, denies diabetes, and denies hormonal problems. Hematologic: The patient denies a history of bruising, denies bleeding, and denies anemia, denies blood clots. Infections: The patient denies a history of measles and mumps, denies rheumatic fever, and denies sexually transmitted diseases. Musculoskeletal: The patient denies back pain/injury, denies back problems, denies sciatica, NOTES knee/foot trouble, denies arthritis, or denies gout. When was patient's last Mammogram screening? 2022 Last Colonoscopy: 2011 Julissa Faust LPN documented in this encounter [facility] Diagnosis Multinodular goiter- Primary Nontoxic multinodular goiter [facility] Diagnosis Adverse drug reaction, initial encounter- Primary Thyroid nodule Nontoxic uninodular goiter [facility] Diagnosis Adverse drug reaction, subsequent encounter- Primary [facility] Diagnosis Thyroid nodule- Primary Nontoxic uninodular goiter [facility] Name Dates Details Patient Instructions Indication:Non-smoker Start:20-Mar-2021 Instruction Type:Provider Instructions for Treatment How to Access Health Informa tion Online using Patient Portal and [employer] Apps Indication:Non-smoker Start:20-Mar-2021 Instruction Type:Patient Education How to access health informa tion online Indication:BMI 30.0-30.9,adult Start:25-Jul-2020 Instruction Type:Patient Education How to access health informa tion online - Detail Indication:BMI 30.0-30.9,adult Start:25-Jul-2020 Instruction Type:Patient Education Patient Instructions Indication:BMI 30.0-30.9,adult Start:25-Jul-2020 Instruction Type:Provider Instructions for Treatment How to access health informa tion online Indication:Non-smoker Start:05-Sep-2019 Instruction Type:Patient Education How to access health informa tion online - Detail Indication:Non-smoker Start:05-Sep-2019 Instruction Type:Patient Education Patient Instructions Indication:Non-smoker Start:05-Sep-2019 Instruction Type:Provider Instructions for Treatment How to access health informa tion online Indication:Non-smoker Start:11-Jul-2019 Instruction Type:Patient Education How to access health informa tion online - Detail Indication:Non-smoker Start:11-Jul-2019 Instruction Type:Patient Education Patient Instructions Indication:Non-smoker Start:11-Jul-2019 Instruction Type:Provider Instructions for Treatment cardiovascular counseling Indication:Benign essential HTN Start:03-Sep-2018 Instruction Type:Provider Instructions for Treatment How to access health informa tion online Indication:BMI 31.0-31.9,adult Start:03-Sep-2018 Instruction Type:Patient Education How to access health informa tion online - Detail Indication:BMI 31.0-31.9,adult Start:03-Sep-2018 Instruction Type:Patient Education Patient Instructions Indication:BMI 31.0-31.9,adult Start:03-Sep-2018 Instruction Type:Provider Instructions for Treatment How to access health informa tion online Indication:Nonsmoker Start:26-May-2018 Instruction Type:Patient Education How to access health informa tion online - Detail Indication:Nonsmoker Start:26-May-2018 Instruction Type:Patient Education Patient Instructions Indication:Nonsmoker Start:26-May-2018 Instruction Type:Provider Instructions for Treatment How to access health informa tion online Indication:Nonsmoker Start:15-Oct-2017 Instruction Type:Patient Education How to access health informa tion online - Detail Indication:Nonsmoker Start:15-Oct-2017 Instruction Type:Patient Education Patient Instructions Indication:Nonsmoker Start:15-Oct-2017 Instruction Type:Provider Instructions for Treatment How to access health informa tion online Indication:Benign essential HTN Start:24-Sep-2017 Instruction Type:Patient Education How to access health informa tion online - Detail Indication:Benign essential HTN Start:24-Sep-2017 Instruction Type:Patient Education Patient Instructions Indication:Benign essential HTN Start:24-Sep-2017 Instruction Type:Provider Instructions for Treatment How to access health informa tion online Indication:Nonsmoker Start:10-Aug-2017 Instruction Type:Patient Education How to access health informa tion online - Detail Indication:Nonsmoker Start:10-Aug-2017 Instruction Type:Patient Education Patient Instructions Indication:Nonsmoker Start:10-Aug-2017 Instruction Type:Provider Instructions for Treatment How to access health informa tion online Indication:Body mass index 31.0-31.9, adult (Renamed from BMI 31.0-31.9,adult) Start:18-May-2017 Instruction Type:Patient Education How to access health informa tion online - Detail Indication:Body mass index 31.0-31.9, adult (Renamed from BMI 31.0-31.9,adult) Start:18-May-2017 Instruction Type:Patient Education Patient Instructions Indication:Body mass index 31.0-31.9, adult (Renamed from BMI 31.0-31.9,adult) Start:18-May-2017 Instruction Type:Provider Instructions for Treatment How to access health informa tion online Indication:Nonsmoker Start:24-Oct-2016 Instruction Type:Patient Education How to access health informa tion online - Detail Indication:Nonsmoker Start:24-Oct-2016 Instruction Type:Patient Education Patient Instructions Indication:Nonsmoker Start:24-Oct-2016 Instruction Type:Provider Instructions for Treatment How to access health informa tion online Indication:Nonsmoker Start:20-Oct-2016 Instruction Type:Patient Education How to access health informa tion online - Detail Indication:Nonsmoker Start:20-Oct-2016 Instruction Type:Patient Education Patient Instructions Indication:Nonsmoker Start:20-Oct-2016 Instruction Type:Provider Instructions for Treatment How to access health informa tion online Indication:Flu-like symptoms Start:14-Oct-2016 Instruction Type:Patient Education How to access health informa tion online - Detail Indication:Flu-like symptoms Start:14-Oct-2016 Instruction Type:Patient Education Patient Instructions Indication:Flu-like symptoms Start:14-Oct-2016 Instruction Type:Provider Instructions for Treatment How to access health informa tion online Indication:Nonsmoker Start:04-Sep-2016 Instruction Type:Patient Education How to access health informa tion online - Detail Indication:Nonsmoker Start:04-Sep-2016 Instruction Type:Patient Education Patient Instructions Indication:Nonsmoker Start:04-Sep-2016 Instruction Type:Provider Instructions for Treatment obesity counseling Indication:Benign essential HTN Start:29-Jul-2016 Instruction Type:Provider Instructions for Treatment How to access health informa tion online Indication:Benign essential HTN Start:29-Jul-2016 Instruction Type:Patient Education How to access health informa tion online - Detail Indication:Benign essential HTN Start:29-Jul-2016 Instruction Type:Patient Education Patient Instructions Indication:Benign essential HTN Start:29-Jul-2016 Instruction Type:Provider Instructions for Treatment How to access health informa tion online Indication:Phlebitis of arm Start:18-Dec-2015 Instruction Type:Patient Education How to access health informa tion online - Detail Indication:Phlebitis of arm Start:18-Dec-2015 Instruction Type:Patient Education Patient Instructions Indication:Phlebitis of arm Start:18-Dec-2015 Instruction Type:Provider Instructions for Treatment How to access health informa tion online Indication:Left arm swelling Start:17-Dec-2015 Instruction Type:Patient Education How to access health informa tion online - Detail Indication:Left arm swelling Start:17-Dec-2015 Instruction Type:Patient Education Patient Instructions Indication:Left arm swelling Start:17-Dec-2015 Instruction Type:Provider Instructions for Treatment How to access health informa tion online Indication:Lower GI bleed Start:14-Dec-2015 Instruction Type:Patient Education How to access health informa tion online - Detail Indication:Lower GI bleed Start:14-Dec-2015 Instruction Type:Patient Education instruction Indication:Lower GI bleed Start:14-Dec-2015 Instruction Type:Provider Instructions for Treatment How to access health informa tion online Indication:Vitamin D deficiency Start:26-Nov-2015 Instruction Type:Patient Education How to access health informa tion online - Detail Indication:Vitamin D deficiency Start:26-Nov-2015 Instruction Type:Patient Education Patient Instructions Indication:Vitamin D deficiency Start:26-Nov-2015 Instruction Type:Provider Instructions for Treatment How to access health informa tion online Indication:Hernia, umbilical Start:30-Aug-2015 Instruction Type:Patient Education How to access health informa tion online - Detail Indication:Hernia, umbilical Start:30-Aug-2015 Instruction Type:Patient Education Patient Instructions Indication:Hernia, umbilical Start:30-Aug-2015 Instruction Type:Provider Instructions for Treatment obesity counseling Indication:Benign essential HTN Start:29-Jun-2015 Instruction Type:Provider Instructions for Treatment How to access health informa tion online Indication:Annual Medicare Phyiscal WITHOUT abnormal findings (Renamed from Encounter for general adult medical examination without abnormal findings) Start:29-Jun-2015 Instruction Type:Patient Education How to access health informa tion online - Detail Indication:Annual Medicare Phyiscal WITHOUT abnormal findings (Renamed from Encounter for general adult medical examination without abnormal findings) Start:29-Jun-2015 Instruction Type:Patient Education Patient Instructions Indication:Annual Medicare Phyiscal WITHOUT abnormal findings (Renamed from Encounter for general adult medical examination without abnormal findings) Start:29-Jun-2015 Instruction Type:Provider Instructions for Treatment How to access health informa tion online - Detail Indication:Sinusitis Start:19-Apr-2015 Instruction Type:Patient Education Patient Instructions Indication:Sinusitis Start:19-Apr-2015 Instruction Type:Provider Instructions for Treatment How to access health informa tion online Indication:Benign essential HTN Start:04-Apr-2015 Instruction Type:Patient Education How to access health informa tion online - Detail Indication:Benign essential HTN Start:04-Apr-2015 Instruction Type:Patient Education Patient Instructions Indication:Benign essential HTN Start:04-Apr-2015 Instruction Type:Provider Instructions for Treatment How to access health informa tion online Indication:Leg swelling Start:28-Mar-2015 Instruction Type:Patient Education How to access health informa tion online - Detail Indication:Leg swelling Start:28-Mar-2015 Instruction Type:Patient Education Patient Instructions Indication:Leg swelling Start:28-Mar-2015 Instruction Type:Provider Instructions for Treatment How to access health informa tion online Indication:Leg swelling Start:12-Mar-2015 Instruction Type:Patient Education How to access health informa tion online - Detail Indication:Leg swelling Start:12-Mar-2015 Instruction Type:Patient Education Patient Instructions Indication:Leg swelling Start:12-Mar-2015 Instruction Type:Provider Instructions for Treatment Patient Instructions Indication:Knee pain, right Start:05-Feb-2015 Instruction Type:Provider Instructions for Treatment How to access health informa tion online Indication:Abnormal urine odor Start:18-Oct-2014 Instruction Type:Patient Education How to access health informa tion online - Detail Indication:Abnormal urine odor Start:18-Oct-2014 Instruction Type:Patient Education Patient Instructions-- Indication:Abnormal urine odor Start:18-Oct-2014 Instruction Type:Provider Instructions for Treatment How to access health informa tion online Indication:COPD (chronic obstructive pulmonary disease) Start:09-Jun-2014 Instruction Type:Patient Education How to access health informa tion online - Detail Indication:COPD (chronic obstructive pulmonary disease) Start:09-Jun-2014 Instruction Type:Patient Education Patient Instructions Indication:COPD (chronic obstructive pulmonary disease) Start:09-Jun-2014 Instruction Type:Provider Instructions for Treatment Patient Instructions Indication:Fibromyalgia Start:03-Jun-2013 Instruction Type:Provider Instructions for Treatment Patient Instructions Indication:Cough Start:23-Mar-2013 Instruction Type:Provider Instructions for Treatment Patient Instructions Indication:Acute sinusitis, unspecified Start:11-Nov-2012 Instruction Type:Provider Instructions for Treatment Patient Instructions Indication:Well woman exam Start:12-Jul-2012 Instruction Type:Provider Instructions for Treatment Patient Instructions Indication:Encounter for other screening for malignant neoplasm of breast Start:01-Jul-2012 Instruction Type:Provider Instructions for Treatment [facility]; [facility] Work Phone: Instructions* Name Dates Details Patient Instructions Indication:Non-smoker Start:20-Mar-2021 Instruction Type:Provider Instructions for Treatment How to Access Health Informa tion Online using Patient Portal and [employer] Apps Indication:Non-smoker Start:20-Mar-2021 Instruction Type:Patient Education How to access health informa tion online Indication:BMI 30.0-30.9,adult Start:25-Jul-2020 Instruction Type:Patient Education How to access health informa tion online - Detail Indication:BMI 30.0-30.9,adult Start:25-Jul-2020 Instruction Type:Patient Education Patient Instructions Indication:BMI 30.0-30.9,adult Start:25-Jul-2020 Instruction Type:Provider Instructions for Treatment How to access health informa tion online Indication:Non-smoker Start:05-Sep-2019 Instruction Type:Patient Education How to access health informa tion online - Detail Indication:Non-smoker Start:05-Sep-2019 Instruction Type:Patient Education Patient Instructions Indication:Non-smoker Start:05-Sep-2019 Instruction Type:Provider Instructions for Treatment How to access health informa tion online Indication:Non-smoker Start:11-Jul-2019 Instruction Type:Patient Education How to access health informa tion online - Detail Indication:Non-smoker Start:11-Jul-2019 Instruction Type:Patient Education Patient Instructions Indication:Non-smoker Start:11-Jul-2019 Instruction Type:Provider Instructions for Treatment cardiovascular counseling Indication:Benign essential HTN Start:03-Sep-2018 Instruction Type:Provider Instructions for Treatment How to access health informa tion online Indication:BMI 31.0-31.9,adult Start:03-Sep-2018 Instruction Type:Patient Education How to access health informa tion online - Detail Indication:BMI 31.0-31.9,adult Start:03-Sep-2018 Instruction Type:Patient Education Patient Instructions Indication:BMI 31.0-31.9,adult Start:03-Sep-2018 Instruction Type:Provider Instructions for Treatment How to access health informa tion online Indication:Nonsmoker Start:26-May-2018 Instruction Type:Patient Education How to access health informa tion online - Detail Indication:Nonsmoker Start:26-May-2018 Instruction Type:Patient Education Patient Instructions Indication:Nonsmoker Start:26-May-2018 Instruction Type:Provider Instructions for Treatment How to access health informa tion online Indication:Nonsmoker Start:15-Oct-2017 Instruction Type:Patient Education How to access health informa tion online - Detail Indication:Nonsmoker Start:15-Oct-2017 Instruction Type:Patient Education Patient Instructions Indication:Nonsmoker Start:15-Oct-2017 Instruction Type:Provider Instructions for Treatment How to access health informa tion online Indication:Benign essential HTN Start:24-Sep-2017 Instruction Type:Patient Education How to access health informa tion online - Detail Indication:Benign essential HTN Start:24-Sep-2017 Instruction Type:Patient Education Patient Instructions Indication:Benign essential HTN Start:24-Sep-2017 Instruction Type:Provider Instructions for Treatment How to access health informa tion online Indication:Nonsmoker Start:10-Aug-2017 Instruction Type:Patient Education How to access health informa tion online - Detail Indication:Nonsmoker Start:10-Aug-2017 Instruction Type:Patient Education Patient Instructions Indication:Nonsmoker Start:10-Aug-2017 Instruction Type:Provider Instructions for Treatment How to access health informa tion online Indication:Body mass index 31.0-31.9, adult (Renamed from BMI 31.0-31.9,adult) Start:18-May-2017 Instruction Type:Patient Education How to access health informa tion online - Detail Indication:Body mass index 31.0-31.9, adult (Renamed from BMI 31.0-31.9,adult) Start:18-May-2017 Instruction Type:Patient Education Patient Instructions Indication:Body mass index 31.0-31.9, adult (Renamed from BMI 31.0-31.9,adult) Start:18-May-2017 Instruction Type:Provider Instructions for Treatment How to access health informa tion online Indication:Nonsmoker Start:24-Oct-2016 Instruction Type:Patient Education How to access health informa tion online - Detail Indication:Nonsmoker Start:24-Oct-2016 Instruction Type:Patient Education Patient Instructions Indication:Nonsmoker Start:24-Oct-2016 Instruction Type:Provider Instructions for Treatment How to access health informa tion online Indication:Nonsmoker Start:20-Oct-2016 Instruction Type:Patient Education How to access health informa tion online - Detail Indication:Nonsmoker Start:20-Oct-2016 Instruction Type:Patient Education Patient Instructions Indication:Nonsmoker Start:20-Oct-2016 Instruction Type:Provider Instructions for Treatment How to access health informa tion online Indication:Flu-like symptoms Start:14-Oct-2016 Instruction Type:Patient Education How to access health informa tion online - Detail Indication:Flu-like symptoms Start:14-Oct-2016 Instruction Type:Patient Education Patient Instructions Indication:Flu-like symptoms Start:14-Oct-2016 Instruction Type:Provider Instructions for Treatment How to access health informa tion online Indication:Nonsmoker Start:04-Sep-2016 Instruction Type:Patient Education How to access health informa tion online - Detail Indication:Nonsmoker Start:04-Sep-2016 Instruction Type:Patient Education Patient Instructions Indication:Nonsmoker Start:04-Sep-2016 Instruction Type:Provider Instructions for Treatment obesity counseling Indication:Benign essential HTN Start:29-Jul-2016 Instruction Type:Provider Instructions for Treatment How to access health informa tion online Indication:Benign essential HTN Start:29-Jul-2016 Instruction Type:Patient Education How to access health informa tion online - Detail Indication:Benign essential HTN Start:29-Jul-2016 Instruction Type:Patient Education Patient Instructions Indication:Benign essential HTN Start:29-Jul-2016 Instruction Type:Provider Instructions for Treatment How to access health informa tion online Indication:Phlebitis of arm Start:18-Dec-2015 Instruction Type:Patient Education How to access health informa tion online - Detail Indication:Phlebitis of arm Start:18-Dec-2015 Instruction Type:Patient Education Patient Instructions Indication:Phlebitis of arm Start:18-Dec-2015 Instruction Type:Provider Instructions for Treatment How to access health informa tion online Indication:Left arm swelling Start:17-Dec-2015 Instruction Type:Patient Education How to access health informa tion online - Detail Indication:Left arm swelling Start:17-Dec-2015 Instruction Type:Patient Education Patient Instructions Indication:Left arm swelling Start:17-Dec-2015 Instruction Type:Provider Instructions for Treatment How to access health informa tion online Indication:Lower GI bleed Start:14-Dec-2015 Instruction Type:Patient Education How to access health informa tion online - Detail Indication:Lower GI bleed Start:14-Dec-2015 Instruction Type:Patient Education instruction Indication:Lower GI bleed Start:14-Dec-2015 Instruction Type:Provider Instructions for Treatment How to access health informa tion online Indication:Vitamin D deficiency Start:26-Nov-2015 Instruction Type:Patient Education How to access health informa tion online - Detail Indication:Vitamin D deficiency Start:26-Nov-2015 Instruction Type:Patient Education Patient Instructions Indication:Vitamin D deficiency Start:26-Nov-2015 Instruction Type:Provider Instructions for Treatment How to access health informa tion online Indication:Hernia, umbilical Start:30-Aug-2015 Instruction Type:Patient Education How to access health informa tion online - Detail Indication:Hernia, umbilical Start:30-Aug-2015 Instruction Type:Patient Education Patient Instructions Indication:Hernia, umbilical Start:30-Aug-2015 Instruction Type:Provider Instructions for Treatment obesity counseling Indication:Benign essential HTN Start:29-Jun-2015 Instruction Type:Provider Instructions for Treatment How to access health informa tion online Indication:Annual Medicare Phyiscal WITHOUT abnormal findings (Renamed from Encounter for general adult medical examination without abnormal findings) Start:29-Jun-2015 Instruction Type:Patient Education How to access health informa tion online - Detail Indication:Annual Medicare Phyiscal WITHOUT abnormal findings (Renamed from Encounter for general adult medical examination without abnormal findings) Start:29-Jun-2015 Instruction Type:Patient Education Patient Instructions Indication:Annual Medicare Phyiscal WITHOUT abnormal findings (Renamed from Encounter for general adult medical examination without abnormal findings) Start:29-Jun-2015 Instruction Type:Provider Instructions for Treatment How to access health informa tion online - Detail Indication:Sinusitis Start:19-Apr-2015 Instruction Type:Patient Education Patient Instructions Indication:Sinusitis Start:19-Apr-2015 Instruction Type:Provider Instructions for Treatment How to access health informa tion online Indication:Benign essential HTN Start:04-Apr-2015 Instruction Type:Patient Education How to access health informa tion online - Detail Indication:Benign essential HTN Start:04-Apr-2015 Instruction Type:Patient Education Patient Instructions Indication:Benign essential HTN Start:04-Apr-2015 Instruction Type:Provider Instructions for Treatment How to access health informa tion online Indication:Leg swelling Start:28-Mar-2015 Instruction Type:Patient Education How to access health informa tion online - Detail Indication:Leg swelling Start:28-Mar-2015 Instruction Type:Patient Education Patient Instructions Indication:Leg swelling Start:28-Mar-2015 Instruction Type:Provider Instructions for Treatment How to access health informa tion online Indication:Leg swelling Start:12-Mar-2015 Instruction Type:Patient Education How to access health informa tion online - Detail Indication:Leg swelling Start:12-Mar-2015 Instruction Type:Patient Education Patient Instructions Indication:Leg swelling Start:12-Mar-2015 Instruction Type:Provider Instructions for Treatment Patient Instructions Indication:Knee pain, right Start:05-Feb-2015 Instruction Type:Provider Instructions for Treatment How to access health informa tion online Indication:Abnormal urine odor Start:18-Oct-2014 Instruction Type:Patient Education How to access health informa tion online - Detail Indication:Abnormal urine odor Start:18-Oct-2014 Instruction Type:Patient Education Patient Instructions-- Indication:Abnormal urine odor Start:18-Oct-2014 Instruction Type:Provider Instructions for Treatment How to access health informa tion online Indication:COPD (chronic obstructive pulmonary disease) Start:09-Jun-2014 Instruction Type:Patient Education How to access health informa tion online - Detail Indication:COPD (chronic obstructive pulmonary disease) Start:09-Jun-2014 Instruction Type:Patient Education Patient Instructions Indication:COPD (chronic obstructive pulmonary disease) Start:09-Jun-2014 Instruction Type:Provider Instructions for Treatment Patient Instructions Indication:Fibromyalgia Start:03-Jun-2013 Instruction Type:Provider Instructions for Treatment Patient Instructions Indication:Cough Start:23-Mar-2013 Instruction Type:Provider Instructions for Treatment Patient Instructions Indication:Acute sinusitis, unspecified Start:11-Nov-2012 Instruction Type:Provider Instructions for Treatment Patient Instructions Indication:Well woman exam Start:12-Jul-2012 Instruction Type:Provider Instructions for Treatment Patient Instructions Indication:Encounter for other screening for malignant neoplasm of breast Start:01-Jul-2012 Instruction Type:Provider Instructions for Treatment [facility]; [facility] Work Phone: Instructions* Name Dates Details Patient Instructions Indication:Non-smoker Start:20-Mar-2021 Instruction Type:Provider Instructions for Treatment How to Access Health Informa tion Online using Patient Portal and [employer] Party Apps Indication:Non-smoker Start:20-Mar-2021 Instruction Type:Patient Education How to access health informa tion online Indication:BMI 30.0-30.9,adult Start:25-Jul-2020 Instruction Type:Patient Education How to access health informa tion online - Detail Indication:BMI 30.0-30.9,adult Start:25-Jul-2020 Instruction Type:Patient Education Patient Instructions Indication:BMI 30.0-30.9,adult Start:25-Jul-2020 Instruction Type:Provider Instructions for Treatment How to access health informa tion online Indication:Non-smoker Start:05-Sep-2019 Instruction Type:Patient Education How to access health informa tion online - Detail Indication:Non-smoker Start:05-Sep-2019 Instruction Type:Patient Education Patient Instructions Indication:Non-smoker Start:05-Sep-2019 Instruction Type:Provider Instructions for Treatment How to access health informa tion online Indication:Non-smoker Start:11-Jul-2019 Instruction Type:Patient Education How to access health informa tion online - Detail Indication:Non-smoker Start:11-Jul-2019 Instruction Type:Patient Education Patient Instructions Indication:Non-smoker Start:11-Jul-2019 Instruction Type:Provider Instructions for Treatment cardiovascular counseling Indication:Benign essential HTN Start:03-Sep-2018 Instruction Type:Provider Instructions for Treatment How to access health informa tion online Indication:BMI 31.0-31.9,adult Start:03-Sep-2018 Instruction Type:Patient Education How to access health informa tion online - Detail Indication:BMI 31.0-31.9,adult Start:03-Sep-2018 Instruction Type:Patient Education Patient Instructions Indication:BMI 31.0-31.9,adult Start:03-Sep-2018 Instruction Type:Provider Instructions for Treatment How to access health informa tion online Indication:Nonsmoker Start:26-May-2018 Instruction Type:Patient Education How to access health informa tion online - Detail Indication:Nonsmoker Start:26-May-2018 Instruction Type:Patient Education Patient Instructions Indication:Nonsmoker Start:26-May-2018 Instruction Type:Provider Instructions for Treatment How to access health informa tion online Indication:Nonsmoker Start:15-Oct-2017 Instruction Type:Patient Education How to access health informa tion online - Detail Indication:Nonsmoker Start:15-Oct-2017 Instruction Type:Patient Education Patient Instructions Indication:Nonsmoker Start:15-Oct-2017 Instruction Type:Provider Instructions for Treatment How to access health informa tion online Indication:Benign essential HTN Start:24-Sep-2017 Instruction Type:Patient Education How to access health informa tion online - Detail Indication:Benign essential HTN Start:24-Sep-2017 Instruction Type:Patient Education Patient Instructions Indication:Benign essential HTN Start:24-Sep-2017 Instruction Type:Provider Instructions for Treatment How to access health informa tion online Indication:Nonsmoker Start:10-Aug-2017 Instruction Type:Patient Education How to access health informa tion online - Detail Indication:Nonsmoker Start:10-Aug-2017 Instruction Type:Patient Education Patient Instructions Indication:Nonsmoker Start:10-Aug-2017 Instruction Type:Provider Instructions for Treatment How to access health informa tion online Indication:Body mass index 31.0-31.9, adult (Renamed from BMI 31.0-31.9,adult) Start:18-May-2017 Instruction Type:Patient Education How to access health informa tion online - Detail Indication:Body mass index 31.0-31.9, adult (Renamed from BMI 31.0-31.9,adult) Start:18-May-2017 Instruction Type:Patient Education Patient Instructions Indication:Body mass index 31.0-31.9, adult (Renamed from BMI 31.0-31.9,adult) Start:18-May-2017 Instruction Type:Provider Instructions for Treatment How to access health informa tion online Indication:Nonsmoker Start:24-Oct-2016 Instruction Type:Patient Education How to access health informa tion online - Detail Indication:Nonsmoker Start:24-Oct-2016 Instruction Type:Patient Education Patient Instructions Indication:Nonsmoker Start:24-Oct-2016 Instruction Type:Provider Instructions for Treatment How to access health informa tion online Indication:Nonsmoker Start:20-Oct-2016 Instruction Type:Patient Education How to access health informa tion online - Detail Indication:Nonsmoker Start:20-Oct-2016 Instruction Type:Patient Education Patient Instructions Indication:Nonsmoker Start:20-Oct-2016 Instruction Type:Provider Instructions for Treatment How to access health informa tion online Indication:Flu-like symptoms Start:14-Oct-2016 Instruction Type:Patient Education How to access health informa tion online - Detail Indication:Flu-like symptoms Start:14-Oct-2016 Instruction Type:Patient Education Patient Instructions Indication:Flu-like symptoms Start:14-Oct-2016 Instruction Type:Provider Instructions for Treatment How to access health informa tion online Indication:Nonsmoker Start:04-Sep-2016 Instruction Type:Patient Education How to access health informa tion online - Detail Indication:Nonsmoker Start:04-Sep-2016 Instruction Type:Patient Education Patient Instructions Indication:Nonsmoker Start:04-Sep-2016 Instruction Type:Provider Instructions for Treatment obesity counseling Indication:Benign essential HTN Start:29-Jul-2016 Instruction Type:Provider Instructions for Treatment How to access health informa tion online Indication:Benign essential HTN Start:29-Jul-2016 Instruction Type:Patient Education How to access health informa tion online - Detail Indication:Benign essential HTN Start:29-Jul-2016 Instruction Type:Patient Education Patient Instructions Indication:Benign essential HTN Start:29-Jul-2016 Instruction Type:Provider Instructions for Treatment How to access health informa tion online Indication:Phlebitis of arm Start:18-Dec-2015 Instruction Type:Patient Education How to access health informa tion online - Detail Indication:Phlebitis of arm Start:18-Dec-2015 Instruction Type:Patient Education Patient Instructions Indication:Phlebitis of arm Start:18-Dec-2015 Instruction Type:Provider Instructions for Treatment How to access health informa tion online Indication:Left arm swelling Start:17-Dec-2015 Instruction Type:Patient Education How to access health informa tion online - Detail Indication:Left arm swelling Start:17-Dec-2015 Instruction Type:Patient Education Patient Instructions Indication:Left arm swelling Start:17-Dec-2015 Instruction Type:Provider Instructions for Treatment How to access health informa tion online Indication:Lower GI bleed Start:14-Dec-2015 Instruction Type:Patient Education How to access health informa tion online - Detail Indication:Lower GI bleed Start:14-Dec-2015 Instruction Type:Patient Education instruction Indication:Lower GI bleed Start:14-Dec-2015 Instruction Type:Provider Instructions for Treatment How to access health informa tion online Indication:Vitamin D deficiency Start:26-Nov-2015 Instruction Type:Patient Education How to access health informa tion online - Detail Indication:Vitamin D deficiency Start:26-Nov-2015 Instruction Type:Patient Education Patient Instructions Indication:Vitamin D deficiency Start:26-Nov-2015 Instruction Type:Provider Instructions for Treatment How to access health informa tion online Indication:Hernia, umbilical Start:30-Aug-2015 Instruction Type:Patient Education How to access health informa tion online - Detail Indication:Hernia, umbilical Start:30-Aug-2015 Instruction Type:Patient Education Patient Instructions Indication:Hernia, umbilical Start:30-Aug-2015 Instruction Type:Provider Instructions for Treatment obesity counseling Indication:Benign essential HTN Start:29-Jun-2015 Instruction Type:Provider Instructions for Treatment How to access health informa tion online Indication:Annual Medicare Phyiscal WITHOUT abnormal findings (Renamed from Encounter for general adult medical examination without abnormal findings) Start:29-Jun-2015 Instruction Type:Patient Education How to access health informa tion online - Detail Indication:Annual Medicare Phyiscal WITHOUT abnormal findings (Renamed from Encounter for general adult medical examination without abnormal findings) Start:29-Jun-2015 Instruction Type:Patient Education Patient Instructions Indication:Annual Medicare Phyiscal WITHOUT abnormal findings (Renamed from Encounter for general adult medical examination without abnormal findings) Start:29-Jun-2015 Instruction Type:Provider Instructions for Treatment How to access health informa tion online - Detail Indication:Sinusitis Start:19-Apr-2015 Instruction Type:Patient Education Patient Instructions Indication:Sinusitis Start:19-Apr-2015 Instruction Type:Provider Instructions for Treatment How to access health informa tion online Indication:Benign essential HTN Start:04-Apr-2015 Instruction Type:Patient Education How to access health informa tion online - Detail Indication:Benign essential HTN Start:04-Apr-2015 Instruction Type:Patient Education Patient Instructions Indication:Benign essential HTN Start:04-Apr-2015 Instruction Type:Provider Instructions for Treatment How to access health informa tion online Indication:Leg swelling Start:28-Mar-2015 Instruction Type:Patient Education How to access health informa tion online - Detail Indication:Leg swelling Start:28-Mar-2015 Instruction Type:Patient Education Patient Instructions Indication:Leg swelling Start:28-Mar-2015 Instruction Type:Provider Instructions for Treatment How to access health informa tion online Indication:Leg swelling Start:12-Mar-2015 Instruction Type:Patient Education How to access health informa tion online - Detail Indication:Leg swelling Start:12-Mar-2015 Instruction Type:Patient Education Patient Instructions Indication:Leg swelling Start:12-Mar-2015 Instruction Type:Provider Instructions for Treatment Patient Instructions Indication:Knee pain, right Start:05-Feb-2015 Instruction Type:Provider Instructions for Treatment How to access health informa tion online Indication:Abnormal urine odor Start:18-Oct-2014 Instruction Type:Patient Education How to access health informa tion online - Detail Indication:Abnormal urine odor Start:18-Oct-2014 Instruction Type:Patient Education Patient Instructions-- Indication:Abnormal urine odor Start:18-Oct-2014 Instruction Type:Provider Instructions for Treatment How to access health informa tion online Indication:COPD (chronic obstructive pulmonary disease) Start:09-Jun-2014 Instruction Type:Patient Education How to access health informa tion online - Detail Indication:COPD (chronic obstructive pulmonary disease) Start:09-Jun-2014 Instruction Type:Patient Education Patient Instructions Indication:COPD (chronic obstructive pulmonary disease) Start:09-Jun-2014 Instruction Type:Provider Instructions for Treatment Patient Instructions Indication:Fibromyalgia Start:03-Jun-2013 Instruction Type:Provider Instructions for Treatment Patient Instructions Indication:Cough Start:23-Mar-2013 Instruction Type:Provider Instructions for Treatment Patient Instructions Indication:Acute sinusitis, unspecified Start:11-Nov-2012 Instruction Type:Provider Instructions for Treatment Patient Instructions Indication:Well woman exam Start:12-Jul-2012 Instruction Type:Provider Instructions for Treatment Patient Instructions Indication:Encounter for other screening for malignant neoplasm of breast Start:01-Jul-2012 Instruction Type:Provider Instructions for Treatment [facility]; [facility] Work Phone: Instructions* Name Dates Details Patient Instructions Indication:Non-smoker Start:24-Jan-2022 Instruction Type:Provider Instructions for Treatment How to Access Health Informa tion Online using Patient Portal and [employer] Party Apps Indication:Non-smoker Start:24-Jan-2022 Instruction Type:Patient Education Patient Instructions Indication:Non-smoker Start:20-Mar-2021 Instruction Type:Provider Instructions for Treatment How to Access Health Informa tion Online using Patient Portal and [employer] Apps Indication:Non-smoker Start:20-Mar-2021 Instruction Type:Patient Education How to access health informa tion online Indication:BMI 30.0-30.9,adult Start:25-Jul-2020 Instruction Type:Patient Education How to access health informa tion online - Detail Indication:BMI 30.0-30.9,adult Start:25-Jul-2020 Instruction Type:Patient Education Patient Instructions Indication:BMI 30.0-30.9,adult Start:25-Jul-2020 Instruction Type:Provider Instructions for Treatment How to access health informa tion online Indication:Non-smoker Start:05-Sep-2019 Instruction Type:Patient Education How to access health informa tion online - Detail Indication:Non-smoker Start:05-Sep-2019 Instruction Type:Patient Education Patient Instructions Indication:Non-smoker Start:05-Sep-2019 Instruction Type:Provider Instructions for Treatment How to access health informa tion online Indication:Non-smoker Start:11-Jul-2019 Instruction Type:Patient Education How to access health informa tion online - Detail Indication:Non-smoker Start:11-Jul-2019 Instruction Type:Patient Education Patient Instructions Indication:Non-smoker Start:11-Jul-2019 Instruction Type:Provider Instructions for Treatment cardiovascular counseling Indication:Benign essential HTN Start:03-Sep-2018 Instruction Type:Provider Instructions for Treatment How to access health informa tion online Indication:BMI 31.0-31.9,adult Start:03-Sep-2018 Instruction Type:Patient Education How to access health informa tion online - Detail Indication:BMI 31.0-31.9,adult Start:03-Sep-2018 Instruction Type:Patient Education Patient Instructions Indication:BMI 31.0-31.9,adult Start:03-Sep-2018 Instruction Type:Provider Instructions for Treatment How to access health informa tion online Indication:Nonsmoker Start:26-May-2018 Instruction Type:Patient Education How to access health informa tion online - Detail Indication:Nonsmoker Start:26-May-2018 Instruction Type:Patient Education Patient Instructions Indication:Nonsmoker Start:26-May-2018 Instruction Type:Provider Instructions for Treatment How to access health informa tion online Indication:Nonsmoker Start:15-Oct-2017 Instruction Type:Patient Education How to access health informa tion online - Detail Indication:Nonsmoker Start:15-Oct-2017 Instruction Type:Patient Education Patient Instructions Indication:Nonsmoker Start:15-Oct-2017 Instruction Type:Provider Instructions for Treatment How to access health informa tion online Indication:Benign essential HTN Start:24-Sep-2017 Instruction Type:Patient Education How to access health informa tion online - Detail Indication:Benign essential HTN Start:24-Sep-2017 Instruction Type:Patient Education Patient Instructions Indication:Benign essential HTN Start:24-Sep-2017 Instruction Type:Provider Instructions for Treatment How to access health informa tion online Indication:Nonsmoker Start:10-Aug-2017 Instruction Type:Patient Education How to access health informa tion online - Detail Indication:Nonsmoker Start:10-Aug-2017 Instruction Type:Patient Education Patient Instructions Indication:Nonsmoker Start:10-Aug-2017 Instruction Type:Provider Instructions for Treatment How to access health informa tion online Indication:Body mass index 31.0-31.9, adult (Renamed from BMI 31.0-31.9,adult) Start:18-May-2017 Instruction Type:Patient Education How to access health informa tion online - Detail Indication:Body mass index 31.0-31.9, adult (Renamed from BMI 31.0-31.9,adult) Start:18-May-2017 Instruction Type:Patient Education Patient Instructions Indication:Body mass index 31.0-31.9, adult (Renamed from BMI 31.0-31.9,adult) Start:18-May-2017 Instruction Type:Provider Instructions for Treatment How to access health informa tion online Indication:Nonsmoker Start:24-Oct-2016 Instruction Type:Patient Education How to access health informa tion online - Detail Indication:Nonsmoker Start:24-Oct-2016 Instruction Type:Patient Education Patient Instructions Indication:Nonsmoker Start:24-Oct-2016 Instruction Type:Provider Instructions for Treatment How to access health informa tion online Indication:Nonsmoker Start:20-Oct-2016 Instruction Type:Patient Education How to access health informa tion online - Detail Indication:Nonsmoker Start:20-Oct-2016 Instruction Type:Patient Education Patient Instructions Indication:Nonsmoker Start:20-Oct-2016 Instruction Type:Provider Instructions for Treatment How to access health informa tion online Indication:Flu-like symptoms Start:14-Oct-2016 Instruction Type:Patient Education How to access health informa tion online - Detail Indication:Flu-like symptoms Start:14-Oct-2016 Instruction Type:Patient Education Patient Instructions Indication:Flu-like symptoms Start:14-Oct-2016 Instruction Type:Provider Instructions for Treatment How to access health informa tion online Indication:Nonsmoker Start:04-Sep-2016 Instruction Type:Patient Education How to access health informa tion online - Detail Indication:Nonsmoker Start:04-Sep-2016 Instruction Type:Patient Education Patient Instructions Indication:Nonsmoker Start:04-Sep-2016 Instruction Type:Provider Instructions for Treatment obesity counseling Indication:Benign essential HTN Start:29-Jul-2016 Instruction Type:Provider Instructions for Treatment How to access health informa tion online Indication:Benign essential HTN Start:29-Jul-2016 Instruction Type:Patient Education How to access health informa tion online - Detail Indication:Benign essential HTN Start:29-Jul-2016 Instruction Type:Patient Education Patient Instructions Indication:Benign essential HTN Start:29-Jul-2016 Instruction Type:Provider Instructions for Treatment How to access health informa tion online Indication:Phlebitis of arm Start:18-Dec-2015 Instruction Type:Patient Education How to access health informa tion online - Detail Indication:Phlebitis of arm Start:18-Dec-2015 Instruction Type:Patient Education Patient Instructions Indication:Phlebitis of arm Start:18-Dec-2015 Instruction Type:Provider Instructions for Treatment How to access health informa tion online Indication:Left arm swelling Start:17-Dec-2015 Instruction Type:Patient Education How to access health informa tion online - Detail Indication:Left arm swelling Start:17-Dec-2015 Instruction Type:Patient Education Patient Instructions Indication:Left arm swelling Start:17-Dec-2015 Instruction Type:Provider Instructions for Treatment How to access health informa tion online Indication:Lower GI bleed Start:14-Dec-2015 Instruction Type:Patient Education How to access health informa tion online - Detail Indication:Lower GI bleed Start:14-Dec-2015 Instruction Type:Patient Education instruction Indication:Lower GI bleed Start:14-Dec-2015 Instruction Type:Provider Instructions for Treatment How to access health informa tion online Indication:Vitamin D deficiency Start:26-Nov-2015 Instruction Type:Patient Education How to access health informa tion online - Detail Indication:Vitamin D deficiency Start:26-Nov-2015 Instruction Type:Patient Education Patient Instructions Indication:Vitamin D deficiency Start:26-Nov-2015 Instruction Type:Provider Instructions for Treatment How to access health informa tion online Indication:Hernia, umbilical Start:30-Aug-2015 Instruction Type:Patient Education How to access health informa tion online - Detail Indication:Hernia, umbilical Start:30-Aug-2015 Instruction Type:Patient Education Patient Instructions Indication:Hernia, umbilical Start:30-Aug-2015 Instruction Type:Provider Instructions for Treatment obesity counseling Indication:Benign essential HTN Start:29-Jun-2015 Instruction Type:Provider Instructions for Treatment How to access health informa tion online Indication:Annual Medicare Phyiscal WITHOUT abnormal findings (Renamed from Encounter for general adult medical examination without abnormal findings) Start:29-Jun-2015 Instruction Type:Patient Education How to access health informa tion online - Detail Indication:Annual Medicare Phyiscal WITHOUT abnormal findings (Renamed from Encounter for general adult medical examination without abnormal findings) Start:29-Jun-2015 Instruction Type:Patient Education Patient Instructions Indication:Annual Medicare Phyiscal WITHOUT abnormal findings (Renamed from Encounter for general adult medical examination without abnormal findings) Start:29-Jun-2015 Instruction Type:Provider Instructions for Treatment How to access health informa tion online - Detail Indication:Sinusitis Start:19-Apr-2015 Instruction Type:Patient Education Patient Instructions Indication:Sinusitis Start:19-Apr-2015 Instruction Type:Provider Instructions for Treatment How to access health informa tion online Indication:Benign essential HTN Start:04-Apr-2015 Instruction Type:Patient Education How to access health informa tion online - Detail Indication:Benign essential HTN Start:04-Apr-2015 Instruction Type:Patient Education Patient Instructions Indication:Benign essential HTN Start:04-Apr-2015 Instruction Type:Provider Instructions for Treatment How to access health informa tion online Indication:Leg swelling Start:28-Mar-2015 Instruction Type:Patient Education How to access health informa tion online - Detail Indication:Leg swelling Start:28-Mar-2015 Instruction Type:Patient Education Patient Instructions Indication:Leg swelling Start:28-Mar-2015 Instruction Type:Provider Instructions for Treatment How to access health informa tion online Indication:Leg swelling Start:12-Mar-2015 Instruction Type:Patient Education How to access health informa tion online - Detail Indication:Leg swelling Start:12-Mar-2015 Instruction Type:Patient Education Patient Instructions Indication:Leg swelling Start:12-Mar-2015 Instruction Type:Provider Instructions for Treatment Patient Instructions Indication:Knee pain, right Start:05-Feb-2015 Instruction Type:Provider Instructions for Treatment How to access health informa tion online Indication:Abnormal urine odor Start:18-Oct-2014 Instruction Type:Patient Education How to access health informa tion online - Detail Indication:Abnormal urine odor Start:18-Oct-2014 Instruction Type:Patient Education Patient Instructions-- Indication:Abnormal urine odor Start:18-Oct-2014 Instruction Type:Provider Instructions for Treatment How to access health informa tion online Indication:COPD (chronic obstructive pulmonary disease) Start:09-Jun-2014 Instruction Type:Patient Education How to access health informa tion online - Detail Indication:COPD (chronic obstructive pulmonary disease) Start:09-Jun-2014 Instruction Type:Patient Education Patient Instructions Indication:COPD (chronic obstructive pulmonary disease) Start:09-Jun-2014 Instruction Type:Provider Instructions for Treatment Patient Instructions Indication:Fibromyalgia Start:03-Jun-2013 Instruction Type:Provider Instructions for Treatment Patient Instructions Indication:Cough Start:23-Mar-2013 Instruction Type:Provider Instructions for Treatment Patient Instructions Indication:Acute sinusitis, unspecified Start:11-Nov-2012 Instruction Type:Provider Instructions for Treatment Patient Instructions Indication:Well woman exam Start:12-Jul-2012 Instruction Type:Provider Instructions for Treatment Patient Instructions Indication:Encounter for other screening for malignant neoplasm of breast Start:01-Jul-2012 Instruction Type:Provider Instructions for Treatment [facility]; [facility] Work Phone: Instructions* Name Dates Details Patient Instructions Indication:Annual Medicare Physical WITH abnormal findings (Renamed from Encounter for general adult medical examination with abnormal findings) Start:21-Mar-2022 Instruction Type:Provider Instructions for Treatment How to Access Health Informa tion Online using Patient Portal and [employer] Apps Indication:Annual Medicare Physical WITH abnormal findings (Renamed from Encounter for general adult medical examination with abnormal findings) Start:21-Mar-2022 Instruction Type:Patient Education Patient Instructions Indication:Non-smoker Start:24-Jan-2022 Instruction Type:Provider Instructions for Treatment How to Access Health Informa tion Online using Patient Portal and [employer] Apps Indication:Non-smoker Start:24-Jan-2022 Instruction Type:Patient Education Patient Instructions Indication:Non-smoker Start:20-Mar-2021 Instruction Type:Provider Instructions for Treatment How to Access Health Informa tion Online using Patient Portal and [employer] Apps Indication:Non-smoker Start:20-Mar-2021 Instruction Type:Patient Education How to access health informa tion online Indication:BMI 30.0-30.9,adult Start:25-Jul-2020 Instruction Type:Patient Education How to access health informa tion online - Detail Indication:BMI 30.0-30.9,adult Start:25-Jul-2020 Instruction Type:Patient Education Patient Instructions Indication:BMI 30.0-30.9,adult Start:25-Jul-2020 Instruction Type:Provider Instructions for Treatment How to access health informa tion online Indication:Non-smoker Start:05-Sep-2019 Instruction Type:Patient Education How to access health informa tion online - Detail Indication:Non-smoker Start:05-Sep-2019 Instruction Type:Patient Education Patient Instructions Indication:Non-smoker Start:05-Sep-2019 Instruction Type:Provider Instructions for Treatment How to access health informa tion online Indication:Non-smoker Start:11-Jul-2019 Instruction Type:Patient Education How to access health informa tion online - Detail Indication:Non-smoker Start:11-Jul-2019 Instruction Type:Patient Education Patient Instructions Indication:Non-smoker Start:11-Jul-2019 Instruction Type:Provider Instructions for Treatment cardiovascular counseling Indication:Benign essential HTN Start:03-Sep-2018 Instruction Type:Provider Instructions for Treatment How to access health informa tion online Indication:BMI 31.0-31.9,adult Start:03-Sep-2018 Instruction Type:Patient Education How to access health informa tion online - Detail Indication:BMI 31.0-31.9,adult Start:03-Sep-2018 Instruction Type:Patient Education Patient Instructions Indication:BMI 31.0-31.9,adult Start:03-Sep-2018 Instruction Type:Provider Instructions for Treatment How to access health informa tion online Indication:Nonsmoker Start:26-May-2018 Instruction Type:Patient Education How to access health informa tion online - Detail Indication:Nonsmoker Start:26-May-2018 Instruction Type:Patient Education Patient Instructions Indication:Nonsmoker Start:26-May-2018 Instruction Type:Provider Instructions for Treatment How to access health informa tion online Indication:Nonsmoker Start:15-Oct-2017 Instruction Type:Patient Education How to access health informa tion online - Detail Indication:Nonsmoker Start:15-Oct-2017 Instruction Type:Patient Education Patient Instructions Indication:Nonsmoker Start:15-Oct-2017 Instruction Type:Provider Instructions for Treatment How to access health informa tion online Indication:Benign essential HTN Start:24-Sep-2017 Instruction Type:Patient Education How to access health informa tion online - Detail Indication:Benign essential HTN Start:24-Sep-2017 Instruction Type:Patient Education Patient Instructions Indication:Benign essential HTN Start:24-Sep-2017 Instruction Type:Provider Instructions for Treatment How to access health informa tion online Indication:Nonsmoker Start:10-Aug-2017 Instruction Type:Patient Education How to access health informa tion online - Detail Indication:Nonsmoker Start:10-Aug-2017 Instruction Type:Patient Education Patient Instructions Indication:Nonsmoker Start:10-Aug-2017 Instruction Type:Provider Instructions for Treatment How to access health informa tion online Indication:Body mass index 31.0-31.9, adult (Renamed from BMI 31.0-31.9,adult) Start:18-May-2017 Instruction Type:Patient Education How to access health informa tion online - Detail Indication:Body mass index 31.0-31.9, adult (Renamed from BMI 31.0-31.9,adult) Start:18-May-2017 Instruction Type:Patient Education Patient Instructions Indication:Body mass index 31.0-31.9, adult (Renamed from BMI 31.0-31.9,adult) Start:18-May-2017 Instruction Type:Provider Instructions for Treatment How to access health informa tion online Indication:Nonsmoker Start:24-Oct-2016 Instruction Type:Patient Education How to access health informa tion online - Detail Indication:Nonsmoker Start:24-Oct-2016 Instruction Type:Patient Education Patient Instructions Indication:Nonsmoker Start:24-Oct-2016 Instruction Type:Provider Instructions for Treatment How to access health informa tion online Indication:Nonsmoker Start:20-Oct-2016 Instruction Type:Patient Education How to access health informa tion online - Detail Indication:Nonsmoker Start:20-Oct-2016 Instruction Type:Patient Education Patient Instructions Indication:Nonsmoker Start:20-Oct-2016 Instruction Type:Provider Instructions for Treatment How to access health informa tion online Indication:Flu-like symptoms Start:14-Oct-2016 Instruction Type:Patient Education How to access health informa tion online - Detail Indication:Flu-like symptoms Start:14-Oct-2016 Instruction Type:Patient Education Patient Instructions Indication:Flu-like symptoms Start:14-Oct-2016 Instruction Type:Provider Instructions for Treatment How to access health informa tion online Indication:Nonsmoker Start:04-Sep-2016 Instruction Type:Patient Education How to access health informa tion online - Detail Indication:Nonsmoker Start:04-Sep-2016 Instruction Type:Patient Education Patient Instructions Indication:Nonsmoker Start:04-Sep-2016 Instruction Type:Provider Instructions for Treatment obesity counseling Indication:Benign essential HTN Start:29-Jul-2016 Instruction Type:Provider Instructions for Treatment How to access health informa tion online Indication:Benign essential HTN Start:29-Jul-2016 Instruction Type:Patient Education How to access health informa tion online - Detail Indication:Benign essential HTN Start:29-Jul-2016 Instruction Type:Patient Education Patient Instructions Indication:Benign essential HTN Start:29-Jul-2016 Instruction Type:Provider Instructions for Treatment How to access health informa tion online Indication:Phlebitis of arm Start:18-Dec-2015 Instruction Type:Patient Education How to access health informa tion online - Detail Indication:Phlebitis of arm Start:18-Dec-2015 Instruction Type:Patient Education Patient Instructions Indication:Phlebitis of arm Start:18-Dec-2015 Instruction Type:Provider Instructions for Treatment How to access health informa tion online Indication:Left arm swelling Start:17-Dec-2015 Instruction Type:Patient Education How to access health informa tion online - Detail Indication:Left arm swelling Start:17-Dec-2015 Instruction Type:Patient Education Patient Instructions Indication:Left arm swelling Start:17-Dec-2015 Instruction Type:Provider Instructions for Treatment How to access health informa tion online Indication:Lower GI bleed Start:14-Dec-2015 Instruction Type:Patient Education How to access health informa tion online - Detail Indication:Lower GI bleed Start:14-Dec-2015 Instruction Type:Patient Education instruction Indication:Lower GI bleed Start:14-Dec-2015 Instruction Type:Provider Instructions for Treatment How to access health informa tion online Indication:Vitamin D deficiency Start:26-Nov-2015 Instruction Type:Patient Education How to access health informa tion online - Detail Indication:Vitamin D deficiency Start:26-Nov-2015 Instruction Type:Patient Education Patient Instructions Indication:Vitamin D deficiency Start:26-Nov-2015 Instruction Type:Provider Instructions for Treatment How to access health informa tion online Indication:Hernia, umbilical Start:30-Aug-2015 Instruction Type:Patient Education How to access health informa tion online - Detail Indication:Hernia, umbilical Start:30-Aug-2015 Instruction Type:Patient Education Patient Instructions Indication:Hernia, umbilical Start:30-Aug-2015 Instruction Type:Provider Instructions for Treatment obesity counseling Indication:Benign essential HTN Start:29-Jun-2015 Instruction Type:Provider Instructions for Treatment How to access health informa tion online Indication:Annual Medicare Phyiscal WITHOUT abnormal findings (Renamed from Encounter for general adult medical examination without abnormal findings) Start:29-Jun-2015 Instruction Type:Patient Education How to access health informa tion online - Detail Indication:Annual Medicare Phyiscal WITHOUT abnormal findings (Renamed from Encounter for general adult medical examination without abnormal findings) Start:29-Jun-2015 Instruction Type:Patient Education Patient Instructions Indication:Annual Medicare Phyiscal WITHOUT abnormal findings (Renamed from Encounter for general adult medical examination without abnormal findings) Start:29-Jun-2015 Instruction Type:Provider Instructions for Treatment How to access health informa tion online - Detail Indication:Sinusitis Start:19-Apr-2015 Instruction Type:Patient Education Patient Instructions Indication:Sinusitis Start:19-Apr-2015 Instruction Type:Provider Instructions for Treatment How to access health informa tion online Indication:Benign essential HTN Start:04-Apr-2015 Instruction Type:Patient Education How to access health informa tion online - Detail Indication:Benign essential HTN Start:04-Apr-2015 Instruction Type:Patient Education Patient Instructions Indication:Benign essential HTN Start:04-Apr-2015 Instruction Type:Provider Instructions for Treatment How to access health informa tion online Indication:Leg swelling Start:28-Mar-2015 Instruction Type:Patient Education How to access health informa tion online - Detail Indication:Leg swelling Start:28-Mar-2015 Instruction Type:Patient Education Patient Instructions Indication:Leg swelling Start:28-Mar-2015 Instruction Type:Provider Instructions for Treatment How to access health informa tion online Indication:Leg swelling Start:12-Mar-2015 Instruction Type:Patient Education How to access health informa tion online - Detail Indication:Leg swelling Start:12-Mar-2015 Instruction Type:Patient Education Patient Instructions Indication:Leg swelling Start:12-Mar-2015 Instruction Type:Provider Instructions for Treatment Patient Instructions Indication:Knee pain, right Start:05-Feb-2015 Instruction Type:Provider Instructions for Treatment How to access health informa tion online Indication:Abnormal urine odor Start:18-Oct-2014 Instruction Type:Patient Education How to access health informa tion online - Detail Indication:Abnormal urine odor Start:18-Oct-2014 Instruction Type:Patient Education Patient Instructions-- Indication:Abnormal urine odor Start:18-Oct-2014 Instruction Type:Provider Instructions for Treatment How to access health informa tion online Indication:COPD (chronic obstructive pulmonary disease) Start:09-Jun-2014 Instruction Type:Patient Education How to access health informa tion online - Detail Indication:COPD (chronic obstructive pulmonary disease) Start:09-Jun-2014 Instruction Type:Patient Education Patient Instructions Indication:COPD (chronic obstructive pulmonary disease) Start:09-Jun-2014 Instruction Type:Provider Instructions for Treatment Patient Instructions Indication:Fibromyalgia Start:03-Jun-2013 Instruction Type:Provider Instructions for Treatment Patient Instructions Indication:Cough Start:23-Mar-2013 Instruction Type:Provider Instructions for Treatment Patient Instructions Indication:Acute sinusitis, unspecified Start:11-Nov-2012 Instruction Type:Provider Instructions for Treatment Patient Instructions Indication:Well woman exam Start:12-Jul-2012 Instruction Type:Provider Instructions for Treatment Patient Instructions Indication:Encounter for other screening for malignant neoplasm of breast Start:01-Jul-2012 Instruction Type:Provider Instructions for Treatment [facility]; [facility] Work Phone: Instructions* Name Dates Details Patient Instructions Indication:Annual Medicare Physical WITH abnormal findings (Renamed from Encounter for general adult medical examination with abnormal findings) Start:21-Mar-2022 Instruction Type:Provider Instructions for Treatment How to Access Health Informa tion Online using Patient Portal and [employer] Apps Indication:Annual Medicare Physical WITH abnormal findings (Renamed from Encounter for general adult medical examination with abnormal findings) Start:21-Mar-2022 Instruction Type:Patient Education Patient Instructions Indication:Non-smoker Start:24-Jan-2022 Instruction Type:Provider Instructions for Treatment How to Access Health Informa tion Online using Patient Portal and [employer]rd [employer] Apps Indication:Non-smoker Start:24-Jan-2022 Instruction Type:Patient Education Patient Instructions Indication:Non-smoker Start:20-Mar-2021 Instruction Type:Provider Instructions for Treatment How to Access Health Informa tion Online using Patient Portal and [employer]rd [employer] Apps Indication:Non-smoker Start:20-Mar-2021 Instruction Type:Patient Education How to access health informa tion online Indication:BMI 30.0-30.9,adult Start:25-Jul-2020 Instruction Type:Patient Education How to access health informa tion online - Detail Indication:BMI 30.0-30.9,adult Start:25-Jul-2020 Instruction Type:Patient Education Patient Instructions Indication:BMI 30.0-30.9,adult Start:25-Jul-2020 Instruction Type:Provider Instructions for Treatment How to access health informa tion online Indication:Non-smoker Start:05-Sep-2019 Instruction Type:Patient Education How to access health informa tion online - Detail Indication:Non-smoker Start:05-Sep-2019 Instruction Type:Patient Education Patient Instructions Indication:Non-smoker Start:05-Sep-2019 Instruction Type:Provider Instructions for Treatment How to access health informa tion online Indication:Non-smoker Start:11-Jul-2019 Instruction Type:Patient Education How to access health informa tion online - Detail Indication:Non-smoker Start:11-Jul-2019 Instruction Type:Patient Education Patient Instructions Indication:Non-smoker Start:11-Jul-2019 Instruction Type:Provider Instructions for Treatment cardiovascular counseling Indication:Benign essential HTN Start:03-Sep-2018 Instruction Type:Provider Instructions for Treatment How to access health informa tion online Indication:BMI 31.0-31.9,adult Start:03-Sep-2018 Instruction Type:Patient Education How to access health informa tion online - Detail Indication:BMI 31.0-31.9,adult Start:03-Sep-2018 Instruction Type:Patient Education Patient Instructions Indication:BMI 31.0-31.9,adult Start:03-Sep-2018 Instruction Type:Provider Instructions for Treatment How to access health informa tion online Indication:Nonsmoker Start:26-May-2018 Instruction Type:Patient Education How to access health informa tion online - Detail Indication:Nonsmoker Start:26-May-2018 Instruction Type:Patient Education Patient Instructions Indication:Nonsmoker Start:26-May-2018 Instruction Type:Provider Instructions for Treatment How to access health informa tion online Indication:Nonsmoker Start:15-Oct-2017 Instruction Type:Patient Education How to access health informa tion online - Detail Indication:Nonsmoker Start:15-Oct-2017 Instruction Type:Patient Education Patient Instructions Indication:Nonsmoker Start:15-Oct-2017 Instruction Type:Provider Instructions for Treatment How to access health informa tion online Indication:Benign essential HTN Start:24-Sep-2017 Instruction Type:Patient Education How to access health informa tion online - Detail Indication:Benign essential HTN Start:24-Sep-2017 Instruction Type:Patient Education Patient Instructions Indication:Benign essential HTN Start:24-Sep-2017 Instruction Type:Provider Instructions for Treatment How to access health informa tion online Indication:Nonsmoker Start:10-Aug-2017 Instruction Type:Patient Education How to access health informa tion online - Detail Indication:Nonsmoker Start:10-Aug-2017 Instruction Type:Patient Education Patient Instructions Indication:Nonsmoker Start:10-Aug-2017 Instruction Type:Provider Instructions for Treatment How to access health informa tion online Indication:Body mass index 31.0-31.9, adult (Renamed from BMI 31.0-31.9,adult) Start:18-May-2017 Instruction Type:Patient Education How to access health informa tion online - Detail Indication:Body mass index 31.0-31.9, adult (Renamed from BMI 31.0-31.9,adult) Start:18-May-2017 Instruction Type:Patient Education Patient Instructions Indication:Body mass index 31.0-31.9, adult (Renamed from BMI 31.0-31.9,adult) Start:18-May-2017 Instruction Type:Provider Instructions for Treatment How to access health informa tion online Indication:Nonsmoker Start:24-Oct-2016 Instruction Type:Patient Education How to access health informa tion online - Detail Indication:Nonsmoker Start:24-Oct-2016 Instruction Type:Patient Education Patient Instructions Indication:Nonsmoker Start:24-Oct-2016 Instruction Type:Provider Instructions for Treatment How to access health informa tion online Indication:Nonsmoker Start:20-Oct-2016 Instruction Type:Patient Education How to access health informa tion online - Detail Indication:Nonsmoker Start:20-Oct-2016 Instruction Type:Patient Education Patient Instructions Indication:Nonsmoker Start:20-Oct-2016 Instruction Type:Provider Instructions for Treatment How to access health informa tion online Indication:Flu-like symptoms Start:14-Oct-2016 Instruction Type:Patient Education How to access health informa tion online - Detail Indication:Flu-like symptoms Start:14-Oct-2016 Instruction Type:Patient Education Patient Instructions Indication:Flu-like symptoms Start:14-Oct-2016 Instruction Type:Provider Instructions for Treatment How to access health informa tion online Indication:Nonsmoker Start:04-Sep-2016 Instruction Type:Patient Education How to access health informa tion online - Detail Indication:Nonsmoker Start:04-Sep-2016 Instruction Type:Patient Education Patient Instructions Indication:Nonsmoker Start:04-Sep-2016 Instruction Type:Provider Instructions for Treatment obesity counseling Indication:Benign essential HTN Start:29-Jul-2016 Instruction Type:Provider Instructions for Treatment How to access health informa tion online Indication:Benign essential HTN Start:29-Jul-2016 Instruction Type:Patient Education How to access health informa tion online - Detail Indication:Benign essential HTN Start:29-Jul-2016 Instruction Type:Patient Education Patient Instructions Indication:Benign essential HTN Start:29-Jul-2016 Instruction Type:Provider Instructions for Treatment How to access health informa tion online Indication:Phlebitis of arm Start:18-Dec-2015 Instruction Type:Patient Education How to access health informa tion online - Detail Indication:Phlebitis of arm Start:18-Dec-2015 Instruction Type:Patient Education Patient Instructions Indication:Phlebitis of arm Start:18-Dec-2015 Instruction Type:Provider Instructions for Treatment How to access health informa tion online Indication:Left arm swelling Start:17-Dec-2015 Instruction Type:Patient Education How to access health informa tion online - Detail Indication:Left arm swelling Start:17-Dec-2015 Instruction Type:Patient Education Patient Instructions Indication:Left arm swelling Start:17-Dec-2015 Instruction Type:Provider Instructions for Treatment How to access health informa tion online Indication:Lower GI bleed Start:14-Dec-2015 Instruction Type:Patient Education How to access health informa tion online - Detail Indication:Lower GI bleed Start:14-Dec-2015 Instruction Type:Patient Education instruction Indication:Lower GI bleed Start:14-Dec-2015 Instruction Type:Provider Instructions for Treatment How to access health informa tion online Indication:Vitamin D deficiency Start:26-Nov-2015 Instruction Type:Patient Education How to access health informa tion online - Detail Indication:Vitamin D deficiency Start:26-Nov-2015 Instruction Type:Patient Education Patient Instructions Indication:Vitamin D deficiency Start:26-Nov-2015 Instruction Type:Provider Instructions for Treatment How to access health informa tion online Indication:Hernia, umbilical Start:30-Aug-2015 Instruction Type:Patient Education How to access health informa tion online - Detail Indication:Hernia, umbilical Start:30-Aug-2015 Instruction Type:Patient Education Patient Instructions Indication:Hernia, umbilical Start:30-Aug-2015 Instruction Type:Provider Instructions for Treatment obesity counseling Indication:Benign essential HTN Start:29-Jun-2015 Instruction Type:Provider Instructions for Treatment How to access health informa tion online Indication:Annual Medicare Phyiscal WITHOUT abnormal findings (Renamed from Encounter for general adult medical examination without abnormal findings) Start:29-Jun-2015 Instruction Type:Patient Education How to access health informa tion online - Detail Indication:Annual Medicare Phyiscal WITHOUT abnormal findings (Renamed from Encounter for general adult medical examination without abnormal findings) Start:29-Jun-2015 Instruction Type:Patient Education Patient Instructions Indication:Annual Medicare Phyiscal WITHOUT abnormal findings (Renamed from Encounter for general adult medical examination without abnormal findings) Start:29-Jun-2015 Instruction Type:Provider Instructions for Treatment How to access health informa tion online - Detail Indication:Sinusitis Start:19-Apr-2015 Instruction Type:Patient Education Patient Instructions Indication:Sinusitis Start:19-Apr-2015 Instruction Type:Provider Instructions for Treatment How to access health informa tion online Indication:Benign essential HTN Start:04-Apr-2015 Instruction Type:Patient Education How to access health informa tion online - Detail Indication:Benign essential HTN Start:04-Apr-2015 Instruction Type:Patient Education Patient Instructions Indication:Benign essential HTN Start:04-Apr-2015 Instruction Type:Provider Instructions for Treatment How to access health informa tion online Indication:Leg swelling Start:28-Mar-2015 Instruction Type:Patient Education How to access health informa tion online - Detail Indication:Leg swelling Start:28-Mar-2015 Instruction Type:Patient Education Patient Instructions Indication:Leg swelling Start:28-Mar-2015 Instruction Type:Provider Instructions for Treatment How to access health informa tion online Indication:Leg swelling Start:12-Mar-2015 Instruction Type:Patient Education How to access health informa tion online - Detail Indication:Leg swelling Start:12-Mar-2015 Instruction Type:Patient Education Patient Instructions Indication:Leg swelling Start:12-Mar-2015 Instruction Type:Provider Instructions for Treatment Patient Instructions Indication:Knee pain, right Start:05-Feb-2015 Instruction Type:Provider Instructions for Treatment How to access health informa tion online Indication:Abnormal urine odor Start:18-Oct-2014 Instruction Type:Patient Education How to access health informa tion online - Detail Indication:Abnormal urine odor Start:18-Oct-2014 Instruction Type:Patient Education Patient Instructions-- Indication:Abnormal urine odor Start:18-Oct-2014 Instruction Type:Provider Instructions for Treatment How to access health informa tion online Indication:COPD (chronic obstructive pulmonary disease) Start:09-Jun-2014 Instruction Type:Patient Education How to access health informa tion online - Detail Indication:COPD (chronic obstructive pulmonary disease) Start:09-Jun-2014 Instruction Type:Patient Education Patient Instructions Indication:COPD (chronic obstructive pulmonary disease) Start:09-Jun-2014 Instruction Type:Provider Instructions for Treatment Patient Instructions Indication:Fibromyalgia Start:03-Jun-2013 Instruction Type:Provider Instructions for Treatment Patient Instructions Indication:Cough Start:23-Mar-2013 Instruction Type:Provider Instructions for Treatment Patient Instructions Indication:Acute sinusitis, unspecified Start:11-Nov-2012 Instruction Type:Provider Instructions for Treatment Patient Instructions Indication:Well woman exam Start:12-Jul-2012 Instruction Type:Provider Instructions for Treatment Patient Instructions Indication:Encounter for other screening for malignant neoplasm of breast Start:01-Jul-2012 Instruction Type:Provider Instructions for Treatment [facility]; [facility] Work Phone: Instructions* Name Dates Details Patient Instructions Indication:Annual Medicare Physical WITH abnormal findings (Renamed from Encounter for general adult medical examination with abnormal findings) Start:21-Mar-2022 Instruction Type:Provider Instructions for Treatment How to Access Health Informa tion Online using Patient Portal and [employer] Apps Indication:Annual Medicare Physical WITH abnormal findings (Renamed from Encounter for general adult medical examination with abnormal findings) Start:21-Mar-2022 Instruction Type:Patient Education Patient Instructions Indication:Non-smoker Start:24-Jan-2022 Instruction Type:Provider Instructions for Treatment How to Access Health Informa tion Online using Patient Portal and [employer] Apps Indication:Non-smoker Start:24-Jan-2022 Instruction Type:Patient Education Patient Instructions Indication:Non-smoker Start:20-Mar-2021 Instruction Type:Provider Instructions for Treatment How to Access Health Informa tion Online using Patient Portal and [employer] Apps Indication:Non-smoker Start:20-Mar-2021 Instruction Type:Patient Education How to access health informa tion online Indication:BMI 30.0-30.9,adult Start:25-Jul-2020 Instruction Type:Patient Education How to access health informa tion online - Detail Indication:BMI 30.0-30.9,adult Start:25-Jul-2020 Instruction Type:Patient Education Patient Instructions Indication:BMI 30.0-30.9,adult Start:25-Jul-2020 Instruction Type:Provider Instructions for Treatment How to access health informa tion online Indication:Non-smoker Start:05-Sep-2019 Instruction Type:Patient Education How to access health informa tion online - Detail Indication:Non-smoker Start:05-Sep-2019 Instruction Type:Patient Education Patient Instructions Indication:Non-smoker Start:05-Sep-2019 Instruction Type:Provider Instructions for Treatment How to access health informa tion online Indication:Non-smoker Start:11-Jul-2019 Instruction Type:Patient Education How to access health informa tion online - Detail Indication:Non-smoker Start:11-Jul-2019 Instruction Type:Patient Education Patient Instructions Indication:Non-smoker Start:11-Jul-2019 Instruction Type:Provider Instructions for Treatment cardiovascular counseling Indication:Benign essential HTN Start:03-Sep-2018 Instruction Type:Provider Instructions for Treatment How to access health informa tion online Indication:BMI 31.0-31.9,adult Start:03-Sep-2018 Instruction Type:Patient Education How to access health informa tion online - Detail Indication:BMI 31.0-31.9,adult Start:03-Sep-2018 Instruction Type:Patient Education Patient Instructions Indication:BMI 31.0-31.9,adult Start:03-Sep-2018 Instruction Type:Provider Instructions for Treatment How to access health informa tion online Indication:Nonsmoker Start:26-May-2018 Instruction Type:Patient Education How to access health informa tion online - Detail Indication:Nonsmoker Start:26-May-2018 Instruction Type:Patient Education Patient Instructions Indication:Nonsmoker Start:26-May-2018 Instruction Type:Provider Instructions for Treatment How to access health informa tion online Indication:Nonsmoker Start:15-Oct-2017 Instruction Type:Patient Education How to access health informa tion online - Detail Indication:Nonsmoker Start:15-Oct-2017 Instruction Type:Patient Education Patient Instructions Indication:Nonsmoker Start:15-Oct-2017 Instruction Type:Provider Instructions for Treatment How to access health informa tion online Indication:Benign essential HTN Start:24-Sep-2017 Instruction Type:Patient Education How to access health informa tion online - Detail Indication:Benign essential HTN Start:24-Sep-2017 Instruction Type:Patient Education Patient Instructions Indication:Benign essential HTN Start:24-Sep-2017 Instruction Type:Provider Instructions for Treatment How to access health informa tion online Indication:Nonsmoker Start:10-Aug-2017 Instruction Type:Patient Education How to access health informa tion online - Detail Indication:Nonsmoker Start:10-Aug-2017 Instruction Type:Patient Education Patient Instructions Indication:Nonsmoker Start:10-Aug-2017 Instruction Type:Provider Instructions for Treatment How to access health informa tion online Indication:Body mass index 31.0-31.9, adult (Renamed from BMI 31.0-31.9,adult) Start:18-May-2017 Instruction Type:Patient Education How to access health informa tion online - Detail Indication:Body mass index 31.0-31.9, adult (Renamed from BMI 31.0-31.9,adult) Start:18-May-2017 Instruction Type:Patient Education Patient Instructions Indication:Body mass index 31.0-31.9, adult (Renamed from BMI 31.0-31.9,adult) Start:18-May-2017 Instruction Type:Provider Instructions for Treatment How to access health informa tion online Indication:Nonsmoker Start:24-Oct-2016 Instruction Type:Patient Education How to access health informa tion online - Detail Indication:Nonsmoker Start:24-Oct-2016 Instruction Type:Patient Education Patient Instructions Indication:Nonsmoker Start:24-Oct-2016 Instruction Type:Provider Instructions for Treatment How to access health informa tion online Indication:Nonsmoker Start:20-Oct-2016 Instruction Type:Patient Education How to access health informa tion online - Detail Indication:Nonsmoker Start:20-Oct-2016 Instruction Type:Patient Education Patient Instructions Indication:Nonsmoker Start:20-Oct-2016 Instruction Type:Provider Instructions for Treatment How to access health informa tion online Indication:Flu-like symptoms Start:14-Oct-2016 Instruction Type:Patient Education How to access health informa tion online - Detail Indication:Flu-like symptoms Start:14-Oct-2016 Instruction Type:Patient Education Patient Instructions Indication:Flu-like symptoms Start:14-Oct-2016 Instruction Type:Provider Instructions for Treatment How to access health informa tion online Indication:Nonsmoker Start:04-Sep-2016 Instruction Type:Patient Education How to access health informa tion online - Detail Indication:Nonsmoker Start:04-Sep-2016 Instruction Type:Patient Education Patient Instructions Indication:Nonsmoker Start:04-Sep-2016 Instruction Type:Provider Instructions for Treatment obesity counseling Indication:Benign essential HTN Start:29-Jul-2016 Instruction Type:Provider Instructions for Treatment How to access health informa tion online Indication:Benign essential HTN Start:29-Jul-2016 Instruction Type:Patient Education How to access health informa tion online - Detail Indication:Benign essential HTN Start:29-Jul-2016 Instruction Type:Patient Education Patient Instructions Indication:Benign essential HTN Start:29-Jul-2016 Instruction Type:Provider Instructions for Treatment How to access health informa tion online Indication:Phlebitis of arm Start:18-Dec-2015 Instruction Type:Patient Education How to access health informa tion online - Detail Indication:Phlebitis of arm Start:18-Dec-2015 Instruction Type:Patient Education Patient Instructions Indication:Phlebitis of arm Start:18-Dec-2015 Instruction Type:Provider Instructions for Treatment How to access health informa tion online Indication:Left arm swelling Start:17-Dec-2015 Instruction Type:Patient Education How to access health informa tion online - Detail Indication:Left arm swelling Start:17-Dec-2015 Instruction Type:Patient Education Patient Instructions Indication:Left arm swelling Start:17-Dec-2015 Instruction Type:Provider Instructions for Treatment How to access health informa tion online Indication:Lower GI bleed Start:14-Dec-2015 Instruction Type:Patient Education How to access health informa tion online - Detail Indication:Lower GI bleed Start:14-Dec-2015 Instruction Type:Patient Education instruction Indication:Lower GI bleed Start:14-Dec-2015 Instruction Type:Provider Instructions for Treatment How to access health informa tion online Indication:Vitamin D deficiency Start:26-Nov-2015 Instruction Type:Patient Education How to access health informa tion online - Detail Indication:Vitamin D deficiency Start:26-Nov-2015 Instruction Type:Patient Education Patient Instructions Indication:Vitamin D deficiency Start:26-Nov-2015 Instruction Type:Provider Instructions for Treatment How to access health informa tion online Indication:Hernia, umbilical Start:30-Aug-2015 Instruction Type:Patient Education How to access health informa tion online - Detail Indication:Hernia, umbilical Start:30-Aug-2015 Instruction Type:Patient Education Patient Instructions Indication:Hernia, umbilical Start:30-Aug-2015 Instruction Type:Provider Instructions for Treatment obesity counseling Indication:Benign essential HTN Start:29-Jun-2015 Instruction Type:Provider Instructions for Treatment How to access health informa tion online Indication:Annual Medicare Phyiscal WITHOUT abnormal findings (Renamed from Encounter for general adult medical examination without abnormal findings) Start:29-Jun-2015 Instruction Type:Patient Education How to access health informa tion online - Detail Indication:Annual Medicare Phyiscal WITHOUT abnormal findings (Renamed from Encounter for general adult medical examination without abnormal findings) Start:29-Jun-2015 Instruction Type:Patient Education Patient Instructions Indication:Annual Medicare Phyiscal WITHOUT abnormal findings (Renamed from Encounter for general adult medical examination without abnormal findings) Start:29-Jun-2015 Instruction Type:Provider Instructions for Treatment How to access health informa tion online - Detail Indication:Sinusitis Start:19-Apr-2015 Instruction Type:Patient Education Patient Instructions Indication:Sinusitis Start:19-Apr-2015 Instruction Type:Provider Instructions for Treatment How to access health informa tion online Indication:Benign essential HTN Start:04-Apr-2015 Instruction Type:Patient Education How to access health informa tion online - Detail Indication:Benign essential HTN Start:04-Apr-2015 Instruction Type:Patient Education Patient Instructions Indication:Benign essential HTN Start:04-Apr-2015 Instruction Type:Provider Instructions for Treatment How to access health informa tion online Indication:Leg swelling Start:28-Mar-2015 Instruction Type:Patient Education How to access health informa tion online - Detail Indication:Leg swelling Start:28-Mar-2015 Instruction Type:Patient Education Patient Instructions Indication:Leg swelling Start:28-Mar-2015 Instruction Type:Provider Instructions for Treatment How to access health informa tion online Indication:Leg swelling Start:12-Mar-2015 Instruction Type:Patient Education How to access health informa tion online - Detail Indication:Leg swelling Start:12-Mar-2015 Instruction Type:Patient Education Patient Instructions Indication:Leg swelling Start:12-Mar-2015 Instruction Type:Provider Instructions for Treatment Patient Instructions Indication:Knee pain, right Start:05-Feb-2015 Instruction Type:Provider Instructions for Treatment How to access health informa tion online Indication:Abnormal urine odor Start:18-Oct-2014 Instruction Type:Patient Education How to access health informa tion online - Detail Indication:Abnormal urine odor Start:18-Oct-2014 Instruction Type:Patient Education Patient Instructions-- Indication:Abnormal urine odor Start:18-Oct-2014 Instruction Type:Provider Instructions for Treatment How to access health informa tion online Indication:COPD (chronic obstructive pulmonary disease) Start:09-Jun-2014 Instruction Type:Patient Education How to access health informa tion online - Detail Indication:COPD (chronic obstructive pulmonary disease) Start:09-Jun-2014 Instruction Type:Patient Education Patient Instructions Indication:COPD (chronic obstructive pulmonary disease) Start:09-Jun-2014 Instruction Type:Provider Instructions for Treatment Patient Instructions Indication:Fibromyalgia Start:03-Jun-2013 Instruction Type:Provider Instructions for Treatment Patient Instructions Indication:Cough Start:23-Mar-2013 Instruction Type:Provider Instructions for Treatment Patient Instructions Indication:Acute sinusitis, unspecified Start:11-Nov-2012 Instruction Type:Provider Instructions for Treatment Patient Instructions Indication:Well woman exam Start:12-Jul-2012 Instruction Type:Provider Instructions for Treatment Patient Instructions Indication:Encounter for other screening for malignant neoplasm of breast Start:01-Jul-2012 Instruction Type:Provider Instructions for Treatment [facility]; [facility] Work Phone: Instructions* Name Dates Details Patient Instructions Indication:Annual Medicare Physical WITH abnormal findings (Renamed from Encounter for general adult medical examination with abnormal findings) Start:21-Mar-2022 Instruction Type:Provider Instructions for Treatment How to Access Health Informa tion Online using Patient Portal and [employer] Apps Indication:Annual Medicare Physical WITH abnormal findings (Renamed from Encounter for general adult medical examination with abnormal findings) Start:21-Mar-2022 Instruction Type:Patient Education Patient Instructions Indication:Non-smoker Start:24-Jan-2022 Instruction Type:Provider Instructions for Treatment How to Access Health Informa tion Online using Patient Portal and [employer] Apps Indication:Non-smoker Start:24-Jan-2022 Instruction Type:Patient Education Patient Instructions Indication:Non-smoker Start:20-Mar-2021 Instruction Type:Provider Instructions for Treatment How to Access Health Informa tion Online using Patient Portal and [employer] Apps Indication:Non-smoker Start:20-Mar-2021 Instruction Type:Patient Education How to access health informa tion online Indication:BMI 30.0-30.9,adult Start:25-Jul-2020 Instruction Type:Patient Education How to access health informa tion online - Detail Indication:BMI 30.0-30.9,adult Start:25-Jul-2020 Instruction Type:Patient Education Patient Instructions Indication:BMI 30.0-30.9,adult Start:25-Jul-2020 Instruction Type:Provider Instructions for Treatment How to access health informa tion online Indication:Non-smoker Start:05-Sep-2019 Instruction Type:Patient Education How to access health informa tion online - Detail Indication:Non-smoker Start:05-Sep-2019 Instruction Type:Patient Education Patient Instructions Indication:Non-smoker Start:05-Sep-2019 Instruction Type:Provider Instructions for Treatment How to access health informa tion online Indication:Non-smoker Start:11-Jul-2019 Instruction Type:Patient Education How to access health informa tion online - Detail Indication:Non-smoker Start:11-Jul-2019 Instruction Type:Patient Education Patient Instructions Indication:Non-smoker Start:11-Jul-2019 Instruction Type:Provider Instructions for Treatment cardiovascular counseling Indication:Benign essential HTN Start:03-Sep-2018 Instruction Type:Provider Instructions for Treatment How to access health informa tion online Indication:BMI 31.0-31.9,adult Start:03-Sep-2018 Instruction Type:Patient Education How to access health informa tion online - Detail Indication:BMI 31.0-31.9,adult Start:03-Sep-2018 Instruction Type:Patient Education Patient Instructions Indication:BMI 31.0-31.9,adult Start:03-Sep-2018 Instruction Type:Provider Instructions for Treatment How to access health informa tion online Indication:Nonsmoker Start:26-May-2018 Instruction Type:Patient Education How to access health informa tion online - Detail Indication:Nonsmoker Start:26-May-2018 Instruction Type:Patient Education Patient Instructions Indication:Nonsmoker Start:26-May-2018 Instruction Type:Provider Instructions for Treatment How to access health informa tion online Indication:Nonsmoker Start:15-Oct-2017 Instruction Type:Patient Education How to access health informa tion online - Detail Indication:Nonsmoker Start:15-Oct-2017 Instruction Type:Patient Education Patient Instructions Indication:Nonsmoker Start:15-Oct-2017 Instruction Type:Provider Instructions for Treatment How to access health informa tion online Indication:Benign essential HTN Start:24-Sep-2017 Instruction Type:Patient Education How to access health informa tion online - Detail Indication:Benign essential HTN Start:24-Sep-2017 Instruction Type:Patient Education Patient Instructions Indication:Benign essential HTN Start:24-Sep-2017 Instruction Type:Provider Instructions for Treatment How to access health informa tion online Indication:Nonsmoker Start:10-Aug-2017 Instruction Type:Patient Education How to access health informa tion online - Detail Indication:Nonsmoker Start:10-Aug-2017 Instruction Type:Patient Education Patient Instructions Indication:Nonsmoker Start:10-Aug-2017 Instruction Type:Provider Instructions for Treatment How to access health informa tion online Indication:Body mass index 31.0-31.9, adult (Renamed from BMI 31.0-31.9,adult) Start:18-May-2017 Instruction Type:Patient Education How to access health informa tion online - Detail Indication:Body mass index 31.0-31.9, adult (Renamed from BMI 31.0-31.9,adult) Start:18-May-2017 Instruction Type:Patient Education Patient Instructions Indication:Body mass index 31.0-31.9, adult (Renamed from BMI 31.0-31.9,adult) Start:18-May-2017 Instruction Type:Provider Instructions for Treatment How to access health informa tion online Indication:Nonsmoker Start:24-Oct-2016 Instruction Type:Patient Education How to access health informa tion online - Detail Indication:Nonsmoker Start:24-Oct-2016 Instruction Type:Patient Education Patient Instructions Indication:Nonsmoker Start:24-Oct-2016 Instruction Type:Provider Instructions for Treatment How to access health informa tion online Indication:Nonsmoker Start:20-Oct-2016 Instruction Type:Patient Education How to access health informa tion online - Detail Indication:Nonsmoker Start:20-Oct-2016 Instruction Type:Patient Education Patient Instructions Indication:Nonsmoker Start:20-Oct-2016 Instruction Type:Provider Instructions for Treatment How to access health informa tion online Indication:Flu-like symptoms Start:14-Oct-2016 Instruction Type:Patient Education How to access health informa tion online - Detail Indication:Flu-like symptoms Start:14-Oct-2016 Instruction Type:Patient Education Patient Instructions Indication:Flu-like symptoms Start:14-Oct-2016 Instruction Type:Provider Instructions for Treatment How to access health informa tion online Indication:Nonsmoker Start:04-Sep-2016 Instruction Type:Patient Education How to access health informa tion online - Detail Indication:Nonsmoker Start:04-Sep-2016 Instruction Type:Patient Education Patient Instructions Indication:Nonsmoker Start:04-Sep-2016 Instruction Type:Provider Instructions for Treatment obesity counseling Indication:Benign essential HTN Start:29-Jul-2016 Instruction Type:Provider Instructions for Treatment How to access health informa tion online Indication:Benign essential HTN Start:29-Jul-2016 Instruction Type:Patient Education How to access health informa tion online - Detail Indication:Benign essential HTN Start:29-Jul-2016 Instruction Type:Patient Education Patient Instructions Indication:Benign essential HTN Start:29-Jul-2016 Instruction Type:Provider Instructions for Treatment How to access health informa tion online Indication:Phlebitis of arm Start:18-Dec-2015 Instruction Type:Patient Education How to access health informa tion online - Detail Indication:Phlebitis of arm Start:18-Dec-2015 Instruction Type:Patient Education Patient Instructions Indication:Phlebitis of arm Start:18-Dec-2015 Instruction Type:Provider Instructions for Treatment How to access health informa tion online Indication:Left arm swelling Start:17-Dec-2015 Instruction Type:Patient Education How to access health informa tion online - Detail Indication:Left arm swelling Start:17-Dec-2015 Instruction Type:Patient Education Patient Instructions Indication:Left arm swelling Start:17-Dec-2015 Instruction Type:Provider Instructions for Treatment How to access health informa tion online Indication:Lower GI bleed Start:14-Dec-2015 Instruction Type:Patient Education How to access health informa tion online - Detail Indication:Lower GI bleed Start:14-Dec-2015 Instruction Type:Patient Education instruction Indication:Lower GI bleed Start:14-Dec-2015 Instruction Type:Provider Instructions for Treatment How to access health informa tion online Indication:Vitamin D deficiency Start:26-Nov-2015 Instruction Type:Patient Education How to access health informa tion online - Detail Indication:Vitamin D deficiency Start:26-Nov-2015 Instruction Type:Patient Education Patient Instructions Indication:Vitamin D deficiency Start:26-Nov-2015 Instruction Type:Provider Instructions for Treatment How to access health informa tion online Indication:Hernia, umbilical Start:30-Aug-2015 Instruction Type:Patient Education How to access health informa tion online - Detail Indication:Hernia, umbilical Start:30-Aug-2015 Instruction Type:Patient Education Patient Instructions Indication:Hernia, umbilical Start:30-Aug-2015 Instruction Type:Provider Instructions for Treatment obesity counseling Indication:Benign essential HTN Start:29-Jun-2015 Instruction Type:Provider Instructions for Treatment How to access health informa tion online Indication:Annual Medicare Phyiscal WITHOUT abnormal findings (Renamed from Encounter for general adult medical examination without abnormal findings) Start:29-Jun-2015 Instruction Type:Patient Education How to access health informa tion online - Detail Indication:Annual Medicare Phyiscal WITHOUT abnormal findings (Renamed from Encounter for general adult medical examination without abnormal findings) Start:29-Jun-2015 Instruction Type:Patient Education Patient Instructions Indication:Annual Medicare Phyiscal WITHOUT abnormal findings (Renamed from Encounter for general adult medical examination without abnormal findings) Start:29-Jun-2015 Instruction Type:Provider Instructions for Treatment How to access health informa tion online - Detail Indication:Sinusitis Start:19-Apr-2015 Instruction Type:Patient Education Patient Instructions Indication:Sinusitis Start:19-Apr-2015 Instruction Type:Provider Instructions for Treatment How to access health informa tion online Indication:Benign essential HTN Start:04-Apr-2015 Instruction Type:Patient Education How to access health informa tion online - Detail Indication:Benign essential HTN Start:04-Apr-2015 Instruction Type:Patient Education Patient Instructions Indication:Benign essential HTN Start:04-Apr-2015 Instruction Type:Provider Instructions for Treatment How to access health informa tion online Indication:Leg swelling Start:28-Mar-2015 Instruction Type:Patient Education How to access health informa tion online - Detail Indication:Leg swelling Start:28-Mar-2015 Instruction Type:Patient Education Patient Instructions Indication:Leg swelling Start:28-Mar-2015 Instruction Type:Provider Instructions for Treatment How to access health informa tion online Indication:Leg swelling Start:12-Mar-2015 Instruction Type:Patient Education How to access health informa tion online - Detail Indication:Leg swelling Start:12-Mar-2015 Instruction Type:Patient Education Patient Instructions Indication:Leg swelling Start:12-Mar-2015 Instruction Type:Provider Instructions for Treatment Patient Instructions Indication:Knee pain, right Start:05-Feb-2015 Instruction Type:Provider Instructions for Treatment How to access health informa tion online Indication:Abnormal urine odor Start:18-Oct-2014 Instruction Type:Patient Education How to access health informa tion online - Detail Indication:Abnormal urine odor Start:18-Oct-2014 Instruction Type:Patient Education Patient Instructions-- Indication:Abnormal urine odor Start:18-Oct-2014 Instruction Type:Provider Instructions for Treatment How to access health informa tion online Indication:COPD (chronic obstructive pulmonary disease) Start:09-Jun-2014 Instruction Type:Patient Education How to access health informa tion online - Detail Indication:COPD (chronic obstructive pulmonary disease) Start:09-Jun-2014 Instruction Type:Patient Education Patient Instructions Indication:COPD (chronic obstructive pulmonary disease) Start:09-Jun-2014 Instruction Type:Provider Instructions for Treatment Patient Instructions Indication:Fibromyalgia Start:03-Jun-2013 Instruction Type:Provider Instructions for Treatment Patient Instructions Indication:Cough Start:23-Mar-2013 Instruction Type:Provider Instructions for Treatment Patient Instructions Indication:Acute sinusitis, unspecified Start:11-Nov-2012 Instruction Type:Provider Instructions for Treatment Patient Instructions Indication:Well woman exam Start:12-Jul-2012 Instruction Type:Provider Instructions for Treatment Patient Instructions Indication:Encounter for other screening for malignant neoplasm of breast Start:01-Jul-2012 Instruction Type:Provider Instructions for Treatment [facility]; [facility] Work Phone: Instructions* Name Dates Details Patient Instructions Indication:Annual Medicare Physical WITH abnormal findings (Renamed from Encounter for general adult medical examination with abnormal findings) Start:21-Mar-2022 Instruction Type:Provider Instructions for Treatment How to Access Health Informa tion Online using Patient Portal and [employer]rd [employer] Apps Indication:Annual Medicare Physical WITH abnormal findings (Renamed from Encounter for general adult medical examination with abnormal findings) Start:21-Mar-2022 Instruction Type:Patient Education Patient Instructions Indication:Non-smoker Start:24-Jan-2022 Instruction Type:Provider Instructions for Treatment How to Access Health Informa tion Online using Patient Portal and [employer]rd [employer] Apps Indication:Non-smoker Start:24-Jan-2022 Instruction Type:Patient Education Patient Instructions Indication:Non-smoker Start:20-Mar-2021 Instruction Type:Provider Instructions for Treatment How to Access Health Informa tion Online using Patient Portal and [employer]rd [employer] Apps Indication:Non-smoker Start:20-Mar-2021 Instruction Type:Patient Education How to access health informa tion online Indication:BMI 30.0-30.9,adult Start:25-Jul-2020 Instruction Type:Patient Education How to access health informa tion online - Detail Indication:BMI 30.0-30.9,adult Start:25-Jul-2020 Instruction Type:Patient Education Patient Instructions Indication:BMI 30.0-30.9,adult Start:25-Jul-2020 Instruction Type:Provider Instructions for Treatment How to access health informa tion online Indication:Non-smoker Start:05-Sep-2019 Instruction Type:Patient Education How to access health informa tion online - Detail Indication:Non-smoker Start:05-Sep-2019 Instruction Type:Patient Education Patient Instructions Indication:Non-smoker Start:05-Sep-2019 Instruction Type:Provider Instructions for Treatment How to access health informa tion online Indication:Non-smoker Start:11-Jul-2019 Instruction Type:Patient Education How to access health informa tion online - Detail Indication:Non-smoker Start:11-Jul-2019 Instruction Type:Patient Education Patient Instructions Indication:Non-smoker Start:11-Jul-2019 Instruction Type:Provider Instructions for Treatment cardiovascular counseling Indication:Benign essential HTN Start:03-Sep-2018 Instruction Type:Provider Instructions for Treatment How to access health informa tion online Indication:BMI 31.0-31.9,adult Start:03-Sep-2018 Instruction Type:Patient Education How to access health informa tion online - Detail Indication:BMI 31.0-31.9,adult Start:03-Sep-2018 Instruction Type:Patient Education Patient Instructions Indication:BMI 31.0-31.9,adult Start:03-Sep-2018 Instruction Type:Provider Instructions for Treatment How to access health informa tion online Indication:Nonsmoker Start:26-May-2018 Instruction Type:Patient Education How to access health informa tion online - Detail Indication:Nonsmoker Start:26-May-2018 Instruction Type:Patient Education Patient Instructions Indication:Nonsmoker Start:26-May-2018 Instruction Type:Provider Instructions for Treatment How to access health informa tion online Indication:Nonsmoker Start:15-Oct-2017 Instruction Type:Patient Education How to access health informa tion online - Detail Indication:Nonsmoker Start:15-Oct-2017 Instruction Type:Patient Education Patient Instructions Indication:Nonsmoker Start:15-Oct-2017 Instruction Type:Provider Instructions for Treatment How to access health informa tion online Indication:Benign essential HTN Start:24-Sep-2017 Instruction Type:Patient Education How to access health informa tion online - Detail Indication:Benign essential HTN Start:24-Sep-2017 Instruction Type:Patient Education Patient Instructions Indication:Benign essential HTN Start:24-Sep-2017 Instruction Type:Provider Instructions for Treatment How to access health informa tion online Indication:Nonsmoker Start:10-Aug-2017 Instruction Type:Patient Education How to access health informa tion online - Detail Indication:Nonsmoker Start:10-Aug-2017 Instruction Type:Patient Education Patient Instructions Indication:Nonsmoker Start:10-Aug-2017 Instruction Type:Provider Instructions for Treatment How to access health informa tion online Indication:Body mass index 31.0-31.9, adult (Renamed from BMI 31.0-31.9,adult) Start:18-May-2017 Instruction Type:Patient Education How to access health informa tion online - Detail Indication:Body mass index 31.0-31.9, adult (Renamed from BMI 31.0-31.9,adult) Start:18-May-2017 Instruction Type:Patient Education Patient Instructions Indication:Body mass index 31.0-31.9, adult (Renamed from BMI 31.0-31.9,adult) Start:18-May-2017 Instruction Type:Provider Instructions for Treatment How to access health informa tion online Indication:Nonsmoker Start:24-Oct-2016 Instruction Type:Patient Education How to access health informa tion online - Detail Indication:Nonsmoker Start:24-Oct-2016 Instruction Type:Patient Education Patient Instructions Indication:Nonsmoker Start:24-Oct-2016 Instruction Type:Provider Instructions for Treatment How to access health informa tion online Indication:Nonsmoker Start:20-Oct-2016 Instruction Type:Patient Education How to access health informa tion online - Detail Indication:Nonsmoker Start:20-Oct-2016 Instruction Type:Patient Education Patient Instructions Indication:Nonsmoker Start:20-Oct-2016 Instruction Type:Provider Instructions for Treatment How to access health informa tion online Indication:Flu-like symptoms Start:14-Oct-2016 Instruction Type:Patient Education How to access health informa tion online - Detail Indication:Flu-like symptoms Start:14-Oct-2016 Instruction Type:Patient Education Patient Instructions Indication:Flu-like symptoms Start:14-Oct-2016 Instruction Type:Provider Instructions for Treatment How to access health informa tion online Indication:Nonsmoker Start:04-Sep-2016 Instruction Type:Patient Education How to access health informa tion online - Detail Indication:Nonsmoker Start:04-Sep-2016 Instruction Type:Patient Education Patient Instructions Indication:Nonsmoker Start:04-Sep-2016 Instruction Type:Provider Instructions for Treatment obesity counseling Indication:Benign essential HTN Start:29-Jul-2016 Instruction Type:Provider Instructions for Treatment How to access health informa tion online Indication:Benign essential HTN Start:29-Jul-2016 Instruction Type:Patient Education How to access health informa tion online - Detail Indication:Benign essential HTN Start:29-Jul-2016 Instruction Type:Patient Education Patient Instructions Indication:Benign essential HTN Start:29-Jul-2016 Instruction Type:Provider Instructions for Treatment How to access health informa tion online Indication:Phlebitis of arm Start:18-Dec-2015 Instruction Type:Patient Education How to access health informa tion online - Detail Indication:Phlebitis of arm Start:18-Dec-2015 Instruction Type:Patient Education Patient Instructions Indication:Phlebitis of arm Start:18-Dec-2015 Instruction Type:Provider Instructions for Treatment How to access health informa tion online Indication:Left arm swelling Start:17-Dec-2015 Instruction Type:Patient Education How to access health informa tion online - Detail Indication:Left arm swelling Start:17-Dec-2015 Instruction Type:Patient Education Patient Instructions Indication:Left arm swelling Start:17-Dec-2015 Instruction Type:Provider Instructions for Treatment How to access health informa tion online Indication:Lower GI bleed Start:14-Dec-2015 Instruction Type:Patient Education How to access health informa tion online - Detail Indication:Lower GI bleed Start:14-Dec-2015 Instruction Type:Patient Education instruction Indication:Lower GI bleed Start:14-Dec-2015 Instruction Type:Provider Instructions for Treatment How to access health informa tion online Indication:Vitamin D deficiency Start:26-Nov-2015 Instruction Type:Patient Education How to access health informa tion online - Detail Indication:Vitamin D deficiency Start:26-Nov-2015 Instruction Type:Patient Education Patient Instructions Indication:Vitamin D deficiency Start:26-Nov-2015 Instruction Type:Provider Instructions for Treatment How to access health informa tion online Indication:Hernia, umbilical Start:30-Aug-2015 Instruction Type:Patient Education How to access health informa tion online - Detail Indication:Hernia, umbilical Start:30-Aug-2015 Instruction Type:Patient Education Patient Instructions Indication:Hernia, umbilical Start:30-Aug-2015 Instruction Type:Provider Instructions for Treatment obesity counseling Indication:Benign essential HTN Start:29-Jun-2015 Instruction Type:Provider Instructions for Treatment How to access health informa tion online Indication:Annual Medicare Phyiscal WITHOUT abnormal findings (Renamed from Encounter for general adult medical examination without abnormal findings) Start:29-Jun-2015 Instruction Type:Patient Education How to access health informa tion online - Detail Indication:Annual Medicare Phyiscal WITHOUT abnormal findings (Renamed from Encounter for general adult medical examination without abnormal findings) Start:29-Jun-2015 Instruction Type:Patient Education Patient Instructions Indication:Annual Medicare Phyiscal WITHOUT abnormal findings (Renamed from Encounter for general adult medical examination without abnormal findings) Start:29-Jun-2015 Instruction Type:Provider Instructions for Treatment How to access health informa tion online - Detail Indication:Sinusitis Start:19-Apr-2015 Instruction Type:Patient Education Patient Instructions Indication:Sinusitis Start:19-Apr-2015 Instruction Type:Provider Instructions for Treatment How to access health informa tion online Indication:Benign essential HTN Start:04-Apr-2015 Instruction Type:Patient Education How to access health informa tion online - Detail Indication:Benign essential HTN Start:04-Apr-2015 Instruction Type:Patient Education Patient Instructions Indication:Benign essential HTN Start:04-Apr-2015 Instruction Type:Provider Instructions for Treatment How to access health informa tion online Indication:Leg swelling Start:28-Mar-2015 Instruction Type:Patient Education How to access health informa tion online - Detail Indication:Leg swelling Start:28-Mar-2015 Instruction Type:Patient Education Patient Instructions Indication:Leg swelling Start:28-Mar-2015 Instruction Type:Provider Instructions for Treatment How to access health informa tion online Indication:Leg swelling Start:12-Mar-2015 Instruction Type:Patient Education How to access health informa tion online - Detail Indication:Leg swelling Start:12-Mar-2015 Instruction Type:Patient Education Patient Instructions Indication:Leg swelling Start:12-Mar-2015 Instruction Type:Provider Instructions for Treatment Patient Instructions Indication:Knee pain, right Start:05-Feb-2015 Instruction Type:Provider Instructions for Treatment How to access health informa tion online Indication:Abnormal urine odor Start:18-Oct-2014 Instruction Type:Patient Education How to access health informa tion online - Detail Indication:Abnormal urine odor Start:18-Oct-2014 Instruction Type:Patient Education Patient Instructions-- Indication:Abnormal urine odor Start:18-Oct-2014 Instruction Type:Provider Instructions for Treatment How to access health informa tion online Indication:COPD (chronic obstructive pulmonary disease) Start:09-Jun-2014 Instruction Type:Patient Education How to access health informa tion online - Detail Indication:COPD (chronic obstructive pulmonary disease) Start:09-Jun-2014 Instruction Type:Patient Education Patient Instructions Indication:COPD (chronic obstructive pulmonary disease) Start:09-Jun-2014 Instruction Type:Provider Instructions for Treatment Patient Instructions Indication:Fibromyalgia Start:03-Jun-2013 Instruction Type:Provider Instructions for Treatment Patient Instructions Indication:Cough Start:23-Mar-2013 Instruction Type:Provider Instructions for Treatment Patient Instructions Indication:Acute sinusitis, unspecified Start:11-Nov-2012 Instruction Type:Provider Instructions for Treatment Patient Instructions Indication:Well woman exam Start:12-Jul-2012 Instruction Type:Provider Instructions for Treatment Patient Instructions Indication:Encounter for other screening for malignant neoplasm of breast Start:01-Jul-2012 Instruction Type:Provider Instructions for Treatment [facility]; [facility] Work Phone: Instructions* Name Dates Details Patient Instructions Indication:Annual Medicare Physical WITH abnormal findings (Renamed from Encounter for general adult medical examination with abnormal findings) Start:21-Mar-2022 Instruction Type:Provider Instructions for Treatment How to Access Health Informa tion Online using Patient Portal and [employer]rd [employer] Apps Indication:Annual Medicare Physical WITH abnormal findings (Renamed from Encounter for general adult medical examination with abnormal findings) Start:21-Mar-2022 Instruction Type:Patient Education Patient Instructions Indication:Non-smoker Start:24-Jan-2022 Instruction Type:Provider Instructions for Treatment How to Access Health Informa tion Online using Patient Portal and [employer] Apps Indication:Non-smoker Start:24-Jan-2022 Instruction Type:Patient Education Patient Instructions Indication:Non-smoker Start:20-Mar-2021 Instruction Type:Provider Instructions for Treatment How to Access Health Informa tion Online using Patient Portal and [employer] Apps Indication:Non-smoker Start:20-Mar-2021 Instruction Type:Patient Education How to access health informa tion online Indication:BMI 30.0-30.9,adult Start:25-Jul-2020 Instruction Type:Patient Education How to access health informa tion online - Detail Indication:BMI 30.0-30.9,adult Start:25-Jul-2020 Instruction Type:Patient Education Patient Instructions Indication:BMI 30.0-30.9,adult Start:25-Jul-2020 Instruction Type:Provider Instructions for Treatment How to access health informa tion online Indication:Non-smoker Start:05-Sep-2019 Instruction Type:Patient Education How to access health informa tion online - Detail Indication:Non-smoker Start:05-Sep-2019 Instruction Type:Patient Education Patient Instructions Indication:Non-smoker Start:05-Sep-2019 Instruction Type:Provider Instructions for Treatment How to access health informa tion online Indication:Non-smoker Start:11-Jul-2019 Instruction Type:Patient Education How to access health informa tion online - Detail Indication:Non-smoker Start:11-Jul-2019 Instruction Type:Patient Education Patient Instructions Indication:Non-smoker Start:11-Jul-2019 Instruction Type:Provider Instructions for Treatment cardiovascular counseling Indication:Benign essential HTN Start:03-Sep-2018 Instruction Type:Provider Instructions for Treatment How to access health informa tion online Indication:BMI 31.0-31.9,adult Start:03-Sep-2018 Instruction Type:Patient Education How to access health informa tion online - Detail Indication:BMI 31.0-31.9,adult Start:03-Sep-2018 Instruction Type:Patient Education Patient Instructions Indication:BMI 31.0-31.9,adult Start:03-Sep-2018 Instruction Type:Provider Instructions for Treatment How to access health informa tion online Indication:Nonsmoker Start:26-May-2018 Instruction Type:Patient Education How to access health informa tion online - Detail Indication:Nonsmoker Start:26-May-2018 Instruction Type:Patient Education Patient Instructions Indication:Nonsmoker Start:26-May-2018 Instruction Type:Provider Instructions for Treatment How to access health informa tion online Indication:Nonsmoker Start:15-Oct-2017 Instruction Type:Patient Education How to access health informa tion online - Detail Indication:Nonsmoker Start:15-Oct-2017 Instruction Type:Patient Education Patient Instructions Indication:Nonsmoker Start:15-Oct-2017 Instruction Type:Provider Instructions for Treatment How to access health informa tion online Indication:Benign essential HTN Start:24-Sep-2017 Instruction Type:Patient Education How to access health informa tion online - Detail Indication:Benign essential HTN Start:24-Sep-2017 Instruction Type:Patient Education Patient Instructions Indication:Benign essential HTN Start:24-Sep-2017 Instruction Type:Provider Instructions for Treatment How to access health informa tion online Indication:Nonsmoker Start:10-Aug-2017 Instruction Type:Patient Education How to access health informa tion online - Detail Indication:Nonsmoker Start:10-Aug-2017 Instruction Type:Patient Education Patient Instructions Indication:Nonsmoker Start:10-Aug-2017 Instruction Type:Provider Instructions for Treatment How to access health informa tion online Indication:Body mass index 31.0-31.9, adult (Renamed from BMI 31.0-31.9,adult) Start:18-May-2017 Instruction Type:Patient Education How to access health informa tion online - Detail Indication:Body mass index 31.0-31.9, adult (Renamed from BMI 31.0-31.9,adult) Start:18-May-2017 Instruction Type:Patient Education Patient Instructions Indication:Body mass index 31.0-31.9, adult (Renamed from BMI 31.0-31.9,adult) Start:18-May-2017 Instruction Type:Provider Instructions for Treatment How to access health informa tion online Indication:Nonsmoker Start:24-Oct-2016 Instruction Type:Patient Education How to access health informa tion online - Detail Indication:Nonsmoker Start:24-Oct-2016 Instruction Type:Patient Education Patient Instructions Indication:Nonsmoker Start:24-Oct-2016 Instruction Type:Provider Instructions for Treatment How to access health informa tion online Indication:Nonsmoker Start:20-Oct-2016 Instruction Type:Patient Education How to access health informa tion online - Detail Indication:Nonsmoker Start:20-Oct-2016 Instruction Type:Patient Education Patient Instructions Indication:Nonsmoker Start:20-Oct-2016 Instruction Type:Provider Instructions for Treatment How to access health informa tion online Indication:Flu-like symptoms Start:14-Oct-2016 Instruction Type:Patient Education How to access health informa tion online - Detail Indication:Flu-like symptoms Start:14-Oct-2016 Instruction Type:Patient Education Patient Instructions Indication:Flu-like symptoms Start:14-Oct-2016 Instruction Type:Provider Instructions for Treatment How to access health informa tion online Indication:Nonsmoker Start:04-Sep-2016 Instruction Type:Patient Education How to access health informa tion online - Detail Indication:Nonsmoker Start:04-Sep-2016 Instruction Type:Patient Education Patient Instructions Indication:Nonsmoker Start:04-Sep-2016 Instruction Type:Provider Instructions for Treatment obesity counseling Indication:Benign essential HTN Start:29-Jul-2016 Instruction Type:Provider Instructions for Treatment How to access health informa tion online Indication:Benign essential HTN Start:29-Jul-2016 Instruction Type:Patient Education How to access health informa tion online - Detail Indication:Benign essential HTN Start:29-Jul-2016 Instruction Type:Patient Education Patient Instructions Indication:Benign essential HTN Start:29-Jul-2016 Instruction Type:Provider Instructions for Treatment How to access health informa tion online Indication:Phlebitis of arm Start:18-Dec-2015 Instruction Type:Patient Education How to access health informa tion online - Detail Indication:Phlebitis of arm Start:18-Dec-2015 Instruction Type:Patient Education Patient Instructions Indication:Phlebitis of arm Start:18-Dec-2015 Instruction Type:Provider Instructions for Treatment How to access health informa tion online Indication:Left arm swelling Start:17-Dec-2015 Instruction Type:Patient Education How to access health informa tion online - Detail Indication:Left arm swelling Start:17-Dec-2015 Instruction Type:Patient Education Patient Instructions Indication:Left arm swelling Start:17-Dec-2015 Instruction Type:Provider Instructions for Treatment How to access health informa tion online Indication:Lower GI bleed Start:14-Dec-2015 Instruction Type:Patient Education How to access health informa tion online - Detail Indication:Lower GI bleed Start:14-Dec-2015 Instruction Type:Patient Education instruction Indication:Lower GI bleed Start:14-Dec-2015 Instruction Type:Provider Instructions for Treatment How to access health informa tion online Indication:Vitamin D deficiency Start:26-Nov-2015 Instruction Type:Patient Education How to access health informa tion online - Detail Indication:Vitamin D deficiency Start:26-Nov-2015 Instruction Type:Patient Education Patient Instructions Indication:Vitamin D deficiency Start:26-Nov-2015 Instruction Type:Provider Instructions for Treatment How to access health informa tion online Indication:Hernia, umbilical Start:30-Aug-2015 Instruction Type:Patient Education How to access health informa tion online - Detail Indication:Hernia, umbilical Start:30-Aug-2015 Instruction Type:Patient Education Patient Instructions Indication:Hernia, umbilical Start:30-Aug-2015 Instruction Type:Provider Instructions for Treatment obesity counseling Indication:Benign essential HTN Start:29-Jun-2015 Instruction Type:Provider Instructions for Treatment How to access health informa tion online Indication:Annual Medicare Phyiscal WITHOUT abnormal findings (Renamed from Encounter for general adult medical examination without abnormal findings) Start:29-Jun-2015 Instruction Type:Patient Education How to access health informa tion online - Detail Indication:Annual Medicare Phyiscal WITHOUT abnormal findings (Renamed from Encounter for general adult medical examination without abnormal findings) Start:29-Jun-2015 Instruction Type:Patient Education Patient Instructions Indication:Annual Medicare Phyiscal WITHOUT abnormal findings (Renamed from Encounter for general adult medical examination without abnormal findings) Start:29-Jun-2015 Instruction Type:Provider Instructions for Treatment How to access health informa tion online - Detail Indication:Sinusitis Start:19-Apr-2015 Instruction Type:Patient Education Patient Instructions Indication:Sinusitis Start:19-Apr-2015 Instruction Type:Provider Instructions for Treatment How to access health informa tion online Indication:Benign essential HTN Start:04-Apr-2015 Instruction Type:Patient Education How to access health informa tion online - Detail Indication:Benign essential HTN Start:04-Apr-2015 Instruction Type:Patient Education Patient Instructions Indication:Benign essential HTN Start:04-Apr-2015 Instruction Type:Provider Instructions for Treatment How to access health informa tion online Indication:Leg swelling Start:28-Mar-2015 Instruction Type:Patient Education How to access health informa tion online - Detail Indication:Leg swelling Start:28-Mar-2015 Instruction Type:Patient Education Patient Instructions Indication:Leg swelling Start:28-Mar-2015 Instruction Type:Provider Instructions for Treatment How to access health informa tion online Indication:Leg swelling Start:12-Mar-2015 Instruction Type:Patient Education How to access health informa tion online - Detail Indication:Leg swelling Start:12-Mar-2015 Instruction Type:Patient Education Patient Instructions Indication:Leg swelling Start:12-Mar-2015 Instruction Type:Provider Instructions for Treatment Patient Instructions Indication:Knee pain, right Start:05-Feb-2015 Instruction Type:Provider Instructions for Treatment How to access health informa tion online Indication:Abnormal urine odor Start:18-Oct-2014 Instruction Type:Patient Education How to access health informa tion online - Detail Indication:Abnormal urine odor Start:18-Oct-2014 Instruction Type:Patient Education Patient Instructions-- Indication:Abnormal urine odor Start:18-Oct-2014 Instruction Type:Provider Instructions for Treatment How to access health informa tion online Indication:COPD (chronic obstructive pulmonary disease) Start:09-Jun-2014 Instruction Type:Patient Education How to access health informa tion online - Detail Indication:COPD (chronic obstructive pulmonary disease) Start:09-Jun-2014 Instruction Type:Patient Education Patient Instructions Indication:COPD (chronic obstructive pulmonary disease) Start:09-Jun-2014 Instruction Type:Provider Instructions for Treatment Patient Instructions Indication:Fibromyalgia Start:03-Jun-2013 Instruction Type:Provider Instructions for Treatment Patient Instructions Indication:Cough Start:23-Mar-2013 Instruction Type:Provider Instructions for Treatment Patient Instructions Indication:Acute sinusitis, unspecified Start:11-Nov-2012 Instruction Type:Provider Instructions for Treatment Patient Instructions Indication:Well woman exam Start:12-Jul-2012 Instruction Type:Provider Instructions for Treatment Patient Instructions Indication:Encounter for other screening for malignant neoplasm of breast Start:01-Jul-2012 Instruction Type:Provider Instructions for Treatment [facility]; [facility] Work Phone: Instructions* Name Dates Details Patient Instructions Indication:Annual Medicare Physical WITH abnormal findings (Renamed from Encounter for general adult medical examination with abnormal findings) Start:21-Mar-2022 Instruction Type:Provider Instructions for Treatment How to Access Health Informa tion Online using Patient Portal and [employer] Party Apps Indication:Annual Medicare Physical WITH abnormal findings (Renamed from Encounter for general adult medical examination with abnormal findings) Start:21-Mar-2022 Instruction Type:Patient Education Patient Instructions Indication:Non-smoker Start:24-Jan-2022 Instruction Type:Provider Instructions for Treatment How to Access Health Informa tion Online using Patient Portal and [employer] Apps Indication:Non-smoker Start:24-Jan-2022 Instruction Type:Patient Education Patient Instructions Indication:Non-smoker Start:20-Mar-2021 Instruction Type:Provider Instructions for Treatment How to Access Health Informa tion Online using Patient Portal and [employer] Apps Indication:Non-smoker Start:20-Mar-2021 Instruction Type:Patient Education How to access health informa tion online Indication:BMI 30.0-30.9,adult Start:25-Jul-2020 Instruction Type:Patient Education How to access health informa tion online - Detail Indication:BMI 30.0-30.9,adult Start:25-Jul-2020 Instruction Type:Patient Education Patient Instructions Indication:BMI 30.0-30.9,adult Start:25-Jul-2020 Instruction Type:Provider Instructions for Treatment How to access health informa tion online Indication:Non-smoker Start:05-Sep-2019 Instruction Type:Patient Education How to access health informa tion online - Detail Indication:Non-smoker Start:05-Sep-2019 Instruction Type:Patient Education Patient Instructions Indication:Non-smoker Start:05-Sep-2019 Instruction Type:Provider Instructions for Treatment How to access health informa tion online Indication:Non-smoker Start:11-Jul-2019 Instruction Type:Patient Education How to access health informa tion online - Detail Indication:Non-smoker Start:11-Jul-2019 Instruction Type:Patient Education Patient Instructions Indication:Non-smoker Start:11-Jul-2019 Instruction Type:Provider Instructions for Treatment cardiovascular counseling Indication:Benign essential HTN Start:03-Sep-2018 Instruction Type:Provider Instructions for Treatment How to access health informa tion online Indication:BMI 31.0-31.9,adult Start:03-Sep-2018 Instruction Type:Patient Education How to access health informa tion online - Detail Indication:BMI 31.0-31.9,adult Start:03-Sep-2018 Instruction Type:Patient Education Patient Instructions Indication:BMI 31.0-31.9,adult Start:03-Sep-2018 Instruction Type:Provider Instructions for Treatment How to access health informa tion online Indication:Nonsmoker Start:26-May-2018 Instruction Type:Patient Education How to access health informa tion online - Detail Indication:Nonsmoker Start:26-May-2018 Instruction Type:Patient Education Patient Instructions Indication:Nonsmoker Start:26-May-2018 Instruction Type:Provider Instructions for Treatment How to access health informa tion online Indication:Nonsmoker Start:15-Oct-2017 Instruction Type:Patient Education How to access health informa tion online - Detail Indication:Nonsmoker Start:15-Oct-2017 Instruction Type:Patient Education Patient Instructions Indication:Nonsmoker Start:15-Oct-2017 Instruction Type:Provider Instructions for Treatment How to access health informa tion online Indication:Benign essential HTN Start:24-Sep-2017 Instruction Type:Patient Education How to access health informa tion online - Detail Indication:Benign essential HTN Start:24-Sep-2017 Instruction Type:Patient Education Patient Instructions Indication:Benign essential HTN Start:24-Sep-2017 Instruction Type:Provider Instructions for Treatment How to access health informa tion online Indication:Nonsmoker Start:10-Aug-2017 Instruction Type:Patient Education How to access health informa tion online - Detail Indication:Nonsmoker Start:10-Aug-2017 Instruction Type:Patient Education Patient Instructions Indication:Nonsmoker Start:10-Aug-2017 Instruction Type:Provider Instructions for Treatment How to access health informa tion online Indication:Body mass index 31.0-31.9, adult (Renamed from BMI 31.0-31.9,adult) Start:18-May-2017 Instruction Type:Patient Education How to access health informa tion online - Detail Indication:Body mass index 31.0-31.9, adult (Renamed from BMI 31.0-31.9,adult) Start:18-May-2017 Instruction Type:Patient Education Patient Instructions Indication:Body mass index 31.0-31.9, adult (Renamed from BMI 31.0-31.9,adult) Start:18-May-2017 Instruction Type:Provider Instructions for Treatment How to access health informa tion online Indication:Nonsmoker Start:24-Oct-2016 Instruction Type:Patient Education How to access health informa tion online - Detail Indication:Nonsmoker Start:24-Oct-2016 Instruction Type:Patient Education Patient Instructions Indication:Nonsmoker Start:24-Oct-2016 Instruction Type:Provider Instructions for Treatment How to access health informa tion online Indication:Nonsmoker Start:20-Oct-2016 Instruction Type:Patient Education How to access health informa tion online - Detail Indication:Nonsmoker Start:20-Oct-2016 Instruction Type:Patient Education Patient Instructions Indication:Nonsmoker Start:20-Oct-2016 Instruction Type:Provider Instructions for Treatment How to access health informa tion online Indication:Flu-like symptoms Start:14-Oct-2016 Instruction Type:Patient Education How to access health informa tion online - Detail Indication:Flu-like symptoms Start:14-Oct-2016 Instruction Type:Patient Education Patient Instructions Indication:Flu-like symptoms Start:14-Oct-2016 Instruction Type:Provider Instructions for Treatment How to access health informa tion online Indication:Nonsmoker Start:04-Sep-2016 Instruction Type:Patient Education How to access health informa tion online - Detail Indication:Nonsmoker Start:04-Sep-2016 Instruction Type:Patient Education Patient Instructions Indication:Nonsmoker Start:04-Sep-2016 Instruction Type:Provider Instructions for Treatment obesity counseling Indication:Benign essential HTN Start:29-Jul-2016 Instruction Type:Provider Instructions for Treatment How to access health informa tion online Indication:Benign essential HTN Start:29-Jul-2016 Instruction Type:Patient Education How to access health informa tion online - Detail Indication:Benign essential HTN Start:29-Jul-2016 Instruction Type:Patient Education Patient Instructions Indication:Benign essential HTN Start:29-Jul-2016 Instruction Type:Provider Instructions for Treatment How to access health informa tion online Indication:Phlebitis of arm Start:18-Dec-2015 Instruction Type:Patient Education How to access health informa tion online - Detail Indication:Phlebitis of arm Start:18-Dec-2015 Instruction Type:Patient Education Patient Instructions Indication:Phlebitis of arm Start:18-Dec-2015 Instruction Type:Provider Instructions for Treatment How to access health informa tion online Indication:Left arm swelling Start:17-Dec-2015 Instruction Type:Patient Education How to access health informa tion online - Detail Indication:Left arm swelling Start:17-Dec-2015 Instruction Type:Patient Education Patient Instructions Indication:Left arm swelling Start:17-Dec-2015 Instruction Type:Provider Instructions for Treatment How to access health informa tion online Indication:Lower GI bleed Start:14-Dec-2015 Instruction Type:Patient Education How to access health informa tion online - Detail Indication:Lower GI bleed Start:14-Dec-2015 Instruction Type:Patient Education instruction Indication:Lower GI bleed Start:14-Dec-2015 Instruction Type:Provider Instructions for Treatment How to access health informa tion online Indication:Vitamin D deficiency Start:26-Nov-2015 Instruction Type:Patient Education How to access health informa tion online - Detail Indication:Vitamin D deficiency Start:26-Nov-2015 Instruction Type:Patient Education Patient Instructions Indication:Vitamin D deficiency Start:26-Nov-2015 Instruction Type:Provider Instructions for Treatment How to access health informa tion online Indication:Hernia, umbilical Start:30-Aug-2015 Instruction Type:Patient Education How to access health informa tion online - Detail Indication:Hernia, umbilical Start:30-Aug-2015 Instruction Type:Patient Education Patient Instructions Indication:Hernia, umbilical Start:30-Aug-2015 Instruction Type:Provider Instructions for Treatment obesity counseling Indication:Benign essential HTN Start:29-Jun-2015 Instruction Type:Provider Instructions for Treatment How to access health informa tion online Indication:Annual Medicare Phyiscal WITHOUT abnormal findings (Renamed from Encounter for general adult medical examination without abnormal findings) Start:29-Jun-2015 Instruction Type:Patient Education How to access health informa tion online - Detail Indication:Annual Medicare Phyiscal WITHOUT abnormal findings (Renamed from Encounter for general adult medical examination without abnormal findings) Start:29-Jun-2015 Instruction Type:Patient Education Patient Instructions Indication:Annual Medicare Phyiscal WITHOUT abnormal findings (Renamed from Encounter for general adult medical examination without abnormal findings) Start:29-Jun-2015 Instruction Type:Provider Instructions for Treatment How to access health informa tion online - Detail Indication:Sinusitis Start:19-Apr-2015 Instruction Type:Patient Education Patient Instructions Indication:Sinusitis Start:19-Apr-2015 Instruction Type:Provider Instructions for Treatment How to access health informa tion online Indication:Benign essential HTN Start:04-Apr-2015 Instruction Type:Patient Education How to access health informa tion online - Detail Indication:Benign essential HTN Start:04-Apr-2015 Instruction Type:Patient Education Patient Instructions Indication:Benign essential HTN Start:04-Apr-2015 Instruction Type:Provider Instructions for Treatment How to access health informa tion online Indication:Leg swelling Start:28-Mar-2015 Instruction Type:Patient Education How to access health informa tion online - Detail Indication:Leg swelling Start:28-Mar-2015 Instruction Type:Patient Education Patient Instructions Indication:Leg swelling Start:28-Mar-2015 Instruction Type:Provider Instructions for Treatment How to access health informa tion online Indication:Leg swelling Start:12-Mar-2015 Instruction Type:Patient Education How to access health informa tion online - Detail Indication:Leg swelling Start:12-Mar-2015 Instruction Type:Patient Education Patient Instructions Indication:Leg swelling Start:12-Mar-2015 Instruction Type:Provider Instructions for Treatment Patient Instructions Indication:Knee pain, right Start:05-Feb-2015 Instruction Type:Provider Instructions for Treatment How to access health informa tion online Indication:Abnormal urine odor Start:18-Oct-2014 Instruction Type:Patient Education How to access health informa tion online - Detail Indication:Abnormal urine odor Start:18-Oct-2014 Instruction Type:Patient Education Patient Instructions-- Indication:Abnormal urine odor Start:18-Oct-2014 Instruction Type:Provider Instructions for Treatment How to access health informa tion online Indication:COPD (chronic obstructive pulmonary disease) Start:09-Jun-2014 Instruction Type:Patient Education How to access health informa tion online - Detail Indication:COPD (chronic obstructive pulmonary disease) Start:09-Jun-2014 Instruction Type:Patient Education Patient Instructions Indication:COPD (chronic obstructive pulmonary disease) Start:09-Jun-2014 Instruction Type:Provider Instructions for Treatment Patient Instructions Indication:Fibromyalgia Start:03-Jun-2013 Instruction Type:Provider Instructions for Treatment Patient Instructions Indication:Cough Start:23-Mar-2013 Instruction Type:Provider Instructions for Treatment Patient Instructions Indication:Acute sinusitis, unspecified Start:11-Nov-2012 Instruction Type:Provider Instructions for Treatment Patient Instructions Indication:Well woman exam Start:12-Jul-2012 Instruction Type:Provider Instructions for Treatment Patient Instructions Indication:Encounter for other screening for malignant neoplasm of breast Start:01-Jul-2012 Instruction Type:Provider Instructions for Treatment [facility]; [facility] Work Phone: Instructions* Name Dates Details Patient Instructions Indication:Annual Medicare Physical WITH abnormal findings (Renamed from Encounter for general adult medical examination with abnormal findings) Start:21-Mar-2022 Instruction Type:Provider Instructions for Treatment How to Access Health Informa tion Online using Patient Portal and [employer] Apps Indication:Annual Medicare Physical WITH abnormal findings (Renamed from Encounter for general adult medical examination with abnormal findings) Start:21-Mar-2022 Instruction Type:Patient Education Patient Instructions Indication:Non-smoker Start:24-Jan-2022 Instruction Type:Provider Instructions for Treatment How to Access Health Informa tion Online using Patient Portal and [employer] Apps Indication:Non-smoker Start:24-Jan-2022 Instruction Type:Patient Education Patient Instructions Indication:Non-smoker Start:20-Mar-2021 Instruction Type:Provider Instructions for Treatment How to Access Health Informa tion Online using Patient Portal and [employer] Apps Indication:Non-smoker Start:20-Mar-2021 Instruction Type:Patient Education How to access health informa tion online Indication:BMI 30.0-30.9,adult Start:25-Jul-2020 Instruction Type:Patient Education How to access health informa tion online - Detail Indication:BMI 30.0-30.9,adult Start:25-Jul-2020 Instruction Type:Patient Education Patient Instructions Indication:BMI 30.0-30.9,adult Start:25-Jul-2020 Instruction Type:Provider Instructions for Treatment How to access health informa tion online Indication:Non-smoker Start:05-Sep-2019 Instruction Type:Patient Education How to access health informa tion online - Detail Indication:Non-smoker Start:05-Sep-2019 Instruction Type:Patient Education Patient Instructions Indication:Non-smoker Start:05-Sep-2019 Instruction Type:Provider Instructions for Treatment How to access health informa tion online Indication:Non-smoker Start:11-Jul-2019 Instruction Type:Patient Education How to access health informa tion online - Detail Indication:Non-smoker Start:11-Jul-2019 Instruction Type:Patient Education Patient Instructions Indication:Non-smoker Start:11-Jul-2019 Instruction Type:Provider Instructions for Treatment cardiovascular counseling Indication:Benign essential HTN Start:03-Sep-2018 Instruction Type:Provider Instructions for Treatment How to access health informa tion online Indication:BMI 31.0-31.9,adult Start:03-Sep-2018 Instruction Type:Patient Education How to access health informa tion online - Detail Indication:BMI 31.0-31.9,adult Start:03-Sep-2018 Instruction Type:Patient Education Patient Instructions Indication:BMI 31.0-31.9,adult Start:03-Sep-2018 Instruction Type:Provider Instructions for Treatment How to access health informa tion online Indication:Nonsmoker Start:26-May-2018 Instruction Type:Patient Education How to access health informa tion online - Detail Indication:Nonsmoker Start:26-May-2018 Instruction Type:Patient Education Patient Instructions Indication:Nonsmoker Start:26-May-2018 Instruction Type:Provider Instructions for Treatment How to access health informa tion online Indication:Nonsmoker Start:15-Oct-2017 Instruction Type:Patient Education How to access health informa tion online - Detail Indication:Nonsmoker Start:15-Oct-2017 Instruction Type:Patient Education Patient Instructions Indication:Nonsmoker Start:15-Oct-2017 Instruction Type:Provider Instructions for Treatment How to access health informa tion online Indication:Benign essential HTN Start:24-Sep-2017 Instruction Type:Patient Education How to access health informa tion online - Detail Indication:Benign essential HTN Start:24-Sep-2017 Instruction Type:Patient Education Patient Instructions Indication:Benign essential HTN Start:24-Sep-2017 Instruction Type:Provider Instructions for Treatment How to access health informa tion online Indication:Nonsmoker Start:10-Aug-2017 Instruction Type:Patient Education How to access health informa tion online - Detail Indication:Nonsmoker Start:10-Aug-2017 Instruction Type:Patient Education Patient Instructions Indication:Nonsmoker Start:10-Aug-2017 Instruction Type:Provider Instructions for Treatment How to access health informa tion online Indication:Body mass index 31.0-31.9, adult (Renamed from BMI 31.0-31.9,adult) Start:18-May-2017 Instruction Type:Patient Education How to access health informa tion online - Detail Indication:Body mass index 31.0-31.9, adult (Renamed from BMI 31.0-31.9,adult) Start:18-May-2017 Instruction Type:Patient Education Patient Instructions Indication:Body mass index 31.0-31.9, adult (Renamed from BMI 31.0-31.9,adult) Start:18-May-2017 Instruction Type:Provider Instructions for Treatment How to access health informa tion online Indication:Nonsmoker Start:24-Oct-2016 Instruction Type:Patient Education How to access health informa tion online - Detail Indication:Nonsmoker Start:24-Oct-2016 Instruction Type:Patient Education Patient Instructions Indication:Nonsmoker Start:24-Oct-2016 Instruction Type:Provider Instructions for Treatment How to access health informa tion online Indication:Nonsmoker Start:20-Oct-2016 Instruction Type:Patient Education How to access health informa tion online - Detail Indication:Nonsmoker Start:20-Oct-2016 Instruction Type:Patient Education Patient Instructions Indication:Nonsmoker Start:20-Oct-2016 Instruction Type:Provider Instructions for Treatment How to access health informa tion online Indication:Flu-like symptoms Start:14-Oct-2016 Instruction Type:Patient Education How to access health informa tion online - Detail Indication:Flu-like symptoms Start:14-Oct-2016 Instruction Type:Patient Education Patient Instructions Indication:Flu-like symptoms Start:14-Oct-2016 Instruction Type:Provider Instructions for Treatment How to access health informa tion online Indication:Nonsmoker Start:04-Sep-2016 Instruction Type:Patient Education How to access health informa tion online - Detail Indication:Nonsmoker Start:04-Sep-2016 Instruction Type:Patient Education Patient Instructions Indication:Nonsmoker Start:04-Sep-2016 Instruction Type:Provider Instructions for Treatment obesity counseling Indication:Benign essential HTN Start:29-Jul-2016 Instruction Type:Provider Instructions for Treatment How to access health informa tion online Indication:Benign essential HTN Start:29-Jul-2016 Instruction Type:Patient Education How to access health informa tion online - Detail Indication:Benign essential HTN Start:29-Jul-2016 Instruction Type:Patient Education Patient Instructions Indication:Benign essential HTN Start:29-Jul-2016 Instruction Type:Provider Instructions for Treatment How to access health informa tion online Indication:Phlebitis of arm Start:18-Dec-2015 Instruction Type:Patient Education How to access health informa tion online - Detail Indication:Phlebitis of arm Start:18-Dec-2015 Instruction Type:Patient Education Patient Instructions Indication:Phlebitis of arm Start:18-Dec-2015 Instruction Type:Provider Instructions for Treatment How to access health informa tion online Indication:Left arm swelling Start:17-Dec-2015 Instruction Type:Patient Education How to access health informa tion online - Detail Indication:Left arm swelling Start:17-Dec-2015 Instruction Type:Patient Education Patient Instructions Indication:Left arm swelling Start:17-Dec-2015 Instruction Type:Provider Instructions for Treatment How to access health informa tion online Indication:Lower GI bleed Start:14-Dec-2015 Instruction Type:Patient Education How to access health informa tion online - Detail Indication:Lower GI bleed Start:14-Dec-2015 Instruction Type:Patient Education instruction Indication:Lower GI bleed Start:14-Dec-2015 Instruction Type:Provider Instructions for Treatment How to access health informa tion online Indication:Vitamin D deficiency Start:26-Nov-2015 Instruction Type:Patient Education How to access health informa tion online - Detail Indication:Vitamin D deficiency Start:26-Nov-2015 Instruction Type:Patient Education Patient Instructions Indication:Vitamin D deficiency Start:26-Nov-2015 Instruction Type:Provider Instructions for Treatment How to access health informa tion online Indication:Hernia, umbilical Start:30-Aug-2015 Instruction Type:Patient Education How to access health informa tion online - Detail Indication:Hernia, umbilical Start:30-Aug-2015 Instruction Type:Patient Education Patient Instructions Indication:Hernia, umbilical Start:30-Aug-2015 Instruction Type:Provider Instructions for Treatment obesity counseling Indication:Benign essential HTN Start:29-Jun-2015 Instruction Type:Provider Instructions for Treatment How to access health informa tion online Indication:Annual Medicare Phyiscal WITHOUT abnormal findings (Renamed from Encounter for general adult medical examination without abnormal findings) Start:29-Jun-2015 Instruction Type:Patient Education How to access health informa tion online - Detail Indication:Annual Medicare Phyiscal WITHOUT abnormal findings (Renamed from Encounter for general adult medical examination without abnormal findings) Start:29-Jun-2015 Instruction Type:Patient Education Patient Instructions Indication:Annual Medicare Phyiscal WITHOUT abnormal findings (Renamed from Encounter for general adult medical examination without abnormal findings) Start:29-Jun-2015 Instruction Type:Provider Instructions for Treatment How to access health informa tion online - Detail Indication:Sinusitis Start:19-Apr-2015 Instruction Type:Patient Education Patient Instructions Indication:Sinusitis Start:19-Apr-2015 Instruction Type:Provider Instructions for Treatment How to access health informa tion online Indication:Benign essential HTN Start:04-Apr-2015 Instruction Type:Patient Education How to access health informa tion online - Detail Indication:Benign essential HTN Start:04-Apr-2015 Instruction Type:Patient Education Patient Instructions Indication:Benign essential HTN Start:04-Apr-2015 Instruction Type:Provider Instructions for Treatment How to access health informa tion online Indication:Leg swelling Start:28-Mar-2015 Instruction Type:Patient Education How to access health informa tion online - Detail Indication:Leg swelling Start:28-Mar-2015 Instruction Type:Patient Education Patient Instructions Indication:Leg swelling Start:28-Mar-2015 Instruction Type:Provider Instructions for Treatment How to access health informa tion online Indication:Leg swelling Start:12-Mar-2015 Instruction Type:Patient Education How to access health informa tion online - Detail Indication:Leg swelling Start:12-Mar-2015 Instruction Type:Patient Education Patient Instructions Indication:Leg swelling Start:12-Mar-2015 Instruction Type:Provider Instructions for Treatment Patient Instructions Indication:Knee pain, right Start:05-Feb-2015 Instruction Type:Provider Instructions for Treatment How to access health informa tion online Indication:Abnormal urine odor Start:18-Oct-2014 Instruction Type:Patient Education How to access health informa tion online - Detail Indication:Abnormal urine odor Start:18-Oct-2014 Instruction Type:Patient Education Patient Instructions-- Indication:Abnormal urine odor Start:18-Oct-2014 Instruction Type:Provider Instructions for Treatment How to access health informa tion online Indication:COPD (chronic obstructive pulmonary disease) Start:09-Jun-2014 Instruction Type:Patient Education How to access health informa tion online - Detail Indication:COPD (chronic obstructive pulmonary disease) Start:09-Jun-2014 Instruction Type:Patient Education Patient Instructions Indication:COPD (chronic obstructive pulmonary disease) Start:09-Jun-2014 Instruction Type:Provider Instructions for Treatment Patient Instructions Indication:Fibromyalgia Start:03-Jun-2013 Instruction Type:Provider Instructions for Treatment Patient Instructions Indication:Cough Start:23-Mar-2013 Instruction Type:Provider Instructions for Treatment Patient Instructions Indication:Acute sinusitis, unspecified Start:11-Nov-2012 Instruction Type:Provider Instructions for Treatment Patient Instructions Indication:Well woman exam Start:12-Jul-2012 Instruction Type:Provider Instructions for Treatment Patient Instructions Indication:Encounter for other screening for malignant neoplasm of breast Start:01-Jul-2012 Instruction Type:Provider Instructions for Treatment [facility]; [facility] Work Phone: Instructions* Name Dates Details Patient Instructions Indication:Annual Medicare Physical WITH abnormal findings (Renamed from Encounter for general adult medical examination with abnormal findings) Start:21-Mar-2022 Instruction Type:Provider Instructions for Treatment How to Access Health Informa tion Online using Patient Portal and [employer] Apps Indication:Annual Medicare Physical WITH abnormal findings (Renamed from Encounter for general adult medical examination with abnormal findings) Start:21-Mar-2022 Instruction Type:Patient Education Patient Instructions Indication:Non-smoker Start:24-Jan-2022 Instruction Type:Provider Instructions for Treatment How to Access Health Informa tion Online using Patient Portal and [employer] Apps Indication:Non-smoker Start:24-Jan-2022 Instruction Type:Patient Education Patient Instructions Indication:Non-smoker Start:20-Mar-2021 Instruction Type:Provider Instructions for Treatment How to Access Health Informa tion Online using Patient Portal and [employer] Apps Indication:Non-smoker Start:20-Mar-2021 Instruction Type:Patient Education How to access health informa tion online Indication:BMI 30.0-30.9,adult Start:25-Jul-2020 Instruction Type:Patient Education How to access health informa tion online - Detail Indication:BMI 30.0-30.9,adult Start:25-Jul-2020 Instruction Type:Patient Education Patient Instructions Indication:BMI 30.0-30.9,adult Start:25-Jul-2020 Instruction Type:Provider Instructions for Treatment How to access health informa tion online Indication:Non-smoker Start:05-Sep-2019 Instruction Type:Patient Education How to access health informa tion online - Detail Indication:Non-smoker Start:05-Sep-2019 Instruction Type:Patient Education Patient Instructions Indication:Non-smoker Start:05-Sep-2019 Instruction Type:Provider Instructions for Treatment How to access health informa tion online Indication:Non-smoker Start:11-Jul-2019 Instruction Type:Patient Education How to access health informa tion online - Detail Indication:Non-smoker Start:11-Jul-2019 Instruction Type:Patient Education Patient Instructions Indication:Non-smoker Start:11-Jul-2019 Instruction Type:Provider Instructions for Treatment cardiovascular counseling Indication:Benign essential HTN Start:03-Sep-2018 Instruction Type:Provider Instructions for Treatment How to access health informa tion online Indication:BMI 31.0-31.9,adult Start:03-Sep-2018 Instruction Type:Patient Education How to access health informa tion online - Detail Indication:BMI 31.0-31.9,adult Start:03-Sep-2018 Instruction Type:Patient Education Patient Instructions Indication:BMI 31.0-31.9,adult Start:03-Sep-2018 Instruction Type:Provider Instructions for Treatment How to access health informa tion online Indication:Nonsmoker Start:26-May-2018 Instruction Type:Patient Education How to access health informa tion online - Detail Indication:Nonsmoker Start:26-May-2018 Instruction Type:Patient Education Patient Instructions Indication:Nonsmoker Start:26-May-2018 Instruction Type:Provider Instructions for Treatment How to access health informa tion online Indication:Nonsmoker Start:15-Oct-2017 Instruction Type:Patient Education How to access health informa tion online - Detail Indication:Nonsmoker Start:15-Oct-2017 Instruction Type:Patient Education Patient Instructions Indication:Nonsmoker Start:15-Oct-2017 Instruction Type:Provider Instructions for Treatment How to access health informa tion online Indication:Benign essential HTN Start:24-Sep-2017 Instruction Type:Patient Education How to access health informa tion online - Detail Indication:Benign essential HTN Start:24-Sep-2017 Instruction Type:Patient Education Patient Instructions Indication:Benign essential HTN Start:24-Sep-2017 Instruction Type:Provider Instructions for Treatment How to access health informa tion online Indication:Nonsmoker Start:10-Aug-2017 Instruction Type:Patient Education How to access health informa tion online - Detail Indication:Nonsmoker Start:10-Aug-2017 Instruction Type:Patient Education Patient Instructions Indication:Nonsmoker Start:10-Aug-2017 Instruction Type:Provider Instructions for Treatment How to access health informa tion online Indication:Body mass index 31.0-31.9, adult (Renamed from BMI 31.0-31.9,adult) Start:18-May-2017 Instruction Type:Patient Education How to access health informa tion online - Detail Indication:Body mass index 31.0-31.9, adult (Renamed from BMI 31.0-31.9,adult) Start:18-May-2017 Instruction Type:Patient Education Patient Instructions Indication:Body mass index 31.0-31.9, adult (Renamed from BMI 31.0-31.9,adult) Start:18-May-2017 Instruction Type:Provider Instructions for Treatment How to access health informa tion online Indication:Nonsmoker Start:24-Oct-2016 Instruction Type:Patient Education How to access health informa tion online - Detail Indication:Nonsmoker Start:24-Oct-2016 Instruction Type:Patient Education Patient Instructions Indication:Nonsmoker Start:24-Oct-2016 Instruction Type:Provider Instructions for Treatment How to access health informa tion online Indication:Nonsmoker Start:20-Oct-2016 Instruction Type:Patient Education How to access health informa tion online - Detail Indication:Nonsmoker Start:20-Oct-2016 Instruction Type:Patient Education Patient Instructions Indication:Nonsmoker Start:20-Oct-2016 Instruction Type:Provider Instructions for Treatment How to access health informa tion online Indication:Flu-like symptoms Start:14-Oct-2016 Instruction Type:Patient Education How to access health informa tion online - Detail Indication:Flu-like symptoms Start:14-Oct-2016 Instruction Type:Patient Education Patient Instructions Indication:Flu-like symptoms Start:14-Oct-2016 Instruction Type:Provider Instructions for Treatment How to access health informa tion online Indication:Nonsmoker Start:04-Sep-2016 Instruction Type:Patient Education How to access health informa tion online - Detail Indication:Nonsmoker Start:04-Sep-2016 Instruction Type:Patient Education Patient Instructions Indication:Nonsmoker Start:04-Sep-2016 Instruction Type:Provider Instructions for Treatment obesity counseling Indication:Benign essential HTN Start:29-Jul-2016 Instruction Type:Provider Instructions for Treatment How to access health informa tion online Indication:Benign essential HTN Start:29-Jul-2016 Instruction Type:Patient Education How to access health informa tion online - Detail Indication:Benign essential HTN Start:29-Jul-2016 Instruction Type:Patient Education Patient Instructions Indication:Benign essential HTN Start:29-Jul-2016 Instruction Type:Provider Instructions for Treatment How to access health informa tion online Indication:Phlebitis of arm Start:18-Dec-2015 Instruction Type:Patient Education How to access health informa tion online - Detail Indication:Phlebitis of arm Start:18-Dec-2015 Instruction Type:Patient Education Patient Instructions Indication:Phlebitis of arm Start:18-Dec-2015 Instruction Type:Provider Instructions for Treatment How to access health informa tion online Indication:Left arm swelling Start:17-Dec-2015 Instruction Type:Patient Education How to access health informa tion online - Detail Indication:Left arm swelling Start:17-Dec-2015 Instruction Type:Patient Education Patient Instructions Indication:Left arm swelling Start:17-Dec-2015 Instruction Type:Provider Instructions for Treatment How to access health informa tion online Indication:Lower GI bleed Start:14-Dec-2015 Instruction Type:Patient Education How to access health informa tion online - Detail Indication:Lower GI bleed Start:14-Dec-2015 Instruction Type:Patient Education instruction Indication:Lower GI bleed Start:14-Dec-2015 Instruction Type:Provider Instructions for Treatment How to access health informa tion online Indication:Vitamin D deficiency Start:26-Nov-2015 Instruction Type:Patient Education How to access health informa tion online - Detail Indication:Vitamin D deficiency Start:26-Nov-2015 Instruction Type:Patient Education Patient Instructions Indication:Vitamin D deficiency Start:26-Nov-2015 Instruction Type:Provider Instructions for Treatment How to access health informa tion online Indication:Hernia, umbilical Start:30-Aug-2015 Instruction Type:Patient Education How to access health informa tion online - Detail Indication:Hernia, umbilical Start:30-Aug-2015 Instruction Type:Patient Education Patient Instructions Indication:Hernia, umbilical Start:30-Aug-2015 Instruction Type:Provider Instructions for Treatment obesity counseling Indication:Benign essential HTN Start:29-Jun-2015 Instruction Type:Provider Instructions for Treatment How to access health informa tion online Indication:Annual Medicare Phyiscal WITHOUT abnormal findings (Renamed from Encounter for general adult medical examination without abnormal findings) Start:29-Jun-2015 Instruction Type:Patient Education How to access health informa tion online - Detail Indication:Annual Medicare Phyiscal WITHOUT abnormal findings (Renamed from Encounter for general adult medical examination without abnormal findings) Start:29-Jun-2015 Instruction Type:Patient Education Patient Instructions Indication:Annual Medicare Phyiscal WITHOUT abnormal findings (Renamed from Encounter for general adult medical examination without abnormal findings) Start:29-Jun-2015 Instruction Type:Provider Instructions for Treatment How to access health informa tion online - Detail Indication:Sinusitis Start:19-Apr-2015 Instruction Type:Patient Education Patient Instructions Indication:Sinusitis Start:19-Apr-2015 Instruction Type:Provider Instructions for Treatment How to access health informa tion online Indication:Benign essential HTN Start:04-Apr-2015 Instruction Type:Patient Education How to access health informa tion online - Detail Indication:Benign essential HTN Start:04-Apr-2015 Instruction Type:Patient Education Patient Instructions Indication:Benign essential HTN Start:04-Apr-2015 Instruction Type:Provider Instructions for Treatment How to access health informa tion online Indication:Leg swelling Start:28-Mar-2015 Instruction Type:Patient Education How to access health informa tion online - Detail Indication:Leg swelling Start:28-Mar-2015 Instruction Type:Patient Education Patient Instructions Indication:Leg swelling Start:28-Mar-2015 Instruction Type:Provider Instructions for Treatment How to access health informa tion online Indication:Leg swelling Start:12-Mar-2015 Instruction Type:Patient Education How to access health informa tion online - Detail Indication:Leg swelling Start:12-Mar-2015 Instruction Type:Patient Education Patient Instructions Indication:Leg swelling Start:12-Mar-2015 Instruction Type:Provider Instructions for Treatment Patient Instructions Indication:Knee pain, right Start:05-Feb-2015 Instruction Type:Provider Instructions for Treatment How to access health informa tion online Indication:Abnormal urine odor Start:18-Oct-2014 Instruction Type:Patient Education How to access health informa tion online - Detail Indication:Abnormal urine odor Start:18-Oct-2014 Instruction Type:Patient Education Patient Instructions-- Indication:Abnormal urine odor Start:18-Oct-2014 Instruction Type:Provider Instructions for Treatment How to access health informa tion online Indication:COPD (chronic obstructive pulmonary disease) Start:09-Jun-2014 Instruction Type:Patient Education How to access health informa tion online - Detail Indication:COPD (chronic obstructive pulmonary disease) Start:09-Jun-2014 Instruction Type:Patient Education Patient Instructions Indication:COPD (chronic obstructive pulmonary disease) Start:09-Jun-2014 Instruction Type:Provider Instructions for Treatment Patient Instructions Indication:Fibromyalgia Start:03-Jun-2013 Instruction Type:Provider Instructions for Treatment Patient Instructions Indication:Cough Start:23-Mar-2013 Instruction Type:Provider Instructions for Treatment Patient Instructions Indication:Acute sinusitis, unspecified Start:11-Nov-2012 Instruction Type:Provider Instructions for Treatment Patient Instructions Indication:Well woman exam Start:12-Jul-2012 Instruction Type:Provider Instructions for Treatment Patient Instructions Indication:Encounter for other screening for malignant neoplasm of breast Start:01-Jul-2012 Instruction Type:Provider Instructions for Treatment [facility]; [facility] Work Phone: Instructions* Name Dates Details Patient Instructions Indication:Non-smoker Start:23-Mar-2023 Instruction Type:Provider Instructions for Treatment How to Access Health Informa tion Online using Patient Portal and [employer] Apps Indication:Non-smoker Start:23-Mar-2023 Instruction Type:Patient Education Patient Instructions Indication:Annual Medicare Physical WITH abnormal findings (Renamed from Encounter for general adult medical examination with abnormal findings) Start:21-Mar-2022 Instruction Type:Provider Instructions for Treatment How to Access Health Informa tion Online using Patient Portal and [employer] Apps Indication:Annual Medicare Physical WITH abnormal findings (Renamed from Encounter for general adult medical examination with abnormal findings) Start:21-Mar-2022 Instruction Type:Patient Education Patient Instructions Indication:Non-smoker Start:24-Jan-2022 Instruction Type:Provider Instructions for Treatment How to Access Health Informa tion Online using Patient Portal and [employer] Apps Indication:Non-smoker Start:24-Jan-2022 Instruction Type:Patient Education Patient Instructions Indication:Non-smoker Start:20-Mar-2021 Instruction Type:Provider Instructions for Treatment How to Access Health Informa tion Online using Patient Portal and [employer] Apps Indication:Non-smoker Start:20-Mar-2021 Instruction Type:Patient Education How to access health informa tion online Indication:BMI 30.0-30.9,adult Start:25-Jul-2020 Instruction Type:Patient Education How to access health informa tion online - Detail Indication:BMI 30.0-30.9,adult Start:25-Jul-2020 Instruction Type:Patient Education Patient Instructions Indication:BMI 30.0-30.9,adult Start:25-Jul-2020 Instruction Type:Provider Instructions for Treatment How to access health informa tion online Indication:Non-smoker Start:05-Sep-2019 Instruction Type:Patient Education How to access health informa tion online - Detail Indication:Non-smoker Start:05-Sep-2019 Instruction Type:Patient Education Patient Instructions Indication:Non-smoker Start:05-Sep-2019 Instruction Type:Provider Instructions for Treatment How to access health informa tion online Indication:Non-smoker Start:11-Jul-2019 Instruction Type:Patient Education How to access health informa tion online - Detail Indication:Non-smoker Start:11-Jul-2019 Instruction Type:Patient Education Patient Instructions Indication:Non-smoker Start:11-Jul-2019 Instruction Type:Provider Instructions for Treatment cardiovascular counseling Indication:Benign essential HTN Start:03-Sep-2018 Instruction Type:Provider Instructions for Treatment How to access health informa tion online Indication:BMI 31.0-31.9,adult Start:03-Sep-2018 Instruction Type:Patient Education How to access health informa tion online - Detail Indication:BMI 31.0-31.9,adult Start:03-Sep-2018 Instruction Type:Patient Education Patient Instructions Indication:BMI 31.0-31.9,adult Start:03-Sep-2018 Instruction Type:Provider Instructions for Treatment How to access health informa tion online Indication:Nonsmoker Start:26-May-2018 Instruction Type:Patient Education How to access health informa tion online - Detail Indication:Nonsmoker Start:26-May-2018 Instruction Type:Patient Education Patient Instructions Indication:Nonsmoker Start:26-May-2018 Instruction Type:Provider Instructions for Treatment How to access health informa tion online Indication:Nonsmoker Start:15-Oct-2017 Instruction Type:Patient Education How to access health informa tion online - Detail Indication:Nonsmoker Start:15-Oct-2017 Instruction Type:Patient Education Patient Instructions Indication:Nonsmoker Start:15-Oct-2017 Instruction Type:Provider Instructions for Treatment How to access health informa tion online Indication:Benign essential HTN Start:24-Sep-2017 Instruction Type:Patient Education How to access health informa tion online - Detail Indication:Benign essential HTN Start:24-Sep-2017 Instruction Type:Patient Education Patient Instructions Indication:Benign essential HTN Start:24-Sep-2017 Instruction Type:Provider Instructions for Treatment How to access health informa tion online Indication:Nonsmoker Start:10-Aug-2017 Instruction Type:Patient Education How to access health informa tion online - Detail Indication:Nonsmoker Start:10-Aug-2017 Instruction Type:Patient Education Patient Instructions Indication:Nonsmoker Start:10-Aug-2017 Instruction Type:Provider Instructions for Treatment How to access health informa tion online Indication:Body mass index 31.0-31.9, adult (Renamed from BMI 31.0-31.9,adult) Start:18-May-2017 Instruction Type:Patient Education How to access health informa tion online - Detail Indication:Body mass index 31.0-31.9, adult (Renamed from BMI 31.0-31.9,adult) Start:18-May-2017 Instruction Type:Patient Education Patient Instructions Indication:Body mass index 31.0-31.9, adult (Renamed from BMI 31.0-31.9,adult) Start:18-May-2017 Instruction Type:Provider Instructions for Treatment How to access health informa tion online Indication:Nonsmoker Start:24-Oct-2016 Instruction Type:Patient Education How to access health informa tion online - Detail Indication:Nonsmoker Start:24-Oct-2016 Instruction Type:Patient Education Patient Instructions Indication:Nonsmoker Start:24-Oct-2016 Instruction Type:Provider Instructions for Treatment How to access health informa tion online Indication:Nonsmoker Start:20-Oct-2016 Instruction Type:Patient Education How to access health informa tion online - Detail Indication:Nonsmoker Start:20-Oct-2016 Instruction Type:Patient Education Patient Instructions Indication:Nonsmoker Start:20-Oct-2016 Instruction Type:Provider Instructions for Treatment How to access health informa tion online Indication:Flu-like symptoms Start:14-Oct-2016 Instruction Type:Patient Education How to access health informa tion online - Detail Indication:Flu-like symptoms Start:14-Oct-2016 Instruction Type:Patient Education Patient Instructions Indication:Flu-like symptoms Start:14-Oct-2016 Instruction Type:Provider Instructions for Treatment How to access health informa tion online Indication:Nonsmoker Start:04-Sep-2016 Instruction Type:Patient Education How to access health informa tion online - Detail Indication:Nonsmoker Start:04-Sep-2016 Instruction Type:Patient Education Patient Instructions Indication:Nonsmoker Start:04-Sep-2016 Instruction Type:Provider Instructions for Treatment obesity counseling Indication:Benign essential HTN Start:29-Jul-2016 Instruction Type:Provider Instructions for Treatment How to access health informa tion online Indication:Benign essential HTN Start:29-Jul-2016 Instruction Type:Patient Education How to access health informa tion online - Detail Indication:Benign essential HTN Start:29-Jul-2016 Instruction Type:Patient Education Patient Instructions Indication:Benign essential HTN Start:29-Jul-2016 Instruction Type:Provider Instructions for Treatment How to access health informa tion online Indication:Phlebitis of arm Start:18-Dec-2015 Instruction Type:Patient Education How to access health informa tion online - Detail Indication:Phlebitis of arm Start:18-Dec-2015 Instruction Type:Patient Education Patient Instructions Indication:Phlebitis of arm Start:18-Dec-2015 Instruction Type:Provider Instructions for Treatment How to access health informa tion online Indication:Left arm swelling Start:17-Dec-2015 Instruction Type:Patient Education How to access health informa tion online - Detail Indication:Left arm swelling Start:17-Dec-2015 Instruction Type:Patient Education Patient Instructions Indication:Left arm swelling Start:17-Dec-2015 Instruction Type:Provider Instructions for Treatment How to access health informa tion online Indication:Lower GI bleed Start:14-Dec-2015 Instruction Type:Patient Education How to access health informa tion online - Detail Indication:Lower GI bleed Start:14-Dec-2015 Instruction Type:Patient Education instruction Indication:Lower GI bleed Start:14-Dec-2015 Instruction Type:Provider Instructions for Treatment How to access health informa tion online Indication:Vitamin D deficiency Start:26-Nov-2015 Instruction Type:Patient Education How to access health informa tion online - Detail Indication:Vitamin D deficiency Start:26-Nov-2015 Instruction Type:Patient Education Patient Instructions Indication:Vitamin D deficiency Start:26-Nov-2015 Instruction Type:Provider Instructions for Treatment How to access health informa tion online Indication:Hernia, umbilical Start:30-Aug-2015 Instruction Type:Patient Education How to access health informa tion online - Detail Indication:Hernia, umbilical Start:30-Aug-2015 Instruction Type:Patient Education Patient Instructions Indication:Hernia, umbilical Start:30-Aug-2015 Instruction Type:Provider Instructions for Treatment obesity counseling Indication:Benign essential HTN Start:29-Jun-2015 Instruction Type:Provider Instructions for Treatment How to access health informa tion online Indication:Annual Medicare Phyiscal WITHOUT abnormal findings (Renamed from Encounter for general adult medical examination without abnormal findings) Start:29-Jun-2015 Instruction Type:Patient Education How to access health informa tion online - Detail Indication:Annual Medicare Phyiscal WITHOUT abnormal findings (Renamed from Encounter for general adult medical examination without abnormal findings) Start:29-Jun-2015 Instruction Type:Patient Education Patient Instructions Indication:Annual Medicare Phyiscal WITHOUT abnormal findings (Renamed from Encounter for general adult medical examination without abnormal findings) Start:29-Jun-2015 Instruction Type:Provider Instructions for Treatment How to access health informa tion online - Detail Indication:Sinusitis Start:19-Apr-2015 Instruction Type:Patient Education Patient Instructions Indication:Sinusitis Start:19-Apr-2015 Instruction Type:Provider Instructions for Treatment How to access health informa tion online Indication:Benign essential HTN Start:04-Apr-2015 Instruction Type:Patient Education How to access health informa tion online - Detail Indication:Benign essential HTN Start:04-Apr-2015 Instruction Type:Patient Education Patient Instructions Indication:Benign essential HTN Start:04-Apr-2015 Instruction Type:Provider Instructions for Treatment How to access health informa tion online Indication:Leg swelling Start:28-Mar-2015 Instruction Type:Patient Education How to access health informa tion online - Detail Indication:Leg swelling Start:28-Mar-2015 Instruction Type:Patient Education Patient Instructions Indication:Leg swelling Start:28-Mar-2015 Instruction Type:Provider Instructions for Treatment How to access health informa tion online Indication:Leg swelling Start:12-Mar-2015 Instruction Type:Patient Education How to access health informa tion online - Detail Indication:Leg swelling Start:12-Mar-2015 Instruction Type:Patient Education Patient Instructions Indication:Leg swelling Start:12-Mar-2015 Instruction Type:Provider Instructions for Treatment Patient Instructions Indication:Knee pain, right Start:05-Feb-2015 Instruction Type:Provider Instructions for Treatment How to access health informa tion online Indication:Abnormal urine odor Start:18-Oct-2014 Instruction Type:Patient Education How to access health informa tion online - Detail Indication:Abnormal urine odor Start:18-Oct-2014 Instruction Type:Patient Education Patient Instructions-- Indication:Abnormal urine odor Start:18-Oct-2014 Instruction Type:Provider Instructions for Treatment How to access health informa tion online Indication:COPD (chronic obstructive pulmonary disease) Start:09-Jun-2014 Instruction Type:Patient Education How to access health informa tion online - Detail Indication:COPD (chronic obstructive pulmonary disease) Start:09-Jun-2014 Instruction Type:Patient Education Patient Instructions Indication:COPD (chronic obstructive pulmonary disease) Start:09-Jun-2014 Instruction Type:Provider Instructions for Treatment Patient Instructions Indication:Fibromyalgia Start:03-Jun-2013 Instruction Type:Provider Instructions for Treatment Patient Instructions Indication:Cough Start:23-Mar-2013 Instruction Type:Provider Instructions for Treatment Patient Instructions Indication:Acute sinusitis, unspecified Start:11-Nov-2012 Instruction Type:Provider Instructions for Treatment Patient Instructions Indication:Well woman exam Start:12-Jul-2012 Instruction Type:Provider Instructions for Treatment Patient Instructions Indication:Encounter for other screening for malignant neoplasm of breast Start:01-Jul-2012 Instruction Type:Provider Instructions for Treatment [facility]; [facility] Work Phone: Instructions* Name Dates Details Patient Instructions Indication:Non-smoker Start:23-Apr-2023 Instruction Type:Provider Instructions for Treatment How to Access Health Informa tion Online using Patient Portal and [employer] Indication:Non-smoker Start:23-Apr-2023 Instruction Type:Patient Education Patient Instructions Indication:Non-smoker Start:23-Mar-2023 Instruction Type:Provider Instructions for Treatment How to Access Health Informa tion Online using Patient Portal and [employer] Apps Indication:Non-smoker Start:23-Mar-2023 Instruction Type:Patient Education Patient Instructions Indication:Annual Medicare Physical WITH abnormal findings (Renamed from Encounter for general adult medical examination with abnormal findings) Start:21-Mar-2022 Instruction Type:Provider Instructions for Treatment How to Access Health Informa tion Online using Patient Portal and [employer] Apps Indication:Annual Medicare Physical WITH abnormal findings (Renamed from Encounter for general adult medical examination with abnormal findings) Start:21-Mar-2022 Instruction Type:Patient Education Patient Instructions Indication:Non-smoker Start:24-Jan-2022 Instruction Type:Provider Instructions for Treatment How to Access Health Informa tion Online using Patient Portal and [employer] Apps Indication:Non-smoker Start:24-Jan-2022 Instruction Type:Patient Education Patient Instructions Indication:Non-smoker Start:20-Mar-2021 Instruction Type:Provider Instructions for Treatment How to Access Health Informa tion Online using Patient Portal and [employer] Apps Indication:Non-smoker Start:20-Mar-2021 Instruction Type:Patient Education How to access health informa tion online Indication:BMI 30.0-30.9,adult Start:25-Jul-2020 Instruction Type:Patient Education How to access health informa tion online - Detail Indication:BMI 30.0-30.9,adult Start:25-Jul-2020 Instruction Type:Patient Education Patient Instructions Indication:BMI 30.0-30.9,adult Start:25-Jul-2020 Instruction Type:Provider Instructions for Treatment How to access health informa tion online Indication:Non-smoker Start:05-Sep-2019 Instruction Type:Patient Education How to access health informa tion online - Detail Indication:Non-smoker Start:05-Sep-2019 Instruction Type:Patient Education Patient Instructions Indication:Non-smoker Start:05-Sep-2019 Instruction Type:Provider Instructions for Treatment How to access health informa tion online Indication:Non-smoker Start:11-Jul-2019 Instruction Type:Patient Education How to access health informa tion online - Detail Indication:Non-smoker Start:11-Jul-2019 Instruction Type:Patient Education Patient Instructions Indication:Non-smoker Start:11-Jul-2019 Instruction Type:Provider Instructions for Treatment cardiovascular counseling Indication:Benign essential HTN Start:03-Sep-2018 Instruction Type:Provider Instructions for Treatment How to access health informa tion online Indication:BMI 31.0-31.9,adult Start:03-Sep-2018 Instruction Type:Patient Education How to access health informa tion online - Detail Indication:BMI 31.0-31.9,adult Start:03-Sep-2018 Instruction Type:Patient Education Patient Instructions Indication:BMI 31.0-31.9,adult Start:03-Sep-2018 Instruction Type:Provider Instructions for Treatment How to access health informa tion online Indication:Nonsmoker Start:26-May-2018 Instruction Type:Patient Education How to access health informa tion online - Detail Indication:Nonsmoker Start:26-May-2018 Instruction Type:Patient Education Patient Instructions Indication:Nonsmoker Start:26-May-2018 Instruction Type:Provider Instructions for Treatment How to access health informa tion online Indication:Nonsmoker Start:15-Oct-2017 Instruction Type:Patient Education How to access health informa tion online - Detail Indication:Nonsmoker Start:15-Oct-2017 Instruction Type:Patient Education Patient Instructions Indication:Nonsmoker Start:15-Oct-2017 Instruction Type:Provider Instructions for Treatment How to access health informa tion online Indication:Benign essential HTN Start:24-Sep-2017 Instruction Type:Patient Education How to access health informa tion online - Detail Indication:Benign essential HTN Start:24-Sep-2017 Instruction Type:Patient Education Patient Instructions Indication:Benign essential HTN Start:24-Sep-2017 Instruction Type:Provider Instructions for Treatment How to access health informa tion online Indication:Nonsmoker Start:10-Aug-2017 Instruction Type:Patient Education How to access health informa tion online - Detail Indication:Nonsmoker Start:10-Aug-2017 Instruction Type:Patient Education Patient Instructions Indication:Nonsmoker Start:10-Aug-2017 Instruction Type:Provider Instructions for Treatment How to access health informa tion online Indication:Body mass index 31.0-31.9, adult (Renamed from BMI 31.0-31.9,adult) Start:18-May-2017 Instruction Type:Patient Education How to access health informa tion online - Detail Indication:Body mass index 31.0-31.9, adult (Renamed from BMI 31.0-31.9,adult) Start:18-May-2017 Instruction Type:Patient Education Patient Instructions Indication:Body mass index 31.0-31.9, adult (Renamed from BMI 31.0-31.9,adult) Start:18-May-2017 Instruction Type:Provider Instructions for Treatment How to access health informa tion online Indication:Nonsmoker Start:24-Oct-2016 Instruction Type:Patient Education How to access health informa tion online - Detail Indication:Nonsmoker Start:24-Oct-2016 Instruction Type:Patient Education Patient Instructions Indication:Nonsmoker Start:24-Oct-2016 Instruction Type:Provider Instructions for Treatment How to access health informa tion online Indication:Nonsmoker Start:20-Oct-2016 Instruction Type:Patient Education How to access health informa tion online - Detail Indication:Nonsmoker Start:20-Oct-2016 Instruction Type:Patient Education Patient Instructions Indication:Nonsmoker Start:20-Oct-2016 Instruction Type:Provider Instructions for Treatment How to access health informa tion online Indication:Flu-like symptoms Start:14-Oct-2016 Instruction Type:Patient Education How to access health informa tion online - Detail Indication:Flu-like symptoms Start:14-Oct-2016 Instruction Type:Patient Education Patient Instructions Indication:Flu-like symptoms Start:14-Oct-2016 Instruction Type:Provider Instructions for Treatment How to access health informa tion online Indication:Nonsmoker Start:04-Sep-2016 Instruction Type:Patient Education How to access health informa tion online - Detail Indication:Nonsmoker Start:04-Sep-2016 Instruction Type:Patient Education Patient Instructions Indication:Nonsmoker Start:04-Sep-2016 Instruction Type:Provider Instructions for Treatment obesity counseling Indication:Benign essential HTN Start:29-Jul-2016 Instruction Type:Provider Instructions for Treatment How to access health informa tion online Indication:Benign essential HTN Start:29-Jul-2016 Instruction Type:Patient Education How to access health informa tion online - Detail Indication:Benign essential HTN Start:29-Jul-2016 Instruction Type:Patient Education Patient Instructions Indication:Benign essential HTN Start:29-Jul-2016 Instruction Type:Provider Instructions for Treatment How to access health informa tion online Indication:Phlebitis of arm Start:18-Dec-2015 Instruction Type:Patient Education How to access health informa tion online - Detail Indication:Phlebitis of arm Start:18-Dec-2015 Instruction Type:Patient Education Patient Instructions Indication:Phlebitis of arm Start:18-Dec-2015 Instruction Type:Provider Instructions for Treatment How to access health informa tion online Indication:Left arm swelling Start:17-Dec-2015 Instruction Type:Patient Education How to access health informa tion online - Detail Indication:Left arm swelling Start:17-Dec-2015 Instruction Type:Patient Education Patient Instructions Indication:Left arm swelling Start:17-Dec-2015 Instruction Type:Provider Instructions for Treatment How to access health informa tion online Indication:Lower GI bleed Start:14-Dec-2015 Instruction Type:Patient Education How to access health informa tion online - Detail Indication:Lower GI bleed Start:14-Dec-2015 Instruction Type:Patient Education instruction Indication:Lower GI bleed Start:14-Dec-2015 Instruction Type:Provider Instructions for Treatment How to access health informa tion online Indication:Vitamin D deficiency Start:26-Nov-2015 Instruction Type:Patient Education How to access health informa tion online - Detail Indication:Vitamin D deficiency Start:26-Nov-2015 Instruction Type:Patient Education Patient Instructions Indication:Vitamin D deficiency Start:26-Nov-2015 Instruction Type:Provider Instructions for Treatment How to access health informa tion online Indication:Hernia, umbilical Start:30-Aug-2015 Instruction Type:Patient Education How to access health informa tion online - Detail Indication:Hernia, umbilical Start:30-Aug-2015 Instruction Type:Patient Education Patient Instructions Indication:Hernia, umbilical Start:30-Aug-2015 Instruction Type:Provider Instructions for Treatment obesity counseling Indication:Benign essential HTN Start:29-Jun-2015 Instruction Type:Provider Instructions for Treatment How to access health informa tion online Indication:Annual Medicare Phyiscal WITHOUT abnormal findings (Renamed from Encounter for general adult medical examination without abnormal findings) Start:29-Jun-2015 Instruction Type:Patient Education How to access health informa tion online - Detail Indication:Annual Medicare Phyiscal WITHOUT abnormal findings (Renamed from Encounter for general adult medical examination without abnormal findings) Start:29-Jun-2015 Instruction Type:Patient Education Patient Instructions Indication:Annual Medicare Phyiscal WITHOUT abnormal findings (Renamed from Encounter for general adult medical examination without abnormal findings) Start:29-Jun-2015 Instruction Type:Provider Instructions for Treatment How to access health informa tion online - Detail Indication:Sinusitis Start:19-Apr-2015 Instruction Type:Patient Education Patient Instructions Indication:Sinusitis Start:19-Apr-2015 Instruction Type:Provider Instructions for Treatment How to access health informa tion online Indication:Benign essential HTN Start:04-Apr-2015 Instruction Type:Patient Education How to access health informa tion online - Detail Indication:Benign essential HTN Start:04-Apr-2015 Instruction Type:Patient Education Patient Instructions Indication:Benign essential HTN Start:04-Apr-2015 Instruction Type:Provider Instructions for Treatment How to access health informa tion online Indication:Leg swelling Start:28-Mar-2015 Instruction Type:Patient Education How to access health informa tion online - Detail Indication:Leg swelling Start:28-Mar-2015 Instruction Type:Patient Education Patient Instructions Indication:Leg swelling Start:28-Mar-2015 Instruction Type:Provider Instructions for Treatment How to access health informa tion online Indication:Leg swelling Start:12-Mar-2015 Instruction Type:Patient Education How to access health informa tion online - Detail Indication:Leg swelling Start:12-Mar-2015 Instruction Type:Patient Education Patient Instructions Indication:Leg swelling Start:12-Mar-2015 Instruction Type:Provider Instructions for Treatment Patient Instructions Indication:Knee pain, right Start:05-Feb-2015 Instruction Type:Provider Instructions for Treatment How to access health informa tion online Indication:Abnormal urine odor Start:18-Oct-2014 Instruction Type:Patient Education How to access health informa tion online - Detail Indication:Abnormal urine odor Start:18-Oct-2014 Instruction Type:Patient Education Patient Instructions-- Indication:Abnormal urine odor Start:18-Oct-2014 Instruction Type:Provider Instructions for Treatment How to access health informa tion online Indication:COPD (chronic obstructive pulmonary disease) Start:09-Jun-2014 Instruction Type:Patient Education How to access health informa tion online - Detail Indication:COPD (chronic obstructive pulmonary disease) Start:09-Jun-2014 Instruction Type:Patient Education Patient Instructions Indication:COPD (chronic obstructive pulmonary disease) Start:09-Jun-2014 Instruction Type:Provider Instructions for Treatment Patient Instructions Indication:Fibromyalgia Start:03-Jun-2013 Instruction Type:Provider Instructions for Treatment Patient Instructions Indication:Cough Start:23-Mar-2013 Instruction Type:Provider Instructions for Treatment Patient Instructions Indication:Acute sinusitis, unspecified Start:11-Nov-2012 Instruction Type:Provider Instructions for Treatment Patient Instructions Indication:Well woman exam Start:12-Jul-2012 Instruction Type:Provider Instructions for Treatment Patient Instructions Indication:Encounter for other screening for malignant neoplasm of breast Start:01-Jul-2012 Instruction Type:Provider Instructions for Treatment [facility]; [facility] Work Phone: Instructions* Name Dates Details Patient Instructions Indication:Non-smoker Start:23-Apr-2023 Instruction Type:Provider Instructions for Treatment How to Access Health Informa tion Online using Patient Portal and [employer] Indication:Non-smoker Start:23-Apr-2023 Instruction Type:Patient Education Patient Instructions Indication:Non-smoker Start:23-Mar-2023 Instruction Type:Provider Instructions for Treatment How to Access Health Informa tion Online using Patient Portal and [employer] Indication:Non-smoker Start:23-Mar-2023 Instruction Type:Patient Education Patient Instructions Indication:Annual Medicare Physical WITH abnormal findings (Renamed from Encounter for general adult medical examination with abnormal findings) Start:21-Mar-2022 Instruction Type:Provider Instructions for Treatment How to Access Health Informa tion Online using Patient Portal and [employer] Indication:Annual Medicare Physical WITH abnormal findings (Renamed from Encounter for general adult medical examination with abnormal findings) Start:21-Mar-2022 Instruction Type:Patient Education Patient Instructions Indication:Non-smoker Start:24-Jan-2022 Instruction Type:Provider Instructions for Treatment How to Access Health Informa tion Online using Patient Portal and [employer] Apps Indication:Non-smoker Start:24-Jan-2022 Instruction Type:Patient Education Patient Instructions Indication:Non-smoker Start:20-Mar-2021 Instruction Type:Provider Instructions for Treatment How to Access Health Informa tion Online using Patient Portal and [employer] Apps Indication:Non-smoker Start:20-Mar-2021 Instruction Type:Patient Education How to access health informa tion online Indication:BMI 30.0-30.9,adult Start:25-Jul-2020 Instruction Type:Patient Education How to access health informa tion online - Detail Indication:BMI 30.0-30.9,adult Start:25-Jul-2020 Instruction Type:Patient Education Patient Instructions Indication:BMI 30.0-30.9,adult Start:25-Jul-2020 Instruction Type:Provider Instructions for Treatment How to access health informa tion online Indication:Non-smoker Start:05-Sep-2019 Instruction Type:Patient Education How to access health informa tion online - Detail Indication:Non-smoker Start:05-Sep-2019 Instruction Type:Patient Education Patient Instructions Indication:Non-smoker Start:05-Sep-2019 Instruction Type:Provider Instructions for Treatment How to access health informa tion online Indication:Non-smoker Start:11-Jul-2019 Instruction Type:Patient Education How to access health informa tion online - Detail Indication:Non-smoker Start:11-Jul-2019 Instruction Type:Patient Education Patient Instructions Indication:Non-smoker Start:11-Jul-2019 Instruction Type:Provider Instructions for Treatment cardiovascular counseling Indication:Benign essential HTN Start:03-Sep-2018 Instruction Type:Provider Instructions for Treatment How to access health informa tion online Indication:BMI 31.0-31.9,adult Start:03-Sep-2018 Instruction Type:Patient Education How to access health informa tion online - Detail Indication:BMI 31.0-31.9,adult Start:03-Sep-2018 Instruction Type:Patient Education Patient Instructions Indication:BMI 31.0-31.9,adult Start:03-Sep-2018 Instruction Type:Provider Instructions for Treatment How to access health informa tion online Indication:Nonsmoker Start:26-May-2018 Instruction Type:Patient Education How to access health informa tion online - Detail Indication:Nonsmoker Start:26-May-2018 Instruction Type:Patient Education Patient Instructions Indication:Nonsmoker Start:26-May-2018 Instruction Type:Provider Instructions for Treatment How to access health informa tion online Indication:Nonsmoker Start:15-Oct-2017 Instruction Type:Patient Education How to access health informa tion online - Detail Indication:Nonsmoker Start:15-Oct-2017 Instruction Type:Patient Education Patient Instructions Indication:Nonsmoker Start:15-Oct-2017 Instruction Type:Provider Instructions for Treatment How to access health informa tion online Indication:Benign essential HTN Start:24-Sep-2017 Instruction Type:Patient Education How to access health informa tion online - Detail Indication:Benign essential HTN Start:24-Sep-2017 Instruction Type:Patient Education Patient Instructions Indication:Benign essential HTN Start:24-Sep-2017 Instruction Type:Provider Instructions for Treatment How to access health informa tion online Indication:Nonsmoker Start:10-Aug-2017 Instruction Type:Patient Education How to access health informa tion online - Detail Indication:Nonsmoker Start:10-Aug-2017 Instruction Type:Patient Education Patient Instructions Indication:Nonsmoker Start:10-Aug-2017 Instruction Type:Provider Instructions for Treatment How to access health informa tion online Indication:Body mass index 31.0-31.9, adult (Renamed from BMI 31.0-31.9,adult) Start:18-May-2017 Instruction Type:Patient Education How to access health informa tion online - Detail Indication:Body mass index 31.0-31.9, adult (Renamed from BMI 31.0-31.9,adult) Start:18-May-2017 Instruction Type:Patient Education Patient Instructions Indication:Body mass index 31.0-31.9, adult (Renamed from BMI 31.0-31.9,adult) Start:18-May-2017 Instruction Type:Provider Instructions for Treatment How to access health informa tion online Indication:Nonsmoker Start:24-Oct-2016 Instruction Type:Patient Education How to access health informa tion online - Detail Indication:Nonsmoker Start:24-Oct-2016 Instruction Type:Patient Education Patient Instructions Indication:Nonsmoker Start:24-Oct-2016 Instruction Type:Provider Instructions for Treatment How to access health informa tion online Indication:Nonsmoker Start:20-Oct-2016 Instruction Type:Patient Education How to access health informa tion online - Detail Indication:Nonsmoker Start:20-Oct-2016 Instruction Type:Patient Education Patient Instructions Indication:Nonsmoker Start:20-Oct-2016 Instruction Type:Provider Instructions for Treatment How to access health informa tion online Indication:Flu-like symptoms Start:14-Oct-2016 Instruction Type:Patient Education How to access health informa tion online - Detail Indication:Flu-like symptoms Start:14-Oct-2016 Instruction Type:Patient Education Patient Instructions Indication:Flu-like symptoms Start:14-Oct-2016 Instruction Type:Provider Instructions for Treatment How to access health informa tion online Indication:Nonsmoker Start:04-Sep-2016 Instruction Type:Patient Education How to access health informa tion online - Detail Indication:Nonsmoker Start:04-Sep-2016 Instruction Type:Patient Education Patient Instructions Indication:Nonsmoker Start:04-Sep-2016 Instruction Type:Provider Instructions for Treatment obesity counseling Indication:Benign essential HTN Start:29-Jul-2016 Instruction Type:Provider Instructions for Treatment How to access health informa tion online Indication:Benign essential HTN Start:29-Jul-2016 Instruction Type:Patient Education How to access health informa tion online - Detail Indication:Benign essential HTN Start:29-Jul-2016 Instruction Type:Patient Education Patient Instructions Indication:Benign essential HTN Start:29-Jul-2016 Instruction Type:Provider Instructions for Treatment How to access health informa tion online Indication:Phlebitis of arm Start:18-Dec-2015 Instruction Type:Patient Education How to access health informa tion online - Detail Indication:Phlebitis of arm Start:18-Dec-2015 Instruction Type:Patient Education Patient Instructions Indication:Phlebitis of arm Start:18-Dec-2015 Instruction Type:Provider Instructions for Treatment How to access health informa tion online Indication:Left arm swelling Start:17-Dec-2015 Instruction Type:Patient Education How to access health informa tion online - Detail Indication:Left arm swelling Start:17-Dec-2015 Instruction Type:Patient Education Patient Instructions Indication:Left arm swelling Start:17-Dec-2015 Instruction Type:Provider Instructions for Treatment How to access health informa tion online Indication:Lower GI bleed Start:14-Dec-2015 Instruction Type:Patient Education How to access health informa tion online - Detail Indication:Lower GI bleed Start:14-Dec-2015 Instruction Type:Patient Education instruction Indication:Lower GI bleed Start:14-Dec-2015 Instruction Type:Provider Instructions for Treatment How to access health informa tion online Indication:Vitamin D deficiency Start:26-Nov-2015 Instruction Type:Patient Education How to access health informa tion online - Detail Indication:Vitamin D deficiency Start:26-Nov-2015 Instruction Type:Patient Education Patient Instructions Indication:Vitamin D deficiency Start:26-Nov-2015 Instruction Type:Provider Instructions for Treatment How to access health informa tion online Indication:Hernia, umbilical Start:30-Aug-2015 Instruction Type:Patient Education How to access health informa tion online - Detail Indication:Hernia, umbilical Start:30-Aug-2015 Instruction Type:Patient Education Patient Instructions Indication:Hernia, umbilical Start:30-Aug-2015 Instruction Type:Provider Instructions for Treatment obesity counseling Indication:Benign essential HTN Start:29-Jun-2015 Instruction Type:Provider Instructions for Treatment How to access health informa tion online Indication:Annual Medicare Phyiscal WITHOUT abnormal findings (Renamed from Encounter for general adult medical examination without abnormal findings) Start:29-Jun-2015 Instruction Type:Patient Education How to access health informa tion online - Detail Indication:Annual Medicare Phyiscal WITHOUT abnormal findings (Renamed from Encounter for general adult medical examination without abnormal findings) Start:29-Jun-2015 Instruction Type:Patient Education Patient Instructions Indication:Annual Medicare Phyiscal WITHOUT abnormal findings (Renamed from Encounter for general adult medical examination without abnormal findings) Start:29-Jun-2015 Instruction Type:Provider Instructions for Treatment How to access health informa tion online - Detail Indication:Sinusitis Start:19-Apr-2015 Instruction Type:Patient Education Patient Instructions Indication:Sinusitis Start:19-Apr-2015 Instruction Type:Provider Instructions for Treatment How to access health informa tion online Indication:Benign essential HTN Start:04-Apr-2015 Instruction Type:Patient Education How to access health informa tion online - Detail Indication:Benign essential HTN Start:04-Apr-2015 Instruction Type:Patient Education Patient Instructions Indication:Benign essential HTN Start:04-Apr-2015 Instruction Type:Provider Instructions for Treatment How to access health informa tion online Indication:Leg swelling Start:28-Mar-2015 Instruction Type:Patient Education How to access health informa tion online - Detail Indication:Leg swelling Start:28-Mar-2015 Instruction Type:Patient Education Patient Instructions Indication:Leg swelling Start:28-Mar-2015 Instruction Type:Provider Instructions for Treatment How to access health informa tion online Indication:Leg swelling Start:12-Mar-2015 Instruction Type:Patient Education How to access health informa tion online - Detail Indication:Leg swelling Start:12-Mar-2015 Instruction Type:Patient Education Patient Instructions Indication:Leg swelling Start:12-Mar-2015 Instruction Type:Provider Instructions for Treatment Patient Instructions Indication:Knee pain, right Start:05-Feb-2015 Instruction Type:Provider Instructions for Treatment How to access health informa tion online Indication:Abnormal urine odor Start:18-Oct-2014 Instruction Type:Patient Education How to access health informa tion online - Detail Indication:Abnormal urine odor Start:18-Oct-2014 Instruction Type:Patient Education Patient Instructions-- Indication:Abnormal urine odor Start:18-Oct-2014 Instruction Type:Provider Instructions for Treatment How to access health informa tion online Indication:COPD (chronic obstructive pulmonary disease) Start:09-Jun-2014 Instruction Type:Patient Education How to access health informa tion online - Detail Indication:COPD (chronic obstructive pulmonary disease) Start:09-Jun-2014 Instruction Type:Patient Education Patient Instructions Indication:COPD (chronic obstructive pulmonary disease) Start:09-Jun-2014 Instruction Type:Provider Instructions for Treatment Patient Instructions Indication:Fibromyalgia Start:03-Jun-2013 Instruction Type:Provider Instructions for Treatment Patient Instructions Indication:Cough Start:23-Mar-2013 Instruction Type:Provider Instructions for Treatment Patient Instructions Indication:Acute sinusitis, unspecified Start:11-Nov-2012 Instruction Type:Provider Instructions for Treatment Patient Instructions Indication:Well woman exam Start:12-Jul-2012 Instruction Type:Provider Instructions for Treatment Patient Instructions Indication:Encounter for other screening for malignant neoplasm of breast Start:01-Jul-2012 Instruction Type:Provider Instructions for Treatment [facility]; [facility] Work Phone: Instructions* Name Dates Details Patient Instructions Indication:Non-smoker Start:23-Apr-2023 Instruction Type:Provider Instructions for Treatment How to Access Health Informa tion Online using Patient Portal and [employer] Apps Indication:Non-smoker Start:23-Apr-2023 Instruction Type:Patient Education Patient Instructions Indication:Non-smoker Start:23-Mar-2023 Instruction Type:Provider Instructions for Treatment How to Access Health Informa tion Online using Patient Portal and [employer] Apps Indication:Non-smoker Start:23-Mar-2023 Instruction Type:Patient Education Patient Instructions Indication:Annual Medicare Physical WITH abnormal findings (Renamed from Encounter for general adult medical examination with abnormal findings) Start:21-Mar-2022 Instruction Type:Provider Instructions for Treatment How to Access Health Informa tion Online using Patient Portal and [employer]rd [employer] Apps Indication:Annual Medicare Physical WITH abnormal findings (Renamed from Encounter for general adult medical examination with abnormal findings) Start:21-Mar-2022 Instruction Type:Patient Education Patient Instructions Indication:Non-smoker Start:24-Jan-2022 Instruction Type:Provider Instructions for Treatment How to Access Health Informa tion Online using Patient Portal and [employer]rd [employer] Apps Indication:Non-smoker Start:24-Jan-2022 Instruction Type:Patient Education Patient Instructions Indication:Non-smoker Start:20-Mar-2021 Instruction Type:Provider Instructions for Treatment How to Access Health Informa tion Online using Patient Portal and [employer]rd [employer] Apps Indication:Non-smoker Start:20-Mar-2021 Instruction Type:Patient Education How to access health informa tion online Indication:BMI 30.0-30.9,adult Start:25-Jul-2020 Instruction Type:Patient Education How to access health informa tion online - Detail Indication:BMI 30.0-30.9,adult Start:25-Jul-2020 Instruction Type:Patient Education Patient Instructions Indication:BMI 30.0-30.9,adult Start:25-Jul-2020 Instruction Type:Provider Instructions for Treatment How to access health informa tion online Indication:Non-smoker Start:05-Sep-2019 Instruction Type:Patient Education How to access health informa tion online - Detail Indication:Non-smoker Start:05-Sep-2019 Instruction Type:Patient Education Patient Instructions Indication:Non-smoker Start:05-Sep-2019 Instruction Type:Provider Instructions for Treatment How to access health informa tion online Indication:Non-smoker Start:11-Jul-2019 Instruction Type:Patient Education How to access health informa tion online - Detail Indication:Non-smoker Start:11-Jul-2019 Instruction Type:Patient Education Patient Instructions Indication:Non-smoker Start:11-Jul-2019 Instruction Type:Provider Instructions for Treatment cardiovascular counseling Indication:Benign essential HTN Start:03-Sep-2018 Instruction Type:Provider Instructions for Treatment How to access health informa tion online Indication:BMI 31.0-31.9,adult Start:03-Sep-2018 Instruction Type:Patient Education How to access health informa tion online - Detail Indication:BMI 31.0-31.9,adult Start:03-Sep-2018 Instruction Type:Patient Education Patient Instructions Indication:BMI 31.0-31.9,adult Start:03-Sep-2018 Instruction Type:Provider Instructions for Treatment How to access health informa tion online Indication:Nonsmoker Start:26-May-2018 Instruction Type:Patient Education How to access health informa tion online - Detail Indication:Nonsmoker Start:26-May-2018 Instruction Type:Patient Education Patient Instructions Indication:Nonsmoker Start:26-May-2018 Instruction Type:Provider Instructions for Treatment How to access health informa tion online Indication:Nonsmoker Start:15-Oct-2017 Instruction Type:Patient Education How to access health informa tion online - Detail Indication:Nonsmoker Start:15-Oct-2017 Instruction Type:Patient Education Patient Instructions Indication:Nonsmoker Start:15-Oct-2017 Instruction Type:Provider Instructions for Treatment How to access health informa tion online Indication:Benign essential HTN Start:24-Sep-2017 Instruction Type:Patient Education How to access health informa tion online - Detail Indication:Benign essential HTN Start:24-Sep-2017 Instruction Type:Patient Education Patient Instructions Indication:Benign essential HTN Start:24-Sep-2017 Instruction Type:Provider Instructions for Treatment How to access health informa tion online Indication:Nonsmoker Start:10-Aug-2017 Instruction Type:Patient Education How to access health informa tion online - Detail Indication:Nonsmoker Start:10-Aug-2017 Instruction Type:Patient Education Patient Instructions Indication:Nonsmoker Start:10-Aug-2017 Instruction Type:Provider Instructions for Treatment How to access health informa tion online Indication:Body mass index 31.0-31.9, adult (Renamed from BMI 31.0-31.9,adult) Start:18-May-2017 Instruction Type:Patient Education How to access health informa tion online - Detail Indication:Body mass index 31.0-31.9, adult (Renamed from BMI 31.0-31.9,adult) Start:18-May-2017 Instruction Type:Patient Education Patient Instructions Indication:Body mass index 31.0-31.9, adult (Renamed from BMI 31.0-31.9,adult) Start:18-May-2017 Instruction Type:Provider Instructions for Treatment How to access health informa tion online Indication:Nonsmoker Start:24-Oct-2016 Instruction Type:Patient Education How to access health informa tion online - Detail Indication:Nonsmoker Start:24-Oct-2016 Instruction Type:Patient Education Patient Instructions Indication:Nonsmoker Start:24-Oct-2016 Instruction Type:Provider Instructions for Treatment How to access health informa tion online Indication:Nonsmoker Start:20-Oct-2016 Instruction Type:Patient Education How to access health informa tion online - Detail Indication:Nonsmoker Start:20-Oct-2016 Instruction Type:Patient Education Patient Instructions Indication:Nonsmoker Start:20-Oct-2016 Instruction Type:Provider Instructions for Treatment How to access health informa tion online Indication:Flu-like symptoms Start:14-Oct-2016 Instruction Type:Patient Education How to access health informa tion online - Detail Indication:Flu-like symptoms Start:14-Oct-2016 Instruction Type:Patient Education Patient Instructions Indication:Flu-like symptoms Start:14-Oct-2016 Instruction Type:Provider Instructions for Treatment How to access health informa tion online Indication:Nonsmoker Start:04-Sep-2016 Instruction Type:Patient Education How to access health informa tion online - Detail Indication:Nonsmoker Start:04-Sep-2016 Instruction Type:Patient Education Patient Instructions Indication:Nonsmoker Start:04-Sep-2016 Instruction Type:Provider Instructions for Treatment obesity counseling Indication:Benign essential HTN Start:29-Jul-2016 Instruction Type:Provider Instructions for Treatment How to access health informa tion online Indication:Benign essential HTN Start:29-Jul-2016 Instruction Type:Patient Education How to access health informa tion online - Detail Indication:Benign essential HTN Start:29-Jul-2016 Instruction Type:Patient Education Patient Instructions Indication:Benign essential HTN Start:29-Jul-2016 Instruction Type:Provider Instructions for Treatment How to access health informa tion online Indication:Phlebitis of arm Start:18-Dec-2015 Instruction Type:Patient Education How to access health informa tion online - Detail Indication:Phlebitis of arm Start:18-Dec-2015 Instruction Type:Patient Education Patient Instructions Indication:Phlebitis of arm Start:18-Dec-2015 Instruction Type:Provider Instructions for Treatment How to access health informa tion online Indication:Left arm swelling Start:17-Dec-2015 Instruction Type:Patient Education How to access health informa tion online - Detail Indication:Left arm swelling Start:17-Dec-2015 Instruction Type:Patient Education Patient Instructions Indication:Left arm swelling Start:17-Dec-2015 Instruction Type:Provider Instructions for Treatment How to access health informa tion online Indication:Lower GI bleed Start:14-Dec-2015 Instruction Type:Patient Education How to access health informa tion online - Detail Indication:Lower GI bleed Start:14-Dec-2015 Instruction Type:Patient Education instruction Indication:Lower GI bleed Start:14-Dec-2015 Instruction Type:Provider Instructions for Treatment How to access health informa tion online Indication:Vitamin D deficiency Start:26-Nov-2015 Instruction Type:Patient Education How to access health informa tion online - Detail Indication:Vitamin D deficiency Start:26-Nov-2015 Instruction Type:Patient Education Patient Instructions Indication:Vitamin D deficiency Start:26-Nov-2015 Instruction Type:Provider Instructions for Treatment How to access health informa tion online Indication:Hernia, umbilical Start:30-Aug-2015 Instruction Type:Patient Education How to access health informa tion online - Detail Indication:Hernia, umbilical Start:30-Aug-2015 Instruction Type:Patient Education Patient Instructions Indication:Hernia, umbilical Start:30-Aug-2015 Instruction Type:Provider Instructions for Treatment obesity counseling Indication:Benign essential HTN Start:29-Jun-2015 Instruction Type:Provider Instructions for Treatment How to access health informa tion online Indication:Annual Medicare Phyiscal WITHOUT abnormal findings (Renamed from Encounter for general adult medical examination without abnormal findings) Start:29-Jun-2015 Instruction Type:Patient Education How to access health informa tion online - Detail Indication:Annual Medicare Phyiscal WITHOUT abnormal findings (Renamed from Encounter for general adult medical examination without abnormal findings) Start:29-Jun-2015 Instruction Type:Patient Education Patient Instructions Indication:Annual Medicare Phyiscal WITHOUT abnormal findings (Renamed from Encounter for general adult medical examination without abnormal findings) Start:29-Jun-2015 Instruction Type:Provider Instructions for Treatment How to access health informa tion online - Detail Indication:Sinusitis Start:19-Apr-2015 Instruction Type:Patient Education Patient Instructions Indication:Sinusitis Start:19-Apr-2015 Instruction Type:Provider Instructions for Treatment How to access health informa tion online Indication:Benign essential HTN Start:04-Apr-2015 Instruction Type:Patient Education How to access health informa tion online - Detail Indication:Benign essential HTN Start:04-Apr-2015 Instruction Type:Patient Education Patient Instructions Indication:Benign essential HTN Start:04-Apr-2015 Instruction Type:Provider Instructions for Treatment How to access health informa tion online Indication:Leg swelling Start:28-Mar-2015 Instruction Type:Patient Education How to access health informa tion online - Detail Indication:Leg swelling Start:28-Mar-2015 Instruction Type:Patient Education Patient Instructions Indication:Leg swelling Start:28-Mar-2015 Instruction Type:Provider Instructions for Treatment How to access health informa tion online Indication:Leg swelling Start:12-Mar-2015 Instruction Type:Patient Education How to access health informa tion online - Detail Indication:Leg swelling Start:12-Mar-2015 Instruction Type:Patient Education Patient Instructions Indication:Leg swelling Start:12-Mar-2015 Instruction Type:Provider Instructions for Treatment Patient Instructions Indication:Knee pain, right Start:05-Feb-2015 Instruction Type:Provider Instructions for Treatment How to access health informa tion online Indication:Abnormal urine odor Start:18-Oct-2014 Instruction Type:Patient Education How to access health informa tion online - Detail Indication:Abnormal urine odor Start:18-Oct-2014 Instruction Type:Patient Education Patient Instructions-- Indication:Abnormal urine odor Start:18-Oct-2014 Instruction Type:Provider Instructions for Treatment How to access health informa tion online Indication:COPD (chronic obstructive pulmonary disease) Start:09-Jun-2014 Instruction Type:Patient Education How to access health informa tion online - Detail Indication:COPD (chronic obstructive pulmonary disease) Start:09-Jun-2014 Instruction Type:Patient Education Patient Instructions Indication:COPD (chronic obstructive pulmonary disease) Start:09-Jun-2014 Instruction Type:Provider Instructions for Treatment Patient Instructions Indication:Fibromyalgia Start:03-Jun-2013 Instruction Type:Provider Instructions for Treatment Patient Instructions Indication:Cough Start:23-Mar-2013 Instruction Type:Provider Instructions for Treatment Patient Instructions Indication:Acute sinusitis, unspecified Start:11-Nov-2012 Instruction Type:Provider Instructions for Treatment Patient Instructions Indication:Well woman exam Start:12-Jul-2012 Instruction Type:Provider Instructions for Treatment Patient Instructions Indication:Encounter for other screening for malignant neoplasm of breast Start:01-Jul-2012 Instruction Type:Provider Instructions for Treatment [facility] Work Phone: Instructions* Name Dates Details Patient Instructions Indication:Non-smoker Start:23-Apr-2023 Instruction Type:Provider Instructions for Treatment How to Access Health Informa tion Online using Patient Portal and 3rd [employer] Apps Indication:Non-smoker Start:23-Apr-2023 Instruction Type:Patient Education Patient Instructions Indication:Non-smoker Start:23-Mar-2023 Instruction Type:Provider Instructions for Treatment How to Access Health Informa tion Online using Patient Portal and 3rd [employer] Apps Indication:Non-smoker Start:23-Mar-2023 Instruction Type:Patient Education Patient Instructions Indication:Annual Medicare Physical WITH abnormal findings (Renamed from Encounter for general adult medical examination with abnormal findings) Start:21-Mar-2022 Instruction Type:Provider Instructions for Treatment How to Access Health Informa tion Online using Patient Portal and 3rd [employer] Apps Indication:Annual Medicare Physical WITH abnormal findings (Renamed from Encounter for general adult medical examination with abnormal findings) Start:21-Mar-2022 Instruction Type:Patient Education Patient Instructions Indication:Non-smoker Start:24-Jan-2022 Instruction Type:Provider Instructions for Treatment How to Access Health Informa tion Online using Patient Portal and 3rd [employer] Apps Indication:Non-smoker Start:24-Jan-2022 Instruction Type:Patient Education Patient Instructions Indication:Non-smoker Start:20-Mar-2021 Instruction Type:Provider Instructions for Treatment How to Access Health Informa tion Online using Patient Portal and 3rd [employer] Apps Indication:Non-smoker Start:20-Mar-2021 Instruction Type:Patient Education How to access health informa tion online Indication:BMI 30.0-30.9,adult Start:25-Jul-2020 Instruction Type:Patient Education How to access health informa tion online - Detail Indication:BMI 30.0-30.9,adult Start:25-Jul-2020 Instruction Type:Patient Education Patient Instructions Indication:BMI 30.0-30.9,adult Start:25-Jul-2020 Instruction Type:Provider Instructions for Treatment How to access health informa tion online Indication:Non-smoker Start:05-Sep-2019 Instruction Type:Patient Education How to access health informa tion online - Detail Indication:Non-smoker Start:05-Sep-2019 Instruction Type:Patient Education Patient Instructions Indication:Non-smoker Start:05-Sep-2019 Instruction Type:Provider Instructions for Treatment How to access health informa tion online Indication:Non-smoker Start:11-Jul-2019 Instruction Type:Patient Education How to access health informa tion online - Detail Indication:Non-smoker Start:11-Jul-2019 Instruction Type:Patient Education Patient Instructions Indication:Non-smoker Start:11-Jul-2019 Instruction Type:Provider Instructions for Treatment cardiovascular counseling Indication:Benign essential HTN Start:03-Sep-2018 Instruction Type:Provider Instructions for Treatment How to access health informa tion online Indication:BMI 31.0-31.9,adult Start:03-Sep-2018 Instruction Type:Patient Education How to access health informa tion online - Detail Indication:BMI 31.0-31.9,adult Start:03-Sep-2018 Instruction Type:Patient Education Patient Instructions Indication:BMI 31.0-31.9,adult Start:03-Sep-2018 Instruction Type:Provider Instructions for Treatment How to access health informa tion online Indication:Nonsmoker Start:26-May-2018 Instruction Type:Patient Education How to access health informa tion online - Detail Indication:Nonsmoker Start:26-May-2018 Instruction Type:Patient Education Patient Instructions Indication:Nonsmoker Start:26-May-2018 Instruction Type:Provider Instructions for Treatment How to access health informa tion online Indication:Nonsmoker Start:15-Oct-2017 Instruction Type:Patient Education How to access health informa tion online - Detail Indication:Nonsmoker Start:15-Oct-2017 Instruction Type:Patient Education Patient Instructions Indication:Nonsmoker Start:15-Oct-2017 Instruction Type:Provider Instructions for Treatment How to access health informa tion online Indication:Benign essential HTN Start:24-Sep-2017 Instruction Type:Patient Education How to access health informa tion online - Detail Indication:Benign essential HTN Start:24-Sep-2017 Instruction Type:Patient Education Patient Instructions Indication:Benign essential HTN Start:24-Sep-2017 Instruction Type:Provider Instructions for Treatment How to access health informa tion online Indication:Nonsmoker Start:10-Aug-2017 Instruction Type:Patient Education How to access health informa tion online - Detail Indication:Nonsmoker Start:10-Aug-2017 Instruction Type:Patient Education Patient Instructions Indication:Nonsmoker Start:10-Aug-2017 Instruction Type:Provider Instructions for Treatment How to access health informa tion online Indication:Body mass index 31.0-31.9, adult (Renamed from BMI 31.0-31.9,adult) Start:18-May-2017 Instruction Type:Patient Education How to access health informa tion online - Detail Indication:Body mass index 31.0-31.9, adult (Renamed from BMI 31.0-31.9,adult) Start:18-May-2017 Instruction Type:Patient Education Patient Instructions Indication:Body mass index 31.0-31.9, adult (Renamed from BMI 31.0-31.9,adult) Start:18-May-2017 Instruction Type:Provider Instructions for Treatment How to access health informa tion online Indication:Nonsmoker Start:24-Oct-2016 Instruction Type:Patient Education How to access health informa tion online - Detail Indication:Nonsmoker Start:24-Oct-2016 Instruction Type:Patient Education Patient Instructions Indication:Nonsmoker Start:24-Oct-2016 Instruction Type:Provider Instructions for Treatment How to access health informa tion online Indication:Nonsmoker Start:20-Oct-2016 Instruction Type:Patient Education How to access health informa tion online - Detail Indication:Nonsmoker Start:20-Oct-2016 Instruction Type:Patient Education Patient Instructions Indication:Nonsmoker Start:20-Oct-2016 Instruction Type:Provider Instructions for Treatment How to access health informa tion online Indication:Flu-like symptoms Start:14-Oct-2016 Instruction Type:Patient Education How to access health informa tion online - Detail Indication:Flu-like symptoms Start:14-Oct-2016 Instruction Type:Patient Education Patient Instructions Indication:Flu-like symptoms Start:14-Oct-2016 Instruction Type:Provider Instructions for Treatment How to access health informa tion online Indication:Nonsmoker Start:04-Sep-2016 Instruction Type:Patient Education How to access health informa tion online - Detail Indication:Nonsmoker Start:04-Sep-2016 Instruction Type:Patient Education Patient Instructions Indication:Nonsmoker Start:04-Sep-2016 Instruction Type:Provider Instructions for Treatment obesity counseling Indication:Benign essential HTN Start:29-Jul-2016 Instruction Type:Provider Instructions for Treatment How to access health informa tion online Indication:Benign essential HTN Start:29-Jul-2016 Instruction Type:Patient Education How to access health informa tion online - Detail Indication:Benign essential HTN Start:29-Jul-2016 Instruction Type:Patient Education Patient Instructions Indication:Benign essential HTN Start:29-Jul-2016 Instruction Type:Provider Instructions for Treatment How to access health informa tion online Indication:Phlebitis of arm Start:18-Dec-2015 Instruction Type:Patient Education How to access health informa tion online - Detail Indication:Phlebitis of arm Start:18-Dec-2015 Instruction Type:Patient Education Patient Instructions Indication:Phlebitis of arm Start:18-Dec-2015 Instruction Type:Provider Instructions for Treatment How to access health informa tion online Indication:Left arm swelling Start:17-Dec-2015 Instruction Type:Patient Education How to access health informa tion online - Detail Indication:Left arm swelling Start:17-Dec-2015 Instruction Type:Patient Education Patient Instructions Indication:Left arm swelling Start:17-Dec-2015 Instruction Type:Provider Instructions for Treatment How to access health informa tion online Indication:Lower GI bleed Start:14-Dec-2015 Instruction Type:Patient Education How to access health informa tion online - Detail Indication:Lower GI bleed Start:14-Dec-2015 Instruction Type:Patient Education instruction Indication:Lower GI bleed Start:14-Dec-2015 Instruction Type:Provider Instructions for Treatment How to access health informa tion online Indication:Vitamin D deficiency Start:26-Nov-2015 Instruction Type:Patient Education How to access health informa tion online - Detail Indication:Vitamin D deficiency Start:26-Nov-2015 Instruction Type:Patient Education Patient Instructions Indication:Vitamin D deficiency Start:26-Nov-2015 Instruction Type:Provider Instructions for Treatment How to access health informa tion online Indication:Hernia, umbilical Start:30-Aug-2015 Instruction Type:Patient Education How to access health informa tion online - Detail Indication:Hernia, umbilical Start:30-Aug-2015 Instruction Type:Patient Education Patient Instructions Indication:Hernia, umbilical Start:30-Aug-2015 Instruction Type:Provider Instructions for Treatment obesity counseling Indication:Benign essential HTN Start:29-Jun-2015 Instruction Type:Provider Instructions for Treatment How to access health informa tion online Indication:Annual Medicare Phyiscal WITHOUT abnormal findings (Renamed from Encounter for general adult medical examination without abnormal findings) Start:29-Jun-2015 Instruction Type:Patient Education How to access health informa tion online - Detail Indication:Annual Medicare Phyiscal WITHOUT abnormal findings (Renamed from Encounter for general adult medical examination without abnormal findings) Start:29-Jun-2015 Instruction Type:Patient Education Patient Instructions Indication:Annual Medicare Phyiscal WITHOUT abnormal findings (Renamed from Encounter for general adult medical examination without abnormal findings) Start:29-Jun-2015 Instruction Type:Provider Instructions for Treatment How to access health informa tion online - Detail Indication:Sinusitis Start:19-Apr-2015 Instruction Type:Patient Education Patient Instructions Indication:Sinusitis Start:19-Apr-2015 Instruction Type:Provider Instructions for Treatment How to access health informa tion online Indication:Benign essential HTN Start:04-Apr-2015 Instruction Type:Patient Education How to access health informa tion online - Detail Indication:Benign essential HTN Start:04-Apr-2015 Instruction Type:Patient Education Patient Instructions Indication:Benign essential HTN Start:04-Apr-2015 Instruction Type:Provider Instructions for Treatment How to access health informa tion online Indication:Leg swelling Start:28-Mar-2015 Instruction Type:Patient Education How to access health informa tion online - Detail Indication:Leg swelling Start:28-Mar-2015 Instruction Type:Patient Education Patient Instructions Indication:Leg swelling Start:28-Mar-2015 Instruction Type:Provider Instructions for Treatment How to access health informa tion online Indication:Leg swelling Start:12-Mar-2015 Instruction Type:Patient Education How to access health informa tion online - Detail Indication:Leg swelling Start:12-Mar-2015 Instruction Type:Patient Education Patient Instructions Indication:Leg swelling Start:12-Mar-2015 Instruction Type:Provider Instructions for Treatment Patient Instructions Indication:Knee pain, right Start:05-Feb-2015 Instruction Type:Provider Instructions for Treatment How to access health informa tion online Indication:Abnormal urine odor Start:18-Oct-2014 Instruction Type:Patient Education How to access health informa tion online - Detail Indication:Abnormal urine odor Start:18-Oct-2014 Instruction Type:Patient Education Patient Instructions-- Indication:Abnormal urine odor Start:18-Oct-2014 Instruction Type:Provider Instructions for Treatment How to access health informa tion online Indication:COPD (chronic obstructive pulmonary disease) Start:09-Jun-2014 Instruction Type:Patient Education How to access health informa tion online - Detail Indication:COPD (chronic obstructive pulmonary disease) Start:09-Jun-2014 Instruction Type:Patient Education Patient Instructions Indication:COPD (chronic obstructive pulmonary disease) Start:09-Jun-2014 Instruction Type:Provider Instructions for Treatment Patient Instructions Indication:Fibromyalgia Start:03-Jun-2013 Instruction Type:Provider Instructions for Treatment Patient Instructions Indication:Cough Start:23-Mar-2013 Instruction Type:Provider Instructions for Treatment Patient Instructions Indication:Acute sinusitis, unspecified Start:11-Nov-2012 Instruction Type:Provider Instructions for Treatment Patient Instructions Indication:Well woman exam Start:12-Jul-2012 Instruction Type:Provider Instructions for Treatment Patient Instructions Indication:Encounter for other screening for malignant neoplasm of breast Start:01-Jul-2012 Instruction Type:Provider Instructions for Treatment [facility]; [facility] Work Phone: Family History Unknown Family Member Name Dates Details Alcohol Abuse Status:Active Cancer Status:Active Diabetes Mellitus Status:Active Father Comments:ETOH Status:Active Mother Comments:Cancer Status:Active Sister 1 Comments:Diabetes Status:Active Unknown Family Member Name Dates Details Alcohol Abuse Status:Active Cancer Status:Active Diabetes Mellitus Status:Active Father Comments:ETOH Status:Active Mother Comments:Cancer Status:Active Sister 1 Comments:Diabetes Status:Active Unknown Family Member Name Dates Details Alcohol Abuse Status:Active Cancer Status:Active Diabetes Mellitus Status:Active Father Comments:ETOH Status:Active Mother Comments:Cancer Status:Active Sister 1 Comments:Diabetes Status:Active Unknown Family Member Name Dates Details Alcohol Abuse Status:Active Cancer Status:Active Diabetes Mellitus Status:Active Father Comments:ETOH Status:Active Mother Comments:Cancer Status:Active Sister 1 Comments:Diabetes Status:Active Unknown Family Member Name Dates Details Alcohol Abuse Status:Active Cancer Status:Active Diabetes Mellitus Status:Active Father Comments:ETOH Status:Active Mother Comments:Cancer Status:Active Sister 1 Comments:Diabetes Status:Active Unknown Family Member Name Dates Details Alcohol Abuse Status:Active Cancer Status:Active Diabetes Mellitus Status:Active Father Comments:ETOH Status:Active Mother Comments:Cancer Status:Active Sister 1 Comments:Diabetes Status:Active Unknown Family Member Name Dates Details Alcohol Abuse Status:Active Cancer Status:Active Diabetes Mellitus Status:Active Father Comments:ETOH Status:Active Mother Comments:Cancer Status:Active Sister 1 Comments:Diabetes Status:Active Unknown Family Member Name Dates Details Alcohol Abuse Status:Active Cancer Status:Active Diabetes Mellitus Status:Active Father Comments:ETOH Status:Active Mother Comments:Cancer Status:Active Sister 1 Comments:Diabetes Status:Active Unknown Family Member Name Dates Details Alcohol Abuse Status:Active Cancer Status:Active Diabetes Mellitus Status:Active Father Comments:ETOH Status:Active Mother Comments:Cancer Status:Active Sister 1 Comments:Diabetes Status:Active Unknown Family Member Name Dates Details Alcohol Abuse Status:Active Cancer Status:Active Diabetes Mellitus Status:Active Father Comments:ETOH Status:Active Mother Comments:Cancer Status:Active Sister 1 Comments:Diabetes Status:Active Unknown Family Member Name Dates Details Alcohol Abuse Status:Active Cancer Status:Active Diabetes Mellitus Status:Active Father Comments:ETOH Status:Active Mother Comments:Cancer Status:Active Sister 1 Comments:Diabetes Status:Active Unknown Family Member Name Dates Details Alcohol Abuse Status:Active Cancer Status:Active Diabetes Mellitus Status:Active Father Comments:ETOH Status:Active Mother Comments:Cancer Status:Active Sister 1 Comments:Diabetes Status:Active Unknown Family Member Name Dates Details Alcohol Abuse Status:Active Cancer Status:Active Diabetes Mellitus Status:Active Father Comments:ETOH Status:Active Mother Comments:Cancer Status:Active Sister 1 Comments:Diabetes Status:Active Unknown Family Member Name Dates Details Alcohol Abuse Status:Active Cancer Status:Active Diabetes Mellitus Status:Active Father Comments:ETOH Status:Active Mother Comments:Cancer Status:Active Sister 1 Comments:Diabetes Status:Active Unknown Family Member Name Dates Details Alcohol Abuse Status:Active Cancer Status:Active Diabetes Mellitus Status:Active Father Comments:ETOH Status:Active Mother Comments:Cancer Status:Active Sister 1 Comments:Diabetes Status:Active Unknown Family Member Name Dates Details Alcohol Abuse Status:Active Cancer Status:Active Diabetes Mellitus Status:Active Father Comments:ETOH Status:Active Mother Comments:Cancer Status:Active Sister 1 Comments:Diabetes Status:Active Unknown Family Member Name Dates Details Alcohol Abuse Status:Active Cancer Status:Active Diabetes Mellitus Status:Active Father Comments:ETOH Status:Active Mother Comments:Cancer Status:Active Sister 1 Comments:Diabetes Status:Active Unknown Family Member Name Dates Details Alcohol Abuse Status:Active Cancer Status:Active Diabetes Mellitus Status:Active Father Comments:ETOH Status:Active Mother Comments:Cancer Status:Active Sister 1 Comments:Diabetes Status:Active Unknown Family Member Name Dates Details Alcohol Abuse Status:Active Cancer Status:Active Diabetes Mellitus Status:Active Father Comments:ETOH Status:Active Mother Comments:Cancer Status:Active Sister 1 Comments:Diabetes Status:Active Unknown Family Member Name Dates Details Alcohol Abuse Status:Active Cancer Status:Active Diabetes Mellitus Status:Active Father Comments:ETOH Status:Active Mother Comments:Cancer Status:Active Sister 1 Comments:Diabetes Status:Active Unknown Family Member Name Dates Details Alcohol Abuse Status:Active Cancer Status:Active Diabetes Mellitus Status:Active Father Comments:ETOH Status:Active Mother Comments:Cancer Status:Active Sister 1 Comments:Diabetes Status:Active Unknown Family Member Name Dates Details Alcohol Abuse Status:Active Cancer Status:Active Diabetes Mellitus Status:Active Father Comments:ETOH Status:Active Mother Comments:Cancer Status:Active Sister 1 Comments:Diabetes Status:Active Unknown Family Member Name Dates Details Alcohol Abuse Status:Active Cancer Status:Active Diabetes Mellitus Status:Active Father Comments:ETOH Status:Active Mother Comments:Cancer Status:Active Sister 1 Comments:Diabetes Status:Active Unknown Family Member Name Dates Details Alcohol Abuse Status:Active Cancer Status:Active Diabetes Mellitus Status:Active Father Comments:ETOH Status:Active Mother Comments:Cancer Status:Active Sister 1 Comments:Diabetes Status:Active Unknown Family Member Name Dates Details Alcohol Abuse Status:Active Cancer Status:Active Diabetes Mellitus Status:Active Father Comments:ETOH Status:Active Mother Comments:Cancer Status:Active Sister 1 Comments:Diabetes Status:Active Unknown Family Member Name Dates Details Alcohol Abuse Status:Active Cancer Status:Active Diabetes Mellitus Status:Active Father Comments:ETOH Status:Active Mother Comments:Cancer Status:Active Sister 1 Comments:Diabetes Status:Active Unknown Family Member Name Dates Details Alcohol Abuse Status:Active Cancer Status:Active Diabetes Mellitus Status:Active Father Comments:ETOH Status:Active Mother Comments:Cancer Status:Active Sister 1 Comments:Diabetes Status:Active Unknown Family Member Name Dates Details Alcohol Abuse Status:Active Cancer Status:Active Diabetes Mellitus Status:Active Father Comments:ETOH Status:Active Mother Comments:Cancer Status:Active Sister 1 Comments:Diabetes Status:Active Instructions Name Dates Details Benign essential HTN : cardi ovascular counseling Indication:Benign essential HTN BMI 31.0-31.9,adult : How to access health information online Indication:BMI 31.0-31.9,adult BMI 31.0-31.9,adult : How to access health information online - Detail Indication:BMI 31.0-31.9,adult BMI 31.0-31.9,adult : Patien t Instructions Indication:BMI 31.0-31.9,adult Nonsmoker : How to access he alth information online Indication:Nonsmoker Nonsmoker : How to access he alth information online - Detail Indication:Nonsmoker Nonsmoker : Patient Instruct ions Indication:Nonsmoker Benign essential HTN : How t o access health information online Indication:Benign essential HTN Benign essential HTN : How t o access health information online - Detail Indication:Benign essential HTN Benign essential HTN : Patie nt Instructions Indication:Benign essential HTN Body mass index 31.0-31.9, a dult (Renamed from BMI 31.0-31.9,adult) : How to access health information online Indication:Body mass index 31.0-31.9, adult (Renamed from BMI 31.0-31.9,adult) Body mass index 31.0-31.9, a dult (Renamed from BMI 31.0-31.9,adult) : How to access health information online - Detail Indication:Body mass index 31.0-31.9, adult (Renamed from BMI 31.0-31.9,adult) Body mass index 31.0-31.9, a dult (Renamed from BMI 31.0-31.9,adult) : Patient Instructions Indication:Body mass index 31.0-31.9, adult (Renamed from BMI 31.0-31.9,adult) Flu-like symptoms : How to a ccess health information online Indication:Flu-like symptoms Flu-like symptoms : How to a ccess health information online - Detail Indication:Flu-like symptoms Flu-like symptoms : Patient Instructions Indication:Flu-like symptoms Benign essential HTN : obesi ty counseling Indication:Benign essential HTN Phlebitis of arm : How to ac cess health information online Indication:Phlebitis of arm Phlebitis of arm : How to ac cess health information online - Detail Indication:Phlebitis of arm Phlebitis of arm : Patient I nstructions Indication:Phlebitis of arm Left arm swelling : How to a ccess health information online Indication:Left arm swelling Left arm swelling : How to a ccess health information online - Detail Indication:Left arm swelling Left arm swelling : Patient Instructions Indication:Left arm swelling Lower GI bleed : How to acce ss health information online Indication:Lower GI bleed Lower GI bleed : How to acce ss health information online - Detail Indication:Lower GI bleed Lower GI bleed : instruction Indication:Lower GI bleed Vitamin D deficiency : How t o access health information online Indication:Vitamin D deficiency Vitamin D deficiency : How t o access health information online - Detail Indication:Vitamin D deficiency Vitamin D deficiency : Patie nt Instructions Indication:Vitamin D deficiency Hernia, umbilical : How to a ccess health information online Indication:Hernia, umbilical Hernia, umbilical : How to a ccess health information online - Detail Indication:Hernia, umbilical Hernia, umbilical : Patient Instructions Indication:Hernia, umbilical Annual Medicare Phyiscal WIT HOUT abnormal findings (Renamed from Encounter for general adult medical examination without abnormal findings) : How to access health information online Indication:Annual Medicare Phyiscal WITHOUT abnormal findings (Renamed from Encounter for general adult medical examination without abnormal findings) Annual Medicare Phyiscal WIT HOUT abnormal findings (Renamed from Encounter for general adult medical examination without abnormal findings) : How to access health information online - Detail Indication:Annual Medicare Phyiscal WITHOUT abnormal findings (Renamed from Encounter for general adult medical examination without abnormal findings) Annual Medicare Phyiscal WIT HOUT abnormal findings (Renamed from Encounter for general adult medical examination without abnormal findings) : Patient Instructions Indication:Annual Medicare Phyiscal WITHOUT abnormal findings (Renamed from Encounter for general adult medical examination without abnormal findings) Sinusitis : How to access he alth information online - Detail Indication:Sinusitis Sinusitis : Patient Instruct ions Indication:Sinusitis Leg swelling : How to access health information online Indication:Leg swelling Leg swelling : How to access health information online - Detail Indication:Leg swelling Leg swelling : Patient Instr uctions Indication:Leg swelling Knee pain, right : Patient I nstructions Indication:Knee pain, right Abnormal urine odor : How to access health information online Indication:Abnormal urine odor Abnormal urine odor : How to access health information online - Detail Indication:Abnormal urine odor Abnormal urine odor : Patien t Instructions-- Indication:Abnormal urine odor COPD (chronic obstructive pu lmonary disease) : How to access health information online Indication:COPD (chronic obstructive pulmonary disease) COPD (chronic obstructive pu lmonary disease) : How to access health information online - Detail Indication:COPD (chronic obstructive pulmonary disease) COPD (chronic obstructive pu lmonary disease) : Patient Instructions Indication:COPD (chronic obstructive pulmonary disease) Fibromyalgia : Patient Instr uctions Indication:Fibromyalgia Cough : Patient Instructions Indication:Cough Acute sinusitis, unspecified : Patient Instructions Indication:Acute sinusitis, unspecified Well woman exam : Patient In structions Indication:Well woman exam Encounter for other screenin g for malignant neoplasm of breast : Patient Instructions Indication:Encounter for other screening for malignant neoplasm of breast Name Dates Details Benign essential HTN : cardi ovascular counseling Indication:Benign essential HTN BMI 31.0-31.9,adult : How to access health information online Indication:BMI 31.0-31.9,adult BMI 31.0-31.9,adult : How to access health information online - Detail Indication:BMI 31.0-31.9,adult BMI 31.0-31.9,adult : Patien t Instructions Indication:BMI 31.0-31.9,adult Nonsmoker : How to access he alth information online Indication:Nonsmoker Nonsmoker : How to access he alth information online - Detail Indication:Nonsmoker Nonsmoker : Patient Instruct ions Indication:Nonsmoker Benign essential HTN : How t o access health information online Indication:Benign essential HTN Benign essential HTN : How t o access health information online - Detail Indication:Benign essential HTN Benign essential HTN : Patie nt Instructions Indication:Benign essential HTN Body mass index 31.0-31.9, a dult (Renamed from BMI 31.0-31.9,adult) : How to access health information online Indication:Body mass index 31.0-31.9, adult (Renamed from BMI 31.0-31.9,adult) Body mass index 31.0-31.9, a dult (Renamed from BMI 31.0-31.9,adult) : How to access health information online - Detail Indication:Body mass index 31.0-31.9, adult (Renamed from BMI 31.0-31.9,adult) Body mass index 31.0-31.9, a dult (Renamed from BMI 31.0-31.9,adult) : Patient Instructions Indication:Body mass index 31.0-31.9, adult (Renamed from BMI 31.0-31.9,adult) Flu-like symptoms : How to a ccess health information online Indication:Flu-like symptoms Flu-like symptoms : How to a ccess health information online - Detail Indication:Flu-like symptoms Flu-like symptoms : Patient Instructions Indication:Flu-like symptoms Benign essential HTN : obesi ty counseling Indication:Benign essential HTN Phlebitis of arm : How to ac cess health information online Indication:Phlebitis of arm Phlebitis of arm : How to ac cess health information online - Detail Indication:Phlebitis of arm Phlebitis of arm : Patient I nstructions Indication:Phlebitis of arm Left arm swelling : How to a ccess health information online Indication:Left arm swelling Left arm swelling : How to a ccess health information online - Detail Indication:Left arm swelling Left arm swelling : Patient Instructions Indication:Left arm swelling Lower GI bleed : How to acce ss health information online Indication:Lower GI bleed Lower GI bleed : How to acce ss health information online - Detail Indication:Lower GI bleed Lower GI bleed : instruction Indication:Lower GI bleed Vitamin D deficiency : How t o access health information online Indication:Vitamin D deficiency Vitamin D deficiency : How t o access health information online - Detail Indication:Vitamin D deficiency Vitamin D deficiency : Patie nt Instructions Indication:Vitamin D deficiency Hernia, umbilical : How to a ccess health information online Indication:Hernia, umbilical Hernia, umbilical : How to a ccess health information online - Detail Indication:Hernia, umbilical Hernia, umbilical : Patient Instructions Indication:Hernia, umbilical Annual Medicare Phyiscal WIT HOUT abnormal findings (Renamed from Encounter for general adult medical examination without abnormal findings) : How to access health information online Indication:Annual Medicare Phyiscal WITHOUT abnormal findings (Renamed from Encounter for general adult medical examination without abnormal findings) Annual Medicare Phyiscal WIT HOUT abnormal findings (Renamed from Encounter for general adult medical examination without abnormal findings) : How to access health information online - Detail Indication:Annual Medicare Phyiscal WITHOUT abnormal findings (Renamed from Encounter for general adult medical examination without abnormal findings) Annual Medicare Phyiscal WIT HOUT abnormal findings (Renamed from Encounter for general adult medical examination without abnormal findings) : Patient Instructions Indication:Annual Medicare Phyiscal WITHOUT abnormal findings (Renamed from Encounter for general adult medical examination without abnormal findings) Sinusitis : How to access alth information online - Detail Indication:Sinusitis Sinusitis : Patient Instruct ions Indication:Sinusitis Leg swelling : How to access health information online Indication:Leg swelling Leg swelling : How to access health information online - Detail Indication:Leg swelling Leg swelling : Patient Instr uctions Indication:Leg swelling Knee pain, right : Patient I nstructions Indication:Knee pain, right Abnormal urine odor : How to access health information online Indication:Abnormal urine odor Abnormal urine odor : How to access health information online - Detail Indication:Abnormal urine odor Abnormal urine odor : Patien t Instructions-- Indication:Abnormal urine odor COPD (chronic obstructive pu lmonary disease) : How to access health information online Indication:COPD (chronic obstructive pulmonary disease) COPD (chronic obstructive pu lmonary disease) : How to access health information online - Detail Indication:COPD (chronic obstructive pulmonary disease) COPD (chronic obstructive pu lmonary disease) : Patient Instructions Indication:COPD (chronic obstructive pulmonary disease) Fibromyalgia : Patient Instr uctions Indication:Fibromyalgia Cough : Patient Instructions Indication:Cough Acute sinusitis, unspecified : Patient Instructions Indication:Acute sinusitis, unspecified Well woman exam : Patient In structions Indication:Well woman exam Encounter for other screenin g for malignant neoplasm of breast : Patient Instructions Indication:Encounter for other screening for malignant neoplasm of breast Name Dates Details cardiovascular counseling Indication:Benign essential HTN Start:03-Sep-2018 Instruction Type:Provider Instructions for Treatment How to access health informa tion online Indication:BMI 31.0-31.9,adult Start:03-Sep-2018 Instruction Type:Patient Education How to access health informa tion online - Detail Indication:BMI 31.0-31.9,adult Start:03-Sep-2018 Instruction Type:Patient Education Patient Instructions Indication:BMI 31.0-31.9,adult Start:03-Sep-2018 Instruction Type:Provider Instructions for Treatment How to access health informa tion online Indication:Nonsmoker Start:26-May-2018 Instruction Type:Patient Education How to access health informa tion online - Detail Indication:Nonsmoker Start:26-May-2018 Instruction Type:Patient Education Patient Instructions Indication:Nonsmoker Start:26-May-2018 Instruction Type:Provider Instructions for Treatment How to access health informa tion online Indication:Nonsmoker Start:15-Oct-2017 Instruction Type:Patient Education How to access health informa tion online - Detail Indication:Nonsmoker Start:15-Oct-2017 Instruction Type:Patient Education Patient Instructions Indication:Nonsmoker Start:15-Oct-2017 Instruction Type:Provider Instructions for Treatment How to access health informa tion online Indication:Benign essential HTN Start:24-Sep-2017 Instruction Type:Patient Education How to access health informa tion online - Detail Indication:Benign essential HTN Start:24-Sep-2017 Instruction Type:Patient Education Patient Instructions Indication:Benign essential HTN Start:24-Sep-2017 Instruction Type:Provider Instructions for Treatment How to access health informa tion online Indication:Nonsmoker Start:10-Aug-2017 Instruction Type:Patient Education How to access health informa tion online - Detail Indication:Nonsmoker Start:10-Aug-2017 Instruction Type:Patient Education Patient Instructions Indication:Nonsmoker Start:10-Aug-2017 Instruction Type:Provider Instructions for Treatment How to access health informa tion online Indication:Body mass index 31.0-31.9, adult (Renamed from BMI 31.0-31.9,adult) Start:18-May-2017 Instruction Type:Patient Education How to access health informa tion online - Detail Indication:Body mass index 31.0-31.9, adult (Renamed from BMI 31.0-31.9,adult) Start:18-May-2017 Instruction Type:Patient Education Patient Instructions Indication:Body mass index 31.0-31.9, adult (Renamed from BMI 31.0-31.9,adult) Start:18-May-2017 Instruction Type:Provider Instructions for Treatment How to access health informa tion online Indication:Nonsmoker Start:24-Oct-2016 Instruction Type:Patient Education How to access health informa tion online - Detail Indication:Nonsmoker Start:24-Oct-2016 Instruction Type:Patient Education Patient Instructions Indication:Nonsmoker Start:24-Oct-2016 Instruction Type:Provider Instructions for Treatment How to access health informa tion online Indication:Nonsmoker Start:20-Oct-2016 Instruction Type:Patient Education How to access health informa tion online - Detail Indication:Nonsmoker Start:20-Oct-2016 Instruction Type:Patient Education Patient Instructions Indication:Nonsmoker Start:20-Oct-2016 Instruction Type:Provider Instructions for Treatment How to access health informa tion online Indication:Flu-like symptoms Start:14-Oct-2016 Instruction Type:Patient Education How to access health informa tion online - Detail Indication:Flu-like symptoms Start:14-Oct-2016 Instruction Type:Patient Education Patient Instructions Indication:Flu-like symptoms Start:14-Oct-2016 Instruction Type:Provider Instructions for Treatment How to access health informa tion online Indication:Nonsmoker Start:04-Sep-2016 Instruction Type:Patient Education How to access health informa tion online - Detail Indication:Nonsmoker Start:04-Sep-2016 Instruction Type:Patient Education Patient Instructions Indication:Nonsmoker Start:04-Sep-2016 Instruction Type:Provider Instructions for Treatment obesity counseling Indication:Benign essential HTN Start:29-Jul-2016 Instruction Type:Provider Instructions for Treatment How to access health informa tion online Indication:Benign essential HTN Start:29-Jul-2016 Instruction Type:Patient Education How to access health informa tion online - Detail Indication:Benign essential HTN Start:29-Jul-2016 Instruction Type:Patient Education Patient Instructions Indication:Benign essential HTN Start:29-Jul-2016 Instruction Type:Provider Instructions for Treatment How to access health informa tion online Indication:Phlebitis of arm Start:18-Dec-2015 Instruction Type:Patient Education How to access health informa tion online - Detail Indication:Phlebitis of arm Start:18-Dec-2015 Instruction Type:Patient Education Patient Instructions Indication:Phlebitis of arm Start:18-Dec-2015 Instruction Type:Provider Instructions for Treatment How to access health informa tion online Indication:Left arm swelling Start:17-Dec-2015 Instruction Type:Patient Education How to access health informa tion online - Detail Indication:Left arm swelling Start:17-Dec-2015 Instruction Type:Patient Education Patient Instructions Indication:Left arm swelling Start:17-Dec-2015 Instruction Type:Provider Instructions for Treatment How to access health informa tion online Indication:Lower GI bleed Start:14-Dec-2015 Instruction Type:Patient Education How to access health informa tion online - Detail Indication:Lower GI bleed Start:14-Dec-2015 Instruction Type:Patient Education instruction Indication:Lower GI bleed Start:14-Dec-2015 Instruction Type:Provider Instructions for Treatment How to access health informa tion online Indication:Vitamin D deficiency Start:26-Nov-2015 Instruction Type:Patient Education How to access health informa tion online - Detail Indication:Vitamin D deficiency Start:26-Nov-2015 Instruction Type:Patient Education Patient Instructions Indication:Vitamin D deficiency Start:26-Nov-2015 Instruction Type:Provider Instructions for Treatment How to access health informa tion online Indication:Hernia, umbilical Start:30-Aug-2015 Instruction Type:Patient Education How to access health informa tion online - Detail Indication:Hernia, umbilical Start:30-Aug-2015 Instruction Type:Patient Education Patient Instructions Indication:Hernia, umbilical Start:30-Aug-2015 Instruction Type:Provider Instructions for Treatment obesity counseling Indication:Benign essential HTN Start:29-Jun-2015 Instruction Type:Provider Instructions for Treatment How to access health informa tion online Indication:Annual Medicare Phyiscal WITHOUT abnormal findings (Renamed from Encounter for general adult medical examination without abnormal findings) Start:29-Jun-2015 Instruction Type:Patient Education How to access health informa tion online - Detail Indication:Annual Medicare Phyiscal WITHOUT abnormal findings (Renamed from Encounter for general adult medical examination without abnormal findings) Start:29-Jun-2015 Instruction Type:Patient Education Patient Instructions Indication:Annual Medicare Phyiscal WITHOUT abnormal findings (Renamed from Encounter for general adult medical examination without abnormal findings) Start:29-Jun-2015 Instruction Type:Provider Instructions for Treatment How to access health informa tion online - Detail Indication:Sinusitis Start:19-Apr-2015 Instruction Type:Patient Education Patient Instructions Indication:Sinusitis Start:19-Apr-2015 Instruction Type:Provider Instructions for Treatment How to access health informa tion online Indication:Benign essential HTN Start:04-Apr-2015 Instruction Type:Patient Education How to access health informa tion online - Detail Indication:Benign essential HTN Start:04-Apr-2015 Instruction Type:Patient Education Patient Instructions Indication:Benign essential HTN Start:04-Apr-2015 Instruction Type:Provider Instructions for Treatment How to access health informa tion online Indication:Leg swelling Start:28-Mar-2015 Instruction Type:Patient Education How to access health informa tion online - Detail Indication:Leg swelling Start:28-Mar-2015 Instruction Type:Patient Education Patient Instructions Indication:Leg swelling Start:28-Mar-2015 Instruction Type:Provider Instructions for Treatment How to access health informa tion online Indication:Leg swelling Start:12-Mar-2015 Instruction Type:Patient Education How to access health informa tion online - Detail Indication:Leg swelling Start:12-Mar-2015 Instruction Type:Patient Education Patient Instructions Indication:Leg swelling Start:12-Mar-2015 Instruction Type:Provider Instructions for Treatment Patient Instructions Indication:Knee pain, right Start:05-Feb-2015 Instruction Type:Provider Instructions for Treatment How to access health informa tion online Indication:Abnormal urine odor Start:18-Oct-2014 Instruction Type:Patient Education How to access health informa tion online - Detail Indication:Abnormal urine odor Start:18-Oct-2014 Instruction Type:Patient Education Patient Instructions-- Indication:Abnormal urine odor Start:18-Oct-2014 Instruction Type:Provider Instructions for Treatment How to access health informa tion online Indication:COPD (chronic obstructive pulmonary disease) Start:09-Jun-2014 Instruction Type:Patient Education How to access health informa tion online - Detail Indication:COPD (chronic obstructive pulmonary disease) Start:09-Jun-2014 Instruction Type:Patient Education Patient Instructions Indication:COPD (chronic obstructive pulmonary disease) Start:09-Jun-2014 Instruction Type:Provider Instructions for Treatment Patient Instructions Indication:Fibromyalgia Start:03-Jun-2013 Instruction Type:Provider Instructions for Treatment Patient Instructions Indication:Cough Start:23-Mar-2013 Instruction Type:Provider Instructions for Treatment Patient Instructions Indication:Acute sinusitis, unspecified Start:11-Nov-2012 Instruction Type:Provider Instructions for Treatment Patient Instructions Indication:Well woman exam Start:12-Jul-2012 Instruction Type:Provider Instructions for Treatment Patient Instructions Indication:Encounter for other screening for malignant neoplasm of breast Start:01-Jul-2012 Instruction Type:Provider Instructions for Treatment Name Dates Details How to access health informa tion online Indication:Non-smoker Start:11-Jul-2019 Instruction Type:Patient Education How to access health informa tion online - Detail Indication:Non-smoker Start:11-Jul-2019 Instruction Type:Patient Education Patient Instructions Indication:Non-smoker Start:11-Jul-2019 Instruction Type:Provider Instructions for Treatment cardiovascular counseling Indication:Benign essential HTN Start:03-Sep-2018 Instruction Type:Provider Instructions for Treatment How to access health informa tion online Indication:BMI 31.0-31.9,adult Start:03-Sep-2018 Instruction Type:Patient Education How to access health informa tion online - Detail Indication:BMI 31.0-31.9,adult Start:03-Sep-2018 Instruction Type:Patient Education Patient Instructions Indication:BMI 31.0-31.9,adult Start:03-Sep-2018 Instruction Type:Provider Instructions for Treatment How to access health informa tion online Indication:Nonsmoker Start:26-May-2018 Instruction Type:Patient Education How to access health informa tion online - Detail Indication:Nonsmoker Start:26-May-2018 Instruction Type:Patient Education Patient Instructions Indication:Nonsmoker Start:26-May-2018 Instruction Type:Provider Instructions for Treatment How to access health informa tion online Indication:Nonsmoker Start:15-Oct-2017 Instruction Type:Patient Education How to access health informa tion online - Detail Indication:Nonsmoker Start:15-Oct-2017 Instruction Type:Patient Education Patient Instructions Indication:Nonsmoker Start:15-Oct-2017 Instruction Type:Provider Instructions for Treatment How to access health informa tion online Indication:Benign essential HTN Start:24-Sep-2017 Instruction Type:Patient Education How to access health informa tion online - Detail Indication:Benign essential HTN Start:24-Sep-2017 Instruction Type:Patient Education Patient Instructions Indication:Benign essential HTN Start:24-Sep-2017 Instruction Type:Provider Instructions for Treatment How to access health informa tion online Indication:Nonsmoker Start:10-Aug-2017 Instruction Type:Patient Education How to access health informa tion online - Detail Indication:Nonsmoker Start:10-Aug-2017 Instruction Type:Patient Education Patient Instructions Indication:Nonsmoker Start:10-Aug-2017 Instruction Type:Provider Instructions for Treatment How to access health informa tion online Indication:Body mass index 31.0-31.9, adult (Renamed from BMI 31.0-31.9,adult) Start:18-May-2017 Instruction Type:Patient Education How to access health informa tion online - Detail Indication:Body mass index 31.0-31.9, adult (Renamed from BMI 31.0-31.9,adult) Start:18-May-2017 Instruction Type:Patient Education Patient Instructions Indication:Body mass index 31.0-31.9, adult (Renamed from BMI 31.0-31.9,adult) Start:18-May-2017 Instruction Type:Provider Instructions for Treatment How to access health informa tion online Indication:Nonsmoker Start:24-Oct-2016 Instruction Type:Patient Education How to access health informa tion online - Detail Indication:Nonsmoker Start:24-Oct-2016 Instruction Type:Patient Education Patient Instructions Indication:Nonsmoker Start:24-Oct-2016 Instruction Type:Provider Instructions for Treatment How to access health informa tion online Indication:Nonsmoker Start:20-Oct-2016 Instruction Type:Patient Education How to access health informa tion online - Detail Indication:Nonsmoker Start:20-Oct-2016 Instruction Type:Patient Education Patient Instructions Indication:Nonsmoker Start:20-Oct-2016 Instruction Type:Provider Instructions for Treatment How to access health informa tion online Indication:Flu-like symptoms Start:14-Oct-2016 Instruction Type:Patient Education How to access health informa tion online - Detail Indication:Flu-like symptoms Start:14-Oct-2016 Instruction Type:Patient Education Patient Instructions Indication:Flu-like symptoms Start:14-Oct-2016 Instruction Type:Provider Instructions for Treatment How to access health informa tion online Indication:Nonsmoker Start:04-Sep-2016 Instruction Type:Patient Education How to access health informa tion online - Detail Indication:Nonsmoker Start:04-Sep-2016 Instruction Type:Patient Education Patient Instructions Indication:Nonsmoker Start:04-Sep-2016 Instruction Type:Provider Instructions for Treatment obesity counseling Indication:Benign essential HTN Start:29-Jul-2016 Instruction Type:Provider Instructions for Treatment How to access health informa tion online Indication:Benign essential HTN Start:29-Jul-2016 Instruction Type:Patient Education How to access health informa tion online - Detail Indication:Benign essential HTN Start:29-Jul-2016 Instruction Type:Patient Education Patient Instructions Indication:Benign essential HTN Start:29-Jul-2016 Instruction Type:Provider Instructions for Treatment How to access health informa tion online Indication:Phlebitis of arm Start:18-Dec-2015 Instruction Type:Patient Education How to access health informa tion online - Detail Indication:Phlebitis of arm Start:18-Dec-2015 Instruction Type:Patient Education Patient Instructions Indication:Phlebitis of arm Start:18-Dec-2015 Instruction Type:Provider Instructions for Treatment How to access health informa tion online Indication:Left arm swelling Start:17-Dec-2015 Instruction Type:Patient Education How to access health informa tion online - Detail Indication:Left arm swelling Start:17-Dec-2015 Instruction Type:Patient Education Patient Instructions Indication:Left arm swelling Start:17-Dec-2015 Instruction Type:Provider Instructions for Treatment How to access health informa tion online Indication:Lower GI bleed Start:14-Dec-2015 Instruction Type:Patient Education How to access health informa tion online - Detail Indication:Lower GI bleed Start:14-Dec-2015 Instruction Type:Patient Education instruction Indication:Lower GI bleed Start:14-Dec-2015 Instruction Type:Provider Instructions for Treatment How to access health informa tion online Indication:Vitamin D deficiency Start:26-Nov-2015 Instruction Type:Patient Education How to access health informa tion online - Detail Indication:Vitamin D deficiency Start:26-Nov-2015 Instruction Type:Patient Education Patient Instructions Indication:Vitamin D deficiency Start:26-Nov-2015 Instruction Type:Provider Instructions for Treatment How to access health informa tion online Indication:Hernia, umbilical Start:30-Aug-2015 Instruction Type:Patient Education How to access health informa tion online - Detail Indication:Hernia, umbilical Start:30-Aug-2015 Instruction Type:Patient Education Patient Instructions Indication:Hernia, umbilical Start:30-Aug-2015 Instruction Type:Provider Instructions for Treatment obesity counseling Indication:Benign essential HTN Start:29-Jun-2015 Instruction Type:Provider Instructions for Treatment How to access health informa tion online Indication:Annual Medicare Phyiscal WITHOUT abnormal findings (Renamed from Encounter for general adult medical examination without abnormal findings) Start:29-Jun-2015 Instruction Type:Patient Education How to access health informa tion online - Detail Indication:Annual Medicare Phyiscal WITHOUT abnormal findings (Renamed from Encounter for general adult medical examination without abnormal findings) Start:29-Jun-2015 Instruction Type:Patient Education Patient Instructions Indication:Annual Medicare Phyiscal WITHOUT abnormal findings (Renamed from Encounter for general adult medical examination without abnormal findings) Start:29-Jun-2015 Instruction Type:Provider Instructions for Treatment How to access health informa tion online - Detail Indication:Sinusitis Start:19-Apr-2015 Instruction Type:Patient Education Patient Instructions Indication:Sinusitis Start:19-Apr-2015 Instruction Type:Provider Instructions for Treatment How to access health informa tion online Indication:Benign essential HTN Start:04-Apr-2015 Instruction Type:Patient Education How to access health informa tion online - Detail Indication:Benign essential HTN Start:04-Apr-2015 Instruction Type:Patient Education Patient Instructions Indication:Benign essential HTN Start:04-Apr-2015 Instruction Type:Provider Instructions for Treatment How to access health informa tion online Indication:Leg swelling Start:28-Mar-2015 Instruction Type:Patient Education How to access health informa tion online - Detail Indication:Leg swelling Start:28-Mar-2015 Instruction Type:Patient Education Patient Instructions Indication:Leg swelling Start:28-Mar-2015 Instruction Type:Provider Instructions for Treatment How to access health informa tion online Indication:Leg swelling Start:12-Mar-2015 Instruction Type:Patient Education How to access health informa tion online - Detail Indication:Leg swelling Start:12-Mar-2015 Instruction Type:Patient Education Patient Instructions Indication:Leg swelling Start:12-Mar-2015 Instruction Type:Provider Instructions for Treatment Patient Instructions Indication:Knee pain, right Start:05-Feb-2015 Instruction Type:Provider Instructions for Treatment How to access health informa tion online Indication:Abnormal urine odor Start:18-Oct-2014 Instruction Type:Patient Education How to access health informa tion online - Detail Indication:Abnormal urine odor Start:18-Oct-2014 Instruction Type:Patient Education Patient Instructions-- Indication:Abnormal urine odor Start:18-Oct-2014 Instruction Type:Provider Instructions for Treatment How to access health informa tion online Indication:COPD (chronic obstructive pulmonary disease) Start:09-Jun-2014 Instruction Type:Patient Education How to access health informa tion online - Detail Indication:COPD (chronic obstructive pulmonary disease) Start:09-Jun-2014 Instruction Type:Patient Education Patient Instructions Indication:COPD (chronic obstructive pulmonary disease) Start:09-Jun-2014 Instruction Type:Provider Instructions for Treatment Patient Instructions Indication:Fibromyalgia Start:03-Jun-2013 Instruction Type:Provider Instructions for Treatment Patient Instructions Indication:Cough Start:23-Mar-2013 Instruction Type:Provider Instructions for Treatment Patient Instructions Indication:Acute sinusitis, unspecified Start:11-Nov-2012 Instruction Type:Provider Instructions for Treatment Patient Instructions Indication:Well woman exam Start:12-Jul-2012 Instruction Type:Provider Instructions for Treatment Patient Instructions Indication:Encounter for other screening for malignant neoplasm of breast Start:01-Jul-2012 Instruction Type:Provider Instructions for Treatment Name Dates Details How to access health informa tion online Indication:Non-smoker Start:11-Jul-2019 Instruction Type:Patient Education How to access health informa tion online - Detail Indication:Non-smoker Start:11-Jul-2019 Instruction Type:Patient Education Patient Instructions Indication:Non-smoker Start:11-Jul-2019 Instruction Type:Provider Instructions for Treatment cardiovascular counseling Indication:Benign essential HTN Start:03-Sep-2018 Instruction Type:Provider Instructions for Treatment How to access health informa tion online Indication:BMI 31.0-31.9,adult Start:03-Sep-2018 Instruction Type:Patient Education How to access health informa tion online - Detail Indication:BMI 31.0-31.9,adult Start:03-Sep-2018 Instruction Type:Patient Education Patient Instructions Indication:BMI 31.0-31.9,adult Start:03-Sep-2018 Instruction Type:Provider Instructions for Treatment How to access health informa tion online Indication:Nonsmoker Start:26-May-2018 Instruction Type:Patient Education How to access health informa tion online - Detail Indication:Nonsmoker Start:26-May-2018 Instruction Type:Patient Education Patient Instructions Indication:Nonsmoker Start:26-May-2018 Instruction Type:Provider Instructions for Treatment How to access health informa tion online Indication:Nonsmoker Start:15-Oct-2017 Instruction Type:Patient Education How to access health informa tion online - Detail Indication:Nonsmoker Start:15-Oct-2017 Instruction Type:Patient Education Patient Instructions Indication:Nonsmoker Start:15-Oct-2017 Instruction Type:Provider Instructions for Treatment How to access health informa tion online Indication:Benign essential HTN Start:24-Sep-2017 Instruction Type:Patient Education How to access health informa tion online - Detail Indication:Benign essential HTN Start:24-Sep-2017 Instruction Type:Patient Education Patient Instructions Indication:Benign essential HTN Start:24-Sep-2017 Instruction Type:Provider Instructions for Treatment How to access health informa tion online Indication:Nonsmoker Start:10-Aug-2017 Instruction Type:Patient Education How to access health informa tion online - Detail Indication:Nonsmoker Start:10-Aug-2017 Instruction Type:Patient Education Patient Instructions Indication:Nonsmoker Start:10-Aug-2017 Instruction Type:Provider Instructions for Treatment How to access health informa tion online Indication:Body mass index 31.0-31.9, adult (Renamed from BMI 31.0-31.9,adult) Start:18-May-2017 Instruction Type:Patient Education How to access health informa tion online - Detail Indication:Body mass index 31.0-31.9, adult (Renamed from BMI 31.0-31.9,adult) Start:18-May-2017 Instruction Type:Patient Education Patient Instructions Indication:Body mass index 31.0-31.9, adult (Renamed from BMI 31.0-31.9,adult) Start:18-May-2017 Instruction Type:Provider Instructions for Treatment How to access health informa tion online Indication:Nonsmoker Start:24-Oct-2016 Instruction Type:Patient Education How to access health informa tion online - Detail Indication:Nonsmoker Start:24-Oct-2016 Instruction Type:Patient Education Patient Instructions Indication:Nonsmoker Start:24-Oct-2016 Instruction Type:Provider Instructions for Treatment How to access health informa tion online Indication:Nonsmoker Start:20-Oct-2016 Instruction Type:Patient Education How to access health informa tion online - Detail Indication:Nonsmoker Start:20-Oct-2016 Instruction Type:Patient Education Patient Instructions Indication:Nonsmoker Start:20-Oct-2016 Instruction Type:Provider Instructions for Treatment How to access health informa tion online Indication:Flu-like symptoms Start:14-Oct-2016 Instruction Type:Patient Education How to access health informa tion online - Detail Indication:Flu-like symptoms Start:14-Oct-2016 Instruction Type:Patient Education Patient Instructions Indication:Flu-like symptoms Start:14-Oct-2016 Instruction Type:Provider Instructions for Treatment How to access health informa tion online Indication:Nonsmoker Start:04-Sep-2016 Instruction Type:Patient Education How to access health informa tion online - Detail Indication:Nonsmoker Start:04-Sep-2016 Instruction Type:Patient Education Patient Instructions Indication:Nonsmoker Start:04-Sep-2016 Instruction Type:Provider Instructions for Treatment obesity counseling Indication:Benign essential HTN Start:29-Jul-2016 Instruction Type:Provider Instructions for Treatment How to access health informa tion online Indication:Benign essential HTN Start:29-Jul-2016 Instruction Type:Patient Education How to access health informa tion online - Detail Indication:Benign essential HTN Start:29-Jul-2016 Instruction Type:Patient Education Patient Instructions Indication:Benign essential HTN Start:29-Jul-2016 Instruction Type:Provider Instructions for Treatment How to access health informa tion online Indication:Phlebitis of arm Start:18-Dec-2015 Instruction Type:Patient Education How to access health informa tion online - Detail Indication:Phlebitis of arm Start:18-Dec-2015 Instruction Type:Patient Education Patient Instructions Indication:Phlebitis of arm Start:18-Dec-2015 Instruction Type:Provider Instructions for Treatment How to access health informa tion online Indication:Left arm swelling Start:17-Dec-2015 Instruction Type:Patient Education How to access health informa tion online - Detail Indication:Left arm swelling Start:17-Dec-2015 Instruction Type:Patient Education Patient Instructions Indication:Left arm swelling Start:17-Dec-2015 Instruction Type:Provider Instructions for Treatment How to access health informa tion online Indication:Lower GI bleed Start:14-Dec-2015 Instruction Type:Patient Education How to access health informa tion online - Detail Indication:Lower GI bleed Start:14-Dec-2015 Instruction Type:Patient Education instruction Indication:Lower GI bleed Start:14-Dec-2015 Instruction Type:Provider Instructions for Treatment How to access health informa tion online Indication:Vitamin D deficiency Start:26-Nov-2015 Instruction Type:Patient Education How to access health informa tion online - Detail Indication:Vitamin D deficiency Start:26-Nov-2015 Instruction Type:Patient Education Patient Instructions Indication:Vitamin D deficiency Start:26-Nov-2015 Instruction Type:Provider Instructions for Treatment How to access health informa tion online Indication:Hernia, umbilical Start:30-Aug-2015 Instruction Type:Patient Education How to access health informa tion online - Detail Indication:Hernia, umbilical Start:30-Aug-2015 Instruction Type:Patient Education Patient Instructions Indication:Hernia, umbilical Start:30-Aug-2015 Instruction Type:Provider Instructions for Treatment obesity counseling Indication:Benign essential HTN Start:29-Jun-2015 Instruction Type:Provider Instructions for Treatment How to access health informa tion online Indication:Annual Medicare Ph[employer] WITHOUT abnormal findings (Renamed from Encounter for general adult medical examination without abnormal findings) Start:29-Jun-2015 Instruction Type:Patient Education How to access health informa tion online - Detail Indication:Annual Medicare Ph[employer] WITHOUT abnormal findings (Renamed from Encounter for general adult medical examination without abnormal findings) Start:29-Jun-2015 Instruction Type:Patient Education Patient Instructions Indication:Annual Medicare [employer] WITHOUT abnormal findings (Renamed from Encounter for general adult medical examination without abnormal findings) Start:29-Jun-2015 Instruction Type:Provider Instructions for Treatment How to access health informa tion online - Detail Indication:Sinusitis Start:19-Apr-2015 Instruction Type:Patient Education Patient Instructions Indication:Sinusitis Start:19-Apr-2015 Instruction Type:Provider Instructions for Treatment How to access health informa tion online Indication:Benign essential HTN Start:04-Apr-2015 Instruction Type:Patient Education How to access health informa tion online - Detail Indication:Benign essential HTN Start:04-Apr-2015 Instruction Type:Patient Education Patient Instructions Indication:Benign essential HTN Start:04-Apr-2015 Instruction Type:Provider Instructions for Treatment How to access health informa tion online Indication:Leg swelling Start:28-Mar-2015 Instruction Type:Patient Education How to access health informa tion online - Detail Indication:Leg swelling Start:28-Mar-2015 Instruction Type:Patient Education Patient Instructions Indication:Leg swelling Start:28-Mar-2015 Instruction Type:Provider Instructions for Treatment How to access health informa tion online Indication:Leg swelling Start:12-Mar-2015 Instruction Type:Patient Education How to access health informa tion online - Detail Indication:Leg swelling Start:12-Mar-2015 Instruction Type:Patient Education Patient Instructions Indication:Leg swelling Start:12-Mar-2015 Instruction Type:Provider Instructions for Treatment Patient Instructions Indication:Knee pain, right Start:05-Feb-2015 Instruction Type:Provider Instructions for Treatment How to access health informa tion online Indication:Abnormal urine odor Start:18-Oct-2014 Instruction Type:Patient Education How to access health informa tion online - Detail Indication:Abnormal urine odor Start:18-Oct-2014 Instruction Type:Patient Education Patient Instructions-- Indication:Abnormal urine odor Start:18-Oct-2014 Instruction Type:Provider Instructions for Treatment How to access health informa tion online Indication:COPD (chronic obstructive pulmonary disease) Start:09-Jun-2014 Instruction Type:Patient Education How to access health informa tion online - Detail Indication:COPD (chronic obstructive pulmonary disease) Start:09-Jun-2014 Instruction Type:Patient Education Patient Instructions Indication:COPD (chronic obstructive pulmonary disease) Start:09-Jun-2014 Instruction Type:Provider Instructions for Treatment Patient Instructions Indication:Fibromyalgia Start:03-Jun-2013 Instruction Type:Provider Instructions for Treatment Patient Instructions Indication:Cough Start:23-Mar-2013 Instruction Type:Provider Instructions for Treatment Patient Instructions Indication:Acute sinusitis, unspecified Start:11-Nov-2012 Instruction Type:Provider Instructions for Treatment Patient Instructions Indication:Well woman exam Start:12-Jul-2012 Instruction Type:Provider Instructions for Treatment Patient Instructions Indication:Encounter for other screening for malignant neoplasm of breast Start:01-Jul-2012 Instruction Type:Provider Instructions for Treatment Name Dates Details How to access health informa tion online Indication:Non-smoker Start:05-Sep-2019 Instruction Type:Patient Education How to access health informa tion online - Detail Indication:Non-smoker Start:05-Sep-2019 Instruction Type:Patient Education Patient Instructions Indication:Non-smoker Start:05-Sep-2019 Instruction Type:Provider Instructions for Treatment How to access health informa tion online Indication:Non-smoker Start:11-Jul-2019 Instruction Type:Patient Education How to access health informa tion online - Detail Indication:Non-smoker Start:11-Jul-2019 Instruction Type:Patient Education Patient Instructions Indication:Non-smoker Start:11-Jul-2019 Instruction Type:Provider Instructions for Treatment cardiovascular counseling Indication:Benign essential HTN Start:03-Sep-2018 Instruction Type:Provider Instructions for Treatment How to access health informa tion online Indication:BMI 31.0-31.9,adult Start:03-Sep-2018 Instruction Type:Patient Education How to access health informa tion online - Detail Indication:BMI 31.0-31.9,adult Start:03-Sep-2018 Instruction Type:Patient Education Patient Instructions Indication:BMI 31.0-31.9,adult Start:03-Sep-2018 Instruction Type:Provider Instructions for Treatment How to access health informa tion online Indication:Nonsmoker Start:26-May-2018 Instruction Type:Patient Education How to access health informa tion online - Detail Indication:Nonsmoker Start:26-May-2018 Instruction Type:Patient Education Patient Instructions Indication:Nonsmoker Start:26-May-2018 Instruction Type:Provider Instructions for Treatment How to access health informa tion online Indication:Nonsmoker Start:15-Oct-2017 Instruction Type:Patient Education How to access health informa tion online - Detail Indication:Nonsmoker Start:15-Oct-2017 Instruction Type:Patient Education Patient Instructions Indication:Nonsmoker Start:15-Oct-2017 Instruction Type:Provider Instructions for Treatment How to access health informa tion online Indication:Benign essential HTN Start:24-Sep-2017 Instruction Type:Patient Education How to access health informa tion online - Detail Indication:Benign essential HTN Start:24-Sep-2017 Instruction Type:Patient Education Patient Instructions Indication:Benign essential HTN Start:24-Sep-2017 Instruction Type:Provider Instructions for Treatment How to access health informa tion online Indication:Nonsmoker Start:10-Aug-2017 Instruction Type:Patient Education How to access health informa tion online - Detail Indication:Nonsmoker Start:10-Aug-2017 Instruction Type:Patient Education Patient Instructions Indication:Nonsmoker Start:10-Aug-2017 Instruction Type:Provider Instructions for Treatment How to access health informa tion online Indication:Body mass index 31.0-31.9, adult (Renamed from BMI 31.0-31.9,adult) Start:18-May-2017 Instruction Type:Patient Education How to access health informa tion online - Detail Indication:Body mass index 31.0-31.9, adult (Renamed from BMI 31.0-31.9,adult) Start:18-May-2017 Instruction Type:Patient Education Patient Instructions Indication:Body mass index 31.0-31.9, adult (Renamed from BMI 31.0-31.9,adult) Start:18-May-2017 Instruction Type:Provider Instructions for Treatment How to access health informa tion online Indication:Nonsmoker Start:24-Oct-2016 Instruction Type:Patient Education How to access health informa tion online - Detail Indication:Nonsmoker Start:24-Oct-2016 Instruction Type:Patient Education Patient Instructions Indication:Nonsmoker Start:24-Oct-2016 Instruction Type:Provider Instructions for Treatment How to access health informa tion online Indication:Nonsmoker Start:20-Oct-2016 Instruction Type:Patient Education How to access health informa tion online - Detail Indication:Nonsmoker Start:20-Oct-2016 Instruction Type:Patient Education Patient Instructions Indication:Nonsmoker Start:20-Oct-2016 Instruction Type:Provider Instructions for Treatment How to access health informa tion online Indication:Flu-like symptoms Start:14-Oct-2016 Instruction Type:Patient Education How to access health informa tion online - Detail Indication:Flu-like symptoms Start:14-Oct-2016 Instruction Type:Patient Education Patient Instructions Indication:Flu-like symptoms Start:14-Oct-2016 Instruction Type:Provider Instructions for Treatment How to access health informa tion online Indication:Nonsmoker Start:04-Sep-2016 Instruction Type:Patient Education How to access health informa tion online - Detail Indication:Nonsmoker Start:04-Sep-2016 Instruction Type:Patient Education Patient Instructions Indication:Nonsmoker Start:04-Sep-2016 Instruction Type:Provider Instructions for Treatment obesity counseling Indication:Benign essential HTN Start:29-Jul-2016 Instruction Type:Provider Instructions for Treatment How to access health informa tion online Indication:Benign essential HTN Start:29-Jul-2016 Instruction Type:Patient Education How to access health informa tion online - Detail Indication:Benign essential HTN Start:29-Jul-2016 Instruction Type:Patient Education Patient Instructions Indication:Benign essential HTN Start:29-Jul-2016 Instruction Type:Provider Instructions for Treatment How to access health informa tion online Indication:Phlebitis of arm Start:18-Dec-2015 Instruction Type:Patient Education How to access health informa tion online - Detail Indication:Phlebitis of arm Start:18-Dec-2015 Instruction Type:Patient Education Patient Instructions Indication:Phlebitis of arm Start:18-Dec-2015 Instruction Type:Provider Instructions for Treatment How to access health informa tion online Indication:Left arm swelling Start:17-Dec-2015 Instruction Type:Patient Education How to access health informa tion online - Detail Indication:Left arm swelling Start:17-Dec-2015 Instruction Type:Patient Education Patient Instructions Indication:Left arm swelling Start:17-Dec-2015 Instruction Type:Provider Instructions for Treatment How to access health informa tion online Indication:Lower GI bleed Start:14-Dec-2015 Instruction Type:Patient Education How to access health informa tion online - Detail Indication:Lower GI bleed Start:14-Dec-2015 Instruction Type:Patient Education instruction Indication:Lower GI bleed Start:14-Dec-2015 Instruction Type:Provider Instructions for Treatment How to access health informa tion online Indication:Vitamin D deficiency Start:26-Nov-2015 Instruction Type:Patient Education How to access health informa tion online - Detail Indication:Vitamin D deficiency Start:26-Nov-2015 Instruction Type:Patient Education Patient Instructions Indication:Vitamin D deficiency Start:26-Nov-2015 Instruction Type:Provider Instructions for Treatment How to access health informa tion online Indication:Hernia, umbilical Start:30-Aug-2015 Instruction Type:Patient Education How to access health informa tion online - Detail Indication:Hernia, umbilical Start:30-Aug-2015 Instruction Type:Patient Education Patient Instructions Indication:Hernia, umbilical Start:30-Aug-2015 Instruction Type:Provider Instructions for Treatment obesity counseling Indication:Benign essential HTN Start:29-Jun-2015 Instruction Type:Provider Instructions for Treatment How to access health informa tion online Indication:Annual Medicare Ph[employer] WITHOUT abnormal findings (Renamed from Encounter for general adult medical examination without abnormal findings) Start:29-Jun-2015 Instruction Type:Patient Education How to access health informa tion online - Detail Indication:Annual Medicare Ph[employer] WITHOUT abnormal findings (Renamed from Encounter for general adult medical examination without abnormal findings) Start:29-Jun-2015 Instruction Type:Patient Education Patient Instructions Indication:Annual Medicare Ph[employer] WITHOUT abnormal findings (Renamed from Encounter for general adult medical examination without abnormal findings) Start:29-Jun-2015 Instruction Type:Provider Instructions for Treatment How to access health informa tion online - Detail Indication:Sinusitis Start:19-Apr-2015 Instruction Type:Patient Education Patient Instructions Indication:Sinusitis Start:19-Apr-2015 Instruction Type:Provider Instructions for Treatment How to access health informa tion online Indication:Benign essential HTN Start:04-Apr-2015 Instruction Type:Patient Education How to access health informa tion online - Detail Indication:Benign essential HTN Start:04-Apr-2015 Instruction Type:Patient Education Patient Instructions Indication:Benign essential HTN Start:04-Apr-2015 Instruction Type:Provider Instructions for Treatment How to access health informa tion online Indication:Leg swelling Start:28-Mar-2015 Instruction Type:Patient Education How to access health informa tion online - Detail Indication:Leg swelling Start:28-Mar-2015 Instruction Type:Patient Education Patient Instructions Indication:Leg swelling Start:28-Mar-2015 Instruction Type:Provider Instructions for Treatment How to access health informa tion online Indication:Leg swelling Start:12-Mar-2015 Instruction Type:Patient Education How to access health informa tion online - Detail Indication:Leg swelling Start:12-Mar-2015 Instruction Type:Patient Education Patient Instructions Indication:Leg swelling Start:12-Mar-2015 Instruction Type:Provider Instructions for Treatment Patient Instructions Indication:Knee pain, right Start:05-Feb-2015 Instruction Type:Provider Instructions for Treatment How to access health informa tion online Indication:Abnormal urine odor Start:18-Oct-2014 Instruction Type:Patient Education How to access health informa tion online - Detail Indication:Abnormal urine odor Start:18-Oct-2014 Instruction Type:Patient Education Patient Instructions-- Indication:Abnormal urine odor Start:18-Oct-2014 Instruction Type:Provider Instructions for Treatment How to access health informa tion online Indication:COPD (chronic obstructive pulmonary disease) Start:09-Jun-2014 Instruction Type:Patient Education How to access health informa tion online - Detail Indication:COPD (chronic obstructive pulmonary disease) Start:09-Jun-2014 Instruction Type:Patient Education Patient Instructions Indication:COPD (chronic obstructive pulmonary disease) Start:09-Jun-2014 Instruction Type:Provider Instructions for Treatment Patient Instructions Indication:Fibromyalgia Start:03-Jun-2013 Instruction Type:Provider Instructions for Treatment Patient Instructions Indication:Cough Start:23-Mar-2013 Instruction Type:Provider Instructions for Treatment Patient Instructions Indication:Acute sinusitis, unspecified Start:11-Nov-2012 Instruction Type:Provider Instructions for Treatment Patient Instructions Indication:Well woman exam Start:12-Jul-2012 Instruction Type:Provider Instructions for Treatment Patient Instructions Indication:Encounter for other screening for malignant neoplasm of breast Start:01-Jul-2012 Instruction Type:Provider Instructions for Treatment Name Dates Details How to access health informa tion online Indication:BMI 30.0-30.9,adult Start:25-Jul-2020 Instruction Type:Patient Education How to access health informa tion online - Detail Indication:BMI 30.0-30.9,adult Start:25-Jul-2020 Instruction Type:Patient Education Patient Instructions Indication:BMI 30.0-30.9,adult Start:25-Jul-2020 Instruction Type:Provider Instructions for Treatment How to access health informa tion online Indication:Non-smoker Start:05-Sep-2019 Instruction Type:Patient Education How to access health informa tion online - Detail Indication:Non-smoker Start:05-Sep-2019 Instruction Type:Patient Education Patient Instructions Indication:Non-smoker Start:05-Sep-2019 Instruction Type:Provider Instructions for Treatment How to access health informa tion online Indication:Non-smoker Start:11-Jul-2019 Instruction Type:Patient Education How to access health informa tion online - Detail Indication:Non-smoker Start:11-Jul-2019 Instruction Type:Patient Education Patient Instructions Indication:Non-smoker Start:11-Jul-2019 Instruction Type:Provider Instructions for Treatment cardiovascular counseling Indication:Benign essential HTN Start:03-Sep-2018 Instruction Type:Provider Instructions for Treatment How to access health informa tion online Indication:BMI 31.0-31.9,adult Start:03-Sep-2018 Instruction Type:Patient Education How to access health informa tion online - Detail Indication:BMI 31.0-31.9,adult Start:03-Sep-2018 Instruction Type:Patient Education Patient Instructions Indication:BMI 31.0-31.9,adult Start:03-Sep-2018 Instruction Type:Provider Instructions for Treatment How to access health informa tion online Indication:Nonsmoker Start:26-May-2018 Instruction Type:Patient Education How to access health informa tion online - Detail Indication:Nonsmoker Start:26-May-2018 Instruction Type:Patient Education Patient Instructions Indication:Nonsmoker Start:26-May-2018 Instruction Type:Provider Instructions for Treatment How to access health informa tion online Indication:Nonsmoker Start:15-Oct-2017 Instruction Type:Patient Education How to access health informa tion online - Detail Indication:Nonsmoker Start:15-Oct-2017 Instruction Type:Patient Education Patient Instructions Indication:Nonsmoker Start:15-Oct-2017 Instruction Type:Provider Instructions for Treatment How to access health informa tion online Indication:Benign essential HTN Start:24-Sep-2017 Instruction Type:Patient Education How to access health informa tion online - Detail Indication:Benign essential HTN Start:24-Sep-2017 Instruction Type:Patient Education Patient Instructions Indication:Benign essential HTN Start:24-Sep-2017 Instruction Type:Provider Instructions for Treatment How to access health informa tion online Indication:Nonsmoker Start:10-Aug-2017 Instruction Type:Patient Education How to access health informa tion online - Detail Indication:Nonsmoker Start:10-Aug-2017 Instruction Type:Patient Education Patient Instructions Indication:Nonsmoker Start:10-Aug-2017 Instruction Type:Provider Instructions for Treatment How to access health informa tion online Indication:Body mass index 31.0-31.9, adult (Renamed from BMI 31.0-31.9,adult) Start:18-May-2017 Instruction Type:Patient Education How to access health informa tion online - Detail Indication:Body mass index 31.0-31.9, adult (Renamed from BMI 31.0-31.9,adult) Start:18-May-2017 Instruction Type:Patient Education Patient Instructions Indication:Body mass index 31.0-31.9, adult (Renamed from BMI 31.0-31.9,adult) Start:18-May-2017 Instruction Type:Provider Instructions for Treatment How to access health informa tion online Indication:Nonsmoker Start:24-Oct-2016 Instruction Type:Patient Education How to access health informa tion online - Detail Indication:Nonsmoker Start:24-Oct-2016 Instruction Type:Patient Education Patient Instructions Indication:Nonsmoker Start:24-Oct-2016 Instruction Type:Provider Instructions for Treatment How to access health informa tion online Indication:Nonsmoker Start:20-Oct-2016 Instruction Type:Patient Education How to access health informa tion online - Detail Indication:Nonsmoker Start:20-Oct-2016 Instruction Type:Patient Education Patient Instructions Indication:Nonsmoker Start:20-Oct-2016 Instruction Type:Provider Instructions for Treatment How to access health informa tion online Indication:Flu-like symptoms Start:14-Oct-2016 Instruction Type:Patient Education How to access health informa tion online - Detail Indication:Flu-like symptoms Start:14-Oct-2016 Instruction Type:Patient Education Patient Instructions Indication:Flu-like symptoms Start:14-Oct-2016 Instruction Type:Provider Instructions for Treatment How to access health informa tion online Indication:Nonsmoker Start:04-Sep-2016 Instruction Type:Patient Education How to access health informa tion online - Detail Indication:Nonsmoker Start:04-Sep-2016 Instruction Type:Patient Education Patient Instructions Indication:Nonsmoker Start:04-Sep-2016 Instruction Type:Provider Instructions for Treatment obesity counseling Indication:Benign essential HTN Start:29-Jul-2016 Instruction Type:Provider Instructions for Treatment How to access health informa tion online Indication:Benign essential HTN Start:29-Jul-2016 Instruction Type:Patient Education How to access health informa tion online - Detail Indication:Benign essential HTN Start:29-Jul-2016 Instruction Type:Patient Education Patient Instructions Indication:Benign essential HTN Start:29-Jul-2016 Instruction Type:Provider Instructions for Treatment How to access health informa tion online Indication:Phlebitis of arm Start:18-Dec-2015 Instruction Type:Patient Education How to access health informa tion online - Detail Indication:Phlebitis of arm Start:18-Dec-2015 Instruction Type:Patient Education Patient Instructions Indication:Phlebitis of arm Start:18-Dec-2015 Instruction Type:Provider Instructions for Treatment How to access health informa tion online Indication:Left arm swelling Start:17-Dec-2015 Instruction Type:Patient Education How to access health informa tion online - Detail Indication:Left arm swelling Start:17-Dec-2015 Instruction Type:Patient Education Patient Instructions Indication:Left arm swelling Start:17-Dec-2015 Instruction Type:Provider Instructions for Treatment How to access health informa tion online Indication:Lower GI bleed Start:14-Dec-2015 Instruction Type:Patient Education How to access health informa tion online - Detail Indication:Lower GI bleed Start:14-Dec-2015 Instruction Type:Patient Education instruction Indication:Lower GI bleed Start:14-Dec-2015 Instruction Type:Provider Instructions for Treatment How to access health informa tion online Indication:Vitamin D deficiency Start:26-Nov-2015 Instruction Type:Patient Education How to access health informa tion online - Detail Indication:Vitamin D deficiency Start:26-Nov-2015 Instruction Type:Patient Education Patient Instructions Indication:Vitamin D deficiency Start:26-Nov-2015 Instruction Type:Provider Instructions for Treatment How to access health informa tion online Indication:Hernia, umbilical Start:30-Aug-2015 Instruction Type:Patient Education How to access health informa tion online - Detail Indication:Hernia, umbilical Start:30-Aug-2015 Instruction Type:Patient Education Patient Instructions Indication:Hernia, umbilical Start:30-Aug-2015 Instruction Type:Provider Instructions for Treatment obesity counseling Indication:Benign essential HTN Start:29-Jun-2015 Instruction Type:Provider Instructions for Treatment How to access health informa tion online Indication:Annual Medicare Phyiscal WITHOUT abnormal findings (Renamed from Encounter for general adult medical examination without abnormal findings) Start:29-Jun-2015 Instruction Type:Patient Education How to access health informa tion online - Detail Indication:Annual Medicare Phyiscal WITHOUT abnormal findings (Renamed from Encounter for general adult medical examination without abnormal findings) Start:29-Jun-2015 Instruction Type:Patient Education Patient Instructions Indication:Annual Medicare Phyiscal WITHOUT abnormal findings (Renamed from Encounter for general adult medical examination without abnormal findings) Start:29-Jun-2015 Instruction Type:Provider Instructions for Treatment How to access health informa tion online - Detail Indication:Sinusitis Start:19-Apr-2015 Instruction Type:Patient Education Patient Instructions Indication:Sinusitis Start:19-Apr-2015 Instruction Type:Provider Instructions for Treatment How to access health informa tion online Indication:Benign essential HTN Start:04-Apr-2015 Instruction Type:Patient Education How to access health informa tion online - Detail Indication:Benign essential HTN Start:04-Apr-2015 Instruction Type:Patient Education Patient Instructions Indication:Benign essential HTN Start:04-Apr-2015 Instruction Type:Provider Instructions for Treatment How to access health informa tion online Indication:Leg swelling Start:28-Mar-2015 Instruction Type:Patient Education How to access health informa tion online - Detail Indication:Leg swelling Start:28-Mar-2015 Instruction Type:Patient Education Patient Instructions Indication:Leg swelling Start:28-Mar-2015 Instruction Type:Provider Instructions for Treatment How to access health informa tion online Indication:Leg swelling Start:12-Mar-2015 Instruction Type:Patient Education How to access health informa tion online - Detail Indication:Leg swelling Start:12-Mar-2015 Instruction Type:Patient Education Patient Instructions Indication:Leg swelling Start:12-Mar-2015 Instruction Type:Provider Instructions for Treatment Patient Instructions Indication:Knee pain, right Start:05-Feb-2015 Instruction Type:Provider Instructions for Treatment How to access health informa tion online Indication:Abnormal urine odor Start:18-Oct-2014 Instruction Type:Patient Education How to access health informa tion online - Detail Indication:Abnormal urine odor Start:18-Oct-2014 Instruction Type:Patient Education Patient Instructions-- Indication:Abnormal urine odor Start:18-Oct-2014 Instruction Type:Provider Instructions for Treatment How to access health informa tion online Indication:COPD (chronic obstructive pulmonary disease) Start:09-Jun-2014 Instruction Type:Patient Education How to access health informa tion online - Detail Indication:COPD (chronic obstructive pulmonary disease) Start:09-Jun-2014 Instruction Type:Patient Education Patient Instructions Indication:COPD (chronic obstructive pulmonary disease) Start:09-Jun-2014 Instruction Type:Provider Instructions for Treatment Patient Instructions Indication:Fibromyalgia Start:03-Jun-2013 Instruction Type:Provider Instructions for Treatment Patient Instructions Indication:Cough Start:23-Mar-2013 Instruction Type:Provider Instructions for Treatment Patient Instructions Indication:Acute sinusitis, unspecified Start:11-Nov-2012 Instruction Type:Provider Instructions for Treatment Patient Instructions Indication:Well woman exam Start:12-Jul-2012 Instruction Type:Provider Instructions for Treatment Patient Instructions Indication:Encounter for other screening for malignant neoplasm of breast Start:01-Jul-2012 Instruction Type:Provider Instructions for Treatment Name Dates Details How to access health informa tion online Indication:BMI 30.0-30.9,adult Start:25-Jul-2020 Instruction Type:Patient Education How to access health informa tion online - Detail Indication:BMI 30.0-30.9,adult Start:25-Jul-2020 Instruction Type:Patient Education Patient Instructions Indication:BMI 30.0-30.9,adult Start:25-Jul-2020 Instruction Type:Provider Instructions for Treatment How to access health informa tion online Indication:Non-smoker Start:05-Sep-2019 Instruction Type:Patient Education How to access health informa tion online - Detail Indication:Non-smoker Start:05-Sep-2019 Instruction Type:Patient Education Patient Instructions Indication:Non-smoker Start:05-Sep-2019 Instruction Type:Provider Instructions for Treatment How to access health informa tion online Indication:Non-smoker Start:11-Jul-2019 Instruction Type:Patient Education How to access health informa tion online - Detail Indication:Non-smoker Start:11-Jul-2019 Instruction Type:Patient Education Patient Instructions Indication:Non-smoker Start:11-Jul-2019 Instruction Type:Provider Instructions for Treatment cardiovascular counseling Indication:Benign essential HTN Start:03-Sep-2018 Instruction Type:Provider Instructions for Treatment How to access health informa tion online Indication:BMI 31.0-31.9,adult Start:03-Sep-2018 Instruction Type:Patient Education How to access health informa tion online - Detail Indication:BMI 31.0-31.9,adult Start:03-Sep-2018 Instruction Type:Patient Education Patient Instructions Indication:BMI 31.0-31.9,adult Start:03-Sep-2018 Instruction Type:Provider Instructions for Treatment How to access health informa tion online Indication:Nonsmoker Start:26-May-2018 Instruction Type:Patient Education How to access health informa tion online - Detail Indication:Nonsmoker Start:26-May-2018 Instruction Type:Patient Education Patient Instructions Indication:Nonsmoker Start:26-May-2018 Instruction Type:Provider Instructions for Treatment How to access health informa tion online Indication:Nonsmoker Start:15-Oct-2017 Instruction Type:Patient Education How to access health informa tion online - Detail Indication:Nonsmoker Start:15-Oct-2017 Instruction Type:Patient Education Patient Instructions Indication:Nonsmoker Start:15-Oct-2017 Instruction Type:Provider Instructions for Treatment How to access health informa tion online Indication:Benign essential HTN Start:24-Sep-2017 Instruction Type:Patient Education How to access health informa tion online - Detail Indication:Benign essential HTN Start:24-Sep-2017 Instruction Type:Patient Education Patient Instructions Indication:Benign essential HTN Start:24-Sep-2017 Instruction Type:Provider Instructions for Treatment How to access health informa tion online Indication:Nonsmoker Start:10-Aug-2017 Instruction Type:Patient Education How to access health informa tion online - Detail Indication:Nonsmoker Start:10-Aug-2017 Instruction Type:Patient Education Patient Instructions Indication:Nonsmoker Start:10-Aug-2017 Instruction Type:Provider Instructions for Treatment How to access health informa tion online Indication:Body mass index 31.0-31.9, adult (Renamed from BMI 31.0-31.9,adult) Start:18-May-2017 Instruction Type:Patient Education How to access health informa tion online - Detail Indication:Body mass index 31.0-31.9, adult (Renamed from BMI 31.0-31.9,adult) Start:18-May-2017 Instruction Type:Patient Education Patient Instructions Indication:Body mass index 31.0-31.9, adult (Renamed from BMI 31.0-31.9,adult) Start:18-May-2017 Instruction Type:Provider Instructions for Treatment How to access health informa tion online Indication:Nonsmoker Start:24-Oct-2016 Instruction Type:Patient Education How to access health informa tion online - Detail Indication:Nonsmoker Start:24-Oct-2016 Instruction Type:Patient Education Patient Instructions Indication:Nonsmoker Start:24-Oct-2016 Instruction Type:Provider Instructions for Treatment How to access health informa tion online Indication:Nonsmoker Start:20-Oct-2016 Instruction Type:Patient Education How to access health informa tion online - Detail Indication:Nonsmoker Start:20-Oct-2016 Instruction Type:Patient Education Patient Instructions Indication:Nonsmoker Start:20-Oct-2016 Instruction Type:Provider Instructions for Treatment How to access health informa tion online Indication:Flu-like symptoms Start:14-Oct-2016 Instruction Type:Patient Education How to access health informa tion online - Detail Indication:Flu-like symptoms Start:14-Oct-2016 Instruction Type:Patient Education Patient Instructions Indication:Flu-like symptoms Start:14-Oct-2016 Instruction Type:Provider Instructions for Treatment How to access health informa tion online Indication:Nonsmoker Start:04-Sep-2016 Instruction Type:Patient Education How to access health informa tion online - Detail Indication:Nonsmoker Start:04-Sep-2016 Instruction Type:Patient Education Patient Instructions Indication:Nonsmoker Start:04-Sep-2016 Instruction Type:Provider Instructions for Treatment obesity counseling Indication:Benign essential HTN Start:29-Jul-2016 Instruction Type:Provider Instructions for Treatment How to access health informa tion online Indication:Benign essential HTN Start:29-Jul-2016 Instruction Type:Patient Education How to access health informa tion online - Detail Indication:Benign essential HTN Start:29-Jul-2016 Instruction Type:Patient Education Patient Instructions Indication:Benign essential HTN Start:29-Jul-2016 Instruction Type:Provider Instructions for Treatment How to access health informa tion online Indication:Phlebitis of arm Start:18-Dec-2015 Instruction Type:Patient Education How to access health informa tion online - Detail Indication:Phlebitis of arm Start:18-Dec-2015 Instruction Type:Patient Education Patient Instructions Indication:Phlebitis of arm Start:18-Dec-2015 Instruction Type:Provider Instructions for Treatment How to access health informa tion online Indication:Left arm swelling Start:17-Dec-2015 Instruction Type:Patient Education How to access health informa tion online - Detail Indication:Left arm swelling Start:17-Dec-2015 Instruction Type:Patient Education Patient Instructions Indication:Left arm swelling Start:17-Dec-2015 Instruction Type:Provider Instructions for Treatment How to access health informa tion online Indication:Lower GI bleed Start:14-Dec-2015 Instruction Type:Patient Education How to access health informa tion online - Detail Indication:Lower GI bleed Start:14-Dec-2015 Instruction Type:Patient Education instruction Indication:Lower GI bleed Start:14-Dec-2015 Instruction Type:Provider Instructions for Treatment How to access health informa tion online Indication:Vitamin D deficiency Start:26-Nov-2015 Instruction Type:Patient Education How to access health informa tion online - Detail Indication:Vitamin D deficiency Start:26-Nov-2015 Instruction Type:Patient Education Patient Instructions Indication:Vitamin D deficiency Start:26-Nov-2015 Instruction Type:Provider Instructions for Treatment How to access health informa tion online Indication:Hernia, umbilical Start:30-Aug-2015 Instruction Type:Patient Education How to access health informa tion online - Detail Indication:Hernia, umbilical Start:30-Aug-2015 Instruction Type:Patient Education Patient Instructions Indication:Hernia, umbilical Start:30-Aug-2015 Instruction Type:Provider Instructions for Treatment obesity counseling Indication:Benign essential HTN Start:29-Jun-2015 Instruction Type:Provider Instructions for Treatment How to access health informa tion online Indication:Annual Medicare Phyiscal WITHOUT abnormal findings (Renamed from Encounter for general adult medical examination without abnormal findings) Start:29-Jun-2015 Instruction Type:Patient Education How to access health informa tion online - Detail Indication:Annual Medicare Phyiscal WITHOUT abnormal findings (Renamed from Encounter for general adult medical examination without abnormal findings) Start:29-Jun-2015 Instruction Type:Patient Education Patient Instructions Indication:Annual Medicare Phyiscal WITHOUT abnormal findings (Renamed from Encounter for general adult medical examination without abnormal findings) Start:29-Jun-2015 Instruction Type:Provider Instructions for Treatment How to access health informa tion online - Detail Indication:Sinusitis Start:19-Apr-2015 Instruction Type:Patient Education Patient Instructions Indication:Sinusitis Start:19-Apr-2015 Instruction Type:Provider Instructions for Treatment How to access health informa tion online Indication:Benign essential HTN Start:04-Apr-2015 Instruction Type:Patient Education How to access health informa tion online - Detail Indication:Benign essential HTN Start:04-Apr-2015 Instruction Type:Patient Education Patient Instructions Indication:Benign essential HTN Start:04-Apr-2015 Instruction Type:Provider Instructions for Treatment How to access health informa tion online Indication:Leg swelling Start:28-Mar-2015 Instruction Type:Patient Education How to access health informa tion online - Detail Indication:Leg swelling Start:28-Mar-2015 Instruction Type:Patient Education Patient Instructions Indication:Leg swelling Start:28-Mar-2015 Instruction Type:Provider Instructions for Treatment How to access health informa tion online Indication:Leg swelling Start:12-Mar-2015 Instruction Type:Patient Education How to access health informa tion online - Detail Indication:Leg swelling Start:12-Mar-2015 Instruction Type:Patient Education Patient Instructions Indication:Leg swelling Start:12-Mar-2015 Instruction Type:Provider Instructions for Treatment Patient Instructions Indication:Knee pain, right Start:05-Feb-2015 Instruction Type:Provider Instructions for Treatment How to access health informa tion online Indication:Abnormal urine odor Start:18-Oct-2014 Instruction Type:Patient Education How to access health informa tion online - Detail Indication:Abnormal urine odor Start:18-Oct-2014 Instruction Type:Patient Education Patient Instructions-- Indication:Abnormal urine odor Start:18-Oct-2014 Instruction Type:Provider Instructions for Treatment How to access health informa tion online Indication:COPD (chronic obstructive pulmonary disease) Start:09-Jun-2014 Instruction Type:Patient Education How to access health informa tion online - Detail Indication:COPD (chronic obstructive pulmonary disease) Start:09-Jun-2014 Instruction Type:Patient Education Patient Instructions Indication:COPD (chronic obstructive pulmonary disease) Start:09-Jun-2014 Instruction Type:Provider Instructions for Treatment Patient Instructions Indication:Fibromyalgia Start:03-Jun-2013 Instruction Type:Provider Instructions for Treatment Patient Instructions Indication:Cough Start:23-Mar-2013 Instruction Type:Provider Instructions for Treatment Patient Instructions Indication:Acute sinusitis, unspecified Start:11-Nov-2012 Instruction Type:Provider Instructions for Treatment Patient Instructions Indication:Well woman exam Start:12-Jul-2012 Instruction Type:Provider Instructions for Treatment Patient Instructions Indication:Encounter for other screening for malignant neoplasm of breast Start:01-Jul-2012 Instruction Type:Provider Instructions for Treatment Name Dates Details How to access health informa tion online Indication:BMI 30.0-30.9,adult Start:25-Jul-2020 Instruction Type:Patient Education How to access health informa tion online - Detail Indication:BMI 30.0-30.9,adult Start:25-Jul-2020 Instruction Type:Patient Education Patient Instructions Indication:BMI 30.0-30.9,adult Start:25-Jul-2020 Instruction Type:Provider Instructions for Treatment How to access health informa tion online Indication:Non-smoker Start:05-Sep-2019 Instruction Type:Patient Education How to access health informa tion online - Detail Indication:Non-smoker Start:05-Sep-2019 Instruction Type:Patient Education Patient Instructions Indication:Non-smoker Start:05-Sep-2019 Instruction Type:Provider Instructions for Treatment How to access health informa tion online Indication:Non-smoker Start:11-Jul-2019 Instruction Type:Patient Education How to access health informa tion online - Detail Indication:Non-smoker Start:11-Jul-2019 Instruction Type:Patient Education Patient Instructions Indication:Non-smoker Start:11-Jul-2019 Instruction Type:Provider Instructions for Treatment cardiovascular counseling Indication:Benign essential HTN Start:03-Sep-2018 Instruction Type:Provider Instructions for Treatment How to access health informa tion online Indication:BMI 31.0-31.9,adult Start:03-Sep-2018 Instruction Type:Patient Education How to access health informa tion online - Detail Indication:BMI 31.0-31.9,adult Start:03-Sep-2018 Instruction Type:Patient Education Patient Instructions Indication:BMI 31.0-31.9,adult Start:03-Sep-2018 Instruction Type:Provider Instructions for Treatment How to access health informa tion online Indication:Nonsmoker Start:26-May-2018 Instruction Type:Patient Education How to access health informa tion online - Detail Indication:Nonsmoker Start:26-May-2018 Instruction Type:Patient Education Patient Instructions Indication:Nonsmoker Start:26-May-2018 Instruction Type:Provider Instructions for Treatment How to access health informa tion online Indication:Nonsmoker Start:15-Oct-2017 Instruction Type:Patient Education How to access health informa tion online - Detail Indication:Nonsmoker Start:15-Oct-2017 Instruction Type:Patient Education Patient Instructions Indication:Nonsmoker Start:15-Oct-2017 Instruction Type:Provider Instructions for Treatment How to access health informa tion online Indication:Benign essential HTN Start:24-Sep-2017 Instruction Type:Patient Education How to access health informa tion online - Detail Indication:Benign essential HTN Start:24-Sep-2017 Instruction Type:Patient Education Patient Instructions Indication:Benign essential HTN Start:24-Sep-2017 Instruction Type:Provider Instructions for Treatment How to access health informa tion online Indication:Nonsmoker Start:10-Aug-2017 Instruction Type:Patient Education How to access health informa tion online - Detail Indication:Nonsmoker Start:10-Aug-2017 Instruction Type:Patient Education Patient Instructions Indication:Nonsmoker Start:10-Aug-2017 Instruction Type:Provider Instructions for Treatment How to access health informa tion online Indication:Body mass index 31.0-31.9, adult (Renamed from BMI 31.0-31.9,adult) Start:18-May-2017 Instruction Type:Patient Education How to access health informa tion online - Detail Indication:Body mass index 31.0-31.9, adult (Renamed from BMI 31.0-31.9,adult) Start:18-May-2017 Instruction Type:Patient Education Patient Instructions Indication:Body mass index 31.0-31.9, adult (Renamed from BMI 31.0-31.9,adult) Start:18-May-2017 Instruction Type:Provider Instructions for Treatment How to access health informa tion online Indication:Nonsmoker Start:24-Oct-2016 Instruction Type:Patient Education How to access health informa tion online - Detail Indication:Nonsmoker Start:24-Oct-2016 Instruction Type:Patient Education Patient Instructions Indication:Nonsmoker Start:24-Oct-2016 Instruction Type:Provider Instructions for Treatment How to access health informa tion online Indication:Nonsmoker Start:20-Oct-2016 Instruction Type:Patient Education How to access health informa tion online - Detail Indication:Nonsmoker Start:20-Oct-2016 Instruction Type:Patient Education Patient Instructions Indication:Nonsmoker Start:20-Oct-2016 Instruction Type:Provider Instructions for Treatment How to access health informa tion online Indication:Flu-like symptoms Start:14-Oct-2016 Instruction Type:Patient Education How to access health informa tion online - Detail Indication:Flu-like symptoms Start:14-Oct-2016 Instruction Type:Patient Education Patient Instructions Indication:Flu-like symptoms Start:14-Oct-2016 Instruction Type:Provider Instructions for Treatment How to access health informa tion online Indication:Nonsmoker Start:04-Sep-2016 Instruction Type:Patient Education How to access health informa tion online - Detail Indication:Nonsmoker Start:04-Sep-2016 Instruction Type:Patient Education Patient Instructions Indication:Nonsmoker Start:04-Sep-2016 Instruction Type:Provider Instructions for Treatment obesity counseling Indication:Benign essential HTN Start:29-Jul-2016 Instruction Type:Provider Instructions for Treatment How to access health informa tion online Indication:Benign essential HTN Start:29-Jul-2016 Instruction Type:Patient Education How to access health informa tion online - Detail Indication:Benign essential HTN Start:29-Jul-2016 Instruction Type:Patient Education Patient Instructions Indication:Benign essential HTN Start:29-Jul-2016 Instruction Type:Provider Instructions for Treatment How to access health informa tion online Indication:Phlebitis of arm Start:18-Dec-2015 Instruction Type:Patient Education How to access health informa tion online - Detail Indication:Phlebitis of arm Start:18-Dec-2015 Instruction Type:Patient Education Patient Instructions Indication:Phlebitis of arm Start:18-Dec-2015 Instruction Type:Provider Instructions for Treatment How to access health informa tion online Indication:Left arm swelling Start:17-Dec-2015 Instruction Type:Patient Education How to access health informa tion online - Detail Indication:Left arm swelling Start:17-Dec-2015 Instruction Type:Patient Education Patient Instructions Indication:Left arm swelling Start:17-Dec-2015 Instruction Type:Provider Instructions for Treatment How to access health informa tion online Indication:Lower GI bleed Start:14-Dec-2015 Instruction Type:Patient Education How to access health informa tion online - Detail Indication:Lower GI bleed Start:14-Dec-2015 Instruction Type:Patient Education instruction Indication:Lower GI bleed Start:14-Dec-2015 Instruction Type:Provider Instructions for Treatment How to access health informa tion online Indication:Vitamin D deficiency Start:26-Nov-2015 Instruction Type:Patient Education How to access health informa tion online - Detail Indication:Vitamin D deficiency Start:26-Nov-2015 Instruction Type:Patient Education Patient Instructions Indication:Vitamin D deficiency Start:26-Nov-2015 Instruction Type:Provider Instructions for Treatment How to access health informa tion online Indication:Hernia, umbilical Start:30-Aug-2015 Instruction Type:Patient Education How to access health informa tion online - Detail Indication:Hernia, umbilical Start:30-Aug-2015 Instruction Type:Patient Education Patient Instructions Indication:Hernia, umbilical Start:30-Aug-2015 Instruction Type:Provider Instructions for Treatment obesity counseling Indication:Benign essential HTN Start:29-Jun-2015 Instruction Type:Provider Instructions for Treatment How to access health informa tion online Indication:Annual Medicare Phyiscal WITHOUT abnormal findings (Renamed from Encounter for general adult medical examination without abnormal findings) Start:29-Jun-2015 Instruction Type:Patient Education How to access health informa tion online - Detail Indication:Annual Medicare Phyiscal WITHOUT abnormal findings (Renamed from Encounter for general adult medical examination without abnormal findings) Start:29-Jun-2015 Instruction Type:Patient Education Patient Instructions Indication:Annual Medicare Phyiscal WITHOUT abnormal findings (Renamed from Encounter for general adult medical examination without abnormal findings) Start:29-Jun-2015 Instruction Type:Provider Instructions for Treatment How to access health informa tion online - Detail Indication:Sinusitis Start:19-Apr-2015 Instruction Type:Patient Education Patient Instructions Indication:Sinusitis Start:19-Apr-2015 Instruction Type:Provider Instructions for Treatment How to access health informa tion online Indication:Benign essential HTN Start:04-Apr-2015 Instruction Type:Patient Education How to access health informa tion online - Detail Indication:Benign essential HTN Start:04-Apr-2015 Instruction Type:Patient Education Patient Instructions Indication:Benign essential HTN Start:04-Apr-2015 Instruction Type:Provider Instructions for Treatment How to access health informa tion online Indication:Leg swelling Start:28-Mar-2015 Instruction Type:Patient Education How to access health informa tion online - Detail Indication:Leg swelling Start:28-Mar-2015 Instruction Type:Patient Education Patient Instructions Indication:Leg swelling Start:28-Mar-2015 Instruction Type:Provider Instructions for Treatment How to access health informa tion online Indication:Leg swelling Start:12-Mar-2015 Instruction Type:Patient Education How to access health informa tion online - Detail Indication:Leg swelling Start:12-Mar-2015 Instruction Type:Patient Education Patient Instructions Indication:Leg swelling Start:12-Mar-2015 Instruction Type:Provider Instructions for Treatment Patient Instructions Indication:Knee pain, right Start:05-Feb-2015 Instruction Type:Provider Instructions for Treatment How to access health informa tion online Indication:Abnormal urine odor Start:18-Oct-2014 Instruction Type:Patient Education How to access health informa tion online - Detail Indication:Abnormal urine odor Start:18-Oct-2014 Instruction Type:Patient Education Patient Instructions-- Indication:Abnormal urine odor Start:18-Oct-2014 Instruction Type:Provider Instructions for Treatment How to access health informa tion online Indication:COPD (chronic obstructive pulmonary disease) Start:09-Jun-2014 Instruction Type:Patient Education How to access health informa tion online - Detail Indication:COPD (chronic obstructive pulmonary disease) Start:09-Jun-2014 Instruction Type:Patient Education Patient Instructions Indication:COPD (chronic obstructive pulmonary disease) Start:09-Jun-2014 Instruction Type:Provider Instructions for Treatment Patient Instructions Indication:Fibromyalgia Start:03-Jun-2013 Instruction Type:Provider Instructions for Treatment Patient Instructions Indication:Cough Start:23-Mar-2013 Instruction Type:Provider Instructions for Treatment Patient Instructions Indication:Acute sinusitis, unspecified Start:11-Nov-2012 Instruction Type:Provider Instructions for Treatment Patient Instructions Indication:Well woman exam Start:12-Jul-2012 Instruction Type:Provider Instructions for Treatment Patient Instructions Indication:Encounter for other screening for malignant neoplasm of breast Start:01-Jul-2012 Instruction Type:Provider Instructions for Treatment Summary Purpose Advance Directives Name Dates Details Immunization Registry [place] - Effective on 06/21/2019. Expiration date unspecified Effective:21-Jun-2019 Name Dates Details Immunization Registry [place] - Effective on 06/21/2019. Expiration date unspecified Effective:21-Jun-2019 Name Dates Details Immunization Registry [place] - Effective on 06/21/2019. Expiration date unspecified Effective:21-Jun-2019 Name Dates Details Immunization Registry [place] - Effective on 06/21/2019. Expiration date unspecified Effective:21-Jun-2019 Name Dates Details Immunization Registry [place] - Effective on 06/21/2019. Expiration date unspecified Effective:21-Jun-2019 Name Dates Details Immunization Registry [place] - Effective on 06/21/2019. Expiration date unspecified Effective:21-Jun-2019 Name Dates Details Immunization Registry [place] - Effective on 06/21/2019. Expiration date unspecified Effective:21-Jun-2019 Name Dates Details Immunization Registry [place] - Effective on 06/21/2019. Expiration date unspecified Effective:21-Jun-2019 Name Dates Details Immunization Registry [place] - Effective on 06/21/2019. Expiration date unspecified Effective:21-Jun-2019 Name Dates Details Immunization Registry [place] - Effective on 06/21/2019. Expiration date unspecified Effective:21-Jun-2019 Name Dates Details Immunization Registry [place] - Effective on 06/21/2019. Expiration date unspecified Effective:21-Jun-2019 Name Dates Details Immunization Registry [place] - Effective on 06/21/2019. Expiration date unspecified Effective:21-Jun-2019 Name Dates Details Immunization Registry [place] - Effective on 06/21/2019. Expiration date unspecified Effective:21-Jun-2019 Name Dates Details Immunization Registry [place] - Effective on 06/21/2019. Expiration date unspecified Effective:21-Jun-2019 Name Dates Details Immunization Registry [place] - Effective on 06/21/2019. Expiration date unspecified Effective:21-Jun-2019 Name Dates Details Immunization Registry [place] - Effective on 06/21/2019. Expiration date unspecified Effective:21-Jun-2019 Name Dates Details Immunization Registry [place] - Effective on 06/21/2019. Expiration date unspecified Effective:21-Jun-2019 Name Dates Details Immunization Registry [place] - Effective on 06/21/2019. Expiration date unspecified Effective:21-Jun-2019 Name Dates Details Immunization Registry [place] - Effective on 06/21/2019. Expiration date unspecified Effective:21-Jun-2019 Additional Source Comments INFORMATION SOURCE (unrecogn ized section and content) DATE CREATED AUTHOR AUTHOR'S BRAXTON ATION 08/24/2023 [facility] Source Comments (unrecognize d section and content) In the event this informatio n is protected by the Federal Confidentiality of Alcohol and Drug Abuse Patient Records regulations: The Federal rules restrict any use of the information to criminally investigate or prosecute any alcohol or drug abuse patient.[facility] the event this information is protected by the Federal Confidentiality of Alcohol and Drug Abuse Patient Records regulations: The Federal rules restrict any use of the information to criminally investigate or prosecute any alcohol or drug abuse patient.[facility] the event this information is protected by the Federal Confidentiality of Alcohol and Drug Abuse Patient Records regulations: The Federal rules restrict any use of the information to criminally investigate or prosecute any alcohol or drug abuse patient.[facility] the event this information is protected by the Federal Confidentiality of Alcohol and Drug Abuse Patient Records regulations: The Federal rules restrict any use of the information to criminally investigate or prosecute any alcohol or drug abuse patient.[facility] the event this information is protected by the Federal Confidentiality of Alcohol and Drug Abuse Patient Records regulations: The Federal rules restrict any use of the information to criminally investigate or prosecute any alcohol or drug abuse patient.[facility] the event this information is protected by the Federal Confidentiality of Alcohol and Drug Abuse Patient Records regulations: The Federal rules restrict any use of the information to criminally investigate or prosecute any alcohol or drug abuse patient.[facility] the event this information is protected by the Federal Confidentiality of Alcohol and Drug Abuse Patient Records regulations: The Federal rules restrict any use of the information to criminally investigate or prosecute any alcohol or drug abuse patient.[facility] Reason for Visit (unrecogniz ed section and content) Reason Comments Procedure FNA of right thyroid Reason Comments Patient Update Reason Comments New Patient Testing for lidocain e Reason Comments Established Patient Local anesthetic zenobia ting Reason Comments Follow Up FNA Thyroid 08/24 Care Teams (unrecognized sec tion and content) [employer]er And Breaker Relationship Specialty Start Date End Date Nelia Smith DO Jaimee [address] [facility] [address] [place] [address] PCP - General Internal Medicine 05/06/23 [employer]er And [employer]aker Relationship Specialty Start Date End Date Chhaya Smithjc Wilson DO [address] [facility] [address] [place], [place] [address] PCP - General Internal Medicine 05/06/23 [employer]er And Breaker Relationship Specialty Start Date End Date Chhaya Smithjc Wilson DO [address] [facility] [address] [place], [place] [id number] PCP - General Internal Medicine 05/06/23 [employer]er And [employer]aker Relationship Specialty Start Date End Date Nelia Smith DO Jaimee [address] [facility] [address] [place], [place] [id number] PCP - General Internal Medicine 05/06/23 FOR RECORDS PERTAINING TO PATIENTS WHO ARE OR HAVE BEEN ENROLLED IN A CHEMICAL DEPENDENCY/SUBSTANCEABUSE PROGRAM, SOME INFORMATION MAY BE OMITTED. This clinical summary was aggregated from multiple sources. Caution should be exercised in using it in the provision of clinical care. This summary normalizes information from multiple sources, and as a consequence, information in this document may materially change the coding, format and clinical context of patient data. In addition, data may be omitted in some cases. CLINICAL DECISIONS SHOULD BE BASED ON THE PRIMARY CLINICAL RECORDS. [facility]. provides no warranty or guarantee of the accuracy or completeness of information in this document.
== END | disposition home or self-care (01) ==
PROVIDERS: PCP Internal Medicine; Referring Provider Internal Medicine; Visit Provider Internal Medicine
DX: I08.1 Rheumatic disorders of both mitral and tricuspid valves (principal); J44.9 Chronic obstructive pulmonary disease, unspecified; I45.10 Unspecified right bundle-branch block
CPT/HCPCS: 93306

== ENCOUNTER → 2024-02-16 | Outpatient (CLI) | payer MEDICARE, BC, SELFPAY ==
[2024-02-16 10:18] LABS: Anion Gap 5 (5-15); BUN 13 mg/dL (7-18); BUN/Creat Ratio 19.8 RATIO (10-20); Calcium,Total 9.1 mg/dL (8.5-10.1); Chloride 109 mmol/L (98-107); Creatinine, Serum 0.66 mg/dL (0.55-1.02); EST Glomerular Filtration Rate 92 mL/min (>60); Est Glom Filt Rate - Afr Amer 111 mL/min (>60); Glucose 98 mg/dL (74-106); Potassium 3.3 mmol/L (3.5-5.1); Sodium Level 145 mmol/L (136-145)
== END | disposition home or self-care (01) ==
LOC: MTLAB 07:42
PROVIDERS: PCP Internal Medicine; Referring Provider Internal Medicine Cardiovascular Disease; Visit Provider Internal Medicine Cardiovascular Disease
DX: I10 Essential (primary) hypertension (principal)
CPT/HCPCS: 36415; 80048

== ENCOUNTER → 2024-03-22 | Outpatient (CLI) | payer MEDICARE, BC, SELFPAY ==
[2024-03-22 10:28] LABS: Anion Gap 3 (5-15); BUN 11 mg/dL (7-18); BUN/Creat Ratio 16.7 RATIO (10-20); Chloride 109 mmol/L (98-107); Creatinine, Serum 0.66 mg/dL (0.55-1.02); EST Glomerular Filtration Rate 92 mL/min (>60); Est Glom Filt Rate - Afr Amer 111 mL/min (>60); Glucose 90 mg/dL (74-106); Potassium 3.7 mmol/L (3.5-5.1); Sodium Level 143 mmol/L (136-145)
== END | disposition home or self-care (01) ==
LOC: MTLAB 08:41
PROVIDERS: PCP Internal Medicine; Referring Provider Internal Medicine Cardiovascular Disease; Visit Provider Internal Medicine Cardiovascular Disease
DX: I10 Essential (primary) hypertension (principal); Z51.81 Encounter for therapeutic drug level monitoring; Z79.899 Other long term (current) drug therapy
CPT/HCPCS: 36415; 80048

== ENCOUNTER → 2024-04-21 | Outpatient (CLI) | payer MEDICARE, BC, SELFPAY ==
--- NOTE | 2024-04-21 14:13 | BD_ITS ---
STUDY: DUAL ENERGY X-RAY ABSORPTIOMETRY / DXA REASON FOR EXAM: Female, 78 years old. [id number] TECHNIQUE: Bone Mineral Density (BMD) measurements of lumbar spine and bilateral hips were obtained. COMPARISON: Comparison is made with prior study dated April 10, 2022. FINDINGS: Lumbar Spine (L1-L4): g/cm2 (1.020) / T-score (-0.2) / Z-score (2.5) Findings are suggestive of normal bone density with a low fracture risk. Left Femur Total: g/cm2 (0.881) / T-score (-0.5) / Z-score (1.6) Left Femoral Neck: g/cm2 (0.740) / T-score (-1.0) / Z-score (1.4) Right Femur Total: g/cm2 (0.828) / T-score (-0.9) / Z-score (1.2) Right Femoral Neck: g/cm2 (0.699) / T-score (-1.3) / Z-score (1.0) The T-Scores on the most recent prior examination were: Lumbar Spine (L1-L4): There has been worsening of bone density since the previous examination. Left Femur Total: which represents a worsening of 5%. Right Femur Total: which represents a worsening of 9.8%. BD/Dexa Bone Density Study IMPRESSION: The patient is considered osteopenic as outlined below according to World K[place] Organization (WHO) criteria with a low fracture risk. There has been worsening of bone density since the previous examination. Reference Information: The T-score is the number of standard deviations above or below the standard which is normal for young adults at their peak bone mineral density. The World Health Organization (WHO) interprets the T-scores as follows: Above -1 Normal bone density Between -1 and -2.5 Osteopenia Equal to / or below -2.5 Osteoporosis As a practical clinical guideline, osteopenia may be graded as follows: Mild -1 through -1.5 Moderate -1.6 through -2.0 Severe -2.1 through -2.4 The Z-score is the number of standard deviations above or below age-matched controls. A Z-score of less than -1.5 would be considered abnormal. References: 1. NIH Osteoporosis and Related Bone Diseases www osteo.org 2. International Society for Clinical Densitometry www iscd.org 3. National Osteoporosis Foundation www nof.org Electronically Signed: Lazaro Abrams MD at 14:03 EDT ,
--- NOTE | 2024-04-21 14:13 | BI_ITS ---
MAMMOGRAPHY - BILATERAL SCREENING REASON FOR EXAM: Female, 78 years old. Routine annual screening examination. PERTINENT HISTORY: Mother with breast cancer. Aunt with breast cancer. History of bilateral excisional breast biopsies. TECHNIQUE: Digital bilateral breast claudia (3D mammographic acquisition) in the CC and MLO projections. 2-D mediolateral oblique (MLO) and craniocaudad (CC) views of both breasts were obtained. CAD: Full Field Digital Mammography with Computer Added Detection was performed. COMPARISON: Comparison is made with prior study dated April 13, 2023 and April 10, 2022. FINDINGS: Breast Composition: There are scattered areas of fibroglandular density. There are no dominant masses or suspicious calcifications. Stable scattered bilateral macrocalcifications. No other significant abnormalities are identified. There has been no significant change since the prior study. BI/SCRN MAMM (CAD)W/CLAUDIA BILAT IMPRESSION: Stable bilateral screening mammogram. Yearly follow-up mammogram recommended. (A) ASSESSMENT CATEGORY: BIRADS Category 2: Benign. A letter regarding these results will be sent to the patient by the facility within 30 days. Approximately 10% of breast cancers are not detected by mammography. A normal mammogram should not delay biopsy of a clinically suspicious abnormality. [id number] Electronically Signed: Lazaro Abrams MD at 8:17 EDT ,
== END | disposition home or self-care (01) ==
LOC: OPBD 14:11
PROVIDERS: PCP Internal Medicine; Referring Provider Internal Medicine; Visit Provider Internal Medicine
DX: Z12.31 Encounter for screening mammogram for malignant neoplasm of breast (principal); Z78.0 Asymptomatic menopausal state
CPT/HCPCS: 77063; 77067; 77080

== ENCOUNTER → 2024-05-10 | Outpatient (CLI) | payer MEDICARE, BC, SELFPAY | END | disposition home or self-care (01) | LOC: LABSPEC 16:24 | PROVIDERS: PCP Internal Medicine; Referring Provider Nurse Practitioner; Visit Provider Nurse Practitioner | DX: N30.00 Acute cystitis without hematuria (principal) | CPT/HCPCS: 87086; 87088 ==

== ENCOUNTER 2024-10-18 10:30 | Emergency (ER) | payer MEDICARE, BC, SELFPAY ==
[2024-10-18 10:31] VITALS: BP 154/74; PULSE 102; RESP 14; TEMP 36.7; O2SAT 100
--- NOTE | 2024-10-18 10:53 | ED.VIS.GI ---
HPI HPI - GI History of Present Illness Chief Complaint: Diarrhea Narrative Narrative: 79-year-old female is status post right TKA by 2 weeks, was having problems with constipation over the last 5 days. She was on a bowel regime afterwards because she had been taking oxycodone and Tylenol for her right knee pain. She relates history that she had constipation on Thursday, and Thursday took her last laxative. Since then, she states that she had a fecal impaction that she had dugout of her rectum, and now has continued diarrhea and watery stool. No fevers or chills, no nausea or vomiting, no abdominal pain. However, she states that she has right knee pain but cannot take anything because she does not have anything in her bowels/stomach. Whenever she tries to eat or take medicine, her diarrhea acts up. She feels mildly dehydrated. She denies any redness to her right leg wound, and is supposed to have the carlitos out tomorrow. PFSH PFS Medical History Abnormal PFTs (pulmonary function tests) HTN (hypertension) DVT (deep venous thrombosis) Preop cardiovascular exam PUD (peptic ulcer disease) Thyroid nodule Vitamin D deficiency Insomnia Central serous chorioretinopathy of both eyes RBBB Diastolic dysfunction Carotid occlusion, bilateral Aortic dissection, thoracic Aortic aneurysm, abdominal Diverticulosis of colon Fibromyalgia Bladder mass Urinary, incontinence, stress female Patent foramen ovale Heart murmur Memory impairment Hyperparathyroidism Bone spur of finger IP joint Deficient knowledge of hysterectomy Vascular disease Skin cancer Pneumonia Parathyroid hormone deficiency Osteopenia Osteoarthritis IBS (irritable bowel syndrome) COPD (chronic obstructive pulmonary disease) Carpal tunnel syndrome Cataract Blood clot in vein UTI (urinary tract infection) Bone fracture Arthritis Home Medications ?Medication ?Instructions ?Recorded ?Last Taken ?Type aspirin 81 mg tablet,delayed 81 mg PO DAILY@0800 #30 TABLETS 12/10/15 Unknown Rx release acetaminophen 500 mg tablet 500 mg PO Q6H PRN 01/17/22 Unknown History (Tylenol Extra Strength) multivitamin (Daily Multi-Vitamin 1 tab PO DAILY 01/17/22 Unknown History tablet) vitamins A,C,I-hmrd-fstxoc 4,296 1 cap PO BID 01/17/22 Unknown History mcg-226 mg-90 mg capsule (PreserVision AREDS) calcium carbonate (Oyster Shell 500 mg PO DAILY 11/05/23 Unknown History Calcium) cholecalciferol (vit D3) 1,000 1 tab PO DAILY 11/05/23 Unknown History unit-vitamin K2 (MK4) 100 mcg tablet gabapentin 100 mg capsule 100 mg PO TID 11/27/23 Unknown History metoprolol tartrate 50 mg tablet 50 mg PO BID 11/27/23 Unknown History rosuvastatin 5 mg tablet 5 mg PO QHS 11/27/23 Unknown History vitamin B comp and C no.3 15 mg-10 1 cap PO DAILY 11/27/23 Unknown History mg-50 mg-5 mg-300 mg capsule (B Complex Plus Vitamin C) losartan 50 mg tablet 50 mg PO DAILY #30 tabs 02/23/24 Unknown Rx spironolactone 25 mg tablet 25 mg PO DAILY #30 tabs 02/24/24 Unknown Rx melatonin 10 mg tablet 5 mg PO HS PRN 09/15/24 Unknown History Allergy/AdvReac Type Severity Reaction Status Date / Time Corticosteroids Allergy Other Verified 10/18/24 10:32 (Glucocorticoids) meloxicam AdvReac Severe G.I. Bleed Verified 10/18/24 10:32 clavulanic acid (From AdvReac Mild nausea and Verified 10/18/24 10:32 Augmentin) vomiting acetaminophen (From Percocet) AdvReac Nausea Verified 10/18/24 10:32 amoxicillin AdvReac Vomiting Verified 10/18/24 10:32 cimetidine (From Tagamet) AdvReac Diarrhea Verified 10/18/24 10:32 cimetidine HCl (From Tagamet) AdvReac Diarrhea Verified 10/18/24 10:32 oxycodone HCl (From Percocet) AdvReac Nausea Verified 10/18/24 10:32 Family History Father Alcohol abuse Cancer Sister Diabetes Mother Cancer Diabetes Other Bowel disease Breast cancer Myocardial infarction Surgical History Hx of hysterectomy (~1988) History of tubal ligation (~1971) History of excision of lesion H/O mastectomy (~2001) Hx of appendectomy (~1964) H/O bladder repair surgery H/O lateral meniscus repair of right knee H/O thoracic aortic aneurysm repair (~12/01/14) Social History Smoking Status: Former smoker quit date: 09/28/14 alcohol intake: current alcohol intake frequency: a few times a week Alcohol type: wine and hard liquor substance use type: does not use caffeine: Yes (3 servings per day ) Type: carbonated beverages, coffee and tea what type of physical activity do you participate in: other ROS ROS ED ROS Narrative Constitutional: No fever, no chills. Generalized weakness/dehydration. HEENT: No sore throat. No neck pain. No loss of vision. No rhinorrhea. Cardiovascular: No chest pain. No palpitations. No pedal edema. Respiratory: No cough, no shortness of breath. Abdominal: No abdominal pain. No nausea. No vomiting. Was constipated, but now multiple episodes of diarrhea after taking laxatives. Diarrhea has been present for the last 3 to 4 days. Genitourinary: No dysuria. No hematuria. Musculoskeletal: No myalgias. Right knee pain status post right TKA by 2 weeks. Neurologic: No headaches. No dizziness. No lightheadedness. Skin: No rash. No change in color. Psychiatric: No depression. No anxiety. EXAM Physical Exam Narrative Exam Narrative: Afebrile. Vital signs noted. Nontoxic-appearing. Cardiovascular examination reveals mild tachycardia, lungs are clear to auscultation bilaterally. Abdomen is soft and nontender without guarding or rebound. Positive bowel sounds. Neurological examination nonfocal and nonlateralizing. Inspection of the right knee shows her incisions to be clean, dry, and intact without erythema or purulent drainage, no fluctuance, carlitos in place. Const Vital Signs: 10/18/24 10:31 10/18/24 12:31 10/18/24 14:00 Temperature 98.1 F Temperature Source Temporal Pulse Rate 102 H 91 79 Respiratory Rate 14 18 18 Blood Pressure 154/74 H 147/76 H 149/65 H Blood Pressure Mean 100 99 93 Pulse Ox 100 99 97 Oxygen Delivery Method Room Air Room Air Room Air MDM MDM MDM Narrative Medical decision making narrative: Differential diagnosis includes laxative induced diarrhea versus higher fecal impaction versus partial small bowel obstruction versus diverticulitis. History and physical does not necessarily support the latter 2 diagnoses. Patient will be bolused normal saline 1 L intravenously with suspicion for dehydration given her mild tachycardia. Do feel imaging should be obtained. She states that her primary care provider had ordered abdominal x-rays, but I do feel that given her age and comorbidities that CT should be obtained as well as basic laboratory work to look for dehydration. I reviewed her laboratory work and she has normal white count of 8.1 with hemoglobin 11.3, hematocrit 34.7, platelet count 273. BUN normal at 16 and creatinine 0.82, no signs of dehydration, sodium normal at 140 with potassium 4.4, chloride 104, no noted electrolyte imbalance. Glucose normal at 104. Anion gap normal at 6. LFTs are grossly normal. I reviewed the radiology report of the CT of the abdomen pelvis with IV contrast and there is diverticulosis but no evidence of acute diverticulitis. No colonic wall thickening. I am unsure as to the cause of her diarrhea. Her son spoke with the RN, after I had discussed discharge with the patient and her son. He states that he is no longer able to care for her at home, and that she has missed her physical therapy the last 2 times because of generalized weakness and knee pain, and the diarrhea. I discussed with them the possibility of observation versus admission for correction home placement/rehab. I had social work discussed this with her as well. She is agreeable at attempt to be transferred to a correction facility from the emergency department as she currently does not meet any admission criteria for 3 midnights. At this point in time, I do feel that she is medically cleared for direct admission to a correction facility. She has been accepted at [facility]. She will have PT and OT evaluate and treat at the facility and I do feel that she can be transferred by private vehicle as that is how she arrived here. Disposition is discharged to correction facility. Patient is in stable condition. History & Record Review Discussion w/independent historian: Patient Lab Data Attestation: I reviewed the patient's lab results. Labs: Laboratory Results - last 24 hr 10/18/24 11:17 WBC 8.1 RBC 3.65 L Hgb 11.3 L Hct 34.7 L MCV 95.1 MCH 31.0 MCHC 32.6 RDW Std Deviation 51.3 H RDW Coeff of Augustine 14.9 H Plt Count 273 MPV 9.9 Immature Gran % (Auto) 0.400 Neut % (Auto) 78.7 H Lymph % (Auto) 10.8 L Bond % (Auto) 8.5 Eos % (Auto) 1.1 Baso % (Auto) 0.5 Absolute Neuts (auto) 6.4 Absolute Lymphs (auto) 0.88 Nucleated RBC % 0 Sodium 140 Potassium 4.4 Chloride 104 Carbon Dioxide 30.0 Anion Gap 6 BUN 16 Creatinine 0.82 Est GFR (MDRD) Af Amer 86 Est GFR (MDRD) Non-Af 71 BUN/Creatinine Ratio 19.6 Glucose 104 Calcium 9.4 Total Bilirubin 1.10 H AST 28 ALT 20 Alkaline Phosphatase 53 Total Protein 7.2 Albumin 3.5 Globulin 3.7 Albumin/Globulin Ratio 0.9 Radiography Diagnostic Testing: Clinical Impression(s) from Imaging Studies Abdomen/Pelvis CT 10/18/24 11:53 IMPRESSION: Calcified granuloma in the right lower lobe. Calcified splenic granuloma. Sigmoid diverticulosis with no radiographic evidence of diverticulitis. Electronically Signed: Lazaro Abrams MD at 12:17 EST , Discharge Plan Triage Chief Complaint: Diarrhea ED Provider: Uriel Yang Dx/Rx/DC Orders Clinical Impression: Diarrhea, Postoperative pain of right knee, Unable to care for self Instructions: ED Diarrhea, Unknown Cause, ED Weakness (Uncertain Cause) Prescriptions: No Action PreserVision AREDS [id number] [id number] capsule 1 cap PO BID multivitamin [Daily Multi-Vitamin] Tablet 1 tab PO DAILY acetaminophen [Tylenol Extra Strength] 500 mg tablet 500 mg PO Q6H PRN calcium carbonate [Oyster Shell Calcium] 500 mg calcium (1,250 mg) tablet 500 mg PO DAILY vitamin D3-vitamin K2 (MK4) 1,000-100 unit-mcg tablet 1 tab PO DAILY gabapentin 100 mg capsule 100 mg PO TID Patient Comments: TAKE 1 CAPSULE BY MOUTH THREE TIMES A DAY rosuvastatin 5 mg tablet 5 mg PO QHS Patient Comments: TAKE 1 TABLET BY MOUTH AT BEDTIME melatonin 10 mg tablet 5 mg PO HS PRN B Complex Plus Vitamin C 59-77-55-5-300 mg capsule 1 cap PO DAILY Patient Comments: supplement aspirin 81 MG tablet 81 mg PO DAILY@0800 Qty: 30 0RF metoprolol tartrate 50 mg tablet 50 mg PO BID losartan 50 mg tablet 50 mg PO DAILY Qty: 30 11RF spironolactone 25 mg tablet 25 mg PO DAILY Qty: 30 11RF Primary Care Provider: Nelia Smith Referrals: Nelia Smith DO [Primary Care Provider] - Activity Restrictions/Additional Instructions: Patient okay/stable for discharge to [facility]. Physical therapy and Occupational Therapy to evaluate and treat. Okay for transport via private vehicle. Print Language: Turkish Disposition Disposition: Longterm Facility Discharge Location: [facility]
[2024-10-18] MEDS: 0.9% Normal Saline (1000mL) 1,000 ML 999 ML IV (11:22)
[2024-10-18] MEDS: Morphine 4 MG/ML Syringe IV ×2 (11:22→12:26)
[2024-10-18 11:26] LABS: Absolute Lymphocyte Count 0.88 X10^3/uL (0.83-4.51); Absolute Neutrophil Count 6.4 X10^3/uL (2.0-7.7); Basophil# 0.04 X10^3/uL; Basophil% 0.5 % (0-1); Eosinophil# 0.09 X10^3/uL; Eosinophils% 1.1 % (0-5); Hematocrit 34.7 % (37-47); Hemoglobin 11.3 g/dL (12.0-15.0); Lymphocyte # 0.88 X10^3/ul (0.83-4.51); Lymphocyte % 10.8 % (19-41); Mean Corp Hgb Conc 32.6 g/dL (32-36); Mean Corpuscular Volume 95.1 fL (81-99); Mean Platelet Vol. 9.9 fl (6.2-12.0); Monocyte# 0.69 X10^3/uL; Monocyte% 8.5 % (0-10); NRBC Flagged by Analyzer 0 % (0-5); Neutrophil # 6.41 X10^3/uL (2.7-7.7); Neutrophil % 78.7 % (47-70); Platelet Count 273 K/mm3 (150-450); RBC Distribution Width CV 14.9 % (11.6-14.6); RBC Distribution Width SD 51.3 fl (35.1-43.9); Red Blood Count 3.65 M/mm3 (4.2-5.4); White Blood Count 8.1 K/mm3 (4.4-11.0)
[2024-10-18 11:41] LABS: ALB/GLOB Ratio 0.9 RATIO (0.9-2.4); AST(SGOT) 28 U/L (15-37); Alanine Aminotransfer ALT/SGPT 20 U/L (13-56); Albumin, Serum 3.5 g/dL (3.2-5.0); Alkaline Phosphatase 53 U/L (45-117); Anion Gap 6 (5-15); BUN 16 mg/dL (7-18); BUN/Creat Ratio 19.6 RATIO (10-20); Calcium,Total 9.4 mg/dL (8.5-10.1); Chloride 104 mmol/L (98-107); Creatinine, Serum 0.82 mg/dL (0.55-1.02); EST Glomerular Filtration Rate 71 mL/min (>60); Est Glom Filt Rate - Afr Amer 86 mL/min (>60); Globulin 3.7 g/dL (2.2-4.2); Glucose 104 mg/dL (74-106); Potassium 4.4 mmol/L (3.5-5.1); Protein, Total 7.2 g/dL (6.4-8.2); Sodium Level 140 mmol/L (136-145)
--- NOTE | 2024-10-18 11:53 | CT_ITS ---
STUDY: CT ABDOMEN AND PELVIS WITH CONTRAST REASON FOR EXAM: Female, 79 years old. Diarrhea RADIATION DOSAGE (If Supplied By Facility): CTDIvol = ( 11.42 ) mGy, DLP = ( 649.49 ) mGycm TECHNIQUE: Transaxial images were obtained from the dome of the diaphragm to the symphysis pubis without oral contrast. IV 100mL Isovue-300 was administered. Sagittal and coronal images were reconstructed. Individualized dose optimization techniques were used for this CT. COMPARISON: Comparison is made with prior study dated March 27, 2022. FINDINGS: Calcified granuloma in the right lower lobe. The visualized portions of the heart are within normal limits. Normal liver. Normal gallbladder and extrahepatic biliary system. There are multiple benign calcified granulomata of the spleen. Normal pancreas. Normal bilateral adrenal glands. Stable 1 cm right renal angiomyolipoma. Normal left kidney. Incidental note is made of a left retroaortic renal vein. Normal visualized stomach. Normal small intestine. There are multiple colonic diverticula consistent with diverticulosis. The appendix is visualized and appears normal. Stable appearance of the endoluminal stent graft of the proximal abdominal aortic aneurysm. Atherosclerotic plaque formation of the abdominal aorta and major visceral branches. Normal inferior vena cava. Normal retroperitoneum. Normal urinary bladder. There is absence of the uterus consistent with a prior hysterectomy. There is a right-sided inguinal hernia containing adipose tissue. Normal osseous structures. CT/Abdomen/Pelvis W IV Cont ONLY IMPRESSION: Calcified granuloma in the right lower lobe. Calcified splenic granuloma. Sigmoid diverticulosis with no radiographic evidence of diverticulitis. Electronically Signed: Lazaro Abrams MD at 12:17 EST ,
[2024-10-18 12:31] VITALS: BP 147/76; PULSE 91; RESP 18; O2SAT 99
--- NOTE | 2024-10-18 13:21 | CM.ED ---
Social Work SW met with patient and son regarding DC plans. Patient does not feel able to care for self at home at this time due to having diarrhea and a recent knee surgery. Patient states she is falling behind on her outpatient therapy due to not feeling well, states she cannot make it to the bathroom on time because of her knee pain. SW reviewed HH and SNF options. Patient and son feel that patient would benefit from short term SNF referral. Patient aware that she would be required to pay privately, patient stating she understands and is okay with that. SW offered to provide a list of a list of?SNF?providers that would include quality and resource use data and consistent with the patient's preferred geographic region and medical needs, however patient declined list stating she knew her options. Patient requesting referral sent to [facility] and second choice to be [facility]. SW sent referral to [facility] at this time. Fidelia Cisneros, PROCESSING REP, GORE SEAMER
[2024-10-18 14:00] VITALS: BP 149/65; PULSE 79; RESP 18; O2SAT 97
[2024-10-18 15:00] VITALS: BP 146/74; PULSE 71; RESP 16; TEMP 36.4; O2SAT 97
--- NOTE | 2024-10-18 15:10 | CM.ED ---
Social Work Liana from [facility] notified SW that they are able to accept patient. Patient and son notified of same. Son stated he was able to drive patient to [facility]. PASRR completed and all appropriate paperwork uploaded to [facility]. Nurse notified of N2N number [phone] or [phone]. No further needs identified at this time. Fidelia Cisneros, WEAVING MACHINE OPERATOR, COLOR CORRECTOR
--- NOTE | 2024-10-18 15:22 | ED.RN ---
Nurse to nurse report called to Kaia at [facility]
== END 2024-10-18 15:40 | disposition skilled nursing facility (03) ==
PROVIDERS: Emergency Provider Emergency Medicine; PCP Internal Medicine; Visit Provider Emergency Medicine
DX: R19.7 Diarrhea, unspecified (principal); J44.9 Chronic obstructive pulmonary disease, unspecified; I10 Essential (primary) hypertension; M25.561 Pain in right knee; Z87.891 Personal history of nicotine dependence; Z96.651 Presence of right artificial knee joint; G89.18 Other acute postprocedural pain
CPT/HCPCS: 74177; 80053; 85025; 96361; 96374; 96376; 99283; Q9967; A4216

== ENCOUNTER → 2024-10-19 05:00 | Outpatient (REF) | payer MEDICARE, BC, SELFPAY ==
[2024-10-19 07:30] LABS: Absolute Neutrophil Count 3.8 X10^3/uL (2.0-7.7); Basophil# 0.05 X10^3/uL; Basophil% 0.9 % (0-1); Eosinophil# 0.17 X10^3/uL; Hematocrit 32.5 % (37-47); Hemoglobin 10.3 g/dL (12.0-15.0); Lymphocyte % 17.5 % (19-41); Mean Corp Hgb Conc 31.7 g/dL (32-36); Mean Corpuscular Hgb 30.7 pg (27.0-32.0); Mean Corpuscular Volume 96.7 fL (81-99); Mean Platelet Vol. 10.8 fl (6.2-12.0); Monocyte# 0.64 X10^3/uL; Monocyte% 11.2 % (0-10); NRBC Flagged by Analyzer 0 % (0-5); Neutrophil # 3.84 X10^3/uL (2.7-7.7); Neutrophil % 66.9 % (47-70); Platelet Count 239 K/mm3 (150-450); RBC Distribution Width SD 51.6 fl (35.1-43.9); Red Blood Count 3.36 M/mm3 (4.2-5.4); White Blood Count 5.7 K/mm3 (4.4-11.0)
[2024-10-19 07:57] LABS: ALB/GLOB Ratio 0.9 RATIO (0.9-2.4); AST(SGOT) 22 U/L (15-37); Alanine Aminotransfer ALT/SGPT 17 U/L (13-56); Albumin, Serum 3.1 g/dL (3.2-5.0); Alkaline Phosphatase 50 U/L (45-117); Anion Gap 7 (5-15); BUN 12 mg/dL (7-18); BUN/Creat Ratio 18.6 RATIO (10-20); Calcium,Total 9.2 mg/dL (8.5-10.1); Chloride 107 mmol/L (98-107); Creatinine, Serum 0.64 mg/dL (0.55-1.02); EST Glomerular Filtration Rate 94 mL/min (>60); Est Glom Filt Rate - Afr Amer 114 mL/min (>60); Globulin 3.4 g/dL (2.2-4.2); Glucose 85 mg/dL (74-106); Potassium 4.4 mmol/L (3.5-5.1); Protein, Total 6.5 g/dL (6.4-8.2); Sodium Level 143 mmol/L (136-145)
== END ==
LOC: OLS.WHLTCC 05:00
PROVIDERS: PCP Internal Medicine; Visit Provider Internal Medicine
DX: Z47.1 Aftercare following joint replacement surgery (principal); K59.00 Constipation, unspecified; M62.561 Muscle wasting and atrophy, not elsewhere classified, right lower leg; M62.562 Muscle wasting and atrophy, not elsewhere classified, left lower leg
CPT/HCPCS: 36415; 80053; 85025; 87493

== ENCOUNTER 2024-10-19 17:12 | Emergency (ER) | payer MEDICARE, BC, SELFPAY ==
[2024-10-19 17:12] VITALS: BP 139/53; PULSE 84; RESP 20; TEMP 36.4; O2SAT 100
--- NOTE | 2024-10-19 17:19 | US_ITS ---
INDICATION: Right lower extremity pain EXAMINATION: Ultrasound US Venous Duplex LE Unilat / Limited TECHNIQUE: Rivera scale, pulse wave, and color flow Doppler imaging was performed of the lower extremity venous system. The right greater saphenous, common femoral, femoral, and popliteal veins were interrogated. COMPARISON: None. FINDINGS: There is normal compression, augmentation, and color flow signal throughout the visualized deep lower extremity veins. US/Venous Duplex Imag/Limited/Uni IMPRESSION: No sonographic evidence of deep venous thrombosis. Electronically Signed: Brown Venegas MD at 18:22 EST ,
--- NOTE | 2024-10-19 19:34 | ED.VIS.LOWEX ---
HPI History of Present Illness HPI Narrative: 79-year-old female on September 29 had a right total knee replacement done by Dr. Mario Heck at [facility]. Patient was on Xarelto for about 2 weeks. Was seen today in their office I believe by one of their RODRÍGUEZ's. Sent her into the swelling of evaluated. Chief Complaint: Lower Extremity Injury Informant: patient and family Onset/Context/Timing Onset: Days Context: Gradual Onset Timing: Continuous Current Severity: Mild Maximum Severity: Mild Associated Symptoms Associated Symptoms: Negative for Parasthesia or Weakness Narrative Narrative: 79-year-old female status post right knee replacement on 09/29/2024. Was on Xarelto. Was sent in today by the orthopedic office due to swelling of her right lower extremity. Prior similar symptoms: Yes Recent Illness/Hospitalization: Yes PFSH PFSH Medical History Abnormal PFTs (pulmonary function tests) HTN (hypertension) DVT (deep venous thrombosis) Preop cardiovascular exam PUD (peptic ulcer disease) Thyroid nodule Vitamin D deficiency Insomnia Central serous chorioretinopathy of both eyes RBBB Diastolic dysfunction Carotid occlusion, bilateral Aortic dissection, thoracic Aortic aneurysm, abdominal Diverticulosis of colon Fibromyalgia Bladder mass Urinary, incontinence, stress female Patent foramen ovale Heart murmur Memory impairment Hyperparathyroidism Bone spur of finger IP joint Deficient knowledge of hysterectomy Vascular disease Skin cancer Pneumonia Parathyroid hormone deficiency Osteopenia Osteoarthritis IBS (irritable bowel syndrome) COPD (chronic obstructive pulmonary disease) Carpal tunnel syndrome Cataract Blood clot in vein UTI (urinary tract infection) Bone fracture Arthritis Home Medications ?Medication ?Instructions ?Recorded ?Last Taken ?Type aspirin 81 mg tablet,delayed 81 mg PO DAILY@0800 #30 TABLETS 12/10/15 Unknown Rx release acetaminophen 500 mg tablet 500 mg PO Q6H PRN fever or pain 01/17/22 Unknown History (Tylenol Extra Strength) multivitamin (Daily Multi-Vitamin 1 tab PO DAILY 01/17/22 Unknown History tablet) vitamins A,C,F-rmwm-xalxzz 4,296 1 cap PO BID 01/17/22 Unknown History mcg-226 mg-90 mg capsule (PreserVision AREDS) calcium carbonate (Oyster Shell 500 mg PO DAILY 11/05/23 Unknown History Calcium) cholecalciferol (vit D3) 1,000 1 tab PO DAILY 11/05/23 Unknown History unit-vitamin K2 (MK4) 100 mcg tablet gabapentin 100 mg capsule 100 mg PO TID 11/27/23 Unknown History metoprolol tartrate 50 mg tablet 50 mg PO BID 11/27/23 Unknown History rosuvastatin 5 mg tablet 5 mg PO QHS 11/27/23 Unknown History vitamin B comp and C no.3 15 mg-10 1 cap PO DAILY 11/27/23 Unknown History mg-50 mg-5 mg-300 mg capsule (B Complex Plus Vitamin C) losartan 50 mg tablet 50 mg PO DAILY #30 tabs 02/23/24 Unknown Rx spironolactone 25 mg tablet 25 mg PO DAILY #30 tabs 02/24/24 Unknown Rx melatonin 10 mg tablet 5 mg PO HS PRN insomnia 09/15/24 Unknown History omeprazole 20 mg capsule,delayed 20 mg PO DAILY 10/18/24 Unknown History release oxycodone 5 mg tablet 5 - 10 mg PO Q4H PRN PRN pain 10/18/24 Unknown History polyethylene glycol 3350 17 4 g PO .EVERY 3 DAYS 10/18/24 Unknown History gram/dose oral powder (Miralax) psyllium husk 3.4 gram/5.4 gram 0.25 tsp PO .EVERY 3 DAYS 10/18/24 Unknown History oral powder (Metamucil) sennosides 8.6 mg-docusate sodium 2 tab-cap PO BID 10/18/24 Unknown History 50 mg tablet (Senna with Docusate Sodium) oxycodone 5 mg tablet 5 mg PO Q4H PRN pain 14 days #20 10/19/24 Unknown Rx tabs Allergy/AdvReac Type Severity Reaction Status Date / Time Corticosteroids Allergy Other Verified 10/18/24 10:32 (Glucocorticoids) meloxicam AdvReac Severe G.I. Bleed Verified 10/18/24 10:32 clavulanic acid (From AdvReac Mild nausea and Verified 10/18/24 10:32 Augmentin) vomiting acetaminophen (From Percocet) AdvReac Nausea Verified 10/18/24 10:32 amoxicillin AdvReac Vomiting Verified 10/18/24 10:32 cimetidine (From Tagamet) AdvReac Diarrhea Verified 10/18/24 10:32 cimetidine HCl (From Tagamet) AdvReac Diarrhea Verified 10/18/24 10:32 oxycodone HCl (From Percocet) AdvReac Nausea Verified 10/18/24 10:32 Family History Father Alcohol abuse Cancer Sister Diabetes Mother Cancer Diabetes Other Bowel disease Breast cancer Myocardial infarction Surgical History Hx of hysterectomy (~1988) History of tubal ligation (~1971) History of excision of lesion H/O mastectomy (~2001) Hx of appendectomy (~1964) H/O bladder repair surgery H/O lateral meniscus repair of right knee H/O thoracic aortic aneurysm repair (~12/01/14) Social History Smoking Status: Former smoker quit date: 09/28/14 alcohol intake: current alcohol intake frequency: a few times a week Alcohol type: wine and hard liquor substance use type: does not use caffeine: Yes (3 servings per day ) Type: carbonated beverages, coffee and tea what type of physical activity do you participate in: other ROS ROS ED ROS Narrative Recent constipation and diarrhea. Constitutional Constitutional ED: Denies fever(s) Eyes Eyes: Denies blurry vision ENT ENT ED: Denies ear pain Cardiovascular Cardiovascular: Denies chest pain Respiratory/Chest Respiratory/Chest: Denies cough Gastrointestinal Gastrointestinal: Denies abdominal pain Genitourinary Genitourinary ED: Denies dysuria Musculoskeletal Musculoskeletal: Denies arthralgias Integumentary Denies abscess Neurologic Neurologic: Denies headache(s) Psychiatric Psychiatric: Denies anxiety Endocrine Endocrinology: Denies polydipsia Hematologic/Lymphatic Hematologic/Lymphatic: Denies easy bleeding Allergic/Immunologic Allergic/Immunologic ED: Denies mouth swelling EXAM Physical Exam Narrative Exam Narrative: Well-appearing 79-year-old female. Sitting upright in bed. Vital signs are stable afebrile. Pulse ox 100% on room air no hypoxia. Family members in the room. H EENT exam unremarkable. Pupils round react to light. Moist with membranes. Neck nontender no JVD. Lungs clear to auscultation bilaterally. Heart regular rate and rhythm rate about 80 no murmur. Chest wall ribs nontender. Abdomen soft nontender. No peritoneal signs. Back nontender. Patient is moving all 4 extremities. Specifically the right knee well-healing anterior surgical incision. Dry and clean. She has mild swelling in her right calf. Mild pitting edema. She is able to flex and extend the right knee is somewhat limited due to the recent surgery. There is no signs of infection. There is no redness or warmth. No inguinal lymphadenopathy. She has mild swelling to the lower leg. There is no specific calf tenderness or cord. Right foot is neurovascularly intact. Left lower extremity is nontender nonswollen. Const Vital Signs: 10/19/24 17:12 Temperature 97.5 F L Temperature Source Temporal Pulse Rate 84 Respiratory Rate 20 H Blood Pressure 139/53 H Blood Pressure Mean 81 Pulse Ox 100 Oxygen Delivery Method Room Air Positive well nourished and well developed; Negative for obese, cachectic, contractures or unkempt General Appearance ED: well developed and NAD; Negative for unkempt, cachectic or contractures Nutritional Appearance: Negative for cachectic or obese HEENT Reports moist mucous membranes normocephalic and atraumatic Eyes PERRL Neck full ROM and supple Chest Wall inspection of chest normal and palpation of chest normal Resp normal respiratory effort, no retractions and clear to auscultation bilaterally Cardio regular rate, regular rhythm, S1 normal heart sound, S2 normal heart sound and no murmurs GI non-tender, non-distended and no masses Palpation: soft; Negative for tender, guarding or rebound tenderness present Back/Spine no CVA tenderness General Back: Negative for CVA tenderness Cervical Spine: Negative for cervical spine tenderness Thoracic Spine / Upper Back: Negative for thoracic spinal tenderness Lumbar Spine / Lower Back: Negative for lumbar spinal tenderness Extremity normal to inspection and full ROM Extremity Narrative: Except for the right lower extremity. Status post right knee replacement surgery. Anterior surgical wound. Gi taken out. No signs of infection. No redness or warmth. The right lower leg has mild swelling with 1+ edema. Foot is neurovascularly intact. There is minimal bruising. There is no significant hematoma. There is no significant calf tenderness. There is no streaking or inguinal lymphadenopathy. This appears to be normal postop healing after total knee. General Extremety ED: Yes edema; Negative for cyanosis General Extremity: edema; Negative for cyanosis Neuro oriented x3, CN's II-XII intact bilaterally and moves all extremities Sensorium / Orientation: alert, oriented to person, oriented to place and oriented to time Motor Exam: strength 5/5 throughout Psych mental status grossly normal Appearance: Negative for unkempt Skin no wounds Lesions: no lesions Rashes: no rashes MDM MDM MDM Narrative Medical decision making narrative: 79-year-old status post knee replacement. Noninvasive study was done today there is no signs of a DVT. This looks like normal postop swelling. No significant hematoma. No infection. She will be discharged back to home. I discussed the ultrasound results with her and her family. Radiography Diagnostic Testing: Clinical Impression(s) from Imaging Studies Venous Duplex 10/19/24 17:19 IMPRESSION: No sonographic evidence of deep venous thrombosis. Electronically Signed: Brown Venegas MD at 18:22 EST , Discharge Plan Triage Chief Complaint: Lower Extremity Injury ED Provider: Elliott Guerrero Dx/Rx/DC Orders Clinical Impression: H/O total knee replacement, Edema of right lower extremity Prescriptions: No Action PreserVision AREDS [id number] tdam-fo-keli capsule 1 cap PO BID multivitamin [Daily Multi-Vitamin] Tablet 1 tab PO DAILY acetaminophen [Tylenol Extra Strength] 500 mg tablet 500 mg PO Q6H PRN (Reason: fever or pain) calcium carbonate [Oyster Shell Calcium] 500 mg calcium (1,250 mg) tablet 500 mg PO DAILY vitamin D3-vitamin K2 (MK4) 1,000-100 unit-mcg tablet 1 tab PO DAILY gabapentin 100 mg capsule 100 mg PO TID Patient Comments: TAKE 1 CAPSULE BY MOUTH THREE TIMES A DAY rosuvastatin 5 mg tablet 5 mg PO QHS Patient Comments: TAKE 1 TABLET BY MOUTH AT BEDTIME melatonin 10 mg tablet 5 mg PO HS PRN (Reason: insomnia) B Complex Plus Vitamin C [id number] mg capsule 1 cap PO DAILY Patient Comments: supplement aspirin 81 MG tablet 81 mg PO DAILY@0800 Qty: 30 0RF metoprolol tartrate 50 mg tablet 50 mg PO BID sennosides-docusate sodium [Senna with Docusate Sodium] 8.6-50 mg tablet 2 tab-cap PO BID oxycodone 5 mg tablet 5 - 10 mg PO Q4H PRN PRN (Reason: pain) omeprazole 20 mg capsule,delayed release(DR/EC) 20 mg PO DAILY polyethylene glycol 3350 [Miralax] 17 gram/dose powder 4 g PO .EVERY 3 DAYS Metamucil 3.4 gram/5.4 gram powder 0.25 tsp PO .EVERY 3 DAYS Rx Instructions: mix into at least 4 oz water or juice before administering losartan 50 mg tablet 50 mg PO DAILY Qty: 30 11RF spironolactone 25 mg tablet 25 mg PO DAILY Qty: 30 11RF oxycodone 5 mg tablet 5 mg PO Q4H PRN (Reason: pain) 14 Days Qty: 20 0RF Primary Care Provider: Nelia Smith Referrals: Nelia Smith DO [Primary Care Provider] - Mario Heck MD [Med Staff - Active Staff] - Keep Sofia appointment Activity Restrictions/Additional Instructions: Ice and elevate your leg to decrease the swelling. You may use Imodium for the diarrhea if need be. Follow-up with your orthopedic physician as scheduled. Print Language: [place] Disposition Disposition: Home, Self Care
--- NOTE | 2024-10-19 19:55 | CM.ED ---
Social Work SW had assisted patient in being admitted to SNF yesterday, stopped in room to see how the admission went and if there were any concerns. Patient stated the admission went well and she was settling in her new room. No further needs identified. Fidelia Cisneros, CONTRACTING OFFICER, BUTTON GRADER
== END 2024-10-19 19:46 | disposition home or self-care (01) ==
PROVIDERS: Emergency Provider Emergency Medicine; PCP Internal Medicine; Visit Provider Emergency Medicine
DX: Z96.651 Presence of right artificial knee joint (principal); J44.9 Chronic obstructive pulmonary disease, unspecified; Z86.718 Personal history of other venous thrombosis and embolism; I10 Essential (primary) hypertension; Z87.891 Personal history of nicotine dependence; Z79.01 Long term (current) use of anticoagulants; Z79.899 Other long term (current) drug therapy; R60.0 Localized edema
CPT/HCPCS: 93971; 99282

== ENCOUNTER → 2024-10-21 | Outpatient (CLI) | payer MEDICARE, BC, SELFPAY | END | disposition home or self-care (01) | LOC: LABSPEC 06:33 | PROVIDERS: PCP Internal Medicine; Visit Provider Internal Medicine | DX: R48.8 Other symbolic dysfunctions (principal) ==

== ENCOUNTER → 2024-12-05 | Outpatient (CLI) | payer MEDICARE, BC, SELFPAY ==
[2024-12-05 08:42] LABS: Bacteria 0 SEEN /hpf (None Seen); Mucous, Urine 0 SEEN /hpf (<or=2+)
[2024-12-05 10:56] LABS: Color, Urine Yellow (Yellow); Glucose, Dipstick Normal (Normal); Ketone-Dipstick Negative (Negative); Leukocyte Esterase-Dipstick 100 /ul (Negative); Nitrite-Dipstick Negative (Negative); Occult Blood-Urine 150 /ul (Negative); Protein-Dipstick 30 mg/dl (Negative); Urine Bilirubin Dipstick Negative (Negative); Urine Clarity Clear (Clear); Urine Urobilinogen 1 mg/dl (Normal)
[2024-12-05 11:15] LABS: Absolute Lymphocyte Count 0.97 X10^3/uL (0.83-4.51); Absolute Neutrophil Count 4.9 X10^3/uL (2.0-7.7); Basophil# 0.04 X10^3/uL; Basophil% 0.6 % (0-1); Eosinophil# 0.19 X10^3/uL; Eosinophils% 2.8 % (0-5); Hematocrit 36.8 % (37-47); Hemoglobin 11.8 g/dL (12.0-15.0); Lymphocyte # 0.97 X10^3/ul (0.83-4.51); Lymphocyte % 14.4 % (19-41); Mean Corp Hgb Conc 32.1 g/dL (32-36); Mean Corpuscular Hgb 30.4 pg (27.0-32.0); Mean Corpuscular Volume 94.8 fL (81-99); Mean Platelet Vol. 11.4 fl (6.2-12.0); Monocyte# 0.64 X10^3/uL; Monocyte% 9.5 % (0-10); NRBC Flagged by Analyzer 0 % (0-5); Neutrophil # 4.85 X10^3/uL (2.7-7.7); Neutrophil % 72.3 % (47-70); Platelet Count 180 K/mm3 (150-450); RBC Distribution Width CV 14.3 % (11.6-14.6); RBC Distribution Width SD 50.2 fl (35.1-43.9); Red Blood Count 3.88 M/mm3 (4.2-5.4); White Blood Count 6.7 K/mm3 (4.4-11.0)
[2024-12-05 11:17] LABS: Red Blood Cells-Urine 5-10 SEEN /hpf (0-5); White Blood Cells 0-5 SEEN /hpf (0-5)
[2024-12-05 11:18] LABS: Calcium Oxalate Crystals Ur 1+ /hpf (<or=2+); Squamous Epithelial Cells - UA 0-5 SEEN /hpf (5-10)
[2024-12-05 11:36] LABS: Microalbumin,Random Urine 16.1 mg/L (NO RANGE EST.); Microalbumin:Creatinine Ratio 92.5 mg/g CRE
[2024-12-05 12:07] LABS: ALB/GLOB Ratio 1.3 RATIO (0.9-2.4); AST(SGOT) 33 U/L (<=31); Alanine Aminotransfer ALT/SGPT 38 U/L (<=34); Albumin, Serum 3.8 g/dL (3.4-4.8); Alkaline Phosphatase 69 U/L (35-104); Anion Gap 12 (5-15); BUN 21 mg/dL (4-19); BUN/Creat Ratio 31.5 RATIO (10-20); Calcium,Total 9.2 mg/dL (7.6-11.0); Carbon Dioxide 25.3 mmol/L (21.0-32.0); Chloride 107 mmol/L (98-108); Creatinine, Serum 0.66 mg/dL (0.70-1.20); EST Glomerular Filtration Rate 88 (>60); Globulin 2.9 g/dL (2.2-4.2); Glucose 105 mg/dL (70-99); Potassium 3.7 mmol/L (3.3-5.1); Protein, Total 6.7 g/dL (5.9-8.4); Sodium Level 145 mmol/L (133-145); Total Bilirubin 0.52 mg/dL (0.00-1.30)
[2024-12-05 12:51] LABS: Cholesterol 92 mg/dL (<=200); High Density Lipoprotein 47 mg/dL; Low Density Lipoprotein Calc. 33 mg/dL; Triglycerides 61 mg/dL; Very Low Density Lipoprotein 12 mg/dL (5-40); Vitamin D,25 Hydroxy 48.2 ng/mL (30-100); cholesterol:hdl ratio screen 1.97
== END | disposition home or self-care (01) ==
LOC: MTLAB 08:37
PROVIDERS: PCP Internal Medicine; Referring Provider Internal Medicine; Visit Provider Internal Medicine
DX: E55.9 Vitamin D deficiency, unspecified (principal); I10 Essential (primary) hypertension
CPT/HCPCS: 36415; 80053; 80061; 81001; 82043; 82306; 82570; 85025

== ENCOUNTER → 2024-12-29 | Outpatient (CLI) | payer MEDICARE, BC, SELFPAY ==
--- NOTE | 2024-12-29 12:26 | US_ITS ---
PROCEDURE: THYROID 12/29/2024 REASON FOR EXAM: THYROID NODULE (E04.1) TECHNIQUE: Thyroid ultrasound COMPARISON: Prior thyroid ultrasound 05/01/2023. FINDINGS: Right thyroid lobe measures 5.1 x 2.1 x 2.7 cm. Left thyroid lobe measures 4.7 x 1.7 x 1.6 cm. Isthmus thickness is0.3 cm. Thyroid Size: Normal Background Echotexture: Heterogeneous Thyroid Nodules: Right inferior thyroid nodule measures 2.3 x 1.5 x 2.2 cm, mixed cystic and solid, isoechoic, wider than tall, smooth margins without calcification. TR-3. No suspicious left thyroid nodules. US/Thyroid IMPRESSION: TR 3 right inferior thyroid nodule, which meets ACR TI-RADS criteria for 1 year follow-up. Reading Location: [id number]
== END | disposition home or self-care (01) ==
LOC: OPUS 12:25
PROVIDERS: PCP Internal Medicine; Referring Provider Internal Medicine; Visit Provider Internal Medicine
DX: E04.1 Nontoxic single thyroid nodule (principal)
CPT/HCPCS: 76536

== ENCOUNTER → 2025-02-24 | Outpatient (CLI) | payer MEDICARE, BC, SELFPAY ==
[2025-02-24 10:53] LABS: Absolute Lymphocyte Count 0.95 X10^3/uL (0.83-4.51); Basophil# 0.04 X10^3/uL; Basophil% 0.8 % (0-1); Eosinophil# 0.19 X10^3/uL; Hematocrit 38.1 % (37-47); Hemoglobin 11.6 g/dL (12.0-15.0); Lymphocyte # 0.95 X10^3/ul (0.83-4.51); Lymphocyte % 20.1 % (19-41); Mean Corp Hgb Conc 30.4 g/dL (32-36); Mean Corpuscular Hgb 28.2 pg (27.0-32.0); Mean Corpuscular Volume 92.7 fL (81-99); Mean Platelet Vol. 11.7 fl (6.2-12.0); Monocyte# 0.56 X10^3/uL; Monocyte% 11.8 % (0-10); NRBC Flagged by Analyzer 0 % (0-5); Neutrophil # 2.97 X10^3/uL (2.7-7.7); Neutrophil % 62.9 % (47-70); Platelet Count 141 K/mm3 (150-450); RBC Distribution Width CV 14.6 % (11.6-14.6); RBC Distribution Width SD 49.6 fl (35.1-43.9); Red Blood Count 4.11 M/mm3 (4.2-5.4); White Blood Count 4.7 K/mm3 (4.4-11.0)
== END | disposition home or self-care (01) ==
LOC: MTLAB 08:08
PROVIDERS: PCP Internal Medicine; Referring Provider Internal Medicine; Visit Provider Internal Medicine
DX: D50.0 Iron deficiency anemia secondary to blood loss (chronic) (principal)
CPT/HCPCS: 36415; 85025

== ENCOUNTER → 2025-04-25 | Outpatient (CLI) | payer MEDICARE, BC, SELFPAY ==
--- NOTE | 2025-04-25 14:23 | BI_ITS ---
EXAM: SCRN MAMM (CAD)W/CLAUDIA BILAT DATE: 04/25/2025 CLINICAL HISTORY: F, Age 79 y/o , SCRN MAMM (CAD)W/CLAUDIA BILAT; DUE AFTER 04/21/2025 Mother with breast cancer. Aunt with breast cancer. History of prior bilateral excisional breast biopsies. TECHNIQUE: SCRN MAMM (CAD)W/CLAUDIA BILAT COMPARISON: Prior exam(s) dated April 22, 2024.. FINDINGS: TISSUE DENSITY: There are scattered areas of fibroglandular density. Bilateral Breast Mammographic Findings: No significant masses, calcifications or other abnormalities are identified. 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 No suspicious masses, areas of developing architectural distortion, or suspicious calcifications. There has been no significant interval change. BI/SCRN MAMM (CAD)W/CLAUDIA BILAT IMPRESSION: Stable examination. OVERALL FINAL ASSESSMENT BI-RADS 2: BENIGN RECOMMENDATION: Routine annual follow-up in 1 Year A letter with findings and recommendations will be mailed to the patient. Reading Location: [id number]
== END | disposition home or self-care (01) ==
LOC: OPBI 14:22
PROVIDERS: PCP Internal Medicine; Referring Provider Internal Medicine; Visit Provider Internal Medicine
DX: Z12.31 Encounter for screening mammogram for malignant neoplasm of breast (principal)
CPT/HCPCS: 77063; 77067